=== PATIENT | female | born 1955 | race Two or more races ===

== ENCOUNTER → 2020-08-23 09:37 | Outpatient (BNVA) | payer MEDICARE, MEDICAID, SELFPAY | PROVIDERS: PCP Internal Medicine; Visit Provider Internal Medicine Endocrinology, Diabetes & Metabolism | DX: Z13.89 Encounter for screening for other disorder (principal) | CPT/HCPCS: Q3014 ==

== ENCOUNTER → 2020-10-16 09:46 | Outpatient (BNVA) | payer MEDICARE, MEDICAID, SELFPAY | PROVIDERS: PCP Internal Medicine; Visit Provider Nurse Practitioner Gerontology | DX: E11.65 Type 2 diabetes mellitus with hyperglycemia (principal); E11.21 Type 2 diabetes mellitus with diabetic nephropathy; E11.42 Type 2 diabetes mellitus with diabetic polyneuropathy; E78.5 Hyperlipidemia, unspecified; I10 Essential (primary) hypertension; E66.9 Obesity, unspecified | CPT/HCPCS: 36415; 80053; 80061; 82043; 82607; 82947; 83036; 83721; 84439; 84443; 85027; 99212 ==

== ENCOUNTER 2020-10-16 10:49 | Outpatient (REF) | payer MEDICARE, MEDICAID, SELFPAY ==
[2020-10-16 13:56] LABS: Hematocrit 38.4 % (37-47); Hemoglobin 11.8 g/dl (12.0-16.0); Mean Corpuscular HGB Conc 30.7 g/dl (31.0-35.0); Mean Corpuscular Hemoglobin 24.9 pg (27.0-33.0); Mean Platelet Volume 12.9 fL (9.4-12.3); Platelet Count 167 X10*3/uL (160-400); Red Blood Count 4.74 X10*6/uL (4.20-5.50); Red Cell Distribution Width 13.2 % (11.0-16.0); White Blood Count 5.6 X10*3/uL (4.8-10.8)
[2020-10-16 14:02] LABS: Estimated Average Glucose 237 mg/dL; Hemoglobin A1c % 9.9 %
[2020-10-16 14:37] LABS: Alanine Aminotransferase 14 U/L (0-31); Albumin Level 4.6 g/dL (3.5-5.0); Alkaline Phosphatase 78 U/L (39-117); Anion Gap 19 (12-20); Aspartate Amino Transferase 15 U/L (5-31); Bilirubin Total 0.2 mg/dL (0.0-1.0); Blood Urea Nitrogen 22 mg/dL (9-16); Calcium 9.9 mg/dL (8.4-10.2); Carbon Dioxide 21 mmol/L (22-29); Chloride 109 mmol/L (96-108); Cholesterol 198 mg/dL; Creatinine Urine 64.65 mg/dL; Estimated Glomerular Filt Rate > 60; Glucose Fasting 132 mg/dL (60-99); HDL Cholesterol 43 mg/dL; LDL Cholesterol Calculated 125 mg/dl; Microalbum/Creatinine Ratio Ur 114.4 ug/mg cr; Potassium 4.8 mmol/L (3.3-5.1); Sodium 144 mmol/L (135-145); Total Protein 8.2 g/dL (6.5-8.0); Triglycerides 153 mg/dL
[2020-10-16 14:44] LABS: Free T4 (Free Thyroxine) 1.07 ng/dL (0.71-1.85); Thyroid Stimulating Hormone 0.38 uIU/mL (0.32-4.0)
[2020-10-16 14:46] LABS: Vitamin B12 620 pg/mL (200-900)
[2020-10-17 07:11] LABS: LDL Cholesterol Direct 117 mg/dL (<100)
== END 2020-10-16 10:50 | disposition home or self-care (01) ==
LOC: HO.10HDL 10:49
PROVIDERS: Visit Provider Internal Medicine Endocrinology, Diabetes & Metabolism
DX: Z13.89 Encounter for screening for other disorder (principal)
CPT/HCPCS: 36415; 80053; 80061; 82043; 82607; 83036; 83721; 84439; 84443; 85027

== ENCOUNTER → 2020-10-31 12:55 | Outpatient (BNVA) | payer MEDICARE, MEDICAID, SELFPAY | PROVIDERS: PCP Internal Medicine; Visit Provider Internal Medicine Endocrinology, Diabetes & Metabolism | DX: E11.65 Type 2 diabetes mellitus with hyperglycemia (principal); E11.21 Type 2 diabetes mellitus with diabetic nephropathy; E11.42 Type 2 diabetes mellitus with diabetic polyneuropathy; I10 Essential (primary) hypertension; E78.5 Hyperlipidemia, unspecified; E55.9 Vitamin D deficiency, unspecified; E66.9 Obesity, unspecified | CPT/HCPCS: 82947; 99212 ==

== ENCOUNTER 2021-07-31 17:48 | Inpatient (IN) | payer MEDICARE, MEDICAID, SELFPAY ==
--- NOTE | ~2021-07-31 | US_ITS ---
EXAMINATION: US VENOUS ULTRASOUND WITH DOPPLER LOWER EXTREMITY, BILATERAL CLINICAL INFORMATION: Pain and leg swelling left greater than right lower extremity. COMPARISON: None TECHNIQUE: Ultrasound of the deep veins is performed from the hip to the calf with compression sonography and color and pulse Doppler assessment. Spectral analysis with color-flow imaging is performed. FINDINGS: RIGHT: There is normal venous compression and respiratory variation and augmented flow. The visualized common femoral vein, superficial femoral vein, profunda femoral vein, popliteal vein, and the trifurcation region shows no evidence of deep venous thrombosis. There is no significant popliteal fossa cyst. No popliteal artery aneurysm. LEFT: There is normal venous compression and respiratory variation and augmented flow. The visualized common femoral vein, superficial femoral vein, profunda femoral vein, popliteal vein, and the trifurcation region shows no evidence of deep venous thrombosis. There is no significant popliteal fossa cyst. The artery aneurysm. Somewhat limited evaluation of the left calf related to wound. No abscess is seen in the region of the wound. US/US venous duplex LE BI IMPRESSION: No acute DVT demonstrated in the bilateral lower extremities.
[2021-07-31 19:59] VITALS: BP 152/78; PULSE 98; RESP 16; TEMP 36.7; O2SAT 99; BMI 28.1
[2021-07-31 22:54] LABS: Basophils Percent Auto 0.5 % (0-2); Eosinophils Absolute Auto 0.2 X10*3/uL (0.0-0.4); Eosinophils Percent Auto 2.5 % (0-4); Hematocrit 39.8 % (37.0-47.0); Hemoglobin 12.6 g/dl (12.0-16.0); Imm Gran Abs Auto 0.02 X10*3/uL (0.00-0.03); Imm Gran Pct Auto 0.3 % (0.0-0.4); Lymphocytes Absolute Auto 1.3 X10*3/uL (1.2-4.9); Lymphocytes Percent Auto 20.1 % (20-40); MANUAL DIFF FLAG NO; Mean Corpuscular HGB Conc 31.7 g/dl (31.0-35.0); Mean Corpuscular Hemoglobin 26.1 pg (27.0-33.0); Mean Corpuscular Volume 82.6 fL (80.0-98.0); Mean Platelet Volume 11.5 fL (9.4-12.3); Monocytes Absolute Auto 0.4 X10*3/uL (0.1-1.2); Monocytes Percent Auto 5.4 % (2-11); Neutrophils Absolute Auto 4.6 x10*3/uL (2.0-8.3); Neutrophils Percent Auto 71.2 % (45-73); Platelet Count 153 X10*3/uL (160-400); Red Blood Count 4.82 X10*6/uL (4.20-5.50); Red Cell Distribution Width 13.3 % (11.0-16.0); White Blood Count 6.5 X10*3/uL (4.8-10.8)
[2021-07-31 23:06] LABS: Lactic Acid 1.5 mmol/L (0.5-2.0)
[2021-07-31 23:07] LABS: Anion Gap 10 (12-20); Blood Urea Nitrogen 15 mg/dL (9-16); C Reactive Protein 1.19 mg/dL (< or = 0.50); Calcium 10.4 mg/dL (8.4-10.2); Carbon Dioxide 29 mmol/L (22-29); Chloride 107 mmol/L (96-108); Creatinine Clr Calc Pharmacy 58.1; Estimated Glomerular Filt Rate > 60; Glucose Random 184 mg/dL (60-115); Potassium 4.4 mmol/L (3.3-5.1); Sodium 142 mmol/L (135-145)
[2021-07-31 23:33] LABS: Delay - Hematology DELAY
[2021-08-01] VITALS (7 sets, daily range): BP systolic 107–155; BP diastolic 57–80; PULSE 90–102; RESP 14–18; TEMP 36.1–37; O2SAT 97–100
[2021-08-01 00:07] LABS: Erythrocyte Sedimentation Rate 30 MM/HR (0-20)
--- NOTE | 2021-08-01 02:56 | ED_ITS ---
HPI - Wound/Laceration General Chief Complaint: Wound/Laceration Stated Complaint: foot pain Time Seen by Provider: 07/31/21 21:51 Source: patient, family (Daughter) and fish checker Mode of arrival: ambulatory Limitations: no limitations History of Present Illness HPI narrative: 66-year-old female history of diabetes diagnosed recently at [facility] with left leg cellulitis patient was prescribed Keflex, and despite antibiotic the daughter noticed that the redness is spreading. No fever, no chills. Related Data Home Medications Medication Instructions Recorded Confirmed amlodipine 5 mg tablet 5 mg PO DAILY tab 08/23/20 03/12/21 mirtazapine 45 mg tablet 45 mg PO BEDTIME tab 08/23/20 03/12/21 Previous Rx's Medication Instructions Recorded dicyclomine 20 mg tablet 20 mg PO QID #120 cap 11/14/20 blood sugar diagnostic (FreeStyle #100 ea 11/15/20 Lite Strips) 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 meter (FreeStyle #1 ea 11/15/20 Lite Meter) lancets 28 gauge (FreeStyle #100 ea 11/15/20 Lancets) wheelchair #1 ea 11/15/20 omeprazole 20 mg capsule,delayed 20 mg PO BID #180 cap 01/08/21 release naproxen 500 mg tablet 500 mg PO Q12H PRN 90 Days #180 tab 06/11/21 atorvastatin 80 mg tablet 80 mg PO BEDTIME 90 Days #90 tab 06/26/21 cholecalciferol (vitamin D3) 50 50 mcg PO DAILY 90 Days #90 cap 07/16/21 mcg (2,000 unit) capsule dulaglutide 1.5 mg/0.5 mL 1.5 mg (0.5 mL) SUBCUT QWEEK 30 07/16/21 subcutaneous pen injector Days #2 ml (Trulicity) empagliflozin 25 mg tablet 25 mg PO QAM 90 Days #90 tab 07/16/21 (Jardiance) lisinopril 40 mg tablet 40 mg PO DAILY 90 Days #90 tab 07/16/21 omega 8-uoh-kpu-fish oil 1,000 mg 1 cap PO BID 30 Days #60 cap 07/16/21 (120 mg-180 mg) capsule (Fish Oil) Allergies Allergy/AdvReac Type Severity Reaction Status Date / Time metformin Allergy Intermediate Intolerance, Verified 03/12/21 12:57 chest pain, high BP, diarrhea pantoprazole Allergy Intermediate rash Verified 03/12/21 12:57 pork derived (porcine) Allergy Intermediate SEVERE N/V Verified 03/12/21 12:57 [PORK DERIVED (PORCINE)] ABD PAIN quetiapine Allergy Intermediate chest pain Verified 03/12/21 12:57 milk Allergy Intermediate gas/stomach Uncoded 03/12/21 12:57 pain orange juice Allergy Intermediate gerd Uncoded 03/12/21 12:57 pork and shellfish Allergy Intermediate rash Uncoded 03/12/21 12:57 SEAFOOD Allergy Intermediate RASH, ITCHY Uncoded 03/12/21 12:57 Tilapia Allergy Intermediate diarrhea Uncoded 03/12/21 12:57 tuna Allergy Intermediate itchiness Uncoded 03/12/21 12:57 Review of Systems Review of Systems: All other systems are reviewed and are negative Constitutional: Reports as per HPI and Reports no additional constitutional complaints Eyes: Reports as per HPI and Reports no additional eye complaints Reports system reviewed and no additional complaints, except as documented Cardiovascular: Reports as per HPI and Reports no additional cardiovascular complaints Respiratory: Reports as per HPI and Reports no additional respiratory complaints Gastrointestinal: Reports as per HPI and Reports no additional gastrointestinal complaints Genitourinary: Reports no additional female genitourinary complaints Musculoskeletal: Reports no additional musculoskeletal complaints Skin/Breast: Reports system reviewed and no additional complaints, except as docu Psychiatric: Reports no additional psychiatric complaints Endocrine: Reports no additional endocrine complaints Hematologic/Lymphatic: Reports no additional hematologic/lymphatic complaints Allergic/Immunologic: Reports no additional allergic/immunologic complaints Reports system reviewed and no additional complaints, except as documented and Reports Abnormal speech present [facility] Past Medical History Medical History Dementia Diabetes type 2, uncontrolled Diabetic nephropathy associated with type 2 diabetes mellitus Diabetic polyneuropathy associated with type 2 diabetes mellitus Dyslipidemia GERD (gastroesophageal reflux disease) Hypertension Obesity (BMI 30-39.9) Retinitis pigmentosa of both eyes Vitamin D deficiency Surgical History Hx of cholecystectomy Hx of hernia repair Hx of tubal ligation Family History Family History Father No problems noted. Mother Heart disease HTN (hypertension) Sister Pre-diabetes Brother Leukemia Son In good health Daughter In good health Daughter In good health Social History Social History Household Members: Family Housing: Apartment Alcohol intake: never Patient Tobacco Use Status: Never used Tobacco e-Cigarette/Vaping Use: Never Used Second Hand Smoke Exposure: No Use of substances other than those prescribed or required for medical reasons: No Advance Directives: No Advance Directives Information Provided: No service: No Current occupational status: disabled Physical Exam Vital Signs: Vital Signs: Last Vital Signs Temp 97.9 F 08/01/21 02:27 Pulse 96 08/01/21 02:27 Resp 16 08/01/21 02:27 BP 155/75 H 08/01/21 02:27 Pulse Ox 100 08/01/21 02:27 BMI result Body Mass Index 28.1 Vital signs have been reviewed as appeared to be correct. Blood pressure normal. Heart rate normal. Respiration rate normal. Temperature normal. Oxygen saturation normal. Appearance: Alert. Oriented X3. No acute distress. Head: Normal external exam. Normocephalic. Atraumatic. No Gutiérrez signs noted. No raccoon eyes noted Eyes: PERRLA. EOMI. Conjunctiva and sclera normal. Eyelids normal. ENT: TM's Normal. Pharynx normal. Uvula midline. Moist mucous membranes. No trismus noted. No drooling noted. No muffled voice noted. Neck: Normal inspection. Neck supple. FROM. No adenopathy. Thyroid Normal. No meningeal signs. No neck mass noted. CVS: Normal heart rate and rhythm. Heart sound normal. No murmurs noted. Pulses normal throughout. Respiratory: No respiratory distress. Painless inspiration. Breath sounds normal. No wheezes/rales/rhonchi noted. Chest nontender. No accessory muscle usage noted or decreased air movement noted. Abdomen: Soft and nontender. Bowel sounds normal in all 4 quadrants. No distention noted. No organomegaly noted. No visible injury noted. Back: No CVA tenderness. Full range of motion noted. Skin: Skin warm and dry. Normal skin color. Normal skin turgor. No rashes/lesions/lacerations noted. Extremities: Left leg exam: 5 x 3 cm area of redness, hotness, tenderness, no fluctuation, no discharge. Neuro: Oriented X 3. Cranial nerve exam: II-XII are grossly intact No motor deficit. No sensory deficit. Reflexes normal. Course Course Course Narrative: Assessment and plan. Left leg cellulitis not responding to p.o. oral antibiotic, will start the patient on IV Zosyn/vancomycin patient did not meet criteria for SIRS. MDM - Wound/Laceration Lab Data Attestation: I reviewed the patient's lab results. Result diagrams: 07/31/21 22:44 07/31/21 22:44 Labs: Lab Results 07/31/21 07/31/21 07/31/21 Range/Units 22:44 22:44 22:44 WBC 6.5 (4.8-10.8) X10*3/uL RBC 4.82 (4.20-5.50) X10*6/uL Hgb 12.6 (12.0-16.0) g/dl Hct 39.8 (37.0-47.0) % MCV 82.6 (80.0-98.0) fL MCH 26.1 L (27.0-33.0) pg MCHC 31.7 (31.0-35.0) g/dl RDW 13.3 (11.0-16.0) % Plt Count 153 L (160-400) X10*3/uL MPV 11.5 (9.4-12.3) fL Immature Gran % (Auto) 0.3 (0.0-0.4) % Neut % (Auto) 71.2 (45-73) % Lymph % (Auto) 20.1 (20-40) % Cross % (Auto) 5.4 (2-11) % Eos % (Auto) 2.5 (0-4) % Baso % (Auto) 0.5 (0-2) % Lymph # (Auto) 1.3 (1.2-4.9) X10*3/uL Cross # (Auto) 0.4 (0.1-1.2) X10*3/uL Eos # (Auto) 0.2 (0.0-0.4) X10*3/uL Baso # (Auto) 0.0 (0.0-0.2) X10*3/uL Abs Immat Gran (auto) 0.02 (0.00-0.03) X10*3/uL Absolute Neuts (auto) 4.6 (2.0-8.3) x10*3/uL Absolute Nucleated RBC 0.000 (0.0-0.012) X10*3/uL Nucleated RBC % (auto) 0.0 (0.0-0.2) /100WBC ESR 30 H (0-20) MM/HR Hematology Spec Commnt Sodium 142 (135-145) mmol/L Potassium 4.4 (3.3-5.1) mmol/L Chloride 107 (96-108) mmol/L Carbon Dioxide 29 (22-29) mmol/L Anion Gap 10 L (12-20) BUN 15 (9-16) mg/dL Creatinine 0.86 (0.5-1.4) mg/dL Estim Creat Clear Calc 58.1 Estimated GFR > 60 Random Glucose 184 H (60-115) mg/dL Lactic Acid (0.5-2.0) mmol/L Calcium 10.4 H (8.4-10.2) mg/dL C-Reactive Protein 1.19 H (< or = 0.50) mg/dL 07/31/21 07/31/21 Range/Units 22:44 23:33 WBC (4.8-10.8) X10*3/uL RBC (4.20-5.50) X10*6/uL Hgb (12.0-16.0) g/dl Hct (37.0-47.0) % MCV (80.0-98.0) fL MCH (27.0-33.0) pg MCHC (31.0-35.0) g/dl RDW (11.0-16.0) % Plt Count (160-400) X10*3/uL MPV (9.4-12.3) fL Immature Gran % (Auto) (0.0-0.4) % Neut % (Auto) (45-73) % Lymph % (Auto) (20-40) % Cross % (Auto) (2-11) % Eos % (Auto) (0-4) % Baso % (Auto) (0-2) % Lymph # (Auto) (1.2-4.9) X10*3/uL Cross # (Auto) (0.1-1.2) X10*3/uL Eos # (Auto) (0.0-0.4) X10*3/uL Baso # (Auto) (0.0-0.2) X10*3/uL Abs Immat Gran (auto) (0.00-0.03) X10*3/uL Absolute Neuts (auto) (2.0-8.3) x10*3/uL Absolute Nucleated RBC (0.0-0.012) X10*3/uL Nucleated RBC % (auto) (0.0-0.2) /100WBC ESR (0-20) MM/HR Hematology Spec Commnt DELAY Sodium (135-145) mmol/L Potassium (3.3-5.1) mmol/L Chloride (96-108) mmol/L Carbon Dioxide (22-29) mmol/L Anion Gap (12-20) BUN (9-16) mg/dL Creatinine (0.5-1.4) mg/dL Estim Creat Clear Calc Estimated GFR Random Glucose (60-115) mg/dL Lactic Acid 1.5 (0.5-2.0) mmol/L Calcium (8.4-10.2) mg/dL C-Reactive Protein (< or = 0.50) mg/dL Discharge Plan Discharge Clinical Impression: Cellulitis of left leg Patient Disposition: Admitted As Inpatient Prescriptions: No Action dicyclomine 20 mg tablet 20 mg PO QID Qty: 120 RF: 6 (DME) FreeStyle Lite Strips Strip See Rx Instructions .MEDSUPPLY Qty: 100 RF: 6 (DME) lancets [FreeStyle Lancets] 28 gauge misc See Rx Instructions .MEDSUPPLY Qty: 100 RF: 7 (DME) 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 meter [FreeStyle Lite Meter] Kit See Rx Instructions miscellaneous .MEDSUPPLY Qty: 1 RF: 0 omeprazole 20 mg capsule,delayed release(DR/EC) 20 mg PO BID Qty: 180 RF: 3 naproxen 500 mg tablet 500 mg PO Q12H PRN (Reason: pain) 90 Days Qty: 180 RF: 1 atorvastatin 80 mg tablet 80 mg PO BEDTIME 90 Days Qty: 90 RF: 1 Jardiance 25 mg tablet 25 mg PO QAM 90 Days Qty: 90 RF: 1 Trulicity 1.5 mg/0.5 mL pen injector 1.5 mg subcut QWEEK 30 Days Qty: 2 RF: 4 omega 4-kfu-vih-fish oil [Fish Oil] 1,000 mg (120 mg-180 mg) capsule 1 cap PO BID 30 Days Qty: 60 RF: 4 cholecalciferol (vitamin D3) 50 mcg (2,000 unit) capsule 50 mcg PO DAILY 90 Days Qty: 90 RF: 0 lisinopril 40 mg tablet 40 mg PO DAILY 90 Days Qty: 90 RF: 1 (DME) wheelchair See Rx Instructions .Route .MEDSUPPLY Qty: 1 RF: 0 mirtazapine 45 mg tablet 45 mg PO BEDTIME RF: 0 amlodipine 5 mg tablet 5 mg PO DAILY RF: 0
[2021-08-01] MEDS: Piperacillin Sodium/Tazobactam 3.375 GM in 0.9 % Sodium Chloride 50 ML IV ×3 (03:20→15:28)
[2021-08-01 03:32] LABS: COVID-19 Test Negative (Negative); IDNOW Serial# 9DD0AD1C
--- NOTE | 2021-08-01 03:40 | PM.IMHP ---
History of Present Illness Date of Service: 08/01/21 Chief Complaint: cellulitis 66-year-old female with a past medical history of hypertension, hyperlipidemia, diabetes, diabetic nephropathy, diabetic polyneuropathy, GERD, rhinitis pigment is of both eyes, vitamin-D deficiency, obesity; presented to the hospital with a chief complaint of left leg pain. Patient reported that she has been having left leg pain and swelling for about a week to 10 days; has [facility] at [facility] 07[facility]2021 and noted to have left leg localized cellulitis; given cephalexin and sent home to follow-up with the PCP. Patient reports that she has been taking her antibiotics; but continued to have pain and swelling; hence decided to come to the ER for further evaluation. Denies any ulcers or discharge. Denies any chest pain palpitations lightheadedness or dizziness. Denies any falls or trauma. Denies any GI symptoms. Review of all other systems is negative except mentioned above ER course: Per ER team patient noted to have left leg cellulitis; given IV vancomycin and Zosyn. Admitted to the hospital for further management. [facility] Medical History Dementia Diabetes type 2, uncontrolled Diabetic nephropathy associated with type 2 diabetes mellitus Diabetic polyneuropathy associated with type 2 diabetes mellitus Dyslipidemia GERD (gastroesophageal reflux disease) Hypertension Obesity (BMI 30-39.9) Retinitis pigmentosa of both eyes Vitamin D deficiency Family History Father No problems noted. Mother Heart disease HTN (hypertension) Sister Pre-diabetes Brother Leukemia Son In good health Daughter In good health Daughter In good health Pertinent family history: as above Surgical History Hx of cholecystectomy Hx of hernia repair Hx of tubal ligation Social History Household Members: Family Housing: Apartment Alcohol intake: never Patient Tobacco Use Status: Never used Tobacco e-Cigarette/Vaping Use: Never Used Second Hand Smoke Exposure: No Use of substances other than those prescribed or required for medical reasons: No Advance Directives: No Advance Directives Information Provided: No service: No Current occupational status: disabled Meds Allergies Allergy/AdvReac Type Severity Reaction Status Date / Time metformin Allergy Intermediate Intolerance, Verified 03/12/21 12:57 chest pain, high BP, diarrhea pantoprazole Allergy Intermediate rash Verified 03/12/21 12:57 pork derived (porcine) Allergy Intermediate SEVERE N/V Verified 03/12/21 12:57 [PORK DERIVED (PORCINE)] ABD PAIN quetiapine Allergy Intermediate chest pain Verified 03/12/21 12:57 milk Allergy Intermediate gas/stomach Uncoded 03/12/21 12:57 pain orange juice Allergy Intermediate gerd Uncoded 03/12/21 12:57 pork and shellfish Allergy Intermediate rash Uncoded 03/12/21 12:57 SEAFOOD Allergy Intermediate RASH, ITCHY Uncoded 03/12/21 12:57 Tilapia Allergy Intermediate diarrhea Uncoded 03/12/21 12:57 tuna Allergy Intermediate itchiness Uncoded 03/12/21 12:57 Active Medications: Current Medications Dextrose (Dextrose 50 % 25 Gm/50 Ml Vial) 25 gm IVPUSH Q15M PRN; Protocol PRN Reason: per Hypoglycemia Standing Ord. Glucose (Glucose Gel 15 Gm Gel..Gram.) 15 gm PO Q15M PRN; Protocol PRN Reason: per Hypoglycemia Standing Ord. Vancomycin HCl 1,500 mg/ (Sodium Chloride) 500 mls @ 333.333 mls/hr IV ONCE ONE Stop: 08/01/21 05:29 Vancomycin HCl 1,000 mg/ (Sodium Chloride) 270 mls @ 270 mls/hr IV Q12H EMMANUEL Piperacillin Sod/Tazobactam (Sod 3.375 gm/ Sodium Chloride) 50 mls @ 100 mls/hr IV Q6H EMMANUEL Insulin Glargine (Insulin Glargine,Hum.Rec.Anlog 100 Unit/Ml 10 Ml Vial) 10 unit SUBCUT BEDTIME EMMANUEL Insulin Human Lispro (Insulin Lispro 100 Unit/Ml 3 Ml Vial) 0 unit SUBCUT QIDACHS EMMANUEL; Protocol Pharmacy Consult (Consult Rx Vancomycin Dosing) 1 each MISCELLANE DAILY PRN PRN Reason: Consult order Pharmacy Consult (Consult Rx Vancomycin Dosing) 1 each MISCELLANE DAILY PRN PRN Reason: Consult order Home Medications Medication Instructions Recorded Confirmed Last Taken Type amlodipine 5 mg tablet 5 mg PO DAILY tab 08/23/20 03/12/21 Unknown History mirtazapine 45 mg tablet 45 mg PO BEDTIME tab 08/23/20 03/12/21 Unknown History Physical Exam Vital Signs and Narrative: Vital Signs: Last Vital Signs Temp 97.9 F 08/01/21 02:27 Pulse 96 08/01/21 02:27 Resp 16 08/01/21 02:27 BP 155/75 H 08/01/21 02:27 Pulse Ox 100 08/01/21 02:27 BMI result Body Mass Index 28.1 Gen: Appears be in no acute distress HEENT: NCAT, Moist mucosa. Pulmonary: Vesicular breath sounds, fair air entry CVS: Normal S1-S2 Abdomen: BS+, Soft, Nontender Extremities: Warm well perfused Neuro: Alert and awake. Results Labs CBC and Chem 7: 07/31/21 22:44 07/31/21 22:44 Labs: Laboratory Results - last 24 hr 07/31/21 07/31/21 07/31/21 22:44 22:44 22:44 MCV 82.6 MCH 26.1 L MCHC 31.7 RDW 13.3 Plt Count 153 L MPV 11.5 Immature Gran % (Auto) 0.3 Neut % (Auto) 71.2 Lymph % (Auto) 20.1 [place] % (Auto) 5.4 Eos % (Auto) 2.5 Baso % (Auto) 0.5 Lymph # (Auto) 1.3 [place] # (Auto) 0.4 Eos # (Auto) 0.2 Baso # (Auto) 0.0 Abs Immat Gran (auto) 0.02 Absolute Neuts (auto) 4.6 Absolute Nucleated RBC 0.000 Nucleated RBC % (auto) 0.0 ESR 30 H Hematology Spec Commnt Anion Gap 10 L Estim Creat Clear Calc 58.1 Estimated GFR > 60 Random Glucose 184 H Lactic Acid Calcium 10.4 H C-Reactive Protein 1.19 H COVID-19 (SABAS) COVID-19 Clin Com 07/31/21 07/31/21 08/01/21 22:44 23:33 03:12 MCV MCH MCHC RDW Plt Count MPV Immature Gran % (Auto) Neut % (Auto) Lymph % (Auto) [place] % (Auto) Eos % (Auto) Baso % (Auto) Lymph # (Auto) [place] # (Auto) Eos # (Auto) Baso # (Auto) Abs Immat Gran (auto) Absolute Neuts (auto) Absolute Nucleated RBC Nucleated RBC % (auto) ESR Hematology Spec Commnt DELAY Anion Gap Estim Creat Clear Calc Estimated GFR Random Glucose Lactic Acid 1.5 1.0 Calcium C-Reactive Protein COVID-19 (SABAS) COVID-19 Clin Com 08/01/21 03:12 MCV MCH MCHC RDW Plt Count MPV Immature Gran % (Auto) Neut % (Auto) Lymph % (Auto) [place] % (Auto) Eos % (Auto) Baso % (Auto) Lymph # (Auto) [place] # (Auto) Eos # (Auto) Baso # (Auto) Abs Immat Gran (auto) Absolute Neuts (auto) Absolute Nucleated RBC Nucleated RBC % (auto) ESR Hematology Spec Commnt Anion Gap Estim Creat Clear Calc Estimated GFR Random Glucose Lactic Acid Calcium C-Reactive Protein COVID-19 (SABAS) Negative COVID-19 Clin Com See Note Assessment and Plan (1) Cellulitis of left leg: Status: Acute (2) Diabetic polyneuropathy associated with type 2 diabetes mellitus: Status: Acute (3) Hypertension: Qualifiers: Hypertension type: essential hypertension Qualified Code(s): I10 - Essential (primary) hypertension Status: Acute (4) Dyslipidemia: Status: Acute 66-year-old female with a past medical history of hypertension, hyperlipidemia, diabetes, diabetic nephropathy, diabetic polyneuropathy, GERD, rhinitis pigment is of both eyes, vitamin-D deficiency, obesity; presented to the hospital with a chief complaint of left leg pain. Noted to have left leg cellulitis. Failed outpatient antibiotics. Admitted for further management. Left leg cellulitis: Continue broad-spectrum antibiotics IV vancomycin and Zosyn. Id consult. Will obtain venous duplex and nonvascular ultrasound to rule out abscess. Diabetes: Will give the patient on Lantus 10 units and insulin sliding scale. Monitor fingerstick glucose and adjust as needed. History of hypertension / hyperlipidemia: Continue home medications. DVT prophylaxis: Subcu heparin Code status: Full code Quality Stroke Does the patient have a stroke diagnosis?: No VTE Prior VTE?: No VTE Risk Level:: Medical - low VTE Device Contraindication: Treatment Not Indicated VTE Drug Contraindication: N/A - Med Ordered
[2021-08-01] MEDS: vancomycin HCL 1,500 MG in 0.9 % Sodium Chloride 500 ML 333.33 MG IV (04:20)
[2021-08-01 07:18] LABS: MANUAL DIFF FLAG NO
[2021-08-01 07:27] LABS: Basophils Percent Auto 0.2 % (0-2); Eosinophils Absolute Auto 0.1 X10*3/uL (0.0-0.4); Hemoglobin 10.7 g/dl (12.0-16.0); Imm Gran Abs Auto 0.02 X10*3/uL (0.00-0.03); Imm Gran Pct Auto 0.3 % (0.0-0.4); Lymphocytes Absolute Auto 1.4 X10*3/uL (1.2-4.9); Lymphocytes Percent Auto 23.7 % (20-40); Mean Corpuscular HGB Conc 30.6 g/dl (31.0-35.0); Mean Corpuscular Hemoglobin 24.9 pg (27.0-33.0); Mean Corpuscular Volume 81.6 fL (80.0-98.0); Mean Platelet Volume 12.3 fL (9.4-12.3); Monocytes Absolute Auto 0.5 X10*3/uL (0.1-1.2); Neutrophils Absolute Auto 3.9 x10*3/uL (2.0-8.3); Neutrophils Percent Auto 65.8 % (45-73); Platelet Count 142 X10*3/uL (160-400); Red Blood Count 4.29 X10*6/uL (4.20-5.50); Red Cell Distribution Width 13.3 % (11.0-16.0); White Blood Count 5.9 X10*3/uL (4.8-10.8)
[2021-08-01 07:38] LABS: Anion Gap 10 (12-20); Blood Urea Nitrogen 16 mg/dL (9-16); Calcium 9.7 mg/dL (8.4-10.2); Carbon Dioxide 28 mmol/L (22-29); Chloride 110 mmol/L (96-108); Creatinine Clr Calc Pharmacy 58.1; Estimated Glomerular Filt Rate > 60; Glucose Random 154 mg/dL (60-115); Potassium 4.5 mmol/L (3.3-5.1); Sodium 143 mmol/L (135-145)
[2021-08-01 07:43] LABS: Glucose, Whole Blood 125 mg/dL (60-115)
[2021-08-01] MEDS: Omeprazole 20 MG CAPSULE.DR PO ×2 (08:02→21:06)
[2021-08-01] MEDS: Heparin Sodium,Porcine 5,000 UNIT/ML VIAL 5000 UNIT SUBCUT ×3 (08:02→21:07)
[2021-08-01] MEDS: Cholecalciferol (Vitamin D3) 25 MCG TABLET 50 MCG PO (08:02)
[2021-08-01] MEDS: amLODIPine Besylate 5 MG TABLET PO (08:02)
[2021-08-01] MEDS: lisinopriL 40 MG TABLET PO (08:02)
[2021-08-01] MEDS: 0.9 % Sodium Chloride Flush 3 ML SYRINGE IVFLUSH ×4 (08:03→16:35)
--- NOTE | 2021-08-01 10:49 | PHA.MEDREC ---
Pharmacy Consult ? Medication Reconciliation Pharmacy has completed the medication reconciliation. Spoke with patient daughter with [facility]. Patient no longer taking dicyclomine. Adriana Elliott, PharmD
--- NOTE | 2021-08-01 10:51 | PC.NURSE ---
us completed this am. pt has iv abx infusing at this time. family remains at bedside d/t pt disability. aware of plan of care and denied having any questions. pharmacy at bedside earlier with axle bearing polisher.
--- NOTE | 2021-08-01 11:37 | PHA.PROG ---
Admission Date/Time: August 01, 2021 05:44 Indication: Cellulitis Weight in k.853 kg Adjusted body weight in K kg [place] body weight in K.1 Obesity Dosing Indication % IBW: 139 % Serum Creatinine - Last 168 Hours 07/31/21 08/01/21 22:44 06:54 Creatinine 0.86 0.86 Estimated CrCl and GFR - Last 168 Hours 07/31/21 08/01/21 22:44 06:54 Estim Creat Clear Calc 58.1 58.1 Estimated GFR > 60 > 60 Vancomycin Loading Dose: 1500 mg Current Vancomycin Dosing Regimen: 750 mg Q12H Date and Time for next Vancomycin Level to be drawn: 08/02 @ 1400 Pharmacist Comments on Vancomycin Plan: Loading dose given 08/01 @ 0420. Maintenance dose vancomycin 750 mg Q12H to be started 08/01 @ 1600. Expected AUC of 501 with a trough of 16.6. Pharmacy to monitor renal function daily. Adriana Elliott PharmD Vancomycin dosing will take advantage of [employer] as a clinical decision support tool that uses Bayesian modeling to calculate individual patient's pharmacokinetic parameters and forecast the patient's drug concentration time course with the target goal AUC 24 range of 400 - 600 mg/L/hr.
--- NOTE | 2021-08-01 11:52 | MHC.CM.PN ---
CM CALLED PTS DAUGHTERROSHNI [phone]. ROSHNI INDICATED SHE WOULD NEED AN DIVER ASSISTANT CM CALLED BACK WITH THE ASSISTANCE OF [employer] #[id number]. ROSHNI DID NOT ANSWER. CM WILL ATTEMPT TO MAKE CONTACT WITH PTS DAUGHTER AT A LATER TIME PER EMR, PT LIVES WITH HER DAUGHTER PTS PCP IS BENNY ARANA PT DOES NOT HAVE A HCP ON FILE IT IS UNKNOWN IF PT HAS [employer] SERVICES IN THE HOME OR IF DAUGHTER IS [employer] IMM TO BE MAILED TO PTS/SUPA HOME CURRENT DC PLAN IS HOME WITH NO NEW SERVICES
--- NOTE | 2021-08-01 12:13 | PC.NURSE ---
patient awake/alert, helper at bedside due to patient being blind. pt c/o 03/06 abebe pain only when palpated, area red/hot to touch, iv antibiotics infused per order, will continue to monitor.
[2021-08-01 14:07] LABS: Glucose, Whole Blood 134 mg/dL (60-115)
--- NOTE | 2021-08-01 15:29 | PC.NURSE ---
patient sleeping, woke to verbal stimulus, pt medicated per order, will continue to monitor.
--- NOTE | 2021-08-01 16:31 | PM.EVENT ---
Event Note Date of Service: 08/01/21 Event Note: Chart reviewed/patient examined. Exam unchanged from admission. Agree with antibiotics as ordered. Titrate insulin as indicated. Await ID input
[2021-08-01 16:33] LABS: Glucose, Whole Blood 123 mg/dL (60-115)
[2021-08-01] MEDS: vancomycin HCL 750 MG in 0.9 % Sodium Chloride 250 ML 265 MG IV (16:34)
--- NOTE | 2021-08-01 17:08 | W.PM.IDCN ---
History of Present Illness Data of Consult Service Date: 08/01/21 Requesting physician: Titus Bryan Primary Care Provider: Anabela Thompson MD [facility] Reason for consult: left leg cellulitis She presents to hospital with discomfort left leg and spreading erythema She fell and had pain since three day ago. She was seen at [facility] and prescribed Keflex and are of redness has spread. [facility] Past Medical History Medical History Dementia Diabetes type 2, uncontrolled Diabetic nephropathy associated with type 2 diabetes mellitus Diabetic polyneuropathy associated with type 2 diabetes mellitus Dyslipidemia GERD (gastroesophageal reflux disease) Hypertension Obesity (BMI 30-39.9) Retinitis pigmentosa of both eyes Vitamin D deficiency Family History Family History Father No problems noted. Mother Heart disease HTN (hypertension) Sister Pre-diabetes Brother Leukemia Son In good health Daughter In good health Daughter In good health Family history: reviewed and not pertinent Surgical History Surgical History Hx of cholecystectomy Hx of hernia repair Hx of tubal ligation Social History Social History Household Members: Family Housing: Apartment Alcohol intake: never Patient Tobacco Use Status: Never used Tobacco e-Cigarette/Vaping Use: Never Used Second Hand Smoke Exposure: No service: No Current occupational status: disabled Meds Allergies Allergy/AdvReac Type Severity Reaction Status Date / Time metformin Allergy Intermediate Intolerance, Verified 08/09/21 14:10 chest pain, high BP, diarrhea pantoprazole Allergy Intermediate rash Verified 08/09/21 14:10 pork derived (porcine) Allergy Intermediate SEVERE N/V Verified 08/09/21 14:10 [PORK DERIVED (PORCINE)] ABD PAIN quetiapine Allergy Intermediate chest pain Verified 08/09/21 14:10 milk Allergy Intermediate gas/stomach Uncoded 08/09/21 14:10 pain orange juice Allergy Intermediate gerd Uncoded 08/09/21 14:10 pork and shellfish Allergy Intermediate rash Uncoded 08/09/21 14:10 SEAFOOD Allergy Intermediate RASH, ITCHY Uncoded 08/09/21 14:10 Tilapia Allergy Intermediate diarrhea Uncoded 08/09/21 14:10 tuna Allergy Intermediate itchiness Uncoded 08/09/21 14:10 Active Medications: Current Medications Acetaminophen (Acetaminophen 325 Mg Tablet) 650 mg PO Q6H PRN PRN Reason: Pain, Mild (Pain Scale 1-3) Amlodipine Besylate (Amlodipine Besylate 5 Mg Tablet) 5 mg PO DAILY COUNTS INCLUDE 234 BEDS AT THE [facility]; Protocol Last Admin: 08/01/21 08:02 Dose: 5 mg Documented by: Atorvastatin Calcium (Atorvastatin Calcium 80 Mg Tablet) 80 mg PO BEDTIME EMMANUEL Dextrose (Dextrose 50 % 25 Gm/50 Ml Vial) 25 gm IVPUSH Q15M PRN; Protocol PRN Reason: per Hypoglycemia Standing Ord. Glucose (Glucose Gel 15 Gm Gel..Gram.) 15 gm PO Q15M PRN; Protocol PRN Reason: per Hypoglycemia Standing Ord. Heparin Sodium (Porcine) (Heparin Sodium,Porcine 5,000 Unit/Ml Vial) 5,000 unit SUBCUT Q8H COUNTS INCLUDE 234 BEDS AT THE [facility] Last Admin: 08/01/21 15:27 Dose: 5,000 unit Documented by: Piperacillin Sod/Tazobactam (Sod 3.375 gm/ Sodium Chloride) 50 mls @ 100 mls/hr IV Q6H COUNTS INCLUDE 234 BEDS AT THE [facility] Last Infusion: 08/01/21 15:58 Dose: Infused Documented by: Vancomycin HCl 750 mg/ Sodium (Chloride) 265 mls @ 265 mls/hr IV Q12H COUNTS INCLUDE 234 BEDS AT THE [facility] Last Admin: 08/01/21 16:34 Dose: 265 mls/hr Documented by: Insulin Glargine (Insulin Glargine,Hum.Rec.Anlog 100 Unit/Ml 10 Ml Vial) 10 unit SUBCUT BEDTIME COUNTS INCLUDE 234 BEDS AT THE [facility] Insulin Human Lispro (Insulin Lispro 100 Unit/Ml 3 Ml Vial) 0 - 10 unit SUBCUT QIDACHS COUNTS INCLUDE 234 BEDS AT THE [facility]; Protocol Last Admin: 08/01/21 16:40 Dose: Not Given Documented by: Lisinopril (Lisinopril 40 Mg Tablet) 40 mg PO DAILY COUNTS INCLUDE 234 BEDS AT THE [facility]; Protocol Last Admin: 08/01/21 08:02 Dose: 40 mg Documented by: Melatonin (Melatonin 3 Mg Tablet) 6 mg PO BEDTIME PRN PRN Reason: Insomnia Omeprazole (Omeprazole 20 Mg Capsule.) 20 mg PO BID COUNTS INCLUDE 234 BEDS AT THE [facility] Last Admin: 08/01/21 08:02 Dose: 20 mg Documented by: Pharmacy Consult (Consult Rx Vancomycin Dosing) 1 each MISCELLANE DAILY PRN PRN Reason: Consult order Pharmacy Consult (Consult Rx Vancomycin Dosing) 1 each MISCELLANE DAILY PRN PRN Reason: Consult order Senna (Sennosides 8.6 Mg Tablet) 17.2 mg PO BEDTIME PRN PRN Reason: Constipation Sodium Chloride (0.9 % Sodium Chloride Flush 3 Ml Syringe) 3 ml IVFLUSH [facility] Last Admin: 08/01/21 16:34 Dose: 3 ml Documented by: Sodium Chloride (0.9 % Sodium Chloride Flush 3 Ml Syringe) 3 ml IVFLUSH [facility] Last Admin: 08/01/21 16:35 Dose: 3 ml Documented by: Vitamin D (Cholecalciferol (Vitamin D3) 25 Mcg Tablet) 50 mcg PO DAILY COUNTS INCLUDE 234 BEDS AT THE [facility] Last Admin: 08/01/21 08:02 Dose: 50 mcg Documented by: Home Medications Medication Instructions Recorded Confirmed Last Taken Type amlodipine 5 mg tablet 5 mg PO DAILY tab 08/23/20 08/09/21 Unknown History cholecalciferol (vitamin D3) 50 1 cap PO DAILY 08/01/21 08/09/21 Unknown History mcg (2,000 unit) capsule lisinopril 40 mg tablet 1 tab PO DAILY 08/01/21 08/09/21 Unknown History mirtazapine 45 mg tablet 1 tab PO BEDTIME 08/01/21 08/09/21 Unknown History naproxen 500 mg tablet 1 tab PO Q12H PRN 08/01/21 08/09/21 Unknown History omega-3 fatty acids-fish oil 300 1 cap PO BID 08/01/21 08/09/21 Unknown History mg-1,000 mg capsule omeprazole 20 mg capsule,delayed 1 cap PO BID 08/01/21 08/09/21 Unknown History release Physical Exam Vital Signs: Vital Signs: Last Vital Signs Temp 97.7 F 08/01/21 11:42 Pulse 96 08/01/21 11:42 Resp 16 08/01/21 11:42 BP 127/80 08/01/21 11:42 Pulse Ox 100 08/01/21 11:42 BMI result Body Mass Index 28.1 Const: General: cooperative HENMT: Head: Yes normal to inspection Resp: Effort & Inspection: normal respiratory effort Cardio: Rate: regular rate Rhythm: regular rhythm GI: Palpation (GI): Soft to palpation and nontender Extrem: Other: reddened left leg midthigh at site of bruise Results Labs CBC & Chem 7: 08/03/21 05:36 08/03/21 05:36 Labs: Short CBC 07/31/21 08/01/21 Range/Units 22:44 06:54 WBC 6.5 5.9 (4.8-10.8) X10*3/uL Hgb 12.6 10.7 L (12.0-16.0) g/dl Hct 39.8 35.0 L (37.0-47.0) % Plt Count 153 L 142 L (160-400) X10*3/uL BMP 07/31/21 08/01/21 22:44 06:54 Sodium 142 143 Potassium 4.4 4.5 Chloride 107 110 H Carbon Dioxide 29 28 BUN 15 16 Creatinine 0.86 0.86 Calcium 10.4 H 9.7 D Assessment and Plan (1) Cellulitis of left leg: Status: Acute Local cellulitis,staph or strep possible MRSA since no response to Keflex She has not responded to Keflex well Plan Would continue Vancomycin Stop Zosyn Probably discharge on po Doxycycline for 10 days
[2021-08-01 18:35] LABS: Glucose, Whole Blood 107 mg/dL (60-115)
--- NOTE | 2021-08-01 18:44 | PC.NURSE ---
patient ambulated with assist to bathroom, dinner tray was set up for her and patient was able to eat independently. she had no c/o pain or discomfort. will continue to monitor.
[2021-08-01 20:53] LABS: Glucose, Whole Blood 135 mg/dL (60-115)
--- NOTE | 2021-08-01 21:00 | PC.NURSE ---
patient has not been eating well today, her sliding scale insulin has been held due to protocol, notified Dr. Tovar about pts evening blood sugar, lantus is being held as well.
[2021-08-01] MEDS: Atorvastatin Calcium 80 MG TABLET PO (21:06)
--- NOTE | 2021-08-01 21:52 | PC.NURSE ---
contacts if needed Grandson who speaks tajik- camille- [phone] and pts daughter who is new zealander speaking yahaira- [phone]. daughter requested that if staff is not new zealander speaking and needing to call to have us call the grandson who will let her know.
--- NOTE | 2021-08-01 21:55 | PC.NURSE ---
patient a&o, ambulated with assist to bathroom, pt had soft/brown bm, pt picked at her dinner, she was medicated per order, vss, call wilson within reach, will continue to [facility].
[2021-08-02] MEDS: 0.9 % Sodium Chloride Flush 3 ML SYRINGE IVFLUSH ×7 (01:37→23:29)
[2021-08-02 06:11] VITALS: BP 140/82; PULSE 93; RESP 20; TEMP 35.7; O2SAT 100
[2021-08-02] MEDS: vancomycin HCL 750 MG in 0.9 % Sodium Chloride 250 ML 265 MG IV ×2 (06:14→15:13)
[2021-08-02] MEDS: Heparin Sodium,Porcine 5,000 UNIT/ML VIAL 5000 UNIT SUBCUT ×3 (06:15→22:10)
[2021-08-02 07:26] LABS: MANUAL DIFF FLAG NO
[2021-08-02 07:34] LABS: Basophils Percent Auto 0.2 % (0-2); Eosinophils Absolute Auto 0.1 X10*3/uL (0.0-0.4); Eosinophils Percent Auto 2.7 % (0-4); Hematocrit 31.6 % (37.0-47.0); Imm Gran Abs Auto 0.01 X10*3/uL (0.00-0.03); Imm Gran Pct Auto 0.2 % (0.0-0.4); Lymphocytes Absolute Auto 1.7 X10*3/uL (1.2-4.9); Lymphocytes Percent Auto 32.7 % (20-40); Mean Corpuscular HGB Conc 31.6 g/dl (31.0-35.0); Mean Corpuscular Hemoglobin 25.4 pg (27.0-33.0); Mean Corpuscular Volume 80.2 fL (80.0-98.0); Mean Platelet Volume 11.5 fL (9.4-12.3); Monocytes Absolute Auto 0.4 X10*3/uL (0.1-1.2); Monocytes Percent Auto 8.6 % (2-11); Neutrophils Absolute Auto 2.8 x10*3/uL (2.0-8.3); Neutrophils Percent Auto 55.6 % (45-73); Platelet Count 126 X10*3/uL (160-400); Red Blood Count 3.94 X10*6/uL (4.20-5.50); Red Cell Distribution Width 13.2 % (11.0-16.0); White Blood Count 5.1 X10*3/uL (4.8-10.8)
[2021-08-02 07:42] LABS: Glucose, Whole Blood 81 mg/dL (60-115)
[2021-08-02 07:55] LABS: Alanine Aminotransferase 16 U/L (0-31); Albumin Level 3.7 g/dL (3.5-5.0); Alkaline Phosphatase 72 U/L (39-117); Anion Gap 9 (12-20); Aspartate Amino Transferase 13 U/L (5-31); Bilirubin Total 0.4 mg/dL (0.0-1.0); Blood Urea Nitrogen 15 mg/dL (9-16); Calcium 9.4 mg/dL (8.4-10.2); Carbon Dioxide 28 mmol/L (22-29); Chloride 109 mmol/L (96-108); Creatinine Clr Calc Pharmacy 63.2; Estimated Glomerular Filt Rate > 60; Glucose Fasting 96 mg/dL (60-99); Potassium 3.8 mmol/L (3.3-5.1); Sodium 142 mmol/L (135-145); Total Protein 6.5 g/dL (6.5-8.0)
--- NOTE | 2021-08-02 08:04 | P.CDIC_ITS ---
CDI Concurrent Query Documentation Clarification: PHYSICIAN'S DOCUMENTATION REQUEST Date of Query: 08/02/21 0805 Patient Name: Annette Campa Admit Date: 08/01/21 Dear Doctor, A review of the medical record indicates additional documentation may be needed. Please review below and update the documentation accordingly. Risk Factors/Clinical Indicators/Treatments left leg red, hot, tender failed outpatient oral antibiotic treatment Per H&P: Cellulitis left leg PMH: Diabetes Mellitus Please clarify the relationship between these conditions: * Yes, Cellulitis left leg is related to / associated with / due to Diabetes Mellitus * No, Cellulitis left leg is not related to / associated with / due to Diabetes Mellitus * Unable to determine Use of terms such as suspected, likely, concern for, or probable (associated with a specific diagnosis that is being evaluated, monitored, or treated as if it exists) are acceptable and can be coded in the inpatient setting, when documented at the time of discharge. Thank you, Melody Weiss RN Extension: [phone] Please use your independent medical judgment in providing your response. THIS QUERY IS PART OF THE PERMANENT MEDICAL RECORD Provider Response: Other Other Diagnosis: Unable to determine if cellulitis related to diabetes; cellulitis is worsened in the backdrop of diabetes
[2021-08-02] MEDS: amLODIPine Besylate 5 MG TABLET PO (10:13)
[2021-08-02] MEDS: lisinopriL 40 MG TABLET PO (10:13)
[2021-08-02] MEDS: Omeprazole 20 MG CAPSULE.DR PO ×2 (10:13→22:11)
[2021-08-02] MEDS: Cholecalciferol (Vitamin D3) 25 MCG TABLET 50 MCG PO (10:13)
[2021-08-02 10:18] VITALS: BP 109/61; PULSE 96; RESP 16; O2SAT 98
[2021-08-02 13:53] LABS: Glucose, Whole Blood 95 mg/dL (60-115)
[2021-08-02 15:00] VITALS: BP 143/62; PULSE 100; RESP 16; TEMP 36.2; O2SAT 97
--- NOTE | 2021-08-02 15:22 | P.PNIM_ITS ---
Subjective Subjective Date of Service: 08/02/21 Interval History: All information via cell tower climber; states leg feels better today no other acute issues Review of Systems Denies chest pain Denies shortness Physical Exam Vital Signs: Vital Signs: Last Vital Signs Temp 97.2 F 08/02/21 15:00 Pulse 100 08/02/21 15:00 Resp 16 08/02/21 15:00 BP 143/62 H 08/02/21 15:00 Pulse Ox 97 08/02/21 15:00 BMI result Body Mass Index 28.1 Const: Other: No acute distress General: cooperative HENMT: Head: Yes normal to inspection Resp: Other: Clear to auscultation bilaterally no rales rhonchi wheezes Effort & Inspection: normal respiratory effort Cardio: Other: No S4; positive S1-S2; no S3 murmurs or gallops Rate: regular rate Rhythm: regular rhythm GI: Palpation (GI): Soft to palpation and nontender Skin: Other: Mild erythema medial aspect tibial ridge left lower extremity improved since yesterday Extrem: Other: reddened left leg midthigh at site of bruise Objective Data Active Medications Acetaminophen (Acetaminophen 325 Mg Tablet) 650 mg PO Q6H PRN PRN Reason: Pain, Mild (Pain Scale 1-3) Amlodipine Besylate (Amlodipine Besylate 5 Mg Tablet) 5 mg PO DAILY [facility]; Protocol Last Admin: 08/02/21 10:13 Dose: 5 mg Documented by: JEZ Atorvastatin Calcium (Atorvastatin Calcium 80 Mg Tablet) 80 mg PO BEDTIME [facility] Last Admin: 08/01/21 21:06 Dose: 80 mg Documented by: ANGIE Dextrose (Dextrose 50 % 25 Gm/50 Ml Vial) 25 gm IVPUSH Q15M PRN; Protocol PRN Reason: per Hypoglycemia Standing Ord. Glucose (Glucose Gel 15 Gm Gel..Gram.) 15 gm PO Q15M PRN; Protocol PRN Reason: per Hypoglycemia Standing Ord. Heparin Sodium (Porcine) (Heparin Sodium,Porcine 5,000 Unit/Ml Vial) 5,000 unit SUBCUT Q8H [facility] Last Admin: 08/02/21 15:13 Dose: 5,000 unit Documented by: JEZ Vancomycin HCl 750 mg/ Sodium (Chloride) 265 mls @ 265 mls/hr IV Q12H [facility] Last Admin: 08/02/21 15:13 Dose: 265 mls/hr Documented by: JEZ Insulin Glargine (Insulin Glargine,Hum.Rec.Anlog 100 Unit/Ml 10 Ml Vial) 10 unit SUBCUT BEDTIME [facility] Last Admin: 08/01/21 21:00 Dose: Not Given Documented by: ANGIE Non-Admin Reason: Physician Approved Insulin Human Lispro (Insulin Lispro 100 Unit/Ml 3 Ml Vial) 0 - 10 unit SUBCUT QIDACHS [facility]; Protocol Last Admin: 08/02/21 14:00 Dose: Not Given Documented by: JEZ Non-Admin Reason: No Insulin Coverage Lisinopril (Lisinopril 40 Mg Tablet) 40 mg PO DAILY [facility]; Protocol Last Admin: 08/02/21 10:13 Dose: 40 mg Documented by: JEZ Melatonin (Melatonin 3 Mg Tablet) 6 mg PO BEDTIME PRN PRN Reason: Insomnia Omeprazole (Omeprazole 20 Mg Capsule.Dr) 20 mg PO BID [facility] Last Admin: 08/02/21 10:13 Dose: 20 mg Documented by: JEZ Pharmacy Consult (Consult Rx Vancomycin Dosing) 1 each MISCELLANE DAILY PRN PRN Reason: Consult order Pharmacy Consult (Consult Rx Vancomycin Dosing) 1 each MISCELLANE DAILY PRN PRN Reason: Consult order Senna (Sennosides 8.6 Mg Tablet) 17.2 mg PO BEDTIME PRN PRN Reason: Constipation Sodium Chloride (0.9 % Sodium Chloride Flush 3 Ml Syringe) [facility] Last Admin: 08/02/21 15:19 Dose: 3 ml Documented by: JEZ Sodium Chloride (0.9 % Sodium Chloride Flush 3 Ml Syringe) 3 ml IVFLUSH [facility] Last Admin: 08/02/21 15:19 Dose: 3 ml Documented by: JEZ Vitamin D (Cholecalciferol (Vitamin D3) 25 Mcg Tablet) 50 mcg PO DAILY [facility] Last Admin: 08/02/21 10:13 Dose: 50 mcg Documented by: JEZ Labs CBC & Chem 7: 08/02/21 07:12 08/02/21 07:12 Labs: Laboratory Results - last 24 hr 08/01/21 08/01/21 08/01/21 16:30 18:29 20:44 MCV MCH MCHC RDW Plt Count MPV Immature Gran % (Auto) Neut % (Auto) Lymph % (Auto) [place] % (Auto) Eos % (Auto) Baso % (Auto) Lymph # (Auto) [place] # (Auto) Eos # (Auto) Baso # (Auto) Abs Immat Gran (auto) Absolute Neuts (auto) Absolute Nucleated RBC Nucleated RBC % (auto) Anion Gap Estim Creat Clear Calc Estimated GFR POC Glucose 123 H 107 135 H Fasting Glucose Calcium Total Bilirubin AST ALT Alkaline Phosphatase Total Protein Albumin 08/02/21 08/02/21 08/02/21 07:12 07:12 07:23 MCV 80.2 MCH 25.4 L MCHC 31.6 RDW 13.2 Plt Count 126 L MPV 11.5 Immature Gran % (Auto) 0.2 Neut % (Auto) 55.6 Lymph % (Auto) 32.7 [place] % (Auto) 8.6 Eos % (Auto) 2.7 Baso % (Auto) 0.2 Lymph # (Auto) 1.7 [place] # (Auto) 0.4 Eos # (Auto) 0.1 Baso # (Auto) 0.0 Abs Immat Gran (auto) 0.01 Absolute Neuts (auto) 2.8 Absolute Nucleated RBC 0.000 Nucleated RBC % (auto) 0.0 Anion Gap 9 L Estim Creat Clear Calc 63.2 Estimated GFR > 60 POC Glucose 81 Fasting Glucose 96 Calcium 9.4 Total Bilirubin 0.4 AST 13 ALT 16 Alkaline Phosphatase 72 Total Protein 6.5 D Albumin 3.7 08/02/21 13:48 MCV MCH MCHC RDW Plt Count MPV Immature Gran % (Auto) Neut % (Auto) Lymph % (Auto) [place] % (Auto) Eos % (Auto) Baso % (Auto) Lymph # (Auto) [place] # (Auto) Eos # (Auto) Baso # (Auto) Abs Immat Gran (auto) Absolute Neuts (auto) Absolute Nucleated RBC Nucleated RBC % (auto) Anion Gap Estim Creat Clear Calc Estimated GFR POC Glucose 95 Fasting Glucose Calcium Total Bilirubin AST ALT Alkaline Phosphatase Total Protein Albumin Microbiology Microbiology Results: Microbiology 08/01/21 03:12 Blood Culture - Preliminary Blood - Venous No growth after 24 hours. 08/01/21 03:12 Blood Culture - Preliminary Blood - Venous No growth after 24 hours. 07/31/21 22:44 Blood Culture - Preliminary Blood - Venous No growth after 24 hours. 07/31/21 22:44 Blood Culture - Preliminary Blood - Venous No growth after 24 hours. Assessment and Plan (1) Cellulitis of left leg: Status: Acute (2) Diabetes type 2, uncontrolled: Status: Acute Assessment and Plan: 66-year-old female with a past medical history of hypertension, hyperlipidemia, diabetes, diabetic nephropathy, diabetic polyneuropathy, GERD, rhinitis pigment is of both eyes, vitamin-D deficiency, obesity; presented to the hospital with a chief complaint of left leg pain. Noted to have left leg cellulitis. Failed outpatient antibiotics. Admitted for further management. 1.Left leg cellulitis: As per ID, continue vancomycin; discharged on 10 days of oral doxycycline 2.DMII: Continue with outpatient therapies and adjust as indicated History of hypertension / hyperlipidemia: Continue home medications. DVT prophylaxis: Subcu heparin Code status: Full code Quality Stroke Does the patient have a stroke diagnosis?: No VTE Prior VTE?: No VTE Risk Level:: Medical - low VTE Device Contraindication: Treatment Not Indicated VTE Drug Contraindication: N/A - Med Ordered
[2021-08-02 15:24] LABS: Vancomycin Trough 15.6 mcg/mL (10.0-20.0)
--- NOTE | 2021-08-02 16:28 | HE.PHANOTE ---
VANCOMYCIN DOSING BASED ON TROUGH TODAY OF 15.6 DOSE IS STAYING AT [id number]. NEXT TROUGH ON 08/04 @ 0300
[2021-08-02 17:59] LABS: Glucose, Whole Blood 122 mg/dL (60-115)
[2021-08-02 21:16] LABS: Glucose, Whole Blood 118 mg/dL (60-115)
[2021-08-02 21:21] VITALS: BP 146/79; PULSE 98; RESP 18; TEMP 36.4; O2SAT 99
[2021-08-02] MEDS: Melatonin 3 MG TABLET 6 MG PO (22:09)
[2021-08-02] MEDS: Atorvastatin Calcium 80 MG TABLET PO (22:09)
[2021-08-03 01:05] VITALS: BP 138/74; PULSE 92; RESP 18; TEMP 36.2; O2SAT 97
[2021-08-03] MEDS: vancomycin HCL 750 MG in 0.9 % Sodium Chloride 250 ML 265 MG IV (04:00)
[2021-08-03 06:10] LABS: MANUAL DIFF FLAG NO
--- NOTE | 2021-08-03 06:10 | PC.NURSE ---
[id number] shift; patient alert and oriented, Hungarian speaking. Patient offered no complaints overnight, no complaints of pain or discomfort, vss. Patient ambulated to bathroom multiple times with assistance/guidance, steady gait. Left lower leg has scabbed areas, slightly reddened, warm to touch. Administered antibiotic per emar.
[2021-08-03 06:21] LABS: Basophils Percent Auto 0.4 % (0-2); Eosinophils Absolute Auto 0.1 X10*3/uL (0.0-0.4); Eosinophils Percent Auto 2.4 % (0-4); Hematocrit 33.7 % (37.0-47.0); Hemoglobin 10.6 g/dl (12.0-16.0); Imm Gran Abs Auto 0.01 X10*3/uL (0.00-0.03); Imm Gran Pct Auto 0.2 % (0.0-0.4); Lymphocytes Absolute Auto 1.2 X10*3/uL (1.2-4.9); Lymphocytes Percent Auto 25.3 % (20-40); Mean Corpuscular HGB Conc 31.5 g/dl (31.0-35.0); Mean Corpuscular Hemoglobin 25.5 pg (27.0-33.0); Mean Platelet Volume 11.9 fL (9.4-12.3); Monocytes Absolute Auto 0.4 X10*3/uL (0.1-1.2); Monocytes Percent Auto 8.6 % (2-11); Neutrophils Absolute Auto 3.1 x10*3/uL (2.0-8.3); Neutrophils Percent Auto 63.1 % (45-73); Platelet Count 141 X10*3/uL (160-400); Red Blood Count 4.16 X10*6/uL (4.20-5.50); Red Cell Distribution Width 12.9 % (11.0-16.0); White Blood Count 4.9 X10*3/uL (4.8-10.8)
[2021-08-03 06:40] LABS: Alanine Aminotransferase 15 U/L (0-31); Albumin Level 3.9 g/dL (3.5-5.0); Alkaline Phosphatase 75 U/L (39-117); Anion Gap 12 (12-20); Aspartate Amino Transferase 14 U/L (5-31); Bilirubin Total 0.3 mg/dL (0.0-1.0); Blood Urea Nitrogen 11 mg/dL (9-16); Calcium 9.6 mg/dL (8.4-10.2); Carbon Dioxide 26 mmol/L (22-29); Chloride 108 mmol/L (96-108); Creatinine Clr Calc Pharmacy 69.4; Estimated Glomerular Filt Rate > 60; Glucose Fasting 112 mg/dL (60-99); Potassium 3.9 mmol/L (3.3-5.1); Sodium 142 mmol/L (135-145)
[2021-08-03] MEDS: Cholecalciferol (Vitamin D3) 25 MCG TABLET 50 MCG PO (08:16)
[2021-08-03 08:17] LABS: Glucose, Whole Blood 130 mg/dL (60-115)
[2021-08-03] MEDS: 0.9 % Sodium Chloride Flush 3 ML SYRINGE IVFLUSH (08:17)
[2021-08-03] MEDS: amLODIPine Besylate 5 MG TABLET PO (08:17)
[2021-08-03] MEDS: Heparin Sodium,Porcine 5,000 UNIT/ML VIAL 5000 UNIT SUBCUT (08:17)
[2021-08-03] MEDS: lisinopriL 40 MG TABLET PO (08:17)
[2021-08-03] MEDS: Omeprazole 20 MG CAPSULE.DR PO (08:17)
[2021-08-03 08:20] VITALS: BP 143/73; PULSE 102; RESP 16; O2SAT 99
--- NOTE | 2021-08-03 08:23 | PC.NURSE ---
Pt A&Ox3, no complaints of pain at this time. Assisted to theBR. INterpertor Josephine used to discuss POC, questionable DC for today. LCA, VS as charted, POC 130, breakfast provided. Will continue to monitor.
--- NOTE | 2021-08-03 10:19 | PC.NURSE ---
Pt OOB to BR with stand by assistance. present, plan for DC. Awaiting further orders. Will continue to monitor.
--- NOTE | 2021-08-03 12:51 | MHC.CM.PN ---
Received notification that patient will be discharged home without services today. Anticipate patient's family will transport her home. Continue to monitor for d/c needs.
--- NOTE | 2021-08-03 12:52 | PM.DS ---
DS: Providers Provider Date of Service: 08/03/21 Date of admission: 08/01/21 05:44 Date of discharge: 08/03/21 Primary care physician: Anabela Thompson MD Consults: 08/01/21 03:35 Consult to Infectious Diseases Routine Consulting Provider: Theresa Garcia Reason for consultation: cellulitis DS: Diagnosis Discharge Diagnosis (1) Cellulitis of left leg: Status: Acute (2) Diabetes type 2, uncontrolled: Status: Acute DS: Summary Hospital Course Hospital Course: 66-year-old female past medical history significant for hypertension hyperlipidemia diabetes GERD and blindness presents with a chief complaint of left lower leg pain. She reported there leg has been painful and swollen for about 10 days. Seen at [facility] and noted tab localized cellulitis was given cephalexin and sent home to follow-up. Patient continued to take cephalexin as ordered; leg continued to worsen. She was admitted for failed outpatient therapy. She was admitted to the hospital given IV vancomycin/Zosyn. Ultrasound of the left lower extremity failed to demonstrated DVT. She was seen in consultation by Infectious Disease who recommended stopping the Zosyn and complaining 24 hours more of vancomycin with discharge home on doxycycline. This a.m. she is markedly improved and will be discharged home on course oral doxycycline Time Spent with Patient Time attestation: Total time spent providing and/or coordinating discharge services: Discharge coordination time: Greater than 30 minutes Quality: Stroke Does the patient have a stroke diagnosis?: No Physical Exam Vital Signs: Vital Signs: Last Vital Signs Temp 97.2 F 08/03/21 01:05 Pulse 102 H 08/03/21 08:20 Resp 16 08/03/21 08:20 BP 143/73 H 08/03/21 08:20 Pulse Ox 99 08/03/21 08:20 BMI result Body Mass Index 28.1 Const: Other: No acute distress Resp: Other: Clear to auscultation bilaterally no rales rhonchi wheezes Cardio: Other: No S4; positive S1-S2; no S3 murmurs or gallops Skin: Other: Mild erythema medial aspect tibial ridge left lower extremity improved since yesterday Extrem: Other: Markedly improved erythema left abebe DS: Data Data Completed and Pending Labs on day of discharge: Laboratory Results - last 24 hr 08/02/21 08/02/21 08/02/21 13:48 14:36 17:52 WBC RBC Hgb Hct MCV MCH MCHC RDW Plt Count MPV Immature Gran % (Auto) Neut % (Auto) Lymph % (Auto) [place] % (Auto) Eos % (Auto) Baso % (Auto) Lymph # (Auto) [place] # (Auto) Eos # (Auto) Baso # (Auto) Abs Immat Gran (auto) Absolute Neuts (auto) Absolute Nucleated RBC Nucleated RBC % (auto) Sodium Potassium Chloride Carbon Dioxide Anion Gap BUN Creatinine Estim Creat Clear Calc Estimated GFR POC Glucose 95 122 H Fasting Glucose Calcium Total Bilirubin AST ALT Alkaline Phosphatase Total Protein Albumin Vancomycin Trough 15.6 08/02/21 08/03/21 08/03/21 21:00 05:36 05:36 WBC 4.9 RBC 4.16 L Hgb 10.6 L Hct 33.7 L MCV 81.0 MCH 25.5 L MCHC 31.5 RDW 12.9 Plt Count 141 L MPV 11.9 Immature Gran % (Auto) 0.2 Neut % (Auto) 63.1 Lymph % (Auto) 25.3 [place] % (Auto) 8.6 Eos % (Auto) 2.4 Baso % (Auto) 0.4 Lymph # (Auto) 1.2 [place] # (Auto) 0.4 Eos # (Auto) 0.1 Baso # (Auto) 0.0 Abs Immat Gran (auto) 0.01 Absolute Neuts (auto) 3.1 Absolute Nucleated RBC 0.000 Nucleated RBC % (auto) 0.0 Sodium 142 Potassium 3.9 Chloride 108 Carbon Dioxide 26 Anion Gap 12 BUN 11 Creatinine 0.72 Estim Creat Clear Calc 69.4 Estimated GFR > 60 POC Glucose 118 H Fasting Glucose 112 H Calcium 9.6 Total Bilirubin 0.3 AST 14 ALT 15 Alkaline Phosphatase 75 Total Protein 7.0 Albumin 3.9 Vancomycin Trough 08/03/21 08:11 WBC RBC Hgb Hct MCV MCH MCHC RDW Plt Count MPV Immature Gran % (Auto) Neut % (Auto) Lymph % (Auto) [place] % (Auto) Eos % (Auto) Baso % (Auto) Lymph # (Auto) [place] # (Auto) Eos # (Auto) Baso # (Auto) Abs Immat Gran (auto) Absolute Neuts (auto) Absolute Nucleated RBC Nucleated RBC % (auto) Sodium Potassium Chloride Carbon Dioxide Anion Gap BUN Creatinine Estim Creat Clear Calc Estimated GFR POC Glucose 130 H Fasting Glucose Calcium Total Bilirubin AST ALT Alkaline Phosphatase Total Protein Albumin Vancomycin Trough Preliminary micro results at discharge 08/01/21 03:12 Blood Culture - Preliminary Blood - Venous No growth after 48 hours. 08/01/21 03:12 Blood Culture - Preliminary Blood - Venous No growth after 48 hours. 07/31/21 22:44 Blood Culture - Preliminary Blood - Venous No growth after 48 hours. 07/31/21 22:44 Blood Culture - Preliminary Blood - Venous No growth after 48 hours. Discharge Plan Discharge Patient Disposition: Home, Self-Care Discharge Diagnosis: Lower extremity cellulitis Referrals: Anabela Jin MD [Primary Care Provider] - 1 Week Discharge Medications: New doxycycline hyclate 100 mg capsule 100 mg PO BID Qty: 20 RF: 0 Continued (DME) FreeStyle Lite Strips Strip See Rx Instructions .MEDSUPPLY Qty: 100 RF: 6 (DME) lancets [FreeStyle Lancets] 28 gauge misc See Rx Instructions .MEDSUPPLY Qty: 100 RF: 7 (DME) 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 meter [FreeStyle Lite Meter] Kit See Rx Instructions miscellaneous .MEDSUPPLY Qty: 1 RF: 0 atorvastatin 80 mg tablet 80 mg PO BEDTIME 90 Days Qty: 90 RF: 1 omeprazole 20 mg capsule,delayed release(DR/EC) 1 cap PO BID RF: 0 lisinopril 40 mg tablet 1 tab PO DAILY RF: 0 naproxen 500 mg tablet 1 tab PO Q12H PRN (Reason: pain) RF: 0 omega-3 fatty acids-fish oil 300-1,000 mg capsule 1 cap PO BID RF: 0 cholecalciferol (vitamin D3) 50 mcg (2,000 unit) capsule 1 cap PO DAILY RF: 0 Jardiance 25 mg tablet 1 tab PO QAM RF: 0 Trulicity 1.5 mg/0.5 mL pen injector 1.5 mg subcut MO RF: 0 mirtazapine 45 mg tablet 1 tab PO BEDTIME RF: 0 (DME) wheelchair See Rx Instructions .Route .MEDSUPPLY Qty: 1 RF: 0 amlodipine 5 mg tablet 5 mg PO DAILY RF: 0 Discontinued cephalexin 500 mg capsule 1 cap PO QID RF: 0 Discharge Orders: Discharge Order (Routine); Ordered 08/03/21 Ordered By: Titus Bryan Diet: advance to usual diet Activity on Discharge: As tolerated Stand Alone Forms: Patient Portal Discharge page Care Plan Goals: Complete course of doxycycline as ordered. Follow-up with your PCP Health Concerns: Keep wound covered when out of home Plan of Treatment: Follow-up with PCP in 2 weeks Assessment: As above
[2021-08-03 18:16] LABS: Glucose, Whole Blood 121 mg/dL (60-115)
== END 2021-08-03 13:06 | disposition home or self-care (01) | DRG 603 ==
LOC: HO.ED 08-01 03:01 → HO.EDOVER 08-01 06:24
PROVIDERS: Physician Assistant; Admitting Provider Hospitalist; Emergency Provider Emergency Medicine; PCP Internal Medicine; Visit Provider Hospitalist
DX: L03.116 Cellulitis of left lower limb (principal); F03.90 Unspecified dementia, unspecified severity, without behavioral disturbance, psychotic disturbance, mood disturbance, and anxiety; E66.9 Obesity, unspecified; Z68.28 Body mass index [BMI] 28.0-28.9, adult; E11.42 Type 2 diabetes mellitus with diabetic polyneuropathy; E78.5 Hyperlipidemia, unspecified; K21.9 Gastro-esophageal reflux disease without esophagitis; Z20.822 Contact with and (suspected) exposure to COVID-19; Z79.1 Long term (current) use of non-steroidal anti-inflammatories (NSAID); Z79.899 Other long term (current) drug therapy
CPT/HCPCS: 36415; 76882; 80048; 80053; 80202; 82947; 83605; 85025; 85652; 86140; 87040; 87635; 93970; 99285; J2543; J3370

== ENCOUNTER 2021-10-30 09:55 | Outpatient (REF) | payer MEDICARE, MEDICAID, SELFPAY ==
[2021-10-30 12:38] LABS: Alanine Aminotransferase 11 U/L (0-31); Albumin Level 4.5 g/dL (3.5-5.0); Alkaline Phosphatase 73 U/L (39-117); Anion Gap 12 (12-20); Aspartate Amino Transferase 12 U/L (5-31); Bilirubin Total 0.4 mg/dL (0.0-1.0); Blood Urea Nitrogen 15 mg/dL (9-16); Calcium 10.3 mg/dL (8.4-10.2); Carbon Dioxide 27 mmol/L (22-29); Chloride 106 mmol/L (96-108); Cholesterol 295 mg/dL; Estimated Glomerular Filt Rate > 60; Glucose Fasting 113 mg/dL (60-99); HDL Cholesterol 37 mg/dL; Potassium 4.4 mmol/L (3.3-5.1); Sodium 141 mmol/L (135-145); Total Protein 8.1 g/dL (6.5-8.0); Triglycerides 534 mg/dL
[2021-10-30 12:46] LABS: Vitamin D 25-OH Total 48.2 ng/mL (>30)
[2021-10-30 16:31] LABS: Creatinine Urine 135.52 mg/dL
[2021-11-01 02:01] LABS: LDL Cholesterol Direct 117 mg/dL (<100)
== END 2021-10-30 09:56 | disposition home or self-care (01) ==
LOC: HO.LAB 09:55
PROVIDERS: PCP Internal Medicine; Visit Provider Nurse Practitioner Gerontology
DX: E11.21 Type 2 diabetes mellitus with diabetic nephropathy (principal); E11.42 Type 2 diabetes mellitus with diabetic polyneuropathy; I10 Essential (primary) hypertension; E78.5 Hyperlipidemia, unspecified; E55.9 Vitamin D deficiency, unspecified; E66.9 Obesity, unspecified
CPT/HCPCS: 36415; 80053; 80061; 82043; 82306; 82947; 83036; 83721; 99212

== ENCOUNTER 2021-11-12 10:15 | Emergency (ER) | payer MEDICARE, MEDICAID, SELFPAY ==
[2021-11-12 11:23] VITALS: BP 132/79; PULSE 105; RESP 16; TEMP 36.6; O2SAT 98; BMI 29.5
--- NOTE | 2021-11-12 12:09 | ED_ITS ---
HPI - Allergic Reaction General Chief complaint: Allergic Reaction Stated complaint: Swollen lips/diabetic Time Seen by Provider: 11/12/21 11:53 Source: patient and family (Daughter at bedside) Mode of arrival: ambulatory Limitations: language barrier (Latvian-speaking) History of Present Illness HPI narrative: 66-year-old female with a past medical history of dementia, diabetes type 2, diabetic neuropathy, diabetic polyneuropathy, dyslipidemia, GERD, hypertension, obesity, retinitis pigmentosa of of both eyes and vitamin-D deficiency presenting to the ED with complaints of lower lip swelling for the past 3 days. She reports that she has been on lisinopril for years. She denies any other new substances. She reports that she last took her lisinopril yesterday morning. She denies any trouble swallowing or breathing, chest pain or shortness of breath, dyspnea on exertion, orthopnea, palpitations, nausea/vomiting, drooling, change in voice, abdominal pain or any other symptoms complaints or concerns at this time. MD complaint: allergic reaction and facial swelling (Lower lip) Onset (ago): day(s) (3) Exposure: medication (Possibly to lisinopril) Symptoms: lip swelling Severity: moderate Treatment prior to arrival: none Previous Allergic Reaction History: none Related Data Home Medications Medication Instructions Recorded Confirmed amlodipine 5 mg tablet 5 mg PO DAILY tab 08/23/20 11/01/21 lisinopril 40 mg tablet 1 tab PO DAILY 08/01/21 11/01/21 mirtazapine 45 mg tablet 1 tab PO BEDTIME 08/01/21 11/01/21 naproxen 500 mg tablet 1 tab PO Q12H PRN 08/01/21 11/01/21 Previous Rx's Medication Instructions Recorded blood sugar diagnostic (FreeStyle #100 ea 11/15/20 Lite Strips) 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 meter (FreeStyle #1 ea 11/15/20 Lite Meter) lancets 28 gauge (FreeStyle #100 ea 11/15/20 Lancets) wheelchair #1 ea 11/15/20 atorvastatin 80 mg tablet 80 mg PO BEDTIME 90 Days #90 tab 06/26/21 dulaglutide 1.5 mg/0.5 mL 1.5 mg (0.5 mL) SUBCUT QWEEK #2 ml 08/08/21 subcutaneous pen injector ([facility]) adhesive tape (Band-Aid Paper Tape) #1 ea 08/09/21 gauze bandage 4 X 4 (Band-Aid #1200 ea 08/09/21 Gauze Pads) empagliflozin 25 mg tablet 25 mg PO QAM #90 tab 09/30/21 (Jardiance) omega-3 fatty acids-fish oil 300 1 cap PO BID #60 cap 09/30/21 mg-1,000 mg capsule omeprazole 20 mg capsule,delayed 20 mg PO BID 90 Days #180 cap 10/17/21 release cholecalciferol (vitamin D3) 25 25 mcg PO DAILY #90 cap 10/30/21 mcg (1,000 unit) capsule Allergies Allergy/AdvReac Type Severity Reaction Status Date / Time metformin Allergy Intermediate Intolerance, Verified 11/01/21 11:15 chest pain, high BP, diarrhea pantoprazole Allergy Intermediate rash Verified 11/01/21 11:15 pork derived (porcine) Allergy Intermediate SEVERE N/V Verified 11/01/21 11:15 [PORK DERIVED (PORCINE)] ABD PAIN quetiapine Allergy Intermediate chest pain Verified 11/01/21 11:15 milk Allergy Intermediate gas/stomach Uncoded 10/30/21 10:46 pain orange juice Allergy Intermediate gerd Uncoded 10/30/21 10:46 pork and shellfish Allergy Intermediate rash Uncoded 10/30/21 10:46 SEAFOOD Allergy Intermediate RASH, ITCHY Uncoded 10/30/21 10:46 [place]ia Allergy Intermediate diarrhea Uncoded 10/30/21 10:46 tuna Allergy Intermediate itchiness Uncoded 10/30/21 10:46 Review of Systems Review of Systems: Constitutional : No Weight loss, No Fever, No Chills, No Night Sweats, No Fatigue, No Malaise ENT/Mouth : + lower lip swelling, No Hearing loss, No Ear Pain, No Nasal Congestion, No Sinus Pain, No Hoarseness, No sore throat, No Rhinorrhea, No Swallowing Difficulty Eyes: No Eye Pain, No Swelling, No Redness, No Foreign Body, No Discharge, No Vision Changes Cardiovascular : No Chest Pain, No SOB, No Dyspnea on Exertion, No Orthopnea, No Edema, No Palpitations Respiratory : No Cough, No Sputum, No Wheezing, No Smoke Exposure, No Dyspnea Gastrointestinal : No Nausea, No Vomiting, No Diarrhea, No Constipation, No abdominal Pain, No Hematochezia, No Melena Genitourinary : no irregular bleeding, No Dysuria, No Urinary Frequency, No Hem aturia, No Urinary Incontinence, No Urgency, No Flank Pain, No Urinary Flow Changes, No Hesitancy Musculoskeletal : No joint pain, No Myalgias, No Joint Swelling Skin : No Skin Lesions, No rash Neuro : No Weakness, No Numbness, No Paresthesias, No Loss of Consciousness, No Dizziness, No Headache Psych : No Anxiety/Panic, No Depression, No SI/HI/AH/VH, No Social Issues, Heme/Lymph: No Bruising, No Bleeding,No Lymphadenopathy Endocrine : No Polyuria, No Polydipsia, No Temperature Intolerance Yes all other systems are reviewed and are negative [facility] Past Medical History Attestation statement: The following information was validated with the patient. Medical History Dementia Diabetes type 2, uncontrolled Diabetic nephropathy associated with type 2 diabetes mellitus Diabetic polyneuropathy associated with type 2 diabetes mellitus Dyslipidemia GERD (gastroesophageal reflux disease) Hypertension Obesity (BMI 30-39.9) Retinitis pigmentosa of both eyes Vitamin D deficiency Surgical History Hx of cholecystectomy Hx of hernia repair Hx of tubal ligation Family History Family History Father No problems noted. Mother Heart disease HTN (hypertension) Sister Pre-diabetes Brother Leukemia Son In good health Daughter In good health Daughter In good health Social History Social History Household Members: Family Housing: Apartment Alcohol intake: never Patient Tobacco Use Status: Never used Tobacco e-Cigarette/Vaping Use: Never Used Second Hand Smoke Exposure: No Advance Directives: No Advance Directives Information Provided: No service: No Current occupational status: disabled Physical Exam ED Vital Signs: Vital Signs - 24 hr 11/12/21 11:23 11/12/21 13:43 Temperature 97.8 F Pulse Rate 105 H 94 Respiratory Rate 16 18 Blood Pressure 132/79 130/76 Pulse Oximetry 98 95 BMI result Body Mass Index 29.5 vital signs have been reviewed as normal and appeared to be correct. Blood pressure normal. Heart rate 105. Respiration rate normal. Temperature normal. Oxygen saturation normal. Appearance: Alert. Oriented X3. No acute distress. Head: Normal external exam. Normocephalic. Atraumatic. Eyes: PERRLA. EOMI. Conjunctiva and sclera normal. Eyelids normal. ENT: Patient with angioedema/swelling to lower lip. No swelling or angioedema noted to upper lip per anywhere else on the face. The oropharynx is within normal limits in uvula is midline not deviated. There is no tonsillar swelling or erythema or exudate noted. Moist mucous membranes. No lesions/ulcerations or masses noted on the tongue. Normal voice. No trismus noted. No drooling noted. No muffled voice noted. Neck: Normal inspection. Neck supple. FROM. No adenopathy. Thyroid Normal.No meningeal signs. No neck mass noted. No signs of trauma noted. CVS: Normal heart rate and rhythm. Heart sound normal. Pulses normal throughout. No murmurs/rales/gallops. Respiratory: No respiratory distress. Painless inspiration. Breath sounds normal. No wheezes/rales/rhonchi noted. Chest nontender. No accessory muscle usage noted or decreased air movement noted. Abdomen: Soft and nontender. Bowel sounds normal in all 4 quadrants. No distention noted. No organomegaly noted. No visible injury noted. Back: No CVA tenderness. Full range of motion noted. Nontender. No signs of trauma. Patient neuro intact bilaterally and distally on all 4 extremities. Patient's reflexes intact bilaterally and distally on all 4 extremities. No rashes/lesion/induration/fluctuance or signs of infection noted. Skin: Skin warm and dry. Normal skin color. Normal skin turgor. No rashes/lesions/lacerations noted. Extremities: Extremities exhibit normal range of motion and nontender. Neuro: Oriented X 3. No motor deficit. No sensory deficit. Reflexes normal. Normal steady gait. No focal neuro deficits noted. CN's II-XII intact bilaterally? Vascular: + radial pulses/+ 2 distal pedal pulses/+2 dorsalis pedis b/l. Normal cap refill. No cyanosis noted to upper extremity nails and lower extremity toes nails. Course Course Course Narrative: 12:15pm - IMP/Plan: Allergic rxn with angioedema to lower lip. Not sepsis/ infectious etiology. Patient well appearing in no acute distress, breathing easily without throat symptoms. Speaking full sentences, and handling secretions without difficulty. There is no obvious threat to airway. Lungs are CTA in all fried. Patient does have angioedema to lower lip otherwise no other signs of angioedema. No signs of stridor, airway compromise, anaphylaxis or anaphylactic shock. Not c/w SSSS/ TEN/ Eryth multiforme/ Rueda Johnsons. Given HPI and PE - Will provide 125 mg of IV Solu-Medrol, 50 mg of IV Benadryl and 20 mg of IV Pepcid with a L of IV fluids watch and observe. If patient continues to be symptom free with instructions to stop taking her lisinopril and follow-up with her PCP for new blood pressure prescription and to return if any new or worsening symptoms. Patient and daughter at bedside understand agree this plan. MDM - Allergic Reaction Medical Records Attestation: I reviewed the patient's medical records. Critical Care Time Critical Care Time Critical Care Time: Yes Total Critical Care Time: 60 Attestation: I personally attest to this time spent taking care of the patient Discharge Plan Discharge Clinical Impression: Allergic reaction caused by a drug, Angioedema of lips Patient Disposition: Home, Self-Care Instructions: Angioedema (ED), Allergy Testing (ED) Additional Instructions: Please no longer take the lisinopril you should contact your doctor tomorrow morning for new blood pressure medication. Por favor, ya no tome el lisinopril que debe ponerse en contacto con denson m?dico ma?rubén por la ma?rubén para un nuevo medicamento para la presi?n arterial. Prescriptions: No Action (DME) FreeStyle Lite Strips Strip See Rx Instructions .MEDSUPPLY Qty: 100 6RF Rx Instructions: 3 times a day (DME) lancets [FreeStyle Lancets] 28 gauge misc See Rx Instructions .MEDSUPPLY Qty: 100 7RF Rx Instructions: 3 times a day (DME) 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 meter [FreeStyle Lite Meter] Kit See Rx Instructions miscellaneous .MEDSUPPLY Qty: 1 0RF Rx Instructions: 3 times a day atorvastatin 80 mg tablet 80 mg PO BEDTIME 90 Days Qty: 90 1RF Trulicity 1.5 mg/0.5 mL pen injector 1.5 mg subcut QWEEK Qty: 2 6RF omega-3 fatty acids-fish oil 300-1,000 mg capsule 1 cap PO BID Qty: 60 7RF Jardiance 25 mg tablet 25 mg PO QAM Qty: 90 2RF omeprazole 20 mg capsule,delayed release(DR/EC) 20 mg PO BID 90 Days Qty: 180 1RF cholecalciferol (vitamin D3) 25 mcg (1,000 unit) capsule 25 mcg PO DAILY Qty: 90 3RF lisinopril 40 mg tablet 1 tab PO DAILY 0RF naproxen 500 mg tablet 1 tab PO Q12H PRN (Reason: pain) 0RF mirtazapine 45 mg tablet 1 tab PO BEDTIME 0RF (DME) wheelchair See Rx Instructions .Route .MEDSUPPLY Qty: 1 0RF Rx Instructions: As directed (DME) gauze bandage [Band-Aid Gauze Pads] 4 X 4 bandage See Rx Instructions .Route Qty: 1200 0RF Rx Instructions: As directed (DME) adhesive tape [Band-Aid Paper Tape] 1 X 10 -yard tape See Rx Instructions .Route Qty: 1 0RF Rx Instructions: As directed amlodipine 5 mg tablet 5 mg PO DAILY 0RF Referrals: Lalo Amado MD [Primary Care Provider] - Print Language: Latvian
[2021-11-12] MEDS: 0.9 % Sodium Chloride 1,000 ML 999 ML IVCONT (12:34)
[2021-11-12] MEDS: methylPREDNISolone Sod Succ 125 MG/2 ML VIAL IVPUSH (12:43)
[2021-11-12] MEDS: diphenhydrAMINE HCL 50 MG/ML VIAL IVPUSH (12:44)
[2021-11-12] MEDS: Famotidine/PF 20 MG/2 ML VIAL IVPUSH (12:44)
[2021-11-12 13:43] VITALS: BP 130/76; PULSE 94; RESP 18; O2SAT 95
== END 2021-11-12 15:24 | disposition home or self-care (01) ==
PROVIDERS: Emergency Provider Emergency Medicine; PCP Student in an Organized Health Care Education/Training Program
DX: T78.49XA Other allergy, initial encounter (principal); L50.0 Allergic urticaria; K13.0 Diseases of lips; E11.9 Type 2 diabetes mellitus without complications; R22.9 Localized swelling, mass and lump, unspecified; T46.4X5A Adverse effect of angiotensin-converting-enzyme inhibitors, initial encounter; Y92.9 Unspecified place or not applicable; Z79.899 Other long term (current) drug therapy; X58.XXXA Exposure to other specified factors, initial encounter
CPT/HCPCS: 96361; 96374; 96375; 99284; 99291; J1200; J2930

== ENCOUNTER 2021-12-07 12:57 | Outpatient (REF) | payer MEDICARE, MEDICAID, SELFPAY ==
--- NOTE | ~2021-12-07 | MM_ITS ---
EXAMINATION: MM SCREENING DIGITAL BREAST TOMOSYNTHESIS, BILATERAL CLINICAL INFORMATION: Screening. Asymptomatic. The lifetime risk of breast cancer based on the Tyrer-Cuzick Model is 4%. COMPARISON: Mammography: 06/05/2019, 11/21/2017, 11/07/2016 TECHNIQUE: Digital breast tomosynthesis is performed in both the craniocaudal and mediolateral oblique views along with computer-aided detection (CAD). Synthesized 2D images are generated from the tomosynthesis. Additional bilateral CC views are provided. FINDINGS: There are scattered areas of fibroglandular density (ACR BI-RADS breast composition Category b). There are no significant masses, abnormal calcifications, or other abnormalities. Probable intramammary node mid 3:00 left breast similar to prior studies. The axilla and skin contours are unremarkable. MM/MM tomosynthesis screening BI IMPRESSION: No mammographic evidence of malignancy. ASSESSMENT: BI-RADS 2: Benign RECOMMENDATION: Routine annual mammography screening. This patient's information was entered into a reminder system with a target due date for their next mammogram.
== END 2021-12-07 12:58 | disposition home or self-care (01) ==
LOC: HO.MAMMO 12:57
PROVIDERS: PCP Internal Medicine; Visit Provider Internal Medicine
DX: Z12.31 Encounter for screening mammogram for malignant neoplasm of breast (principal)
CPT/HCPCS: 77063; 77067

== ENCOUNTER 2022-03-25 11:30 | Outpatient (REF) | payer MEDICARE, MEDICAID, SELFPAY ==
[2022-03-25 11:48] LABS: MANUAL DIFF FLAG NO
[2022-03-25 12:16] LABS: Basophils Percent Auto 0.4 % (0-2); Eosinophils Absolute Auto 0.1 X10*3/uL (0.0-0.4); Eosinophils Percent Auto 2.8 % (0-4); Hematocrit 38.9 % (37.0-47.0); Hemoglobin 12.1 g/dl (12.0-16.0); Imm Gran Abs Auto 0.01 X10*3/uL (0.00-0.03); Imm Gran Pct Auto 0.2 % (0.0-0.4); Lymphocytes Absolute Auto 1.1 X10*3/uL (1.2-4.9); Lymphocytes Percent Auto 22.2 % (20-40); Mean Corpuscular HGB Conc 31.1 g/dl (31.0-35.0); Mean Corpuscular Hemoglobin 24.9 pg (27.0-33.0); Mean Platelet Volume 12.5 fL (9.4-12.3); Monocytes Absolute Auto 0.3 X10*3/uL (0.1-1.2); Monocytes Percent Auto 6.8 % (2-11); Neutrophils Absolute Auto 3.4 x10*3/uL (2.0-8.3); Neutrophils Percent Auto 67.6 % (45-73); Platelet Count 164 X10*3/uL (160-400); Red Blood Count 4.86 X10*6/uL (4.20-5.50)
[2022-03-25 12:41] LABS: Creatinine Urine 83.65 mg/dL; Microalbum/Creatinine Ratio Ur 115.9 ug/mg cr
[2022-03-25 12:44] LABS: Alanine Aminotransferase 12 U/L (0-31); Albumin Level 4.5 g/dL (3.5-5.0); Alkaline Phosphatase 87 U/L (39-117); Anion Gap 17 (12-20); Aspartate Amino Transferase 13 U/L (5-31); Bilirubin Total 0.5 mg/dL (0.0-1.0); Blood Urea Nitrogen 19 mg/dL (9-16); Calcium 9.9 mg/dL (8.4-10.2); Carbon Dioxide 26 mmol/L (22-29); Chloride 106 mmol/L (96-108); Cholesterol 187 mg/dL; Estimated Glomerular Filt Rate > 60; Glucose Fasting 111 mg/dL (60-99); HDL Cholesterol 48 mg/dL; Iron 45 mcg/dL (30-160); LDL Cholesterol Calculated 110 mg/dl; Percent Iron Saturation 13 % (15-50); Potassium 4.5 mmol/L (3.3-5.1); Sodium 144 mmol/L (135-145); Total Iron Binding Capacity 345 mcg/dL (228-428); Total Protein 8.1 g/dL (6.5-8.0); Triglycerides 149 mg/dL; Unsaturated Iron Binding 300 ug/dL
[2022-03-25 13:08] LABS: Vitamin D 25-OH Total 53.2 ng/mL (>30)
[2022-03-25 13:20] LABS: Folate 16.5 ng/mL (> or = 4.0); Vitamin B12 364 pg/mL (200-900)
== END 2022-03-25 11:31 | disposition home or self-care (01) ==
LOC: HO.LAB 11:30
PROVIDERS: PCP Internal Medicine; Visit Provider Internal Medicine
DX: E11.9 Type 2 diabetes mellitus without complications (principal); E55.9 Vitamin D deficiency, unspecified; E78.5 Hyperlipidemia, unspecified; D64.9 Anemia, unspecified
CPT/HCPCS: 36415; 80053; 80061; 82043; 82306; 82607; 82746; 83540; 85025

== ENCOUNTER 2022-08-05 07:51 | Outpatient (REF) | payer MEDICARE, MEDICAID, SELFPAY ==
--- NOTE | ~2022-08-05 | XR_ITS ---
EXAMINATION: XR SHOULDER, LEFT CLINICAL INFORMATION: Pain COMPARISON: None TECHNIQUE: AP external rotation, Grashey, scapular Y, and axillary views of the left shoulder. FINDINGS: There is mild reduction of left AC and glenohumeral joint space without any visible acute fracture, dislocation or subluxation. The soft tissues are normal. XR/XR shoulder LT min 2V IMPRESSION: Mild degenerative changes left A.C. joint and glenohumeral joint. No acute fracture or dislocation seen.
[2022-08-05 09:08] LABS: Alanine Aminotransferase 18 U/L (0-31); Albumin Level 4.5 g/dL (3.5-5.0); Alkaline Phosphatase 88 U/L (39-117); Anion Gap 13 (12-20); Aspartate Amino Transferase 14 U/L (5-31); Bilirubin Total 0.3 mg/dL (0.0-1.0); Blood Urea Nitrogen 19 mg/dL (9-16); Calcium 10.2 mg/dL (8.4-10.2); Carbon Dioxide 27 mmol/L (22-29); Chloride 108 mmol/L (96-108); Cholesterol 171 mg/dL; Estimated Glomerular Filt Rate > 60; Glucose Fasting 126 mg/dL (60-99); HDL Cholesterol 48 mg/dL; LDL Cholesterol Calculated 84 mg/dl; Potassium 4.3 mmol/L (3.3-5.1); Sodium 144 mmol/L (135-145); Total Protein 7.8 g/dL (6.5-8.0); Triglycerides 195 mg/dL
[2022-08-05 09:12] LABS: Vitamin D 25-OH Total 43.8 ng/mL (>30)
[2022-08-05 09:47] LABS: Creatinine Urine 95.07 mg/dL; Microalbum/Creatinine Ratio Ur 73.6 ug/mg cr
== END 2022-08-05 07:52 | disposition home or self-care (01) ==
LOC: HO.LAB 07:51
PROVIDERS: Visit Provider Internal Medicine
DX: M25.512 Pain in left shoulder (principal); E11.9 Type 2 diabetes mellitus without complications; E55.9 Vitamin D deficiency, unspecified; E78.5 Hyperlipidemia, unspecified
CPT/HCPCS: 36415; 73030; 80053; 80061; 82043; 82306

== ENCOUNTER 2022-09-12 19:31 | Emergency (ER) | payer MEDICARE, MEDICAID, SELFPAY ==
[2022-09-12 20:04] VITALS: BP 162/88; PULSE 93; RESP 18; TEMP 36.3; O2SAT 98; BMI 28.1
--- NOTE | 2022-09-12 20:06 | ED.SKABFB ---
HPI - Skin/Abscess/Foreign Bdy General Chief complaint: General Medical <ANTONIO Michel - Last Filed: 09/12/22 20:08> Stated complaint: back pain, diabetic <ANTONIO Michel - Last Filed: 09/12/22 20:08> Time Seen by Provider: 09/12/22 22:14 <ANTONIO Michel - Last Filed: 09/12/22 20:08> Source: patient and family <Tejas Ba MD - Last Filed: 09/13/22 00:57> Mode of arrival: ambulatory <Tejas Ba MD - Last Filed: 09/13/22 00:57> Limitations: no limitations <Tejas Ba MD - Last Filed: 09/13/22 00:57> History of Present Illness HPI narrative: Patient diabetic at small abscess on the back for last 2 weeks, was given doxycycline on 09/04 comes here for his swelling is there and small amount of drainage with pain <Tejas Ba MD - Last Filed: 09/13/22 00:57> Related Data Home medications: Home Medications Medication Instructions Recorded Confirmed mirtazapine 45 mg tablet 1 tab PO BEDTIME 08/01/21 09/04/22 Previous Rx's Medication Instructions Recorded 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 meter (ZanderStyle #1 11/15/20 Lite Meter kit) lancets 28 gauge (FreeStyle #100 ea 11/15/20 Lancets) wheelchair #1 ea 11/15/20 adhesive tape 1 X 10 yard #1 ea 08/09/21 (Band-Aid Paper Tape) gauze bandage 4 X 4 (Band-Aid #1,200 ea 08/09/21 Gauze Pads) diphenhydramine HCl 25 mg tablet 50 mg PO TID PRN allergic reaction 11/12/21 (Benadryl Allergy) #14 tabs dulaglutide 1.5 mg/0.5 mL 1.5 mg (0.5 mL) subcut QWEEK #2 mL 05/20/22 subcutaneous pen injector ([facility]) dicyclomine 20 mg tablet 20 mg PO QID 30 days #120 tabs 06/07/22 naproxen 500 mg tablet 500 mg PO Q12H PRN for pain 90 06/07/22 days #180 tabs blood sugar diagnostic (FreeStyle #100 ea 07/12/22 Lite Strips) cholecalciferol (vitamin D3) 25 25 mcg PO DAILY #90 caps 07/13/22 mcg (1,000 unit) capsule omeprazole 40 mg capsule,delayed 40 mg PO DAILY 90 days #90 caps 07/31/22 release personal wipes #50 ea 07/31/22 simethicone 180 mg capsule (Gas 180 mg PO BID PRN abdominal 07/31/22 Relief (simethicone)) distention 90 days #180 caps ezetimibe 10 mg tablet 10 mg PO DAILY 90 days #90 tabs 08/06/22 amlodipine 10 mg tablet 10 mg PO DAILY 90 days #90 tabs 09/02/22 atorvastatin 80 mg tablet 80 mg PO BEDTIME 90 days #90 tabs 09/02/22 doxycycline hyclate 100 mg capsule 100 mg PO BID 7 days #14 caps 09/04/22 empagliflozin 25 mg tablet 25 mg PO QAM #90 tabs 09/09/22 (Jardiance) omega-3 fatty acids-fish oil 300 1 cap PO BID #60 caps 09/09/22 mg-1,000 mg capsule adult diapers briefs #240 ea 09/12/22 cephalexin 500 mg capsule 500 mg PO QID 10 days #40 caps 09/12/22 doxycycline hyclate 100 mg tablet 100 mg PO BID #20 tabs 09/12/22 underpads 30 X 36 (Certainty #48 ea 09/12/22 Underpads) <ANTONIO Michel - Last Filed: 09/12/22 20:08> Allergies/Adverse reactions: Allergies Allergy/AdvReac Type Severity Reaction Status Date / Time metformin Allergy Intermediate Intolerance, Verified 09/12/22 20:04 chest pain, high BP, diarrhea pantoprazole Allergy Intermediate rash Verified 09/12/22 20:04 quetiapine Allergy Intermediate chest pain Verified 09/12/22 20:04 orange juice Allergy Intermediate gerd Uncoded 09/04/22 10:11 <ANTONIO Michel - Last Filed: 09/12/22 20:08> Review of Systems Review of Systems: Yes all other systems are reviewed and are negative <Tejas Ba MD - Last Filed: 09/13/22 00:57> [facility] Past Medical History Medical History: Medical History Dementia Diabetes type 2, uncontrolled Diabetic nephropathy associated with type 2 diabetes mellitus Diabetic polyneuropathy associated with type 2 diabetes mellitus Dyslipidemia GERD (gastroesophageal reflux disease) Hypertension Obesity (BMI 30-39.9) Retinitis pigmentosa of both eyes Vitamin D deficiency <ANTONIO Michel - Last Filed: 09/12/22 20:08> Surgical History: Surgical History Hx of cholecystectomy Hx of hernia repair Hx of tubal ligation <ANTONIO Michel - Last Filed: 09/12/22 20:08> Family History Family History: Family History Father No problems noted. Mother Heart disease HTN (hypertension) Sister Pre-diabetes Brother Leukemia Son In good health Daughter In good health Daughter In good health <ANTONIO Michel - Last Filed: 09/12/22 20:08> Social History Social History: Social History Household Members: Family Housing: Apartment Alcohol intake: never Patient Tobacco Use Status: Never used Tobacco e-Cigarette/Vaping Use: Never Used Second Hand Smoke Exposure: No Advance Directives: No Advance Directives Information Provided: No service: No Current occupational status: disabled Cognitive needs: No Hearing needs: No Vision needs: No <ANTONIO Michel - Last Filed: 09/12/22 20:08> Physical Exam Vital Signs: Vital Signs: Last Vital Signs Temp 97.4 F 09/12/22 20:04 Pulse 93 09/12/22 20:04 Resp 18 09/12/22 20:04 BP 162/88 H 09/12/22 20:04 Pulse Ox 98 09/12/22 20:04 O2 Del Method 09/12/22 20:04 BMI result Body Mass Index 28.1 <ANTONIO Michel - Last Filed: 09/12/22 20:08> Vital Signs: Last Vital Signs Temp 97.4 F 09/12/22 20:04 Pulse 93 09/12/22 20:04 Resp 18 09/12/22 20:04 BP 162/88 H 09/12/22 20:04 Pulse Ox 98 09/12/22 20:04 O2 Del Method 09/12/22 20:04 BMI result Body Mass Index 28.1 <Tejas Ba MD - Last Filed: 09/13/22 00:57> Appearance: Alert. Oriented X3. No acute distress. Eyes: Legally blind ENT: Pharynx normal. Oral Mucosa moist Neck: Normal inspection. Neck supple. CVS: Normal heart rate and rhythm. Pulses normal. Respiratory: No respiratory distress. Equal air entry bilateral, Abdomen: Soft and nontender. Bowel sounds are present, Skin: Skin warm and dry. Normal skin color. Normal skin turgor. Small abscess with induration lower back on right side Extremities: No lower extremity edema. No calf tenderness Neuro: Oriented X 3. <Tejas Ba MD - Last Filed: 09/13/22 00:57> Back/Spine/Pelvis: Back/spine/pelvis image: 1. Small indurated chronic looking abscess with slight discharge and tenderness <ANTONIO Michel - Last Filed: 09/12/22 20:08> Back/spine/pelvis image: 1. Small indurated chronic looking abscess with slight discharge and tenderness <Tejas Ba MD - Last Filed: 09/13/22 00:57> Course Course Course Narrative: RME- 20:07 67yoF who was recently diagnosed with an abscess to her back who is [place]ian-speaking presenting with family member at bedside with complaints of worsening pain to the abscess. She reports that she was seen at [facility] approximately 1-2 weeks ago and started on antibiotics although family members unsure what antibiotics although she is taking as prescribed. She reports at nighttime she is having worsening pain when she is laying down. She denies any fevers, history of MRSA or any other symptoms complaints or concerns at this time. On exam she does have some induration and tenderness palpation no purulent discharge is noted. Patient will be sent to [facility] [place] for further evaluation treatment. <ANTONIO Michel - Last Filed: 09/12/22 20:08> Medications Administered Discontinued Medications Generic Name Dose Route Start Last Admin Trade Name Freq PRN Reason Stop Dose Admin Cephalexin HCl 500 mg 09/12/22 22:38 09/12/22 22:48 Cephalexin 500 Mg Capsule PO 09/12/22 22:39 500 mg ONCE ONE Administration Doxycycline Monohydrate 100 mg 09/12/22 22:38 09/12/22 22:48 Doxycycline Monohydrate 100 Mg Capsule PO 09/12/22 22:39 100 mg ONCE ONE Administration Lidocaine HCl 5 ml 09/12/22 22:34 09/12/22 22:48 Lidocaine Hcl 1 % Mpf 5 Ml Vial INFILTRATI 09/12/22 22:35 5 ml ONCE ONE Administration <ANTONIO Michel - Last Filed: 09/12/22 20:08> Medications Administered Discontinued Medications Generic Name Dose Route Start Last Admin Trade Name Freq PRN Reason Stop Dose Admin Cephalexin HCl 500 mg 09/12/22 22:38 09/12/22 22:48 Cephalexin 500 Mg Capsule PO 09/12/22 22:39 500 mg ONCE ONE Administration Doxycycline Monohydrate 100 mg 09/12/22 22:38 09/12/22 22:48 Doxycycline Monohydrate 100 Mg Capsule PO 09/12/22 22:39 100 mg ONCE ONE Administration Lidocaine HCl 5 ml 09/12/22 22:34 09/12/22 22:48 Lidocaine Hcl 1 % Mpf 5 Ml Vial INFILTRATI 09/12/22 22:35 5 ml ONCE ONE Administration <Tejas Ba MD - Last Filed: 09/13/22 00:57> Medical Decision Making Medical Decision Making MDM Narrative: Patient with chronic abscess in the back within duration I&D was tried without any pus discharge discharge patient home on Keflex and doxycycline as patient is diabetic. <Tejas Ba MD - Last Filed: 09/13/22 00:57> Procedures Abscess I/D Site: back (Lower back) <Tejas Ba MD - Last Filed: 09/13/22 00:57> Side (if applicable): right <Tejas Ba MD - Last Filed: 09/13/22 00:57> Local Anesthetic: lidocaine 1% <Tejas Ba MD - Last Filed: 09/13/22 00:57> Amount of anesthesia used (mL): 4 <Tejas Ba MD - Last Filed: 09/13/22 00:57> Technique: incised with blade <Tejas Ba MD - Last Filed: 09/13/22 00:57> Sent for culture/gram staining?: No <Tejas Ba MD - Last Filed: 09/13/22 00:57> Irrigation: No <Tejas Ba MD - Last Filed: 09/13/22 00:57> Packing used?: none <Tejas Ba MD - Last Filed: 09/13/22 00:57> Discharge Plan Discharge Clinical Impression: Abscess of back <ANTONIO Michel - Last Filed: 09/12/22 20:08> Patient Disposition: Home, Self-Care <ANTONIO Michel - Last Filed: 09/12/22 20:08> Instructions: Abscess Incision and Drainage (DC) <ANTONIO Michel - Last Filed: 09/12/22 20:08> Additional Instructions: Local care as advised Take antibiotic as prescribed Follow with PCP as needed Atenci?n local seg?n lo recomendado [place] el antibi?[place] seg?n lo prescrito Siga con PCP seg?n sea necesario <ANTONIO Michel - Last Filed: 09/12/22 20:08> Prescriptions: New cephalexin 500 mg capsule 500 mg PO QID 10 Days Qty: 40 0RF doxycycline hyclate 100 mg tablet 100 mg PO BID Qty: 20 0RF No Action (DME) lancets [FreeStyle Lancets] 28 gauge misc See Rx Instructions .MEDSUPPLY Qty: 100 7RF Rx Instructions: 3 times a day (DME) 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 meter [FreeStyle Lite Meter] Kit See Rx Instructions miscellaneous .MEDSUPPLY Qty: 1 0RF Rx Instructions: 3 times a day Trulicity 1.5 mg/0.5 mL pen injector 1.5 mg subcut QWEEK Qty: 2 2RF naproxen 500 mg tablet 500 mg PO Q12H PRN (Reason: for pain) 90 Days Qty: 180 1RF dicyclomine 20 mg tablet 20 mg PO QID 30 Days Qty: 120 2RF (DME) FreeStyle Lite Strips Strip See Rx Instructions .MEDSUPPLY Qty: 100 11RF Rx Instructions: 3 times a day cholecalciferol (vitamin D3) 25 mcg (1,000 unit) capsule 25 mcg PO DAILY Qty: 90 0RF ezetimibe 10 mg tablet 10 mg PO DAILY 90 Days Qty: 90 1RF atorvastatin 80 mg tablet 80 mg PO BEDTIME 90 Days Qty: 90 0RF amlodipine 10 mg tablet 10 mg PO DAILY 90 Days Qty: 90 0RF Jardiance 25 mg tablet 25 mg PO QAM Qty: 90 0RF omega-3 fatty acids-fish oil 300-1,000 mg capsule 1 cap PO BID Qty: 60 2RF (DME) underpads [Certainty Underpads] 30 X 36 pad See Rx Instructions .Route Qty: 48 6RF Rx Instructions: As directed (DME) adult diapers briefs large See Rx Instructions .Route .MEDSUPPLY Qty: 240 6RF Rx Instructions: As directed mirtazapine 45 mg tablet 1 tab PO BEDTIME diphenhydramine HCl [Benadryl Allergy] 25 mg tablet 50 mg PO TID PRN (Reason: allergic reaction) Qty: 14 0RF (DME) wheelchair See Rx Instructions .Route .MEDSUPPLY Qty: 1 0RF Rx Instructions: As directed simethicone [Gas Relief (simethicone)] 180 mg capsule 180 mg PO BID PRN (Reason: abdominal distention) 90 Days Qty: 180 1RF omeprazole 40 mg capsule,delayed release(DR/EC) 40 mg PO DAILY 90 Days Qty: 90 0RF (DME) personal wipes See Rx Instructions .Route .MEDSUPPLY Qty: 50 6RF Rx Instructions: As directed (DME) gauze bandage [Band-Aid Gauze Pads] 4 X 4 bandage See Rx Instructions .Route Qty: 1200 0RF Rx Instructions: As directed (DME) adhesive tape [Band-Aid Paper Tape] 1 X 10 -yard tape See Rx Instructions .Route Qty: 1 0RF Rx Instructions: As directed doxycycline hyclate 100 mg capsule 100 mg PO BID 7 Days Qty: 14 0RF <ANTONIO Michel - Last Filed: 09/12/22 20:08> Interventions: ED Discharge Assessment Last Done: 09/12/22 23:07 <ANTONIO Michel - Last Filed: 09/12/22 20:08> Discharge Date/Time: 09/12/22 23:08 <ANTONIO Michel - Last Filed: 09/12/22 20:08> Print Language: Zambian <ANTONIO Michel - Last Filed: 09/12/22 20:08>
[2022-09-12] MEDS: Doxycycline Monohydrate 100 MG CAPSULE PO (22:48)
[2022-09-12] MEDS: Lidocaine HCl 1 % MPF 5 ML VIAL INFILTRATI (22:48)
[2022-09-12] MEDS: cephALEXin 500 MG CAPSULE PO (22:48)
== END 2022-09-12 23:08 | disposition home or self-care (01) ==
PROVIDERS: Emergency Provider Internal Medicine; PCP Internal Medicine
DX: L02.212 Cutaneous abscess of back [any part, except buttock and flank] (principal); M54.50 Low back pain, unspecified; Z79.899 Other long term (current) drug therapy
CPT/HCPCS: 10060; 99282; 99284

== ENCOUNTER 2022-12-07 06:46 | Emergency (ER) | payer MEDICARE, MEDICAID, SELFPAY ==
--- NOTE | ~2022-12-07 | XR_ITS ---
EXAMINATION: XR SHOULDER, LEFT X-RAY LEFT WRIST CLINICAL INFORMATION: Shoulder pain. Wrist swelling and pain. COMPARISON: None available. TECHNIQUE: Shoulder 3 views. Wrist 4 views. FINDINGS: Left shoulder: There is apparent depression and dysmorphic appearance of the medial aspect of the humeral head/neck, seen on the frontal projection. This may be related to rotated positioning of the humerus, versus sequela of impaction injury/fracture. Degenerative appearing cysts in the greater tuberosity. Normal glenohumeral articulation.. Mild acromioclavicular arthritis. There is a round 8 mm density projected overlying the superior humeral head, only seen on one view, could reflect overlapping densities versus a loose body.. No acute findings in the visualized left lung. Left wrist: 6 mm ossification adjacent to the distal radial tuberosity, suggestive of sequela of trauma, of indeterminate age, suspected to be chronic. Mild radiocarpal arthritis. Lucencies in the scaphoid and lunate, appearing degenerative. Small curvilinear density proximal to the lunotriquetral joint. Osteopenia. No acute fracture or dislocation is otherwise seen.. Vascular calcification. XR/XR shoulder LT min 2V IMPRESSION: Left shoulder: 1. Osseous findings at the medial aspect of the humeral head/neck, could be related to positioning/technique versus sequela of impaction fracture. Findings appear new as compared to the prior radiograph. Clinically correlate. Additional radiographs of further evaluation as clinically warranted. 2. 8 mm density projected over the superior shoulder, could be related to overlapping densities. Left wrist: 1. 6 mm ossification adjacent the radial styloid process, has a chronic appearance, could be related to prior trauma. Clinically correlate. 2. No acute fracture or dislocation is otherwise seen. 3. Small nonspecific calcification proximal to the lunotriquetral joint.
--- NOTE | ~2022-12-07 | XR_ITS ---
EXAMINATION: XR SHOULDER, LEFT X-RAY LEFT WRIST CLINICAL INFORMATION: Shoulder pain. Wrist swelling and pain. COMPARISON: None available. TECHNIQUE: Shoulder 3 views. Wrist 4 views. FINDINGS: Left shoulder: There is apparent depression and dysmorphic appearance of the medial aspect of the humeral head/neck, seen on the frontal projection. This may be related to rotated positioning of the humerus, versus sequela of impaction injury/fracture. Degenerative appearing cysts in the greater tuberosity. Normal glenohumeral articulation.. Mild acromioclavicular arthritis. There is a round 8 mm density projected overlying the superior humeral head, only seen on one view, could reflect overlapping densities versus a loose body.. No acute findings in the visualized left lung. Left wrist: 6 mm ossification adjacent to the distal radial tuberosity, suggestive of sequela of trauma, of indeterminate age, suspected to be chronic. Mild radiocarpal arthritis. Lucencies in the scaphoid and lunate, appearing degenerative. Small curvilinear density proximal to the lunotriquetral joint. Osteopenia. No acute fracture or dislocation is otherwise seen.. Vascular calcification. XR/XR hand wrist LT IMPRESSION: Left shoulder: 1. Osseous findings at the medial aspect of the humeral head/neck, could be related to positioning/technique versus sequela of impaction fracture. Findings appear new as compared to the prior radiograph. Clinically correlate. Additional radiographs of further evaluation as clinically warranted. 2. 8 mm density projected over the superior shoulder, could be related to overlapping densities. Left wrist: 1. 6 mm ossification adjacent the radial styloid process, has a chronic appearance, could be related to prior trauma. Clinically correlate. 2. No acute fracture or dislocation is otherwise seen. 3. Small nonspecific calcification proximal to the lunotriquetral joint.
[2022-12-07 07:07] VITALS: BP 130/76; PULSE 105; RESP 18; TEMP 36.6; O2SAT 98; BMI 28.4
--- NOTE | 2022-12-07 07:47 | ED.EXTPRO ---
HPI - Extremity Problem General Chief complaint: Extremity Problem Stated complaint: l arm pain no inj Time Seen by Provider: 12/07/22 07:26 Source: patient, family and RN notes reviewed Mode of arrival: ambulatory Limitations: no limitations History of Present Illness HPI Narrative: This is a 63-dkuy-nlb-Georgian-speaking female, with a past medical history of hypertension, hyperlipidemia, diabetes, diabetic nephropathy, diabetic polyneuropathy, GERD, and rhinitis pigment is of both eyes, who presented to the emergency department, accompanied by her granddaughter, with complaints of left shoulder and left wrist swelling and pain x 1 week. Patient denies any recent trauma, injury, falls or heavy lifting. No chest pain, palpitations, she denies any fevers, chills, diffuse joint pain, hx of similar symptoms in the past. Denies taking any medications to treat her current symptoms. Denies any other complaints or concerns at this time. MD Complaint: extremity pain and extremity swelling Onset (ago): week(s) Pain Consistency: constant Location: left and upper extremity Quality: aching Radiation: none Relieving factors: rest Exacerbating factors: range of motion and palpation Associated symptoms: denies other symptoms Related Data Home Medications Medication Instructions Recorded Confirmed mirtazapine 45 mg tablet 1 tab PO BEDTIME 08/01/21 09/04/22 Previous Rx's Medication Instructions Recorded 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 meter (FreeStyle #1 ea 11/15/20 Lite Meter kit) lancets 28 gauge (FreeStyle #100 ea 11/15/20 Lancets) wheelchair #1 ea 11/15/20 adhesive tape 1 X 10 yard #1 ea 08/09/21 (Band-Aid Paper Tape) gauze bandage 4 X 4 (Band-Aid #1,200 ea 08/09/21 Gauze Pads) diphenhydramine HCl 25 mg tablet 50 mg PO TID PRN allergic reaction 11/12/21 (Benadryl Allergy) #14 tabs naproxen 500 mg tablet 500 mg PO Q12H PRN for pain 90 06/07/22 days #180 tabs blood sugar diagnostic (FreeStyle #100 ea 07/12/22 Lite Strips) simethicone 180 mg capsule (Gas 180 mg PO BID PRN abdominal 07/31/22 Relief (simethicone)) distention 90 days #180 caps ezetimibe 10 mg tablet 10 mg PO DAILY 90 days #90 tabs 08/06/22 doxycycline hyclate 100 mg capsule 100 mg PO BID 7 days #14 caps 09/04/22 empagliflozin 25 mg tablet 25 mg PO QAM #90 tabs 09/09/22 (Jardiance) omega-3 fatty acids-fish oil 300 1 cap PO BID #60 caps 09/09/22 mg-1,000 mg capsule adult diapers briefs #240 ea 09/12/22 cephalexin 500 mg capsule 500 mg PO QID 10 days #40 caps 09/12/22 doxycycline hyclate 100 mg tablet 100 mg PO BID #20 tabs 09/12/22 underpads 30 X 36 (Certainty #48 ea 09/12/22 Underpads) dulaglutide 1.5 mg/0.5 mL 1.5 mg (0.5 mL) subcut QWEEK #2 mL 09/26/22 subcutaneous pen injector (Trulicity) personal wipes #200 ea 10/25/22 amlodipine 10 mg tablet 10 mg PO DAILY 90 days #90 tabs 12/02/22 atorvastatin 80 mg tablet 80 mg PO BEDTIME 90 days #90 tabs 12/02/22 cholecalciferol (vitamin D3) 25 25 mcg PO DAILY #90 caps 12/02/22 mcg (1,000 unit) capsule omeprazole 40 mg capsule,delayed 40 mg PO DAILY 90 days #90 caps 12/02/22 release acetaminophen 325 mg tablet 325 mg PO QID PRN pain #45 tabs 12/07/22 (Tylenol) dicyclomine 20 mg tablet 20 mg PO QID 30 days #120 tabs 12/07/22 doxycycline hyclate 100 mg capsule 100 mg PO BID #14 caps 12/07/22 Allergies Allergy/AdvReac Type Severity Reaction Status Date / Time metformin Allergy Intermediate Intolerance, Verified 12/07/22 07:10 chest pain, high BP, diarrhea pantoprazole Allergy Intermediate rash Verified 12/07/22 07:10 quetiapine Allergy Intermediate chest pain Verified 12/07/22 07:10 orange juice Allergy Intermediate gerd Uncoded 09/04/22 10:11 Review of Systems Review of Systems: Constitutional: No Weight loss, No Fever, No Chills, No Night Sweats, No Fatigue, No Malaise ENT/Mouth: No Hearing loss, No Ear Pain, No Nasal Congestion, No Sinus Pain, No Hoarseness, No sore throat, No Rhinorrhea, No Swallowing Difficulty Eyes: No Eye Pain, No Swelling, No Redness, No Foreign Body, No Discharge, No Vision Changes Cardiovascular: No Chest Pain, No SOB, No Dyspnea on Exertion, No Orthopnea, No Edema, No Palpitations Respiratory: No Cough, No Sputum, No Wheezing, No Smoke Exposure, No Dyspnea Gastrointestinal: No Nausea, No Vomiting, No Diarrhea, No Constipation, No Abdominal pain, No Hematochezia, No Melena Genitourinary: No irregular bleeding, No Dysuria, No Urinary Frequency, No Hematuria, No Urinary Incontinence/retention, No Urgency, No Flank Pain, No Urinary Flow Changes, No Hesitancy Musculoskeletal: +wrist pain, +shoulder pain,No joint pain, No Myalgias, No Joint Swelling Skin: No Skin Lesions, No rash Neuro: No Weakness, No Numbness, No Paresthesias, No Loss of Consciousness, No Dizziness, No Headache Psych: No Anxiety/Panic, No Depression, No SI/HI/AH/VH, No Social Issues, Heme/Lymph: No Bruising, No Bleeding,No Lymphadenopathy Endocrine: No Polyuria, No Polydipsia, No Temperature Intolerance Yes all other systems are reviewed and are negative Constitutional: Constitutional: Reports as per [facility] Past Medical History Medical History Dementia Diabetes type 2, uncontrolled Diabetic nephropathy associated with type 2 diabetes mellitus Diabetic polyneuropathy associated with type 2 diabetes mellitus Dyslipidemia GERD (gastroesophageal reflux disease) Hypertension Obesity (BMI 30-39.9) Retinitis pigmentosa of both eyes Vitamin D deficiency Surgical History Hx of cholecystectomy Hx of hernia repair Hx of tubal ligation Family History Family History Father No problems noted. Mother Heart disease HTN (hypertension) Sister Pre-diabetes Brother Leukemia Son In good health Daughter In good health Daughter In good health Social History Social History Household Members: Family Housing: Apartment Alcohol intake: never Patient Tobacco Use Status: Never used Tobacco Smoked in Last 30 Days: No e-Cigarette/Vaping Use: Never Used Second Hand Smoke Exposure: No Use of substances other than those prescribed or required for medical reasons: No Advance Directives: Yes Advance Directives Information Provided: No Advance Directives on File: No service: No Current occupational status: disabled Cognitive needs: No Hearing needs: No Vision needs: No Physical Exam Vital Signs: Vital Signs: Last Vital Signs Temp 98 F 12/07/22 07:07 Pulse 105 H 12/07/22 07:07 Resp 18 12/07/22 07:07 BP 130/76 12/07/22 07:07 Pulse Ox 98 12/07/22 07:07 O2 Del Method Room Air 12/07/22 07:07 BMI result Body Mass Index 28.4 Const: General: cooperative, comfortable and no acute distress Orientation/consciousness: patient oriented x3 Limitations: no limitations HEENT: Head: Yes normal to inspection, Yes normocephalic and Yes atraumatic Ears: hearing grossly normal bilaterally General nose exam: Normal external nose present Face and sinus: Yes normal facial exam Mouth: Normal oral and palatal mucosa present, oropharynx normal and moist mucous membranes Throat: Yes posterior oropharynx normal Eyes: General: appearance normal, both eyes and all related structures Eyelids: Yes eyelids normal Conjunctivae: conjunctivae normal Sclerae: sclerae normal Pupils: Equal, round and reactive pupils present EOM: EOMs intact bilaterally Neck: Neck: Yes normal visual inspection, Yes full ROM and Yes no lymphadenopathy Lymphatic: no lymphadenopathy noted Chest: Chest palpation & inspection: normal inspection of the chest Resp: Effort & Inspection: normal respiratory effort and able to speak in complete sentences Auscultation: clear to auscultation bilaterally, no crackles, no rales, no rhonchi and no wheezes Cardio: Rate: regular rate Rhythm: regular rhythm Heart sounds: S1 normal heart sound present and S2 normal heart sound present GI: Inspection: Yes normal to inspection Skin: General skin exam: no rashes or lesions noted Trauma: no lacerations or abrasions Wounds: no wounds Neuro: General: patient oriented x3 and moves all extremities Cranial nerves: Yes Equal, round and reactive pupils present Extrem: Other: Left wrist with moderate edema noted to the dorsal aspect with tenderness to palpation. Limited passive flexion, extension, ulnar and radial deviation secondary to pain. No erythema, increased warmth noted. Radial pulses 2+. Left shoulder with TTP throughout entire joint, able to flex at the shoulder to about 90 degrees without pain. Pain with abduction at about 30 degrees. Left trapezius with TTP and palpable spasm. General: Yes normal to inspection Right upper extremity: normal to inspection Left upper extremity: normal to inspection Right lower extremity: normal to inspection Left lower extremity: normal to inspection Course Reevaluation(s) Reevaluation #1: Patient remains stable, Patient is afebrile, vital signs within normal limits, No leukocytosis, H&H around baseline. Left shoulder x-ray Technique versus sequela of impaction fracture. I compard this to x-rays performed in July 2022 and findings today seem to be new. Left wrist x-ray shows 6 mm ossification adjacent the radial styloid process, has a chronic appearance, could be related to prior trauma.?Area of erythema outlined with skin marker. ESR 23, CRP 4.49. Discussed findings with patient and granddaughter at bedside. I will start antibiotics to cover for early underlying infection, and will give orthopedic follow up for further management of symptoms. Blood cultures order, lactic 0.7. Pt understands and agrees with plan. Time: 10:27 Medications Administered Discontinued Medications Generic Name Dose Route Start Last Admin Trade Name Freq PRN Reason Stop Dose Admin Acetaminophen 975 mg 12/07/22 07:40 12/07/22 08:14 Acetaminophen 325 Mg Tablet PO 12/07/22 07:41 975 mg ONCE ONE Administration Medical Decision Making Medical Decision Making [facility] Narrative: 67 y/o F, hx of hypertension, hyperlipidemia, diabetes, diabetic nephropathy, diabetic polyneuropathy, GERD, rhinitis pigment is of both eyes, presenting to the emergency department for evaluation of left shoulder and left wrist pain x 1 week. No recent trauma or injury. No chest pain, SOB, palpitations. On examination, pt has TTP over the dorsal aspect of the left wrist with edema, faint erythema noted to the radial aspect of the right dorsal wrist. Limited ROM secondary to pain and swelling. Plan: Labs, Xray left shoulder and left wrist. Differential Diagnosis Differential Diagnoses: The differential diagnosis associated with the presentation includes Left wrist sprain, strain, fracture, arthritis, gout, septic joint - unlikely Lab Data [facility] Lab Attestation statement: I reviewed the patient's lab results. 12/07/22 08:24 12/07/22 08:24 Labs: Lab Results 12/07/22 12/07/22 12/07/22 Range/Units 08:24 08:24 08:24 WBC 7.0 (4.8-10.8) X10*3/uL RBC 4.80 (4.20-5.50) X10*6/uL Hgb 11.5 L (12.0-16.0) g/dl Hct 36.7 L (37.0-47.0) % MCV 76.5 L (80.0-98.0) fL MCH 24.0 L (27.0-33.0) pg MCHC 31.3 (31.0-35.0) g/dl RDW 13.9 (11.0-16.0) % Plt Count 115 L D (160-400) X10*3/uL MPV 11.4 (9.4-12.3) fL Immature Gran % (Auto) 0.1 (0.0-0.4) % Neut % (Auto) 70.7 (45-73) % Lymph % (Auto) 17.8 L (20-40) % Yancey % (Auto) 9.4 (2-11) % Eos % (Auto) 1.7 (0-4) % Baso % (Auto) 0.3 (0-2) % Lymph # (Auto) 1.3 (1.2-4.9) X10*3/uL Yancey # (Auto) 0.7 (0.1-1.2) X10*3/uL Eos # (Auto) 0.1 (0.0-0.4) X10*3/uL Baso # (Auto) 0.0 (0.0-0.2) X10*3/uL Abs Immat Gran (auto) 0.01 (0.00-0.03) X10*3/uL Absolute Neuts (auto) 5.0 (2.0-8.3) x10*3/uL Absolute Nucleated RBC 0.000 (0.0-0.012) X10*3/uL Nucleated RBC % (auto) 0.0 (0.0-0.2) /100WBC ESR 23 H (0-20) MM/HR Sodium 142 (135-145) mmol/L Potassium 3.9 (3.3-5.1) mmol/L Chloride 110 H (96-108) mmol/L Carbon Dioxide 23 (22-29) mmol/L Anion Gap 13 (12-20) BUN 18 H (9-16) mg/dL Creatinine 0.87 (0.5-1.4) mg/dL Estim Creat Clear Calc 52.4 Estimated GFR > 60 Random Glucose 143 H (60-115) mg/dL Lactic Acid (0.5-2.0) mmol/L Uric Acid (2.4-5.7) mg/dL Calcium 9.5 D (8.4-10.2) mg/dL Magnesium 2.1 (1.6-2.6) mg/dL Total Bilirubin 0.6 (0.0-1.0) mg/dL Direct Bilirubin 0.1 (0.0-0.5) mg/dL AST 12 (5-31) U/L ALT 16 (0-31) U/L Alkaline Phosphatase 88 (39-117) U/L C-Reactive Protein 4.49 H (< or = 0.50) mg/dL Total Protein 7.1 (6.5-8.0) g/dL Albumin 4.0 (3.5-5.0) g/dL Lipase 106 H (8-78) U/L 12/07/22 12/07/22 Range/Units 08:24 10:04 WBC (4.8-10.8) X10*3/uL RBC (4.20-5.50) X10*6/uL Hgb (12.0-16.0) g/dl Hct (37.0-47.0) % MCV (80.0-98.0) fL MCH (27.0-33.0) pg MCHC (31.0-35.0) g/dl RDW (11.0-16.0) % Plt Count (160-400) X10*3/uL MPV (9.4-12.3) fL Immature Gran % (Auto) (0.0-0.4) % Neut % (Auto) (45-73) % Lymph % (Auto) (20-40) % Yancey % (Auto) (2-11) % Eos % (Auto) (0-4) % Baso % (Auto) (0-2) % Lymph # (Auto) (1.2-4.9) X10*3/uL Yancey # (Auto) (0.1-1.2) X10*3/uL Eos # (Auto) (0.0-0.4) X10*3/uL Baso # (Auto) (0.0-0.2) X10*3/uL Abs Immat Gran (auto) (0.00-0.03) X10*3/uL Absolute Neuts (auto) (2.0-8.3) x10*3/uL Absolute Nucleated RBC (0.0-0.012) X10*3/uL Nucleated RBC % (auto) (0.0-0.2) /100WBC ESR (0-20) MM/HR Sodium (135-145) mmol/L Potassium (3.3-5.1) mmol/L Chloride (96-108) mmol/L Carbon Dioxide (22-29) mmol/L Anion Gap (12-20) BUN (9-16) mg/dL Creatinine (0.5-1.4) mg/dL Estim Creat Clear Calc Estimated GFR Random Glucose (60-115) mg/dL Lactic Acid 0.7 (0.5-2.0) mmol/L Uric Acid 3.8 (2.4-5.7) mg/dL Calcium (8.4-10.2) mg/dL Magnesium (1.6-2.6) mg/dL Total Bilirubin (0.0-1.0) mg/dL Direct Bilirubin (0.0-0.5) mg/dL AST (5-31) U/L ALT (0-31) U/L Alkaline Phosphatase (39-117) U/L C-Reactive Protein (< or = 0.50) mg/dL Total Protein (6.5-8.0) g/dL Albumin (3.5-5.0) g/dL Lipase (8-78) U/L Radiology Impression Discussion of test interpretation with radiology: I have reviewed the radiologist's reading. External Record Review External record reviewed: Inpatient record, Office record, Outpatient record, Prior outpatient labs, Prior outpatient radiology, Primary care record and Outside ED record Discharge Plan Discharge Clinical Impression: Pain in left wrist, Left shoulder pain Patient Disposition: Home, Self-Care Instructions: Arthralgia (ED), Shoulder Pain (ED) Additional Instructions: Your wrist x-rays show some chronic injuries. Your x-ray of your left shoulder reveals a possible fracture, however it is unclear. Please follow up with [facility] for further management of your symptoms. Take prescribed antibiotic as directed. Complete the full course. Ensure that the redness and swelling does not extend past the blue marker outlined region. If this happens, please return. Wear shoulder sling throughout the day, but please take your arm out of sling and perform gentle stretching for several hours per day to avoid frozen shoulder as this will cause more problems. Take tylenol as needed for pain relief. If any new or worsening symptoms occur, please return for re-evaluation. Las radiograf?as de denson mu?eca muestran algunas lesiones cr?nicas. Denson radiograf?a de denson hombro suze revela ashvin posible fractura, sin embargo, no est? raul. Bina un seguimiento con [facility] para un mayor control de angelica s?ntomas. [place] el antibi?kayleen recetado seg?n las indicaciones. Completa el curso completo. Aseg?rese de que el enrojecimiento y la hinchaz?n no se extiendan m?s all? de la joelle?n delineada con marcador denis. Si esto sucede, por favor regrese. Use un cabestrillo para el hombro tiffanie todo el d?a, drew saque el brazo del cabestrillo y realice estiramientos suaves tiffanie varias horas al d?a para evitar el hombro congelado , ya que esto causar? m?s problemas. [place] Tylenol seg?n sea necesario para aliviar el dolor. Si se presentan s?ntomas nuevos o que empeoran, regrese para ashvin reevaluaci?n. Prescriptions: New doxycycline hyclate 100 mg capsule 100 mg PO BID Qty: 14 0RF acetaminophen [Tylenol] 325 mg tablet 325 mg PO QID PRN (Reason: pain) Qty: 45 0RF No Action (DME) lancets [FreeStyle Lancets] 28 gauge misc See Rx Instructions .MEDSUPPLY Qty: 100 7RF Rx Instructions: 3 times a day (DME) 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 meter [FreeStyle Lite Meter] Kit See Rx Instructions miscellaneous .MEDSUPPLY Qty: 1 0RF Rx Instructions: 3 times a day naproxen 500 mg tablet 500 mg PO Q12H PRN (Reason: for pain) 90 Days Qty: 180 1RF (DME) FreeStyle Lite Strips Strip See Rx Instructions .MEDSUPPLY Qty: 100 11RF Rx Instructions: 3 times a day ezetimibe 10 mg tablet 10 mg PO DAILY 90 Days Qty: 90 1RF Jardiance 25 mg tablet 25 mg PO QAM Qty: 90 0RF omega-3 fatty acids-fish oil 300-1,000 mg capsule 1 cap PO BID Qty: 60 2RF (DME) underpads [Certainty Underpads] 30 X 36 pad See Rx Instructions .Route Qty: 48 6RF Rx Instructions: As directed (DME) adult diapers briefs large See Rx Instructions .Route .MEDSUPPLY Qty: 240 6RF Rx Instructions: As directed Trulicity 1.5 mg/0.5 mL pen injector 1.5 mg subcut QWEEK Qty: 2 2RF (DME) personal wipes See Rx Instructions .Route .MEDSUPPLY Qty: 200 6RF Rx Instructions: As directed amlodipine 10 mg tablet 10 mg PO DAILY 90 Days Qty: 90 0RF atorvastatin 80 mg tablet 80 mg PO BEDTIME 90 Days Qty: 90 0RF omeprazole 40 mg capsule,delayed release(DR/EC) 40 mg PO DAILY 90 Days Qty: 90 0RF cholecalciferol (vitamin D3) 25 mcg (1,000 unit) capsule 25 mcg PO DAILY Qty: 90 0RF dicyclomine 20 mg tablet 20 mg PO QID 30 Days Qty: 120 2RF mirtazapine 45 mg tablet 1 tab PO BEDTIME diphenhydramine HCl [Benadryl Allergy] 25 mg tablet 50 mg PO TID PRN (Reason: allergic reaction) Qty: 14 0RF cephalexin 500 mg capsule 500 mg PO QID 10 Days Qty: 40 0RF doxycycline hyclate 100 mg tablet 100 mg PO BID Qty: 20 0RF (DME) wheelchair See Rx Instructions .Route .MEDSUPPLY Qty: 1 0RF Rx Instructions: As directed simethicone [Gas Relief (simethicone)] 180 mg capsule 180 mg PO BID PRN (Reason: abdominal distention) 90 Days Qty: 180 1RF (DME) gauze bandage [Band-Aid Gauze Pads] 4 X 4 bandage See Rx Instructions .Route Qty: 1200 0RF Rx Instructions: As directed (DME) adhesive tape [Band-Aid Paper Tape] 1 X 10 -yard tape See Rx Instructions .Route Qty: 1 0RF Rx Instructions: As directed doxycycline hyclate 100 mg capsule 100 mg PO BID 7 Days Qty: 14 0RF Referrals: [facility] [Provider Group] Print Language: Georgian
[2022-12-07] MEDS: Acetaminophen 325 MG TABLET 975 MG PO (08:14)
--- NOTE | 2022-12-07 08:19 | PC.NURSE ---
pt a&o x4. calm, cooperative. currently resting quietly on bed with granddaughter at bedside. 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 pt is also chilean speaking but daughter interprets at bedside. Mario Alberto currently drawing labs. medicated per mar. rr even/unlabored. wctm
[2022-12-07 08:29] LABS: MANUAL DIFF FLAG NO
[2022-12-07 08:33] LABS: Basophils Percent Auto 0.3 % (0-2); Eosinophils Absolute Auto 0.1 X10*3/uL (0.0-0.4); Eosinophils Percent Auto 1.7 % (0-4); Hematocrit 36.7 % (37.0-47.0); Hemoglobin 11.5 g/dl (12.0-16.0); Imm Gran Abs Auto 0.01 X10*3/uL (0.00-0.03); Imm Gran Pct Auto 0.1 % (0.0-0.4); Lymphocytes Absolute Auto 1.3 X10*3/uL (1.2-4.9); Lymphocytes Percent Auto 17.8 % (20-40); Mean Corpuscular HGB Conc 31.3 g/dl (31.0-35.0); Mean Corpuscular Volume 76.5 fL (80.0-98.0); Mean Platelet Volume 11.4 fL (9.4-12.3); Monocytes Absolute Auto 0.7 X10*3/uL (0.1-1.2); Monocytes Percent Auto 9.4 % (2-11); Neutrophils Percent Auto 70.7 % (45-73); Platelet Count 115 X10*3/uL (160-400); Red Cell Distribution Width 13.9 % (11.0-16.0)
[2022-12-07 08:49] LABS: Uric Acid 3.8 mg/dL (2.4-5.7)
[2022-12-07 08:50] LABS: Alanine Aminotransferase 16 U/L (0-31); Alkaline Phosphatase 88 U/L (39-117); Anion Gap 13 (12-20); Aspartate Amino Transferase 12 U/L (5-31); Bilirubin Direct 0.1 mg/dL (0.0-0.5); Bilirubin Total 0.6 mg/dL (0.0-1.0); Blood Urea Nitrogen 18 mg/dL (9-16); C Reactive Protein 4.49 mg/dL (< or = 0.50); Calcium 9.5 mg/dL (8.4-10.2); Carbon Dioxide 23 mmol/L (22-29); Chloride 110 mmol/L (96-108); Creatinine Clr Calc Pharmacy 52.4; Estimated Glomerular Filt Rate > 60; Glucose Random 143 mg/dL (60-115); Lipase 106 U/L (8-78); Magnesium 2.1 mg/dL (1.6-2.6); Potassium 3.9 mmol/L (3.3-5.1); Sodium 142 mmol/L (135-145); Total Protein 7.1 g/dL (6.5-8.0)
[2022-12-07 09:22] LABS: Erythrocyte Sedimentation Rate 23 MM/HR (0-20)
[2022-12-07 10:19] LABS: Lactic Acid 0.7 mmol/L (0.5-2.0)
== END 2022-12-07 11:13 | disposition home or self-care (01) ==
PROVIDERS: Physician Assistant Medical; Emergency Provider Emergency Medicine; PCP Internal Medicine
DX: M25.512 Pain in left shoulder (principal); M25.532 Pain in left wrist; E11.9 Type 2 diabetes mellitus without complications; I10 Essential (primary) hypertension; E78.5 Hyperlipidemia, unspecified; Z79.02 Long term (current) use of antithrombotics/antiplatelets; Z79.85 Long-term (current) use of injectable non-insulin antidiabetic drugs; Z79.899 Other long term (current) drug therapy
CPT/HCPCS: 36415; 73030; 73110; 73130; 80048; 80076; 83605; 83690; 83735; 84550; 85025; 85652; 86140; 87040; 99283; 99284

== ENCOUNTER 2022-12-09 10:10 | Outpatient (REF) | payer MEDICARE, MEDICAID, SELFPAY ==
--- NOTE | ~2022-12-09 | MM_ITS ---
EXAMINATION: MM SCREENING DIGITAL BREAST TOMOSYNTHESIS, BILATERAL CLINICAL INFORMATION: Screening. Asymptomatic. The lifetime risk of breast cancer based on the Tyrer-Cuzick Model is 4%. COMPARISON: Mammography: 12/07/2021, 06/05/2019, 11/21/2017, 11/07/2016 TECHNIQUE: Digital breast tomosynthesis is performed in both the craniocaudal and mediolateral oblique views along with computer-aided detection (CAD). Synthesized 2D images are generated from the tomosynthesis. FINDINGS: There are scattered areas of fibroglandular density (ACR BI-RADS breast composition Category b). Breast tissue composition borders on predominantly fatty. There are no significant masses, abnormal calcifications, or other abnormalities. Background stromal and fibroglandular densities are normal. The axilla and skin contours are unremarkable. Incidental small low left axillary tail node is similar to prior studies. MM/MM tomosynthesis screening BI IMPRESSION: No mammographic evidence of malignancy. ASSESSMENT: BI-RADS 2: Benign RECOMMENDATION: Routine annual mammography screening. This patient's information was entered into a reminder system with a target due date for their next mammogram.
== END 2022-12-09 10:11 | disposition home or self-care (01) ==
LOC: HO.MAMMO 10:10
PROVIDERS: PCP Internal Medicine; Visit Provider Internal Medicine
DX: Z12.31 Encounter for screening mammogram for malignant neoplasm of breast (principal)
CPT/HCPCS: 77063; 77067

== ENCOUNTER 2023-01-17 07:53 | Outpatient (REF) | payer MEDICARE, MEDICAID, SELFPAY | END 2023-01-17 07:54 | disposition home or self-care (01) | LOC: HO.HOSX 07:53 | PROVIDERS: Visit Provider Physician Assistant | DX: M19.032 Primary osteoarthritis, left wrist (principal) | CPT/HCPCS: 73110; 99202 ==

== ENCOUNTER 2023-04-02 10:41 | Outpatient (REF) | payer MEDICARE, MEDICAID, SELFPAY ==
[2023-04-02 11:15] LABS: MANUAL DIFF FLAG NO
[2023-04-02 11:58] LABS: Basophils Percent Auto 0.6 % (0-2); Eosinophils Absolute Auto 0.1 X10*3/uL (0.0-0.4); Hematocrit 38.9 % (37.0-47.0); Hemoglobin 11.9 g/dl (12.0-16.0); Imm Gran Abs Auto 0.02 X10*3/uL (0.00-0.03); Imm Gran Pct Auto 0.4 % (0.0-0.4); Lymphocytes Absolute Auto 1.2 X10*3/uL (1.2-4.9); Lymphocytes Percent Auto 22.6 % (20-40); Mean Corpuscular HGB Conc 30.6 g/dl (31.0-35.0); Mean Corpuscular Hemoglobin 24.3 pg (27.0-33.0); Mean Corpuscular Volume 79.6 fL (80.0-98.0); Mean Platelet Volume 12.6 fL (9.4-12.3); Monocytes Absolute Auto 0.4 X10*3/uL (0.1-1.2); Monocytes Percent Auto 6.7 % (2-11); Neutrophils Absolute Auto 3.7 x10*3/uL (2.0-8.3); Neutrophils Percent Auto 67.7 % (45-73); Platelet Count 147 X10*3/uL (160-400); Red Blood Count 4.89 X10*6/uL (4.20-5.50); Red Cell Distribution Width 14.4 % (11.0-16.0); White Blood Count 5.4 X10*3/uL (4.8-10.8)
[2023-04-02 12:53] LABS: Alanine Aminotransferase 18 U/L (0-31); Albumin Level 4.5 g/dL (3.5-5.0); Alkaline Phosphatase 73 U/L (39-117); Anion Gap 14 (12-20); Aspartate Amino Transferase 15 U/L (5-31); Bilirubin Total 0.3 mg/dL (0.0-1.0); Blood Urea Nitrogen 18 mg/dL (9-16); Calcium 10.1 mg/dL (8.4-10.2); Carbon Dioxide 26 mmol/L (22-29); Chloride 107 mmol/L (96-108); Cholesterol 174 mg/dL (<200); Estimated Glomerular Filt Rate > 60; Glucose Fasting 138 mg/dL (60-99); HDL Cholesterol 45 mg/dL (>40); Iron 38 mcg/dL (30-160); LDL Cholesterol Calculated 89 mg/dL (<100); Percent Iron Saturation 14 % (15-50); Sodium 143 mmol/L (135-145); Total Iron Binding Capacity 275 mcg/dL (228-428); Total Protein 8.1 g/dL (6.5-8.0); Triglycerides 204 mg/dL (<150); Unsaturated Iron Binding 237 ug/dL
[2023-04-02 13:08] LABS: Vitamin D 25-OH Total 40.1 ng/mL (>30)
[2023-04-02 13:24] LABS: Folate 16.1 ng/mL (> or = 4.0); Vitamin B12 509 pg/mL (200-900)
[2023-04-02 14:11] LABS: Creatinine Urine 99.96 mg/dL
== END 2023-04-02 10:42 | disposition home or self-care (01) ==
LOC: HO.LAB 10:41
PROVIDERS: PCP Internal Medicine; Visit Provider Internal Medicine
DX: E55.9 Vitamin D deficiency, unspecified (principal); E78.5 Hyperlipidemia, unspecified; D64.9 Anemia, unspecified; E11.9 Type 2 diabetes mellitus without complications; E53.8 Deficiency of other specified B group vitamins
CPT/HCPCS: 36415; 80053; 80061; 82043; 82306; 82570; 82607; 82746; 83540; 85025

== ENCOUNTER 2023-04-23 11:33 | Outpatient (AMB) | payer MEDICARE, MEDICAID, SELFPAY ==
--- NOTE | 2023-04-23 11:39 | A.OFFVIS_ITS ---
Intake Vital Signs 3 04/23/23 11:41 Height 5 ft Weight 146 lb 13.246 oz BMI 28.7 BP 136/75 Blood Pressure Location Rt brachial Position Sitting Pulse 87 Intake Visit Reasons: Epigastric pain Intake Note: Patient presents to in office visit today as a new patient for epigastric pain. Patient presents with her daughter. CC: Patient with c/o epigastric pain, acid reflux, heartburn, belching, constipation, occasional chocking with solid foods, and nausea. Last colonoscopy and EGD about 5 years ago per senia. Counter Dish Carrier Required: Yes Accompanied by: Daughter Allergies metformin Allergy (Intermediate, Verified 04/23/23 11:46) Intolerance, chest pain, high BP, diarrhea pantoprazole Allergy (Intermediate, Verified 04/23/23 11:46) rash quetiapine Allergy (Intermediate, Verified 04/23/23 11:46) chest pain orange juice Allergy (Intermediate, Uncoded 01/17/23 10:39) gerd HPI Epigastric pain 2 HPI0 Details 68-year-old female here for initial eval uation of epigastric pain. She is referred by Anabela Jin of [facility] [place]. PMX Hypertension High cholesterol Diabetes Obesity Dementia Diabetic polyneuropathy Diabetic nephropathy Urinary incontinence History of left leg cellulitis * SURGICAL HISTORY Cholecystectomy Tubal ligation Hernia repair * ALLERGIES Metformin Pantoprazole Seroquel [place] juice * [place] LABS: Laboratory Tests 12/07/22 12/07/22 12/11/22 08:24 08:24 11:24 WBC Hgb Hct MCV MCH Plt Count Estimated GFR Hgb A1c (Clinic) 8.0 H Total Bilirubin Direct Bilirubin 0.1 AST ALT Alkaline Phosphata se C-Reactive Protein 4.49 H Lipase 106 H 04/02/23 04/02/23 04/02/23 11:09 11:09 11:09 WBC 5.4 Hgb 11.9 L Hct 38.9 MCV 79.6 L MCH 24.3 L Plt Count 147 L D Estimated GFR > 60 Hgb A1c (Clinic) Total Bilirubin 0.3 Direct Bilirubin AST 15 ALT 18 Alkaline Phosphata se 73 C-Reactive Protein Lipase 2015 EGD [place] EGD: Videoendoscope was introduced without difficulty. It was navigated into the posterior pharynx and into the esophagus. Esophageal mucosa was normal down to the GE junction. On entering the stomach, there was bile present. The area was flushed and suctioned. There was generalized erythema of the body and antrum. Duodenal bulb had 3 separate areas of polypoid tissue with telangiectatic rims. It was difficult to ascertain whether this was Sharmila gland hyperplasia atypical or perhaps upper GI adenomatous polyps. Due to the hyperemia, no biopsies of those. The duodenum itself appeared endoscopically normal. Random gastric biopsies were obtained. ? General Impression: Superficial gastritis, duodenal polyps (of questionable significance). ? Colonoscopy: Digital rectal exam revealed poor sphincter tone. The videocolonoscope was introduced without difficulty. It was navigated into the rectosigmoid and sigmoid. Prep was excellent. The scope was slowly advanced through the sigmoid, descending, transverse, and ascending colon. With extrinsic abdominal pressure, we were able to facilitate entering the cecal cap. The appendiceal orifice was seen. Ileocecal valve was seen. The scope was slowly withdrawn. Prep was excellent. Good mucosal detail was seen. At approximately 14 cm, there was a somewhat flattened raised mucosal region that looked more like a flat polyp area. This was removed excisionally. There was mild oozing from the site. Resolution clip was applied. Anorectal verge was clear. ? General Impression: Colonic polyp. ? PLAN: Current recommendations for repeat asymptomatic screening in this patient will vary on her clinical condition as time goes on. However, if the polyp is a tubular adenoma, I would consider repeat in 5 years. Hyperplastic tissue, the patient would be suggested for 10 years. A. GASTRIC, RAND OM, BIOPSIES: 0 0 FRAGMENTS OF ANTRA L AND FUNDIC-TYPE GASTRIC MUCOSA WIT H MILD CHRONIC GAS TRITIS. THE HELICOBACTER P YLORI IMMUNOHISTOC HEMICAL STAIN IS N EGATIVE. 0 B. COLON, AT 14 C M., BIOPSIES: 0 FRAGMENTS OF HYPER PLASTIC POLYP WITH UNDERLYING AMYLOI D. 0 0 SPECIAL STAINS: 0 0 CONGO RED STAIN: POSITIVE. 0 ELASTIN STAIN: NEGATIVE. 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 They tell me that she is burping all of the time, having a lot of acid reflex and indigestion. She is also on Trulicity which causes all of these sx as adverse effects. I explain that this class of medication causes a slowdown of gastric emptying and this is the cause of gastric fermentation and burping. She is on omeprazole 40mg qd which is not helping, and also she is a CKD patient. ALSO she has diarrhea post prandially and while this is most likely r/t post melany syndrome the o2o can cause this as a side effect. She is currently using bentyl for this, but she is taking pills like candy. I want to stop omeprazole since it is not working and she is a renal patient and it can cause diarrhea as a side effect. Were going to get her on Dexilant that is metabolized through the liver. 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 Will start with twice a day dosing and see how she tolerates it. It looks like her primary care tried to prescribe Carafate but were uncertain whether she ever received this and or whether she tolerated it. We will re-evaluate this going forward. She denies any nausea vomiting or weight loss. She does have pain in the general midline gastric area. Significant cardiac murmur noted on exam that family was not aware of and she is complaining of fatiguing with even mild exertion. She has been having swelling in her feet that is new as well. ROV 3 weeks. [facility] Medical History (Updated 04/23/23 @ 13:50 by ISABEL Hernandez) Dementia Retinitis pigmentosa of both eyes GERD (gastroesophageal reflux disease) Obesity (BMI 30-39.9) Vitamin D deficiency Dyslipidemia Hypertension Diabetic polyneuropathy associated with type 2 diabetes mellitus Diabetic nephropathy associated with type 2 diabetes mellitus Diabetes type 2, uncontrolled Surgical History (Updated 04/23/23 @ 11:52 by ZULEMA Wade) History of esophagogastroduodenoscopy (EGD) H/O colonoscopy Hx of cholecystectomy Hx of tubal ligation Hx of hernia repair Family History Father No problems noted. Mother Heart disease HTN (hypertension) Sister Pre-diabetes Brother Leukemia Son In good health Daughter In good health Daughter In good health Social History Household Members: Family Housing: Apartment Alcohol intake: never Patient Tobacco Use Status: Never used Tobacco e-Cigarette/Vaping Use: Never Used Second Hand Smoke Exposure: No service: No Current occupational status: disabled Cognitive needs: No Hearing needs: No Vision needs: No Review of Systems Const Reports fatigue, Denies fever(s), Reports lethargy, Denies night sweats, Denies poor appetite and Denies weight loss Eyes Reports loss of vision ENT Reports Normal hearing present, Denies dental pain, Denies dysphagia, Denies hearing loss, Denies mouth pain, Denies odynophagia, Denies throat swelling, Denies tongue swelling and Reports other (Dentition adequate) Card Reports leg edema and Reports dyspnea on exertion Resp Reports dyspnea on exertion GI Denies abdominal pain, Denies melena, Denies bloating, Denies hematochezia, Denies constipation, Denies GI cramping, Denies dysphagia, Denies excessive flatus, Denies early satiety, Reports dyspepsia, Reports heartburn, Reports diarrhea, Denies nausea, Denies odynophagia, Denies vomiting and Denies hematemesis Skin/Breast Denies pruritus, Denies lesions, Denies rash and Denies jaundice Neuro Reports Normal hearing present, Denies Abnormal speech present, Reports loss of vision and Reports memory loss Psych Reports memory loss Endo Reports fatigue Aller/Immun Denies throat swelling and Denies tongue swelling Physical Exam Vital Signs: Last Vital Signs Pulse 87 04/23/23 11:41 BP 136/75 04/23/23 11:41 BMI result Body Mass Index 28.7 Const General: cooperative, no acute distress, well developed and well groomed Nutritional Appearance: average body habitus and well nourished Orientation/consciousness: oriented to person, oriented to place and oriented to time Limitations: language barrier, physical limitations (Blind) and other limitations (Dementia) HEENT Head: Yes normocephalic and Yes atraumatic Eyes General: appearance normal, both eyes and all related structures Pupils: Equal, round and reactive pupils present Neck Neck: Yes normal visual inspection and Yes no lymphadenopathy Thyroid: Thyroid normal Resp Effort & Inspection: normal respiratory effort and able to speak in complete sentences Auscultation: clear to auscultation bilaterally Cardio Rate: regular rate Rhythm: regular rhythm Heart sounds: Murmur heart sound present systolic (. Mitral/pulmonic with radiation to the axilla and allay click) Peripheral pulses: radial pulses present and posterior tibial pulses present GI Inspection: No distended, No Abdominal panniculus present and Yes obesity Palpation (GI): Soft to palpation, nontender, no guarding, not rigid and No hepatosplenomegaly present Percussion: Yes normal to percussion Auscultation: normal bowel sounds Rectal Exam - Female: deferred Abdomen image: 2 1. Area of infected excoriation Skin General skin exam: no rashes or lesions noted, turgor normal, skin not dry, no jaundice, No spider nevi and no striae Rashes: no rashes Nails: normal Neuro General: oriented to person, oriented to place and oriented to time Cranial nerves: Yes Equal, round and reactive pupils present and Yes Normal hearing present Speech: No Abnormal speech present Extrem General: Yes normal to inspection, No clubbing, No cyanosis and No edema Psych Appearance: grossly normal and well kempt Mental Status: other Speech and movement: Mute speech present Affect: normal affect Attitude: cooperative Thought process: Other thought process findings present Thought content: other Insight: Poor insight present (Psych) Judgement: Poor judgement present (Psych) Assessment & Plan Assessment & Plan (1) Post-cholecystectomy syndrome: Code(s): K91.5 - Postcholecystectomy syndrome Plan: [place] #Josephine Live She is here with her daughter who is the primary community assistant as 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 They tell me that she is burping all of the time, having a lot of acid reflex and indigestion. She is also on Trulicity which causes all of these sx as adverse effects. I explain that this class of medication causes a slowdown of gastric emptying and this is the cause of gastric fermentation and burping. She is on omeprazole 40mg qd which is not helping, and also she is a CKD patient. ALSO she has diarrhea post prandially and while this is most likely r/t post melany syndrome the o2o can cause this as a side effect. She is currently using bentyl for this, but she is taking pills like candy. I want to stop omeprazole since it is not working and she is a renal patient and it can cause diarrhea as a side effect. Were going to get her on Dexilant that is metabolized through the liver. 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 Will start with twice a day dosing and see how she tolerates it. It looks like her primary care tried to prescribe Carafate but were uncertain whether she ever received this and or whether she tolerated it. We will re-evaluate this going forward. She denies any nausea vomiting or weight loss. She does have pain in the general midline gastric area. Significant cardiac murmur noted on exam that family was not aware of and she is complaining of fatiguing with even mild exertion. She has been having swelling in her feet that is new as well. ROV 3 weeks. (2) Lower extremity edema: Code(s): R60.0 - Localized edema (3) Fatigue: Code(s): R53.83 - Other fatigue (4) Mitral murmur: Code(s): I34.0 - Nonrheumatic mitral (valve) insufficiency Orders: Referrals 2 Cardiology Referral I34.0 - Nonrheumatic mitral (valve) insufficiency, R53.83 - Other fatigue, R60.0 - Localized edema Medications: New 2 dexlansoprazole (Dexilant) 60 mg PO DAILY 30 days 30 caps 0RF cholestyramine-aspartame 4 gram (Cholestyramine Light) administer w/meal; avoid other meds within 1hr before or 4-6hr after dose 4 grams PO BID 239.4 grams 6RF K91.5 - Postcholecystectomy syndrome Discontinued 2 sucralfate (Carafate) Discontinued Reason: Doctor's Order 1 g PO BID 30 days 60 tabs 0RF omeprazole Discontinued Reason: Doctor's Order 40 mg PO DAILY 90 days 90 caps 0RF Coding Level of Care Code New Pt Level 3 (75769) Diagnoses Post-cholecystectomy syndrome K91.5 Lower extremity edema R60.0 Fatigue R53.83 Mitral murmur I34.0
[2023-04-23 11:41] VITALS: BP 136/75; PULSE 87; BMI 28.7
== END 2023-04-23 13:01 | disposition home or self-care (01) ==
PROVIDERS: PCP Internal Medicine; Visit Provider Nurse Practitioner
DX: K91.5 Postcholecystectomy syndrome (principal); R60.0 Localized edema; R53.83 Other fatigue; I34.0 Nonrheumatic mitral (valve) insufficiency
CPT/HCPCS: 99203; 99213

== ENCOUNTER → 2023-04-23 11:33 | Outpatient (BNVA) | payer MEDICARE, MEDICAID, SELFPAY | PROVIDERS: PCP Internal Medicine; Visit Provider Nurse Practitioner ==

== ENCOUNTER 2023-05-14 14:09 | Outpatient (AMB) | payer MEDICARE, MEDICAID, SELFPAY ==
--- NOTE | 2023-05-14 14:19 | MHC.OFFVIS ---
Intake Vital Signs 05/14/23 14:22 Height 5 ft Weight 149 lb 14.629 oz BMI 29.3 BP 130/70 Blood Pressure Location Rt brachial Position Sitting Pulse 97 Intake Visit Reasons: 3 week follow up Intake Note: Patient presents to in office visit today in follow up of constipation. CC: Patient reports she continues feeling nausea, epigastric pain, belching, and constipation. Denies any new GI symptoms. Obstetric Assistant Required: Yes Obstetric Assistant Name: daughter in law Accompanied by: Daughter Allergies metformin Allergy (Intermediate, Verified 04/23/23 11:46) Intolerance, chest pain, high BP, diarrhea pantoprazole Allergy (Intermediate, Verified 04/23/23 11:46) rash quetiapine Allergy (Intermediate, Verified 04/23/23 11:46) chest pain orange juice Allergy (Intermediate, Uncoded 01/17/23 10:39) gerd HPI 3 week follow up HPI Details Assessment & Plan (1) Post-cholecystectomy syndrome: Code(s): K91.5 - Postcholecystectomy syndrome Plan: Bulgarian #Josephine Palomo She is here with her daughter who is the primary power plant supervisor as 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 They tell me that she is burping all of the time, having a lot of acid reflex and indigestion. She is also on Trulicity which causes all of these sx as adverse effects. I explain that this class of medication causes a slowdown of gastric emptying and this is the cause of gastric fermentation and burping. She is on omeprazole 40mg qd which is not helping, and also she is a CKD patient. ALSO she has diarrhea post prandially and while this is most likely r/t post melany syndrome the o2o can cause this as a side effect. She is currently using bentyl for this, but she is taking pills like candy. I want to stop omeprazole since it is not working and she is a renal patient and it can cause diarrhea as a side effect. Were going to get her on Dexilant that is metabolized through the liver. 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 Will start with twice a day dosing and see how she tolerates it. It looks like her primary care tried to prescribe Carafate but were uncertain whether she ever received this and or whether she tolerated it. We will re-evaluate this going forward. She denies any nausea vomiting or weight loss. She does have pain in the general midline gastric area. Significant cardiac murmur noted on exam that family was not aware of and she is complaining of fatiguing with even mild exertion. She has been having swelling in her feet that is new as well. ROV 3 weeks. (2) Lower extremity edema: Code(s): R60.0 - Localized edema (3) Fatigue: Code(s): R53.83 - Other fatigue (4) Mitral murmur: Code(s): I34.0 - Nonrheumatic mitral (valve) insufficiency Orders: Referrals Cardiology Referra l I34.0 - Nonrheumat ic mitral (valve) insufficiency, R53 .83 - Other fatigu e, R60.0 - Localiz ed edema Medications: New dexlansoprazole (D exilant) 60 mg PO DAILY 30 days 30 caps 0RF cholestyramine-asp artame 4 gram (Cho lestyramine Light) administer w/m eal; avoid other m eds within 1hr bef ore or 4-6hr after dose 4 grams PO BID 23 9.4 grams 6RF K91.5 - Postcholec ystectomy syndrome Discontinued sucralfate (Carafa te) Discontinue d Reason: Doctor' s Order 1 g PO BID 30 day s 60 tabs 0RF omeprazole Disc ontinued Reason: Doctor's Order 40 mg PO DAILY 90 days 90 caps 0RF CORRESPONDENCE On 05/07/23 @ 08:58 Chana Lang Wrote To Chana Lang (2) Okay, let us just switch her to the Carafate suspension. Please advise her that it is very important that she take this at noon so that it is not in her stomach at the same time as her other chronic medications. This is because it will block absorption of her other medications if taken at other times of the day. I want her to take 20 mL once a day and will see how that goes from there. On 05/06/23 @ 11:50 Nannette Mgcill Wrote To Chana Lang I spoke w/ daughter as she was inquiring about use of Cholestyramine powder and clarification on the instructions and she states that the flavor of the powder is orange and her mother is allergic to orange. I called pharmacy and they state they would have to look up if theres different flavors and call me back. patients daughter states f/u scheduled within the next few weeks is to evaluate how medication is working but mother has not begun to take the medication yet. please advise multiple TODAY'S VISIT Sinhala #dtr-in -law translates per pt request. And her dtr is here as her primary power plant supervisor. She says she received the Dexilant and she could not take the cholestyramine r/t an orange allergy. So I had sent carafate liquid but she just started it 3 days ago and so far no improvement in post prandial diarrhea or GERD. SO, we will continues carafate (although she does not like the way it tastes!) at same dose and add loperamide 2mg bid holding only for CIC. ROV 2 weeks. . Ask them about a cardiology referral at the next visit. [facility] Medical History Dementia Retinitis pigmentosa of both eyes GERD (gastroesophageal reflux disease) Obesity (BMI 30-39.9) Vitamin D deficiency Dyslipidemia Hypertension Diabetic polyneuropathy associated with type 2 diabetes mellitus Diabetic nephropathy associated with type 2 diabetes mellitus Diabetes type 2, uncontrolled Surgical History History of esophagogastroduodenoscopy (EGD) H/O colonoscopy Hx of cholecystectomy Hx of tubal ligation Hx of hernia repair Family History Father No problems noted. Mother Heart disease HTN (hypertension) Sister Pre-diabetes Brother Leukemia Son In good health Daughter In good health Daughter In good health Social History Household Members: Family Housing: Apartment Alcohol intake: never Patient Tobacco Use Status: Never used Tobacco e-Cigarette/Vaping Use: Never Used Second Hand Smoke Exposure: No service: No Current occupational status: disabled Cognitive needs: No Hearing needs: No Vision needs: No Review of Systems Const Reports fatigue, Denies fever(s), Denies night sweats, Denies poor appetite and Denies weight loss ENT Reports Normal hearing present, Denies dental pain, Denies dysphagia, Denies hearing loss, Denies mouth pain, Denies odynophagia, Denies throat swelling, Denies tongue swelling and Reports other (Dentition adequate) Card Reports leg edema and Reports dyspnea on exertion Resp Reports dyspnea on exertion GI Denies abdominal pain, Denies melena, Denies bloating, Denies hematochezia, Denies constipation, Denies GI cramping, Denies dysphagia, Denies excessive flatus, Denies early satiety, Reports dyspepsia, Reports heartburn, Reports diarrhea, Denies nausea, Denies odynophagia, Denies vomiting and Denies hematemesis Skin/Breast Denies pruritus, Denies lesions, Denies rash and Denies jaundice Neuro Reports Normal hearing present and Reports memory loss Psych Reports memory loss Endo Reports fatigue Aller/Immun Denies throat swelling and Denies tongue swelling Physical Exam Vital Signs: Last Vital Signs Pulse 97 05/14/23 14:22 BP 130/70 05/14/23 14:22 BMI result Body Mass Index 29.3 Const General: cooperative, no acute distress, well developed and well groomed Nutritional Appearance: well nourished and overweight Orientation/consciousness: oriented to person Limitations: language barrier and other limitations (Memory) HEENT Head: Yes normocephalic and Yes atraumatic Eyes General: appearance normal, both eyes and all related structures Pupils: Equal, round and reactive pupils present Neck Neck: Yes normal visual inspection and Yes no lymphadenopathy Thyroid: Thyroid normal Resp Effort & Inspection: normal respiratory effort and able to speak in complete sentences Auscultation: clear to auscultation bilaterally Cardio Rate: regular rate Rhythm: regular rhythm Heart sounds: Murmur heart sound present (Mitral/pulmonic murmur with radiation to the axilla) Peripheral pulses: radial pulses present and posterior tibial pulses present GI Inspection: No distended, No Abdominal panniculus present and Yes obesity Palpation (GI): Soft to palpation, nontender, no guarding, not rigid and No hepatosplenomegaly present Percussion: Yes normal to percussion Auscultation: normal bowel sounds Rectal Exam - Female: deferred Skin General skin exam: no rashes or lesions noted, turgor normal, skin not dry, no jaundice, No spider nevi and no striae Rashes: no rashes Nails: normal Neuro General: oriented to person Cranial nerves: Yes Equal, round and reactive pupils present and Yes Normal hearing present Gait exam (Neuro): Shuffling gait present Extrem General: Yes normal to inspection, No clubbing, No cyanosis and No edema Psych Appearance: grossly normal and well kempt Mental Status: other Speech and movement: Mute speech present Affect: Indifferent affect present Attitude: Other attitude/behavior findings present (Psych) Thought process: Other thought process findings present Thought content: other Insight: Poor insight present (Psych) Judgement: Poor judgement present (Psych) Assessment & Plan Assessment & Plan (1) Post-cholecystectomy syndrome: Code(s): K91.5 - Postcholecystectomy syndrome Plan: Sinhala #dtr-in -law translates per pt request. And her dtr is here as her primary power plant supervisor. She says she received the Dexilant and she could not take the cholestyramine r/t an orange allergy. So I had sent carafate liquid but she just started it 3 days ago and so far no improvement in post prandial diarrhea or GERD. SO, we will continues carafate (although she does not like the way it tastes!) at same dose and add loperamide 2mg bid holding only for CIC. (They tell me that she is burping all of the time, having a lot of acid reflex and indigestion. She is also on Trulicity which causes all of these sx as adverse effects. I explain that this class of medication causes a slowdown of gastric emptying and this is the cause of gastric fermentation and burping. ) ROV 2 weeks. . Ask them about a cardiology referral at the next visit. (2) GERD (gastroesophageal reflux disease): Code(s): K21.9 - Gastro-esophageal reflux disease without esophagitis Qualifiers: Esophagitis presence: esophagitis presence not specified Qualified Code(s): K21.9 - Gastro-esophageal reflux disease without esophagitis (3) Dementia: Code(s): F03.90 - Unspecified dementia, unspecified severity, without behavioral disturbance, psychotic disturbance, mood disturbance, and anxiety Qualifiers: Alzheimer's disease onset: early-onset Dementia behavioral disturbance: without behavioral disturbance Dementia type: Alzheimer's Qualified Code(s): G30.0 - Alzheimer's disease with early onset; F02.80 - Dementia in other diseases classified elsewhere without behavioral disturbance Medications: New loperamide (Imodium A-D) 2 mg PO BID 60 caps 6RF loose stool F03.90 - Unspecified dementia, unspecified severity, without behavioral disturbance, psychotic disturbance, mood disturbance, and anxiety, K21.9 - Gastro-esophageal reflux disease without esophagitis, K91.5 - Postcholecystectomy syndrome Refilled dicyclomine 20 mg PO QID 30 days 120 tabs 2RF Coding Level of Care Code Est Pt Level 3 (90622) Diagnoses Post-cholecystectomy syndrome K91.5 Gastroesophageal reflux disease, unspecified whether esophagitis present K21.9 Esophagitis presence: esophagitis presence not specified Early onset Alzheimer's dementia without behavioral disturbance G30.0; F02.80 Alzheimer's disease onset: early-onset Dementia behavioral disturbance: without behavioral disturbance Dementia type: Alzheimer's
[2023-05-14 14:22] VITALS: BP 130/70; PULSE 97; BMI 29.3
== END 2023-05-14 15:06 | disposition home or self-care (01) ==
PROVIDERS: PCP Internal Medicine; Visit Provider Nurse Practitioner
DX: K91.5 Postcholecystectomy syndrome (principal); K21.9 Gastro-esophageal reflux disease without esophagitis; G30.0 Alzheimer's disease with early onset; F02.80 Dementia in other diseases classified elsewhere, unspecified severity, without behavioral disturbance, psychotic disturbance, mood disturbance, and anxiety
CPT/HCPCS: 99213

== ENCOUNTER → 2023-05-14 14:09 | Outpatient (BNVA) | payer MEDICARE, MEDICAID, SELFPAY | PROVIDERS: PCP Internal Medicine; Visit Provider Nurse Practitioner | DX: K91.5 Postcholecystectomy syndrome (principal); K21.9 Gastro-esophageal reflux disease without esophagitis; G30.0 Alzheimer's disease with early onset; F02.80 Dementia in other diseases classified elsewhere, unspecified severity, without behavioral disturbance, psychotic disturbance, mood disturbance, and anxiety | CPT/HCPCS: 99212 ==

== ENCOUNTER 2023-05-28 13:14 | Outpatient (AMB) | payer MEDICARE, MEDICAID, SELFPAY ==
--- NOTE | 2023-05-28 13:21 | A.OFFVIS_ITS ---
Intake Vital Signs 05/28/23 13:22 Height 5 ft Weight 149 lb 14.629 oz BMI 29.3 BP 141/72 H Blood Pressure Location Rt brachial Position Sitting Pulse 96 Intake Visit Reasons: 2 week follow up Intake Note: Patient presents to in office visit today in follow up of constipation. CC: Patient c/o abdominal pain after eating, and occasional constipation. Denies other GI symptoms. Cemetery Warden Required: Yes Cemetery Warden Name: daughter in law Accompanied by: Daughter Allergies metformin Allergy (Intermediate, Verified 06/09/23 12:47) Intolerance, chest pain, high BP, diarrhea pantoprazole Allergy (Intermediate, Verified 06/09/23 12:47) rash quetiapine Allergy (Intermediate, Verified 06/09/23 12:47) chest pain orange juice Allergy (Intermediate, Uncoded 06/04/23 10:28) gerd HPI 2 week follow up HPI Details Assessment & Plan (1) Post-cholecystectomy syndrome: Code(s): K91.5 - Postcholecystectomy syndrome Plan: Mongolian #dtr-in -law translates per pt request. And her dtr is here as her primary solutions architect consultant. She says she received the Dexilant and she could not take the cholestyramine r/t an orange allergy. So I had sent carafate liquid but she just started it 3 days ago and so far no improvement in post prandial diarrhea or GERD. SO, we will continues carafate (although she does not like the way it tastes!) at same dose and add loperamide 2mg bid holding only for CIC. (They tell me that she is burping all of the time, having a lot of acid reflex and indigestion. She is also on Trulicity which causes all of these sx as adverse effects. I explain that this class of medication causes a slowdown of gastric emptying and this is the cause of gastric fermentation and burping. ) ROV 2 weeks. . Ask them about a cardiology referral at the next visit. (2) GERD (gastroesophageal reflux diseas e): Code(s): K21.9 - Gastro-esophageal reflux disease without esophagitis Qualifiers: Esophagitis presence: esophagitis presence not specified Qualified Code(s): K21.9 - Gastro-esophageal reflux disease without esophagitis (3) Dementia: Code(s): F03.90 - Unspecified dementia, unspecified severity, without behavioral disturbance, psychotic disturbance, mood disturbance, and anxiety Qualifiers: Alzheimer's disease onset: early-onset Dementia behavioral disturbance: without behavioral disturbance Dementia type: Alzheimer's Qualified Code(s): G30.0 - Alzheimer's disease with early onset; F02.80 - Dementia in other diseases classified elsewhere without behavioral disturbance Medications: New loperamide (Imodiu m A-D) 2 mg PO BID 60 ca ps 6RF loose stool F03.90 - Unspecifi ed dementia, unspe cified severity, w ithout behavioral disturbance, psych otic disturbance, mood disturbance, and anxiety, K21.9 - Gastro-esophage al reflux disease without esophagiti s, K91.5 - Postcho lecystectomy syndr ome Refilled dicyclomine 20 mg PO QID 30 d ays 120 tabs 2RF CORRESPONDENCE On 05/07/23 @ 08:58 Chana Lang Wrote To Chana Lang (2) Okay, let us just switch her to the Carafate suspension. Please advise her that it is very important that she take this at noon so that it is not in her stomach at the same time as her other chronic medications. This is because it will block absorption of her other medications if taken at other times of the day. I want her to take 20 mL once a day and will see how that goes from there. On 05/06/23 @ 11:50 Nannette Mcgill Wrote To Chana Lang I spoke w/ daughter as she was inquiring about use of Cholestyramine powder and clarification on the instructions and she states that the flavor of the powder is orange and her mother is allergic to orange. I called pharmacy and they state they would have to look up if theres different flavors and call me back. juan luis ents daughter states f/u scheduled within the next few weeks is to evaluate how medication is working but mother has not begun to take the medication yet. please advise multiple TODAY'S VISIT Mongolian # dtr in law translates per pt request. She has 2 female family members with her today and they are supportive. She says that she no diarrhea, but she has a stomach ache from the pills. It seems she has not been moving her bowels now, so we will completely stop the carafate (in fact all the cic meds) until she has a BM then restart them at 1 lo perimide twice a day and the bentyl only. Patient is happy because she did not like taking the Carafate liquid because of taste. ROV 2 weeks. PFS Medical History Dementia Retinitis pigmentosa of both eyes GERD (gastroesophageal reflux disease) Obesity (BMI 30-39.9) Vitamin D deficiency Dyslipidemia Hypertension Diabetic polyneuropathy associated with type 2 diabetes mellitus Diabetic nephropathy associated with type 2 diabetes mellitus Diabetes type 2, uncontrolled Surgical History History of esophagogastroduodenoscopy (EGD) H/O colonoscopy Hx of cholecystectomy Hx of tubal ligation Hx of hernia repair Family History Father No problems noted. Mother Heart disease HTN (hypertension) Sister Pre-diabetes Brother Leukemia Son In good health Daughter In good health Daughter In good health Social History Household Members: Family Housing: Apartment Alcohol intake: never Patient Tobacco Use Status: Never used Tobacco e-Cigarette/Vaping Use: Never Used Second Hand Smoke Exposure: No service: No Current occupational status: disabled Cognitive needs: No Hearing needs: No Vision needs: No Review of Systems Const Denies fatigue, Denies fever(s), Denies night sweats, Denies poor appetite and Denies weight loss ENT Reports Normal hearing present, Denies dental pain, Denies dysphagia, Denies hearing loss, Denies mouth pain, Denies odynophagia, Denies throat swelling, Denies tongue swelling and Reports other (Dentition adequate) Card Reports no additional complaints Resp Reports no additional complaints GI Denies abdominal pain, Denies melena, Denies bloating, Denies hematochezia, Denies constipation, Denies GI cramping, Denies dysphagia, Denies excessive flatus, Denies early satiety, Denies heartburn, Reports diarrhea, Denies nausea, Denies odynophagia, Denies vomiting and Denies hematemesis Skin/Breast Denies pruritus, Denies lesions, Denies rash and Denies jaundice Neuro Reports Normal hearing present, Denies Abnormal speech present and Reports memory loss Psych Reports memory loss Endo Denies fatigue Aller/Immun Denies throat swelling and Denies tongue swelling Physical Exam Vital Signs: Last Vital Signs Pulse 96 05/28/23 13:22 BP 141/72 H 05/28/23 13:22 BMI result Body Mass Index 29.3 Const General: cooperative, no acute distress, well developed and well groomed Nutritional Appearance: well nourished and overweight Orientation/consciousness: oriented to person, oriented to place and oriented to time Limitations: language barrier and other limitations (Memory) HEENT Head: Yes normocephalic and Yes atraumatic Eyes General: appearance normal, both eyes and all related structures Pupils: Equal, round and reactive pupils present Neck Neck: Yes normal visual inspection and Yes no lymphadenopathy Thyroid: Thyroid normal Resp Effort & Inspection: normal respiratory effort and able to speak in complete sentences Auscultation: clear to auscultation bilaterally Cardio Rate: regular rate Rhythm: regular rhythm Heart sounds: Normal, physiologic split S2 sound present Peripheral pulses: radial pulses present and posterior tibial pulses present GI Inspection: No distended, No Abdominal panniculus present and Yes obesity Palpation (GI): Soft to palpation, nontender, no guarding, not rigid and No hepatosplenomegaly present Percussion: Yes normal to percussion Auscultation: normal bowel sounds Rectal Exam - Female: deferred Skin General skin exam: no rashes or lesions noted, turgor normal, skin not dry, no jaundice, No spider nevi and no striae Rashes: no rashes Nails: normal Neuro General: oriented to person, oriented to place and oriented to time Cranial nerves: Yes Equal, round and reactive pupils present and Yes Normal hearing present Speech: No Abnormal speech present Extrem General: Yes normal to inspection, No clubbing, No cyanosis and No edema Psych Appearance: grossly normal and well kempt Mental Status: mental status grossly normal Speech and movement: Normal speech and movement present Affect: normal affect Attitude: cooperative Thought process: Normal thought process present and not confabulating Thought content: Normal thought content present Insight: Limited insight present (Psych) Judgement: Limited judgement present (Psych) Assessment & Plan Assessment & Plan (1) Post-cholecystectomy syndrome: Code(s): K91.5 - Postcholecystectomy syndrome (2) Dementia: Code(s): F03.90 - Unspecified dementia, unspecified severity, without behavioral disturbance, psychotic disturbance, mood disturbance, and anxiety Qualifiers: Alzheimer's disease onset: early-onset Dementia behavioral disturbance: without behavioral disturbance Dementia type: Alzheimer's Qualified Code(s): G30.0 - Alzheimer's disease with early onset; F02.80 - Dementia in other diseases classified elsewhere without behavioral disturbance (3) GERD (gastroesophageal reflux disease): Code(s): K21.9 - Gastro-esophageal reflux disease without esophagitis Qualifiers: Esophagitis presence: esophagitis presence not specified Qualified Code(s): K21.9 - Gastro-esophageal reflux disease without esophagitis Plan Mongolian # dtr in law translates per pt request. She has 2 female family members with her today and they are supportive. She says that she no diarrhea, but she has a stomach ache from the pills. It seems she has not been moving her bowels now, so we will completely stop the carafate (in fact all the cic meds) until she has a BM then restart them at 1 loperimide twice a day and the bentyl only. Patient is happy because she did not like taking the Carafate liquid because of taste. ROV 2 weeks. Patient Instructions: Si no treviño defecado, suspenda todos los medicamentos para el estre?imiento, loperimida, carafato y diciclomina hasta que defeque. Luego reiniciar s?lo la loperimida 1 tableta dos veces al d?a y la diciclomina. ?NO USE EL CARAFATE, DETENGA ESTO TOTALMENTE! Quiero verte en 2 semanas para adam c?mo funciona esto. Coding Level of Care Code Est Pt Level 3 (02070) Diagnoses Post-cholecystectomy syndrome K91.5 Early onset Alzheimer's dementia without behavioral disturbance G30.0; F02.80 Alzheimer's disease onset: early-onset Dementia behavioral disturbance: without behavioral disturbance Dementia type: Alzheimer's Gastroesophageal reflux disease, unspecified whether esophagitis present K21.9 Esophagitis presence: esophagitis presence not specified
[2023-05-28 13:22] VITALS: BP 141/72; PULSE 96; BMI 29.3
== END 2023-05-28 13:53 | disposition home or self-care (01) ==
PROVIDERS: PCP Internal Medicine; Visit Provider Nurse Practitioner
DX: K91.5 Postcholecystectomy syndrome (principal); G30.0 Alzheimer's disease with early onset; F02.80 Dementia in other diseases classified elsewhere, unspecified severity, without behavioral disturbance, psychotic disturbance, mood disturbance, and anxiety; K21.9 Gastro-esophageal reflux disease without esophagitis
CPT/HCPCS: 99213

== ENCOUNTER → 2023-05-28 13:14 | Outpatient (BNVA) | payer MEDICARE, MEDICAID, SELFPAY | PROVIDERS: PCP Internal Medicine; Visit Provider Nurse Practitioner | DX: K91.5 Postcholecystectomy syndrome (principal); K21.9 Gastro-esophageal reflux disease without esophagitis; G30.0 Alzheimer's disease with early onset; F02.80 Dementia in other diseases classified elsewhere, unspecified severity, without behavioral disturbance, psychotic disturbance, mood disturbance, and anxiety | CPT/HCPCS: 99212 ==

== ENCOUNTER 2023-06-04 09:25 | Outpatient (AMB) | payer MEDICARE, MEDICAID, SELFPAY ==
[2023-06-04 10:26] VITALS: BP 110/70; PULSE 93; TEMP 36.7; O2SAT 98; BMI 29.3
--- NOTE | 2023-06-04 10:26 | MHC.OFFWIV ---
Intake Vital Signs 06/04/23 10:26 Height 5 ft Weight 150 lb BMI 29.3 BP 110/70 Blood Pressure Location Rt brachial Position Sitting Pulse 93 Pulse Source Pulse Oximeter Temp 98.0 F Temp Source Oral Pulse Oximetry (%) 98 Oxygen Delivery Method Room Air Intake Visit Reasons: EP, Blister on right great toe Intake Note: Pt is here today c/o Rt grt toe ?blister in between toes Patient Tobacco Use Status: Never used Tobacco Allergies metformin Allergy (Intermediate, Verified 06/04/23 11:01) Intolerance, chest pain, high BP, diarrhea pantoprazole Allergy (Intermediate, Verified 06/04/23 11:01) rash quetiapine Allergy (Intermediate, Verified 06/04/23 11:01) chest pain orange juice Allergy (Intermediate, Uncoded 06/04/23 10:28) gerd Medication List - Last Reconciled 06/04/23 by Zuleyka Cramer, HOME DAY CARE PROVIDER- acetaminophen (Tylenol) 325 mg PO QID PRN adhesive tape (Band-Aid Paper Tape) As directed amlodipine 10 mg PO DAILY 90 days atorvastatin 80 mg PO BEDTIME 90 days blood sugar diagnostic (FreeStyle Lite Strips) 3 times a day 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 meter (FreeStyle Lite Meter kit) 3 times a day cholecalciferol (vitamin D3) 25 mcg PO DAILY dexlansoprazole 60 mg PO DAILY dicyclomine 20 mg PO QID 30 days dulaglutide (Trulicity) 3 mg (0.5 mL) subcut QWEEK 90 days empagliflozin (Jardiance) 25 mg PO QAM ezetimibe 10 mg PO DAILY 90 days gauze bandage (Band-Aid Gauze Pads) As directed glipizide ER 10 mg PO DAILY 90 days lancets (FreeStyle Lancets) 3 times a day loperamide (Imodium A-D) 2 mg PO BID omega-3 fatty acids-fish oil 300-1,000 mg 1 cap PO BID [personal wipes As directed] simethicone (Gas Relief (simethicone)) 180 mg PO BID PRN 90 days tramadol 50 mg PO BID PRN 14 days [wheelchair As directed] HPI HPI Comments History of Present Illness Details here today with daughter complaints of painful skin tear to right foot. Skin tear is located in between the right great toe and 2nd toe. Has been treating at home with triple antibiotic ointment. The patient does have diabetes the daughter is concerned. She denies fever or chills. She is also complaining of feeling like there is something in her left ear assoc with decreased hearing; started over a week ago. [facility] Medical History Dementia Retinitis pigmentosa of both eyes GERD (gastroesophageal reflux disease) Obesity (BMI 30-39.9) Vitamin D deficiency Dyslipidemia Hypertension Diabetic polyneuropathy associated with type 2 diabetes mellitus Diabetic nephropathy associated with type 2 diabetes mellitus Diabetes type 2, uncontrolled Surgical History History of esophagogastroduodenoscopy (EGD) H/O colonoscopy Hx of cholecystectomy Hx of tubal ligation Hx of hernia repair Family History Father No problems noted. Mother Heart disease HTN (hypertension) Sister Pre-diabetes Brother Leukemia Son In good health Daughter In good health Daughter In good health Social History Household Members: Family Housing: Apartment Alcohol intake: never Patient Tobacco Use Status: Never used Tobacco e-Cigarette/Vaping Use: Never Used Second Hand Smoke Exposure: No service: No Current occupational status: disabled Cognitive needs: No Hearing needs: No Vision needs: No Review of Systems Const All systems reviewed & are unremarkable except as noted in HPI and below Physical Exam Vital Signs: Last Vital Signs Temp 98.0 F 06/04/23 10:26 Pulse 93 06/04/23 10:26 BP 110/70 06/04/23 10:26 Pulse Ox 98 06/04/23 10:26 Oxygen Delivery Method Room Air 06/04/23 10:26 BMI result Body Mass Index 29.3 Const Other: awake alert accompanied by dtrANILA used to help w language barrier L EAC + dry cerumen impaction. R EAC clear, TM intact WNL Fissure of skin in between great and second toe on Right side, skin moist, yellow, no drainage or erythema. + pain when skin is . Assessment & Plan Assessment & Plan (1) Fissure in skin of foot: Comment: This area was cleansed today with saline. Xeroform gauze applied followed by a nonadherent dressing. She was advised to perform this daily until the area is healed. I have prescribed antibiotics to cover for infection given history of diabetes. Educated to return to clinic if she develops fever chills or worsening the skin. Code(s): R23.4 - Changes in skin texture (2) Impacted cerumen of left ear: Comment: USE DEBROX PRESCRIBED, RTC MON OR TUE FOR EAR LAVAGE. Code(s): H61.22 - Impacted cerumen, left ear Medications: New carbamide peroxide 6.5% (Debrox) 5 drps otic (ears) Q12H 4 days 15 mL 0RF BILAT EARS cephalexin 500 mg PO Q12H 7 days 14 caps 0RF Coding Level of Care Code Est Pt Level 4 (03325) Diagnoses Fissure in skin of foot R23.4 Impacted cerumen of left ear H61.22
== END 2023-06-04 11:10 | disposition home or self-care (01) ==
PROVIDERS: PCP Internal Medicine; Visit Provider Nurse Practitioner Family
DX: R23.4 Changes in skin texture (principal); H61.22 Impacted cerumen, left ear
CPT/HCPCS: 99214

== ENCOUNTER 2023-06-09 09:58 | Outpatient (AMB) | payer MEDICARE, MEDICAID, SELFPAY ==
--- NOTE | 2023-06-09 12:46 | AM.OFFWIN_ITS ---
Intake Vital Signs 06/09/23 12:47 Height 5 ft Weight 150 lb BMI 29.3 BP 112/70 Blood Pressure Location Rt brachial Position Sitting Pulse 93 Pulse Source Pulse Oximeter Temp 97.8 F Temp Source Temporal Artery Scan Pulse Oximetry (%) 97 Oxygen Delivery Method Room Air Intake Visit Reasons: EP Wax removal Intake Note: pt is here for c/o wax in ears Patient Tobacco Use Status: Never used Tobacco Public Information Coordinator Required: Yes Public Information Coordinator Language: Kiswahili Allergies metformin Allergy (Intermediate, Verified 06/09/23 12:47) Intolerance, chest pain, high BP, diarrhea pantoprazole Allergy (Intermediate, Verified 06/09/23 12:47) rash quetiapine Allergy (Intermediate, Verified 06/09/23 12:47) chest pain orange juice Allergy (Intermediate, Uncoded 06/04/23 10:28) gerd Do you need a note to return to daycare/school/sports/work: Yes HPI EP Wax removal HPI Details 68-year-old female presents to the [facility] for a sick visit. Patient is unable to hear from the left ear. The left ear feels blocked. [facility] Medical History Dementia Retinitis pigmentosa of both eyes GERD (gastroesophageal reflux disease) Obesity (BMI 30-39.9) Vitamin D deficiency Dyslipidemia Hypertension Diabetic polyneuropathy associated with type 2 diabetes mellitus Diabetic nephropathy associated with type 2 diabetes mellitus Diabetes type 2, uncontrolled Surgical History History of esophagogastroduodenoscopy (EGD) H/O colonoscopy Hx of cholecystectomy Hx of tubal ligation Hx of hernia repair Family History Father No problems noted. Mother Heart disease HTN (hypertension) Sister Pre-diabetes Brother Leukemia Son In good health Daughter In good health Daughter In good health Social History Household Members: Family Housing: Apartment Alcohol intake: never Patient Tobacco Use Status: Never used Tobacco e-Cigarette/Vaping Use: Never Used Second Hand Smoke Exposure: No service: No Current occupational status: disabled Cognitive needs: No Hearing needs: No Vision needs: No Physical Exam Vital Signs: Last Vital Signs Temp 97.8 F 06/09/23 12:47 Pulse 93 06/09/23 12:47 BP 112/70 06/09/23 12:47 Pulse Ox 97 06/09/23 12:47 Oxygen Delivery Method Room Air 06/09/23 12:47 BMI result Body Mass Index 29.3 HEENT Other: Left ear: Wax present. Office Procedures Cerumen Removal From which ear canal was the cerumen removed: left Removal: irrigation and cerumen loop/spoon Notes: no complications [id number] Wax Removal by Spoon/Curette Assessment & Plan Assessment & Plan (1) Impacted cerumen of left ear: Comment: USE DEBROX PRESCRIBED, RTC MON OR TUE FOR EAR LAVAGE. Code(s): H61.22 - Impacted cerumen, left ear Plan: Wax removed. Orders: Orders AMB Cerumen Removal Today H61.22 - Impacted cerumen, left ear Coding Level of Care Code Est Pt Level 3 (87927) Diagnoses Impacted cerumen of left ear H61.22 CPT Codes Office Procedure - CPT: 51015-Glr Wax Removal by Spoon/Curette ([id number])
[2023-06-09 12:47] VITALS: BP 112/70; PULSE 93; TEMP 36.6; O2SAT 97; BMI 29.3
== END 2023-06-09 13:06 | disposition home or self-care (01) ==
PROVIDERS: PCP Internal Medicine; Visit Provider Internal Medicine
DX: H61.22 Impacted cerumen, left ear (principal)
CPT/HCPCS: 69210; 99213

== ENCOUNTER 2024-01-23 11:29 | Outpatient (AMB) | payer MEDICARE, MEDICAID, SELFPAY ==
--- NOTE | 2024-01-23 11:34 | A.OFFVIS_ITS ---
Vital Signs 01/23/24 12:04 Height 5 ft Weight 141 lb 15.643 oz BMI 27.7 BP 126/78 Blood Pressure Location Rt brachial Position Sitting Pulse 94 Pulse Source Pulse Oximeter Pulse Oximetry (%) 98 Oxygen Delivery Method Room Air Intake Visit Reasons: Follow up pt requested appt Intake Note: Annette presents in office today for a requested FUV. CC; Pt reports that she has been developing worsening sx since her last visit. Pt has not been able to take the liquid medication as she has been vomiting the medication back up. Pt reports she is still experiencing frequent diarrhea and bloating as well as B/L UQ pain. Pt states their pain is about 8/10. Treatment Coordinator Required: Yes Treatment Coordinator Services: Treatment Coordinator Offered & Declined Accompanied by: Family/Other Allergies lisinopril Allergy (Severe, Verified 02/20/24 09:58) Swelling metformin Allergy (Intermediate, Verified 02/20/24 09:58) Intolerance, chest pain, high BP, diarrhea pantoprazole Allergy (Intermediate, Verified 02/20/24 09:58) rash quetiapine Allergy (Intermediate, Verified 02/20/24 09:58) chest pain orange juice Allergy (Intermediate, Uncoded 02/04/24 10:34) gerd HPI HPI Follow up pt requested appt : Details: Assessment & Plan (1) Post-cholecystectomy syndrome: Code(s): K91.5 - Postcholecystectomy syndrome (2) Dementia: Code(s): F03.90 - Unspecified dementia, unspecified severity, without behavioral disturbance, psychotic disturbance, mood disturbance, and anxiety Qualifiers: Alzheimer's disease onset: early-onset Dementia behavioral disturbance: without behavioral disturbance Dementia type: Alzheimer's Qualified Code(s): G30.0 - Alzheimer's disease with early onset; F02.80 - Dementia in other diseases classified elsewhere without behavioral disturbance (3) GERD (gastroesophageal reflux disease): Code(s): K21.9 - Gastro-esophageal reflux disease without esophagitis Qualifiers: Esophagitis presence: esophagitis presence not specified Qualified Code(s): K21.9 - Gastro-esophageal reflux disease without esophagitis Plan Albanian # dtr in law translates per pt request. She has 2 female family members with her today and they are supportive. She says that she no diarrhea, but she has a stomach ache from the pills. It seems she has not been moving her bowels now, so we will completely stop the carafate (in fact all the cic meds) until she has a BM then restart them at 1 loperimide twice a day and the bentyl only. Patient is happy because she did not like taking the Carafate liquid because of taste. ROV 2 weeks. Patient Instructions: Si no treviño defecado, suspenda todos los medicamentos para el estre?imiento, loperimida, carafato y diciclomina hasta que defeque. Luego reiniciar s?lo la loperimida 1 tableta dos veces al d?a y la diciclomina. ?NO USE EL CARAFATE, DETENGA ESTO TOTALMENTE! Quiero verte en 2 semanas para adam c?mo funciona esto. CORRESPONDENCE On 01/21/24 @ 09:17 Mirian Forman Wrote To Lang,October Patient's daughter called because she was supposed to follow up in 2 weeks, but not sure what happened with f/u appt. PT is not feeling well. Added for this Monday 01/22. TODAY'S VISIT The patient has been lost follow-up since 05/2023. SHE WAS LAST ON DEXILANT, DICYCLOMINE, and simethicone. We had stopped the carafate to help with the pill burden and r/t CIC. She started feeling poorly in October of 2023 with increased belching, stomach ache, nausea and severe CIC moving her bowels only about once q 3 weeks. She had this problem in the past, and since then she also started Ozempic which could handily explain all of her worsening sx. The only other new medicine is asa 81mg. ROV 3 weeks. [facility] Medical History Shortness of breath Chest pain Fissure in skin of foot Impacted cerumen of left ear Dyspepsia Cyst of skin Left shoulder pain Diabetes mellitus Hospital discharge follow-up Medicare annual wellness visit, subsequent Cellulitis of left leg Dementia Retinitis pigmentosa of both eyes GERD (gastroesophageal reflux disease) Obesity (BMI 30-39.9) Vitamin D deficiency Dyslipidemia Hypertension Diabetic polyneuropathy associated with type 2 diabetes mellitus Diabetic nephropathy associated with type 2 diabetes mellitus Diabetes type 2, uncontrolled Surgical History History of esophagogastroduodenoscopy (EGD) H/O colonoscopy Hx of cholecystectomy Hx of tubal ligation Hx of hernia repair Family History Father No problems noted. Mother Heart disease HTN (hypertension) Sister Pre-diabetes Brother Leukemia Son In good health Daughter In good health Daughter In good health Social History Household Members: Family Housing: Apartment Alcohol intake: never Patient Tobacco Use Status: Never used Tobacco e-Cigarette/Vaping Use: Never Used Second Hand Smoke Exposure: No service: No Current occupational status: disabled Cognitive needs: No Hearing needs: No Vision needs: No Review of Systems Const Denies fatigue, Denies fever(s), Denies night sweats, Denies poor appetite and Denies weight loss ENT Reports Normal hearing present, Denies dental pain, Denies dysphagia, Denies hearing loss, Denies mouth pain, Denies odynophagia, Denies throat swelling, Denies tongue swelling and Reports other (Dentition adequate) Card Reports leg edema Resp Reports no additional complaints GI Details: Denies abdominal pain, Denies melena, Reports bloating, Denies hematochezia, Denies constipation, Reports GI cramping, Denies dysphagia, Denies excessive flatus, Denies early satiety, Reports heartburn, Denies diarrhea, Reports nausea, Denies odynophagia, Reports vomiting and Denies hematemesis Skin/Breast Denies pruritus, Denies lesions, Denies rash and Denies jaundice Neuro Reports Normal hearing present and Denies Abnormal speech present Endo Denies fatigue Aller/Immun Denies throat swelling and Denies tongue swelling Physical Exam Vital Signs: Last Vital Signs Pulse 94 01/23/24 12:04 BP 126/78 01/23/24 12:04 Pulse Ox 98 01/23/24 12:04 Oxygen Delivery Method Room Air 01/23/24 12:04 BMI result Body Mass Index 27.7 Const General: cooperative, no acute distress, well developed and well groomed Nutritional Appearance: average body habitus and well nourished Orientation/consciousness: oriented to person, oriented to place and oriented to time Limitations: language barrier HEENT Head: Yes normocephalic and Yes atraumatic Eyes General: appearance normal, both eyes and all related structures Pupils: Equal, round and reactive pupils present Neck Neck: Yes normal visual inspection and Yes no lymphadenopathy Thyroid: Thyroid normal Resp Effort & Inspection: normal respiratory effort and able to speak in complete sentences Auscultation: clear to auscultation bilaterally Cardio Rate: regular rate Rhythm: regular rhythm Heart sounds: Normal, physiologic split S2 sound present Peripheral pulses: radial pulses present and posterior tibial pulses present GI Inspection: No distended and No Abdominal panniculus present Palpation (GI): Soft to palpation, nontender, no guarding, not rigid and No hepatosplenomegaly present Percussion: Yes normal to percussion Auscultation: normal bowel sounds Rectal Exam - Female: deferred Skin General skin exam: no rashes or lesions noted, turgor normal, skin not dry, no jaundice, No spider nevi and no striae Rashes: no rashes Nails: normal Neuro General: oriented to person, oriented to place and oriented to time Cranial nerves: Yes Equal, round and reactive pupils present and Yes Normal hearing present Speech: No Abnormal speech present Extrem General: Yes normal to inspection, No clubbing, No cyanosis and No edema Psych Appearance: grossly normal and well kempt Mental Status: mental status grossly normal Speech and movement: Normal speech and movement present Affect: normal affect Attitude: cooperative Thought process: Normal thought process present and not confabulating Thought content: Normal thought content present Insight: Limited insight present (Psych) Judgement: Limited judgement present (Psych) Assessment & Plan Assessment & Plan (1) GERD (gastroesophageal reflux disease): Code(s): K21.9 - Gastro-esophageal reflux disease without esophagitis Category: Medical Qualifiers: Esophagitis presence: esophagitis presence not specified Qualified Code(s): K21.9 - Gastro-esophageal reflux disease without esophagitis (2) Dementia: Code(s): F03.90 - Unspecified dementia, unspecified severity, without behavioral disturbance, psychotic disturbance, mood disturbance, and anxiety Category: Medical Qualifiers: Alzheimer's disease onset: early-onset Dementia behavioral disturbance: without behavioral disturbance Dementia type: Alzheimer's Qualified Code(s): G30.0 - Alzheimer's disease with early onset; F02.80 - Dementia in other diseas es classified elsewhere without behavioral disturbance (3) Nausea and vomiting: Code(s): R11.2 - Nausea with vomiting, unspecified Category: Medical (4) Chronic idiopathic constipation: Code(s): K59.04 - Chronic idiopathic constipation Category: Medical (5) Lower extremity edema: Code(s): R60.0 - Localized edema Category: Medical (6) Fatigue: Code(s): R53.83 - Other fatigue Category: Medical (7) Mitral murmur: Code(s): I34.0 - Nonrheumatic mitral (valve) insufficiency Category: Medical Plan The patient has been lost follow-up since 05/2023. SHE WAS LAST ON DEXILANT, DICYCLOMINE, and simethicone. We had stopped the carafate to help with the pill burden and r/t CIC. She started feeling poorly in October of 2023 with increased belching, stomach ache, nausea and severe CIC moving her bowels only about once q 3 weeks. She had this problem in the past, and since then she also started Ozempic which could h andily explain all of her worsening sx. The only other new medicine is asa 81mg. ROV 3 weeks. Orders: Referrals Cardiology Referral R60.0 - Localized edema, R53.83 - Other fatigue, I34.0 - Nonrheumatic mitral (valve) insufficiency Medications: New metoclopramide HCl (Reglan) 5 mg PO QIDACHS 120 tabs 6RF R11.2 - Nausea with vomiting, unspecified, K59.04 - Chronic idiopathic constipation Refilled simethicone (Gas Relief (simethicone)) 180 mg PO BID PRN 180 caps 1RF abdominal distention 90 days On Hold dexlansoprazole Hold Comment: Doctor's Order 60 mg PO DAILY 30 caps 2RF dicyclomine Hold Comment: Doctor's Order 20 mg PO QID 30 days 120 tabs 2RF dexlansoprazole Hold Comment: Doctor's Order 60 mg PO DAILY 30 caps 6RF dicyclomine Hold Comment: Doctor's Order 20 mg PO QID 30 days 120 tabs 6RF Coding Level of Care Code Est Pt Level 3 (34716) Diagnoses Gastroesophageal reflux disease, unspecified whether esophagitis present K21.9 Esophagitis presence: esophagitis presence not specified Early onset Alzheimer's dementia without behavioral disturbance G30.0; F02.80 Alzheimer's disease onset: early-onset Dementia behavioral disturbance: without behavioral disturbance Dementia type: Alzheimer's Nausea and vomiting R11.2 Chronic idiopathic constipation K59.04 Lower extremity edema R60.0 Fatigue R53.83 Mitral murmur I34.0
[2024-01-23 12:04] VITALS: BP 126/78; PULSE 94; O2SAT 98; BMI 27.7
== END 2024-01-23 12:30 | disposition home or self-care (01) ==
PROVIDERS: PCP Internal Medicine; Visit Provider Nurse Practitioner
DX: K21.9 Gastro-esophageal reflux disease without esophagitis (principal); G30.0 Alzheimer's disease with early onset; F02.80 Dementia in other diseases classified elsewhere, unspecified severity, without behavioral disturbance, psychotic disturbance, mood disturbance, and anxiety; R11.2 Nausea with vomiting, unspecified; K59.04 Chronic idiopathic constipation; R60.0 Localized edema; R53.83 Other fatigue; I34.0 Nonrheumatic mitral (valve) insufficiency
CPT/HCPCS: 99213

== ENCOUNTER → 2024-01-23 11:29 | Outpatient (BNVA) | payer MEDICARE, MEDICAID, SELFPAY | PROVIDERS: PCP Internal Medicine; Visit Provider Nurse Practitioner | DX: K21.9 Gastro-esophageal reflux disease without esophagitis (principal); K59.04 Chronic idiopathic constipation; R11.2 Nausea with vomiting, unspecified; R60.0 Localized edema; R53.83 Other fatigue; I34.0 Nonrheumatic mitral (valve) insufficiency; G30.0 Alzheimer's disease with early onset; F02.80 Dementia in other diseases classified elsewhere, unspecified severity, without behavioral disturbance, psychotic disturbance, mood disturbance, and anxiety | CPT/HCPCS: 99212 ==

== ENCOUNTER 2024-01-28 14:15 | Outpatient (AMB) | payer MEDICARE, MEDICAID, SELFPAY ==
[2024-01-28 14:38] VITALS: BP 124/70; PULSE 105
--- NOTE | 2024-01-28 14:38 | A.OFFVIS_ITS ---
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 Pt c/o CP and SOB Reserve Operator Required: No Reserve Operator Services: Reserve Operator Present Reserve Operator Name: Dionicio/Occitan Plant Biology Professor: Plant Biology Professor Present Accompanied by: Daughter Allergies lisinopril Allergy (Severe, Verified 01/23/24 12:02) Swelling metformin Allergy (Intermediate, Verified 01/23/24 12:00) Intolerance, chest pain, high BP, diarrhea pantoprazole Allergy (Intermediate, Verified 01/23/24 12:00) rash quetiapine Allergy (Intermediate, Verified 01/23/24 12:00) chest pain orange juice Allergy (Intermediate, Uncoded 06/04/23 10:28) gerd Medication List - Last Reconciled 01/28/24 by Juliana Sadler NP acetaminophen (Tylenol) 325 mg PO QID PRN adhesive tape (Band-Aid Paper Tape) As directed amlodipine 5 mg PO DAILY aspirin (Adult Low Dose Aspirin) 81 mg PO DAILY atorvastatin 40 mg PO DAILY blood sugar diagnostic (FreeStyle Lite Strips) 3 times a day 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 meter (FreeStyle Lite Meter kit) 3 times a day chlorthalidone 25 mg PO DAILY cholecalciferol (vitamin D3) 25 mcg PO DAILY dexlansoprazole 60 mg PO DAILY dicyclomine 20 mg PO QID 30 days dulaglutide (Trulicity) 0.5 mg subcut QWEEK empagliflozin (Jardiance) 25 mg PO QAM ezetimibe 10 mg PO DAILY 90 days gauze bandage (Band-Aid Gauze Pads) As directed glipizide ER 10 mg PO DAILY 90 days lancets (FreeStyle Lancets) 3 times a day loperamide (Imodium A-D) 2 mg PO BID metoclopramide HCl (Reglan) 5 mg PO QIDACHS omega-3 fatty acids-fish oil 300-1,000 mg 1 cap PO BID [personal wipes As directed] simethicone (Gas Relief (simethicone)) 180 mg PO BID PRN 90 days tramadol 50 mg PO BID PRN 30 days [wheelchair As directed] HPI Comments Details: 68-year-old female presents today for a new patient visit. She reports she has been having chest pain on exertion, swelling in her ankles, and fatigue. She has a history of dementia, anemia, diabetes, hypertension, dyslipdidemia. She is accompanied by her daughter and her granddaughter who are interpreting - form signed. She is sedentary and reports her blood sugars are still high but improving. [facility] Medical History (Updated 01/28/24 @ 15:15 by Juliana Sadler NP) Shortness of breath Chest pain Fissure in skin of foot Impacted cerumen of left ear Dyspepsia Cyst of skin Left shoulder pain Diabetes mellitus Hospital discharge follow-up Medicare annual wellness visit, subsequent Cellulitis of left leg Dementia Retinitis pigmentosa of both eyes GERD (gastroesophageal reflux disease) Obesity (BMI 30-39.9) Vitamin D deficiency Dyslipidemia Hypertension Diabetic polyneuropathy associated with type 2 diabetes mellitus Diabetic nephropathy associated with type 2 diabetes mellitus Diabetes type 2, uncontrolled Surgical History History of esophagogastroduodenoscopy (EGD) H/O colonoscopy Hx of cholecystectomy Hx of tubal ligation Hx of hernia repair Family History Father No problems noted. Mother Heart disease HTN (hypertension) Sister Pre-diabetes Brother Leukemia Son In good health Daughter In good health Daughter In good health Social History Household Members: Family Housing: Apartment Alcohol intake: never Patient Tobacco Use Status: Never used Tobacco e-Cigarette/Vaping Use: Never Used Second Hand Smoke Exposure: No service: No Current occupational status: disabled Cognitive needs: No Hearing needs: No Vision needs: No Review of Systems Const Denies chills, Denies daytime sleepiness, Denies fatigue, Denies fever(s), Denies lethargy, Denies snoring, Denies stops breathing during sleep, Denies weight gain, Denies weight loss and Denies other Eyes Denies loss of vision ENT Reports hearing loss Card Reports chest pain, Denies irregular heart rhythm, Denies claudication, Denies leg edema, Denies lightheadedness, Denies palpitations, Denies dyspnea, Reports dyspnea on exertion, Denies orthopnea and Reports other Resp Denies cough, Denies excessive phlegm production, Denies dyspnea, Reports dyspnea on exertion and Denies snoring GI Denies abdominal pain, Denies hematochezia, Denies change in bowel habits, Denies nausea and Denies vomiting Denies dysuria Musc Denies arthralgias, Denies muscle weakness and Denies numbness Skin/Breast Reports as per HPI, Denies nail changes and Denies rash Neuro Reports confusion, Denies loss of vision, Denies memory loss and Denies numbness Psych Reports anxiety, Reports confusion, Denies depression and Denies memory loss Endo Denies fatigue and Denies palpitations Eric/Lymph Denies easy bruising Physical Exam Vital Signs: Last Vital Signs Pulse 105 H 01/28/24 14:38 BP 124/70 01/28/24 14:38 Const General: confusion Orientation/consciousness: confusion HEENT Head: Yes normal to inspection Eyes General: appearance normal, both eyes and all related structures Neck Neck: Yes normal visual inspection Chest Chest palpation & inspection: normal inspection of the chest Resp Effort & Inspection: normal respiratory effort Auscultation: clear to auscultation bilaterally Cardio Jugular venous distension: no JVD Palpation: normal PMI Rate: regular rate Rhythm: regular rhythm Heart sounds: S1 normal heart sound present, S2 normal heart sound present, no click, no gallops, Murmur heart sound present systolic and no rubs GI Inspection: Yes normal to inspection Palpation (GI): Soft to palpation Skin General skin exam: no rashes or lesions noted Neuro General: confusion Extrem General: Yes normal to inspection Psych Appearance: grossly normal Office Procedures EKG Details: EKG today. Sinus Tachycardia. Nonspecific T wave abnormality. Rate 107 bpm. QRS 70 ms. QTc 451 ms. [id number], Complete Assessment & Plan Assessment & Plan (1) Chest pain: Code(s): R07.9 - Chest pain, unspecified Category: Medical (2) Hypertension: Code(s): I10 - Essential (primary) hypertension Category: Medical Qualifiers: Hypertension type: essential hypertension Qualified Code(s): I10 - Essential (primary) hypertension (3) Diabetes type 2, uncontrolled: Code(s): E11.65 - Type 2 diabetes mellitus with hyperglycemia Category: Medical Qualifiers: Glycemic state: with hyperglycemia Qualified Code(s): E11.65 - Type 2 diabetes mellitus with hyperglycemia Plan Multiple risk factors for CAD; hypertension, hyperlipidemia, obesity, and diabetes. Will obtain lexiscan stress test to assess for ischemia Patient is not claustiphobic. Echocardiogram to assess for structure. Tight blood glucose control discussed. Blood pressure within limits today. Orders: Orders CA lexiscan stress w yosef 01/28/24 R06.02 - Shortness of breath, R07.9 - Chest pain, unspecified CA echo transthoracic complete 01/28/24 R06.02 - Shortness of breath, R07.9 - Chest pain, unspecified NM cardiolite stress test 01/28/24 R06.02 - Shortness of breath, R07.9 - Chest pain, unspecified Coding Level of Care Code New Pt Level 4 (87274) Diagnoses Chest pain R07.9 Essential hypertension I10 Hypertension type: essential hypertension Uncontrolled type 2 diabetes mellitus with hyperglycemia E11.65 Glycemic state: with hyperglycemia CPT Codes EKG - CPT: 24154-[id number], Complete ([id number])
== END 2024-01-28 15:29 | disposition home or self-care (01) ==
PROVIDERS: PCP Internal Medicine; Visit Provider Nurse Practitioner
DX: R07.9 Chest pain, unspecified (principal); I10 Essential (primary) hypertension; E11.65 Type 2 diabetes mellitus with hyperglycemia
CPT/HCPCS: 93010; 99214

== ENCOUNTER → 2024-01-28 14:15 | Outpatient (BNVA) | payer MEDICARE, MEDICAID, SELFPAY | PROVIDERS: PCP Internal Medicine; Visit Provider Nurse Practitioner | DX: I10 Essential (primary) hypertension (principal); E11.65 Type 2 diabetes mellitus with hyperglycemia; R07.9 Chest pain, unspecified; R06.02 Shortness of breath | CPT/HCPCS: 93005; 99212 ==

== ENCOUNTER 2024-02-03 10:47 | Outpatient (REF) | payer MEDICARE, SELFPAY | END 2024-02-03 10:48 | disposition home or self-care (01) | LOC: HO.MAMMO 10:47 | PROVIDERS: PCP Internal Medicine; Visit Provider Internal Medicine | DX: Z12.31 Encounter for screening mammogram for malignant neoplasm of breast (principal) | CPT/HCPCS: 77063; 77067 ==

== ENCOUNTER → 2024-02-03 11:45 | Outpatient (BNV) | payer MEDICARE, SELFPAY | PROVIDERS: PCP Internal Medicine; Visit Provider Radiology Diagnostic Radiology | DX: Z12.31 Encounter for screening mammogram for malignant neoplasm of breast (principal) | CPT/HCPCS: 77063; 77067 ==

== ENCOUNTER 2024-02-04 09:56 | Outpatient (AMB) | payer MEDICARE, MEDICAID, SELFPAY ==
--- NOTE | 2024-02-04 10:17 | A.OFFPC_ITS ---
Vital Signs 02/04/24 10:18 Height 5 ft Weight 141 lb 6 oz BMI 27.6 BP 128/80 Blood Pressure Location Lt brachial Position Sitting Pulse 94 Pulse Source Pulse Oximeter Pulse Oximetry (%) 99 Oxygen Delivery Method Room Air Intake Visit Reasons: DM Follow up Electro Mechanical Technician Required: No Accompanied by: Daughter Allergies lisinopril Allergy (Severe, Verified 02/04/24 10:34) Swelling metformin Allergy (Intermediate, Verified 02/04/24 10:34) Intolerance, chest pain, high BP, diarrhea pantoprazole Allergy (Intermediate, Verified 02/04/24 10:34) rash quetiapine Allergy (Intermediate, Verified 02/04/24 10:34) chest pain orange juice Allergy (Intermediate, Uncoded 02/04/24 10:34) gerd Medication List - Last Reconciled 02/04/24 by Anabela Thompson MD acetaminophen (Tylenol) 325 mg PO QID PRN adhesive tape (Band-Aid Paper Tape) As directed amlodipine 5 mg PO DAILY aspirin (Adult Low Dose Aspirin) 81 mg PO DAILY atorvastatin 40 mg PO DAILY blood sugar diagnostic (FreeStyle Lite Strips) 3 times a day 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 meter (FreeStyle Lite Meter kit) 3 times a day chlorthalidone 25 mg PO DAILY cholecalciferol (vitamin D3) 25 mcg PO DAILY dexlansoprazole 60 mg PO DAILY dicyclomine 20 mg PO QID 30 days dulaglutide (Trulicity) 0.5 mg subcut QWEEK empagliflozin (Jardiance) 25 mg PO QAM ezetimibe 10 mg PO DAILY 90 days gauze bandage (Band-Aid Gauze Pads) As directed glipizide ER 10 mg PO DAILY 90 days lancets (FreeStyle Lancets) 3 times a day loperamide (Imodium A-D) 2 mg PO BID metoclopramide HCl (Reglan) 5 mg PO QIDACHS omega-3 fatty acids-fish oil 300-1,000 mg 1 cap PO BID [personal wipes As directed] simethicone (Gas Relief (simethicone)) 180 mg PO BID PRN 90 days tramadol 50 mg PO BID PRN 30 days [wheelchair As directed] Tobacco use date assessed: 02/04/24 Fall risk assessment: 1 Fall in past year (1 month ago) Last assessed Fall Risk: 02/04/24 Dental Screening Dental Screen Date: 02/04/24 Did you have a dental visit in the last 12 months?: No Did you have a dental problem in the last 6 months where you did not have access to dental care?: No Was dental information given to patient?: No (no teeth) HPI HPI Comments History of Present Illness Details This is a 68-year-old female with diabetes mellitus type 2, hypertension and dementia that comes today accompanied by computer meteorologist which is her daughter complaining of lumbar pain that does not radiate to the limbs and started few weeks ago. No fever, bowel or bladder incontinence. She also has vaginal pain and went to ER in [place] few weeks ago and told her that she has a vaginal cyst. She does complain about vaginal tenderness in the outside right side. Will be referred to OBGYN. She also has abdominal bloating and an epigastric mass palpable that is tender. A1c is elevated and I will start her on insulin. I will also increase Trulicity. Blood pressure stable. Dementia with no significant change. Few weeks ago was cleaning her ear with a cotton and a piece of cotton is still stuck in the left ear and is not able to be fl [facility]. Will be referred to ENT. [facility] Medical History (Updated 02/04/24 @ 11:49 by Anabela Thompson MD) Shortness of breath Chest pain Fissure in skin of foot Impacted cerumen of left ear Dyspepsia Cyst of skin Left shoulder pain Diabetes mellitus Hospital discharge follow-up Medicare annual wellness visit, subsequent Cellulitis of left leg Dementia Retinitis pigmentosa of both eyes GERD (gastroesophageal reflux disease) Obesity (BMI 30-39.9) Vitamin D deficiency Dyslipidemia Hypertension Diabetic polyneuropathy associated with type 2 diabetes mellitus Diabetic nephropathy associated with type 2 diabetes mellitus Diabetes type 2, uncontrolled Surgical History History of esophagogastroduodenoscopy (EGD) H/O colonoscopy Hx of cholecystectomy Hx of tubal ligation Hx of hernia repair Family History Father No problems noted. Mother Heart disease HTN (hypertension) Sister Pre-diabetes Brother Leukemia Son In good health Daughter In good health Daughter In good health Social History Household Members: Family Housing: Apartment Alcohol intake: never Patient Tobacco Use Status: Never used Tobacco e-Cigarette/Vaping Use: Never Used Second Hand Smoke Exposure: No service: No Current occupational status: disabled Cognitive needs: No Hearing needs: No Vision needs: No Questionnaire PHQ-9 Over the last 2 weeks, how often have you been bothered by any of the following problems? 1. Little interest or pleasure in doing things: not at all 2. Feeling down, depressed, or hopeless: not at all 3. Trouble falling or staying asleep, or sleeping too much: not at all 4. Feeling tired or having little energy: not at all 5. Poor appetite or overeating: not at all 6. Feeling bad about yourself - or that you are a failure or have let yourself or your family down: not at all 7. Trouble concentrating on things, such as reading the newspaper or watching television: not at all 8. Moving or speaking so slowly that other people could have noticed. Or the opposite - being so fidgety or restless that you have been moving around a lot more than usual: not at all 9. Thoughts that you would be better off or of hurting yourself in some way: not at all Total score: 0 Depression Screening Interpretation: Negative Depression Screening Done: Yes 91747 - PHQ-9 Billing: Yes Source: Developed by Drs. Jean Francis, Prisca Drew, Eliseo Suarez and colleagues, with an educational logan from [place]. Thrive Questionnaire Date Thrive assessed: 02/04/24 I am a: Patient What is your living situation today?: I have a steady place to live Within the past 12 months, did the food you bought not last and you didn't have the money to get more?: Never true Within the past 12 months, did you worry whether your food would run out before you got money to buy more?: Never true Do you have trouble paying for medicines?: No Do you have trouble getting transportation to medical appointments?: No Do you have trouble paying your heating and electricity bill?: No Do you have trouble taking care of your child, family member or friend?: No Do you have trouble with day-to-day activities such as bathing, preparing meals, shopping, managing finances, etc.?: No Are you currently unemployed and looking for a job?: No Are you interested in more education?: No Please select the resources that you would like help with: None Currently or been in a relationship where the following occur: No concerns reported THRIVE Score: 0 AUDIT C Alcohol Use Questionnaire (AUDIT-C) 1. How often do you have a drink containing alcohol?: Never 3. How often do you have six or more drinks on one occasion?: Never Total Score: 0 KALIE-7 AMB Questionnaire KALIE-7 Date KALIE - 7 assessed: 02/04/24 Feeling nervous, anxious, or on edge: 0 = Not at all Not being able to stop or control worryin = Not at all Worrying too much about different things: 0 = Not at all Trouble relaxin = Not at all Being so restless that it is hard to sit still: 0 = Not at all Becoming easily annoyed or irritable: 0 = Not at all Feeling afraid as if something awful might happen: 0 = Not at all Total KALIE-7 score (0-4 normal; 5-9 mild; 10-14 moderate; 15-21 severe): 0 Source: Developed by Drs. Jean Francis, Prisca Drew, Eliseo Suarez and colleagues, with an educational logan from [place]. KALIE-7 Assessment Billing KALIE-7 Assessment Tool: KALIE-7 Assessment 54686 Review of Systems Const All systems reviewed & are unremarkable except as noted in HPI and below Card Denies chest pain at rest, Denies chest pain with activity, Denies edema, Denies irregular heart rhythm, Denies claudication, Denies dyspnea, Denies dyspnea on exertion, Denies orthopnea, Denies paroxysmal nocturnal dyspnea and Denies slow heart rate Resp Denies cough, Denies dyspnea and Denies dyspnea on exertion GI Reports abdominal pain and Reports bloating Denies urinary incontinence, Denies urinary hesitancy and Denies urinary urgency Musc Reports back pain, Denies atrophy, Denies deformity and Denies limited range of motion Physical exam (Primary Care) Vital Signs: Last Vital Signs Pulse 94 02/04/24 10:18 BP 128/80 02/04/24 10:18 Pulse Ox 99 02/04/24 10:18 Oxygen Delivery Method Room Air 02/04/24 10:18 BMI result Body Mass Index 27.6 BMI Assessment/Plan discussion: High BMI High, discussed plan: lifestyle, weight reduction, dietary and physical activity Tobacco/Smoking Status: Tobacco use Status Tobacco use date assessed 02/04/24 02/04/24 10:24 Patient Tobacco Use Status Never used Tobacco 02/04/24 10:24 e-Cigarette/Vaping Use Never Used 02/04/24 10:24 PHQ-9: PHQ-9 Score PHQ-9: Total score 0 02/04/24 10:38 Depression Screening Interpretation: Negative Thrive Assessment: Date of Thrive Assessment Date Thrive assessed 02/04/24 02/04/24 10:24 Currently or been in a relationship where the following occur: No concerns reported HENMT Ears: hearing grossly normal bilaterally and other (small piece of cotton in left ear) Eyes Other: bilateral blindness Resp Effort & Inspection: normal respiratory effort Auscultation: clear to auscultation bilaterally Cardio Jugular venous distension: no JVD Rate: regular rate Rhythm: regular rhythm Heart sounds: S1 normal heart sound present and S2 normal heart sound present Bruits: Abdominal aortic bruit present GI Inspection: Yes distended Palpation (GI): Abdominal aortic bruit present, Tenderness to palpation present (GI) in the epigastrum and Palpable mass present epigastric firm Auscultation: normal bowel sounds External Female Exam: externally tender Back/Spine/Pelvis Thoracic/Lumbar Spine: lumbar spinal tenderness Extrem General: Yes full ROM Results AMB Hemoglobin A1c AMB Hemoglobin A1c 10.8 % Last Edit by ZULEMA Harris on 02/04/24 10:39 Results Reviewed Results Reviewed: Laboratory Last Values Hgb A1c (Clinic) 10.8 % (4.0-6.0) H 02/04/24 10:38 Assessment and Plan Assessment & Plan (1) Lumbar pain: Code(s): M54.50 - Low back pain, unspecified Plan: X-ray ordered. (2) Dementia: Code(s): F03.90 - Unspecified dementia, unspecified severity, without behavioral disturbance, psychotic disturbance, mood disturbance, and anxiety Qualifiers: Dementia type: Alzheimer's Alzheimer's disease onset: early-onset Dementia behavioral disturbance: without behavioral disturbance Qualified Code(s): G30.0 - Alzheimer's disease with early onset; F02.80 - Dementia in other diseases classified elsewhere without behavioral disturbance Plan: Continue family support. (3) Diabetes type 2, uncontrolled: Code(s): E11.65 - Type 2 diabetes mellitus with hyperglycemia Qualifiers: Glycemic state: with hyperglycemia Qualified Code(s): E11.65 - Type 2 diabetes mellitus with hyperglycemia Plan: Continue Jardiance and glipizide. Increase Trulicity. Start Lantus. A1c goal is equal or less than 7%. (4) Hypertension: Code(s): I10 - Essential (primary) hypertension Qualifiers: Hypertension type: essential hypertension Qualified Code(s): I10 - Essential (primary) hypertension Plan: Continue amlodipine. Blood pressure goal is equal or less than 130/80. (5) Foreign body in left ear: Code(s): T16.2XXA - Foreign body in left ear, initial encounter Qualifiers: Encounter type: initial encounter Qualified Code(s): T16.2XXA - Foreign body in left ear, initial encounter Plan: Referred to ENT. (6) Vaginal pain: Code(s): R10.2 - Pelvic and perineal pain Plan: Referred to OBGYN. (7) Abdominal pain: Code(s): R10.9 - Unspecified abdominal pain Qualifiers: Abdominal location: epigastric Qualified Code(s): R10.13 - Epigastric pain Plan: Ultrasound ordered. Orders: Orders XR lumbar spine 2-3V Today M54.50 - Low back pain, unspecified Lipid Panel Today E78.5 - Hyperlipidemia, unspecified Complete Blood Count Auto Diff Today D64.9 - Anemia, unspecified IRON PROFILE Today D64.9 - Anemia, unspecified Microalbumin, Random (w Creat) Today E11.9 - Type 2 diabetes mellitus without complications US abdomen complete Today R10.9 - Unspecified abdominal pain US pelvic and transvaginal Today R10.2 - Pelvic and perineal pain AMB Hemoglobin A1c Today E11.21 - Type 2 diabetes mellitus with diabetic nephropathy Vitamin D 25-OH Total Today E55.9 - Vitamin D deficiency, unspecified Vitamin B12 and Folate Today E53.8 - Deficiency of other specified B group vitamins Comprehensive [place]. Panel Fast Today E11.65 - Type 2 diabetes mellitus with hyperglycemia XR chest 2V Today R22.2 - Localized swelling, mass and lump, trunk Referrals Ear/Nose/Throat Referral T16.2XXA - Foreign body in left ear, initial encounter [facility] OFFBEARER Referral R10.2 - Pelvic and perineal pain Medications: New insulin glargine (Lantus Solostar U-100 Insulin) 10 units (0.1 mL) subcut QPM 9 mL 1RF 90 days E11.65 - Type 2 diabetes mellitus with hyperglycemia pen needle, diabetic (Comfort EZ Pen Swink) Use 1 pen needle once a day 100 ea 3RF E11.65 - Type 2 diabetes mellitus with hyperglycemia dulaglutide (Trulicity) 1.5 mg (0.5 mL) subcut QWEEK 6.5 mL 1RF 90 days E11.65 - Type 2 diabetes mellitus with hyperglycemia Coding Level of Care Code Est Pt Level 4 (35447) Complex EM visit Add On G2211 Diagnoses Lumbar pain M54.50 Early onset Alzheimer's dementia without behavioral disturbance G30.0; F02.80 Dementia type: Alzheimer's Alzheimer's disease onset: early-onset Dementia behavioral disturbance: without behavioral disturbance Uncontrolled type 2 diabetes mellitus with hyperglycemia E11.65 Glycemic state: with hyperglycemia Essential hypertension I10 Hypertension type: essential hypertension Foreign body of left ear, initial encounter T16.2XXA Encounter type: initial encounter Vaginal pain R10.2 Epigastric pain R10.13 Abdominal location: epigastric Additional Codes KALIE-7 Assessment Billing - KALIE-7 Assessment Tool: KALIE-7 Assessment [id number] ([id number]) Time Spent (min) 25
[2024-02-04 10:18] VITALS: BP 128/80; PULSE 94; O2SAT 99; BMI 27.6
== END 2024-02-04 10:49 | disposition home or self-care (01) ==
PROVIDERS: PCP Internal Medicine; Visit Provider Internal Medicine
DX: E11.21 Type 2 diabetes mellitus with diabetic nephropathy (principal); E11.65 Type 2 diabetes mellitus with hyperglycemia; G30.0 Alzheimer's disease with early onset; M54.50 Low back pain, unspecified; I10 Essential (primary) hypertension; T16.2XXA Foreign body in left ear, initial encounter; R10.2 Pelvic and perineal pain; R10.13 Epigastric pain
CPT/HCPCS: 83036; 99214; G2211

== ENCOUNTER 2024-02-04 10:56 | Outpatient (REF) | payer MEDICARE, SELFPAY ==
--- NOTE | ~2024-02-04 | XR_ITS ---
EXAMINATION: XR LUMBOSACRAL SPINE CLINICAL INFORMATION: Reason for Exam M54.50 - Low back pain, unspecified COMPARISON: Lumbar spine radiographs 10/13/2017 TECHNIQUE: 3 views of the lumbar spine FINDINGS: 5 nonrib-bearing lumbar-type vertebral bodies. Vertebral body heights are maintained. Grade 1 anterolisthesis of L5 on S1, new from prior. Multilevel degenerative disc disease worse at L5-S1 where there is moderate loss of disc space height and facet arthropathy which is progressed from remote priors. Atherosclerosis of the abdominal aorta. Right upper quadrant cholecystectomy clips. A 4.6 cm popcorn like calcification in the left hemipelvis which demonstrates increasing calcification with respect to remote priors which may reflect a calcifying myoma which could be confirmed with pelvic ultrasound. XR/XR lumbar spine 2-3V IMPRESSION: 1. Grade 1 anterolisthesis of L5 on S1, new from prior. 2. Multilevel degenerative disc disease worse at L5-S1 where there is moderate loss of disc space height and facet arthropathy which is progressed from remote priors. 3. A 4.6 cm popcorn like calcification in the left hemipelvis which demonstrates increasing calcification with respect to remote priors which may reflect a calcifying myoma which could be confirmed with pelvic ultrasound.
--- NOTE | ~2024-02-04 | XR_ITS ---
EXAMINATION: XR CHEST CLINICAL INFORMATION: Reason for Exam R22.2 - Localized swelling, mass and lump, trunk COMPARISON: Chest radiograph 08/27/2017 TECHNIQUE: 2 views of the chest FINDINGS: Lines and tubes: Right upper quadrant cholecystectomy clips. Clear lungs. No pleural effusion. No pneumothorax. Unchanged cardiomediastinal silhouette. XR/XR chest 2V IMPRESSION: * Clear lungs.
[2024-02-04 11:15] LABS: MANUAL DIFF FLAG NO
[2024-02-04 11:29] LABS: Basophils Percent Auto 0.3 % (0-2); Eosinophils Absolute Auto 0.1 X10*3/uL (0.0-0.4); Eosinophils Percent Auto 1.5 % (0-4); Hematocrit 38.1 % (37.0-47.0); Hemoglobin 11.9 g/dl (12.0-16.0); Imm Gran Abs Auto 0.02 X10*3/uL (0.00-0.03); Imm Gran Pct Auto 0.3 % (0.0-0.4); Lymphocytes Absolute Auto 1.2 X10*3/uL (1.2-4.9); Lymphocytes Percent Auto 20.3 % (20-40); Mean Corpuscular HGB Conc 31.2 g/dl (31.0-35.0); Mean Corpuscular Hemoglobin 24.5 pg (27.0-33.0); Mean Corpuscular Volume 78.4 fL (80.0-98.0); Mean Platelet Volume 10.8 fL (9.4-12.3); Monocytes Absolute Auto 0.3 X10*3/uL (0.1-1.2); Monocytes Percent Auto 5.3 % (2-11); Neutrophils Absolute Auto 4.3 x10*3/uL (2.0-8.3); Neutrophils Percent Auto 72.3 % (45-73); Platelet Count 172 X10*3/uL (160-400); Red Blood Count 4.86 X10*6/uL (4.20-5.50)
[2024-02-04 12:16] LABS: Creatinine Urine 67.79 mg/dL; Microalbum/Creatinine Ratio Ur 190.2 ug/mg cr (<30)
[2024-02-04 12:30] LABS: Alanine Aminotransferase 15 U/L (0-31); Albumin Level 4.4 g/dL (3.5-5.0); Alkaline Phosphatase 68 U/L (39-117); Anion Gap 13 (12-20); Aspartate Amino Transferase 14 U/L (5-31); Bilirubin Total 0.5 mg/dL (0.0-1.0); Blood Urea Nitrogen 19 mg/dL (9-16); Calcium 10.2 mg/dL (8.4-10.2); Carbon Dioxide 26 mmol/L (22-29); Chloride 108 mmol/L (96-108); Cholesterol 159 mg/dL (<200); Estimated Glomerular Filt Rate > 60; Glucose Fasting 148 mg/dL (60-99); HDL Cholesterol 37 mg/dL (>40); Iron 55 mcg/dL (30-160); LDL Cholesterol Calculated 88 mg/dL (<100); Percent Iron Saturation 23 % (15-50); Sodium 143 mmol/L (135-145); Total Iron Binding Capacity 241 mcg/dL (228-428); Total Protein 8.1 g/dL (6.5-8.0); Triglycerides 170 mg/dL (<150); Unsaturated Iron Binding 186 ug/dL
[2024-02-04 12:39] LABS: Vitamin D 25-OH Total 46.3 ng/mL (>30)
[2024-02-04 12:52] LABS: Folate 13.6 ng/mL (> or = 4.0); Vitamin B12 675 pg/mL (200-900)
== END 2024-02-04 10:57 | disposition home or self-care (01) ==
LOC: HO.XRAY 10:56
PROVIDERS: PCP Internal Medicine; Visit Provider Internal Medicine
DX: R22.2 Localized swelling, mass and lump, trunk (principal); E78.5 Hyperlipidemia, unspecified; E11.9 Type 2 diabetes mellitus without complications; E53.8 Deficiency of other specified B group vitamins; D64.9 Anemia, unspecified; E55.9 Vitamin D deficiency, unspecified; E11.65 Type 2 diabetes mellitus with hyperglycemia; M54.50 Low back pain, unspecified
CPT/HCPCS: 36415; 71046; 72100; 80053; 80061; 82043; 82306; 82570; 82607; 82746; 83540; 85025

== ENCOUNTER 2024-02-13 10:48 | Outpatient (REF) | payer MEDICARE, MEDICAID, SELFPAY ==
--- NOTE | ~2024-02-13 | XR_ITS ---
EXAMINATION: XR ABDOMEN WITH DECUBITUS VIEWS CLINICAL INDICATION: Epigastric pain COMPARISON: CT abdomen and pelvis 08/23/2017 TECHNIQUE: KUB FINDINGS: Bowel gas pattern is nonspecific with scattered stool. Lower anterior abdominal wall mesh is present. There is a calcified density in the left pelvis uterine fibroid. The uterus is deviated to the left on the CT. Under greatest view there is no free air or free fluid seen. The gallbladder has been surgically removed. There is mild spondylosis at the L3-4 disc level. XR/XR abdomen w decubitus IMPRESSION: Guided stool without obstruction. Stable uterine calcified fibroid. Preliminary results were performed by Dr. Ghasasn Heck on 02/13/2024 at 1:19 PM. Electronically signed by: Patrick Phan MD 04/11/2024 05:55 PM EDT
== END 2024-02-13 10:49 | disposition home or self-care (01) ==
LOC: HO.XRAY 10:48
PROVIDERS: PCP Internal Medicine; Visit Provider Nurse Practitioner
DX: R10.13 Epigastric pain (principal); K21.9 Gastro-esophageal reflux disease without esophagitis; G30.0 Alzheimer's disease with early onset; F02.80 Dementia in other diseases classified elsewhere, unspecified severity, without behavioral disturbance, psychotic disturbance, mood disturbance, and anxiety; R11.2 Nausea with vomiting, unspecified; K59.04 Chronic idiopathic constipation; R60.0 Localized edema; R53.83 Other fatigue; I34.0 Nonrheumatic mitral (valve) insufficiency
CPT/HCPCS: 74021; 99212

== ENCOUNTER 2024-02-13 10:48 | Outpatient (AMB) | payer MEDICARE, MEDICAID, SELFPAY ==
--- NOTE | 2024-02-13 10:52 | A.OFFVIS_ITS ---
Vital Signs 02/13/24 10:59 Height 5 ft Weight 138 lb 14.259 oz BMI 27.1 BP 128/71 Blood Pressure Location Lt brachial Position Sitting Pulse 102 H Intake Visit Reasons: 3 week follow up Intake Note: Annette in office today in follow up of abdominal pain. CC: Patient c/o abdominal pain, a lot of gas, constipation, and nausea. 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 We had stopped the carafate to help with the pill burden and r/t CIC. She started feeling poorly in October of 2023 with increased belching, stomach ache, nausea and severe CIC moving her bowels only about once q 3 weeks. She had this problem in the past, and since then she also started Ozempic which could handily explain all of her worsening sx. The only other new medicine is asa 81mg. ROV 3 weeks. Assessment & Plan (1) GERD (gastroesophageal reflux disease): Code(s): K21.9 - Gastro-esophageal reflux disease without esophagitis Category: Medical Qualifiers: Esophagitis presence: esophagitis presence not specified Qualified Code(s): K21.9 - Gastro-esophageal reflux disease without esophagitis (2) Dementia: Code(s): F03.90 - Unspecified dementia, unspecified severity, without behavioral disturbance, psychotic disturbance, mood disturbance, and anxiety Category: Medical Qualifiers: Dementia type: Alzheimer's Alzheimer's disease onset: early-onset Dementia behavioral disturbance: without behavioral disturbance Qualified Code(s): G30.0 - Alzheimer's disease with early onset; F02.80 - Dementia in other diseases classified elsewhere without behavioral disturbance (3) Nausea and vomiting: Code(s): R11.2 - Nausea with vomiting, unspecified Category: Medical (4) Chronic idiopathic constipation: Code(s): K59.04 - Chronic idiopathic constipation Category: Medical (5) Lower extremity edema: Code(s): R60.0 - Localized edema Category: Medical (6) Fatigue: Code(s): R53.83 - Other fatigue Category: Medical (7) Mitral murmur: Code(s): I34.0 - Nonrheumatic mitral (valve) insufficiency Category: Medical Orders: Referrals Cardiology Referral I34.0 - Nonrheumatic mitral (valve) insufficiency, R53.83 - Other fatigue, R60.0 - Localized edema Medications: New metoclopramide HCl (Reglan) 5 mg PO QIDACHS 120 tabs 6RF K59.04 - Chronic idiopathic constipation, R11.2 - Nausea with vomiting, unspecified Refilled simethicone (Gas Relief (simethicone)) 180 mg PO BID 90 days PRN 180 caps 1RF abdominal distention On Hold dexlansoprazole Hold Comment: Doctor's Order 60 mg PO DAILY 30 caps 2RF dicyclomine Hold Comment: Doctor's Order 20 mg PO QID 30 days 120 tabs 2RF CORRESPONDENCE On 01/21/24 @ 09:17 Mirian Forman Wrote To Patient's daughter called because she was supposed to follow up in 2 weeks, but not sure what happened with f/u appt. PT is not feeling well. Added for this Monday 01/22. Laboratory Tests 02/04/24 02/04/24 10:38 11:14 WBC 6.0 Plt Count 172 Hgb A1c (Clinic) 10.8 H Total Bilirubin 0.5 AST 14 ALT 15 Alkaline Phosphatase 68 TODAY'S VISIT Estonian # dtr translates per pt request She is accompanied by her dtr and granddtr who are supportive. She still has epigastric pain and severe belching with N/V. She has not passed any stool despite stopping the bentyl and imodium. Will get abd XR to eval stool panel stat and rx senna. Reglan at 5mg qid not helping but no a/e. Will increase to 10mg qidachs. She saw her PCP who ordered some labs and US of abd. She has an appt to see cardiology for her murmur next week as well. ROV next week. [facility] Medical History Shortness of breath Chest pain Fissure in skin of foot Impacted cerumen of left ear Dyspepsia Cyst of skin Left shoulder pain Diabetes mellitus Hospital discharge follow-up Medicare annual wellness visit, subsequent Cellulitis of left leg Dementia Retinitis pigmentosa of both eyes GERD (gastroesophageal reflux disease) Obesity (BMI 30-39.9) Vitamin D deficiency Dyslipidemia Hypertension Diabetic polyneuropathy associated with type 2 diabetes mellitus Diabetic nephropathy associated with type 2 diabetes mellitus Diabetes type 2, uncontrolled Surgical History History of esophagogastroduodenoscopy (EGD) H/O colonoscopy Hx of cholecystectomy Hx of tubal ligation Hx of hernia repair Family History Father No problems noted. Mother Heart disease HTN (hypertension) Sister Pre-diabetes Brother Leukemia Son In good health Daughter In good health Daughter In good health Social History Household Members: Family Housing: Apartment Alcohol intake: never Patient Tobacco Use Status: Never used Tobacco e-Cigarette/Vaping Use: Never Used Second Hand Smoke Exposure: No service: No Current occupational status: disabled Cognitive needs: No Hearing needs: No Vision needs: No Review of Systems Const Denies fatigue, Denies fever(s), Denies night sweats, Reports poor appetite and Denies weight loss ENT Reports Normal hearing present, Denies dental pain, Denies dysphagia, Denies hearing loss, Denies mouth pain, Denies odynophagia, Denies throat swelling, Denies tongue swelling and Reports other (Dentition adequate) Card Reports no additional complaints Resp Reports no additional complaints GI Details: Reports abdominal pain, Denies melena, Denies bloating, Denies hematochezia, Reports constipation, Denies GI cramping, Denies dysphagia, Denies excessive flatus, Denies early satiety, Reports heartburn, Denies diarrhea, Reports nausea, Denies odynophagia, Denies vomiting and Denies hematemesis Skin/Breast Denies pruritus, Denies lesions, Denies rash and Denies jaundice Neuro Reports Normal hearing present and Denies Abnormal speech present Endo Denies fatigue Aller/Immun Denies throat swelling and Denies tongue swelling Physical Exam Vital Signs: Last Vital Signs Pulse 102 H 02/13/24 10:59 BP 128/71 02/13/24 10:59 BMI result Body Mass Index 27.1 Const General: cooperative, no acute distress, well developed and well groomed Nutritional Appearance: average body habitus and well nourished Orientation/consciousness: oriented to person, oriented to place and oriented to time Limitations: No language barrier HEENT Head: Yes normocephalic and Yes atraumatic Eyes General: appearance normal, both eyes and all related structures Pupils: Equal, round and reactive pupils present Neck Neck: Yes normal visual inspection and Yes no lymphadenopathy Thyroid: Thyroid normal Resp Effort & Inspection: normal respiratory effort and able to speak in complete sentences Auscultation: clear to auscultation bilaterally Cardio Rate: regular rate Rhythm: regular rhythm Heart sounds: Normal, physiologic split S2 sound present Peripheral pulses: radial pulses present and posterior tibial pulses present GI Inspection: Yes distended and No Abdominal panniculus present Palpation (GI): Soft to palpation, Tenderness to palpation present (GI) in the epigastrum, no guarding, not rigid and No hepatosplenomegaly present Percussion: Yes normal to percussion Auscultation: normal bowel sounds Rectal Exam - Female: deferred Skin General skin exam: no rashes or lesions noted, turgor normal, skin not dry, no jaundice, No spider nevi and no striae Rashes: no rashes Nails: normal Neuro General: oriented to person, oriented to place and oriented to time Cranial nerves: Yes Equal, round and reactive pupils present and Yes Normal hearing present Speech: No Abnormal speech present Extrem General: Yes normal to inspection, No clubbing, No cyanosis and No edema Psych Appearance: grossly normal and well kempt Mental Status: mental status grossly normal Speech and movement: Normal speech and movement present Affect: normal affect Attitude: cooperative Thought process: Normal thought process present and not confabulating Thought content: Normal thought content present Insight: Limited insight present (Psych) Judgement: Limited judgement present (Psych) Assessment & Plan Assessment & Plan (1) Abdominal pain: Code(s): R10.9 - Unspecified abdominal pain Category: Medical Qualifiers: Abdominal location: epigastric Qualified Code(s): R10.13 - Epigastric pain (2) Chronic idiopathic constipation: Code(s): K59.04 - Chronic idiopathic constipation Category: Medical (3) Nausea and vomiting: Code(s): R11.2 - Nausea with vomiting, unspecified Category: Medical (4) Post-cholecystectomy syndrome: Code(s): K91.5 - Postcholecystectomy syndrome Category: Medical (5) Mitral murmur: Code(s): I34.0 - Nonrheumatic mitral (valve) insufficiency Category: Medical (6) GERD (gastroesophageal reflux disease): Code(s): K21.9 - Gastro-esophageal reflux disease without esophagitis Category: Medical Qualifiers: Esophagitis presence: esophagitis presence not specified Qualified Code(s): K21.9 - Gastro-esophageal reflux disease without esophagitis Plan Estonian # granddtr translates per pt request She is accompanied by her dtr and granddtr who are supportive. She still has epigastric pain and severe belching with N/V. She has not passed any stool despite stopping the bentyl and imodium. Will get abd XR to eval stool panel stat and rx senna. Reglan at 5mg qid not helping but no a/e. Will increase to 10mg qidachs. She saw her PCP who ordered some labs and US of abd. She has an appt to see cardiology for her murmur next week as well. ROV next week. Orders: Orders XR abdomen w decubitus 02/13/24 ISABEL Hernandez R10.13 - Epigastric pain Medications: New metoclopramide HCl (Reglan) 10 mg PO QIDACHS 120 tabs 3RF ISABEL Hernandez R11.2 - Nausea with vomiting, unspecified sennosides (Senna Laxative) 8.6 mg PO BEDTIME 60 tabs 6RF ISABEL Hernandez R10.13 - Epigastric pain Refilled dexlansoprazole 60 mg PO DAILY 30 caps 6RF Chana Lang, ANP-C Resumed dexlansoprazole 60 mg PO DAILY 30 caps 2RF October, ANP-C dicyclomine 20 mg PO QID 30 days 120 tabs 2RF Anabela Thompson MD dexlansoprazole 60 mg PO DAILY 30 caps 6RF October, ANP-C dicyclomine 20 mg PO QID 30 days 120 tabs 6RF October, ANP-C Coding Level of Care Code Est Pt Level 3 (34377) Diagnoses Epigastric pain R10.13 Abdominal location: epigastric Chronic idiopathic constipation K59.04 Nausea and vomiting R11.2 Post-cholecystectomy syndrome K91.5 Mitral murmur I34.0 Gastroesophageal reflux disease, unspecified whether esophagitis present K21.9 Esophagitis presence: esophagitis presence not specified
[2024-02-13 10:59] VITALS: BP 128/71; PULSE 102; BMI 27.1
== END 2024-02-13 11:34 | disposition home or self-care (01) ==
PROVIDERS: PCP Internal Medicine; Visit Provider Nurse Practitioner
DX: R10.13 Epigastric pain (principal); K59.04 Chronic idiopathic constipation; R11.2 Nausea with vomiting, unspecified; K91.5 Postcholecystectomy syndrome; I34.0 Nonrheumatic mitral (valve) insufficiency; K21.9 Gastro-esophageal reflux disease without esophagitis
CPT/HCPCS: 99213

== ENCOUNTER 2024-02-17 09:16 | Outpatient (REF) | payer MEDICARE, MEDICAID, SELFPAY ==
--- NOTE | ~2024-02-17 | US_ITS ---
EXAMINATION: US ABDOMEN COMPLETE CLINICAL INFORMATION: Unspecified abdominal pain. COMPARISON: X-ray abdomen 02/13/2024 and 01/26/2016. CT abdomen and pelvis 08/23/2017. TECHNIQUE: Real-time imaging of the abdominal viscera. FINDINGS: PANCREAS: Normal. ABDOMINAL AORTA: The proximal, mid, and distal segments are normal in caliber. INFERIOR VENA CAVA: Visualized portions are normal. LIVER: The liver is normal in size. The liver contour is normal. Parenchymal echogenicity is heterogeneous but not increased. No focal hepatic lesion. There is no intrahepatic biliary duct dilatation seen. GALLBLADDER: Surgically absent. COMMON BILE DUCT: Normal in caliber measuring 0.9 cm in diameter. RIGHT KIDNEY: Multiple benign Bosniak class I renal cysts are noted, the largest measuring 2.0 cm which require no additional imaging or follow-up. No solid renal masses are seen. No hydronephrosis or renal calculi. The kidney measures 10.5 cm in maximum dimension. LEFT KIDNEY: A benign 0.7 cm lower pole Bosniak class I renal cyst is noted which requires no additional imaging or follow up. No solid renal masses are seen. No hydronephrosis or renal calculi. The kidney measures 9.2 cm in maximum dimension. SPLEEN: Normal. The spleen measures 10.1 cm in maximum dimension. FREE FLUID: None. US/US abdomen complete IMPRESSION: A cause for the patient's abdominal pain has not been found.
--- NOTE | ~2024-02-17 | US_ITS ---
EXAMINATION: US PELVIS CLINICAL INFORMATION: Pelvic and perineal pain. COMPARISON: CT abdomen and pelvis 08/23/2017. TECHNIQUE: Ultrasound of the pelvis is performed using both transabdominal and transvaginal transducers along with Doppler. Transvaginal imaging is performed due to inadequate visualization transabdominally. FINDINGS: Uterus: The uterus is anteverted and measures 7.4 x 6.8 x 6.5 cm. Previously seen submucosal fibroid with multiple calcifications present on the 08/03/2017 CT scan is not appreciated on this exam. The double wall endometrial thickness is 5 mm. Of note, there is an echogenic polypoid mass present in the endometrial cavity measuring 1.0 x 1.4 x 0.8 cm. Adnexa: Neither ovary was seen. No free fluid present. US/US pelvic and transvaginal IMPRESSION: 1.4 cm polypoid mass in the endometrial cavity. Further evaluation with hysteroscopy or hysterosonography is recommended.
== END 2024-02-17 09:17 | disposition home or self-care (01) ==
LOC: HO.US 09:16
PROVIDERS: PCP Internal Medicine; Visit Provider Internal Medicine
DX: R10.9 Unspecified abdominal pain (principal); R10.2 Pelvic and perineal pain
CPT/HCPCS: 76700; 76830; 76856

== ENCOUNTER 2024-02-19 13:39 | Outpatient (AMB) | payer MEDICARE, SELFPAY ==
[2024-02-19 13:41] VITALS: BP 112/76; PULSE 100; O2SAT 97; BMI 26.8
--- NOTE | 2024-02-19 13:41 | HO.NEPHOV ---
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 Assistant Required: Yes Retail Store Assistant Name: Iveth [id number] Accompanied by: Daughter Allergies lisinopril Allergy (Severe, Verified 02/19/24 13:43) Swelling metformin Allergy (Intermediate, Verified 02/19/24 13:43) Intolerance, chest pain, high BP, diarrhea pantoprazole Allergy (Intermediate, Verified 02/19/24 13:43) rash quetiapine Allergy (Intermediate, Verified 02/19/24 13:43) chest pain orange juice Allergy (Intermediate, Uncoded 02/04/24 10:34) gerd Medication List - Last Reconciled 02/19/24 by German Vásquez MD acetaminophen (Tylenol) 325 mg PO QID PRN adhesive tape (Band-Aid Paper Tape) As directed amlodipine 10 mg PO DAILY aspirin (Adult Low Dose Aspirin) 81 mg PO DAILY atorvastatin 40 mg PO DAILY blood sugar diagnostic (FreeStyle Lite Strips) 3 times a day 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 meter (FreeStyle Lite Meter kit) 3 times a day chlorthalidone 25 mg PO DAILY cholecalciferol (vitamin D3) 25 mcg PO DAILY dexlansoprazole 60 mg PO DAILY dicyclomine 20 mg PO QID 30 days dulaglutide (Trulicity) 1.5 mg (0.5 mL) subcut QWEEK 90 days empagliflozin (Jardiance) 25 mg PO QAM ezetimibe 10 mg PO DAILY 90 days gauze bandage (Band-Aid Gauze Pads) As directed glipizide ER 10 mg PO DAILY 90 days insulin glargine (Lantus Solostar U-100 Insulin) 10 units (0.1 mL) subcut QPM 90 days lancets (FreeStyle Lancets) 3 times a day loperamide (Imodium A-D) 2 mg PO BID metoclopramide HCl (Reglan) 10 mg PO QIDACHS metoclopramide HCl (Reglan) 5 mg PO QIDACHS omega-3 fatty acids-fish oil 300-1,000 mg 1 cap PO BID pen needle, diabetic (Comfort EZ Pen [place]) Use 1 pen needle once a day [personal wipes As directed] sennosides (Senna Laxative) 8.6 mg PO BEDTIME simethicone (Gas Relief (simethicone)) 180 mg PO BID PRN 90 days tramadol 50 mg PO BID PRN 30 days [wheelchair As directed] HPI Comments Details: 68-year-old man with a history of longstanding diabetes mellitus. She has been referred for evaluation of microalbuminuria. Blind. History of diabetic polyneuropathy She was on lisinopril and developed swelling of the lips. She has no longer on DEBBY inhibitor due to angioedema. She was accompanied by her daughter. She has retinitis pigmentosa and is legally [facility] Medical History Shortness of breath Chest pain Fissure in skin of foot Impacted cerumen of left ear Dyspepsia Cyst of skin Left shoulder pain Diabetes mellitus Hospital discharge follow-up Medicare annual wellness visit, subsequent Cellulitis of left leg Dementia Retinitis pigmentosa of both eyes GERD (gastroesophageal reflux disease) Obesity (BMI 30-39.9) Vitamin D deficiency Dyslipidemia Hypertension Diabetic polyneuropathy associated with type 2 diabetes mellitus Diabetic nephropathy associated with type 2 diabetes mellitus Diabetes type 2, uncontrolled Surgical History History of esophagogastroduodenoscopy (EGD) H/O colonoscopy Hx of cholecystectomy Hx of tubal ligation Hx of hernia repair Family History Father No problems noted. Mother Heart disease HTN (hypertension) Sister Pre-diabetes Brother Leukemia Son In good health Daughter In good health Daughter In good health Social History Household Members: Family Housing: Apartment Alcohol intake: never Patient Tobacco Use Status: Never used Tobacco e-Cigarette/Vaping Use: Never Used Second Hand Smoke Exposure: No service: No Current occupational status: disabled Cognitive needs: No Hearing needs: No Vision needs: No Review of Systems Const Denies fever(s) and Denies weight loss Card Denies chest pain Resp Denies cough and Denies hemoptysis GI Denies abdominal pain, Denies diarrhea and Denies nausea Musc Denies back pain Neuro Denies focal weakness Physical Exam Vital Signs: Last Vital Signs Pulse 100 02/19/24 13:41 BP 112/76 02/19/24 13:41 Pulse Ox 97 02/19/24 13:41 Oxygen Delivery Method Room Air 02/19/24 13:41 BMI result Body Mass Index 26.8 Results Reviewed Nephrology Results: Hgb 11.9 g/dl (12.0-16.0) L 02/04/24 WBC 6.0 X10*3/uL (4.8-10.8) 02/04/24 Plt Count 172 X10*3/uL (160-400) 02/04/24 Sodium 143 mmol/L (135-145) 02/04/24 Potassium 4.0 mmol/L (3.3-5.1) 02/04/24 Chloride 108 mmol/L (96-108) 02/04/24 Carbon Dioxide 26 mmol/L (22-29) 02/04/24 BUN 19 mg/dL (9-16) H 02/04/24 Creatinine 0.89 mg/dL (0.5-1.4) 02/04/24 Calcium 10.2 mg/dL (8.4-10.2) 02/04/24 Urine Creatinine 67.79 mg/dL 02/04/24 Assessment & Plan Assessment & Plan (1) Microalbuminuria: Code(s): R80.9 - Proteinuria, unspecified Category: Medical (2) Diabetic nephropathy associated with type 2 diabetes mellitus: Code(s): E11.21 - Type 2 diabetes mellitus with diabetic nephropathy Category: Medical (3) Hypertension: Code(s): I10 - Essential (primary) hypertension Category: Medical Qualifiers: Hypertension type: essential hypertension Qualified Code(s): I10 - Essential (primary) hypertension Plan 68-year-old woman with a history of microalbuminuria most likely due to underlying diabetic kidney disease. Nondiabetic causes seem less likely at this point. Overall blood pressure is well controlled. Goal is to maintain blood pressure less than 130/80. Maintain hemoglobin A1c less than 7%. She we will benefit from DEBBY inhibition. However she has a history of angioedema with DEBBY inhibitors therefore I would avoid using DEBBY inhibitors or ARBs. We can certainly try using spironolactone or Tekturna for what it is worth. She will benefit from SGLT2 inhibitors and we will continue with Jardiance. Shall follow along with you. Thank you Orders: Orders Protein Electrophoresis, Serum Today R80.9 - Proteinuria, unspecified Total Protein Urine Random 3 Months R80.9 - Proteinuria, unspecified UA and rflx microscopic 3 Months R80.9 - Proteinuria, unspecified Creatinine Urine 3 Months R80.9 - Proteinuria, unspecified Coding Level of Care Code New Pt Level 4 (85542) Diagnoses Microalbuminuria R80.9 Diabetic nephropathy associated with type 2 diabetes mellitus E11.21 Essential hypertension I10 Hypertension type: essential hypertension
== END 2024-02-19 14:15 | disposition home or self-care (01) ==
PROVIDERS: PCP Internal Medicine; Referring Provider Internal Medicine; Visit Provider Internal Medicine Hypertension Specialist
DX: R80.9 Proteinuria, unspecified (principal); E11.21 Type 2 diabetes mellitus with diabetic nephropathy; I10 Essential (primary) hypertension
CPT/HCPCS: 99204

== ENCOUNTER → 2024-02-19 13:39 | Outpatient (BNVA) | payer MEDICARE, SELFPAY | PROVIDERS: PCP Internal Medicine; Referring Provider Internal Medicine; Visit Provider Internal Medicine Hypertension Specialist | DX: R80.9 Proteinuria, unspecified (principal); E11.65 Type 2 diabetes mellitus with hyperglycemia; E11.42 Type 2 diabetes mellitus with diabetic polyneuropathy; E11.21 Type 2 diabetes mellitus with diabetic nephropathy | CPT/HCPCS: 99202 ==

== ENCOUNTER 2024-02-20 09:39 | Outpatient (AMB) | payer MEDICARE, MEDICAID, SELFPAY ==
--- NOTE | 2024-02-20 09:45 | A.OFFVIS_ITS ---
Vital Signs 02/20/24 09:54 Height 5 ft Weight 135 lb 5.821 oz BMI 26.4 BP 133/75 Blood Pressure Location Lt brachial Position Sitting Pulse 99 Intake Visit Reasons: 1 week follow up Intake Note: Patient in office today in follow up Xray. CC: Patient reports that she continues having a lot of gas and loose stools. Per patient's daughter the patient is not feeling to well today because her mother yesterday. Newspaper Columnist Required: Yes Accompanied by: Daughter Allergies lisinopril Allergy (Severe, Verified 03/23/24 13:00) Swelling metformin Allergy (Intermediate, Verified 03/23/24 13:00) Intolerance, chest pain, high BP, diarrhea pantoprazole Allergy (Intermediate, Verified 03/23/24 13:00) rash quetiapine Allergy (Intermediate, Verified 03/23/24 13:00) chest pain orange juice Allergy (Intermediate, Uncoded 03/23/24 13:00) gerd HPI HPI 1 week follow up: Details: Assessment & Plan (1) Post-cholecystectomy syndrome: Code(s): K91.5 - Postcholecystectomy syndrome (2) Dementia: Code(s): F03.90 - Unspecified dementia, unspecified severity, without behavioral disturbance, psychotic disturbance, mood disturbance, and anxiety Qualifiers: Alzheimer's disease onset: early-onset Dementia behavioral disturbance: without behavioral disturbance Dementia type: Alzheimer's Qualified Code(s): G30.0 - Alzheimer's disease with early onset; F02.80 - Dementia in other diseases classified elsewhere without behavioral disturbance (3) GERD (gastroesophageal reflux disease): Code(s): K21.9 - Gastro-esophageal reflux disease without esophagitis Qualifiers: Esophagitis presence: esophagitis presence not specified Qualified Code(s): K21.9 - Gastro-esophageal reflux disease without esophagitis Plan [place]ian # dtr in law translates per pt request. She has 2 female family members with her today and they are supportive. She says that she no diarrhea, but she has a stomach ache from the pills. It seems she has not been moving her bowels now, so we will completely stop the carafate (in fact all the cic meds) until she has a BM then restart them at 1 loperimide twice a day and the bentyl only. Patient is happy because she did not like taking the Carafate liquid because of taste. ROV 2 weeks. Patient Instructions: Si no chisholm defecado, suspenda todos los medicamentos para el estre?imiento, loperimida, carafato y diciclomina hasta que defeque. Luego reiniciar s?lo la loperimida 1 tableta dos veces al d?a y la diciclomina. ?NO USE EL CARAFATE, DETENGA ESTO TOTALMENTE! Quiero verte en 2 semanas para adam c?mo funciona esto. TODAY'S VISIT Andreia Culver Her mother in [place] so the pt has been upset and this is effecting her stomach. For now, she is continuing on imodium, bentyl, reglan 10mg, and Dexilant. For now, we will watch and wait as she has multiple active issues effecting her stooling and stomach. She is reporting daily CHISHOLM and is emptying bottles of tylenol in a week. We discuss the toxicity of tylenol at high doses as the patient is not very good at knowing/remembering how much she takes. ROV 6 mos. She has multiple outstanding radiology tests not yet read [facility] Medical History (Updated 03/24/24 @ 14:40 by Juliana Sadler NP) Aortic stenosis Uncontrolled type 2 diabetes mellitus with hyperglycemia, with long-term current use of insulin Shortness of breath Chest pain Fissure in skin of foot Impacted cerumen of left ear Dyspepsia Cyst of skin Left shoulder pain Diabetes mellitus Hospital discharge follow-up Medicare annual wellness visit, subsequent Cellulitis of left leg Dementia Retinitis pigmentosa of both eyes GERD (gastroesophageal reflux disease) Obesity (BMI 30-39.9) Vitamin D deficiency Dyslipidemia Hypertension Diabetic polyneuropathy associated with type 2 diabetes mellitus Diabetic nephropathy associated with type 2 diabetes mellitus Diabetes type 2, uncontrolled Surgical History History of esophagogastroduodenoscopy (EGD) H/O colonoscopy Hx of cholecystectomy Hx of tubal ligation Hx of hernia repair Family History Father No problems noted. Mother Heart disease HTN (hypertension) Sister Pre-diabetes Brother Leukemia Son In good health Daughter In good health Daughter In good health Social History Household Members: Family Housing: Apartment Alcohol intake: never Patient Tobacco Use Status: Never used Tobacco e-Cigarette/Vaping Use: Never Used Second Hand Smoke Exposure: No service: No Current occupational status: disabled Cognitive needs: No Hearing needs: No Vision needs: No Review of Systems Const Denies fatigue, Denies fever(s), Reports headache(s), Denies night sweats, Denies poor appetite and Denies weight loss ENT Reports Normal hearing present, Denies dental pain, Denies dysphagia, Reports headache(s), Denies hearing loss, Denies mouth pain, Denies odynophagia, Denies throat swelling, Denies tongue swelling and Reports other (Dentition adequate) Card Reports no additional complaints Resp Reports no additional complaints GI Details: Denies abdominal pain, Denies melena, Denies bloating, Denies hematochezia, Reports constipation, Denies GI cramping, Denies dysphagia, Denies excessive flatus, Reports early satiety, Reports heartburn, Denies diarrhea, Reports nausea, Denies odynophagia, Denies vomiting and Denies hematemesis Skin/Breast Denies pruritus, Denies lesions, Denies rash and Denies jaundice Neuro Reports Normal hearing present, Denies Abnormal speech present and Reports headache(s) Endo Denies fatigue Aller/Immun Denies throat swelling and Denies tongue swelling Physical Exam Vital Signs: Last Vital Signs Pulse 99 02/20/24 09:54 BP 133/75 02/20/24 09:54 BMI result Body Mass Index 26.4 Const General: cooperative, no acute distress, well developed and well groomed Nutritional Appearance: average body habitus and well nourished Orientation/consciousness: oriented to person, oriented to place and oriented to time Limitations: language barrier HEENT Head: Yes normocephalic and Yes atraumatic Eyes General: appearance normal, both eyes and all related structures Pupils: Equal, round and reactive pupils present Neck Neck: Yes normal visual inspection and Yes no lymphadenopathy Thyroid: Thyroid normal Resp Effort & Inspection: normal respiratory effort and able to speak in complete sentences Auscultation: clear to auscultation bilaterally Cardio Rate: regular rate Rhythm: regular rhythm Heart sounds: Normal, physiologic split S2 sound present Peripheral pulses: radial pulses present and posterior tibial pulses present GI Inspection: No distended and No Abdominal panniculus present Palpation (GI): Soft to palpation, nontender, no guarding, not rigid and No hepatosplenomegaly present Percussion: Yes normal to percussion Auscultation: normal bowel sounds Rectal Exam - Female: deferred Skin General skin exam: no rashes or lesions noted, turgor normal, skin not dry, no jaundice, No spider nevi and no striae Rashes: no rashes Nails: normal Neuro General: oriented to person, oriented to place and oriented to time Cranial nerves: Yes Equal, round and reactive pupils present and Yes Normal hearing present Speech: No Abnormal speech present Extrem General: Yes normal to inspection, No clubbing, No cyanosis and No edema Psych Appearance: grossly normal and well kempt Mental Status: mental status grossly normal Speech and movement: Normal speech and movement present Affect: normal affect Attitude: cooperative Thought process: Normal thought process present and not confabulating Thought content: Normal thought content present Insight: Limited insight present (Psych) Judgement: Limited judgement present (Psych) Assessment & Plan Assessment & Plan (1) Chronic idiopathic constipation: Code(s): K59.04 - Chronic idiopathic constipation Category: Medical (2) Post-cholecystectomy syndrome: Code(s): K91.5 - Postcholecystectomy syndrome Category: Medical (3) GERD (gastroesophageal reflux disease): Code(s): K21.9 - Gastro-esophageal reflux disease without esophagitis Category: Medical Qualifiers: Esophagitis presence: esophagitis presence not specified Qualified Code(s): K21.9 - Gastro-esophageal reflux disease without esophagitis Plan [facility] Her mother in [place] so the pt has been upset and this is effecting her stomach. For now, she is continuing on imodium, bentyl, reglan 10mg, and Dexilant. For now, we will watch and wait as she has multiple active issues effecting her stooling and stomach. She is reporting daily CHISHOLM and is emptying bottles of tylenol in a week. We discuss the toxicity of tylenol at high doses as the patient is not very good at knowing/remembering how much she takes. JOSV 6 mos. She has multiple outstanding radiology tests not yet read Medications: Changed From metoclopramide HCl 10 mg PO QIDACHS 120 tabs 3RF R11.2 - Nausea with vomiting, unspecified To metoclopramide HCl (Reglan) dispense 10mg dose not 5mg 10 mg PO QIDACHS 120 tabs 6RF R11.2 - Nausea with vomiting, unspecified ISABEL Hernandez Refilled dicyclomine 20 mg PO QID 120 tabs 6RF 30 days October ISABEL Lang Resumed dicyclomine 20 mg PO QID 30 days 120 tabs 2RF Anabela Thompson MD loperamide (Imodium A-D) 2 mg PO BID 60 caps 6RF loose stool October WILIAN Lang F03.90 - Unspecified dementia, unspecified severity, without behavioral disturbance, psychotic disturbance, mood disturbance, and anxiety, K21.9 - Gastro-esophageal reflux disease without esophagitis, K91.5 - Postcholecystectomy syndrome dicyclomine 20 mg PO QID 120 tabs 6RF 30 days October ISABEL Lang Coding Level of Care Code Est Pt Level 3 (28892) Diagnoses Chronic idiopathic constipation K59.04 Post-cholecystectomy syndrome K91.5 Gastroesophageal reflux disease, unspecified whether esophagitis present K21.9 Esophagitis presence: esophagitis presence not specified
[2024-02-20 09:54] VITALS: BP 133/75; PULSE 99; BMI 26.4
== END 2024-02-20 10:28 | disposition home or self-care (01) ==
PROVIDERS: PCP Internal Medicine; Visit Provider Nurse Practitioner
DX: K59.04 Chronic idiopathic constipation (principal); K91.5 Postcholecystectomy syndrome; K21.9 Gastro-esophageal reflux disease without esophagitis
CPT/HCPCS: 99213

== ENCOUNTER → 2024-02-20 09:39 | Outpatient (BNVA) | payer MEDICARE, MEDICAID, SELFPAY | PROVIDERS: PCP Internal Medicine; Visit Provider Nurse Practitioner | DX: K91.5 Postcholecystectomy syndrome (principal); K21.9 Gastro-esophageal reflux disease without esophagitis; K59.04 Chronic idiopathic constipation; R19.7 Diarrhea, unspecified; G30.0 Alzheimer's disease with early onset; F02.80 Dementia in other diseases classified elsewhere, unspecified severity, without behavioral disturbance, psychotic disturbance, mood disturbance, and anxiety; R11.2 Nausea with vomiting, unspecified | CPT/HCPCS: 99212 ==

== ENCOUNTER → 2024-03-11 07:39 | Outpatient (REF) | payer MEDICARE, MEDICAID, SELFPAY ==
--- NOTE | ~2024-03-11 | NM_ITS ---
Myocardial perfusion study Indication: Chest pain to evaluate for myocardial ischemia Technique: The patient was brought in for a Lexiscan perfusion study on 03/11/2024. Patient performed low-level exercise and was injected 0.4 mg of Lexiscan intravenously. Within a minute of injection, 25 mCi of sestamibi was given intravenously. Images were obtained using the SPECT gamma camera interlaced with the gating device. Images were obtained in supine position. Resting perfusion study was performed on 03/15/2024. Patient was administered 25 mCi of sestamibi intravenously at rest. Images were then obtained in supine position. Images obtained with and without CT attenuation. Total DLP 138 mGy-cm. Images were processed with the software and compared side to side in short axis, horizontal long axis and vertical long axis views. Findings: The stress perfusion study showed both attenuated as well as non attenuated corrected images show normal uptake of radiotracer in all segments of LV myocardium. The gated study shows normal LV systolic function with visually estimated LVEF of greater than 60%. LV cavity is normal in size. The gated study shows normal systolic wall thickening and contraction of segments. Resting study shows attenuated corrected show normal uptake of tracer in all segments of LV myocardium. Gating at rest reveals normal systolic wall motion with ejection fraction at 57%. The findings are consistent with normal myocardial perfusion. NM/NM cardiolite stress test Impression: 1. Myocardial perfusion imaging study shows normal myocardial perfusion 2. Gated LVEF is 57% 3. Transient ischemic dilatation not present EKG is nondiagnostic for ischemia
--- NOTE | 2024-03-11 07:51 | CA_ITS ---
Transthoracic Echocardiogram Patient (Last, First, Middle): Annette Mills, Gender: Female Date of : 1955 Age: 68 Procedure Date: 03/11/2024 Procedure Type: Transthoracic Echocardiogram Location: OP Height: 162.56 cm Weight: 63.96 kg BSA: 1.69 m2 Heart Rate: bpm BP: 140 / 80 mmHg Dance Professor: TO Referring MD: Juliana Sadler ENVIRONMENTAL HEALTH SPECIALIST Symptoms: R07.9 - Chest pain, unspecified Study Quality: Adequate w contrast ECG Rhythm: Sinus Conclusions: - The left ventricular systolic function is normal. The visually estimated ejection fraction is between 65-70%. - There is moderate to severe aortic valve stenosis. Findings Procedure Information Contrast agent, definity, is being given per protocol without apparent complications. Left Ventricle Normal left ventricular cavity size. There is mildly increased left ventricular wall thickness. The left ventricular systolic function is normal. The visually estimated ejection fraction is between 65-70%. There is no evidence of regional wall motion abnormalities. Diastolic function is normal for age. Right Ventricle Normal right ventricular cavity size. There is low normal right ventricular systolic function. Atria Both atria are normal in size. Aortic Valve There is moderate calcification of the aortic valve. There is moderate to severe aortic valve stenosis. The peak aortic velocity is 3.31 m/s with a calculated peak gradient of 44 mmHg. The mean gradient is 26 mmHg. The aortic valve area is 0.78 cm2. There is no aortic valve regurgitation. Dimensionless index 0.28. Stroke volume index 31ml/m2. Mitral Valve There is mild anterior mitral leaflet thickening. There is no mitral valve regurgitation. There is no mitral valve stenosis. Pulmonic Valve The pulmonic valve is likely normal. Tricuspid Valve There is trace tricuspid valve regurgitation. Tricuspid regurgitation envelope is inadequate for calculation of right ventricular systolic pressure. Great Vessels The asc aorta is normal in size. Venous The inferior vena cava is normal in size and collapses greater than 50% with inspiration. Pericardium/Pleural There is no evidence of pericardial effusion. Prior Study Comparison Changes noted compared to prior study dated: 03/30/2016. Aortic stenosis present. Measurements 2D Linear Measurements IVSd: 1.26 0.6-0.9/0.6-1.0 cm LVIDd: 3.73 3.9-5.3/4.2-5.9 cm LVIDd Index: 2.21 2.4-3.2/2.2-3.1 cm/m2 LVIDs: 2.34 2.0-3.6 cm LVPWd: 1.05 0.7-1.1 cm LA Diam: 2.40 2.7-3.8/3.0-4.0 cm LAIDs Index: 1.42 1.5-2.3 cm/m2 LV Mass: 175.19 67-162/88-224 g LV Mass Index: 103.66 43-95/49-115 g/m2 LVOT Diam: 2.00 3.0+(-)1.3 cm 2D Systolic Function EF 4C: 58.90 >55% Mitral Valve MV Pk E: 0.72 MV PK A: 0.84 MV Decel Time: 193.00 E/A: 0.90 E'Lateral: 8.81 E'Medial: 4.90 E/E' Med: 14.80 E/E' Lat: 8.20 PHT: 57.00 MVA PHT: 3.86 Decel Hudspeth: 3.74 Aortic Valve AoV Pk Emery: 3.31 AoV Mn Emery: 2.44 AoV VTI: 0.68 AoV Pk Grad: 44.00 Aov Mn Grad: 26.00 HAILY Cont.VTI: 0.78 LVOT LVOT Pk Emery: 0.93 LVOT Mn Emery: 0.60 LVOT VTI: 0.17 LVOT Pk Grad: 3.00 LVOT Mn Grad: 2.00 LVOT Diam: 2.00 LVOT Area: 3.14 Diastolic Function MV Pk E: 0.72 MV Pk A: 0.84 E/A: 0.90 E'Medial: 4.90 E/E' Med: 14.80 E' Laterial: 8.81 E/E' Lat: 8.20 Right Ventricle TAPSE (mm): 16.10 TVS' Emery: 9.36 Tricuspid Valve RA Press: 3.00 Great Vessels Aorta Sinus of Valsalva: 3.01 2.0-3.5 cm Ao Asc: 3.50 2.1-3.4 cm Updated in Other Vendor System with Status of Final Monty Perez MD electronically signed on 03/13/2024 1:16:22 PM with status of Final
--- NOTE | 2024-03-11 07:51 | CA_ITS ---
Acquisition Time: 2024-03-11 09:26:38 Total Exercise Time: 00:02:00 Test Indications: chest pain,shortness of breath Medications: Protocol: LEXISCAN Max HR: 123 BPM 81% of Pred: 151 BPM Max BP: 130/068 mmHG Max Work Load: 1.0 METS Pharmacological stress test with Lexiscan injection while sitting and kicking, without anginal symptoms, with isolated PVCs, with normotensive response to exercise, with nondiagnoisitic EKGs. Aminophylline 75mg IVP given to reverse Lexiscan. Nuclear images pending. Test reviewed with Dr. Perez. Referred By: Juliana Sadler Overread By: Juliana Sadler
== END ==
LOC: HO.CARD 07:39
PROVIDERS: PCP Internal Medicine; Visit Provider Nurse Practitioner
DX: R07.9 Chest pain, unspecified (principal); R06.02 Shortness of breath
CPT/HCPCS: 78452; 93017; 93306; A9500; J0280; J2785; Q9957

== ENCOUNTER → 2024-03-11 07:51 | Outpatient (BNV) | payer MEDICARE, MEDICAID, SELFPAY | PROVIDERS: PCP Internal Medicine; Visit Provider Nurse Practitioner | DX: I35.0 Nonrheumatic aortic (valve) stenosis (principal); I35.8 Other nonrheumatic aortic valve disorders | CPT/HCPCS: 78452; 93016; 93018; 93320; 93350; 93352 ==

== ENCOUNTER 2024-03-23 12:49 | Outpatient (AMB) | payer MEDICARE, MEDICAID, SELFPAY ==
--- NOTE | 2024-03-23 12:55 | A.OFFVIS_ITS ---
Vital Signs 03/23/24 12:59 Height 5 ft Weight 139 lb 5.314 oz BMI 27.2 BP 130/70 Blood Pressure Location Rt brachial Position Sitting Pulse 94 Pulse Source Pulse Oximeter Intake Visit Reasons: DM/CONFIRMED Intake Note: Patient presents today to re-establish treatment for Type 2 Diabetes Mellitus: Last Diabetic eye exam was on: Legally Blind Last Podiatry exam was on: Does not see a Lab Support Service Tech Most recent HbA1c: 10.8%, 02/04/2024 Random Glucose- 151 mg/dL, Today Fish Housekeeper Required: Yes Fish Housekeeper Language: Flight Paramedic Services: Fish Housekeeper Present Fish Housekeeper Name: Michelle [id number] Information Interpreted: non-clinical & clinical Accompanied by: Daughter Allergies lisinopril Allergy (Severe, Verified 03/23/24 13:00) Swelling metformin Allergy (Intermediate, Verified 03/23/24 13:00) Intolerance, chest pain, high BP, diarrhea pantoprazole Allergy (Intermediate, Verified 03/23/24 13:00) rash quetiapine Allergy (Intermediate, Verified 03/23/24 13:00) chest pain orange juice Allergy (Intermediate, Uncoded 03/23/24 13:00) gerd HPI Comments Details: This is a 68-year-old female with a past medical history of dementia, uncontrolled type 2 diabetes, dyslipidemia, hypertension, obesity, GERD and chronic constipation presenting for diabetic management. She is with her daughter, Nicolette. Bahamian video conference interpreter used. She was last seen in the endocrinology department on 10/30/2021. The patient's hemoglobin A1c was checked in January, and it was 10.8%. Her PCP and increased Trulicity and started Lantus. Current medication regimen: Lantus 10 units nightly, glipizide ER 10 mg daily, Jardiance 25 mg, Trulicity 1.5 mg weekly. Intolerant to metformin which caused diarrhea, chest pain and elevated blood pressure. Her daughter tells me the medication changes are helping to lower her blood sugars. She did not have her Trulicity for about two months around which may account for some of the hyperglycemia. She forgot her glucometer today. AM readings per [id number]. No higher than this. Lowest 120 in the last two weeks. Compliance issues: She is legally blind, and she can't check her own CG with the glucometer. Diet: Breakfast-bread with butter and ham, water, chanell juice sometimes diet Lunch-depends on her appetite, small meal of salad Dinner-small amount of rice, beef, corn, beets Snacks/desserts: plums, melons, grapes Hypoglycemia symptoms: none Hyperglycemia symptoms: prior to med changes polyuria/polydipsia and dizzy Eye exam: legally blind, requests referral to eye doctor in [place] Microvascular complications: neuropathy, nephropathy (microalbumin) Macrovascular complications: none Hypertension: treated with amlodipine 10 mg, chlorthalidone 25 mg. Intolerant to DEBBY inhibitor which caused swelling. Hyperlipidemia: treated with atorvastatin 40 mg and Zetia 10 mg daily. LDL at goal <100. ROS: Constitutional: No unexplained weight loss, fever, chills, fatigue or night sweats. Respiratory: No shortness of breath, cough or sputum production. Cardiovascular: No chest pain, chest pressure or chest discomfort. No palpitations or pedal edema. Neurologic: No headache, dizziness, syncope, unilateral weakness Skin: No open wounds. Endocrine: No cold or heat intolerance. No polyuria or polydipsia. Physical exam: Constitutional: Alert, in no distress. Neck: Supple, Full range of motion. No lymphadenopathy. No palpable thyroid masses or thyromegaly. Respiratory: Clear to auscultation. Cardiovascular: S1 S2 regular. III/ systolic murmur. Neurologic: No focal neurological deficits. Extremities: Warm and well perfused. No clubbing, cyanosis or edema. Right foot: Warm and well perfused. No clubbing, cyanosis or edema. DP pulse 2+. Decreased vibratory sensation. Decreased sensation to monofilament. No open wounds. Left foot: Warm and well perfused. No clubbing, cyanosis or edema. DP pulse 2+. Decreased vibratory sensation. Decreased sensation to monofilament. No open wounds. [facility] Medical History (Updated 03/23/24 @ 13:04 by ANTONIO Beatty) Uncontrolled type 2 diabetes mellitus with hyperglycemia, with long-term current use of insulin Shortness of breath Chest pain Fissure in skin of foot Impacted cerumen of left ear Dyspepsia Cyst of skin Left shoulder pain Diabetes mellitus Hospital discharge follow-up Medicare annual wellness visit, subsequent Cellulitis of left leg Dementia Retinitis pigmentosa of both eyes GERD (gastroesophageal reflux disease) Obesity (BMI 30-39.9) Vitamin D deficiency Dyslipidemia Hypertension Diabetic polyneuropathy associated with type 2 diabetes mellitus Diabetic nephropathy associated with type 2 diabetes mellitus Diabetes type 2, uncontrolled Surgical History History of esophagogastroduodenoscopy (EGD) H/O colonoscopy Hx of cholecystectomy Hx of tubal ligation Hx of hernia repair Family History Father No problems noted. Mother Heart disease HTN (hypertension) Sister Pre-diabetes Brother Leukemia Son In good health Daughter In good health Daughter In good health Social History Household Members: Family Housing: Apartment Alcohol intake: never Patient Tobacco Use Status: Never used Tobacco e-Cigarette/Vaping Use: Never Used Second Hand Smoke Exposure: No service: No Current occupational status: disabled Cognitive needs: No Hearing needs: No Vision needs: No Physical Exam Vital Signs: BMI result Body Mass Index 27.2 Results Reviewed Results Reviewed: Laboratory Tests 02/04/24 02/04/24 02/04/24 10:38 11:10 11:14 Creatinine 0.89 Estimated GFR > 60 Hgb A1c (Clinic) 10.8 H Triglycerides 170 H Cholesterol 159 LDL Cholesterol, Calc 88 HDL Cholesterol 37 L Urine Creatinine 67.79 Urine Microalbumin 129.0 Microalb/Creat Ratio 190.2 H Assessment & Plan Assessment & Plan (1) Uncontrolled type 2 diabetes mellitus with hyperglycemia, with long-term current use of insulin: Code(s): E11.65 - Type 2 diabetes mellitus with hyperglycemia; Z79.4 - half-way (current) use of insulin Category: Medical (2) Diabetic nephropathy associated with type 2 diabetes mellitus: Code(s): E11.21 - Type 2 diabetes mellitus with diabetic nephropathy Category: Medical Plan In summary this is a 68-year-old female with type 2 diabetes now on basal bolus insulin in addition to Trulicity, Jardiance and glipizide. They report fasting glucose readings in the target range now. No hypoglycemia reported. If she develops hypoglycemia reviewed how to treat this and to contact the office. I would decrease or eliminate glipizide if she experiences hypoglycemia. Continue current medications. We will get her on freestyle Stephon 3 which is medically necessary to monitor for hypo and hyperglycemia on multiple antidiabetic agents including insulin. Patient is referred to the laser beam color scanner operator and dietitian. Refer to Ophthalmology. Will schedule short-term follow-up in 6 weeks to review CGM data. We reviewed diabetic diet. 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 Diabetes Education Referral E11.65 - Type 2 diabetes mellitus with hyperglycemia, Z79.4 - half-way (current) use of insulin Medications: New glucose (Dex4 Glucose) until symptoms of low blood sugar are controlled 16 grams (4 x 4 gram) PO Q15M PRN 60 tabs 1RF hypoglycemia 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 sensor (FreeStyle Stephon 3 Sensor device) apply new sensor every 14 days as directed 2 ea 11RF 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 meter,continuous (FreeStyle Stephon 3 Williamson) as directed 1 ea 0RF Coding Level of Care Code Est Pt Level 5 (37924) Diagnoses Uncontrolled type 2 diabetes mellitus with hyperglycemia, with long-term current use of insulin E11.65; Z79.4 Diabetic nephropathy associated with type 2 diabetes mellitus E11.21 Time Spent (min) 61 Comment Reviewing chart/labs, direct patient care, completing documentation
[2024-03-23 12:59] VITALS: BP 130/70; PULSE 94; BMI 27.2
[2024-03-23 13:15] LABS: Glucose, Whole Blood 151 mg/dL (60-115)
== END 2024-03-23 13:54 | disposition home or self-care (01) ==
PROVIDERS: PCP Internal Medicine; Visit Provider Physician Assistant Medical
DX: E11.65 Type 2 diabetes mellitus with hyperglycemia (principal); Z79.4 Long term (current) use of insulin; E11.21 Type 2 diabetes mellitus with diabetic nephropathy
CPT/HCPCS: 99215

== ENCOUNTER → 2024-03-23 12:49 | Outpatient (BNVA) | payer MEDICARE, MEDICAID, SELFPAY | PROVIDERS: PCP Internal Medicine; Visit Provider Physician Assistant Medical | DX: E11.65 Type 2 diabetes mellitus with hyperglycemia (principal); E11.21 Type 2 diabetes mellitus with diabetic nephropathy; Z79.4 Long term (current) use of insulin | CPT/HCPCS: 82947; 99212 ==

== ENCOUNTER 2024-03-24 12:34 | Outpatient (AMB) | payer MEDICARE, MEDICAID, SELFPAY ==
--- NOTE | 2024-03-24 12:48 | MHC.OFFVIS ---
Vital Signs 03/24/24 12:50 03/24/24 13:09 Height 5 ft Weight 136 lb 10.986 oz BMI 26.7 BP 122/60 Blood Pressure Location Lt brachial Position Sitting Pulse 106 H 88 Pulse Source Pulse Oximeter Auscultation Intake Visit Reasons: 2 mth f/up echo/ bessy Restaurant Area Manager Required: Yes Restaurant Area Manager Name: ERICKA Santillan562 Allergies lisinopril Allergy (Severe, Verified 03/23/24 13:00) Swelling metformin Allergy (Intermediate, Verified 03/23/24 13:00) Intolerance, chest pain, high BP, diarrhea pantoprazole Allergy (Intermediate, Verified 03/23/24 13:00) rash quetiapine Allergy (Intermediate, Verified 03/23/24 13:00) chest pain orange juice Allergy (Intermediate, Uncoded 03/23/24 13:00) gerd Medication List - Last Reconciled 04/05/24 by Juliana Sadler NP acetaminophen (Tylenol) 325 mg PO QID PRN adhesive tape (Band-Aid Paper Tape) As directed amlodipine 10 mg PO DAILY aspirin (Adult Low Dose Aspirin) 81 mg PO DAILY atorvastatin 40 mg PO DAILY blood sugar diagnostic (FreeStyle Lite Strips) 3 times a day 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 meter (FreeStyle Lite Meter kit) 3 times a day 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 meter,continuous (FreeStyle Stephon 3 [employer]) as directed 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 sensor (FreeStyle Stephon 3 Sensor device) apply new sensor every 14 days as directed chlorthalidone 25 mg PO DAILY cholecalciferol (vitamin D3) 25 mcg PO DAILY commode As directed dexlansoprazole 60 mg PO DAILY dicyclomine 20 mg PO QID 30 days dulaglutide (Trulicity) 1.5 mg (0.5 mL) subcut QWEEK 90 days empagliflozin (Jardiance) 25 mg PO QAM ezetimibe 10 mg PO DAILY 90 days gauze bandage (Band-Aid Gauze Pads) As directed glipizide ER 10 mg PO DAILY 90 days glucose (Dex4 Glucose) 16 grams (4 x 4 gram) PO Q15M PRN insulin glargine (Lantus Solostar U-100 Insulin) 10 units (0.1 mL) subcut QPM 90 days lancets (FreeStyle Lancets) 3 times a day loperamide (Imodium A-D) 2 mg PO BID metoclopramide HCl (Reglan) 10 mg PO QIDACHS omega-3 fatty acids-fish oil 300-1,000 mg 1 cap PO BID pen needle, diabetic (Comfort EZ Pen Mckee) Use 1 pen needle once a day [personal wipes As directed] sennosides (Senna Laxative) 8.6 mg PO BEDTIME simethicone (Gas Relief (simethicone)) 180 mg PO BID PRN 90 days tramadol 50 mg PO BID PRN 30 days [wheelchair As directed] HPI Comments Details: 68-year-old female presents today for a follow-up after testing. Last visit she reported she has been having chest pain on exertion, swelling in her ankles, and fatigue. She has a history of dementia, anemia, diabetes, hypertension, dyslipdidemia. She is accompanied by her daughter. She is sedentary and reports her blood sugars are still high but improving. She reports no longer having chest. [facility] Medical History (Updated 03/24/24 @ 14:40 by Juliana Sadler NP) Aortic stenosis Uncontrolled type 2 diabetes mellitus with hyperglycemia, with long-term current use of insulin Shortness of breath Chest pain Fissure in skin of foot Impacted cerumen of left ear Dyspepsia Cyst of skin Left shoulder pain Diabetes mellitus Hospital discharge follow-up Medicare annual wellness visit, subsequent Cellulitis of left leg Dementia Retinitis pigmentosa of both eyes GERD (gastroesophageal reflux disease) Obesity (BMI 30-39.9) Vitamin D deficiency Dyslipidemia Hypertension Diabetic polyneuropathy associated with type 2 diabetes mellitus Diabetic nephropathy associated with type 2 diabetes mellitus Diabetes type 2, uncontrolled Surgical History History of esophagogastroduodenoscopy (EGD) H/O colonoscopy Hx of cholecystectomy Hx of tubal ligation Hx of hernia repair Family History Father No problems noted. Mother Heart disease HTN (hypertension) Sister Pre-diabetes Brother Leukemia Son In good health Daughter In good health Daughter In good health Social History Household Members: Family Housing: Apartment Alcohol intake: never Patient Tobacco Use Status: Never used Tobacco e-Cigarette/Vaping Use: Never Used Second Hand Smoke Exposure: No service: No Current occupational status: disabled Cognitive needs: No Hearing needs: No Vision needs: No Review of Systems Const Denies weakness ENT Denies dizziness Card Denies chest pain, Denies chest pain with activity, Denies syncope, Denies rapid heart rate, Denies pedal edema, Denies edema, Denies leg edema, Denies lightheadedness, Denies palpitations, Denies dyspnea, Denies dyspnea on exertion and Denies orthopnea Resp Denies cough, Denies dyspnea and Denies dyspnea on exertion GI Denies hematochezia and Denies change in stool character Musc Denies abnormal gait, Denies muscle cramps, Denies muscle weakness, Denies numbness, Denies radiating pain into limb and Denies tingling Neuro Denies abnormal gait, Denies dizziness, Denies syncope, Denies numbness, Denies tingling and Denies weakness Endo Denies palpitations Physical Exam Vital Signs: Last Vital Signs Pulse 88 03/24/24 13:09 BP 122/60 03/24/24 12:50 BMI result Body Mass Index 26.7 Const General: healthy appearing and no acute distress Orientation/consciousness: patient oriented x3 HEENT Head: Yes normal to inspection Eyes General: appearance normal, both eyes and all related structures Neck Neck: Yes normal visual inspection Chest Chest palpation & inspection: normal inspection of the chest Resp Effort & Inspection: normal respiratory effort Auscultation: clear to auscultation bilaterally Cardio Jugular venous distension: no JVD Palpation: normal PMI Rate: regular rate Rhythm: regular rhythm Heart sounds: S1 normal heart sound present, S2 normal heart sound present, no click, no gallops, no murmurs and no rubs GI Inspection: Yes normal to inspection Palpation (GI): Soft to palpation Skin General skin exam: no rashes or lesions noted Neuro General: patient oriented x3 Extrem General: Yes normal to inspection Psych Appearance: grossly normal Results Reviewed Results Reviewed: Echo Conclusions: - The left ventricular systolic function is normal. The visually estimated ejection fraction is between 65-70%. - There is moderate to severe aortic valve stenosis. NM/NM cardiolite stress test Impression: 1. Myocardial perfusion imaging study shows normal myocardial perfusion 2. Gated LVEF is 57% 3. Transient ischemic dilatation not present Assessment & Plan Assessment & Plan (1) Chest pain: Code(s): R07.9 - Chest pain, unspecified Category: Medical (2) Aortic stenosis: Code(s): I35.0 - Nonrheumatic aortic (valve) stenosis Category: Medical Plan Chest pain resolved. Reviewed signs and symptoms of angina. Echocardiogram did show ejection fraction between 65-70%. There is moderate to severe aortic valve stenosis. Reviewed signs and symptoms/ cardinal signs of aortic stenosis. Patient denies any currently. Patient and daughter understand to report any symptoms of aortic stenosis. We will repeat echocardiogram before next visit. Orders: Orders CA echo transthoracic complete 10 Months I35.0 - Nonrheumatic aortic (valve) stenosis Coding Level of Care Code Est Pt Level 3 (46094) Diagnoses Chest pain R07.9 Aortic stenosis I35.0
[2024-03-24 12:50] VITALS: BP 122/60; PULSE 106; BMI 26.7
[2024-03-24 13:09] VITALS: PULSE 88
== END 2024-03-24 13:26 | disposition home or self-care (01) ==
PROVIDERS: PCP Internal Medicine; Visit Provider Nurse Practitioner
DX: R07.9 Chest pain, unspecified (principal); I35.0 Nonrheumatic aortic (valve) stenosis
CPT/HCPCS: 99213

== ENCOUNTER → 2024-03-24 12:34 | Outpatient (BNVA) | payer MEDICARE, MEDICAID, SELFPAY | PROVIDERS: PCP Internal Medicine; Visit Provider Nurse Practitioner | DX: R07.9 Chest pain, unspecified (principal); I35.0 Nonrheumatic aortic (valve) stenosis; I10 Essential (primary) hypertension; E78.5 Hyperlipidemia, unspecified | CPT/HCPCS: 99212 ==

== ENCOUNTER 2024-04-19 12:06 | Outpatient (AMB) | payer MEDICARE, MEDICAID, SELFPAY ==
--- NOTE | 2024-04-19 12:34 | A.OFFVIS_ITS ---
VS Expanded 04/19/24 12:35 Height 5 ft Weight 134 lb 4.184 oz BMI 26.2 Intake Visit Reasons: Type 2 diabetes mellitus with hyperglycemia/CONF Allergies lisinopril Allergy (Severe, Verified 03/23/24 13:00) Swelling metformin Allergy (Intermediate, Verified 03/23/24 13:00) Intolerance, chest pain, high BP, diarrhea pantoprazole Allergy (Intermediate, Verified 03/23/24 13:00) rash quetiapine Allergy (Intermediate, Verified 03/23/24 13:00) chest pain orange juice Allergy (Intermediate, Uncoded 03/23/24 13:00) gerd Nutrition Presentation Details: Pt presents for MNT for T2DM. Pt presents with daughter, who is the main care provider. Pt patient is legally blind Pt has 3 meals/day B: hot cereal with water , coffee with diet sugar L: sandwich with ham and chanell juice dinner: rice/chicken, beets, water or diet cranberry juice snacks: crackers, ham, pastries physical activity: sedentary etoh/smoking: denies BS Monitoring Most Recent Diabetes Results: No Data to Display WJZ-Rmfalqu-Of.Jeor Equation Height: 5 ft Weight: 134 lb Resting Metabolic Rate: 1054.31 Calculated Activity Level: Mild Activity Calories Needed to Maintain Weight: 1449.68 Diagnosis Nutrition problem #1: food nutri know defi As related to (etiology) #1: diagnosis As evidenced by (sign/symptom) #1: knowledge deficit of diet [facility] Medical History (Updated 03/24/24 @ 14:40 by Juliana Sadler NP) Aortic stenosis Uncontrolled type 2 diabetes mellitus with hyperglycemia, with long-term current use of insulin Shortness of breath Chest pain Fissure in skin of foot Impacted cerumen of left ear Dyspepsia Cyst of skin Left shoulder pain Diabetes mellitus Hospital discharge follow-up Medicare annual wellness visit, subsequent Cellulitis of left leg Dementia Retinitis pigmentosa of both eyes GERD (gastroesophageal reflux disease) Obesity (BMI 30-39.9) Vitamin D deficiency Dyslipidemia Hypertension Diabetic polyneuropathy associated with type 2 diabetes mellitus Diabetic nephropathy associated with type 2 diabetes mellitus Diabetes type 2, uncontrolled Surgical History History of esophagogastroduodenoscopy (EGD) H/O colonoscopy Hx of cholecystectomy Hx of tubal ligation Hx of hernia repair Family History Father No problems noted. Mother Heart disease HTN (hypertension) Sister Pre-diabetes Brother Leukemia Son In good health Daughter In good health Daughter In good health Social History Household Members: Family Housing: Apartment Alcohol intake: never Patient Tobacco Use Status: Never used Tobacco e-Cigarette/Vaping Use: Never Used Second Hand Smoke Exposure: No service: No Current occupational status: disabled Cognitive needs: No Hearing needs: No Vision needs: No Assessment & Plan Assessment & Plan (1) Diabetes type 2, uncontrolled: Code(s): E11.65 - Type 2 diabetes mellitus with hyperglycemia Category: Medical Qualifiers: Glycemic state: with hyperglycemia Qualified Code(s): E11.65 - Type 2 diabetes mellitus with hyperglycemia Plan: Wt: 61 Kg ( 04/20 ) Est kcal needs as per MSJ: 9197-8445 (40% carb, 30% protein/fat) Est fluid needs as per 25-30 ml/d: 1800 Est prot per day as per 1 g/kg bw: 61 Recommend fiber intake : 8-10 g per day and gradually increase to 25-28 g per day for women and 35-38 g for men or as tolerated Recommend sodium intake per day : less than 1500 mg less than 2000 mg Educated patient on: ( R = reviewed V = verbalizes understanding N/R = needs review N/A = not applicable * Food sources of carbohydrate, adequate serving sizes and its role in various health conditions: R * Differences between complex carbohydrates a simple carbohydrates, role of fiber in diet: R V N/R * Lean protein sources of foods: R * Differences between types of fats and role in diet (mono on saturated fat fatty acids, saturated fatty acids, trans fats): R V N/R * Food sources of sodium in salt and healthy modifications for heart health in kidney health: R V R/V * Vitamins and minerals: R V N/R * Healthy plate method concept: R * Physical activity: Benefits a precaution: R V N/R * Hypoglycemia protocol (rule of 15): R V N/R * Dietary prevention of Hyperglycemia: R Patient Instructions: follow healthy plate method choosing low fat protein source of foods list of meal ideas shared with daughter Coding Level of Care Code Nutr Indiv Intake (05365) Diagnoses Uncontrolled type 2 diabetes mellitus with hyperglycemia E11.65 Glycemic state: with hyperglycemia Time Spent (min) 39
[2024-04-19 12:35] VITALS: BMI 26.2
[2024-04-19 13:31] VITALS: BMI 26.2
== END 2024-04-19 13:25 | disposition home or self-care (01) ==
PROVIDERS: PCP Internal Medicine; Visit Provider Dietitian, Registered
DX: E11.65 Type 2 diabetes mellitus with hyperglycemia (principal)

== ENCOUNTER → 2024-04-19 12:06 | Outpatient (BNVA) | payer MEDICARE, MEDICAID, SELFPAY | PROVIDERS: PCP Internal Medicine; Visit Provider Dietitian, Registered | DX: E11.65 Type 2 diabetes mellitus with hyperglycemia (principal); Z79.4 Long term (current) use of insulin; Z71.3 Dietary counseling and surveillance | CPT/HCPCS: 97802 ==

== ENCOUNTER 2024-04-27 12:51 | Outpatient (AMB) | payer MEDICARE, MEDICAID, SELFPAY ==
--- NOTE | 2024-04-27 13:44 | A.OFFVIS_ITS ---
Intake Intake Visit Reasons: Type 2 diabetes mellitus with hyperglycemia Allergies lisinopril Allergy (Severe, Verified 03/23/24 13:00) Swelling metformin Allergy (Intermediate, Verified 03/23/24 13:00) Intolerance, chest pain, high BP, diarrhea pantoprazole Allergy (Intermediate, Verified 03/23/24 13:00) rash quetiapine Allergy (Intermediate, Verified 03/23/24 13:00) chest pain orange juice Allergy (Intermediate, Uncoded 03/23/24 13:00) gerd HPI Comprehensive Diabetes Asmnt Most Recent Diabetes Results: Microalb/Creat Ratio 190.2 ug/mg cr (<30) H 02/04/24 Cholesterol 159 mg/dL (<200) 02/04/24 HDL Cholesterol 37 mg/dL (>40) L 02/04/24 Triglycerides 170 mg/dL (<150) H 02/04/24 Creatinine 0.89 mg/dL (0.5-1.4) 02/04/24 Blood Urea Nitrogen 19 mg/dL (9-16) H 02/04/24 Sodium 143 mmol/L (135-145) 02/04/24 Potassium 4.0 mmol/L (3.3-5.1) 02/04/24 Chloride 108 mmol/L (96-108) 02/04/24 Carbon Dioxide 26 mmol/L (22-29) 02/04/24 Calcium 10.2 mg/dL (8.4-10.2) 02/04/24 AST 14 U/L (5-31) 02/04/24 ALT 15 U/L (0-31) 02/04/24 Total Protein 8.1 g/dL (6.5-8.0) H 02/04/24 Albumin 4.4 g/dL (3.5-5.0) 02/04/24 [facility] Medical History (Updated 03/24/24 @ 14:40 by Juliana Sadler NP) Aortic stenosis Uncontrolled type 2 diabetes mellitus with hyperglycemia, with long-term current use of insulin Shortness of breath Chest pain Fissure in skin of foot Impacted cerumen of left ear Dyspepsia Cyst of skin Left shoulder pain Diabetes mellitus Hospital discharge follow-up Medicare annual wellness visit, subsequent Cellulitis of left leg Dementia Retinitis pigmentosa of both eyes GERD (gastroesophageal reflux disease) Obesity (BMI 30-39.9) Vitamin D deficiency Dyslipidemia Hypertension Diabetic polyneuropathy associated with type 2 diabetes mellitus Diabetic nephropathy associated with type 2 diabetes mellitus Diabetes type 2, uncontrolled Surgical History History of esophagogastroduodenoscopy (EGD) H/O colonoscopy Hx of cholecystectomy Hx of tubal ligation Hx of hernia repair Family History Father No problems noted. Mother Heart disease HTN (hypertension) Sister Pre-diabetes Brother Leukemia Son In good health Daughter In good health Daughter In good health Social History Household Members: Family Housing: Apartment Alcohol intake: never Patient Tobacco Use Status: Never used Tobacco e-Cigarette/Vaping Use: Never Used Second Hand Smoke Exposure: No service: No Current occupational status: disabled Cognitive needs: No Hearing needs: No Vision needs: No Assessment & Plan Assessment & Plan (1) Uncontrolled type 2 diabetes mellitus with hyperglycemia, with long-term current use of insulin: Code(s): E11.65 - Type 2 diabetes mellitus with hyperglycemia; 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 The patient met all learning objectives and was able to verbalize understanding and provide teach back of education topics discussed . The patient was provided with the opportunity to ask questions and all questions were answered. Patient Assessment Assess patient education level/literacy/barriers, patient is legally blind. Patient's daughter reports preparing patient's meals Patient questions/concerns patient's last A1c in January 2024 10.8%. Patient brought freestyle Stephon 3 sensors to today's visit but did not receive freestyle Stephon 3 reader What is Diabetes? Pathophysiology How the body produces and uses insulin Identify type of DM Risk factors Signs of Diabetes Brief overview of Diabetes Management Monitoring blood sugar Following a meal plan Regular exercise Maintaining a healthy weight Taking medication as needed Members of the care team (PCP, RN, MA, RD, CDE, customer service agent) Blood glucose monitoring When/how often to test Target blood sugar ranges Patient did bring good blood glucose meter only 2 blood glucoses in the past 14 days Both readings within target Introduction to Nutrition Importance of healthy diet in managing DM Diet is personalized to individual preference Review patient?s regular diet/food preferences Who prepares meals/does food shopping/ Dining out?/ Barriers? How diet effects glucose Eating 3 balanced meals a day with small, healthy snacks between meals Review food groups Carbohydrates: What is a carbohydrate/Which food/food groups are considered carbohydrates Effect of carbohydrates on blood glucose Portion sizes Reading food labels Basic carb counting (if applicable per nursing assessment) Plate method Meal planning Recommendations: Follow plate method, consistent carbs and read nutritional labels. Smart Goal: Patient will identified foods that contain carbohydrates in current meal plan Educational Materials: The patient was provided with the following written educational materials: Planning Healthy Meals Handout Patient Response to instructions: Comprehension of Instructions: Fair Readiness to make changes: Contemplation How confident they feel about making changes: Positive Patient will contact clinic when she receives [employer] reader for CGM set up Portions of this note were created using voice recognition software, please excuse any words or phrases that may have been misinterpreted. Patient Instructions: Incluir actividad diaria regular. ADA recomienda 30 minutos de ejercicio 5 d?as a la semana. P?rdida de peso, hable con el PCP o el cardi?logo antes de comenzar un nuevo plan. Mida el nivel de az?car en la deb seg?n las indicaciones; Ayuno y comida m?s christine de 2hpp. Observe las tendencias en los resultados. Utilice los resultados y eval?e c?mo los alimentos, la actividad f?vonda y los medicamentos afectan los resultados de az?car en la deb. Lleve el gluc?metro o CGM a la pr?xima visita. Conocer los medicamentos para la diabetes, denson acci?n, los efectos secundarios, la eficacia, la toxicidad, la dosis prescrita, el momento y la frecuencia de administraci?n apropiados, el efecto de las dosis olvidadas y retrasadas y las instrucciones de almacenamiento, viaje y seguridad. T?cnicas de resoluci?n de problemas para el seguimiento de episodios de hipo/hiperglucemia y tratamientos. Reducir los comportamientos de reducci?n de riesgos, dejar de fumar, ex?menes regulares de ojos, pies y dentales. Coding Level of Care Code Tele New Pt Level 5 (65256) Diagnoses Uncontrolled type 2 diabetes mellitus with hyperglycemia, with long-term current use of insulin E11.65; Z79.4
== END 2024-04-27 13:45 | disposition home or self-care (01) ==
PROVIDERS: PCP Internal Medicine; Visit Provider Registered Nurse Diabetes Educator
DX: E11.65 Type 2 diabetes mellitus with hyperglycemia (principal); Z79.4 Long term (current) use of insulin
CPT/HCPCS: 99204

== ENCOUNTER → 2024-04-27 12:51 | Outpatient (BNVA) | payer MEDICARE, MEDICAID, SELFPAY | PROVIDERS: PCP Internal Medicine; Visit Provider Registered Nurse Diabetes Educator | DX: E11.65 Type 2 diabetes mellitus with hyperglycemia (principal); E11.42 Type 2 diabetes mellitus with diabetic polyneuropathy; E11.21 Type 2 diabetes mellitus with diabetic nephropathy; Z79.4 Long term (current) use of insulin | CPT/HCPCS: 99202 ==

== ENCOUNTER 2024-05-04 12:35 | Outpatient (AMB) | payer MEDICARE, MEDICAID, SELFPAY ==
--- NOTE | 2024-05-04 12:49 | A.OFFVIS_ITS ---
Vital Signs 05/04/24 12:53 Height 5 ft Weight 136 lb 10.986 oz BMI 26.7 BP 118/78 Blood Pressure Location Rt brachial Position Sitting Pulse 86 Pulse Source Pulse Oximeter Intake Visit Reasons: diabetes review CGM Intake Note: Patient presents today for a follow-up for Type 2 Diabetes Mellitus: Last Diabetic eye exam was on: Legally Blind Last Podiatry exam was on: Does not see a Manager Sterile Processing Most recent HbA1c: 7.4%, 05/04/2024 Random Glucose- 111 mg/dL, Today Zoo Keeper Required: Yes Zoo Keeper Language: Stock Sorter Services: Zoo Keeper Offered & Declined Information Interpreted: non-clinical & clinical Accompanied by: Daughter Allergies lisinopril Allergy (Severe, Verified 03/23/24 13:00) Swelling metformin Allergy (Intermediate, Verified 03/23/24 13:00) Intolerance, chest pain, high BP, diarrhea pantoprazole Allergy (Intermediate, Verified 03/23/24 13:00) rash quetiapine Allergy (Intermediate, Verified 03/23/24 13:00) chest pain orange juice Allergy (Intermediate, Uncoded 03/23/24 13:00) gerd HPI Comments Details: This is a 69-year-old female with a past medical history of dementia, uncontrolled type 2 diabetes, dyslipidemia, hypertension, obesity, GERD and chronic constipation presenting for diabetic management. She is with her daughter, Nicolette. Ukrainian phone site administrator used (video unavailable). She was last seen in the endocrinology department by me on 03/23/24. The patient's hemoglobin A1c was checked in January, and it was 10.8%. Her PCP and increased Trulicity and started Lantus. Home log reviewed for April 20 to May 04: There is paucity of data, but the recorded blood glucose readings are in target range. POC 111. Hemoglobin a1c today 7.4%. She got the libre3 sensors, but she did not get a reader. Current medication regimen: Lantus 10 units nightly, glipizide ER 10 mg daily, Jardiance 25 mg, Trulicity 1.5 mg weekly. Intolerant to metformin which caused diarrhea, chest pain and elevated blood pressure. Compliance issues: She is legally blind, and she can't check her own BG with the glucometer. She saw the business technology analyst and cw operator, and she has made changes to her diet. Hypoglycemia symptoms: none. Denies episodes. Hyperglycemia symptoms: none. Denies episodes. Eye exam: legally blind, referred to [facility] at her last visit. I gave her daughter the phone number to call today. Microvascular complications: neuropathy, nephropathy (microalbumin) Macrovascular complications: none Hypertension: treated with amlodipine 10 mg, chlorthalidone 25 mg. Intolerant to DEBBY inhibitor which caused swelling. Hyperlipidemia: treated with atorvastatin 40 mg and Zetia 10 mg daily. LDL at goal <100. ROS: Constitutional: No unexplained weight loss, fever, chills, fatigue or night sweats. Respiratory: No shortness of breath, cough or sputum production. Cardiovascular: No chest pain, chest pressure or chest discomfort. No palpitations or pedal edema. Neurologic: No headache, dizziness, syncope, unilateral weakness Skin: No open wounds. Endocrine: No cold or heat intolerance. No polyuria or polydipsia. Physical exam: Constitutional: Alert, in no distress. Neck: Supple, Full range of motion. No lymphadenopathy. No palpable thyroid masses or thyromegaly. Respiratory: Clear to auscultation. Cardiovascular: S1 S2 regular. III/ systolic murmur. Extremities: Warm and well perfused. No clubbing, cyanosis or edema. Right foot: Warm and well perfused. No clubbing, cyanosis or edema. DP pulse 2+. Decreased vibratory sensation. Decreased sensation to monofilament. No open wounds. Left foot: Warm and well perfused. No clubbing, cyanosis or edema. DP pulse 2+. Decreased vibratory sensation. Decreased sensation to monofilament. No open wounds. [facility] Medical History (Updated 03/24/24 @ 14:40 by Juliana Sadler NP) Aortic stenosis Uncontrolled type 2 diabetes mellitus with hyperglycemia, with long-term current use of insulin Shortness of breath Chest pain Fissure in skin of foot Impacted cerumen of left ear Dyspepsia Cyst of skin Left shoulder pain Diabetes mellitus Hospital discharge follow-up Medicare annual wellness visit, subsequent Cellulitis of left leg Dementia Retinitis pigmentosa of both eyes GERD (gastroesophageal reflux disease) Obesity (BMI 30-39.9) Vitamin D deficiency Dyslipidemia Hypertension Diabetic polyneuropathy associated with type 2 diabetes mellitus Diabetic nephropathy associated with type 2 diabetes mellitus Diabetes type 2, uncontrolled Surgical History History of esophagogastroduodenoscopy (EGD) H/O colonoscopy Hx of cholecystectomy Hx of tubal ligation Hx of hernia repair Family History Father No problems noted. Mother Heart disease HTN (hypertension) Sister Pre-diabetes Brother Leukemia Son In good health Daughter In good health Daughter In good health Social History Household Members: Family Housing: Apartment Alcohol intake: never Patient Tobacco Use Status: Never used Tobacco e-Cigarette/Vaping Use: Never Used Second Hand Smoke Exposure: No service: No Current occupational status: disabled Cognitive needs: No Hearing needs: No Vision needs: No Physical Exam Vital Signs: Last Vital Signs Pulse 86 05/04/24 12:53 BP 118/78 05/04/24 12:53 BMI result Body Mass Index 26.7 Results AMB Hemoglobin A1c AMB Hemoglobin A1c 7.4 % Last Edit by ALDO Alvarado on 05/04/24 13:27 Results Reviewed Results Reviewed: Laboratory Last Values Glucose (Clinic) 111 mg/dL (60-115) 05/04/24 12:58 Laboratory Tests 12/11/22 02/04/24 02/04/24 11:24 10:38 11:10 Creatinine Estimated GFR Hgb A1c (Clinic) 8.0 H 10.8 H Cholesterol LDL Cholesterol, Calc HDL Cholesterol Urine Creatinine 67.79 Urine Microalbumin 129.0 Microalb/Creat Ratio 190.2 H 02/04/24 11:14 Creatinine 0.89 Estimated GFR > 60 Hgb A1c (Clinic) Cholesterol 159 LDL Cholesterol, Calc 88 HDL Cholesterol 37 L Urine Creatinine Urine Microalbumin Microalb/Creat Ratio Assessment & Plan Assessment & Plan (1) Uncontrolled type 2 diabetes mellitus with hyperglycemia, with long-term current use of insulin: Code(s): E11.65 - Type 2 diabetes mellitus with hyperglycemia; Z79.4 - senior care (current) use of insulin Category: Medical (2) Diabetic nephropathy associated with type 2 diabetes mellitus: Code(s): E11.21 - Type 2 diabetes mellitus with diabetic nephropathy Category: Medical Plan In summary this is a 69-year-old female with type 2 diabetes with significantly improved glycemic control on her current regimen of Lantus, Trulicity, Jardiance and glipizide. A1C near goal, and I am not adjusting medications today because they don't have a reliable way to monitor for hypoglycemia yet. Freestyle libre3 was back ordered but should be available now. I sent this to [facility] and provided Nicolette with a printed prescription if she wants to try another pharmacy, but if she is not able to fill it in the next 1-2 weeks she was instructed to call the office. We will review CGM data at her next appointment and make adjustments to her regimen at that time if indicated. Congratulated on improvements in her diet. Discussed pathophysiology of Type II Diabetes Mellitus with the patient in detail.? I explained the halfway risks and complications associated with uncontrolled diabetes including nephropathy, neuropathy, peripheral vascular disease, retinopathy, increased risk of heart disease and stroke.? Follow up in 3 months for Type II DM. Orders: Orders AMB Hemoglobin A1c Today E11.65 - Type 2 diabetes mellitus with hyperglycemia, Z79.4 - senior care (current) use of insulin Medications: Refilled 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 sensor (FreeStyle Stephon 3 Sensor device) apply new sensor every 14 days as directed 2 ea 11RF 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 sensor (FreeStyle Stephon 3 Sensor device) apply new sensor every 14 days as directed 2 ea 11RF 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 meter,continuous (FreeStyle Stephon 3 Novelty) as directed 1 ea 0RF 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 meter,continuous (FreeStyle Stephon 3 Novelty) as directed 1 ea 0RF glucose (Dex4 Glucose) until symptoms of low blood sugar are controlled 16 grams (4 x 4 gram) PO Q15M PRN 60 tabs 1RF hypoglycemia Patient Instructions: [phone] [facility] Coding Level of Care Code Est Pt Level 5 (98730) Complex EM visit Add On G2211 Diagnoses Uncontrolled type 2 diabetes mellitus with hyperglycemia, with long-term current use of insulin E11.65; Z79.4 Diabetic nephropathy associated with type 2 diabetes mellitus E11.21 Time Spent (min) 55 Comment chart review, direct patient care, completing documentation
[2024-05-04 12:53] VITALS: BP 118/78; PULSE 86; BMI 26.7
[2024-05-04 13:03] LABS: Glucose, Whole Blood 111 mg/dL (60-115)
== END 2024-05-04 13:39 | disposition home or self-care (01) ==
PROVIDERS: PCP Internal Medicine; Visit Provider Physician Assistant Medical
DX: E11.65 Type 2 diabetes mellitus with hyperglycemia (principal); Z79.4 Long term (current) use of insulin; E11.21 Type 2 diabetes mellitus with diabetic nephropathy

== ENCOUNTER → 2024-05-04 12:35 | Outpatient (BNVA) | payer MEDICARE, MEDICAID, SELFPAY | PROVIDERS: PCP Internal Medicine; Visit Provider Physician Assistant Medical | DX: E11.65 Type 2 diabetes mellitus with hyperglycemia (principal); E11.21 Type 2 diabetes mellitus with diabetic nephropathy; Z79.4 Long term (current) use of insulin | CPT/HCPCS: 82947; 83036; 99212 ==

== ENCOUNTER 2024-05-05 09:48 | Outpatient (REF) | payer MEDICARE, SELFPAY ==
[2024-05-05 10:37] LABS: Appearance Urine Clear; Color Urine Yellow; Glucose Urine UA >=1000 mg/dL (Negative); Leukocyte Esterase Urine Trace (Negative); Nitrite Urine Negative (Negative); PH 5.5 (5.0-9.0); Specific Gravity - Urine >= 1.030 (1.005-1.025); UMIC TRIGGER UA YES; Urine Blood Trace (Negative); Urine Ketones Negative (Negative); Urine Protein Negative (Neg-Trace)
[2024-05-05 10:40] LABS: Bacteria Urine 1+ (None Seen); Hyaline Casts Urine 0-2 /LPF (0-2)
[2024-05-05 20:29] LABS: Creatinine Urine 114.69 mg/dL; Total Protein Urine Random 17 mg/dL (<12)
[2024-05-07 10:17] LABS: Prot Elec - Albumin 4.3 g/dL (3.8-4.8); Prot Elec - Alpha1 0.3 g/dL (0.2-0.3); Prot Elec - Alpha2 0.8 g/dL (0.5-0.9); Prot Elec - Beta 1 0.4 g/dL (0.4-0.6); Prot Elec - Beta 2 0.5 g/dL (0.2-0.5); Prot Elec - Gamma 1.1 g/dL (0.8-1.7); Prot Elec - Total Protein 7.3 g/dL (6.1-8.1)
== END 2024-05-05 09:49 | disposition home or self-care (01) ==
LOC: HO.LAB 09:48
PROVIDERS: PCP Internal Medicine; Visit Provider Internal Medicine Hypertension Specialist
DX: R80.9 Proteinuria, unspecified (principal)
CPT/HCPCS: 36415; 81001; 82570; 84156; 84165

== ENCOUNTER 2024-05-11 10:44 | Outpatient (REF) | payer MEDICARE, SELFPAY ==
[2024-05-13 14:23] LABS: HPV mRNA E6/E7 Not Detected (Not Detected)
== END 2024-05-11 10:45 | disposition home or self-care (01) ==
LOC: HO.LNP 10:44
PROVIDERS: PCP Internal Medicine; Visit Provider Obstetrics & Gynecology
DX: R93.5 Abnormal findings on diagnostic imaging of other abdominal regions, including retroperitoneum (principal); E11.65 Type 2 diabetes mellitus with hyperglycemia; E11.21 Type 2 diabetes mellitus with diabetic nephropathy; Z79.4 Long term (current) use of insulin
CPT/HCPCS: 82947; 87624; 88175; 99202; 99212

== ENCOUNTER 2024-05-11 10:44 | Outpatient (AMB) | payer MEDICARE, SELFPAY ==
--- NOTE | 2024-05-11 10:48 | A.OFFVIS_ITS ---
Vital Signs 05/11/24 10:50 Height 5 ft Weight 136 lb 10.986 oz BMI 26.7 BP 120/72 Intake Visit Reasons: pelvic pain/Referral/DO NOT RS Operating Table Assembler Required: Yes Operating Table Assembler Language: Emergency Room Physician Assistant Services: Operating Table Assembler Present (in person) Operating Table Assembler Name: Kori CARLSON Information Interpreted: non-clinical & clinical Hide Inspector: Hide Inspector Present (Kori CARLSON) Accompanied by: Daughter Allergies lisinopril Allergy (Severe, Verified 05/11/24 10:53) Swelling metformin Allergy (Intermediate, Verified 05/11/24 10:53) Intolerance, chest pain, high BP, diarrhea pantoprazole Allergy (Intermediate, Verified 05/11/24 10:53) rash quetiapine Allergy (Intermediate, Verified 05/11/24 10:53) chest pain orange juice Allergy (Intermediate, Uncoded 05/11/24 10:53) gerd Post menopausal: Yes HPI Comments Details: Presenting referred for her PCP regarding abnormal finding on pelvic ultrasound 02/17 pelvic ultrasound showed the following: Uterus: The uterus is anteverted and measures 7.4 x 6.8 x 6.5 cm. Previously seen submucosal fibroid with multiple calcifications present on the 08/03/2017 CT scan is not appreciated on this exam. The double wall endometrial thickness is 5 mm. Of note, there is an echogenic polypoid mass present in the endometrial cavity measuring 1.0 x 1.4 x 0.8 cm. Adnexa: Neither ovary was seen. No free fluid present. Last Pap smear in 12/13 was negative Last mammogram in 02/17 was BI-RADS 1 [facility] Medical History Aortic stenosis Uncontrolled type 2 diabetes mellitus with hyperglycemia, with long-term current use of insulin Shortness of breath Chest pain Fissure in skin of foot Impacted cerumen of left ear Dyspepsia Cyst of skin Left shoulder pain Diabetes mellitus Hospital discharge follow-up Medicare annual wellness visit, subsequent Cellulitis of left leg Dementia Retinitis pigmentosa of both eyes GERD (gastroesophageal reflux disease) Obesity (BMI 30-39.9) Vitamin D deficiency Dyslipidemia Hypertension Diabetic polyneuropathy associated with type 2 diabetes mellitus Diabetic nephropathy associated with type 2 diabetes mellitus Diabetes type 2, uncontrolled Surgical History History of esophagogastroduodenoscopy (EGD) H/O colonoscopy Hx of cholecystectomy Hx of tubal ligation Hx of hernia repair Family History Father No problems noted. Mother Heart disease HTN (hypertension) Sister Pre-diabetes Brother Leukemia Son In good health Daughter In good health Daughter In good health Social History Household Members: Family Housing: Apartment Alcohol intake: never Patient Tobacco Use Status: Never used Tobacco e-Cigarette/Vaping Use: Never Used Second Hand Smoke Exposure: No service: No Current occupational status: disabled Cognitive needs: No Hearing needs: No Vision needs: No Review of Systems Const All systems reviewed & are unremarkable except as noted in HPI and below Physical Exam Vital Signs: BMI result Body Mass Index 26.7 General: Yes no CVA tenderness External Female Exam: normal external appearance and normal appearance of the urethra Speculum Exam - Vagina: normal appearance of the vagina, normal palpation, no lesions and no masses Speculum Exam - Cervix: normal appearance of the cervix, normal palpation, no lesions, no masses and nontender Bimanual exam- vagina & uterus: normal bimanual exam, normal palpation, uterine size normal, normal palpation, uterine shape normal, No Cervical tenderness present and non-tender Bimanual Exam- Adnexa, other: normal adnexae Back/Spine/Pelvis Back: no CVA tenderness Assessment & Plan Assessment & Plan (1) Abnormal ultrasound of endometrium: Comment: Thickened endometrium 5 mm Polypoid 1.4 cm endometrial mass Code(s): R93.5 - Abnormal findings on diagnostic imaging of other abdominal regions, including retroperitoneum Category: Medical Plan: Since the patient does not have any record of any Pap smear except in 2019 within normal without HPV, co testing done Discussed with the patient the finding on ultrasound showing a thickened endometrium and polypoid 1.4 cm endometrial mass. Differential diagnosis discussed with the patient includes but not limited to endometrial pathology including endometrial hyperplasia or malignancy, endometrial polyps , submucosal myoma or others. Recommended hysteroscopy D&C possible polypectomy/myomectomy. Given the complex comorbid medical conditions including aortic stenosis , uncontrolled diabetes, and others, will refer to a tertiary care center for further management. All questions answered, the patient verbalized understanding Instructed the patient to call our office back in case a referral appointment is not scheduled, missed or canceled so that we will assist on rescheduling another appointment, the patient verbalized understanding agreed with the plan. Coding Level of Care Code New Pt Level 3 (85559) Diagnoses Abnormal ultrasound of endometrium R93.5
[2024-05-11 10:50] VITALS: BP 120/72; BMI 26.7
== END 2024-05-11 11:24 | disposition home or self-care (01) ==
LOC: HO.HWS 10:44
PROVIDERS: PCP Internal Medicine; Visit Provider Obstetrics & Gynecology
DX: R93.5 Abnormal findings on diagnostic imaging of other abdominal regions, including retroperitoneum (principal)
CPT/HCPCS: 99203

== ENCOUNTER 2024-05-11 11:33 | Outpatient (AMB) | payer MEDICARE, SELFPAY ==
[2024-05-11 11:34] VITALS: BP 122/68; PULSE 96; BMI 26.7
--- NOTE | 2024-05-11 11:34 | MHC.OFFVIS ---
Vital Signs 05/11/24 11:34 Height 5 ft Weight 136 lb 10.986 oz BMI 26.7 BP 122/68 Blood Pressure Location Rt brachial Position Sitting Pulse 96 Pulse Source Pulse Oximeter Intake Visit Reasons: DM/CGM Insert Intake Note: Patient presents today for a follow-up for Type 2 Diabetes Mellitus: Freestyle Stephon 3 Teaching/Insert. Last Diabetic eye exam was on: Legally Blind Last Podiatry exam was on: Does not see a Tray Line Worker Most recent HbA1c: 7.4%, 05/04/2024 Random Glucose- 105 mg/dL, Today Cuff Setter Overlock Required: Yes Cuff Setter Overlock Language: Manager Child Services: Cuff Setter Overlock Present Cuff Setter Overlock Name: Pam Colbert, ALDO/HUSSAIN Martinez Information Interpreted: non-clinical & clinical Accompanied by: Daughter Allergies lisinopril Allergy (Severe, Verified 05/11/24 10:53) Swelling metformin Allergy (Intermediate, Verified 05/11/24 10:53) Intolerance, chest pain, high BP, diarrhea pantoprazole Allergy (Intermediate, Verified 05/11/24 10:53) rash quetiapine Allergy (Intermediate, Verified 05/11/24 10:53) chest pain orange juice Allergy (Intermediate, Uncoded 05/11/24 10:53) gerd HPI Comments Details: This is a 69-year-old female with a past medical history of dementia, uncontrolled type 2 diabetes, dyslipidemia, hypertension, obesity, GERD and chronic constipation presenting for CGM training. She is with her daughter, Nicolette. She saw me for her diabetic follow up last week, and she is doing well. They have the Stephon 3 sensor and reader with them today. She was last seen in the endocrinology department by me on 03/23/24. The patient's hemoglobin A1c was checked in January, and it was 10.8%. Her PCP and increased Trulicity and started Lantus. Hemoglobin a1c 7.4%. Current medication regimen: Lantus 10 units nightly, glipizide ER 10 mg daily, Jardiance 25 mg, Trulicity 1.5 mg weekly. Intolerant to metformin which caused diarrhea, chest pain and elevated blood pressure. She saw the coordinator of library services and appraisal technician, and she has made changes to her diet. Hypoglycemia symptoms: none. Denies episodes. Hyperglycemia symptoms: none. Denies episodes. ROS: Endocrine: No cold or heat intolerance. No polyuria or polydipsia. Physical exam: Constitutional: Alert, in no distress. Respiratory: Clear to auscultation. Cardiovascular: S1 S2 regular. III/ systolic murmur. [facility] Medical History Aortic stenosis Uncontrolled type 2 diabetes mellitus with hyperglycemia, with long-term current use of insulin Shortness of breath Chest pain Fissure in skin of foot Impacted cerumen of left ear Dyspepsia Cyst of skin Left shoulder pain Diabetes mellitus Hospital discharge follow-up Medicare annual wellness visit, subsequent Cellulitis of left leg Dementia Retinitis pigmentosa of both eyes GERD (gastroesophageal reflux disease) Obesity (BMI 30-39.9) Vitamin D deficiency Dyslipidemia Hypertension Diabetic polyneuropathy associated with type 2 diabetes mellitus Diabetic nephropathy associated with type 2 diabetes mellitus Diabetes type 2, uncontrolled Surgical History History of esophagogastroduodenoscopy (EGD) H/O colonoscopy Hx of cholecystectomy Hx of tubal ligation Hx of hernia repair Family History Father No problems noted. Mother Heart disease HTN (hypertension) Sister Pre-diabetes Brother Leukemia Son In good health Daughter In good health Daughter In good health Social History Household Members: Family Housing: Apartment Alcohol intake: never Patient Tobacco Use Status: Never used Tobacco e-Cigarette/Vaping Use: Never Used Second Hand Smoke Exposure: No service: No Current occupational status: disabled Cognitive needs: No Hearing needs: No Vision needs: No Physical Exam Vital Signs: Last Vital Signs Pulse 96 05/11/24 11:34 BP 122/68 05/11/24 11:34 BMI result Body Mass Index 26.7 Assessment & Plan Assessment & Plan (1) Uncontrolled type 2 diabetes mellitus with hyperglycemia, with long-term current use of insulin: Code(s): E11.65 - Type 2 diabetes mellitus with hyperglycemia; Z79.4 - termite control service representative (current) use of insulin Category: Medical (2) Diabetic nephropathy associated with type 2 diabetes mellitus: Code(s): E11.21 - Type 2 diabetes mellitus with diabetic nephropathy Category: Medical Plan In summary this is a 69-year-old female with type 2 diabetes with significantly improved glycemic control on her current regimen of Lantus, Trulicity, Jardiance and glipizide. The patient and her daughter were educated on how to apply this sensor and use the reader. Sensor was applied to the patient today. They will contact the office if she has any questions. She will continue her current medications. Follow up in 3 months for Type II DM. Coding Level of Care Code Est Pt Level 3 (19983) Complex EM visit Add On G2211 Diagnoses Uncontrolled type 2 diabetes mellitus with hyperglycemia, with long-term current use of insulin E11.65; Z79.4 Diabetic nephropathy associated with type 2 diabetes mellitus E11.21
== END 2024-05-11 11:59 | disposition home or self-care (01) ==
PROVIDERS: PCP Internal Medicine; Visit Provider Physician Assistant Medical
DX: E11.65 Type 2 diabetes mellitus with hyperglycemia (principal); Z79.4 Long term (current) use of insulin; E11.21 Type 2 diabetes mellitus with diabetic nephropathy

== ENCOUNTER 2024-05-20 11:07 | Outpatient (AMB) | payer MEDICARE, SELFPAY ==
[2024-05-20 11:18] VITALS: BP 126/70; PULSE 90; O2SAT 97; BMI 26.6
--- NOTE | 2024-05-20 11:18 | HO.NEPHOV_ITS ---
Vital Signs 05/20/24 11:18 Height 5 ft Weight 136 lb BMI 26.6 BP 126/70 Blood Pressure Location Rt brachial Position Sitting Pulse 90 Pulse Source Pulse Oximeter Pulse Oximetry (%) 97 Oxygen Delivery Method Room Air Intake Visit Reasons: Proteinuria/ Conf Outside Event Sales Specialist Required: Yes Outside Event Sales Specialist Name: [id number] Accompanied by: Daughter Allergies lisinopril Allergy (Severe, Verified 05/20/24 11:21) Swelling metformin Allergy (Intermediate, Verified 05/20/24 11:21) Intolerance, chest pain, high BP, diarrhea pantoprazole Allergy (Intermediate, Verified 05/20/24 11:21) rash quetiapine Allergy (Intermediate, Verified 05/20/24 11:21) chest pain orange juice Allergy (Intermediate, Uncoded 05/11/24 10:53) gerd Medication List - Last Reconciled 05/20/24 by German Vásquez MD acetaminophen (Tylenol) 325 mg PO QID PRN adhesive tape (Band-Aid Paper Tape) As directed amlodipine 10 mg PO DAILY aspirin (Adult Low Dose Aspirin) 81 mg PO DAILY atorvastatin 40 mg PO DAILY blood sugar diagnostic (FreeStyle Lite Strips) 3 times a day 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 meter (FreeStyle Lite Meter kit) 3 times a day 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 meter,continuous (FreeStyle Stephon 3 [place]) as directed 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 sensor (FreeStyle Stephon 3 Sensor device) apply new sensor every 14 days as directed chlorthalidone 25 mg PO DAILY cholecalciferol (vitamin D3) 25 mcg PO DAILY commode As directed dexlansoprazole 60 mg PO DAILY dicyclomine 20 mg PO QID 30 days dulaglutide (Trulicity) 1.5 mg (0.5 mL) subcut QWEEK 90 days empagliflozin (Jardiance) 25 mg PO QAM ezetimibe 10 mg PO DAILY 90 days gauze bandage (Band-Aid Gauze Pads) As directed glipizide ER 10 mg PO DAILY 90 days glucose (Dex4 Glucose) 16 grams (4 x 4 gram) PO Q15M PRN insulin glargine (Lantus Solostar U-100 Insulin) 10 units (0.1 mL) subcut QPM 90 days lancets (FreeStyle Lancets) 3 times a day loperamide (Imodium A-D) 2 mg PO BID metoclopramide HCl (Reglan) 10 mg PO QIDACHS omega-3 fatty acids-fish oil 300-1,000 mg 1 cap PO BID pen needle, diabetic (Comfort EZ Pen [place]) Use 1 pen needle once a day [personal wipes As directed] sennosides (Senna Laxative) 8.6 mg PO BEDTIME Shower Chair As directed simethicone (Gas Relief (simethicone)) 180 mg PO BID PRN 90 days tramadol 50 mg PO BID PRN 30 days [walker with seat As directed] [wheelchair As directed] HPI Comments Details: 68-year-old man with a history of longstanding diabetes mellitus. She has been referred for evaluation of microalbuminuria. Blind. History of diabetic polyneuropathy She was on lisinopril and developed swelling of the lips. She has no longer on DEBBY inhibitor due to angioedema. She was accompanied by her daughter. She has retinitis pigmentosa and is legally 05/20/24 c/o burning urination [facility] Medical History Aortic stenosis Uncontrolled type 2 diabetes mellitus with hyperglycemia, with long-term current use of insulin Shortness of breath Chest pain Fissure in skin of foot Impacted cerumen of left ear Dyspepsia Cyst of skin Left shoulder pain Diabetes mellitus Hospital discharge follow-up Medicare annual wellness visit, subsequent Cellulitis of left leg Dementia Retinitis pigmentosa of both eyes GERD (gastroesophageal reflux disease) Obesity (BMI 30-39.9) Vitamin D deficiency Dyslipidemia Hypertension Diabetic polyneuropathy associated with type 2 diabetes mellitus Diabetic nephropathy associated with type 2 diabetes mellitus Diabetes type 2, uncontrolled Surgical History History of esophagogastroduodenoscopy (EGD) H/O colonoscopy Hx of cholecystectomy Hx of tubal ligation Hx of hernia repair Family History Father No problems noted. Mother Heart disease HTN (hypertension) Sister Pre-diabetes Brother Leukemia Son In good health Daughter In good health Daughter In good health Social History Household Members: Family Housing: Apartment Alcohol intake: never Patient Tobacco Use Status: Never used Tobacco e-Cigarette/Vaping Use: Never Used Second Hand Smoke Exposure: No service: No Current occupational status: disabled Cognitive needs: No Hearing needs: No Vision needs: No Physical Exam Vital Signs: Last Vital Signs Pulse 90 05/20/24 11:18 BP 126/70 05/20/24 11:18 Pulse Ox 97 05/20/24 11:18 Oxygen Delivery Method Room Air 05/20/24 11:18 BMI result Body Mass Index 26.6 Results Reviewed Nephrology Results: Urine Protein Negative mg/dL (Neg-Trace) 05/20/24 Urine Creatinine 114.69 mg/dL 05/05/24 Assessment & Plan Assessment & Plan (1) Microalbuminuria: Code(s): R80.9 - Proteinuria, unspecified Category: Medical (2) Diabetic nephropathy associated with type 2 diabetes mellitus: Code(s): E11.21 - Type 2 diabetes mellitus with diabetic nephropathy Category: Medical (3) Hypertension: Code(s): I10 - Essential (primary) hypertension Category: Medical Qualifiers: Hypertension type: essential hypertension Qualified Code(s): I10 - Essential (primary) hypertension Plan 68-year-old woman with a history of microalbuminuria most likely due to underlying diabetic kidney disease. Nondiabetic causes seem less likely at this point. Overall blood pressure is well controlled. Goal is to maintain blood pressure less than 130/80. Maintain hemoglobin A1c less than 7%. She we will benefit from DEBBY inhibition. However she has a history of angioedema with DEBBY inhibitors, therefore I would avoid using DEBBY inhibitors or ARBs. We can certainly try using spironolactone after lowering AMlodipine- based on BP She will benefit from SGLT2 inhibitors and we will continue with Jardiance. Will check urine culture today Shall follow along with you. Thank you Orders: Orders Urine Culture Today R30.0 - Dysuria Coding Level of Care Code Est Pt Level 4 (19592) Diagnoses Microalbuminuria R80.9 Diabetic nephropathy associated with type 2 diabetes mellitus E11.21 Essential hypertension I10 Hypertension type: essential hypertension
== END 2024-05-20 11:40 | disposition home or self-care (01) ==
PROVIDERS: PCP Internal Medicine; Visit Provider Internal Medicine Hypertension Specialist
DX: R80.9 Proteinuria, unspecified (principal); E11.21 Type 2 diabetes mellitus with diabetic nephropathy; I10 Essential (primary) hypertension
CPT/HCPCS: 99214

== ENCOUNTER 2024-05-20 11:07 | Outpatient (REF) | payer MEDICARE, SELFPAY ==
[2024-05-20 12:14] LABS: Appearance Urine Clear; Color Urine Yellow; Glucose Urine UA Negative (Negative); Leukocyte Esterase Urine Moderate (2+) (Negative); Nitrite Urine Negative (Negative); PH 5.5 (5.0-9.0); UMIC TRIGGER UA YES; Urine Blood Negative (Negative); Urine Ketones Negative (Negative); Urine Protein Negative (Neg-Trace)
[2024-05-20 12:18] LABS: Bacteria Urine 2+ (None Seen); Hyaline Casts Urine 0-2 /LPF (0-2); RBC Urine 0-2 /HPF (0-2)
== END 2024-05-20 11:08 | disposition home or self-care (01) ==
LOC: HO.LAB 11:07
PROVIDERS: PCP Internal Medicine; Visit Provider Internal Medicine Hypertension Specialist
DX: R30.0 Dysuria (principal); R80.9 Proteinuria, unspecified; I10 Essential (primary) hypertension; E11.21 Type 2 diabetes mellitus with diabetic nephropathy
CPT/HCPCS: 81001; 87086; 99212

== ENCOUNTER 2024-06-09 12:41 | Outpatient (AMB) | payer MEDICARE, SELFPAY ==
--- NOTE | 2024-06-09 13:44 | A.OFFVIS_ITS ---
Intake Intake Visit Reasons: Sensor-conf Rehab Liaison Required: Yes Rehab Liaison Language: Foxing Painter Name: Oneal [facility] [place] Accompanied by: Daughter Allergies lisinopril Allergy (Severe, Verified 05/20/24 11:21) Swelling metformin Allergy (Intermediate, Verified 05/20/24 11:21) Intolerance, chest pain, high BP, diarrhea pantoprazole Allergy (Intermediate, Verified 05/20/24 11:21) rash quetiapine Allergy (Intermediate, Verified 05/20/24 11:21) chest pain orange juice Allergy (Intermediate, Uncoded 05/11/24 10:53) gerd HPI Comprehensive Diabetes Asmnt Most Recent Diabetes Results: No Data to Display [facility] Medical History Aortic stenosis Uncontrolled type 2 diabetes mellitus with hyperglycemia, with long-term current use of insulin Shortness of breath Chest pain Fissure in skin of foot Impacted cerumen of left ear Dyspepsia Cyst of skin Left shoulder pain Diabetes mellitus Hospital discharge follow-up Medicare annual wellness visit, subsequent Cellulitis of left leg Dementia Retinitis pigmentosa of both eyes GERD (gastroesophageal reflux disease) Obesity (BMI 30-39.9) Vitamin D deficiency Dyslipidemia Hypertension Diabetic polyneuropathy associated with type 2 diabetes mellitus Diabetic nephropathy associated with type 2 diabetes mellitus Diabetes type 2, uncontrolled Surgical History History of esophagogastroduodenoscopy (EGD) H/O colonoscopy Hx of cholecystectomy Hx of tubal ligation Hx of hernia repair Family History Father No problems noted. Mother Heart disease HTN (hypertension) Sister Pre-diabetes Brother Leukemia Son In good health Daughter In good health Daughter In good health Social History Household Members: Family Housing: Apartment Alcohol intake: never Patient Tobacco Use Status: Never used Tobacco e-Cigarette/Vaping Use: Never Used Second Hand Smoke Exposure: No service: No Current occupational status: disabled Cognitive needs: No Hearing needs: No Vision needs: No Assessment & Plan Assessment & Plan (1) Diabetes type 2, uncontrolled: Code(s): E11.65 - Type 2 diabetes mellitus with hyperglycemia Qualifiers: Glycemic state: with hyperglycemia Qualified Code(s): E11.65 - Type 2 diabetes mellitus with hyperglycemia Plan: Learning objectives: The patient was provided with verbal and written education on the following topics as outlined below. The patient met all learning objectives and was able to verbalize understanding and provide teach back of education topics discussed . The patient was provided with the opportunity to ask questions and all questions were answered. Patient Assessment Assess patient education level/literacy/barriers, patient has visual impairment Patient questions/concerns patient at visit with her daughter Patient using freestyle Stephon 3 to test glucose Patient's average glucose for the past 14 days 123 mg/dL Patient above target 10% At target 90% Below target 0% Patient's last A1c 7.4% on 05/04/2024, down from 10.2 in 01/2024 Patient's daughter asked for assistance in assisting new Stephon 3 sensor Instructed patient sensors water proof you can shower, or swim do not submerge sensor in water for over 30 minutes Is sensor falls off cannot put back in you need to replace sensor, customer service number given to patient for sensor replacement Sensor placed on the back of right arm Patient left visit with sensor in warmup Medications (If applicable) * Name of medication * Dosing/administration instructions * Mechanism of action * Potential side effects * Potential adverse reaction and appropriate treatment * Review onset, peak, duration Assess for concerns re: insurance coverage, cost, barriers to compliance Insulin/Injectables (If applicable) * Storage/care of insulin * Injection sites * Site rotation * Onset, peak, duration * Drawing up insulin * Injecting insulin/other injectables * Sharps disposal Continuous blood glucose monitoring (if applicable) Hypoglycemia and Hyperglycemia * Signs and symptoms * Causes * Treatment * Preventing hypoglycemia * When to seek medical attention Medical alert bracelet Lifestyle * Work * Travel * Stress management * Problem solving Know your goals * A1C * Blood sugar targets * Blood pressure * Cholesterol/LDL Urine microalbumin Educational Materials: The patient was provided with the following written educational materials: ADCES 7 Healthy Behaviors Reducing Risks handout Patient Response to instructions: Comprehension of Instructions: Good Readiness to make changes: action How confident they feel about making changes: Positive Portions of this note were created using voice recognition software, please excuse any words or phrases that may have been misinterpreted. Patient Instructions: Incluir actividad diaria regular. ADA recomienda 30 minutos de ejercicio 5 d?as a la semana. P?rdida de peso, hable con el PCP o el cardi?logo antes de comenzar un nuevo plan. Mida el nivel de az?car en la deb seg?n las indicaciones; Ayuno y comida m?s christine de 2hpp. Observe las tendencias en los resultados. Utilice los resultados y eval?e c?mo los alimentos, la actividad f?vonda y los medicamentos afectan los resultados de az?car en la deb. Lleve el gluc?metro o CGM a la pr?xima visita. Conocer los medicamentos para la diabetes, denson acci?n, los efectos secundarios, la eficacia, la toxicidad, la dosis prescrita, el momento y la frecuencia de administraci?n apropiados, el efecto de las dosis olvidadas y retrasadas y las instrucciones de almacenamiento, viaje y seguridad. T?cnicas de resoluci?n de problemas para el seguimiento de episodios de hipo/hiperglucemia y tratamientos. Reducir los comportamientos de reducci?n de riesgos, dejar de fumar, ex?menes regulares de ojos, pies y dentales. Coding Level of Care Code Est Pt Level 1 (05117) Diagnoses Uncontrolled type 2 diabetes mellitus with hyperglycemia E11.65 Glycemic state: with hyperglycemia
== END 2024-06-09 13:46 | disposition home or self-care (01) ==
PROVIDERS: PCP Internal Medicine; Visit Provider Registered Nurse Diabetes Educator
DX: E11.65 Type 2 diabetes mellitus with hyperglycemia (principal)

== ENCOUNTER → 2024-06-09 12:41 | Outpatient (BNVA) | payer MEDICARE, SELFPAY | PROVIDERS: PCP Internal Medicine; Visit Provider Registered Nurse Diabetes Educator | DX: E11.65 Type 2 diabetes mellitus with hyperglycemia (principal); Z71.89 Other specified counseling | CPT/HCPCS: 99211 ==

== ENCOUNTER 2024-06-15 13:23 | Outpatient (AMB) | payer MEDICARE, MEDICAID, SELFPAY ==
[2024-06-15 13:31] VITALS: BP 118/72; BMI 26.8
--- NOTE | 2024-06-15 13:31 | A.OFFPC_ITS ---
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: No Accompanied by: Daughter Allergies lisinopril Allergy (Severe, Verified 06/15/24 13:42) Swelling metformin Allergy (Intermediate, Verified 06/15/24 13:42) Intolerance, chest pain, high BP, diarrhea pantoprazole Allergy (Intermediate, Verified 06/15/24 13:42) rash quetiapine Allergy (Intermediate, Verified 06/15/24 13:42) chest pain orange juice Allergy (Intermediate, Uncoded 06/15/24 13:42) gerd Medication List - Last Reconciled 06/15/24 by Anabela Thompson MD acetaminophen (Tylenol) 325 mg PO QID PRN adhesive tape (Band-Aid Paper Tape) As directed amlodipine 10 mg PO DAILY 90 days aspirin (Adult Low Dose Aspirin) 81 mg PO DAILY atorvastatin 40 mg PO DAILY 90 days blood sugar diagnostic (FreeStyle Lite Strips) 3 times a day 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 meter (FreeStyle Lite Meter kit) 3 times a day 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 meter,continuous (FreeStyle Stephon 3 [place]) as directed 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 sensor (FreeStyle Stephon 3 Sensor device) apply new sensor every 14 days as directed 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 sensor (FreeStyle Stephon 3 Plus Sensor device) Apply 1 new sensor every 14 days as directed to monitor blood glucose continuously. chlorthalidone 25 mg PO DAILY cholecalciferol (vitamin D3) 25 mcg PO DAILY commode As directed dexlansoprazole 60 mg PO DAILY dicyclomine 20 mg PO QID 30 days dulaglutide (Trulicity) 1.5 mg (0.5 mL) subcut QWEEK 90 days empagliflozin (Jardiance) 25 mg PO QAM ezetimibe 10 mg PO DAILY 90 days gauze bandage (Band-Aid Gauze Pads) As directed glipizide ER 10 mg PO DAILY 90 days glucose (Dex4 Glucose) 16 grams (4 x 4 gram) PO Q15M PRN insulin glargine (Lantus Solostar U-100 Insulin) 10 units (0.1 mL) subcut QPM 90 days lancets (FreeStyle Lancets) 3 times a day loperamide (Imodium A-D) 2 mg PO BID metoclopramide HCl (Reglan) 10 mg PO QIDACHS omega-3 fatty acids-fish oil 300-1,000 mg 1 cap PO BID pen needle, diabetic (Comfort EZ Pen [place]) Use 1 pen needle once a day [personal wipes As directed] sennosides (Senna Laxative) 8.6 mg PO BEDTIME Shower Chair As directed simethicone (Gas Relief (simethicone)) 180 mg PO BID PRN 90 days tramadol 50 mg PO BID PRN 30 days [walker with seat As directed] [wheelchair As directed] Tobacco use date assessed: 02/04/24 Fall risk assessment: No Falls in past year Last assessed Fall Risk: 06/15/24 Dental Screening Dental Screen Date: 02/04/24 HPI HPI Comments History of Present Illness Details The patient is a 69-year-old female presenting with gastrointestinal complaints, including chronic constipation and the need to assess the adequacy of her current management for diabetes and associated conditions. She has a history of Type 2 Diabetes Mellitus, which has led to the development of diabetic gastroparesis and diabetic retinopathy resulting in vision loss. Her last hemoglobin A1c level was 7.4%, measured last month. She experiences alex quent urination throughout the night, impacting her sleep quality. Patient has been prescribed Metformin, which reportedly induced diarrhea, and Pantoprazole, which caused a rash. She is currently on various medications: 81 mg Aspirin, 40 mg Atorvastatin, Vitamin D supplements, 60 mg Dexlansoprazole, Dicyclomine for stomach issues, 1.5 mg Trulicity weekly, 25 mg Jardiance, 10 mg Zetia for cholesterol, 10 mg Glipizide, 10 units of Lantus daily for diabetes, and Metoclopramide for diabetic gastroparesis. She has not found the current medication regime effective in managing her bowel movements, and laxatives have provided minimal relief. The patient expressed dissatisfaction with her current still operator gin and wishes to change providers. [facility] Medical History (Updated 06/15/24 @ 13:58 by Anabela Thompson MD) Aortic stenosis Uncontrolled type 2 diabetes mellitus with hyperglycemia, with long-term current use of insulin Shortness of breath Chest pain Fissure in skin of foot Impacted cerumen of left ear Dyspepsia Cyst of skin Left shoulder pain Diabetes mellitus Hospital discharge follow-up Medicare annual wellness visit, subsequent Cellulitis of left leg Dementia Retinitis pigmentosa of both eyes GERD (gastroesophageal reflux disease) Obesity (BMI 30-39.9) Vitamin D deficiency Dyslipidemia Hypertension Diabetic polyneuropathy associated with type 2 diabetes mellitus Diabetic nephropathy associated with type 2 diabetes mellitus Diabetes type 2, uncontrolled Surgical History History of esophagogastroduodenoscopy (EGD) H/O colonoscopy Hx of cholecystectomy Hx of tubal ligation Hx of hernia repair Family History Father No problems noted. Mother Heart disease HTN (hypertension) Sister Pre-diabetes Brother Leukemia Son In good health Daughter In good health Daughter In good health Social History Household Members: Family Housing: Apartment Alcohol intake: never Patient Tobacco Use Status: Never used Tobacco e-Cigarette/Vaping Use: Never Used Second Hand Smoke Exposure: No service: No Current occupational status: disabled Cognitive needs: No Hearing needs: No Vision needs: No Questionnaire Thrive Questionnaire Date Thrive assessed: 02/04/24 KALIE-7 AMB Questionnaire KALIE-7 Date KALIE - 7 assessed: 02/04/24 Source: Developed by Drs. Jean Francis, Prisca Drew, Eliseo Suarez and colleagues, with an educational logan from [employer]. Review of Systems Const All systems reviewed & are unremarkable except as noted in HPI and below Card Denies chest pain at rest, Denies chest pain with activity, Denies edema, Denies irregular heart rhythm, Denies claudication, Denies dyspnea, Denies dyspnea on exertion, Denies orthopnea, Denies paroxysmal nocturnal dyspnea and Denies slow heart rate Resp Denies cough, Denies dyspnea and Denies dyspnea on exertion GI Denies abdominal pain, Denies change in bowel habits, Denies excessive flatus, Denies nausea and Denies vomiting Neuro Denies behavioral changes and Denies lack of coordination Psych Denies behavioral changes Physical exam (Primary Care) Vital Signs: Last Vital Signs BP 118/72 06/15/24 13:31 BMI result Body Mass Index 26.8 Tobacco/Smoking Status: Tobacco use Status Tobacco use date assessed 02/04/24 06/15/24 13:39 Patient Tobacco Use Status Never used Tobacco 06/15/24 13:39 e-Cigarette/Vaping Use Never Used 06/15/24 13:39 Thrive Assessment: Date of Thrive Assessment Date Thrive assessed 02/04/24 06/15/24 13:39 Resp Effort & Inspection: normal respiratory effort Auscultation: clear to auscultation bilaterally Cardio Jugular venous distension: no JVD Rate: regular rate Rhythm: regular rhythm Heart sounds: S1 normal heart sound present and S2 normal heart sound present Extrem General: Yes full ROM Office Procedures Flu Questionnaire Does the patient have a severe egg allergy?: No Does the patient have severe life threatening allergies?: No Does the patient have a fever or illness today?: No Has the patient ever had Guillain-[place] Syndrome?: No Has the patient ever had any past reaction to a flu shot?: No Immunizations Fluarix Triv [id number] (PF) 45 mcg (15 mcg x 3)/0.5 mL IM syringe Performing Provider: Anabela Thompson MD [facility] [place] [facility] Administered by: ALDO Sharma on 06/15/24 14:00 Dose Route Admin Location Dispensed Lot Number Expiration Date [facility] Front Facer 0.5 mL IM Right Deltoid 0.5 mL [id number] 01/24/25 [id number] VODECLIC VIS Given Date VIS Provided VIS Publication Date 06/15/24 Single Vaccine 21 Eligibility Eligibility Date Funding Source Not [facility] Eligible 06/15/24 Private Coding Level of Care Code Est Pt Level 4 (06899) Complex EM visit Add On G2211 Diagnoses Chronic GERD K21.9 Uncontrolled type 2 diabetes mellitus with hyperglycemia E11.65 Glycemic state: with hyperglycemia Essential hypertension I10 Hypertension type: essential hypertension Dyslipidemia E78.5 Time Spent (min) 23 Assessment & Plan Assessment & Plan (1) Chronic GERD: Code(s): K21.9 - Gastro-esophageal reflux disease without esophagitis Category: Medical (2) Diabetes type 2, uncontrolled: Code(s): E11.65 - Type 2 diabetes mellitus with hyperglycemia Category: Medical Qualifiers: Glycemic state: with hyperglycemia Qualified Code(s): E11.65 - Type 2 diabetes mellitus with hyperglycemia (3) Hypertension: Code(s): I10 - Essential (primary) hypertension Category: Medical Qualifiers: Hypertension type: essential hypertension Qualified Code(s): I10 - Essential (primary) hypertension (4) Dyslipidemia: Code(s): E78.5 - Hyperlipidemia, unspecified Category: Medical Plan - Type 2 Diabetes Mellitus and Complications: Continue current management with endocrinological oversight. The patient is advised to undergo laboratory tests during fasting to monitor glucose levels and cholesterol. - Diabetic Retinopathy: Continued care with ophthalmology advised; no new interventions at this time. - Diabetic Gastroparesis: Consider adjusting Metoclopramide dosage or evaluate the need for alternative prokinetic agents. - Constipation: Recommend switching laxatives if current ones prove ineffective; consider lactulose as discussed. - GERD: Continue with current GERD management. Consider gastrological referral for further evaluation due to suboptimal response to current regimen. - Hyperlipidemia: Continue statin - Hypertension: Continue losartan. BP goal is equal or less than 130/80 Patient was informed and verbally consented to the use of an ambient scribe for clinic note documentation during this visit. During the visit, we discussed the management of the patient's Type 2 Diabetes Mellitus and its complications. I explained the importance of close monitoring of blood glucose levels and maintaining target levels to prevent further complications. We reviewed the current medication regimen and side effects experienced, noting the ineffectiveness of some treatments and the side effects of Metformin, Pantoprazole, and Xerocol. The need for further laboratory evaluation to monitor her condition was explained. Discussions with her still operator gin did not prove satisfactory, and a referral to a new provider is planned. The risks and benefits of lactulose for constipation were shared, and the need for continued monitoring of her condition was emphasized. Orders: Orders Influenza [id number] Immunization Today Z23 - Encounter for immunization Microalbumin, Random (w Creat) Today R80.9 - Proteinuria, unspecified Vitamin D 25-OH Total Today E55.9 - Vitamin D deficiency, unspecified Lipid Panel Today E78.5 - Hyperlipidemia, unspecified Complete Blood Count Auto Diff Today D64.9 - Anemia, unspecified IRON PROFILE Today D64.9 - Anemia, unspecified Vitamin B12 and Folate Today E53.8 - Deficiency of other specified B group vitamins Comprehensive [place]. Panel Fast Today E11.65 - Type 2 diabetes mellitus with hyperglycemia, Z79.4 - [facility] (current) use of insulin [place] upper GI series Today K21.9 - Gastro-esophageal reflux disease without esophagitis Referrals Gastroenterology Referral K21.9 - Gastro-esophageal reflux disease without esophagitis Medications: New lactulose 10 grams (15 mL) PO BEDTIME PRN 237 mL 1RF constipation 30 days Refilled ezetimibe 10 mg PO DAILY 90 tabs 1RF 90 days E78.5 - Hyperlipidemia, unspecified Patient Instructions: - Continue scheduled medications as previously prescribed. - Arrange for laboratory tests on an empty stomach for cholesterol and glucose monitoring. - Monitor and log blood glucose levels routinely. - Administer lactulose for constipation as necessary. - Maintain follow-up with product grader. - Consider a referral to a new still operator gin at [facility] as discussed.
== END 2024-06-15 13:56 | disposition home or self-care (01) ==
PROVIDERS: PCP Internal Medicine; Visit Provider Internal Medicine
DX: K21.9 Gastro-esophageal reflux disease without esophagitis (principal); E11.65 Type 2 diabetes mellitus with hyperglycemia; I10 Essential (primary) hypertension; E78.5 Hyperlipidemia, unspecified; Z23 Encounter for immunization

== ENCOUNTER → 2024-06-15 13:23 | Outpatient (BNVA) | payer MEDICARE, MEDICAID, SELFPAY | PROVIDERS: PCP Internal Medicine; Visit Provider Internal Medicine | DX: Z23 Encounter for immunization (principal); E11.65 Type 2 diabetes mellitus with hyperglycemia; K21.9 Gastro-esophageal reflux disease without esophagitis; I10 Essential (primary) hypertension; E78.5 Hyperlipidemia, unspecified | CPT/HCPCS: 90471; 90656; 99212 ==

== ENCOUNTER 2024-06-16 12:07 | Outpatient (AMB) | payer MEDICARE, MEDICAID, SELFPAY ==
[2024-06-16 12:38] VITALS: BMI 26.6
--- NOTE | 2024-06-16 12:38 | A.OFFVIS_ITS ---
VS Expanded 06/16/24 12:38 Height 5 ft Weight 136 lb 7.458 oz BMI 26.6 Intake Visit Reasons: T2DM w hyperglycemia Allergies lisinopril Allergy (Severe, Verified 06/15/24 13:42) Swelling metformin Allergy (Intermediate, Verified 06/15/24 13:42) Intolerance, chest pain, high BP, diarrhea pantoprazole Allergy (Intermediate, Verified 06/15/24 13:42) rash quetiapine Allergy (Intermediate, Verified 06/15/24 13:42) chest pain orange juice Allergy (Intermediate, Uncoded 06/15/24 13:42) gerd Nutrition Presentation Details: Pt presents for MNT for T2DM Pt presents with daughter. Pt is blind Daughter reports Pt keeps active as able and moves legs and arms with reminders while sitting Daughter reports Pt appears to have multiple bowel movement after meals, some diarrhea/some formed bowels. Pt reports sometimes having wilson aches after meals Today will review a trial of lactose free sources of foods B% within target,no hypoglycemia , 12% above 180 mg/dl BS Monitoring Most Recent Diabetes Results: No Data to Display [facility] Medical History Aortic stenosis Uncontrolled type 2 diabetes mellitus with hyperglycemia, with long-term current use of insulin Shortness of breath Chest pain Fissure in skin of foot Impacted cerumen of left ear Dyspepsia Cyst of skin Left shoulder pain Diabetes mellitus Hospital discharge follow-up Medicare annual wellness visit, subsequent Cellulitis of left leg Dementia Retinitis pigmentosa of both eyes GERD (gastroesophageal reflux disease) Obesity (BMI 30-39.9) Vitamin D deficiency Dyslipidemia Hypertension Diabetic polyneuropathy associated with type 2 diabetes mellitus Diabetic nephropathy associated with type 2 diabetes mellitus Diabetes type 2, uncontrolled Surgical History History of esophagogastroduodenoscopy (EGD) H/O colonoscopy Hx of cholecystectomy Hx of tubal ligation Hx of hernia repair Family History Father No problems noted. Mother Heart disease HTN (hypertension) Sister Pre-diabetes Brother Leukemia Son In good health Daughter In good health Daughter In good health Social History Household Members: Family Housing: Apartment Alcohol intake: never Patient Tobacco Use Status: Never used Tobacco e-Cigarette/Vaping Use: Never Used Second Hand Smoke Exposure: No service: No Current occupational status: disabled Cognitive needs: No Hearing needs: No Vision needs: No Assessment & Plan Assessment & Plan (1) Diabetes type 2, uncontrolled: Code(s): E11.65 - Type 2 diabetes mellitus with hyperglycemia Category: Medical Qualifiers: Glycemic state: with hyperglycemia Qualified Code(s): E11.65 - Type 2 d iabetes mellitus with hyperglycemia Plan: Wt: 61 Kg ( 04/20 ), 61.8 kg(06/20) Est kcal needs as per MSJ: 6441-1703 (40% carb, 30% protein/fat) Est fluid needs as per 25-30 ml/d: 1800 Est prot per day as per 1 g/kg bw: 61 Recommend fiber intake : 8-10 g per day and gradually increase to 25-28 g per day for women and 35-38 g for men or as tolerated Recommend sodium intake per day : less than 1500 mg less than 2000 mg Educated patient on: ( R = reviewed V = verbalizes understanding N/R = needs review N/A = not applicable * Food sources of carbohydrate, adequate serving sizes and its role in various health conditions: R * Differences between complex carbohydrates a simple carbohydrates, role of fiber in diet: R V N/R * Lean protein sources of foods: R * Differences between types of fats and role in diet (mono on saturated fat fatty acids, saturated fatty acids, trans fats): R V N/R * Food sources of sodium in salt and healthy modifications for heart health in kidney health: R V R/V * Vitamins and minerals: R V N/R * Healthy plate method concept: R * Physical activity: Benefits a precaution: R V N/R * Hypoglycemia protocol (rule of 15): R V N/R * Dietary prevention of Hyperglycemia: R Patient Instructions: Try lactose free source of foods (lactaid milk or milk alternatives) choose oil in place of butter read labels for milk content of foods (pastries/breads as example ) Coding Level of Care Code Nutr Indiv Subseq (97875) Diagnoses Uncontrolled type 2 diabetes mellitus with hyperglycemia E11.65 Glycemic state: with hyperglycemia Time Spent (min) 30
== END 2024-06-16 13:25 | disposition home or self-care (01) ==
PROVIDERS: PCP Internal Medicine; Visit Provider Dietitian, Registered
DX: E11.65 Type 2 diabetes mellitus with hyperglycemia (principal)

== ENCOUNTER → 2024-06-16 12:07 | Outpatient (BNVA) | payer MEDICARE, MEDICAID, SELFPAY | PROVIDERS: PCP Internal Medicine; Visit Provider Dietitian, Registered | DX: E11.65 Type 2 diabetes mellitus with hyperglycemia (principal); E11.42 Type 2 diabetes mellitus with diabetic polyneuropathy; E11.21 Type 2 diabetes mellitus with diabetic nephropathy; E66.9 Obesity, unspecified; Z68.26 Body mass index [BMI] 26.0-26.9, adult; Z71.3 Dietary counseling and surveillance; Z79.4 Long term (current) use of insulin | CPT/HCPCS: 97803 ==

== ENCOUNTER 2024-07-02 09:01 | Outpatient (REF) | payer MEDICARE, MEDICAID, SELFPAY ==
[2024-07-02 09:26] LABS: MANUAL DIFF FLAG NO
[2024-07-02 09:41] LABS: Basophils Percent Auto 0.3 % (0-2); Eosinophils Absolute Auto 0.1 X10*3/uL (0.0-0.4); Eosinophils Percent Auto 1.7 % (0-4); Hematocrit 35.7 % (37.0-47.0); Hemoglobin 11.5 g/dl (12.0-16.0); Imm Gran Abs Auto 0.02 X10*3/uL (0.00-0.03); Imm Gran Pct Auto 0.3 % (0.0-0.4); Lymphocytes Absolute Auto 1.2 X10*3/uL (1.2-4.9); Mean Corpuscular HGB Conc 32.2 g/dl (31.0-35.0); Mean Corpuscular Hemoglobin 25.7 pg (27.0-33.0); Mean Corpuscular Volume 79.7 fL (80.0-98.0); Mean Platelet Volume 11.6 fL (9.4-12.3); Monocytes Absolute Auto 0.4 X10*3/uL (0.1-1.2); Monocytes Percent Auto 6.2 % (2-11); Neutrophils Absolute Auto 4.1 x10*3/uL (2.0-8.3); Neutrophils Percent Auto 70.5 % (45-73); Platelet Count 140 X10*3/uL (160-400); Red Blood Count 4.48 X10*6/uL (4.20-5.50); Red Cell Distribution Width 13.5 % (11.0-16.0); White Blood Count 5.9 X10*3/uL (4.8-10.8)
[2024-07-02 10:16] LABS: Creatinine Urine 63.32 mg/dL; Microalbum/Creatinine Ratio Ur 91.5 ug/mg cr (<30)
[2024-07-02 10:19] LABS: Alanine Aminotransferase 22 U/L (0-31); Albumin Level 4.3 g/dL (3.5-5.0); Alkaline Phosphatase 47 U/L (39-117); Anion Gap 12 (12-20); Aspartate Amino Transferase 21 U/L (5-31); Bilirubin Total 0.3 mg/dL (0.0-1.0); Blood Urea Nitrogen 18 mg/dL (9-16); Calcium 10.2 mg/dL (8.4-10.2); Carbon Dioxide 28 mmol/L (22-29); Chloride 107 mmol/L (96-108); Cholesterol 149 mg/dL (<200); Estimated Glomerular Filt Rate > 60; Glucose Fasting 98 mg/dL (60-99); HDL Cholesterol 42 mg/dL (>40); Iron 37 mcg/dL (30-160); LDL Cholesterol Calculated 72 mg/dL (<100); Percent Iron Saturation 14 % (15-50); Sodium 143 mmol/L (135-145); Total Iron Binding Capacity 258 mcg/dL (228-428); Total Protein 7.7 g/dL (6.5-8.0); Triglycerides 177 mg/dL (<150); Unsaturated Iron Binding 221 ug/dL
[2024-07-02 10:34] LABS: Vitamin D 25-OH Total 39.1 ng/mL (>30)
[2024-07-02 10:49] LABS: Folate 15.3 ng/mL (> or = 4.0); Vitamin B12 391 pg/mL (200-900)
--- OUTSIDE RECORDS SUMMARY | 2024-07-07 06:01 | XMS_ITS ---
Author Name [facility] Organization Unknown Results Test Name/Text Value Interpretation Date Range Source BKR ESTIMATED AVERAGE GLUCOSE 355mg/dL Normal [id number] [facility] Hgb A1c MFr Bld 14% Above high normal [id number] 4 - 5.6 [facility] Calcium SerPl-mCnc 10.1mg/dL Normal [id number] 8.8 - 10 .2 [facility] Anion Gap3 SerPl-sCnc 10 Normal [id number] 7 - 1 7 [facility] BUN SerPl-mCnc 16mg/dL Normal [id number] 8 - 23 [facility] HCO3 SerPl-sCnc 29mmol/L Normal [id number] 20 - 30 [facility] Creat SerPl-mCnc 0.55mg/dL Normal [id number] 0.4 - 1.3 [facility] Chloride SerPl-sCnc 97mmol/L Below low normal [id number] 98 - 107 [facility] BUN/Creat SerPl 29.1 Above high normal [id number] 8 - 23 [facility] GFR/BSA.pred SerPlBld OUS-YRW-MbSQyo 60mL/min/1.73 m2 Normal [id number] - [facility] Potassium SerPl-sCnc 4.6mmol/L Normal [id number] 3.3 - 5.3 [facility] Sodium SerPl-sCnc 136mmol/L Normal [id number] 136 - 144 [facility] Glucose SerPl-mCnc 406mg/dL Critically high [id number] 70 - 100 [facility] AST/ALT SerPl-cRto 0.8 Normal [id number] - [facility] ALP SerPl-cCnc 96U/L Normal [id number] 9 - 122 [facility] Bilirub Direct SerPl-mCnc 0.2mg/dL Normal [id number] - [facility] AST SerPl w P-5'-P-cCnc 15U/L Normal 10 - 35 [facility] Albumin/Glob SerPl 1.2 Normal 1 - 2.2 [facility] Albumin SerPl BCG-mCnc 4.4g/dL Normal 3.6 - 5.1 [facility] ALT SerPl w/o P-5'-P-cCnc 19U/L Normal 10 - 35 [facility] Globulin Plas-mCnc 3.7g/dL Normal 2 - 3.9 [facility] Prot SerPl-mCnc 8.1g/dL Normal 5.9 - 8.3 [facility] Bilirub SerPl-mCnc 0.2mg/dL Normal - [facility] Monocytes # Bld Auto 0.03l0121/uL Normal 0 - 1 [facility] nRBC/100 WBC Bld Auto-Rto 0% Normal 0 - 1 [facility] Neutrophils # Bld Auto 3.55t7188/uL Normal 2 - 7.6 [facility] Eosinophil # Bld Auto 0.11r3228/uL Normal 0 - 1 [facility] nRBC # Bld Auto 1n6215/uL Normal [id number] 0 - 1 [facility] MCHC RBC Auto-mCnc 31g/dL Normal 31 - 36 [facility] Monocytes/leuk NFr Bld Auto 5.3% Normal 4 - 12 [facility] Basophils # Bld Auto 0.09f8647/uL Normal 0 - 1 [facility] WBC # Bld Auto 5.3r2207/uL Normal 4 - 11 [facility] Hct VFr Bld Auto 40.6% Normal 35 - 45 [facility] RDW RBC Auto-Rto 13.2% Normal 11 - 15 [facility] PMV Bld Auto 12.3fL Above high normal [id number] 8 - 12 [facility] Eosinophil/leuk NFr Bld Auto 1.7% Normal [id number] 0 - 5 [facility] MCH RBC Qn Auto 24.4pg Below low normal [id number] 27 - 33 [facility] Basophils/leuk NFr Bld Auto 0.4% Normal [id number] 0 - 1.4 [facility] Lymphocytes # Bld Auto 1.76u7874/uL Normal 0.6 - 3.7 [facility] RBC # Bld Auto 5.16M/uL Normal [id number] 4 - 6 [facility] Neutrophils/leuk NFr Bld Auto 71.9% Normal 39 - 72 [facility] Imm Granulocytes # Bld Auto 0.26j3622/uL Normal [id number] 0 - 0.3 [facility] Platelet # Bld Auto 629d4218/uL Below low normal [id number] 1 150 - 420 [facility] MCV RBC Auto 78.7fL Below low normal [id number] 80 - 10 0 [facility] Lymphocytes/leuk NFr Bld Auto 20.3% Normal 17 - 50 [facility] Imm Granulocytes/leuk NFr Bld Auto 0.4% Normal 0 - 1 [facility] Hgb Bld-mCnc 12.6g/dL Normal 11.7 - 15.5 [facility]
== END 2024-07-02 09:02 | disposition home or self-care (01) ==
LOC: HO.LAB 09:01
PROVIDERS: PCP Internal Medicine; Visit Provider Internal Medicine
DX: D64.9 Anemia, unspecified (principal); R80.9 Proteinuria, unspecified; E55.9 Vitamin D deficiency, unspecified; E78.5 Hyperlipidemia, unspecified; E11.65 Type 2 diabetes mellitus with hyperglycemia; Z79.4 Long term (current) use of insulin; E53.8 Deficiency of other specified B group vitamins
CPT/HCPCS: 36415; 80053; 80061; 82043; 82306; 82570; 82607; 82746; 83540; 85025

== ENCOUNTER 2024-09-08 07:59 | Outpatient (AMB) | payer MEDICARE, MEDICAID, SELFPAY ==
--- OUTSIDE RECORDS SUMMARY | 2024-09-08 08:02 | XMS_ITS | Clinical Summary ---
Author Organization [facility] Address [address] [place] [address], [place] [address] Care Team Providers Care Pi/Senior Research Associate Name Role Phone Anabela Jin MD Primary Care Provider [phone] Allergies Active Allergy Reactions Criticality Noted Date Comments Insulin Glargine Other (see comments) 1 Chest pain Metformin Other (see comments) 10/30/2020 Medications aspirin (ST JOSEMANUEL) 81 MG EC tablet Take 1 tablet by mouth 1 (one) time each day Active atorvastatin (LIPITOR) 40 MG tablet Take 1 tablet by mouth 1 (one) time each day Active Dulaglutide (Trulicity) 0.75 MG/0.5ML solution pen-injector Inject 1 pre-filled pen syringe under the skin Active glipiZIDE (GLUCOTROL XL) 5 MG 24 hr tablet Take 1 tablet by mouth 1 (one) time each day Active insulin glargine (Lantus) 100 UNIT/ML injection Inject 60 Units under the skin at bed time Active lisinopril (PRINIVIL,ZESTR IL) 40 MG tablet Take 1 tablet by mouth 1 (one) time each day Active omeprazole (PriLOSEC) [address] capsule Take 1 capsule by mouth 1 (one) time each day Active Jardiance 25 MG tablet TOME MARLENA TABLETA VIA ORAL CADA MANANA 1 Active naproxen (NAPROSYN) 500 MG tablet TOME MARLENA TABLETA VIA ORAL CADA 12 HORAS CASEY SEA NECESARIO PARA EL DOLOR 1 Active amLODIPine (NORVASC) 5 MG tabletIndicatio ns:Hypertension TAKE ONE TABLET BY MOUTH EVERY DAY 90 tablet 1 4 Active Active Problems Problem Noted Date Diagnosed Date Chronic kidney disease, stage 2 (mild) 02/07/202 2 Hypertensive renal disease 10/30/2020 Proteinuria 10/30/2020 Renal disorder due to type 2 diabetes mellitus 0 10/30/2020 Immunizations Name Administration Dates Next Due Pfizer SARS-COV-2 01/13/2021,12/23/2020 Family History Medical History Relation Comments Hypertension Child 1 daughter Diabetes Child 2 daughter Heart disease Mother Hypertension Mother Hypertension Sibling brother Relation Status Comments Child 1 Child 2 Father Mother Alive Sibling Social History Tobacco Use Types Packs/Day Years Used Date Smoking Tobacco: Never Alcohol Use Standard Drinks/Week Comments No 0 (1 standard drink = 0.6 oz pur e alcohol) Comments Unknown Sex and Gender Information Value Date Recorded Sex Assigned at Not on file Legal Sex Female 4:44 PM EST Gender Identity Not on file Sexual Orientation Not on file Last Filed Vital Signs Vital Sign Reading Time Taken Comments Blood Pressure 126/80 09/03/2021 1:57 PM EST Pulse 88 09/03/2021 1:57 PM EST Temperature - - Respiratory Rate - - Oxygen Saturation 99% 09/03/2021 1:57 PM EST Inhaled Oxygen Concentration - - Weight 66.3 kg (146 lb 3.2 oz) 09/03/2021 1:57 P M EST Height 152.4 cm (5') 05/03/2019 12:00 PM EDT Body Mass Index 28.55 05/03/2019 12:00 PM EDT Plan of Treatment Health Maintenance Due Date Last Done Comments Breast Cancer Screening 1954 Pneumococcal Vaccine: 65+ Ye ars (1 of 2 - PCV) 1960 Colorectal Cancer Screening: Annual FOBT 2003 Colorectal Cancer Screening: Colonoscopy 2003 Colorectal Cancer Screening: Sigmoidoscopy 2003 Diabetes: Hemoglobin A1C 08/27/2020 Diabetes: Ophthalmology Exam 08/27/2020 Diabetes: Pedal Pulse Checked 08/27/2020 Diabetes: Sensory Foot Exam 08/27/2020 Diabetes: Visual Foot Exam 08/27/2020 Influenza Vaccine (#1) 2024 Hepatitis B Vaccine Aged Out No longe r eligible based on patient's age to complete this topic Insurance [place] Care Teams Pi/Senior Research Associate Relationship Specialty Start Date End Date Anabela Jin MD [address] [place], [place] PCP - General Internal Medicine 09/03/21
--- OUTSIDE RECORDS SUMMARY | 2024-09-08 08:02 | XMS_ITS | Clinical Summary ---
Author Organization [employer] [facility] Address [address] [place] [address] Care Team Providers Care Animal Trapper Name Role Phone Unavailable Primary Care Provider Unavailabl e Allergies Active Allergy Reactions Criticality Noted Date Comments Insulin Glargine 02/17/2021 Other reaction(s): Other (see comments) Chest pain Chest pain Metformin Palpitations Medium 10/30/2020 Other reaction(s): Other (chest pain) Immunizations Name Administration Dates Next Due Influenza High-dose Quadriva lent Preservative Free 07/02/2022 Influenza injectable quadriv alent IIV4 with preservative 05/26/2018,06/05/2017 Influenza injectable quadriv alent preservative free 04/04/2023 Influenza, High Dose Seasona l, Preservative Free 06/10/2019 Influenza, IIV3, injectable 09/22/2015 Pfizer Covid-19 Vaccine 12+ 01/13/2021, Pfizer Covid-19 Vaccine 12+ Bivalent 07/02/2022 Pfizer Covid-19 Vaccine 12+ nino-sucrose (Maldonado Cap) 11/28/2021,01/13/2021,12/23/2020 Pneumococcal Conjugate PCV 20 12/07/2021 Pneumococcal Polysaccharide PPSV23 11/15/2020, Zoster, Recombinant 02/01/2022,11/28/2021 Social History Tobacco Use Types Packs/Day Years Used Date Smoking Tobacco: Never Assessed Comments Unknown Sex and Gender Information Value Date Recorded Sex Assigned at Female 05/27/2022 10:29 AM EDT Legal Sex Female 10:29 AM EDT Gender Identity Female 05/27/2022 10:29 AM EDT Sexual Orientation Straight 05/27/2022 10 :29 AM EDT Plan of Treatment Health Maintenance Due Date Last Done Comments CT Colonography 1954 Colonoscopy 1954 Colorectal Cancer Screening 1954 Depression Screening 1954 FIT DNA/Cologuard 1954 FIT 1954 FOBT 1954 Lipid Panel 1954 SDOH Screening 1954 Sigmoidoscopy 1954 Alcohol/Substance Use Screening 1966 Tobacco Screening 1966 Hepatitis C Screening 1972 DTaP/Tdap/Td Vaccines (1 - Tdap) 1973 Mammogram 1994 COVID-19 Vaccine (2023- season) 2024 07/02/2022, 11/28/2021, 01/13/2021, Additional history exists Influenza Vaccine (#1) 2024 , 07/02/2022, 06/10/2019, Additional history exists RSV Patients and Patients Aged 60 years or older (1 - 1-dose 75+ series) 2029 Pneumococcal Vaccine: 50+ Years Completed 12/07/2021, 11/15/2020, 11/23/2015 Zoster Vaccines Completed 02/01/2022, 11/28/2021 HIB Vaccines Aged Out No longer eligi ble based on patient's age to complete this topic HPV Vaccines Aged Out No longer eligi ble based on patient's age to complete this topic Hepatitis A Vaccines Aged Out No long er eligible based on patient's age to complete this topic Hepatitis B Vaccines Aged Out No long er eligible based on patient's age to complete this topic IPV Vaccines Aged Out No longer eligi ble based on patient's age to complete this topic Meningococcal Vaccine Aged Out No raj talha eligible based on patient's age to complete this topic RSV under 20 months Aged Out No longe r eligible based on patient's age to complete this topic Rotavirus Vaccines Aged Out No longer eligible based on patient's age to complete this topic Insurance [facility] STANDARD MEDICARE
--- OUTSIDE RECORDS SUMMARY | 2024-09-08 08:02 | XMS_ITS | Encounter Summary ---
Author Organization [facility] Address [address] [place] [address] Phone -[phone] Care Team Providers Care Clinical Provider Trainer Name Role Phone Anabela Jin MD Primary Care Provid er Reason for Visit * Reason Comments Medication Refill Encounter Details Date Type Department Care Team (Late st Contact Info) Description 02/25/2024 Refill [facility] [address], [place] [id number] Jewell Estrada APRN [address] [place] [address] Medication Refill Social History Tobacco Use Types Packs/Day Years Used Date Smoking Tobacco: Never Smokeless Tobacco: Never PHQ-2 Answer Date Recorded PHQ-2 Total Score 0 12/18/2023 Comments No Sex and Gender Information Value Date Recorded Sex Assigned at Not on file Legal Sex Female 10:15 AM EDT Gender Identity Not on file Sexual Orientation Not on file documented as of this encounter Plan of Treatment Not on file documented as of this encounter Visit Diagnoses Not on filedocumented in this encounter Additional Health Concerns Assessment Noted Time PHQ-9 Depression Total Score: 0 12/18/19 24 9:05 AM EDT documented as of this encounter Care Teams Clinical Provider Trainer Relationship Specialty Start Date End Date Anabela Jin MD [address] [place], [place] [phone] PCP - General Internal Medicine 11/24/23 documented as of this encounter
--- OUTSIDE RECORDS SUMMARY | 2024-09-08 08:02 | XMS_ITS | Encounter Summary ---
Author Organization [facility] Address [address] [place] [address] Phone -[phone] Care Team Providers Care Mortgage Advisor Name Role Phone Anabela Jin MD Primary Care Provid er Reason for Visit * Reason Onset Date Comments Medication Problem 12/29/2023 semaglutide ( OZEMPIC) 0.25 mg or 0.5 mg (2 mg/3 mL) pen injector Advice Only 12/29/2023 Encounter Details Date Type Department Care Team ([facility] st Contact Info) Description 12/29/2023 [place] [address] Anabela Jin MD [address] [place] [address] [place] [phone] Medication Problem (semaglutide (OZEMPIC) 0.25 mg or 0.5 mg (2 mg/3 mL) pen injector); Advice Only Social History Tobacco Use Types Packs/Day Years Used Date Smoking Tobacco: Never Smokeless Tobacco: Never PHQ-2 Answer Date Recorded PHQ-2 Total Score 0 12/18/2023 Comments Unknown Sex and Gender Information Value Date Recorded Sex Assigned at Not on file Legal Sex Female 10:15 AM EDT Gender Identity Not on file Sexual Orientation Not on file documented as of this encounter Miscellaneous Notes * Telephone Encounter - Josephine James RN - 12/29/2023 4:15 PM EDT #[id number] dutch interpretor Called back pt and relayed medication instructions on ozempic medication : semaglutide (OZEMPIC) 0.25 mg or 0.5 mg (2 mg/3 mL) pen injector 3 mL 0 12/25/2023 -- Sig - Route: Inject 0.5 mg under the skin every 7 days. - Subcutaneous Pt verbalized understanding. Advise if pt has any further questions to call back clinic * Telephone Encounter - Janina Sidhu - 12/29/2023 3:47 PM EDT Reason for call: Medication question Medication Issue/Schedule Appointment F/FU/Authorization Request: states she didn't understand the previous call with spanish interpreter states line was cutting out and requesting a callback to get clarification on Rx if pt has to take .25 or 0.5mg and for how long please callback to advise Specify Name of Medication: semaglutide (OZEMPIC) 0.25 mg or 0.5 mg (2 mg/3 mL) pen injector Refill status:0 Preferred Language:dutch Caller was aware message would be routed to PCP team for review and F/U. Caller made aware of form policy. Caller verbalized understating and had no further question at this time. * Telephone Encounter - Priscilla Wilson - 12/29/2023 9:14 AM EDT Reason for call:states she didn't understand the previous call with spanish interpreter states line was cutting out and requesting a callback to get clarification on Rx if pt has to take .25 and for how longplease callback to advise Medication Issue/Schedule Appointment F/FU/Authorization Request: Specify Name of Medication:semaglutide (OZEMPIC) 0.25 mg or 0.5 mg (2 mg/3 mL) pen injector Refill status:0 Preferred Language:dutch Caller was aware message would be routed to PCP team for review and F/U. Caller made aware of form policy. Caller verbalized understating and had no further question at this time. documented in this encounter Plan of Treatment Not on file documented as of this encounter Visit Diagnoses Not on filedocumented in this encounter Additional Health Concerns Assessment Noted Time PHQ-9 Depression Total Score: 0 12/18/19 9:05 AM EDT documented as of this encounter Care Teams Mortgage Advisor Relationship Specialty Start Date End Date Anabela Jin MD [address] [place] [address] [place] [phone] PCP - General Internal Medicine 11/24/23 documented as of this encounter
--- OUTSIDE RECORDS SUMMARY | 2024-09-08 08:02 | XMS_ITS | Clinical Summary ---
Author Organization [facility] Address [address] [place] [address] Phone Care Team Providers Care Tree Puller Name Role Phone Anabela Jin MD Primary Care Provid er Allergies No known active allergies Medications dexlansoprazole (DEXILANT) 60 mg capsule Take 1 capsule (60 mg total) by mouth daily. 4 Active dicyclomine (BENTYL) 20 mg tablet Take 1 tablet (20 mg total) by mouth every 6 (six) hours. Active JARDIANCE 25 mg tablet TOME MARLENA TABLETA VIA ORAL CADA MANANA 4 Active glipiZIDE XL (GLUCOTROL XL) 5 mg 24 hr tablet Take 1 tablet (5 mg total) by mouth daily. Active simethicone (GAS-X ULTRA-STRENGTH) 180 mg capsule TOME MARLENA CAPSULA VIA ORAL DOS VECES AL SAMAN CASEY SEA NECESARIO FOR ABDOMINAL DISTENSION. 4 Active chlorthalidone (HYGROTEN) 25 mg tabletIndications :Essential hypertension Take 1 tablet (25 mg total) by mouth daily. 30 tablet 11 4 Active atorvastatin (LIPITOR) 40 mg tabletIndications :Dyslipidemia associated with type 2 diabetes mellitus (HC Code) Take 1 tablet (40 mg total) by mouth daily. 90 tablet 1 4 Active insulin pen needle, 4 mm x 32 gaugeIndications: Type 2 diabetes mellitus with hyperglycemia, without long-term current use of insulin (HC Code) Use daily to administer Victoza 100 each 1 4 Active amLODIPine (NORVASC) 5 mg tablet Take 1 tablet (5 mg total) by mouth daily. 30 tablet 1 4 Active traMADoL (ULTRAM) 50 mg tabletIndications :pain Take 1 tablet (50 mg total) by mouth as needed for pain (Arm pain). Active naproxen (NAPROSYN) 500 mg tabletIndications :pain Take 1 tablet (500 mg total) by mouth as needed for pain (Muscle spasms). Active semaglutide (OZEMPIC) 1 mg/dose (4 mg/3 mL) pen injectorIndicatio ns:Type 2 diabetes mellitus with hyperglycemia, without long-term current use of insulin (HC Code) Inject 0.75 mLs (1 mg total) under the skin once a week. 3 mL 4 Active aspirin 81 mg EC delayed release tabletIndications :Type 2 diabetes mellitus with hyperglycemia, without long-term current use of insulin (HC Code) Take 1 tablet (81 mg total) by mouth daily. 90 tablet 3 4 Active Active Problems Problem Noted Date Diagnosed Date Dyslipidemia associated with type 2 diabetes yi litus 12/25/2023 Type 2 diabetes mellitus wit h hyperglycemia, without long-term current use of insulin 12/18/2023 Essential hypertension 12/18/2023 Irritable bowel syndrome, unspecified type 12/17 Social History Tobacco Use Types Packs/Day Years Used Date Smoking Tobacco: Never Smokeless Tobacco: Never Tobacco Cessation:Counseling Given: Not Answered PHQ-2 Answer Date Recorded PHQ-2 Total Score 0 12/18/2023 Comments No Sex and Gender Information Value Date Recorded Sex Assigned at Not on file Legal Sex Female 10:15 AM EDT Gender Identity Not on file Sexual Orientation Not on file Last Filed Vital Signs Vital Sign Reading Time Taken Comments Blood Pressure 151/84 01/15/2024 1:52 PM EDT Pulse 99 01/15/2024 1:52 PM EDT Temperature 36.9 ??C (98.4 ??F) 01/13/2024 3:38 PM ED T Respiratory Rate 16 01/13/2024 3:38 PM EDT Oxygen Saturation 95% 01/15/2024 1:52 PM EDT Inhaled Oxygen Concentration - - Weight 65.9 kg (145 lb 4.5 oz) 01/15/2024 1:52 P M EDT Height 149.5 cm (4' 10.86 ) 01/13/2024 3:38 PM E DT Body Mass Index 29.49 01/13/2024 3:38 PM EDT Plan of Treatment Health Maintenance Due Date Last Done Comments Diabetic eye exam 1964 Diabetic foot exam 1964 HIV screening 1967 Hepatitis C screening 1972 Tetanus adult (Td q 10,TDAP once) 1974 Breast cancer screening 1994 Colon cancer screening, Colonoscopy 1999 RSV Discussion (1 - Risk 60-74 years 1-dose series) 2014 Osteoporosis screening (bone density) 2019 Influenza vaccine 02/26/2024 04/04/2023, , 06/10/2019, Additional history exists Hemoglobin A1C 03/19/2024 12/18/2023, 11/24/2023 Covid-19 vaccine series ( season) 2024 07/02/2022, 11/28/2021, 01/13/2021, Additional history exists LDL monitoring 12/17/2024 12/18/2023 Urine Microalbumin 01/14/2025 01/15/2024, 12/18/2023 Pneumo Vaccine 65+ Completed 12/07/2021, 0 11/15/2020, 11/23/2015 Shingles vaccine (Shingrix) Completed 02/01/2022, 0 11/28/2021 Cervical cancer screening Discontinued Meningococcal Vaccine Aged Out No raj talha eligible based on patient's age to complete this topic Procedures Procedure Name Priority Date/Time Associated Diagnosis Comments ALBUMIN/CREATININE PANEL, URINE, RANDOM Routine 01/15/2024 9:09 AM EDT Type 2 diabetes mellitus with hyperglycemia, without long-term current use of insulin (HC Code) (HC CODE) (HC Code) LIPID PANEL WITH REFLEX TO DIRECT LDL (Q) Routine 12/18/2023 11:43 AM EDT Type 2 diabetes mellitus with hyperglycemia, without long-term current use of insulin (HC Code) (HC CODE) (HC Code) POCT GLYCOSYLATED HEMOGLOBIN (HGBA1C), TOTAL Routine 12/18/2023 9:13 AM EDT Hyperglycemia from Last 3 Months or Most Recently Relevant to Health Maintenance Results * (ABNORMAL) Albumin/creatinine panel, urine, random (01/15/2024 9:09 AM EDT) Pathologist [facility] [place] Creatinine, Random Urine 166 20 - 275 mg/dL [facility] Microalbumin, Urine 10.4 See Note: mg/dL [facility] Comment: Reference Range: Reference Range Not established Microalb Creat Ratio 63(H) <30 mg/g creat [facility] Comment: The ADA defines abnormalities in albumin excretion as follows: Albuminuria Category ?Result (mg/g creatinine) Normal to Mildly increased ?? <30 Moderately increased ? 30-299 Severely increased ? > OR = 300 The ADA recommends that at least two of three specimens collected within a 3-6 month period be abnormal before considering a patient to be within a diagnostic category. Urine 01/15/2024 9:09 AM EDT 01/15/2024 9:09 AM EDT Narrative [facility] - 01/16/2024 3:45 PM EDT FASTING:NO FASTING: NO Resulting Agency Comment Performing Lab: ?Site ID: [id number] ?Name: [employer] [facility] ?Address: [address] [place] [phone] ?Director: Robbin Monroy M.D. us Jewell Estrada APRN URINE ORDERABLES Final Result [facility] [address] * (ABNORMAL) Lipid panel with reflex to direct LDL (Q) (12/18/2023 11:43 AM EDT) [facility] Cholesterol, Total 284(H) <200 mg/dL [facility] HDL 50 > OR = 50 mg/dL [facility] Triglycerides 277(H) <150 mg/dL [facility] Comment: If a non-fasting specimen was collected, consider repeat triglyceride testing on a fasting specimen if clinically indicated. Zaria et al. J. of Clin. Lipidol. 2015;9:129-169. LDL Cholesterol 185(H) mg/dL (calc) [facility] Comment: Reference range: <100 Desirable range <100 mg/dL for primary prevention; ?? <70 mg/dL for patients with CHD or diabetic patients with > or = 2 CHD risk factors. LDL-C is now calculated using the Wade-Rad calculation, which is a validated novel method providing better accuracy than the Friedewald equation in the estimation of LDL-C. Wade VARGAS et al. MAXIMILIANO. 2013;310(19): 8108-4828 (http://education.[employer].Branders.com/faq/NYL275) Chol/HDL Ratio 5.7(H) <5.0 (calc) [facility] Non-HDL Cholesterol 234(H) <130 mg/dL (calc) [facility] Comment: Non-HDL level > or = 220 is very high and may indicate genetic familial hypercholesterolemia (FH). Clinical assessment and measurement of blood lipid levels should be considered for all first-degree relatives of patients with an FH diagnosis. For patients with diabetes plus 1 major ASCVD risk factor, treating to a non-HDL-C goal of <100 mg/dL (LDL-C of <70 mg/dL) is considered a therapeutic option. Blood 12/18/2023 11:4 3 AM EDT 12/18/2023 11:44 AM EDT Narrative [facility] - 12/21/2023 8:14 PM EDT FASTING:YES FASTING: YES Resulting Agency Comment Performing Lab: ?Site ID: [id number] ?Name: [employer] ?Address: [address] [place] [phone] ?Director: Robbin Monroy M.D. Jewell Estrada APRN LAB BLOOD ORDERABLES Final Re sult [facility] [address] [place] [address] * POCT glycosylated hemoglobin (HgbA1c), total (14632) (12/18/2023 9:13 AM EDT) Hemoglobin A1C, POC 11.3 4.0 - 6.0 % [facility] Test Lot Number [id number] [facility] Test Lot Exp Date 09/08/25 Date Format: MM/DD/YYYY [facility] 12/18/2023 9:13 AM EDT Jewell Estrada APRN POINT OF CARE TEST ORDERABLES Final Result Performing Organization Address [facility] Co de Phone Number [facility] from Last 3 Months or Most Recently Relevant to Health Maintenance Insurance MEDICARE [id number] MEDICAID MEDICARE [id number] MEDICAID MEDICAID [place] [employer] [facility] MEDICARE [id number] MEDICAID Care Teams Tree Puller Relationship Specialty Start Date End Date Anabela Jin MD [address] [place] [address] [place] [phone] PCP - General Internal Medicine 11/24/23
--- OUTSIDE RECORDS SUMMARY | 2024-09-08 08:02 | XMS_ITS | Clinical Summary ---
Author Organization [facility] Address [address] [place] [address] Care Team Providers Care Product Marketing Analyst Name Role Phone Anabela Jin MD Primary Care Provider [phone] Allergies Active Allergy Reactions Criticality Noted Date Comments Insulin Glargine Other (See Comments) Chest pain Metformin Unknown/Patient and Family Unable to Define Medium 10/30/2020 Medications Medication Sig Dispensed Refills Start Date End Date Status OMEprazole (PriLOSEC) 20 MG capsule Take 1 capsule by mouth. Active Jardiance 25 MG tablet 01/19/2021 Active lisinopril (PRINIVIL,ZeSTRIL) 40 MG tablet Take 1 tablet by mouth. Active amLODIPine (NORVASC) 5 MG tablet Comments: Filled Date: Aug 21 2020 1:23PM Patient Notes: TAKE 1 TABLET BY MOUTH ONCE A DAY Duration: 90 08/21/2020 Active mirtazapine (REMERON) 45 MG tablet 01/19/2021 Active naproxen (NAPROSYN) 500 MG tablet 01/22/2021 Active atorvastatin (LIPITOR) 80 MG tablet 12/15/2020 Active dicyclomine (BENTYL) 20 MG tablet Take 10 mg by mouth 4 (four) times a day. Active dulaglutide (TRULICITY) 0.75 MG/0.5ML subcutaneous injection Inject 0.75 mg under the skin once a week. Active cephalexin (KEFLEX) 500 MG capsule Take 1 capsule (500 mg total) by mouth 4 (four) times a day. Take as directed or until you run out 28 capsule 02/17/2021 Active neomycin-bacitracin -polymyxin B (NEOSPORIN) ointment Apply 1 application topically 2 (two) times a day. 15 g 02/17/2021 Active Immunizations Name Administration Dates Next Due Covid-19 MRNA Vaccine - Pfizer 12+ (Purple Cap) 01/13/2021,12/23/2020 Social History Tobacco Use Types Packs/Day Years Used Date Smoking Tobacco: Never Smokeless Tobacco: Never Alcohol Use Standard Drinks/Week Comments Never 0 (1 standard drink = 0.6 oz pur e alcohol) Sex and Gender Information Value Date Recorded Sex Assigned at Not on file Gender Identity Not on file Sexual Orientation Not on file Last Filed Vital Signs Vital Sign Reading Time Taken Comments Blood Pressure 136/74 02/17/2021 12:50 PM EDT Pulse 95 02/17/2021 1:15 PM EDT Temperature 36.7 ??C (98.1 ??F) 02/17/2021 12:50 PM E DT Respiratory Rate 16 02/17/2021 12:50 PM EDT Oxygen Saturation 99% 02/17/2021 12:50 PM EDT Inhaled Oxygen Concentration - - Weight 65.8 kg (145 lb) 02/17/2021 12:50 PM EDT Height 152.4 cm (5') 02/17/2021 12:50 PM EDT Body Mass Index 28.32 02/17/2021 12:50 PM EDT Plan of Treatment Health Maintenance Due Date Last Done Comments Hepatitis C Virus Screening 1954 DTaP/Tdap/Td Vaccines (1 - Tdap) 1973 Mammogram 1994 Colonoscopy 1999 Pneumococcal Vaccines 50+ (1 of 1 - PCV) 2004 Zoster (Shingles) Vaccine (1 of 2) 2004 RSV Vaccine 60 years and older and Patients (1 - Risk 60-74 years 1-dose series) 2014 DXA Bone Density (Females,Ages 65 and older) 2019 Influenza Vaccine 02/26/2024 COVID-19 Vaccine (3 - 2023-2 5 season) 2024 01/13/2021, 12/23/2020 Hepatitis B Vaccines Aged Out No long er eligible based on patient's age to complete this topic Care Teams Product Marketing Analyst Relationship Specialty Start Date End Date Anabela Jin MD [address] [place] [address] PCP - General Family Medicine 02/17/21
--- OUTSIDE RECORDS SUMMARY | 2024-09-08 08:02 | XMS_ITS | Encounter Summary ---
Author Organization [facility] Address [address] [place] [address] Phone -x2013 Care Team Providers Care Segmental Paving Supervisor Name Role Phone Anabela Jin MD Primary Care Provid er Reason for Visit * Reason Comments Med Change Request Encounter Details Date Type Department Care Team (Late st Contact Info) Description 01/27/2024 [facility] [address] [place], [place] [id number] Jewell Estrada APRN [address] [place] [address] Med Change Request Social History Tobacco Use Types Packs/Day Years [...] documented as of this encounter Care Teams Segmental Paving Supervisor Relationship Specialty Start Date End Date Anabela Jin MD [address] [place], [place] [phone] PCP - General Internal Medicine 11/24/23 documented as of this encounter
--- OUTSIDE RECORDS SUMMARY | 2024-09-08 08:02 | XMS_ITS | Encounter Summary ---
Author Organization [facility] Address [address] [place] [address] Phone -x2013 Care Team Providers Care Senior Care Assistant Name Role Phone Anabela Jin MD Primary Care Provid er Reason for Visit * Reason Comments Med Change Request Encounter Details Date Type Department Care Team (Late st Contact Info) Description 12/25/2023 [facility] [address] [place] [address] Jewell Estrada APRN [address] [place] [address] Med Change Request Social History [...] documented as of this encounter Visit Diagnoses Diagnosis Type 2 diabetes mellitus with hyperglycemia, without long-term current use of insulin (HC Code) documented in this encounter Additional Health Concerns Assessment Noted Time PHQ-9 Depression Total Score: 0 12/18/19 9:05 AM EDT documented as of this encounter Care Teams Senior Care Assistant Relationship Specialty Start Date End Date Anabela Jin MD [address] [place] [address] [place] [phone] PCP - General Internal Medicine 11/24/23 documented as of this encounter
--- OUTSIDE RECORDS SUMMARY | 2024-09-08 08:02 | XMS_ITS | Encounter Summary ---
Author Organization [facility] Address [address] [place] [address] Phone -x2013 Care Team Providers Care Quality Assurance Consultant Name Role Phone Anabela Jin MD Primary Care Provid er Reason for Visit * Reason Onset Date Comments Medication Problem 12/25/2023 dulaglutide 3 mg/0.5 mL PnIj Encounter Details Date Type Department Care Team (Late st Contact Info) Description 12/25/[address] [address] Anabela Jin MD [address] [place] [address] [place] [phone] Medication Problem (dulaglutide 3 mg/0.5 mL PnIj//) Social History Tobacco Use Types Packs/Day Years [...] encounter Miscellaneous Notes * Telephone Encounter - Era Bourgeois - 12/25/2023 11:13 AM EDT Images from the original note were not included. Reason for call: No inventory at pharmacy Medication Issue/Schedule Appointment F/FU/Authorization Request:Daughter called that pharmacy doesnot have medication in stock. Specify Name of Medication: dulaglutide 3 mg/0.5 mL PnIj Refill status: Preferred Language:Polish Caller was aware message would be routed [...] documented as of this encounter Care Teams Quality Assurance Consultant Relationship Specialty Start Date End Date Anabela Jin MD [address] [place] [address] [place] [phone] PCP - General Internal Medicine 11/24/23 documented as of this encounter
--- OUTSIDE RECORDS SUMMARY | 2024-09-08 08:02 | XMS_ITS | Encounter Summary ---
Author Organization [facility] Address [address] [place] [address] Phone -x2013 Care Team Providers Care Bed Manager Name Role Phone Anabela Jin MD Primary Care Provid er Reason for Visit * Reason Comments Med Change Request Encounter Details Date Type Department Care Team (Late st Contact Info) Description 02/05/[address] [address] Jewell Estrada APRN [address] [place] [address] Med Change Request Social History [...] Noted Time PHQ-9 Depression Total Score: 0 05/23/20 24 9:05 AM EDT documented as of this encounter Care Teams Bed Manager Relationship Specialty Start Date End Date Anabela Jin MD [address] [place] [address] [place] [phone] PCP - General Internal Medicine 11/24/23 documented as of this encounter
--- NOTE | 2024-09-08 08:14 | MHC.OFFWIV ---
Intake Vital Signs 09/08/24 08:15 Weight 146 lb 2 oz BP 120/72 Blood Pressure Location Rt brachial Position Sitting Pulse 81 Pulse Source Pulse Oximeter Temp 98.1 F Temp Source Oral Pulse Oximetry (%) 95 Oxygen Delivery Method Room Air Intake Visit Reasons: EP ? UTI Intake Note: Patient here for burning, lower back pain that has been present for about 3 weeks. Patient Tobacco Use Status: Never used Tobacco Allergies lisinopril Allergy (Severe, Verified 09/08/24 08:22) Swelling metformin Allergy (Intermediate, Verified 09/08/24 08:22) Intolerance, chest pain, high BP, diarrhea pantoprazole Allergy (Intermediate, Verified 09/08/24 08:22) rash quetiapine Allergy (Intermediate, Verified 09/08/24 08:22) chest pain orange juice Allergy (Intermediate, Uncoded 09/08/24 08:22) gerd Do you need a note to return to daycare/school/sports/work: No HPI HPI Comments History of Present Illness Details Daughter presents with pt and giving hx Patch Worker video used Daughter said + urine symptoms x 2 weeks Symptoms; + dysuria and back pain No frequency or incontinence No blood or discoloration No skin rashes or irritation to genital region Per daughter the replenishment specialist saw a mass on uterine and appointment with AUTOMOTIVE ALIGNMENT SPECIALIST is on the and she may need surgery No recent falls or injuries She complaints of discomfort all the time. Daughter said lately she is asking and pt said she is in pain No pain scalr given; can not count No fever, vomiting or diarrhea Normal appetite PFSH Medical History Aortic stenosis Uncontrolled type 2 diabetes mellitus with hyperglycemia, with long-term current use of insulin Shortness of breath Chest pain Fissure in skin of foot Impacted cerumen of left ear Dyspepsia Cyst of skin Left shoulder pain Diabetes mellitus Hospital discharge follow-up Medicare annual wellness visit, subsequent Cellulitis of left leg Dementia Retinitis pigmentosa of both eyes GERD (gastroesophageal reflux disease) Obesity (BMI 30-39.9) Vitamin D deficiency Dyslipidemia Hypertension Diabetic polyneuropathy associated with type 2 diabetes mellitus Diabetic nephropathy associated with type 2 diabetes mellitus Diabetes type 2, uncontrolled Surgical History History of esophagogastroduodenoscopy (EGD) H/O colonoscopy Hx of cholecystectomy Hx of tubal ligation Hx of hernia repair Family History Father No problems noted. Mother Heart disease HTN (hypertension) Sister Pre-diabetes Brother Leukemia Son In good health Daughter In good health Daughter In good health Social History Household Members: Family Housing: Apartment Alcohol intake: never Patient Tobacco Use Status: Never used Tobacco e-Cigarette/Vaping Use: Never Used Second Hand Smoke Exposure: No service: No Current occupational status: disabled Cognitive needs: No Hearing needs: No Vision needs: No Review of Systems Const Denies chills, Denies fever(s) and Denies frequent falls ENT Denies dizziness Card Denies chest pain Resp Denies cough GI Reports abdominal pain, Denies diarrhea, Denies nausea and Denies vomiting Denies hematuria, Denies difficulty voiding, Reports dysuria, Denies urinary incontinence, Denies urinary hesitancy and Denies urinary urgency Musc Reports back pain Skin/Breast Denies rash Neuro Denies dizziness and Denies frequent falls Physical Exam Vital Signs: Last Vital Signs Temp 98.1 F 09/08/24 08:15 Pulse 81 09/08/24 08:15 BP 120/72 09/08/24 08:15 Pulse Ox 95 09/08/24 08:15 Oxygen Delivery Method Room Air 09/08/24 08:15 General: Non-toxic, NAD. Daughter mostly speaking but pt answering questions in nepali with short phrases Skin: Warm dry throughout. No posterior back or anterior abdominal rashes, lesions, ecchymosis or vesicles. Respiratory: CTA bilaterally. No wheezes, rales or rhonchi Cardiac: RRR. No murmur Abdominal: BS present x 4. No abdominal pulsitle mass noted. Slight abdominal distension without rebound or guarding. + ttp pelvic region with deep palpation. No upper abdominal ttp. No CVAT MSK: + ttp diffuse lumbar region. Sit to stand without deficit. No specific ttp over vertebrae Neurology: Alert. No facial droop. Psych: Good mood and affect Results AMB Urinalysis, Automated UA Leukoctes 0 Shad/uL Last Edit by ZULEMA Villanueva on 09/08/24 08:36 UA Nitrite Negative Last Edit by Miguelito Neville [facility] on 09/08/24 08:36 UA Urobilinogen 0.2 mg/dL Last Edit by Miguelito Neville [facility] on 09/08/24 08:36 UA Protein 0 mg/dL Last Edit by Miguelito Neville [facility] on 09/08/24 08:36 UA pH 6.0 Last Edit by Miguelito Neville [facility] on 09/08/24 08:36 UA Blood 25 Ermias/uL Last Edit by Miguelito Neville [facility] on 09/08/24 08:36 UA Specific Coden 1.015 Last Edit by Miguelito Neville [facility] on 09/08/24 08:36 UA Ketone Negative Last Edit by Miguelito Neville [facility] on 09/08/24 08:36 UA Bilirubin 0 mg/dL Last Edit by Miguelito Neville [facility] on 09/08/24 08:36 UA Glucose 500 mg/dL Last Edit by Miguelito Neville [facility] on 09/08/24 08:36 Results Reviewed Results Reviewed: Laboratory Last Values Urine pH (Auto) 6.0 09/08/24 08:35 Specific Coden (Auto) 1.015 09/08/24 08:35 Urine Protein (Auto) 0 mg/dL 09/08/24 08:35 Glucose (UA)(Auto) 500 mg/dL 09/08/24 08:35 Urine Ketones (Auto) Negative 09/08/24 08:35 Urine Blood (Auto) 25 Ermias/uL 09/08/24 08:35 Urine Nitrite (Auto) Negative 09/08/24 08:35 Urine Bilirubin (Auto) 0 mg/dL 09/08/24 08:35 Urine Urobilinogen (Auto) 0.2 mg/dL 09/08/24 08:35 Leukocyte Esterase (Auto) 0 Shad/uL 09/08/24 08:35 Assessment & Plan Assessment & Plan (1) Pelvic pain: Code(s): R10.2 - Pelvic and perineal pain Plan: Patient seen and evaluated. No acute abdomen on examination Urine negative leuks and nitrates Culture will be sent to ensure Discussed tylenola nd heating pad Follow up with specialist ER s/s discussed with pt and daughter Whole visit using the Ambric video interpretter and patient and daughger gave verbal understanding and had no additional questions or concerns at time of discharge All questions answered Orders: Orders AMB Urinalysis Automated Today Z13.9 - Encounter for screening, unspecified Urine Culture Today R10.2 - Pelvic and perineal pain Medications: New acetaminophen 500 mg PO Q6H PRN 20 caps 0RF fever Coding Level of Care Code Est Pt Level 3 (01184) Diagnoses Pelvic pain R10.2
[2024-09-08 08:15] VITALS: BP 120/72; PULSE 81; TEMP 36.7; O2SAT 95
== END 2024-09-08 09:16 | disposition home or self-care (01) ==
PROVIDERS: PCP Internal Medicine; Visit Provider Physician Assistant
DX: R10.2 Pelvic and perineal pain (principal); Z13.9 Encounter for screening, unspecified

== ENCOUNTER 2024-09-08 07:59 | Outpatient (REF) | payer MEDICARE, MEDICAID, SELFPAY ==
--- OUTSIDE RECORDS SUMMARY | 2024-09-08 12:26 | XMS_ITS | Encounter Summary ---
Author Organization [facility] Address [address] [place] [address] Phone -x2013 Care Team Providers Care Technician'S Helper Name Role Phone Anabela Jin MD Primary Care Provid er Reason for Visit * Reason Comments Med Change Request Encounter Details Date Type Department Care Team (Late st Contact Info) Description 12/25/2023 [facility] [address] [place] [address] Jewell Estrada APRN [address] [place] [address] Med Change Request Social History [...] documented as of this encounter Care Teams Technician'S Helper Relationship Specialty Start Date End Date Anabela Jin MD [address] [place] [address] [place] [phone] PCP - General Internal Medicine 11/24/23 documented as of this encounter
--- OUTSIDE RECORDS SUMMARY | 2024-09-08 12:26 | XMS_ITS | Clinical Summary ---
Author Organization [facility] Address [address] [place] [address] Care Team Providers Care Wellness Manager Name Role Phone Anabela Jin MD Primary Care Provider [phone] Allergies Active Allergy Reactions Criticality Noted Date [...] age to complete this topic Care Teams Wellness Manager Relationship Specialty Start Date End Date Anabela Jin MD [address] [place] [address] PCP - General Family Medicine 02/17/21
--- OUTSIDE RECORDS SUMMARY | 2024-09-08 12:26 | XMS_ITS | Encounter Summary ---
Author Organization [facility] Address [address] [place] [address] Phone -x2013 Care Team Providers Care Invoice Control Clerk Name Role Phone Anabela Jin MD Primary Care Provid er Reason for Visit * Reason Onset Date Comments Medication Problem 12/29/2023 semaglutide ( OZEMPIC) 0.25 mg or 0.5 mg (2 mg/3 mL) pen injector Advice Only 12/29/2023 Encounter Details Date Type Department Care Team ([facility] st Contact Info) Description 12/29/2023 [place] [address] Anabela Jin MD [address] [place] [address] [place] [address] Medication Problem (semaglutide [...] James RN - 12/29/2023 4:15 PM EDT #[id number] wallisian interpretor Called back pt and relayed medication [...] she didn't understand the previous call with equipment operator/laborer states line was cutting out and requesting a callback to get clarification on Rx if pt has to take .25 or 0.5mg and for how long please callback to advise Specify Name of Medication: semaglutide (OZEMPIC) 0.25 mg or 0.5 mg (2 mg/3 mL) pen injector Refill status:0 Preferred Language:wallisian Caller was aware message would be routed to PCP team for review and F/U. Caller made aware of form policy. Caller verbalized understating and had no further question at this time. * Telephone Encounter - Priscilla Wilson - 12/29/2023 9:14 AM EDT Reason for call:states she didn't understand the previous call with equipment operator/laborer states line was cutting out and requesting a callback to get clarification on Rx if pt has to take .25 and for how longplease callback to advise Medication Issue/Schedule Appointment F/FU/Authorization Request: Specify Name of Medication:semaglutide (OZEMPIC) 0.25 mg or 0.5 mg (2 mg/3 mL) pen injector Refill status:0 Preferred Language:wallisian Caller was aware message would be routed [...] documented as of this encounter Care Teams Invoice Control Clerk Relationship Specialty Start Date End Date Anabela Jin MD [address] [place] [address] [place] [address] PCP - General Internal Medicine 11/24/23 documented as of this encounter
--- OUTSIDE RECORDS SUMMARY | 2024-09-08 12:26 | XMS_ITS | Clinical Summary ---
Author Organization [facility] Facility Address [address] [place] [address], [place] [address] Care Team Providers Care Senior Informatica Etl Developer Name Role Phone Anabela Jin MD Primary Care Provider [phone] Allergies Active Allergy Reactions Criticality Noted Date [...] [place]ID [place] Care Teams Senior Informatica Etl Developer Relationship Specialty Start Date End Date Anabela Jin MD [address] [place], [place] PCP - General Internal Medicine 09/03/21
--- OUTSIDE RECORDS SUMMARY | 2024-09-08 12:26 | XMS_ITS | Clinical Summary ---
Author Organization [facility] [address] [facility] Address [address] [place] [address] Phone Care Team Providers Care Appeals Coordinator Name Role Phone Anabela Jin MD Primary [...] urine, random (01/15/2024 9:09 AM EDT) Pathologist [facility] Creatinine, Random Urine 166 20 - 275 [...] Comment Performing Lab: ?Site ID: [id number] ?Name: [facility] ?Address: [address] [place] [phone] ?Director: Robbin Monroy M.D. us Jewell Estrada APRN URINE ORDERABLES Final Result [facility] [address] * (ABNORMAL) Lipid panel with reflex to direct LDL (Q) (12/18/2023 11:43 AM EDT) [facility] Cholesterol, Total 284(H) <200 mg/dL [facility] [...] LDL-C. Wade VARGAS et al. MAXIMILIANO. 2013;310(19): 0866-1601 ([email or web address]) Chol/HDL Ratio 5.7(H) <5.0 (calc) [facility] [...] Comment Performing Lab: ?Site ID: [id number] ?Name: [facility] ?Address: [address] [place] [phone] ?Director: Robbin Monroy M.D. Jewell Estrada APRN LAB BLOOD ORDERABLES Final Re sult [facility] [address] [place] [address] * POCT glycosylated hemoglobin (HgbA1c), total (60767) (12/18/2023 9:13 AM EDT) Hemoglobin A1C, POC 11.3 4.0 - 6.0 % [facility] Test Lot Number [id number] [facility] Test Lot Exp Date 09/08/25 Date Format: MM/DD/YYYY [facility] 12/18/2023 9:13 AM EDT Jewell Estrada APRN POINT OF CARE TEST ORDERABLES Final Result Performing Organization Address [facility] Co de Phone Number [facility] from Last 3 Months or Most Recently Relevant to Health Maintenance Insurance MEDICARE [id number] MEDICAID MEDICARE [id number] MEDICAID MEDICAID [place] [facility] MEDICARE [id number] MEDICAID Care Teams Appeals Coordinator Relationship Specialty Start Date End Date Anabela Jin MD [address] [place] [address] [place] [address] PCP - General Internal Medicine 11/24/23
--- OUTSIDE RECORDS SUMMARY | 2024-09-08 12:26 | XMS_ITS | Encounter Summary ---
Author Organization [facility] Address [address] [place] [address] Phone -x2013 Care Team Providers Care Community Service Patrol Officer Name Role Phone Anabela Jin MD Primary Care Provid er Reason for Visit * Reason Onset Date Comments Medication Problem 12/25/2023 dulaglutide 3 mg/0.5 mL PnIj Encounter Details Date Type Department Care Team (Late st Contact Info) Description 12/25/[address] [address] Anabela Jin MD [address] [place] [address] [place] [address] Medication Problem (dulaglutide [...] 3 mg/0.5 mL PnIj Refill status: Preferred Language:Amharic Caller was aware message would be routed [...] documented as of this encounter Care Teams Community Service Patrol Officer Relationship Specialty Start Date End Date Anabela Jin MD [address] [place] [address] [place] [address] PCP - General Internal Medicine 11/24/23 documented as of this encounter
--- OUTSIDE RECORDS SUMMARY | 2024-09-08 12:26 | XMS_ITS | Encounter Summary ---
Author Organization [facility] Address [address] [place] [address] Phone -x2013 Care Team Providers Care Sample Display Preparer Name Role Phone Anabela Jin MD Primary Care Provid er Reason for Visit * Reason Comments Med Change Request Encounter Details Date Type Department Care Team (Late st Contact Info) Description 02/05/[address] [address] Jewell Estrada APRN [address] [place] [address] Med Change Request Social History [...] documented as of this encounter Care Teams Sample Display Preparer Relationship Specialty Start Date End Date Anabela Jin MD [address] [place] [address] [place] [address] PCP - General Internal Medicine 11/24/23 documented as of this encounter
--- OUTSIDE RECORDS SUMMARY | 2024-09-08 12:26 | XMS_ITS | Encounter Summary ---
Author Organization [facility] Address [address] [place] [address] Phone -x2013 Care Team Providers Care Trash Collector Name Role Phone Anabela Jin MD Primary Care Provid er Reason for Visit * Reason Comments Med Change Request Encounter Details Date Type Department Care Team (Late st Contact Info) Description 01/27/2024 [facility] [address] [place], [place] [phone] Jewell Estrada APRN [address] [place] [address] Med Change Request Social History [...] documented as of this encounter Care Teams Trash Collector Relationship Specialty Start Date End Date Anabela Jin MD [address] [facility] [address] [place], [place] [address] PCP - General Internal Medicine 11/24/23 documented as of this encounter
--- OUTSIDE RECORDS SUMMARY | 2024-09-08 12:26 | XMS_ITS | Encounter Summary ---
Author Organization [facility] Address [address] [place] [address] Phone -x2013 Care Team Providers Care Exploitation Analyst Name Role Phone Anabela Jin MD Primary Care Provid er Reason for Visit * Reason Comments Medication Refill Encounter Details Date Type Department Care Team (Late st Contact Info) Description 02/25/2024 Refill [facility] [address] [place], [place] [phone] Jewell Estrada APRN [address] [place] [address] Medication Refill Social History Tobacco [...] documented as of this encounter Care Teams Exploitation Analyst Relationship Specialty Start Date End Date Anabela Jin MD [address] [facility] [address] [place], [place] [phone] PCP - General Internal Medicine 11/24/23 documented as of this encounter
--- OUTSIDE RECORDS SUMMARY | 2024-09-08 12:26 | XMS_ITS | Clinical Summary ---
Author Organization [facility] Address [address] [facility] 7[address] [place] [address] Care Team Providers Care Spinning Doffer Name Role Phone Unavailable Primary Care Provider [...] patient's age to complete this topic Insurance [facility] [address] STANDARD MEDICARE
== END 2024-09-08 08:00 | disposition home or self-care (01) ==
LOC: HO.LNP 07:59
PROVIDERS: Visit Provider Internal Medicine
DX: R10.2 Pelvic and perineal pain (principal)
CPT/HCPCS: 81003; 87086; 87088; 87186; 99212

== ENCOUNTER 2024-10-05 12:59 | Outpatient (AMB) | payer MEDICARE, MEDICAID, SELFPAY ==
--- NOTE | 2024-10-05 13:00 | MHC.OFFVIS ---
Vital Signs 10/05/24 13:04 Height 5 ft Weight 143 lb 8.335 oz BMI 28.0 BP 114/60 Blood Pressure Location Lt brachial Position Sitting Pulse 82 Pulse Source Pulse Oximeter Pulse Oximetry (%) 96 Oxygen Delivery Method Room Air Intake Visit Reasons: T2DM Intake Note: Patient present today to follow up on Type 2 Diabetes Mellitus. Last Diabetic Eye exam: Legally blind Last Podiatry Visit: Does not have a House Fellow Random Glucose: 125 mg/dl HgA1C: 7.0% 10/05/2024 Overhead Crane Inspector Required: Yes Overhead Crane Inspector Language: Tile Molder Services: Overhead Crane Inspector Present Overhead Crane Inspector Name: Jessica [id number] Information Interpreted: non-clinical & clinical Accompanied by: Daughter Allergies lisinopril Allergy (Severe, Verified 10/05/24 13:04) Swelling metformin Allergy (Intermediate, Verified 10/05/24 13:04) Intolerance, chest pain, high BP, diarrhea pantoprazole Allergy (Intermediate, Verified 10/05/24 13:04) rash quetiapine Allergy (Intermediate, Verified 10/05/24 13:04) chest pain orange juice Allergy (Intermediate, Uncoded 10/05/24 13:04) gerd HPI Comments Details: This is a 69-year-old female with a past medical history of dementia, legal blindness, type 2 diabetes, dyslipidemia, hypertension, obesity, GERD and chronic constipation presenting for diabetic management. She is with her daughter, Nicolette. Reviewed Stephon 3 download times 14 days CGM active 93% Average glucose 127 G KS 6.3% Glucose variability 28.4% Very high 0% High 11% Target range 88% Low 1% Very low 0% Hypoglycemia occurs overnight. Her daughter tells me that when they get an alert she checks a fingerstick glucose, and this is always normal. She has no symptoms of hypoglycemia when she gets these alerts. Hemoglobin a1c 7.0% today 10/05/2024. Microvascular complications: neuropathy, nephropathy (microalbumin) Macrovascular complications: none Hypertension: treated with amlodipine 10 mg, chlorthalidone 25 mg. Intolerant to DEBBY inhibitor which caused swelling. Hyperlipidemia: treated with atorvastatin 40 mg and Zetia 10 mg daily. LDL at goal <100. Current medication regimen: Lantus 10 units nightly, glipizide ER 10 mg daily, Jardiance 25 mg, Trulicity 1.5 mg weekly. Past medication: Intolerant to metformin which caused diarrhea, chest pain and elevated blood pressure. She saw the special education paraeducator and emulsion coater. Hypoglycemia symptoms: none. Denies episodes. Hyperglycemia symptoms: none. Denies episodes. Patient's daughter reports that she was seen at the walk-in in August for pelvic pain. She was diagnosed with a UTI and treated with ciprofloxacin. Following antibiotics it sounds like she went to the elastic attacher zigzag and was then diagnosed with a ?fungal infection? and she has medication for this that she is going to start. Currently feels well today without dysuria, urinary frequency, pelvic pain, vaginal bleeding or discharge. Daughter also says that they found a small endometrial polyp which is being monitored. ROS: Constitutional: No unexplained weight loss, fever, chills. Respiratory: No shortness of breath Cardiovascular: No chest pain Gastrointestinal: No nausea, vomiting or abdominal pain. Genitourinary: No dysuria, hematuria, urinary frequency. Neurologic: No headache, dizziness, syncope Skin: No rash or itching. Endocrine: No polyuria or polydipsia. Physical exam: Constitutional: Alert, in no distress. Respiratory: Clear to auscultation. Cardiovascular: S1 S2 regular. III/ systolic murmur. Right foot: Warm and well perfused. No clubbing, cyanosis or edema. Palpable DP pulse. Intact sensation to monofilament. No open wounds. Left foot: Warm and well perfused. No clubbing, cyanosis or edema. Palpable DP pulse. No open wounds. Mildly decreased sensation to monofilament. [facility] Medical History Aortic stenosis Uncontrolled type 2 diabetes mellitus with hyperglycemia, with long-term current use of insulin Shortness of breath Chest pain Fissure in skin of foot Impacted cerumen of left ear Dyspepsia Cyst of skin Left shoulder pain Diabetes mellitus Hospital discharge follow-up Medicare annual wellness visit, subsequent Cellulitis of left leg Dementia Retinitis pigmentosa of both eyes GERD (gastroesophageal reflux disease) Obesity (BMI 30-39.9) Vitamin D deficiency Dyslipidemia Hypertension Diabetic polyneuropathy associated with type 2 diabetes mellitus Diabetic nephropathy associated with type 2 diabetes mellitus Diabetes type 2, uncontrolled Surgical History History of esophagogastroduodenoscopy (EGD) H/O colonoscopy Hx of cholecystectomy Hx of tubal ligation Hx of hernia repair Family History Father No problems noted. Mother Heart disease HTN (hypertension) Sister Pre-diabetes Brother Leukemia Son In good health Daughter In good health Daughter In good health Social History Household Members: Family Housing: Apartment Alcohol intake: never Patient Tobacco Use Status: Never used Tobacco e-Cigarette/Vaping Use: Never Used Second Hand Smoke Exposure: No service: No Current occupational status: disabled Cognitive needs: No Hearing needs: No Vision needs: No Physical Exam Vital Signs: Last Vital Signs Pulse 82 10/05/24 13:04 BP 114/60 10/05/24 13:04 Pulse Ox 96 10/05/24 13:04 Oxygen Delivery Method Room Air 10/05/24 13:04 BMI result Body Mass Index 28.0 Office Procedures Glucose Monitoring Details Details: See HPI 10448 - Glucose monitoring, continuous-physician I&R Procedure code (CPT) selection complete Results AMB Hemoglobin A1c AMB Hemoglobin A1c 7.0 % Last Edit by ALDO Carlos on 10/05/24 13:20 Results Reviewed Results Reviewed: Laboratory Last Values Glucose (Clinic) 125 mg/dL (60-115) H 10/05/24 13:10 Hgb A1c (Clinic) 7.0 % (4.0-6.0) H 10/05/24 13:15 Laboratory Tests 07/02/24 07/02/24 09:24 09:25 Creatinine 0.81 Estimated GFR > 60 AST 21 ALT 22 Triglycerides 177 H Cholesterol 149 LDL Cholesterol, Calc 72 HDL Cholesterol 42 Urine Creatinine 63.32 Urine Microalbumin 58.0 Microalb/Creat Ratio 91.5 H Assessment & Plan Assessment & Plan (1) Uncontrolled type 2 diabetes mellitus with hyperglycemia, with long-term current use of insulin: Code(s): E11.65 - Type 2 diabetes mellitus with hyperglycemia; Z79.4 - tank terminal gauger (current) use of insulin Category: Medical (2) Diabetic nephropathy associated with type 2 diabetes mellitus: Code(s): E11.21 - Type 2 diabetes mellitus with diabetic nephropathy Category: Medical Plan In summary this is a 69-year-old female controlled type 2 diabetes on her current regimen of Lantus, Trulicity, Jardiance and glipizide. Reviewed diabetic diet. Reviewed comorbidities associated with type 2 diabetes. Bring glucometer to all appointments. Reviewed treatment of hypo and hyperglycemia. Patient had recent urinary tract infection treated with antibiotics. Monitor for recurrence. If she has recurrent UTIs or yeast infections we would consider discontinuing Jardiance and increasing dose of Trulicity. Follow up in 3 months for Type II DM. Orders: Orders AMB Hemoglobin A1c Today E11.65 - Type 2 diabetes mellitus with hyperglycemia, Z79.4 - intermediate (current) use of insulin AMB Glucose Monitoring Today E11.9 - Type 2 diabetes mellitus without complications Medications: Refilled dulaglutide (Trulicity) 1.5 mg (0.5 mL) subcut QWEEK 90 days 6 mL 3RF E11.65 - Type 2 diabetes mellitus with hyperglycemia Discontinued ciprofloxacin HCl Discontinued Reason: Duplicate 250 mg PO Q12H 6 tabs 0RF Coding Level of Care Code Est Pt Level 4 (17700) Diagnoses Uncontrolled type 2 diabetes mellitus with hyperglycemia, with long-term current use of insulin E11.65; Z79.4 Diabetic nephropathy associated with type 2 diabetes mellitus E11.21 CPT Codes Details - CPT: 87511 - Glucose monitoring, continuous-physician I&R ([id number])
[2024-10-05 13:04] VITALS: BP 114/60; PULSE 82; O2SAT 96; BMI 28.0
[2024-10-05 13:15] LABS: Glucose, Whole Blood 125 mg/dL (60-115)
--- OUTSIDE RECORDS SUMMARY | 2024-10-05 15:38 | XMS_ITS | Encounter Summary ---
Author Organization [facility] Address [address] [place] [address] Phone -x2013 Care Team Providers Care Claims Configuration Analyst Name Role Phone Anabela Jin MD Primary Care Provid er Reason for Visit * Reason Comments Medication Refill Encounter Details Date Type Department Care Team (Late st Contact Info) Description 02/25/2024 Refill [facility] [address] [place], [place] [phone] Jewell Estrada APRN [address] [place] [address] Medication Refill Social History Tobacco [...] documented as of this encounter Care Teams Claims Configuration Analyst Relationship Specialty Start Date End Date Anabela Jin MD [address] [facility] [address] [place], [place] [phone] PCP - General Internal Medicine 11/24/23 documented as of this encounter
--- OUTSIDE RECORDS SUMMARY | 2024-10-05 15:38 | XMS_ITS | Clinical Summary ---
Author Organization [facility] Address [address] [place] [address] Care Team Providers Care Dryerman/Woman Name Role Phone Anabela Jin MD Primary Care Provider [phone] Allergies Active Allergy Reactions Criticality Noted Date [...] age to complete this topic Care Teams Dryerman/Woman Relationship Specialty Start Date End Date Anabela Jin MD [address] [place] [address] PCP - General Family Medicine 02/17/21
--- OUTSIDE RECORDS SUMMARY | 2024-10-05 15:38 | XMS_ITS | Encounter Summary ---
Author Organization [facility] Address [address] [place] [address] Phone -x2013 Care Team Providers Care Mosaicist Name Role Phone Anabela Jin MD Primary Care Provid er Reason for Visit * Reason Comments Med Change Request Encounter Details Date Type Department Care Team (Late st Contact Info) Description 02/05/[address] [address] Jewell Estrada APRN [address] [place] [address] Med Change Request Social History [...] documented as of this encounter Care Teams Mosaicist Relationship Specialty Start Date End Date Anabela Jin MD [address] [place] [address] [place] [address] PCP - General Internal Medicine 11/24/23 documented as of this encounter
--- OUTSIDE RECORDS SUMMARY | 2024-10-05 15:38 | XMS_ITS | Encounter Summary ---
Author Organization [facility] Address [address] [place] [address] Phone -x2013 Care Team Providers Care Technology Methodology Consultant Name Role Phone Anabela Jin MD Primary Care Provid er Reason for Visit * Reason Onset Date Comments Medication Problem 12/29/2023 semaglutide ( OZEMPIC) 0.25 mg or 0.5 mg (2 mg/3 mL) pen injector Advice Only 12/29/2023 Encounter Details Date Type Department Care Team ([facility] st Contact Info) Description 12/29/2023 [place] [address] Anabela Jin MD [address] [place] [address] [place] [phone] Medication Problem (semaglutide [...] James RN - 12/29/2023 4:15 PM EDT #[id number] yemeni interpretor Called back pt and relayed medication [...] she didn't understand the previous call with billet bed operator states line was cutting out and requesting a callback to get clarification on Rx if pt has to take .25 or 0.5mg and for how long please callback to advise Specify Name of Medication: semaglutide (OZEMPIC) 0.25 mg or 0.5 mg (2 mg/3 mL) pen injector Refill status:0 Preferred Language:yemeni Caller was aware message would be routed to PCP team for review and F/U. Caller made aware of form policy. Caller verbalized understating and had no further question at this time. * Telephone Encounter - Priscilla Wilson - 12/29/2023 9:14 AM EDT Reason for call:states she didn't understand the previous call with billet bed operator states line was cutting out and requesting a callback to get clarification on Rx if pt has to take .25 and for how longplease callback to advise Medication Issue/Schedule Appointment F/FU/Authorization Request: Specify Name of Medication:semaglutide (OZEMPIC) 0.25 mg or 0.5 mg (2 mg/3 mL) pen injector Refill status:0 Preferred Language:yemeni Caller was aware message would be routed [...] documented as of this encounter Care Teams Technology Methodology Consultant Relationship Specialty Start Date End Date Anabela Jin MD [address] [place] [address] [place] [address] PCP - General Internal Medicine 11/24/23 documented as of this encounter
--- OUTSIDE RECORDS SUMMARY | 2024-10-05 15:38 | XMS_ITS | Encounter Summary ---
Author Organization [facility] Address [address] [place] [address] Phone -x2013 Care Team Providers Care Appliquer Zigzag Name Role Phone Anabela Jin MD Primary Care Provid er Reason for Visit * Reason Comments Med Change Request Encounter Details Date Type Department Care Team (Late st Contact Info) Description 01/27/2024 [facility] [address] [place], [place] [phone] Jewell Estrada APRN [address] [place] [address] Med Change Request Social History [...] documented as of this encounter Care Teams Appliquer Zigzag Relationship Specialty Start Date End Date Anabela Jin MD [address] [facility] [address] [place], [place] [phone] PCP - General Internal Medicine 11/24/23 documented as of this encounter
--- OUTSIDE RECORDS SUMMARY | 2024-10-05 15:38 | XMS_ITS | Encounter Summary ---
Author Organization [facility] Address [address] [place] [address] Phone -x2013 Care Team Providers Care Silk Spotter Name Role Phone Anabela Jin MD Primary Care Provid er Reason for Visit * Reason Onset Date Comments Medication Problem 12/25/2023 dulaglutide 3 mg/0.5 mL PnIj Encounter Details Date Type Department Care Team (Late st Contact Info) Description 12/25/[address] [address] Anabela Jin MD [address] [place] [address] [place] [address] Medication Problem (dulaglutide [...] 3 mg/0.5 mL PnIj Refill status: Preferred Language:Burmese Caller was aware message would be routed [...] documented as of this encounter Care Teams Silk Spotter Relationship Specialty Start Date End Date Anabela Jin MD [address] [place] [address] [place] [address] PCP - General Internal Medicine 11/24/23 documented as of this encounter
--- OUTSIDE RECORDS SUMMARY | 2024-10-05 15:38 | XMS_ITS | Clinical Summary ---
Author Organization [facility] Facility Address [address] [place] [address], [place] [address] Care Team Providers Care Knock Up Assembler Name Role Phone Anabela Jin MD Primary Care Provider Allergies Active Allergy Reactions Criticality Noted Date [...] [place]ID [place] Care Teams Knock Up Assembler Relationship Specialty Start Date End Date Anabela Jin MD [address] [place], [place] PCP - General Internal Medicine 09/03/21
--- OUTSIDE RECORDS SUMMARY | 2024-10-05 15:38 | XMS_ITS | Encounter Summary ---
Author Organization [facility] Address [address] [place] [address] Phone -x2013 Care Team Providers Care Practice Representative Name Role Phone Anabela Jin MD Primary Care Provid er Reason for Visit * Reason Comments Med Change Request Encounter Details Date Type Department Care Team (Late st Contact Info) Description 12/25/2023 [facility] [address] [place] [address] Jewell Estrada APRN [address] [place] [address] Med Change Request Social History [...] documented as of this encounter Care Teams Practice Representative Relationship Specialty Start Date End Date Anabela Jin MD [address] [place] [address] [place] [phone] PCP - General Internal Medicine 11/24/23 documented as of this encounter
--- OUTSIDE RECORDS SUMMARY | 2024-10-05 15:38 | XMS_ITS | Clinical Summary ---
Author Organization [facility] Address [address] [facility] 7[address] [place] [address] Care Team Providers Care Hygiene Teacher Name Role Phone Unavailable Primary Care Provider [...] this topic Meningococcal Vaccine Aged Out No arj talha eligible based on patient's age to complete this topic RSV under 20 months Aged Out No longe r eligible based on patient's age to complete this topic Rotavirus Vaccines Aged Out No longer eligible based on patient's age to complete this topic Insurance [facility] STANDARD MEDICARE
--- OUTSIDE RECORDS SUMMARY | 2024-10-05 15:38 | XMS_ITS | Clinical Summary ---
Author Organization [facility] Address [address] [place] [address] Phone Care Team Providers Care Miner Placer Name Role Phone Anabela Jin MD Primary [...] A1C 03/19/2024 12/18/2023, 11/24/2023 Covid-19 vaccine series (2023- season) 2024 07/02/2022, 11/28/2021, 01/13/2021, Additional history exists LDL monitoring 12/17/2024 12/18/2023 Urine Microalbumin 01/14/2025 01/15/2024, 12/18/2023 Pneumococcal Vaccine (50+ years) Completed 12/07/2021, 11/15/2020, 11/23/2015 Shingles vaccine (Shingrix) Completed 02/01/2022, [...] panel, urine, random (01/15/2024 9:09 AM EDT) Creatinine, Random Urine 166 20 - 275 [...] Comment Performing Lab: ?Site ID: [id number] ?Name: [facility] ?Address: [address] [place] [phone] ?Director: Robbin Monroy M.D. Jewell Estrada APRN URINE ORDERABLES Final Result [facility] [address] * (ABNORMAL) Lipid panel with reflex to direct LDL (Q) (12/18/2023 11:43 AM EDT) [facility] Cholesterol, Total 284(H) <200 mg/dL [facility] [...] LDL-C. Wade VARGAS et al. MAXIMILIANO. 2013;310(19): 8934-1305 (http://education.Reglare.iPerceptions/faq/UQH816) Chol/HDL Ratio 5.7(H) <5.0 (calc) [facility] [...] Comment Performing Lab: ?Site ID: [id number] ?Name: [facility] ?Address: [address] [place] [phone] ?Director: Robbin Monroy M.D. Jewell Estrada APRN LAB BLOOD ORDERABLES Final Re sult [facility] [address] [place] [address] * POCT glycosylated hemoglobin (HgbA1c), total (36295) (12/18/2023 9:13 AM EDT) Hemoglobin A1C, POC 11.3 4.0 - 6.0 % [facility] Test Lot Number [id number] [facility] Test Lot Exp Date 09/08/25 Date Format: MM/DD/YYYY [facility] 12/18/2023 9:13 AM EDT Jewell Estrada APRN POINT OF CARE TEST ORDERABLES Final Result Performing Organization Address [facility] Co de Phone Number [facility] from Last 3 Months or Most Recently Relevant to Health Maintenance Insurance MEDICARE [id number] MEDICAID MEDICARE [id number] MEDICAID MEDICAID [place] [employer] [facility] MEDICARE [id number] MEDICAID Care Teams Miner Placer Relationship Specialty Start Date End Date Anabela Jin MD [address] [place] [address] [place] [address] PCP - General Internal Medicine 11/24/23
== END 2024-10-05 13:49 | disposition home or self-care (01) ==
LOC: HO.ENCR 12:59
PROVIDERS: PCP Internal Medicine; Visit Provider Physician Assistant Medical
DX: E11.65 Type 2 diabetes mellitus with hyperglycemia (principal); Z79.4 Long term (current) use of insulin; E11.21 Type 2 diabetes mellitus with diabetic nephropathy

== ENCOUNTER → 2024-10-05 12:59 | Outpatient (BNVA) | payer MEDICARE, MEDICAID, SELFPAY | PROVIDERS: PCP Internal Medicine; Visit Provider Physician Assistant Medical | DX: E11.65 Type 2 diabetes mellitus with hyperglycemia (principal); E11.21 Type 2 diabetes mellitus with diabetic nephropathy; Z79.4 Long term (current) use of insulin; Z79.85 Long-term (current) use of injectable non-insulin antidiabetic drugs; Z79.84 Long term (current) use of oral hypoglycemic drugs | CPT/HCPCS: 82947; 83036; 99212 ==

== ENCOUNTER 2024-11-02 13:07 | Outpatient (REF) | payer MEDICARE, MEDICAID, SELFPAY ==
[2024-11-02 15:38] LABS: Appearance Urine Clear; Color Urine Yellow; Glucose Urine UA Negative (Negative); Leukocyte Esterase Urine Negative (Negative); Nitrite Urine Negative (Negative); PH 5.5 (5.0-9.0); UMIC TRIGGER UA YES; Urine Blood Trace (Negative); Urine Ketones Negative (Negative); Urine Protein Trace mg/dL (Neg-Trace)
[2024-11-02 15:40] LABS: Bacteria Urine None Seen (None Seen); Hyaline Casts Urine 0-2 /LPF (0-2); RBC Urine 0-2 /HPF (0-2); WBC Urine 0-5 /HPF (0-5)
--- OUTSIDE RECORDS SUMMARY | 2024-11-02 17:27 | XMS_ITS | Encounter Summary ---
Author Organization [facility] Address [address] [place] [address] Phone -x2013 Care Team Providers Care Air Battle Manager Name Role Phone Anabela Jin MD Primary Care Provid er Reason for Visit * Reason Comments Med Change Request Encounter Details Date Type Department Care Team (Late st Contact Info) Description 01/27/2024 [facility] [address] [place], [place] [id number] Jewell Estrada APRN [address] [place] [address] Med Change Request Social History [...] documented as of this encounter Care Teams Air Battle Manager Relationship Specialty Start Date End Date Anabela Jin MD [address] [place], [place] [phone] PCP - General Internal Medicine 11/24/23 documented as of this encounter
--- OUTSIDE RECORDS SUMMARY | 2024-11-02 17:27 | XMS_ITS | Encounter Summary ---
Author Organization [facility] Address [address] [place] [address] Phone -x2013 Care Team Providers Care Surveyor'S Assistant Name Role Phone Anabela Jin MD Primary Care Provid er Reason for Visit * Reason Onset Date Comments Medication Problem 12/29/2023 semaglutide ( OZEMPIC) 0.25 mg or 0.5 mg (2 mg/3 mL) pen injector Advice Only 12/29/2023 Encounter Details Date Type Department Care Team ([facility] st Contact Info) Description 12/29/[address] [address] Anabela Jin MD [address] [place] [address] [place] [phone] Medication Problem (semaglutide [...] James RN - 12/29/2023 4:15 PM EDT #[id number] venezuelan interpretor Called back pt and relayed medication [...] she didn't understand the previous call with plastics supervisor states line was cutting out and requesting a callback to get clarification on Rx if pt has to take .25 or 0.5mg and for how long please callback to advise Specify Name of Medication: semaglutide (OZEMPIC) 0.25 mg or 0.5 mg (2 mg/3 mL) pen injector Refill status:0 Preferred Language:venezuelan Caller was aware message would be routed to PCP team for review and F/U. Caller made aware of form policy. Caller verbalized understating and had no further question at this time. * Telephone Encounter - Priscilla Wilson - 12/29/2023 9:14 AM EDT Reason for call:states she didn't understand the previous call with plastics supervisor states line was cutting out and requesting a callback to get clarification on Rx if pt has to take .25 and for how longplease callback to advise Medication Issue/Schedule Appointment F/FU/Authorization Request: Specify Name of Medication:semaglutide (OZEMPIC) 0.25 mg or 0.5 mg (2 mg/3 mL) pen injector Refill status:0 Preferred Language:venezuelan Caller was aware message would be routed [...] documented as of this encounter Care Teams Surveyor'S Assistant Relationship Specialty Start Date End Date Anabela Jin MD [address] [place] [address] [place] [phone] PCP - General Internal Medicine 11/24/23 documented as of this encounter
--- OUTSIDE RECORDS SUMMARY | 2024-11-02 17:27 | XMS_ITS | Encounter Summary ---
Author Organization [facility] Address [address] [place] [address] Phone -x2013 Care Team Providers Care Manager Investment Name Role Phone Anabela Jin MD Primary Care Provid er Reason for Visit * Reason Comments Med Change Request Encounter Details Date Type Department Care Team (Late st Contact Info) Description 02/05/[address] [address] Jewell Estrada APRN [address] [place] [address] Med Change Request Social History [...] documented as of this encounter Care Teams Manager Investment Relationship Specialty Start Date End Date Anabela Jin MD [address] [place] [address] [place] [phone] PCP - General Internal Medicine 11/24/23 documented as of this encounter
--- OUTSIDE RECORDS SUMMARY | 2024-11-02 17:27 | XMS_ITS | Encounter Summary ---
Author Organization [facility] Address [address] [place] [address] Phone -x2013 Care Team Providers Care Sound Engineer Name Role Phone Anabela Jin MD Primary Care Provid er Reason for Visit * Reason Comments Med Change Request Encounter Details Date Type Department Care Team (Late st Contact Info) Description 12/25/2023 [facility] [address] [place] [address] Jewell Estrada APRN [address] [place] [address] Med Change Request Social History [...] documented as of this encounter Care Teams Sound Engineer Relationship Specialty Start Date End Date Anabela Jin MD [address] [place] [address] [place] [phone] PCP - General Internal Medicine 11/24/23 documented as of this encounter
--- OUTSIDE RECORDS SUMMARY | 2024-11-02 17:27 | XMS_ITS | Encounter Summary ---
Author Organization [facility] Address [address] [place] [address] Phone -x2013 Care Team Providers Care Bobcat Operator Name Role Phone Anabela Jin MD Primary Care Provid er Reason for Visit * Reason Onset Date Comments Medication Problem 12/25/2023 dulaglutide 3 mg/0.5 mL PnIj Encounter Details Date Type Department Care Team (Late st Contact Info) Description 12/25/[address] [address] Anabela Jin MD [address] [place] [address] [place] [phone] Medication Problem (dulaglutide [...] 3 mg/0.5 mL PnIj Refill status: Preferred Language:Costa Rican Caller was aware message would be routed [...] documented as of this encounter Care Teams Bobcat Operator Relationship Specialty Start Date End Date Anabela Jin MD [address] [place] [address] [place] [phone] PCP - General Internal Medicine 11/24/23 documented as of this encounter
--- OUTSIDE RECORDS SUMMARY | 2024-11-02 17:27 | XMS_ITS | Clinical Summary ---
Author Organization [facility] Address [address] [facility] 7t [place] [address] Care Team Providers Care Shear Operator Automatic Name Role Phone Unavailable Primary Care Provider [...] patient's age to complete this topic Insurance [facility] STANDARD MEDICARE
--- OUTSIDE RECORDS SUMMARY | 2024-11-02 17:27 | XMS_ITS | Encounter Summary ---
Author Organization [facility] Address [address] [place] [address] Phone -x2013 Care Team Providers Care Chief Risk Officer Name Role Phone Anabela Jin MD Primary Care Provid er Reason for Visit * Reason Comments Medication Refill Encounter Details Date Type Department Care Team (Late st Contact Info) Description 02/25/2024 Refill [facility] [address] [place], [place] [phone] Jewell Estrada APRN [address] [place] [address] Medication Refill Social History Tobacco [...] documented as of this encounter Care Teams Chief Risk Officer Relationship Specialty Start Date End Date Anabela Jin MD [address] [facility] [address] [place], [place] [phone] PCP - General Internal Medicine 11/24/23 documented as of this encounter
--- OUTSIDE RECORDS SUMMARY | 2024-11-02 17:27 | XMS_ITS | Clinical Summary ---
Author Organization [facility] [address] [facility] Address [address] [place] [address] Phone Care Team Providers Care Softball Winder Name Role Phone Anabela Jin MD Primary [...] 1994 Colon cancer screening, Colonoscopy 1999 RSV Immunization (1 - Risk 60-74 years 1-dose series) 2014 Osteoporosis screening (bone density) 2019 Hemoglobin A1C 03/19/2024 12/18/2023, 11/24/2023 Covid-19 vaccine series ( season) 2024 07/02/2022, 11/28/2021, 01/13/2021, Additional history exists LDL monitoring 12/17/2024 12/18/2023 Urine Microalbumin 01/14/2025 01/15/2024, 12/18/2023 Influenza vaccine 03/28/2025 04/04/2023, , 06/10/2019, Additional history exists Pneumococcal Vaccine (50+ years) Completed 12/07/2021, 11/15/2020, [...] Comment Performing Lab: ?Site ID: [id number] ?Name: [facility] ?Address: [address] [place] [phone] ?Director: Robbin Monroy M.D. Jewell Estrada APRN URINE ORDERABLES Final Result [facility] [address] * (ABNORMAL) Lipid panel with reflex to direct LDL (Q) (12/18/2023 11:43 AM EDT) [facility] Cholesterol, Total 284(H) <200 mg/dL [facility] [...] LDL-C. Wade VARGAS et al. MAXIMILIANO. 2013;310(19): 4232-0225 (http://education.As Seen on TV.ELENZA/faq/CXV941) Chol/HDL Ratio 5.7(H) <5.0 (calc) [facility] [...] Comment Performing Lab: ?Site ID: [id number] ?Name: [facility] ?Address: [address] [place] [phone] ?Director: Robbin Monroy M.D. Jewell Estrada APRN LAB BLOOD ORDERABLES Final Re sult [facility] [address] [place] [address] * POCT glycosylated hemoglobin (HgbA1c), total (46310) (12/18/2023 9:13 AM EDT) Hemoglobin A1C, POC 11.3 4.0 - 6.0 % [facility] Test Lot Number [id number] [facility] Test Lot Exp Date 09/08/25 Date Format: MM/DD/YYYY [facility] 12/18/2023 9:13 AM EDT Jewell Estrada APRN POINT OF CARE TEST ORDERABLES Final Result Performing Organization Address [facility] Co de Phone Number [facility] from Last 3 Months or Most Recently Relevant to Health Maintenance Insurance MEDICARE [id number] MEDICAID MEDICARE [id number] MEDICAID MEDICAID [place] AETNA [facility] MEDICARE [id number] MEDICAID Care Teams Softball Winder Relationship Specialty Start Date End Date Anabela Jin MD [address] [place] [address] [place] [phone] PCP - General Internal Medicine 11/24/23
--- OUTSIDE RECORDS SUMMARY | 2024-11-02 17:27 | XMS_ITS | Clinical Summary ---
Author Organization [facility] Address [address] [place] [address], [place] [address] Care Team Providers Care Senior Animator Name Role Phone Anabela Jin MD Primary Care Provider [phone] Allergies Active Allergy Reactions Criticality Noted Date [...] [place] Care Teams Senior Animator Relationship Specialty Start Date End Date Anabela Jin MD [address] [place], [place] PCP - General Internal Medicine 09/03/21
--- OUTSIDE RECORDS SUMMARY | 2024-11-02 17:27 | XMS_ITS | Clinical Summary ---
Author Organization [facility] Address [address] [place] [address] Care Team Providers Care Food And Beverage Outlets Manager Name Role Phone Anabela Jin MD Primary Care Provider [phone] Allergies Active Allergy Reactions Criticality Noted Date [...] age to complete this topic Care Teams Food And Beverage Outlets Manager Relationship Specialty Start Date End Date Anabela Jin MD [address] [place] [address] PCP - General Family Medicine 02/17/21
== END 2024-11-02 13:08 | disposition home or self-care (01) ==
LOC: HO.LAB 13:07
PROVIDERS: PCP Internal Medicine; Visit Provider Physician Assistant Medical
DX: R35.0 Frequency of micturition (principal); R39.9 Unspecified symptoms and signs involving the genitourinary system; E11.21 Type 2 diabetes mellitus with diabetic nephropathy; E11.65 Type 2 diabetes mellitus with hyperglycemia; Z79.4 Long term (current) use of insulin
CPT/HCPCS: 81001; 82947; 87086; 99212

== ENCOUNTER 2024-11-02 13:07 | Outpatient (AMB) | payer MEDICARE, MEDICAID, SELFPAY ==
[2024-11-02 13:20] VITALS: BP 118/70; PULSE 81; O2SAT 98; BMI 29.6
--- NOTE | 2024-11-02 13:20 | A.OFFVIS_ITS ---
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 Last Diabetic Eye exam: Legally Blind Last Podiatry Visit: Does not see a Hat Cleaner Random Glucose:99 mg/dl HgA1C: 7.0% 10/05/2024 Patient would like to talk about Jardiance today. Heavy Duty Truck Mechanic Required: Yes Heavy Duty Truck Mechanic Services: Heavy Duty Truck Mechanic Present Heavy Duty Truck Mechanic Name: [id number] Janie Allergies lisinopril Allergy (Severe, Verified 11/02/24 13:34) Swelling metformin Allergy (Intermediate, Verified 11/02/24 13:34) Intolerance, chest pain, high BP, diarrhea pantoprazole Allergy (Intermediate, Verified 11/02/24 13:34) rash quetiapine Allergy (Intermediate, Verified 11/02/24 13:34) chest pain orange juice Allergy (Intermediate, Uncoded 11/02/24 13:34) gerd HPI Comments Details: This is a 69-year-old female with a past medical history of dementia, legal blindness, type 2 diabetes, dyslipidemia, hypertension, obesity, GERD and chronic constipation presenting for diabetic management. She is with her daughter, Nicolette. Reviewed Stephon 3 data CGM active 87% Average glucose 142 mg/dL G NV 6.7% Glucose variability 33.3% Very high 2% High 19% Target range 77% Low 2% 0% very low Hypoglycemia overnight and mid morning. We reviewed this again today. Her daughter tells me that when they get an alert she checks a fingerstick glucose, and this is always normal. She has no symptoms of hypoglycemia when she gets these alerts. Hemoglobin a1c 7.0% 10/05/2024. Microvascular complications: neuropathy, nephropathy (microalbumin) Macrovascular complications: none Hypertension: treated with amlodipine 10 mg, chlorthalidone 25 mg. Intolerant to DEBBY inhibitor which caused swelling. Hyperlipidemia: treated with atorvastatin 40 mg and Zetia 10 mg daily. LDL at goal <100. Current medication regimen: Lantus 10 units nightly, glipizide ER 10 mg daily, Trulicity 3 mg weekly. Patient's daughter is unsure if she has been taking glipizide. The last prescription in her chart was from 2022. She is going to call back when she is home to review all of the patient's medications on the phone so we can update our EMR. Past medication: Intolerant to metformin which caused diarrhea, chest pain and elevated blood pressure. Jardiance discontinued due to vaginitis and UTI. She still has urinary frequency but no dysuria, hematuria, fevers, chills or flank pain. They report she is seeing a specialist who was also evaluating an endometrial polyp, and she had a CAT scan done a week or so ago, and they are waiting to hear about the results from [facility]. She saw the art educator and hotel casino floorperson. Hypoglycemia symptoms: none. Denies episodes. Hyperglycemia symptoms: none. Denies episodes. ROS: Constitutional: No unexplained weight loss, fever, chills. Respiratory: No shortness of breath Cardiovascular: No chest pain Gastrointestinal: No nausea, vomiting or abdominal pain. Genitourinary: No dysuria, hematuria, urinary frequency. Neurologic: No headache, dizziness, syncope Skin: No rash or itching. Endocrine: No polyuria or polydipsia. Physical exam: Constitutional: Alert, in no distress. Mouth: No erythema , swelling or lesions. Respiratory: Clear to auscultation. Cardiovascular: S1 S2 regular. III/ systolic murmur. Back: No CVA tenderness [facility] Medical History (Updated 11/02/24 @ 13:50 by ANTONIO Beatty) Urinary frequency Aortic stenosis Uncontrolled type 2 diabetes mellitus with hyperglycemia, with long-term current use of insulin Shortness of breath Chest pain Fissure in skin of foot Impacted cerumen of left ear Dyspepsia Cyst of skin Left shoulder pain Diabetes mellitus Hospital discharge follow-up Medicare annual wellness visit, subsequent Cellulitis of left leg Dementia Retinitis pigmentosa of both eyes GERD (gastroesophageal reflux disease) Obesity (BMI 30-39.9) Vitamin D deficiency Dyslipidemia Hypertension Diabetic polyneuropathy associated with type 2 diabetes mellitus Diabetic nephropathy associated with type 2 diabetes mellitus Diabetes type 2, uncontrolled Surgical History History of esophagogastroduodenoscopy (EGD) H/O colonoscopy Hx of cholecystectomy Hx of tubal ligation Hx of hernia repair Family History Father No problems noted. Mother Heart disease HTN (hypertension) Sister Pre-diabetes Brother Leukemia Son In good health Daughter In good health Daughter In good health Social History Household Members: Family Housing: Apartment Alcohol intake: never Patient Tobacco Use Status: Never used Tobacco e-Cigarette/Vaping Use: Never Used Second Hand Smoke Exposure: No service: No Current occupational status: disabled Cognitive needs: No Hearing needs: No Vision needs: No Physical Exam Vital Signs: Last Vital Signs Pulse 81 11/02/24 13:20 BP 118/70 11/02/24 13:20 Pulse Ox 98 11/02/24 13:20 Oxygen Delivery Method Room Air 11/02/24 13:20 BMI result Body Mass Index 29.6 Office Procedures Glucose Monitoring Details Details: See [facility] [address] - Glucose monitoring, continuous-physician I&R Procedure code (CPT) selection complete Results Reviewed Results Reviewed: Laboratory Last Values Glucose (Clinic) 99 mg/dL (60-115) 11/02/24 13:42 Laboratory Tests 07/02/24 07/02/24 09:24 09:25 Creatinine 0.81 Estimated GFR > 60 AST 21 ALT 22 Triglycerides 177 H Cholesterol 149 LDL Cholesterol, Calc 72 HDL Cholesterol 42 Urine Creatinine 63.32 Urine Microalbumin 58.0 Microalb/Creat Ratio 91.5 H Assessment & Plan Assessment & Plan (1) Uncontrolled type 2 diabetes mellitus with hyperglycemia, with long-term current use of insulin: Code(s): E11.65 - Type 2 diabetes mellitus with hyperglycemia; Z79.4 - termite treater helper (current) use of insulin Category: Medical (2) Diabetic nephropathy associated with type 2 diabetes mellitus: Code(s): E11.21 - Type 2 diabetes mellitus with diabetic nephropathy Category: Medical Plan In summary this is a 69-year-old female with controlled type 2 diabetes on her current regimen. Her daughter is unsure if she has been taking glipizide ER 10 mg daily. She will call back to review medications over the phone. Continue Trulicity 3 mg weekly. She has no side effects after taking the medication yesterday at this dosage for the 1st time. Continue Lantus 10 units daily. Reviewed diabetic diet. Reviewed comorbidities associated with type 2 diabetes. Bring glucometer to all appointments. Reviewed treatment of hypo and hyperg lycemia. CGM alerting to hypoglycemia, but fingerstick glucose readings have been normal. They will call if fingerstick glucose readings confirm hypoglycemic episodes to adjust medications. Check UA and culture today as she reports some urinary frequency and had a recent urinary infection. Follow up in 3 months for Type II DM. Orders: Orders UA w Microscopic Today R35.0 - Frequency of micturition, R39.9 - Unspecified symptoms and signs involving the genitourinary system AMB Glucose Monitoring Today E11.9 - Type 2 diabetes mellitus without complications Urine Culture Today R35.0 - Frequency of micturition, R39.9 - Unspecified symptoms and signs involving the genitourinary system Coding Level of Care Code Est Pt Level 4 (49471) Diagnoses Uncontrolled type 2 diabetes mellitus with hyperglycemia, with long-term current use of insulin E11.65; Z79.4 Diabetic nephropathy associated with type 2 diabetes mellitus E11.21 CPT Codes Details - CPT: 92920 - Glucose monitoring, continuous-physician I&R ([id number])
[2024-11-02 13:48] LABS: Glucose, Whole Blood 99 mg/dL (60-115)
--- OUTSIDE RECORDS SUMMARY | 2024-11-02 15:59 | XMS_ITS | Clinical Summary ---
Author Organization [facility] Address [address] [place] [address] Care Team Providers Care Cinder Pitman Name Role Phone Anabela Jin MD Primary Care Provider [phone] Allergies Active Allergy Reactions Criticality Noted Date [...] age to complete this topic Care Teams Cinder Pitman Relationship Specialty Start Date End Date Anabela Jin MD [address] [place] [address] PCP - General Family Medicine 02/17/21
--- OUTSIDE RECORDS SUMMARY | 2024-11-02 15:59 | XMS_ITS | Clinical Summary ---
Author Organization [facility] Address [address] [place] [address], [place] [address] Care Team Providers Care Pharmacy Innovation Assistant Name Role Phone Anabela Jin MD Primary Care Provider [phone] Allergies Active Allergy Reactions Criticality Noted Date [...] Diabetes: Visual Foot Exam 08/27/2020 Influenza Vaccine (Season Ended) 2025 Hepatitis B Vaccine Aged Out No longe r eligible based on patient's age to complete this topic Insurance [place] Care Teams Pharmacy Innovation Assistant Relationship Specialty Start Date End Date Anabela Jin MD [address] [place], [place] PCP - General Internal Medicine 09/03/21
--- OUTSIDE RECORDS SUMMARY | 2024-11-02 15:59 | XMS_ITS | Clinical Summary ---
Author Organization [employer] [facility] Address [address] [facility] [address] [facility] 7t [place] [address] Care Team Providers Care Police Officer Name Role Phone Unavailable Primary Care Provider [...] patient's age to complete this topic Insurance [facility] STANDARD MEDICARE
== END 2024-11-02 14:03 | disposition home or self-care (01) ==
LOC: HO.ENCR 13:08
PROVIDERS: PCP Internal Medicine; Visit Provider Physician Assistant Medical
DX: E11.65 Type 2 diabetes mellitus with hyperglycemia (principal); Z79.4 Long term (current) use of insulin; E11.21 Type 2 diabetes mellitus with diabetic nephropathy

== ENCOUNTER 2024-11-08 12:59 | Outpatient (AMB) | payer MEDICARE, MEDICAID, SELFPAY ==
--- NOTE | 2024-11-08 13:27 | A.OFFVIS_ITS ---
VS Expanded 11/08/24 13:28 Height 5 ft Weight 150 lb 5.684 oz BMI 29.4 Intake Visit Reasons: T2DM Allergies lisinopril Allergy (Severe, Verified 11/02/24 13:34) Swelling metformin Allergy (Intermediate, Verified 11/02/24 13:34) Intolerance, chest pain, high BP, diarrhea pantoprazole Allergy (Intermediate, Verified 11/02/24 13:34) rash quetiapine Allergy (Intermediate, Verified 11/02/24 13:34) chest pain orange juice Allergy (Intermediate, Uncoded 11/02/24 13:34) gerd Nutrition Presentation Details: Pt presents for MNT f/u for T2DM Pt is legally blind and presents with daughter who is main care information associate food frequency fruits: 0-1/d fish : 1/x oatmeal 2 x/ wk juices: diluting with water milk in cereal fried foods: 1 x/wk typical meal intake: B: oatmeal/2% milk L: bread w tuna and salad D: avocado with rice/chicken crackers /fruits physical activity : sedentary BS Monitoring Most Recent Diabetes Results: No Data to Display [facility] Medical History (Updated 11/02/24 @ 13:50 by ANTONIO Beatty) Urinary frequency Aortic stenosis Uncontrolled type 2 diabetes mellitus with hyperglycemia, with long-term current use of insulin Shortness of breath Chest pain Fissure in skin of foot Impacted cerumen of left ear Dyspepsia Cyst of skin Left shoulder pain Diabetes mellitus Hospital discharge follow-up Medicare annual wellness visit, subsequent Cellulitis of left leg Dementia Retinitis pigmentosa of both eyes GERD (gastroesophageal reflux disease) Obesity (BMI 30-39.9) Vitamin D deficiency Dyslipidemia Hypertension Diabetic polyneuropathy associated with type 2 diabetes mellitus Diabetic nephropathy associated with type 2 diabetes mellitus Diabetes type 2, uncontrolled Surgical History History of esophagogastroduodenoscopy (EGD) H/O colonoscopy Hx of cholecystectomy Hx of tubal ligation Hx of hernia repair Family History Father No problems noted. Mother Heart disease HTN (hypertension) Sister Pre-diabetes Brother Leukemia Son In good health Daughter In good health Daughter In good health Social History Household Members: Family Housing: Apartment Alcohol intake: never Patient Tobacco Use Status: Never used Tobacco e-Cigarette/Vaping Use: Never Used Second Hand Smoke Exposure: No service: No Current occupational status: disabled Cognitive needs: No Hearing needs: No Vision needs: No Assessment & Plan Assessment & Plan (1) Diabetes type 2, uncontrolled: Code(s): E11.65 - Type 2 diabetes mellitus with hyperglycemia Category: Medical Qualifiers: Glycemic state: with hyperglycemia Qualified Code(s): E11.65 - Type 2 diabetes mellitus with hyperglycemia Plan: Wt: 61 Kg ( 04/20 ), 61.8 kg(06/20), 68 kg (11/19) Est kcal needs as per MSJ: 0086-2814 (40% carb, 30% protein/fat) Est fluid needs as per 25-30 ml/d: 1800 Est prot per day as per 1 g/kg bw: 61 Recommend fiber intake : 8-10 g per day and gradually increase to 25-28 g per day for women and 35-38 g for men or as tolerated Recommend sodium intake per day : less than 1500 mg less than 2000 mg Educated patient on: ( R = reviewed V = verbalizes understanding N/R = needs review N/A = not applicable * Food sources of carbohydrate, adequate serving sizes and its role in various health conditions: R * Differences between complex carbohydrates a simple carbohydrates, role of fiber in diet: R V N/R * Lean protein sources of foods: R * Differences between types of fats and role in diet (mono on saturated fat fatty acids, saturated fatty acids, trans fats): R V N/R * Food sources of sodium in salt and healthy modifications for heart health in kidney health: R V R/V * Vitamins and minerals: R V N/R * Healthy plate method concept: R * Physical activity: Benefits a precaution: R * Hypoglycemia protocol (rule of 15): R V N/R * Dietary prevention of Hyperglycemia: R Patient Instructions: Choose unsaturated fats (olive oil, peanut butter , avocado as example Choose brown rice at dinner time, add spinach, choose fiber rich foods in evening meal Coding Level of Care Code Nutr Indiv Subseq ([id number]) Diagnoses Uncontrolled type 2 diabetes mellitus with hyperglycemia E11.65 Glycemic state: with hyperglycemia Time Spent (min) 30
[2024-11-08 13:28] VITALS: BMI 29.4
--- OUTSIDE RECORDS SUMMARY | 2024-11-08 15:07 | XMS_ITS | Clinical Summary ---
Author Organization [facility] Address [address] [place] [address] Phone Care Team Providers Care Stringer Up Soldering Machine Name Role Phone Anabela Jin MD Primary [...] Comment Performing Lab: ?Site ID: [id number] ?Name: [facility] ?Address: [address] [place] [phone] ?Director: Robbin Monroy M.D. Jewell Estrada APRN URINE ORDERABLES Final Result [facility] [address] * (ABNORMAL) Lipid panel with reflex to direct LDL (Q) (12/18/2023 11:43 AM EDT) [facility] Cholesterol, Total 284(H) <200 mg/dL [facility] [...] LDL-C. Wade VARGAS et al. MAXIMILIANO. 2013;310(19): 8918-1991 (http://[email or web address].Owtware/faq/UFC851) Chol/HDL Ratio 5.7(H) <5.0 (calc) [facility] [...] Comment Performing Lab: ?Site ID: [id number] ?Name: [facility] ?Address: [address] [place] [id number] ?Director: Robbin Monroy M.D. Jewell Estrada APRN LAB BLOOD ORDERABLES Final Re sult [facility] [address] [place] [address] * POCT glycosylated hemoglobin (HgbA1c), total (32507) (12/18/2023 9:13 AM EDT) Hemoglobin A1C, POC 11.3 4.0 - 6.0 % [facility] Test Lot Number [id number] [facility] Test Lot Exp Date 09/08/25 Date Format: MM/DD/YYYY [facility] 12/18/2023 9:13 AM EDT Jewell Estrada APRN POINT OF CARE TEST ORDERABLES Final Result Performing Organization Address [facility] Co de Phone Number [facility] from Last 3 Months or Most Recently Relevant to Health Maintenance Insurance MEDICARE [id number] MEDICAID MEDICARE [id number] MEDICAID MEDICAID [place] [facility] MEDICARE [id number] MEDICAID Care Teams Stringer Up Soldering Machine Relationship Specialty Start Date End Date Anabela Jin MD [address] [place] [address] [place] [address] PCP - General Internal Medicine 11/24/23
--- OUTSIDE RECORDS SUMMARY | 2024-11-08 15:07 | XMS_ITS | Encounter Summary ---
Author Organization [facility] Address [address] [place] [address] Phone -x2013 Care Team Providers Care Egg Tester Name Role Phone Anabela Jin MD Primary Care Provid er Reason for Visit * Reason Onset Date Comments Medication Problem 12/29/2023 semaglutide ( OZEMPIC) 0.25 mg or 0.5 mg (2 mg/3 mL) pen injector Advice Only 12/29/2023 Encounter Details Date Type Department Care Team ([facility] st Contact Info) Description 12/29/[address] [address] Anabela Jin MD [address] [place] [address] [place] [phone] Medication Problem (semaglutide [...] James RN - 12/29/2023 4:15 PM EDT #[id number] austrian interpretor Called back pt and relayed medication [...] she didn't understand the previous call with product development ecologist states line was cutting out and requesting a callback to get clarification on Rx if pt has to take .25 or 0.5mg and for how long please callback to advise Specify Name of Medication: semaglutide (OZEMPIC) 0.25 mg or 0.5 mg (2 mg/3 mL) pen injector Refill status:0 Preferred Language:austrian Caller was aware message would be routed to PCP team for review and F/U. Caller made aware of form policy. Caller verbalized understating and had no further question at this time. * Telephone Encounter - Priscilla Wilson - 12/29/2023 9:14 AM EDT Reason for call:states she didn't understand the previous call with product development ecologist states line was cutting out and requesting a callback to get clarification on Rx if pt has to take .25 and for how longplease callback to advise Medication Issue/Schedule Appointment F/FU/Authorization Request: Specify Name of Medication:semaglutide (OZEMPIC) 0.25 mg or 0.5 mg (2 mg/3 mL) pen injector Refill status:0 Preferred Language:austrian Caller was aware message would be routed [...] documented as of this encounter Care Teams Egg Tester Relationship Specialty Start Date End Date Anabela Jin MD [address] [place] [address] [place] [phone] PCP - General Internal Medicine 11/24/23 documented as of this encounter
--- OUTSIDE RECORDS SUMMARY | 2024-11-08 15:07 | XMS_ITS | Clinical Summary ---
Author Organization [employer] [facility] Address [address] [place] [address] Care Team Providers Care Web Press Operator Apprentice Name Role Phone Unavailable Primary Care Provider [...] patient's age to complete this topic Insurance [facility] STANDARD MEDICARE
--- OUTSIDE RECORDS SUMMARY | 2024-11-08 15:08 | XMS_ITS | Clinical Summary ---
Author Organization [facility] Address [address] [place] [address] Care Team Providers Care Audiology Assistant Name Role Phone Anabela Jin MD Primary Care Provider [phone] Allergies Active Allergy Reactions Criticality Noted Date [...] age to complete this topic Care Teams Audiology Assistant Relationship Specialty Start Date End Date Anabela Jin MD [address] [place] [address] PCP - General Family Medicine 02/17/21
--- OUTSIDE RECORDS SUMMARY | 2024-11-08 15:08 | XMS_ITS | Encounter Summary ---
Author Organization [facility] Address [address] [place] [address] Phone -x2013 Care Team Providers Care Veneer Layer Name Role Phone Anabela Jin MD Primary Care Provid er Reason for Visit * Reason Comments Med Change Request Encounter Details Date Type Department Care Team (Late st Contact Info) Description 12/25/2023 [facility] [address] [place] [address] Jewell Estrada APRN [address] [place] [address] Med Change Request Social History [...] documented as of this encounter Care Teams Veneer Layer Relationship Specialty Start Date End Date Anabela Jin MD [address] [place] [address] [place] [phone] PCP - General Internal Medicine 11/24/23 documented as of this encounter
--- OUTSIDE RECORDS SUMMARY | 2024-11-08 15:08 | XMS_ITS | Encounter Summary ---
Author Organization [facility] Address [address] [place] [address] Phone -x2013 Care Team Providers Care Sales Clerk Supervisor Name Role Phone Anabela Jin MD Primary Care Provid er Reason for Visit * Reason Comments Med Change Request Encounter Details Date Type Department Care Team (Late st Contact Info) Description 02/05/[address] [address] Jewell Estrada APRN [address] [place] [address] Med Change Request Social History [...] documented as of this encounter Care Teams Sales Clerk Supervisor Relationship Specialty Start Date End Date Anabela Jin MD [address] [place] [address] [place] [phone] PCP - General Internal Medicine 11/24/23 documented as of this encounter
--- OUTSIDE RECORDS SUMMARY | 2024-11-08 15:08 | XMS_ITS | Encounter Summary ---
Author Organization [facility] Address [address] [place] [address] Phone -x2013 Care Team Providers Care Deicer Inspector Pneumatic Name Role Phone Anabela Jin MD Primary Care Provid er Reason for Visit * Reason Comments Medication Refill Encounter Details Date Type Department Care Team (Late st Contact Info) Description 02/25/2024 Refill [facility] [address] [place], [place] [id number] Jewell Estrada APRN [address] [place] [address] Medication Refill Social History Tobacco [...] documented as of this encounter Care Teams Deicer Inspector Pneumatic Relationship Specialty Start Date End Date Anabela Jin MD [address] [facility] [address] [place], [place] [phone] PCP - General Internal Medicine 11/24/23 documented as of this encounter
--- OUTSIDE RECORDS SUMMARY | 2024-11-08 15:08 | XMS_ITS | Encounter Summary ---
Author Organization [facility] Address [address] [place] [address] Phone -x2013 Care Team Providers Care Cigarette Catcher Name Role Phone Anabela Jin MD Primary Care Provid er Reason for Visit * Reason Comments Med Change Request Encounter Details Date Type Department Care Team (Late st Contact Info) Description 01/27/2024 [facility] [address] [place], [place] [phone] Jewell Estrada APRN [address] [place] [address] Med Change Request Social History [...] documented as of this encounter Care Teams Cigarette Catcher Relationship Specialty Start Date End Date Anabela Jin MD [address] [place], [place] [phone] PCP - General Internal Medicine 11/24/23 documented as of this encounter
--- OUTSIDE RECORDS SUMMARY | 2024-11-08 15:08 | XMS_ITS | Clinical Summary ---
Author Organization [facility] Address [address] [place] [address], [place] [address] Care Team Providers Care Lead Machinist Name Role Phone Anabela Jin MD Primary [...] type 2 diabetes mellitus 0 10/30/2020 Immunizations Immunization Administration Dates Next Due Pfizer SARS-COV-2 01/13/2021,12/23/2020 [...] Comments Breast Cancer Screening 1955 Pneumococcal Vaccine: 50+ Ye ars (1 of 2 - PCV) 1973 Colorectal Cancer Screening: Annual FOBT 2003 Colorectal Cancer Screening: Colonoscopy 2003 Colorectal Cancer Screening: Sigmoidoscopy 2003 Diabetes: Hemoglobin A1C 08/27/2020 Diabetes: Ophthalmology Exam 08/27/2020 Diabetes: Pedal Pulse Checked 08/27/2020 Diabetes: Sensory Foot Exam 08/27/2020 Diabetes: Visual Foot Exam 08/27/2020 Influenza Vaccine (Season Ended) 2025 Hepatitis B Vaccine Aged Out No longe r eligible based on patient's age to complete this topic Insurance Medicare Medicaid [place] Medicare Medicaid [place] Care Teams Lead Machinist Relationship Specialty Start Date End Date Anabela Jin MD [address] [place], [place] PCP - General Internal Medicine 09/03/21
--- OUTSIDE RECORDS SUMMARY | 2024-11-08 15:08 | XMS_ITS | Encounter Summary ---
Author Organization [facility] Address [address] [place] [address] Phone -x2013 Care Team Providers Care Gig Tender Name Role Phone Anabela Jin MD Primary Care Provid er Reason for Visit * Reason Onset Date Comments Medication Problem 12/25/2023 dulaglutide 3 mg/0.5 mL PnIj Encounter Details Date Type Department Care Team (Late st Contact Info) Description 12/25/[address] [address] Anabela Jin MD [address] [place] [address] [place] [phone] Medication Problem (dulaglutide [...] 3 mg/0.5 mL PnIj Refill status: Preferred Language:Luxembourger Caller was aware message would be routed [...] documented as of this encounter Care Teams Gig Tender Relationship Specialty Start Date End Date Anabela Jin MD [address] [place] [address] [place] [phone] PCP - General Internal Medicine 11/24/23 documented as of this encounter
== END 2024-11-08 14:00 | disposition home or self-care (01) ==
LOC: HO.ENCR 13:11
PROVIDERS: PCP Internal Medicine; Visit Provider Dietitian, Registered
DX: E11.65 Type 2 diabetes mellitus with hyperglycemia (principal)

== ENCOUNTER → 2024-11-08 12:59 | Outpatient (BNVA) | payer MEDICARE, MEDICAID, SELFPAY | PROVIDERS: PCP Internal Medicine; Visit Provider Dietitian, Registered | DX: E11.65 Type 2 diabetes mellitus with hyperglycemia (principal); Z71.3 Dietary counseling and surveillance | CPT/HCPCS: 97803 ==

== ENCOUNTER 2024-11-16 09:19 | Outpatient (REF) | payer MEDICARE, MEDICAID, SELFPAY ==
--- NOTE | ~2024-11-16 | FL_ITS ---
EXAMINATION: UPPER GI SERIES WITH AIR CONTRAST. CLINICAL INFORMATION: Gastroesophageal reflux disease COMPARISON: None available. TECHNIQUE: Routine upper GI air contrast study was performed in upright and lying position. FINDINGS: Allowing oral administration of thick barium and effervescent granules there is normal propagation bolus from the oral cavity through the pharynx, esophagus into stomach without any evidence of obstruction, narrowing or stricture. There is no laryngeal penetration or aspiration. No retention of barium in the valleculae or piriform sinuses. On placing patient supine and prone lying the stomach is nondistended. The course and caliber of the stomach, duodenal bulb and this CT is normal. Mucosal pattern of the stomach, duodenal bulb and CT is normal. A very small sliding hiatal hernia with mild gastroesophageal reflux seen. Incidental finding of cholecystectomy. FLUOROSCOPY TIME: 2 minutes 23 seconds DOSE AREA PRODUCT: 1818 uGy-m2 (microgray-meter squared) FL/FL upper GI series IMPRESSION: Small sliding hiatal hernia with mild gastroesophageal reflux. Electronically signed by: Patrick Phan MD 11/16/2024 03:59 PM EDT
--- OUTSIDE RECORDS SUMMARY | 2024-11-16 10:04 | XMS_ITS | Encounter Summary ---
Author Organization [facility] Address [address] [place] [address] Phone -x2013 Care Team Providers Care Heavy Coil Winder Name Role Phone Anabela Jin MD Primary Care Provid er Reason for Visit * Reason Comments Med Change Request Encounter Details Date Type Department Care Team (Late st Contact Info) Description 12/25/2023 [facility] [address] [place] [address] Jewell Estrada APRN [address] [place] [address] Med Change Request Social History [...] documented as of this encounter Care Teams Heavy Coil Winder Relationship Specialty Start Date End Date Anabela Jin MD [address] [place] [address] [place] [phone] PCP - General Internal Medicine 11/24/23 documented as of this encounter
--- OUTSIDE RECORDS SUMMARY | 2024-11-16 10:04 | XMS_ITS | Encounter Summary ---
Author Organization [facility] Address [address] [place] [address] Phone -x2013 Care Team Providers Care Heeler Machine Name Role Phone Anabela Jin MD Primary Care Provid er Reason for Visit * Reason Onset Date Comments Medication Problem 12/29/2023 semaglutide ( OZEMPIC) 0.25 mg or 0.5 mg (2 mg/3 mL) pen injector Advice Only 12/29/2023 Encounter Details Date Type Department Care Team ([facility] st Contact Info) Description 12/29/[address] [address] Anabela Jin MD [address] [place] [address] [place] [phone] Medication Problem (semaglutide [...] James RN - 12/29/2023 4:15 PM EDT #[id number] namibian interpretor Called back pt and relayed medication [...] she didn't understand the previous call with corporate legal intern states line was cutting out and requesting a callback to get clarification on Rx if pt has to take .25 or 0.5mg and for how long please callback to advise Specify Name of Medication: semaglutide (OZEMPIC) 0.25 mg or 0.5 mg (2 mg/3 mL) pen injector Refill status:0 Preferred Language:namibian Caller was aware message would be routed to PCP team for review and F/U. Caller made aware of form policy. Caller verbalized understating and had no further question at this time. * Telephone Encounter - Priscilla Wilson - 12/29/2023 9:14 AM EDT Reason for call:states she didn't understand the previous call with corporate legal intern states line was cutting out and requesting a callback to get clarification on Rx if pt has to take .25 and for how longplease callback to advise Medication Issue/Schedule Appointment F/FU/Authorization Request: Specify Name of Medication:semaglutide (OZEMPIC) 0.25 mg or 0.5 mg (2 mg/3 mL) pen injector Refill status:0 Preferred Language:namibian Caller was aware message would be routed [...] documented as of this encounter Care Teams Heeler Machine Relationship Specialty Start Date End Date Anabela Jin MD [address] [place] [address] [place] [phone] PCP - General Internal Medicine 11/24/23 documented as of this encounter
--- OUTSIDE RECORDS SUMMARY | 2024-11-16 10:04 | XMS_ITS | Clinical Summary ---
Author Organization [facility] Address [address] [place] [address] Care Team Providers Care Computer Artist Name Role Phone Anabela Jin MD Primary Care Provider [phone] Allergies Active Allergy Reactions Criticality Noted Date Comments Insulin Glargine Other (See Comments) 1 Chest pain Metformin Unknown/Patient and Family Unable to Define Medium 10/30/2020 Medications OMEprazole (PriLOSEC) 20 MG capsule Take 1 capsule by mouth. Active Jardiance 25 MG tablet 1 Active lisinopril (PRINIVIL,ZeSTRI L) 40 MG tablet Take 1 tablet by mouth. Active amLODIPine (NORVASC) 5 MG tablet Comments: Filled Date: Aug 21 2020 1:23PM Patient Notes: TAKE 1 TABLET BY MOUTH ONCE A DAY Duration: 90 1 Active mirtazapine (REMERON) 45 MG tablet 1 Active naproxen (NAPROSYN) 500 MG tablet 1 Active atorvastatin (LIPITOR) 80 MG tablet 1 Active dicyclomine (BENTYL) 20 MG tablet Take 10 mg by mouth 4 (four) times a day. Active dulaglutide (TRULICITY) 0.75 MG/0.5ML subcutaneous injection Inject 0.75 mg under the skin once a week. Active cephalexin (KEFLEX) 500 MG capsule Take 1 capsule (500 mg total) by mouth 4 (four) times a day. Take as directed or until you run out 28 capsule 1 Active neomycin-bacitra mable-polymyxin B (NEOSPORIN) ointment Apply 1 application topically 2 (two) times a day. 15 g Active Immunizations Immunization Administration Dates Next Due Covid-19 MRNA Vaccine - Pfizer 12+ (Purple Cap) 01/13/2021,12/23/2020 Social History Tobacco Use Types Packs/Day Years Used Date Smoking Tobacco: Never Smokeless Tobacco: Never Alcohol Use Standard Drinks/Week Comments Never 0 (1 standard drink = 0.6 oz pur e alcohol) Comments No Sex and Gender Information Value Date Recorded Sex Assigned at Not on file Legal Sex Female 10:09 AM EDT Gender Identity Not on file [...] patient's age to complete this topic Insurance [facility] MEDICARE PART A & B Care Teams Computer Artist Relationship Specialty Start Date End Date Anabela Jin MD [address] [place] [address] PCP - General Family Medicine 02/17/21
--- OUTSIDE RECORDS SUMMARY | 2024-11-16 10:04 | XMS_ITS | Clinical Summary ---
Author Organization [facility] Address [address] [place] [address], [place] [address] Care Team Providers Care Electrical Assemblies Supervisor Name Role Phone Anabela Jin MD Primary Care Provider [phone] Allergies Active Allergy Reactions Criticality Noted Date [...] Medicaid [place] Care Teams Electrical Assemblies Supervisor Relationship Specialty Start Date End Date Anabela Jin MD [address] [place], [place] PCP - General Internal Medicine 09/03/21
--- OUTSIDE RECORDS SUMMARY | 2024-11-16 10:04 | XMS_ITS | Clinical Summary ---
Author Organization [employer] [facility] Address [address] [facility] [facility] 7[address] [place] [address] Care Team Providers Care Waste Reduction Coordinator Name Role Phone Unavailable Primary Care Provider [...] patient's age to complete this topic Insurance [facility] STANDARD MEDICARE
--- OUTSIDE RECORDS SUMMARY | 2024-11-16 10:04 | XMS_ITS | Encounter Summary ---
Author Organization [facility] Address [address] [place] [address] Phone -x2013 Care Team Providers Care Steamboat Pilot Name Role Phone Anabela Jin MD Primary Care Provid er Reason for Visit * Reason Comments Medication Refill Encounter Details Date Type Department Care Team (Late st Contact Info) Description 02/25/2024 Refill On [facility] [address] [place], [place] [phone] Jewell Estrada APRN [address] [place] [address] Medication Refill Social History Tobacco [...] documented as of this encounter Care Teams Steamboat Pilot Relationship Specialty Start Date End Date Anabela Jin MD [address] [place], [place] [phone] PCP - General Internal Medicine 11/24/23 documented as of this encounter
--- OUTSIDE RECORDS SUMMARY | 2024-11-16 10:04 | XMS_ITS | Encounter Summary ---
Author Organization [facility] Address [address] [place] [address] Phone -x2013 Care Team Providers Care Paper Deliverer Name Role Phone Anabela Jin MD Primary Care Provid er Reason for Visit * Reason Comments Med Change Request Encounter Details Date Type Department Care Team (Late st Contact Info) Description 01/27/2024 [facility] [address] [place], [place] [phone] Jewell Estrada APRN [address] [place] [address] Med Change Request Social History [...] documented as of this encounter Care Teams Paper Deliverer Relationship Specialty Start Date End Date Anabela Jin MD [address] [place], [place] [phone] PCP - General Internal Medicine 11/24/23 documented as of this encounter
--- OUTSIDE RECORDS SUMMARY | 2024-11-16 10:04 | XMS_ITS | Encounter Summary ---
Author Organization [facility] Address [address] [place] [address] Phone -[phone] Care Team Providers Care Weigher Operator Name Role Phone Anabela Jin MD Primary Care Provid er Reason for Visit * Reason Comments Med Change Request Encounter Details Date Type Department Care Team (Late st Contact Info) Description 02/05/[address] [address] Jewell Estrada APRN [address] [place] [address] Med Change Request Social History [...] documented as of this encounter Care Teams Weigher Operator Relationship Specialty Start Date End Date Anabela Jin MD [address] [place] [address] [place] [phone] PCP - General Internal Medicine 11/24/23 documented as of this encounter
--- OUTSIDE RECORDS SUMMARY | 2024-11-16 10:04 | XMS_ITS | Clinical Summary ---
Author Organization [facility] Address [address] [place] [address] Phone Care Team Providers Care Credit Reference Clerk Name Role Phone Anabela Jin MD [...] Comment Performing Lab: ?Site ID: [id number] ?Name: Motorpaneer-Motorpaneer ?Address: [address] [place] [phone] ?Director: Robbin Monroy M.D. Jewell Estrada APRN URINE ORDERABLES Final Result [facility] [address] * (ABNORMAL) Lipid panel with reflex [...] LDL-C. Wade VARGAS et al. MAXIMILIANO. 2013;310(19): 5118-7878 (http://education.[email or web address]/faq/[email or web address]) Chol/HDL Ratio 5.7(H) <5.0 (calc) [facility] [...] Comment Performing Lab: ?Site ID: [id number] ?Name: Motorpaneer-Motorpaneer ?Address: [address] [place] [phone] ?Director: Robbin Monroy M.D. Jewell Estrada APRN LAB BLOOD ORDERABLES Final Re sult [facility] [address] [place] [address] * POCT glycosylated hemoglobin (HgbA1c), total (64892) (12/18/2023 9:13 AM EDT) Hemoglobin A1C, POC 11.3 4.0 - 6.0 % [facility] Test Lot Number [id number] [facility] Test Lot Exp Date 09/08/25 Date Format: MM/DD/YYYY [facility] 12/18/2023 9:13 AM EDT Jewell Estrada APRN POINT OF CARE TEST ORDERABLES Final Result Performing Organization Address [facility] Co de Phone Number [facility] from Last 3 Months or Most Recently Relevant to Health Maintenance Insurance MEDICARE [id number] MEDICAID MEDICARE [id number] MEDICAID MEDICAID [place] [employer] [facility] MEDICARE [id number] MEDICAID Care Teams Credit Reference Clerk Relationship Specialty Start Date End Date Anabela Jin MD [address] [place] [address] [place] [phone] PCP - General Internal Medicine 11/24/23
--- OUTSIDE RECORDS SUMMARY | 2024-11-16 10:05 | XMS_ITS | Encounter Summary ---
Author Organization [facility] Address [address] [place] [address] Phone -x2013 Care Team Providers Care Capsule Filler Name Role Phone Anabela Jin MD Primary Care Provid er Reason for Visit * Reason Onset Date Comments Medication Problem 12/25/2023 dulaglutide 3 mg/0.5 mL PnIj Encounter Details Date Type Department Care Team (Late st Contact Info) Description 12/25/[address] [address] Anabela Jin MD [address] [place] [address] [place] [phone] Medication Problem (dulaglutide [...] 3 mg/0.5 mL PnIj Refill status: Preferred Language:Djiboutian Caller was aware message would be routed [...] documented as of this encounter Care Teams Capsule Filler Relationship Specialty Start Date End Date Anabela Jin MD [address] [place] [address] [place] [phone] PCP - General Internal Medicine 11/24/23 documented as of this encounter
== END 2024-11-16 09:20 | disposition home or self-care (01) ==
LOC: HO.XRAY 09:19
PROVIDERS: PCP Internal Medicine; Visit Provider Internal Medicine
DX: K21.9 Gastro-esophageal reflux disease without esophagitis (principal); R80.9 Proteinuria, unspecified; E11.21 Type 2 diabetes mellitus with diabetic nephropathy; I10 Essential (primary) hypertension
CPT/HCPCS: 74240; 99212

== ENCOUNTER → 2024-11-16 09:21 | Outpatient (BNV) | payer MEDICARE, MEDICAID, SELFPAY | PROVIDERS: PCP Internal Medicine; Visit Provider Radiology Diagnostic Radiology | DX: K21.9 Gastro-esophageal reflux disease without esophagitis (principal) | CPT/HCPCS: 74246 ==

== ENCOUNTER 2024-11-16 10:42 | Outpatient (AMB) | payer MEDICARE, MEDICAID, SELFPAY ==
[2024-11-16 10:43] VITALS: BP 130/62; PULSE 84; O2SAT 96; BMI 29.7
--- NOTE | 2024-11-16 10:43 | HO.NEPHOV_ITS ---
Vital Signs 11/16/24 10:43 Height 5 ft Weight 152 lb BMI 29.7 BP 130/62 Blood Pressure Location Rt brachial Position Sitting Pulse 84 Pulse Source Pulse Oximeter Pulse Oximetry (%) 96 Oxygen Delivery Method Room Air Intake Visit Reasons: Proteinuria/ Conf Real Estate Utilization Officer Required: Yes Real Estate Utilization Officer Language: Finance Broker Services: Real Estate Utilization Officer Present Real Estate Utilization Officer Name: Torey([id number]) Accompanied by: Daughter Allergies lisinopril Allergy (Severe, Verified 11/16/24 10:45) Swelling metformin Allergy (Intermediate, Verified 11/16/24 10:45) Intolerance, chest pain, high BP, diarrhea pantoprazole Allergy (Intermediate, Verified 11/16/24 10:45) rash quetiapine Allergy (Intermediate, Verified 11/16/24 10:45) chest pain orange juice Allergy (Intermediate, Uncoded 11/16/24 10:45) gerd Medication List - Last Reconciled 11/16/24 by German Vásquez MD acetaminophen (Tylenol) 325 mg PO QID PRN acetaminophen 500 mg PO Q6H PRN adhesive tape (Band-Aid Paper Tape) As directed amlodipine 10 mg PO DAILY 90 days aspirin (Adult Low Dose Aspirin) 81 mg PO DAILY atorvastatin 40 mg PO DAILY 90 days blood sugar diagnostic (FreeStyle Lite Strips) 3 times a day 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 meter (FreeStyle Lite Meter kit) 3 times a day 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 sensor (FreeStyle Stephon 3 Sensor device) apply new sensor every 14 days as directed 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 sensor (FreeStyle Stephon 3 Plus Sensor device) Apply 1 new sensor every 14 days as directed to monitor blood glucose continuously. 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,aluminum boat inspector,cont (FreeStyle Stephon 3 [place]) as directed chlorthalidone 25 mg PO DAILY cholecalciferol (vitamin D3) 25 mcg PO DAILY commode As directed Dexilant (dexlansoprazole) 60 mg PO DAILY NS dicyclomine 20 mg PO QID 30 days dulaglutide (Trulicity) 3 mg (0.5 mL) subcut QWEEK ezetimibe 10 mg PO DAILY 90 days ferrous sulfate 325 mg PO DAILY 90 days gauze bandage (Band-Aid Gauze Pads) As directed glipizide ER 10 mg PO DAILY 90 days glucose (Dex4 Glucose) 16 grams (4 x 4 gram) PO Q15M PRN insulin glargine (Lantus Solostar U-100 Insulin) 10 units (0.1 mL) subcut QPM 90 days lactulose 10 grams (15 mL) PO BEDTIME PRN 30 days lancets (FreeStyle Lancets) 3 times a day loperamide (Imodium A-D) 2 mg PO BID metoclopramide HCl (Reglan) 10 mg PO QIDACHS omega-3 fatty acids-fish oil 300-1,000 mg 1 cap PO BID pen needle, diabetic (Comfort EZ Pen [place]) Use 1 pen needle once a day [personal wipes As directed] sennosides (Senna Laxative) 8.6 mg PO BEDTIME Shower Chair As directed simethicone (Gas Relief (simethicone)) 180 mg PO BID PRN 90 days tramadol 50 mg PO BID PRN 30 days [walker with seat As directed] [wheelchair As directed] HPI Comments Details: 69-year-old woman with a history of longstanding diabetes mellitus. She has been referred for evaluation of microalbuminuria. Blind. History of diabetic polyneuropathy She was on lisinopril and developed swelling of the lips. She has no longer on DEBBY inhibitor due to angioedema. She was accompanied by her daughter. She has retinitis pigmentosa and is legally 05/20/24;c/o burning urination 11/16/24 Here for semiannual follow up Accompanied by daughter Interpretor service was used. Recently treated for vaginal infection [facility] Medical History Urinary frequency Aortic stenosis Uncontrolled type 2 diabetes mellitus with hyperglycemia, with long-term current use of insulin Shortness of breath Chest pain Fissure in skin of foot Impacted cerumen of left ear Dyspepsia Cyst of skin Left shoulder pain Diabetes mellitus Hospital discharge follow-up Medicare annual wellness visit, subsequent Cellulitis of left leg Dementia Retinitis pigmentosa of both eyes GERD (gastroesophageal reflux disease) Obesity (BMI 30-39.9) Vitamin D deficiency Dyslipidemia Hypertension Diabetic polyneuropathy associated with type 2 diabetes mellitus Diabetic nephropathy associated with type 2 diabetes mellitus Diabetes type 2, uncontrolled Surgical History History of esophagogastroduodenoscopy (EGD) H/O colonoscopy Hx of cholecystectomy Hx of tubal ligation Hx of hernia repair Family History Father No problems noted. Mother Heart disease HTN (hypertension) Sister Pre-diabetes Brother Leukemia Son In good health Daughter In good health Daughter In good health Social History Household Members: Family Housing: Apartment Alcohol intake: never Patient Tobacco Use Status: Never used Tobacco e-Cigarette/Vaping Use: Never Used Second Hand Smoke Exposure: No service: No Current occupational status: disabled Cognitive needs: No Hearing needs: No Vision needs: No Physical Exam Vital Signs: Last Vital Signs Pulse 84 11/16/24 10:43 BP 130/62 11/16/24 10:43 Pulse Ox 96 11/16/24 10:43 Oxygen Delivery Method Room Air 11/16/24 10:43 BMI result Body Mass Index 29.7 Comfortable Neck supple no JVD. Lungs entry equal no rales. Heart S1-S2 heard no gallop or rub. Abdomen soft nontender. Neuro alert awake oriented. No asterixis. Extremities no edema. Results Reviewed Results Reviewed: Cr stable Nephrology Results: Urine Protein Trace mg/dL (Neg-Trace) 11/02/24 Assessment & Plan Assessment & Plan (1) Microalbuminuria: Code(s): R80.9 - Proteinuria, unspecified Category: Medical (2) Diabetic nephropathy associated with type 2 diabetes mellitus: Code(s): E11.21 - Type 2 diabetes mellitus with diabetic nephropathy Category: Medical (3) Hypertension: Code(s): I10 - Essential (primary) hypertension Category: Medical Qualifiers: Hypertension type: essential hypertension Qualified Code(s): I10 - Essential (primary) hypertension Plan 69-year-old woman with a history of microalbuminuria most likely due to underlying diabetic kidney disease. Nondiabetic causes seem less likely at this point. Overall blood pressure is well controlled. Goal is to maintain blood pressure less than 130/80. Maintain hemoglobin A1c less than 7%. She we will benefit from DEBBY inhibition. However she has a history of angioedema with DEBBY inhibitors, therefore I would avoid using DEBBY inhibitors or ARBs. We can certainly try using spironolactone - based on BP Will recheck urine protein and decide She will benefit from SGLT2 inhibitors However with recurrent genital infection, Jardiance has been appropriately discontinued. Orders: Orders Basic Metabolic Panel 6 Months R80.9 - Proteinuria, unspecified UA and rflx microscopic 6 Months R80.9 - Proteinuria, unspecified Creatinine Urine 6 Months R80.9 - Proteinuria, unspecified Total Protein Urine Random 6 Months R80.9 - Proteinuria, unspecified Coding Level of Care Code Est Pt Level 4 (99331) Diagnoses Microalbuminuria R80.9 Diabetic nephropathy associated with type 2 diabetes mellitus E11.21 Essential hypertension I10 Hypertension type: essential hypertension
--- OUTSIDE RECORDS SUMMARY | 2024-11-16 12:45 | XMS_ITS | Clinical Summary ---
Author Organization [facility] Facility Address [address] [place] [address], [place] [address] Care Team Providers Care Jewelry Sales Name Role Phone Anabela Jin MD Primary Care Provider [phone] Allergies Active Allergy Reactions Criticality Noted Date [...] Medicaid [place] Care Teams Jewelry Sales Relationship Specialty Start Date End Date Anabela Jin MD [address] [place], [place] PCP - General Internal Medicine 09/03/21
--- OUTSIDE RECORDS SUMMARY | 2024-11-16 12:45 | XMS_ITS | Clinical Summary ---
Author Organization [facility] Address [address] [facility] [address] [place] [address] Care Team Providers Care Stunner And Shackler Name Role Phone Unavailable Primary Care Provider [...] complete this topic Insurance [facility] STANDARD MEDICARE
--- OUTSIDE RECORDS SUMMARY | 2024-11-16 12:45 | XMS_ITS | Clinical Summary ---
Author Organization [facility] Address [address] [place] [address] Care Team Providers Care Outboard Motor Mechanic Name Role Phone Anabela Jin MD Primary Care Provider [phone] Allergies Active Allergy Reactions Criticality Noted Date [...] patient's age to complete this topic Insurance [facility] MEDICARE PART A & B Care Teams Outboard Motor Mechanic Relationship Specialty Start Date End Date Anabela Jin MD [address] [place] [id number] PCP - General Family Medicine 02/17/21
== END 2024-11-16 10:55 | disposition home or self-care (01) ==
LOC: HO.HKA 10:43
PROVIDERS: PCP Internal Medicine; Visit Provider Internal Medicine Hypertension Specialist
DX: R80.9 Proteinuria, unspecified (principal); E11.21 Type 2 diabetes mellitus with diabetic nephropathy; I10 Essential (primary) hypertension
CPT/HCPCS: 99214

== ENCOUNTER 2024-11-30 08:56 | Outpatient (REF) | payer MEDICARE, MEDICAID, SELFPAY ==
[2024-11-30 14:00] LABS: Appearance Urine Clear; Color Urine Yellow; Glucose Urine UA Negative (Negative); Leukocyte Esterase Urine Small (1+) (Negative); Nitrite Urine Negative (Negative); PH 5.5 (5.0-9.0); Specific Gravity - Urine 1.015 (1.005-1.025); UMIC TRIGGER UA YES; Urine Blood Trace (Negative); Urine Ketones Negative (Negative); Urine Protein Trace mg/dL (Neg-Trace)
[2024-11-30 14:21] LABS: Bacteria Urine None Seen (None Seen); Hyaline Casts Urine 0-2 /LPF (0-2); RBC Urine 0-2 /HPF (0-2); WBC Urine 0-5 /HPF (0-5)
--- OUTSIDE RECORDS SUMMARY | 2024-11-30 15:12 | XMS_ITS | Encounter Summary ---
Author Organization [facility] Address [address] [place] [address] Phone -x2013 Care Team Providers Care General Lithographic Worker Name Role Phone Anabela Jin MD Primary Care Provid er Reason for Visit * Reason Comments Medication Refill Encounter Details Date Type Department Care Team (Late st Contact Info) Description 02/25/2024 Refill [facility] [address] [place], [place] [id number] Jewell Estrada APRN [address] [place] [address] Medication Refill Social History Tobacco [...] documented as of this encounter Care Teams General Lithographic Worker Relationship Specialty Start Date End Date Anabela Jin MD [address] [facility] [address] [place], [place] [phone] PCP - General Internal Medicine 11/24/23 documented as of this encounter
--- OUTSIDE RECORDS SUMMARY | 2024-11-30 15:12 | XMS_ITS | Encounter Summary ---
Author Organization [facility] Address [address] [place] [address] Phone -x2013 Care Team Providers Care Meatcutter Name Role Phone Anabela Jin MD Primary Care Provid er Reason for Visit * Reason Comments Med Change Request Encounter Details Date Type Department Care Team (Late st Contact Info) Description 02/05/[address] [address] Jewell Estrada APRN [address] [place] [address] Med Change Request Social History [...] documented as of this encounter Care Teams Meatcutter Relationship Specialty Start Date End Date Anabela Jin MD [address] [place] [address] [place] [phone] PCP - General Internal Medicine 11/24/23 documented as of this encounter
--- OUTSIDE RECORDS SUMMARY | 2024-11-30 15:12 | XMS_ITS | Clinical Summary ---
Author Organization [facility] Address [address] [place] [address] Care Team Providers Care Ekg Monitor Tech Name Role Phone Anabela Jin MD Primary Care Provider [phone] Allergies Active Allergy Reactions Criticality Noted Date [...] Bone Density (Females,Ages 65 and older) 2019 COVID-19 Vaccine (3 - 2023-2 5 season) 2024 01/13/2021, 12/23/2020 Influenza Vaccine 02/25/2025 Hepatitis B Vaccines Aged Out No long er eligible based on patient's age to complete this topic Insurance [facility] MEDICARE PART A & B Care Teams Ekg Monitor Tech Relationship Specialty Start Date End Date Anabela Jin MD [address] [place] [address] PCP - General Family Medicine 02/17/21
--- OUTSIDE RECORDS SUMMARY | 2024-11-30 15:12 | XMS_ITS | Encounter Summary ---
Author Organization [facility] Address [address] [place] [address] Phone -x2013 Care Team Providers Care Clay Dry Press Operator Name Role Phone Anabela Jin MD Primary Care Provid er Reason for Visit * Reason Onset Date Comments Medication Problem 12/25/2023 dulaglutide 3 mg/0.5 mL PnIj Encounter Details Date Type Department Care Team (Late st Contact Info) Description 12/25/[address] [address] Anabela Jin MD [address] [place] [address] [place] [phone] Medication Problem (dulaglutide [...] 3 mg/0.5 mL PnIj Refill status: Preferred Language:Portuguese Caller was aware message would be routed [...] documented as of this encounter Care Teams Clay Dry Press Operator Relationship Specialty Start Date End Date Anabela Jin MD [address] [place] [address] [place] [phone] PCP - General Internal Medicine 11/24/23 documented as of this encounter
--- OUTSIDE RECORDS SUMMARY | 2024-11-30 15:12 | XMS_ITS | Encounter Summary ---
Author Organization [facility] Address [address] [place] [address] Phone -x2013 Care Team Providers Care Doorperson Name Role Phone Anabela Jin MD Primary Care Provid er Reason for Visit * Reason Onset Date Comments Medication Problem 12/29/2023 semaglutide ( OZEMPIC) 0.25 mg or 0.5 mg (2 mg/3 mL) pen injector Advice Only 12/29/2023 Encounter Details Date Type Department Care Team ([facility] st Contact Info) Description 12/29/2023 [place] [address] Anabela Jin MD [address] [place] [address] [place] [phone] Medication Problem (semaglutide [...] James RN - 12/29/2023 4:15 PM EDT #[id number] filipino interpretor Called back pt and relayed medication [...] she didn't understand the previous call with incendiary powder mixer states line was cutting out and requesting a callback to get clarification on Rx if pt has to take .25 or 0.5mg and for how long please callback to advise Specify Name of Medication: semaglutide (OZEMPIC) 0.25 mg or 0.5 mg (2 mg/3 mL) pen injector Refill status:0 Preferred Language:filipino Caller was aware message would be routed to PCP team for review and F/U. Caller made aware of form policy. Caller verbalized understating and had no further question at this time. * Telephone Encounter - Priscilla Wilson - 12/29/2023 9:14 AM EDT Reason for call:states she didn't understand the previous call with incendiary powder mixer states line was cutting out and requesting a callback to get clarification on Rx if pt has to take .25 and for how longplease callback to advise Medication Issue/Schedule Appointment F/FU/Authorization Request: Specify Name of Medication:semaglutide (OZEMPIC) 0.25 mg or 0.5 mg (2 mg/3 mL) pen injector Refill status:0 Preferred Language:filipino Caller was aware message would be routed [...] documented as of this encounter Care Teams Doorperson Relationship Specialty Start Date End Date Anabela Jin MD [address] [place] [address] [place] [phone] PCP - General Internal Medicine 11/24/23 documented as of this encounter
--- OUTSIDE RECORDS SUMMARY | 2024-11-30 15:12 | XMS_ITS | Clinical Summary ---
Author Organization [facility] Address [address] [place] [address] Phone Care Team Providers Care Materials Management Supervisor Name Role Phone Anabela Jin MD [...] Comment Performing Lab: ?Site ID: [id number] ?Name: [facility] ?Address: [address] [place] [id number] ?Director: Robbin Monroy M.D. Jewell Estrada APRN URINE ORDERABLES Final Result [facility] [address] * (ABNORMAL) Lipid panel with reflex to direct LDL (Q) (12/18/2023 11:43 AM EDT) [facility] Cholesterol, Total 284(H) <200 mg/dL [facility] [...] LDL-C. Wade VARGAS et al. MAXIMILIANO. 2013;310(19): 8582-3175 (http://education.[employer]/faq/XQM656) Chol/HDL Ratio 5.7(H) <5.0 (calc) [facility] [...] Comment Performing Lab: ?Site ID: [id number] ?Name: [facility] ?Address: [address] [place] [id number] ?Director: Robbin Monroy M.D. Jewell Estrada APRN LAB BLOOD ORDERABLES Final Re sult [facility] [address] [place] [address] * POCT glycosylated hemoglobin (HgbA1c), total (62475) (12/18/2023 9:13 AM EDT) Hemoglobin A1C, POC 11.3 4.0 - 6.0 % [facility] Test Lot Number [id number] [facility] Test Lot Exp Date 09/08/25 Date Format: MM/DD/YYYY [facility] 12/18/2023 9:13 AM EDT Jewell Estrada APRN POINT OF CARE TEST ORDERABLES Final Result Performing Organization Address [facility] Co de Phone Number [facility] from Last 3 Months or Most Recently Relevant to Health Maintenance Insurance MEDICARE [id number] MEDICAID MEDICARE [id number] MEDICAID MEDICAID [place] [facility] [facility] MEDICARE [id number] MEDICAID Care Teams Materials Management Supervisor Relationship Specialty Start Date End Date Anabela Jin MD [address] [place] [address] [place] [phone] PCP - General Internal Medicine 11/24/23
--- OUTSIDE RECORDS SUMMARY | 2024-11-30 15:12 | XMS_ITS | Clinical Summary ---
Author Organization [facility] Address [address] [place] [address], [place] [address] Care Team Providers Care Domestic Travel Consultant Name Role Phone Anabela Jin MD Primary Care Provider [phone] Allergies Active Allergy Reactions Criticality Noted Date [...] Last Done Comments Breast Cancer Screening 1954 Colorectal Cancer Screening: Annual FOBT 2003 Colorectal Cancer Screening: Colonoscopy 2003 Colorectal Cancer Screening: Sigmoidoscopy 2003 Diabetes: Ophthalmology Exam 08/27/2020 Diabetes: Pedal Pulse Checked 08/27/2020 Diabetes: Sensory Foot Exam 08/27/2020 Diabetes: Visual Foot Exam 08/27/2020 Diabetes: Hemoglobin A1C 03/19/2024 12/18/2023 Influenza Vaccine (Season Ended) 2025 04/04/2023, 06/10/2019, 05/26/2018, Additional history exists Pneumococcal Vaccine: 50+ Years Completed 12/07/2021, 11/15/2020, 11/23/2015 Pneumococcal Vaccine: Peds (0 to 5 Years) and At-Risk Patients (6 to 49 Years) Discontinued 12/07/2021, 11/15/2020, 11/23/2015 Hepatitis B Vaccine Aged Out No longe r eligible based on patient's age to complete this topic Insurance Medicare Medicaid [place] Medicare Medicaid [place] Care Teams Domestic Travel Consultant Relationship Specialty Start Date End Date Anabela Jin MD [address] [facility] [address] [place] [address] PCP - General Internal Medicine 09/03/21
--- OUTSIDE RECORDS SUMMARY | 2024-11-30 15:12 | XMS_ITS | Encounter Summary ---
Author Organization [facility] Address [address] [place] [id number] Phone -x2013 Care Team Providers Care Animal Nutrition Teacher Name Role Phone Anabela Jin MD Primary Care Provid er Reason for Visit * Reason Comments Med Change Request Encounter Details Date Type Department Care Team (Late st Contact Info) Description 12/25/2023 [facility] [address] [place], [place] [id number] Jewell Estrada APRN [address] [place] [address] Med Change Request Social History [...] documented as of this encounter Care Teams Animal Nutrition Teacher Relationship Specialty Start Date End Date Anabela Jin MD [address] [place] [address] [place] [phone] PCP - General Internal Medicine 11/24/23 documented as of this encounter
--- OUTSIDE RECORDS SUMMARY | 2024-11-30 15:12 | XMS_ITS | Encounter Summary ---
Author Organization [facility] Address [address] [place] [address] Phone -x2013 Care Team Providers Care Automatic Lathe Setter Name Role Phone Anabela Jin MD Primary Care Provid er Reason for Visit * Reason Comments Med Change Request Encounter Details Date Type Department Care Team (Late st Contact Info) Description 01/27/2024 [facility] [address] [place], [place] [id number] Jewell Estrada APRN [address] [place] [address] Med Change Request Social History [...] documented as of this encounter Care Teams Automatic Lathe Setter Relationship Specialty Start Date End Date Anabela Jin MD [address] [place], [place] [phone] PCP - General Internal Medicine 11/24/23 documented as of this encounter
== END 2024-11-30 08:57 | disposition home or self-care (01) ==
LOC: HO.LNP 08:56
PROVIDERS: PCP Internal Medicine; Visit Provider Physician Assistant
DX: R30.0 Dysuria (principal); K21.9 Gastro-esophageal reflux disease without esophagitis; E11.9 Type 2 diabetes mellitus without complications
CPT/HCPCS: 81001; 81003; 82948; 87086; 87147; 99212

== ENCOUNTER 2024-11-30 08:56 | Outpatient (AMB) | payer MEDICARE, MEDICAID, SELFPAY ==
--- NOTE | 2024-11-30 09:13 | MHC.OFFWIV ---
Intake Vital Signs 11/30/24 09:14 Weight 153 lb BP 120/76 Blood Pressure Location Rt brachial Position Sitting Pulse 68 Pulse Source Pulse Oximeter Pulse Oximetry (%) 98 Oxygen Delivery Method Room Air Intake Visit Reasons: EP severe abdominal pain Intake Note: Patient here for severe abdominal pain that has been present for over 1yr. Patient Tobacco Use Status: Never used Tobacco Allergies lisinopril Allergy (Severe, Verified 11/30/24 09:15) Swelling metformin Allergy (Intermediate, Verified 11/30/24 09:15) Intolerance, chest pain, high BP, diarrhea pantoprazole Allergy (Intermediate, Verified 11/30/24 09:15) rash quetiapine Allergy (Intermediate, Verified 11/30/24 09:15) chest pain orange juice Allergy (Intermediate, Uncoded 11/30/24 09:15) gerd Do you need a note to return to daycare/school/sports/work: No HPI HPI Comments History of Present Illness Details This is a 69-year-old Thai-speaking female with a past medical history of insulin-dependent diabetes, aortic stenosis, hypertension, cholecystectomy and hyperlipidemia presenting with her daughter for evaluation of abdominal pain that she has had for the past 1 year and dysuria that she has had for the past 2 weeks. The patient's daughter states that she does not check the patient's blood glucose daily though she is insulin-dependent. Patient has been burping with increased frequency accompanied with nausea. The patient's daughter denies any history of fevers, chills, chest pain, cough, shortness of breath, nausea, vomiting and is unaware of hematuria, urinary frequency or vaginal discharge. Patient has not taken any medication other than her previously prescribed medications. [facility] Medical History (Updated 11/30/24 @ 10:05 by Jana Rjoas PA-C) Dysuria Urinary frequency Aortic stenosis Uncontrolled type 2 diabetes mellitus with hyperglycemia, with long-term current use of insulin Shortness of breath Chest pain Fissure in skin of foot Impacted cerumen of left ear Dyspepsia Cyst of skin Left shoulder pain Diabetes mellitus Hospital discharge follow-up Medicare annual wellness visit, subsequent Cellulitis of left leg Dementia Retinitis pigmentosa of both eyes GERD (gastroesophageal reflux disease) Obesity (BMI 30-39.9) Vitamin D deficiency Dyslipidemia Hypertension Diabetic polyneuropathy associated with type 2 diabetes mellitus Diabetic nephropathy associated with type 2 diabetes mellitus Diabetes type 2, uncontrolled Surgical History History of esophagogastroduodenoscopy (EGD) H/O colonoscopy Hx of cholecystectomy Hx of tubal ligation Hx of hernia repair Family History Father No problems noted. Mother Heart disease HTN (hypertension) Sister Pre-diabetes Brother Leukemia Son In good health Daughter In good health Daughter In good health Social History Household Members: Family Housing: Apartment Alcohol intake: never Patient Tobacco Use Status: Never used Tobacco e-Cigarette/Vaping Use: Never Used Second Hand Smoke Exposure: No service: No Current occupational status: disabled Cognitive needs: No Hearing needs: No Vision needs: No Review of Systems Const Unobtainable due to mental status Physical Exam Vital Signs: Last Vital Signs Pulse 68 11/30/24 09:14 BP 120/76 11/30/24 09:14 Pulse Ox 98 11/30/24 09:14 Oxygen Delivery Method Room Air 11/30/24 09:14 Const General: cooperative, healthy appearing, comfortable, no acute distress, well developed, alert, awake and Physically active Nutritional Appearance: average body habitus Orientation/consciousness: patient oriented x3 Limitations: other limitations (patient non.verbal during interview with cellophane tester present) Resp Effort & Inspection: normal respiratory effort, no audible wheezes, no cough, no nasal flaring and not tachypneic Auscultation: clear to auscultation bilaterally Cardio Rate: regular rate Rhythm: regular rhythm Heart sounds: Murmur heart sound present GI Palpation (GI): Soft to palpation and Tenderness to palpation present (GI) suprapubicly and other (no flank tenderness bilaterally); with no rebound tenderness Auscultation: normal bowel sounds General: Yes Bimanual renal exam normal bilaterally and No bladder normal to palpation (suprapubic tenderness) Bimanual exam- vagina & uterus: No bladder normal to palpation (suprapubic tenderness) Skin General skin exam: no rashes or lesions noted Neuro General: patient oriented x3 Psych Appearance: grossly normal Mental Status: mental status grossly normal Insight: Good insight present (Psych) Judgement: Good judgement present (Psych) Results AMB Random Glucose (hemocue) AMB Random Glucose (hemocue) 104 mg/dL Last Edit by ZULEMA Villanueva on 11/30/24 09:59 AMB Urinalysis, Automated UA Leukoctes 0 Shad/uL Last Edit by ZULEMA Villanueva on 11/30/24 10:00 UA Nitrite Negative Last Edit by Miguelito Neville [facility] on 11/30/24 10:00 UA Urobilinogen 0.2 mg/dL Last Edit by Miguelito Neville [facility] on 11/30/24 10:00 UA Protein 0 mg/dL Last Edit by Miguelito Neville [facility] on 11/30/24 10:00 UA pH 6.0 Last Edit by Miguelito Neville [facility] on 11/30/24 10:00 UA Blood 10 Ermias/uL Last Edit by Miguelito Neville [facility] on 11/30/24 10:00 UA Specific [place] 1.015 Last Edit by Miguelito Neville [facility] on 11/30/24 10:00 UA Ketone Negative Last Edit by Miguelito Neville [facility] on 11/30/24 10:00 UA Bilirubin 0 mg/dL Last Edit by Miguelito Neville [facility] on 11/30/24 10:00 UA Glucose 0 mg/dL Last Edit by Miguelito Neville [facility] on 11/30/24 10:00 Results Reviewed Results Reviewed: Blood glucose 140mg/dL, urinalysis not indicative of acute UTI. Assessment & Plan Assessment & Plan (1) Dysuria: Comment: no evidence of acute UTI on urinalysis; urine culture pending. Code(s): R30.0 - Dysuria Plan: Increase clear fluids daily, control blood glucose with diet and insulin; check BG three times daily with meals. (2) GERD (gastroesophageal reflux disease): Comment: Patient is prescribed pantoprazole daily; will add carafate to be used daily prior to meals. Daughter is unaware of an active Dexilant prescription. Code(s): K21.9 - Gastro-esophageal reflux disease without esophagitis Qualifiers: Esophagitis presence: esophagitis presence not specified Qualified Code(s): K21.9 - Gastro-esophageal reflux disease without esophagitis Plan: Carafate four times daily with meals in addition to previously prescribed pantoprazole. Orders: Orders Urine Culture Today R30.0 - Dysuria AMB Urinalysis Automated Today Z13.9 - Encounter for screening, unspecified UA w Microscopic Today R30.0 - Dysuria AMB Random Glucose (hemocue) Today Z13.9 - Encounter for screening, unspecified Medications: New sucralfate (Carafate) 10 mL PO QIDACHS 1,000 mL 0RF Coding Level of Care Code Est Pt Level 4 (48514) Diagnoses Dysuria R30.0 Gastroesophageal reflux disease, unspecified whether esophagitis present K21.9 Esophagitis presence: esophagitis presence not specified Time Spent (min) 30
[2024-11-30 09:14] VITALS: BP 120/76; PULSE 68; O2SAT 98
== END 2024-11-30 10:45 | disposition home or self-care (01) ==
PROVIDERS: PCP Internal Medicine; Visit Provider Physician Assistant
DX: R30.0 Dysuria (principal); K21.9 Gastro-esophageal reflux disease without esophagitis; Z13.9 Encounter for screening, unspecified

== ENCOUNTER 2024-12-12 19:42 | Emergency (ER) | payer MEDICARE, MEDICAID, SELFPAY ==
--- NOTE | ~2024-12-12 | XR_ITS ---
CLINICAL HISTORY: cough, fever chest pain 2 view chest x-ray Comparison: DX/SR - XR CHEST 2V - 02/04/24 11:37 EDT Findings: Small bilateral pleural effusions. Small patchy opacities at both medial lung bases. Heart size at the upper limits. No acute fracture. IMPRESSION: Small bibasilar opacities and small effusions are noted. Infectious etiology possible, especially given the history of fever and cough. Recommend follow-up to clearing. This document has been electronically signed by: Bernie Goldsmith MD on 12/12/2024 21:19:01
[2024-12-12 19:56] VITALS: BP 107/68; PULSE 119; RESP 16; TEMP 37.3; O2SAT 96; BMI 27.7
--- NOTE | 2024-12-12 19:56 | ED_ITS ---
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 Per the patient's daughter, the patient has had increasing leg swelling for about 1 week. Increased leg swelling for the last 3 or 4 days and fever starting today as high as 100.3. The patient does have a low sodium diet and reportedly has not been increased salt or fluid intake. The sit in a dependent position for a day. She is able to ambulate but reports his shortness of breath with exertion over the last few days. Denies any sick contacts. She reports her cough is productive of yellow sputum No other complaints or concerns at this time Related Data Home Medications ?Medication ?Instructions ?Recorded ?Confirmed chlorthalidone 25 mg tablet 25 mg PO DAILY 01/23/24 11/16/24 aspirin 81 mg tablet,delayed 81 mg PO DAILY 01/28/24 11/16/24 release (Adult Low Dose Aspirin) Previous Rx's ?Medication ?Instructions ?Recorded 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 meter (FreeStyle #1 ea 11/15/20 Lite Meter kit) lancets 28 gauge (FreeStyle #100 ea 11/15/20 Lancets) wheelchair #1 ea 11/15/20 adhesive tape 1 X 10 yard #1 ea 08/09/21 (Band-Aid Paper Tape) gauze bandage 4 X 4 (Band-Aid #1,200 ea 08/09/21 Gauze Pads) blood sugar diagnostic (FreeStyle #100 ea 07/12/22 Lite Strips) personal wipes #200 ea 10/25/22 cholecalciferol (vitamin D3) 25 25 mcg PO DAILY #90 caps 03/04/23 mcg (1,000 unit) capsule acetaminophen 325 mg tablet 325 mg PO QID PRN pain #45 tabs 03/16/23 (Tylenol) glipizide 10 mg tablet, extended 10 mg PO DAILY 90 days #90 tabs 03/17/23 release 24 hr loperamide 2 mg capsule (Imodium 2 mg PO BID loose stool #60 caps 05/14/23 A-D) tramadol 50 mg tablet 50 mg PO BID PRN pain 30 days #60 06/17/23 tabs pen needle, diabetic 31 gauge x #100 ea 02/04/24/ (Comfort EZ Pen [place]) sennosides 8.6 mg tablet (Senna 8.6 mg PO BEDTIME #60 tabs 02/13/24 Laxative) dicyclomine 20 mg tablet 20 mg PO QID 30 days #120 tabs 02/20/24 metoclopramide HCl 10 mg tablet 10 mg PO QIDACHS #120 tabs 02/20/24 (Reglan) commode #1 ea 03/15/24 Shower Chair #1 ea 04/28/24 walker with seat #1 ea 04/28/24 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,sample builder,cont #1 ea 05/04/24 (FreeStyle Stephon 3 Landing) glucose 4 gram chewable tablet 16 g (4 x 4 gram) PO Q15M PRN 05/04/24 (Dex4 Glucose) hypoglycemia #60 tabs amlodipine 10 mg tablet 10 mg PO DAILY 90 days #90 tabs 05/26/24 simethicone 180 mg capsule (Gas 180 mg PO BID PRN abdominal 05/26/24 Relief (simethicone)) distention 90 days #180 caps 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 sensor (FreeStyle #2 ea 05/27/24 Stephon 3 Sensor device) 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 sensor (FreeStyle #2 ea 06/10/24 Stephon 3 Plus Sensor device) ezetimibe 10 mg tablet 10 mg PO DAILY 90 days #90 tabs 06/15/24 ferrous sulfate 325 mg (65 mg 325 mg PO DAILY 90 days #90 tabs 07/04/24 iron) tablet lactulose 10 gram/15 mL oral 10 g (15 mL) PO BEDTIME PRN 07/19/24 solution constipation 30 days #237 mL atorvastatin 40 mg tablet 40 mg PO DAILY 90 days #90 tabs 08/16/24 acetaminophen 500 mg capsule 500 mg PO Q6H PRN fever #20 caps 09/08/24 insulin glargine 100 unit/mL (3 10 unit (0.1 mL) subcut QPM 90 10/10/24 mL) subcutaneous pen (Lantus days #9 mL Solostar U-100 Insulin) dulaglutide 3 mg/0.5 mL 3 mg (0.5 mL) subcut QWEEK #2 mL 10/25/24 subcutaneous pen injector (Trulicity) Dexilant 60 mg capsule, delayed 60 mg PO DAILY #30 caps 11/03/24 release (dexlansoprazole) omega-3 fatty acids-fish oil 300 1 cap PO BID #60 caps 11/24/24 mg-1,000 mg capsule sucralfate 100 mg/mL oral 10 ml PO QIDACHS #1,000 mL 11/30/24 suspension (Carafate) cephalexin 500 mg capsule 500 mg PO BID #10 caps 12/01/24 azithromycin 250 mg tablet See Rx Instructions PO .COMPLEX #6 12/13/24 tabs cefuroxime axetil 500 mg tablet 500 mg PO Q12H #14 tabs 12/13/24 furosemide 20 mg tablet (Lasix) 20 mg PO DAILY #5 tabs 12/13/24 Allergies Allergy/AdvReac Type Severity Reaction Status Date / Time lisinopril Allergy Severe Swelling Verified 12/12/24 20:02 metformin Allergy Intermediate Intolerance, Verified 12/12/24 20:02 chest pain, high BP, diarrhea pantoprazole Allergy Intermediate rash Verified 12/12/24 20:02 quetiapine Allergy Intermediate chest pain Verified 12/12/24 20:02 orange juice Allergy Intermediate gerd Uncoded 12/12/24 20:02 Review of Systems 2 Constitutional: Constitutional: Reports body ache(s), Reports chills, Reports fever(s) and Denies headache(s) Eyes: Eyes: Denies blurry vision ENT: Denies vertigo, Denies dizziness and Denies headache(s) Cardiovascular: Cardiovascular: Denies chest pain, Reports leg edema and Reports dyspnea Respiratory: Respiratory: Reports change in phlegm color, Reports chest congestion, Reports cough and Reports dyspnea Gastrointestinal: Gastrointestinal: Denies abdominal pain, Denies nausea and Denies vomiting Musculoskeletal: Musculoskeletal: Denies back pain Integumentary/Breasts: Skin/Breast: Denies rash Neurologic: Denies vertigo, Denies dizziness and Denies headache(s) Psychiatric: Psychiatric: Denies anxiety PMFSH Past Medical History Medical History (Updated 12/13/24 @ 02:01 by Andreas Marx) Dysuria Urinary frequency Aortic stenosis Uncontrolled type 2 diabetes mellitus with hyperglycemia, with long-term current use of insulin Shortness of breath Chest pain Fissure in skin of foot Impacted cerumen of left ear Dyspepsia Cyst of skin Left shoulder pain Diabetes mellitus Hospital discharge follow-up Medicare annual wellness visit, subsequent Cellulitis of left leg Dementia Retinitis pigmentosa of both eyes GERD (gastroesophageal reflux disease) Obesity (BMI 30-39.9) Vitamin D deficiency Dyslipidemia Hypertension Diabetic polyneuropathy associated with type 2 diabetes mellitus Diabetic nephropathy associated with type 2 diabetes mellitus Diabetes type 2, uncontrolled Surgical History History of esophagogastroduodenoscopy (EGD) H/O colonoscopy Hx of cholecystectomy Hx of tubal ligation Hx of hernia repair Family History Family History Father No problems noted. Mother Heart disease HTN (hypertension) Sister Pre-diabetes Brother Leukemia Son In good health Daughter In good health Daughter In good health Social History Social History Household Members: Family Housing: Apartment Alcohol intake: never Patient Tobacco Use Status: Never used Tobacco e-Cigarette/Vaping Use: Never Used Second Hand Smoke Exposure: No Advance Directives: No Advance Directives Information Provided: Yes Do you have a plan to hurt others: No Plan service: No Current occupational status: disabled Cognitive needs: No Hearing needs: No Vision needs: No Physical Exam ED Vital Signs: Vital Signs - 24 hr 12/12/24 19:56 12/12/24 22:40 12/13/24 00:33 Temperature 99.2 F Pulse Rate 119 H 100 102 H Respiratory Rate 16 16 18 Blood Pressure 107/68 136/74 137/80 Pulse Oximetry 96 93 93 Oxygen Delivery Method Room Air Room Air 12/13/24 02:37 Temperature 98.6 F Pulse Rate 102 H Respiratory Rate 18 Blood Pressure 137/80 Pulse Oximetry 93 Oxygen Delivery Method Room Air BMI result Body Mass Index 27.7 Const General: healthy appearing, comfortable, no acute distress, alert and awake Nutritional Appearance: well nourished Orientation/consciousness: patient oriented x3 HENMT Head: Yes normocephalic and Yes atraumatic Eyes Eyelids: Yes eyelids normal Conjunctivae: conjunctivae normal Sclerae: sclerae normal Corneas: corneas normal Pupils: Equal, round and reactive pupils present EOM: EOMs intact bilaterally Neck Neck: Yes full ROM Resp Effort & Inspection: normal respiratory effort, able to speak in complete sentences, no audible wheezes and not labored Auscultation: rhonchi Cardio Other: Extremities bilaterally. No erythema, no calf tenderness Rate: regular rate Rhythm: regular rhythm GI Inspection: No distended Palpation (GI): Soft to palpation, not firm, nontender, no guarding and not rigid Skin General skin exam: elasticity normal Neuro General: patient oriented x3 Cranial nerves: Yes Equal, round and reactive pupils present and Yes Bilaterally intact EOM present Cognition (Neuro): normal cognition Extrem Other: Moving all extremities well without any obvious deformities Course Course Course Narrative: This is a Rapid Medical Examination (RME) performed by Otf Carballo PA-C in triage. Full HPI, ROS, assessment and treatment plan per primary provider in the Main ED. Hx: 69 yo F hx DM, HTN, HLD, GERD, anemia, dementia here w/ chest pain, productive cough, fever (TMAX 100.F), and LE swelling x3 days, worsening last night. PE/vitals: nonpitting edema to b/l LEs. Plan: labs, cxr, ekg Medical Decision Making Medical Decision Making [facility] Narrative: 69-year-old female past medical history as above presents for evaluation of respiratory symptoms including cough, shortness of breath, fever as well as leg swelling. She appears to have mild congestive heart failure as well as x-ray findings consistent with early pneumonia. Her oxygen saturation is 95% on room air. One hundred two, she is afebrile, she is not tachypneic she is normotensive. She has no significant leukocytosis, she is not admitted to viral swabs are negative. She has a very slightly elevated BNP 224 with a negative troponin she is a known diabetic with a random glucose of 226 0 otherwise unremarkable. We will treat her dyspnea as community-acquired pneumonia and also her leg swelling with Lasix. Differential Diagnosis Differential Diagnoses: The differential diagnosis associated with the presentation includes Community-acquired pneumonia Dependent edema Viral syndrome Colitis CHF PE less likely Admission/Observation Consideration of admission/observation: Escalation of care including admission/observation considered Lab Data [facility] Lab Attestation statement: I reviewed the patient's lab results. As above 12/12/24 20:21 12/12/24 20:21 Labs: Lab Results 12/12/24 12/12/24 Range/Units 20:21 23:05 WBC 7.9 (4.8-10.8) X10*3/uL RBC 4.15 L (4.20-5.50) X10*6/uL Hgb 10.5 L (12.0-16.0) g/dl Hct 32.4 L (37.0-47.0) % MCV 78.1 L (80.0-98.0) fL MCH 25.3 L (27.0-33.0) pg MCHC 32.4 (31.0-35.0) g/dl RDW 14.3 (11.0-16.0) % Plt Count 139 L (160-400) X10*3/uL MPV 10.9 (9.4-12.3) fL Immature Gran % (Auto) 0.3 (0.0-0.4) % Neut % (Auto) 75.0 H (45-73) % Lymph % (Auto) 13.6 L (20-40) % [place] % (Auto) 8.3 (2-11) % Eos % (Auto) 2.5 (0-4) % Baso % (Auto) 0.3 (0-2) % Lymph # (Auto) 1.1 L (1.2-4.9) X10*3/uL [place] # (Auto) 0.7 (0.1-1.2) X10*3/uL Eos # (Auto) 0.2 (0.0-0.4) X10*3/uL Baso # (Auto) 0.0 (0.0-0.2) X10*3/uL Abs Immat Gran (auto) 0.02 (0.00-0.03) X10*3/uL Absolute Neuts (auto) 5.9 (2.0-8.3) x10*3/uL Absolute Nucleated RBC 0.000 (0.0-0.012) X10*3/uL Nucleated RBC % (auto) 0.0 (0.0-0.2) /100WBC Sodium 138 (135-145) mmol/L Potassium 3.8 (3.3-5.1) mmol/L Chloride 107 (96-108) mmol/L Carbon Dioxide 23 (22-29) mmol/L Anion Gap 12 (12-20) BUN 13 (9-16) mg/dL Creatinine 0.71 (0.5-1.4) mg/dL Estim Creat Clear Calc 72.3 Estimated GFR > 60 Random Glucose 226 H (60-115) mg/dL Calcium 9.0 D (8.4-10.2) mg/dL Magnesium 1.9 (1.6-2.6) mg/dL Total Bilirubin 0.4 (0.0-1.0) mg/dL AST 17 (5-31) U/L ALT 14 (0-31) U/L Alkaline Phosphatase 57 (39-117) U/L Troponin I High Sens 9.7 (<3.5-17.0) ng/L B-Natriuretic Peptide 124 H (<100) pg/mL Total Protein 7.1 (6.5-8.0) g/dL Albumin 3.9 (3.5-5.0) g/dL Urine Color Yellow Urine Appearance Clear Urine pH 6.5 (5.0-9.0) Ur Specific [place] <= 1.005 (1.005-1.025) Urine Protein Negative (Neg-Trace) mg/dL Urine Glucose (UA) Negative (Negative) mg/dL Urine Ketones Negative (Negative) mg/dL Urine Blood Trace H (Negative) Urine Nitrite Negative (Negative) Ur Leukocyte Esterase Negative (Negative) Urine RBC 0-2 (0-2) /HPF Urine WBC 0-5 (0-5) /HPF Ur Squamous Epith Cells 0-2 (0-2) /HPF Urine Bacteria None Seen (None Seen) Hyaline Casts 0-2 (0-2) /LPF Influenza Type A (PCR) NEGATIVE (Negative) Influenza Type B (PCR) NEGATIVE (Negative) RSV RNA Qual (PCR) NEGATIVE (Negative) SARS-CoV-2 RNA (RT-PCR) NEGATIVE (Negative) Independent Interpretation I performed an independent interpretation of an: EKG (Sinus tachycardia rate of [address] segment elevation [place]. Nondiagnostic EKG) and Plain X- Ray Interpretation: Agree with Radiology interpretation Radiology Impression Discussion of test interpretation with radiology: I have reviewed the radiologist's reading. Radiologist Impression: Findings: Small bilateral pleural effusions. Small patchy opacities at both medial lung bases. Heart size at the upper limits. No acute fracture. IMPRESSION: Small bibasilar opacities and small effusions are noted. Infectious etiology possible, especially given the history of fever and cough. Recommend follow-up to clearing. This document has been electronically signed by: Bernie Goldsmith MD on 12/12/2024 21:19:01 Discharge Plan Discharge Clinical Impression: Community acquired pneumonia, Leg edema Patient Disposition: Home, Self-Care Instructions: Community Acquired Pneumonia (ED), Community Acquired Pneumonia (DC), Leg Edema (ED) Additional Instructions: Chest x-ray showed possibly mild pneumonia and some fluid retention Your blood work today was reassuring Take the antibiotics As prescribed. Take Lasix 20 mg daily for the next 5 days to help with leg swelling I recommend decreasing salt and fluid intake. Elevate your legs above your heart while resting You may benefit from compression stockings as well Prescriptions: New azithromycin 250 mg tablet See Rx Instructions .ROUTE .COMPLEX Qty: 6 0RF Rx Instructions: For 250 mg dose pack: take 500 mg today (day 1), then 250 mg for 4 days (days 2-5) furosemide [Lasix] 20 mg tablet 20 mg PO DAILY Qty: 5 0RF cefuroxime axetil 500 mg tablet 500 mg PO Q12H Qty: 14 0RF No Action (DME) lancets [FreeStyle Lancets] 28 gauge misc See Rx Instructions .MEDSUPPLY Qty: 100 7RF Rx Instructions: 3 times a day (DME) 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 meter [FreeStyle Lite Meter] Kit See Rx Instructions miscellaneous .MEDSUPPLY Qty: 1 0RF Rx Instructions: 3 times a day (DME) FreeStyle Lite Strips Strip See Rx Instructions .MEDSUPPLY Qty: 100 11RF Rx Instructions: 3 times a day (DME) personal wipes See Rx Instructions .Route .MEDSUPPLY Qty: 200 6RF Rx Instructions: As directed cholecalciferol (vitamin D3) 25 mcg (1,000 unit) capsule 25 mcg PO DAILY Qty: 90 0RF acetaminophen [Tylenol] 325 mg tablet 325 mg PO QID PRN (Reason: pain) Qty: 45 0RF glipizide 10 mg tablet extended release 24hr 10 mg PO DAILY 90 Days Qty: 90 1RF tramadol 50 mg tablet 50 mg PO BID PRN (Reason: pain) 30 Days Qty: 60 0RF (DME) commode Kit See Rx Instructions .Route Qty: 1 0RF Rx Instructions: As directed (DME) walker with seat See Rx Instructions .Route .MEDSUPPLY Qty: 1 0RF Rx Instructions: As directed (DME) Shower Chair Misc See Rx Instructions .Route Qty: 1 0RF Rx Instructions: As directed simethicone [Gas Relief (simethicone)] 180 mg capsule 180 mg PO BID PRN (Reason: abdominal distention) 90 Days Qty: 180 1RF amlodipine 10 mg tablet 10 mg PO DAILY 90 Days Qty: 90 1RF (DME) FreeStyle Stephon 3 Sensor Device See Rx Instructions .ROUTE .MEDSUPPLY Qty: 2 11RF Rx Instructions: apply new sensor every 14 days as directed (DME) FreeStyle Stephon 3 Plus Sensor Device See Rx Instructions .ROUTE .MEDSUPPLY Qty: 2 11RF Rx Instructions: Apply 1 new sensor every 14 days as directed to monitor blood glucose continuously. ferrous sulfate 325 mg (65 mg iron) tablet 325 mg PO DAILY 90 Days Qty: 90 1RF lactulose 10 gram/15 mL solution 10 g PO BEDTIME PRN (Reason: constipation) 30 Days Qty: 237 1RF atorvastatin 40 mg tablet 40 mg PO DAILY 90 Days Qty: 90 1RF insulin glargine [Lantus Solostar U-100 Insulin] 100 unit/mL (3 mL) insulin pen 10 unit subcut QPM 90 Days Qty: 9 1RF Trulicity 3 mg/0.5 mL pen injector 3 mg subcut QWEEK Qty: 2 3RF dexlansoprazole [Dexilant] 60 mg capsule,biphase delayed releas 60 mg PO DAILY Qty: 30 6RF omega-3 fatty acids-fish oil 300-1,000 mg capsule 1 cap PO BID Qty: 60 2RF cephalexin 500 mg capsule 500 mg PO BID Qty: 10 0RF (DME) wheelchair See Rx Instructions .Route .MEDSUPPLY Qty: 1 0RF Rx Instructions: As directed (DME) gauze bandage [Band-Aid Gauze Pads] 4 X 4 bandage See Rx Instructions .Route Qty: 1200 0RF Rx Instructions: As directed (DME) adhesive tape [Band-Aid Paper Tape] 1 X 10 -yard tape See Rx Instructions .Route Qty: 1 0RF Rx Instructions: As directed (DME) pen needle, diabetic [Comfort EZ Pen [place]] 31 gauge x 5/16 needle See Rx Instructions .Route Qty: 100 3RF Rx Instructions: Use 1 pen needle once a day sennosides [Senna Laxative] 8.6 mg tablet 8.6 mg PO BEDTIME Qty: 60 6RF (DME) FreeStyle Stephon 3 Landing Misc See Rx Instructions .ROUTE .MEDSUPPLY Qty: 1 0RF Rx Instructions: as directed glucose [Dex4 Glucose] 4 gram tablet,chewable 16 g PO Q15M PRN (Reason: hypoglycemia) Qty: 60 1RF Rx Instructions: until symptoms of low blood sugar are controlled ezetimibe 10 mg tablet 10 mg PO DAILY 90 Days Qty: 90 1RF sucralfate [Carafate] 100 mg/mL suspension 10 ml PO QIDACHS Qty: 1000 0RF loperamide [Imodium A-D] 2 mg capsule 2 mg PO BID Qty: 60 6RF chlorthalidone 25 mg tablet 25 mg PO DAILY aspirin [Adult Low Dose Aspirin] 81 mg tablet,delayed release (DR/EC) 81 mg PO DAILY metoclopramide HCl [Reglan] 10 mg tablet 10 mg PO QIDACHS Qty: 120 6RF Rx Instructions: dispense 10mg dose not 5mg dicyclomine 20 mg tablet 20 mg PO QID 30 Days Qty: 120 6RF acetaminophen 500 mg capsule 500 mg PO Q6H PRN (Reason: fever) Qty: 20 0RF Interventions: ED Discharge Assessment Last Done: 12/13/24 02:37 Discharge Date/Time: 12/13/24 02:41 Print Language: Wolof
--- NOTE | 2024-12-12 19:59 | ECG_ITS ---
Test Reason : CP Blood Pressure : */* mmHG Vent. Rate : 115 BPM Atrial Rate : 115 BPM P-R Int : 156 ms QRS Dur : 66 ms QT Int : 316 ms P-R-T Axes : 31 18 14 degrees QTcB Int : 437 ms Sinus tachycardia Nonspecific T wave abnormality Abnormal ECG When compared with ECG of 28-Aug-2017 07:13, Borderline criteria for Inferior infarct are no longer Present ST no longer elevated in Lateral leads Referred By: La Nena Carballo Electronically Signed By: Isauro Toure
[2024-12-12 20:28] LABS: MANUAL DIFF FLAG NO
[2024-12-12 20:31] LABS: Basophils Percent Auto 0.3 % (0-2); Eosinophils Absolute Auto 0.2 X10*3/uL (0.0-0.4); Eosinophils Percent Auto 2.5 % (0-4); Hematocrit 32.4 % (37.0-47.0); Hemoglobin 10.5 g/dl (12.0-16.0); Imm Gran Abs Auto 0.02 X10*3/uL (0.00-0.03); Imm Gran Pct Auto 0.3 % (0.0-0.4); Lymphocytes Absolute Auto 1.1 X10*3/uL (1.2-4.9); Lymphocytes Percent Auto 13.6 % (20-40); Mean Corpuscular HGB Conc 32.4 g/dl (31.0-35.0); Mean Corpuscular Hemoglobin 25.3 pg (27.0-33.0); Mean Corpuscular Volume 78.1 fL (80.0-98.0); Mean Platelet Volume 10.9 fL (9.4-12.3); Monocytes Absolute Auto 0.7 X10*3/uL (0.1-1.2); Monocytes Percent Auto 8.3 % (2-11); Neutrophils Absolute Auto 5.9 x10*3/uL (2.0-8.3); Platelet Count 139 X10*3/uL (160-400); Red Blood Count 4.15 X10*6/uL (4.20-5.50); Red Cell Distribution Width 14.3 % (11.0-16.0); White Blood Count 7.9 X10*3/uL (4.8-10.8)
[2024-12-12 20:46] LABS: Alanine Aminotransferase 14 U/L (0-31); Albumin Level 3.9 g/dL (3.5-5.0); Alkaline Phosphatase 57 U/L (39-117); Anion Gap 12 (12-20); Aspartate Amino Transferase 17 U/L (5-31); Bilirubin Total 0.4 mg/dL (0.0-1.0); Blood Urea Nitrogen 13 mg/dL (9-16); Carbon Dioxide 23 mmol/L (22-29); Chloride 107 mmol/L (96-108); Creatinine Clr Calc Pharmacy 72.3; Estimated Glomerular Filt Rate > 60; Glucose Random 226 mg/dL (60-115); Magnesium 1.9 mg/dL (1.6-2.6); Potassium 3.8 mmol/L (3.3-5.1); Sodium 138 mmol/L (135-145); Total Protein 7.1 g/dL (6.5-8.0)
[2024-12-12 20:52] LABS: B Type Natriuretic Peptide 124 pg/mL (<100)
[2024-12-12 20:53] LABS: Troponin-I High Sensitivity 9.7 ng/L (<3.5-17.0)
[2024-12-12 21:07] LABS: Influenza A PCR NEGATIVE (Negative); Influenza B PCR NEGATIVE (Negative); Resp Syncy Virus RNA Qual PCR NEGATIVE (Negative); SARS COV2 PCR INHOUSE NEGATIVE (Negative)
--- OUTSIDE RECORDS SUMMARY | 2024-12-12 22:32 | XMS_ITS | Clinical Summary ---
Author Organization [employer] Address [address] [facility] [address] [place] [address] Care Team Providers Care Cylinder Press Feeder Name Role Phone Unavailable Primary Care Provider Unavailabl e Allergies Active Allergy Reactions Criticality Noted Date Comments Insulin Glargine 02/17/2021 Other reaction(s): Other (see comments) Chest pain Chest pain Metformin Palpitations Medium 10/30/2020 Other reaction(s): Other (chest pain) Immunizations Immunization Administration Dates Next Due Influenza High-dose Quadriva [...] patient's age to complete this topic Meningococcal B Vaccine Aged Out No l onger eligible based on patient's age to complete this topic Meningococcal Vaccine Aged Out No raj talha eligible based on patient's age to complete this topic RSV under 20 months Aged Out No longe r eligible based on patient's age to complete this topic Rotavirus Vaccines Aged Out No longer eligible based on patient's age to complete this topic Insurance [facility] STANDARD [place] [phone]
--- OUTSIDE RECORDS SUMMARY | 2024-12-12 22:32 | XMS_ITS | Encounter Summary ---
Author Organization [facility] Address [address] [place] [id number] Phone -[phone] Care Team Providers Care Taper Printed Circuit Layout Name Role Phone Anabela Jin MD Primary Care Provid er Reason for Visit * Reason Comments Med Change Request Encounter Details Date Type Department Care Team (Late st Contact Info) Description 12/25/2023 [facility] [address] [place], [place] [id number] Jewell Estrada APRN [address] [place] [address] Med Change Request Social History [...] documented as of this encounter Care Teams Taper Printed Circuit Layout Relationship Specialty Start Date End Date Anabela Jin MD [address] [place] [address] [place] [phone] PCP - General Internal Medicine 11/24/23 documented as of this encounter
--- OUTSIDE RECORDS SUMMARY | 2024-12-12 22:32 | XMS_ITS | Encounter Summary ---
Author Organization [facility] Address [address] [place] [address] Phone -x2013 Care Team Providers Care Knitting Machine Fixer Head Name Role Phone Anabela Jin MD Primary Care Provid er Reason for Visit * Reason Onset Date Comments Medication Problem 12/29/2023 semaglutide ( OZEMPIC) 0.25 mg or 0.5 mg (2 mg/3 mL) pen injector Advice Only 12/29/2023 Encounter Details Date Type Department Care Team ([facility] st Contact Info) Description 12/29/[address] [phone] Anabela Jin MD [address] [place] [address] [place] [phone] Medication Problem (semaglutide [...] James RN - 12/29/2023 4:15 PM EDT #[id number] bulgarian interpretor Called back pt and relayed medication [...] she didn't understand the previous call with farm rancher states line was cutting out and requesting a callback to get clarification on Rx if pt has to take .25 or 0.5mg and for how long please callback to advise Specify Name of Medication: semaglutide (OZEMPIC) 0.25 mg or 0.5 mg (2 mg/3 mL) pen injector Refill status:0 Preferred Language:bulgarian Caller was aware message would be routed to PCP team for review and F/U. Caller made aware of form policy. Caller verbalized understating and had no further question at this time. * Telephone Encounter - Priscilla Wilson - 12/29/2023 9:14 AM EDT Reason for call:states she didn't understand the previous call with farm rancher states line was cutting out and requesting a callback to get clarification on Rx if pt has to take .25 and for how longplease callback to advise Medication Issue/Schedule Appointment F/FU/Authorization Request: Specify Name of Medication:semaglutide (OZEMPIC) 0.25 mg or 0.5 mg (2 mg/3 mL) pen injector Refill status:0 Preferred Language:bulgarian Caller was aware message would be routed [...] documented as of this encounter Care Teams Knitting Machine Fixer Head Relationship Specialty Start Date End Date Anabela Jin MD [address] [place] [address] [place] [phone] PCP - General Internal Medicine 11/24/23 documented as of this encounter
--- OUTSIDE RECORDS SUMMARY | 2024-12-12 22:33 | XMS_ITS | Encounter Summary ---
Author Organization [facility] Address [address] [place] [id number] Phone -[phone] Care Team Providers Care Financial Services Manager Name Role Phone Anabela Jin MD Primary Care Provid er Reason for Visit * Reason Comments Med Change Request Encounter Details Date Type Department Care Team (Late st Contact Info) Description 01/27/2024 [facility] [address] [place], [place] [phone] Jewell Estrada APRN [address] [place] [address] Med Change Request Social History [...] documented as of this encounter Care Teams Financial Services Manager Relationship Specialty Start Date End Date Anabela Jin MD [address] [facility] [address] [place], [place] [phone] PCP - General Internal Medicine 11/24/23 documented as of this encounter
--- OUTSIDE RECORDS SUMMARY | 2024-12-12 22:33 | XMS_ITS | Clinical Summary ---
Author Organization [facility] Address [address] [place] [address] Care Team Providers Care Electronic Scale Tester Name Role Phone Anabela Jin MD Primary Care Provider [phone] Allergies Active Allergy Reactions Criticality Noted Date [...] patient's age to complete this topic Insurance [facility] MEDICARE PART A & B Care Teams Electronic Scale Tester Relationship Specialty Start Date End Date Anabela Jin MD [address] [place] [id number] PCP - General Family Medicine 02/17/21
--- OUTSIDE RECORDS SUMMARY | 2024-12-12 22:33 | XMS_ITS | Encounter Summary ---
Author Organization [facility] Address [address] [place] [address] Phone -x2013 Care Team Providers Care Elementary [employer] Counselor Name Role Phone Anabela Jin MD Primary Care Provid er Reason for Visit * Reason Comments Medication Refill Encounter Details Date Type Department Care Team (Late st Contact Info) Description 02/25/2024 Refill [facility] [address] [place], [place] [phone] Jewell Estrada APRN [address] [place] [address] Medication Refill Social History Tobacco [...] documented as of this encounter Care Teams Elementary [employer] Counselor Relationship Specialty Start Date End Date Anabela Jin MD [address] [place], [place] [phone] PCP - General Internal Medicine 11/24/23 documented as of this encounter
--- OUTSIDE RECORDS SUMMARY | 2024-12-12 22:33 | XMS_ITS | Clinical Summary ---
Author Organization [facility] Facility Address [address] [place] [address], [place] [address] Care Team Providers Care Parts Finisher Name Role Phone Anabela Jni MD Primary Care Provider [phone] Allergies Active Allergy Reactions Criticality Noted Date [...] [place] Care Teams Parts Finisher Relationship Specialty Start Date End Date Anabela Jin MD 2 [facility] [address] [place] [address] PCP - General Internal Medicine 09/03/21
--- OUTSIDE RECORDS SUMMARY | 2024-12-12 22:33 | XMS_ITS | Encounter Summary ---
Author Organization [facility] Address [address] [place] [address] Phone -x2013 Care Team Providers Care Bench Assembler Battery Name Role Phone Anabela Jin MD Primary Care Provid er Reason for Visit * Reason Onset Date Comments Medication Problem 12/25/2023 dulaglutide 3 mg/0.5 mL PnIj Encounter Details Date Type Department Care Team (Late st Contact Info) Description 12/25/[address] [address] Anabela Jin MD [address] [place] [address] [place] [phone] Medication Problem (dulaglutide [...] 3 mg/0.5 mL PnIj Refill status: Preferred Language:Romanian Caller was aware message would be routed [...] documented as of this encounter Care Teams Bench Assembler Battery Relationship Specialty Start Date End Date Anabela Jin MD [address] [place] [address] [place] [phone] PCP - General Internal Medicine 11/24/23 documented as of this encounter
--- OUTSIDE RECORDS SUMMARY | 2024-12-12 22:33 | XMS_ITS | Encounter Summary ---
Author Organization [facility] Address [address] [place] [address] Phone -x2013 Care Team Providers Care Syruper Name Role Phone Anabela Jin MD Primary Care Provid er Reason for Visit * Reason Comments Med Change Request Encounter Details Date Type Department Care Team (Late st Contact Info) Description 02/05/[address] [address] Jewell Estrada APRN [address] [place] [address] Med Change Request Social History [...] documented as of this encounter Care Teams Syruper Relationship Specialty Start Date End Date Anabela Jin MD [address] [place] [address] [place] [phone] PCP - General Internal Medicine 11/24/23 documented as of this encounter
[2024-12-12 22:40] VITALS: BP 136/74; PULSE 100; RESP 16; O2SAT 93
[2024-12-12 23:15] LABS: Appearance Urine Clear; Color Urine Yellow; Glucose Urine UA Negative (Negative); Leukocyte Esterase Urine Negative (Negative); Nitrite Urine Negative (Negative); PH 6.5 (5.0-9.0); Specific Gravity - Urine <= 1.005 (1.005-1.025); UMIC TRIGGER UACC YES; Urine Blood Trace (Negative); Urine Ketones Negative (Negative); Urine Protein Negative (Neg-Trace)
[2024-12-12 23:20] LABS: Bacteria Urine None Seen (None Seen); Hyaline Casts Urine 0-2 /LPF (0-2); RBC Urine 0-2 /HPF (0-2); Squamous Epithelial Cell Urine 0-2 /HPF (0-2); WBC Urine 0-5 /HPF (0-5)
[2024-12-13 00:33] VITALS: BP 137/80; PULSE 102; RESP 18; O2SAT 93
[2024-12-13 02:37] VITALS: BP 137/80; PULSE 102; RESP 18; TEMP 37; O2SAT 93
== END 2024-12-13 02:41 | disposition home or self-care (01) ==
PROVIDERS: Physician Assistant Medical; Emergency Provider Emergency Medicine; PCP Internal Medicine
DX: J18.8 Other pneumonia, unspecified organism (principal); R60.0 Localized edema; R05.9 Cough, unspecified; R06.02 Shortness of breath; R50.9 Fever, unspecified; Z03.818 Encounter for observation for suspected exposure to other biological agents ruled out; E11.9 Type 2 diabetes mellitus without complications; I11.0 Hypertensive heart disease with heart failure; I50.9 Heart failure, unspecified; E78.5 Hyperlipidemia, unspecified; Z79.02 Long term (current) use of antithrombotics/antiplatelets; Z79.4 Long term (current) use of insulin; Z79.85 Long-term (current) use of injectable non-insulin antidiabetic drugs; Z79.82 Long term (current) use of aspirin
CPT/HCPCS: 0241U; 36415; 71046; 80053; 81001; 83735; 83880; 84484; 85025; 93005; 99283; 99284

== ENCOUNTER → 2024-12-12 19:58 | Outpatient (BNV) | payer MEDICARE, MEDICAID, SELFPAY | PROVIDERS: PCP Internal Medicine; Visit Provider Radiology Diagnostic Radiology | DX: J90 Pleural effusion, not elsewhere classified (principal); R91.8 Other nonspecific abnormal finding of lung field | CPT/HCPCS: 71046 ==

== ENCOUNTER → 2024-12-12 19:59 | Outpatient (BNV) | payer MEDICARE, MEDICAID, SELFPAY | PROVIDERS: Emergency Provider Emergency Medicine; PCP Internal Medicine; Visit Provider Internal Medicine Cardiovascular Disease | DX: R00.0 Tachycardia, unspecified (principal) | CPT/HCPCS: 93010 ==

== ENCOUNTER 2024-12-17 07:06 | Emergency (ER) | payer MEDICARE, MEDICAID, SELFPAY ==
--- NOTE | ~2024-12-17 | XR_ITS ---
EXAMINATION: XR CHEST 2 VIEWS HISTORY: cough COMPARISON: Comparison is made with the prior examination dated 12/12/2024. FINDINGS: PA and lateral views of the chest are submitted. The examination is limited by difficulty in patient positioning. There is diffuse haziness of the left hemithorax which may represent a layering pleural effusion. No definite focal airspace opacity is seen. There is no pleural effusion, pneumothorax, or pulmonary vascular congestion. The heart is normal in size given technique. There is calcification of the aorta. There is degenerative disc disease of the spine. XR/XR chest 2V IMPRESSION: Limited examination as described. Possible layering left pleural effusion. Electronically signed by: Jean Galan MD 12/17/2024 09:40 AM EDT
[2024-12-17 07:11] VITALS: BP 156/72; PULSE 105; RESP 20; TEMP 36.2; O2SAT 96; BMI 26.9
--- OUTSIDE RECORDS SUMMARY | 2024-12-17 07:24 | XMS_ITS | Clinical Summary ---
Author Organization [facility] [address] [facility] Address [address] [place] [address] Phone Care Team Providers Care Professor Of Biostatistics Name Role Phone Anabela Jin MD Primary [...] Date Dyslipidemia associated with type 2 diabetes mellitus (HC Code) 12/25/2023 Type 2 diabetes mellitus wit h hyperglycemia, without long-term current use of insulin (HC Code) 12/18/2023 Essential hypertension 12/18/2023 Irritable bowel syndrome, [...] Comment Performing Lab: ?Site ID: [id number] ?Name: [email or web address] ?Address: [address] [place] [phone] ?Director: Robbin Monroy M.D. Jewell Estrada APRN URINE ORDERABLES Final Result [facility] [address] [place] [address] * (ABNORMAL) Lipid panel with reflex to direct LDL (Q) (12/18/2023 11:43 AM EDT) [facility] Cholesterol, Total 284(H) <200 mg/dL [facility] [...] LDL-C. Wade VARGAS et al. MAXIMILIANO. 2013;310(19): 6747-8434 (http://education.bead Button/faq/ZWN208) Chol/HDL Ratio 5.7(H) <5.0 (calc) [facility] [...] Comment Performing Lab: ?Site ID: [id number] ?Name: [email or web address] ?Address: [address] [place] [phone] ?Director: Robbin Monroy M.D. Jewell Estrada APRN LAB BLOOD ORDERABLES Final Re sult [facility] [address] [place] [address] * POCT glycosylated hemoglobin (HgbA1c), total (29885) (12/18/2023 9:13 AM EDT) Hemoglobin A1C, POC 11.3 4.0 - 6.0 % [facility] Test Lot Number [id number] [facility] Test Lot Exp Date 09/08/25 Date Format: MM/DD/YYYY [facility] 12/18/2023 9:13 AM EDT Jewell Estrada APRN POINT OF CARE TEST ORDERABLES Final Result Performing Organization Address [facility] Co de Phone Number [facility] from Last 3 Months or Most Recently Relevant to Health Maintenance Insurance MEDICARE [id number] MEDICAID MEDICARE [id number] MEDICAID MEDICAID [place] [facility] MEDICARE [id number] MEDICAID Care Teams Professor Of Biostatistics Relationship Specialty Start Date End Date Anabela Jin MD [address] [place] [address] [place] [phone] PCP - General Internal Medicine 11/24/23
[2024-12-17 07:56] VITALS: BP 132/70; PULSE 94; RESP 16; O2SAT 96
--- NOTE | 2024-12-17 08:08 | ED.GENADULT ---
HPI - General Adult General Chief complaint: General Medical Stated complaint: Asthma Diff Breathing Time Seen by Provider: 12/17/24 08:07 Source: patient, family and billing assistant Mode of arrival: ambulatory Limitations: language barrier History of Present Illness ED Provider: HPI narrative: 69-year-old female brought in by her daughter, patient was seen here on 12/12 and discharged home with consideration for mild CHF, and community-acquired pneumonia, daughter states that she continues to cough was worse in the evening, has not been able to see her PCP when she called they were told to come back to the emergency department. She also stated that patient has been having expiratory wheezing. Patient is an otherwise limited historian, she has a vague historian but did point to his chest stating that her heart hurts as I was asking her questions. Related Data Home Medications ?Medication ?Instructions ?Recorded ?Confirmed chlorthalidone 25 mg tablet 25 mg PO DAILY 01/23/24 11/16/24 aspirin 81 mg tablet,delayed 81 mg PO DAILY 01/28/24 11/16/24 release (Adult Low Dose Aspirin) Previous Rx's ?Medication ?Instructions ?Recorded 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 meter (FreeStyle #1 ea 11/15/20 Lite Meter kit) lancets 28 gauge (FreeStyle #100 ea 11/15/20 Lancets) wheelchair #1 ea 11/15/20 adhesive tape 1 X 10 yard #1 ea 08/09/21 (Band-Aid Paper Tape) gauze bandage 4 X 4 (Band-Aid #1,200 ea 08/09/21 Gauze Pads) blood sugar diagnostic (FreeStyle #100 ea 07/12/22 Lite Strips) personal wipes #200 ea 10/25/22 cholecalciferol (vitamin D3) 25 25 mcg PO DAILY #90 caps 03/04/23 mcg (1,000 unit) capsule acetaminophen 325 mg tablet 325 mg PO QID PRN pain #45 tabs 03/16/23 (Tylenol) glipizide 10 mg tablet, extended 10 mg PO DAILY 90 days #90 tabs 03/17/23 release 24 hr loperamide 2 mg capsule (Imodium 2 mg PO BID loose stool #60 caps 05/14/23 A-D) tramadol 50 mg tablet 50 mg PO BID PRN pain 30 days #60 06/17/23 tabs pen needle, diabetic 31 gauge x #100 ea 02/04/24/16 (Comfort EZ Pen Blanchard) sennosides 8.6 mg tablet (Senna 8.6 mg PO BEDTIME #60 tabs 02/13/24 Laxative) dicyclomine 20 mg tablet 20 mg PO QID 30 days #120 tabs 02/20/24 metoclopramide HCl 10 mg tablet 10 mg PO QIDACHS #120 tabs 02/20/24 (Reglan) commode #1 ea 03/15/24 Shower Chair #1 ea 04/28/24 walker with seat #1 ea 04/28/24 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,pyrometer operator,cont #1 ea 05/04/24 (FreeStyle Stephon 3 Hurley) glucose 4 gram chewable tablet 16 g (4 x 4 gram) PO Q15M PRN 05/04/24 (Dex4 Glucose) hypoglycemia #60 tabs amlodipine 10 mg tablet 10 mg PO DAILY 90 days #90 tabs 05/26/24 simethicone 180 mg capsule (Gas 180 mg PO BID PRN abdominal 05/26/24 Relief (simethicone)) distention 90 days #180 caps 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 sensor (FreeStyle #2 ea 05/27/24 Stephon 3 Sensor device) 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 sensor (FreeStyle #2 ea 06/10/24 Stephon 3 Plus Sensor device) ezetimibe 10 mg tablet 10 mg PO DAILY 90 days #90 tabs 06/15/24 ferrous sulfate 325 mg (65 mg 325 mg PO DAILY 90 days #90 tabs 07/04/24 iron) tablet lactulose 10 gram/15 mL oral 10 g (15 mL) PO BEDTIME PRN 07/19/24 solution constipation 30 days #237 mL atorvastatin 40 mg tablet 40 mg PO DAILY 90 days #90 tabs 08/16/24 acetaminophen 500 mg capsule 500 mg PO Q6H PRN fever #20 caps 09/08/24 insulin glargine 100 unit/mL (3 10 unit (0.1 mL) subcut QPM 90 10/10/24 mL) subcutaneous pen (Lantus days #9 mL Solostar U-100 Insulin) dulaglutide 3 mg/0.5 mL 3 mg (0.5 mL) subcut QWEEK #2 mL 03/31/25 subcutaneous pen injector (Trulicity) Dexilant 60 mg capsule, delayed 60 mg PO DAILY #30 caps 11/03/24 release (dexlansoprazole) omega-3 fatty acids-fish oil 300 1 cap PO BID #60 caps 11/24/24 mg-1,000 mg capsule sucralfate 100 mg/mL oral 10 ml PO QIDACHS #1,000 mL 11/30/24 suspension (Carafate) cephalexin 500 mg capsule 500 mg PO BID #10 caps 12/01/24 azithromycin 250 mg tablet See Rx Instructions PO .COMPLEX #6 12/13/24 tabs cefuroxime axetil 500 mg tablet 500 mg PO Q12H #14 tabs 12/13/24 furosemide 20 mg tablet (Lasix) 20 mg PO DAILY #5 tabs 12/13/24 miscellaneous medical supply #3 ea 12/15/24 benzonatate 200 mg capsule 200 mg PO TID PRN cough #14 caps 12/17/24 prednisone 10 mg tablet 10 mg PO BID 4 days #8 tabs 12/17/24 Allergies Allergy/AdvReac Type Severity Reaction Status Date / Time lisinopril Allergy Severe Swelling Verified 12/17/24 07:17 metformin Allergy Intermediate Intolerance, Verified 12/17/24 07:17 chest pain, high BP, diarrhea pantoprazole Allergy Intermediate rash Verified 12/17/24 07:17 quetiapine Allergy Intermediate chest pain Verified 12/17/24 07:17 empagliflozin Allergy Unknown Verified 12/17/24 07:17 [From Jardiance] orange juice Allergy Intermediate gerd Uncoded 12/17/24 07:17 Review of Systems Constitutional: Constitutional: Reports as per [facility] Past Medical History Medical History (Updated 12/17/24 @ 09:50 by Aryan Santiago DO) Dysuria Urinary frequency Aortic stenosis Uncontrolled type 2 diabetes mellitus with hyperglycemia, with long-term current use of insulin Shortness of breath Chest pain Fissure in skin of foot Impacted cerumen of left ear Dyspepsia Cyst of skin Left shoulder pain Diabetes mellitus Hospital discharge follow-up Medicare annual wellness visit, subsequent Cellulitis of left leg Dementia Retinitis pigmentosa of both eyes GERD (gastroesophageal reflux disease) Obesity (BMI 30-39.9) Vitamin D deficiency Dyslipidemia Hypertension Diabetic polyneuropathy associated with type 2 diabetes mellitus Diabetic nephropathy associated with type 2 diabetes mellitus Diabetes type 2, uncontrolled Surgical History History of esophagogastroduodenoscopy (EGD) H/O colonoscopy Hx of cholecystectomy Hx of tubal ligation Hx of hernia repair Family History Family History Father No problems noted. Mother Heart disease HTN (hypertension) Sister Pre-diabetes Brother Leukemia Son In good health Daughter In good health Daughter In good health Social History Social History Household Members: Family Housing: Apartment Alcohol intake: never Patient Tobacco Use Status: Never used Tobacco Smoked in Last 30 Days: No e-Cigarette/Vaping Use: Never Used Second Hand Smoke Exposure: No Use of substances other than those prescribed or required for medical reasons: No Advance Directives: No Advance Directives Information Provided: Yes service: No Current occupational status: disabled Cognitive needs: No Hearing needs: No Vision needs: No Physical Exam ED Vital Signs: Vital Signs - 24 hr 12/17/24 07:11 12/17/24 07:56 Temperature 97.2 F Pulse Rate 105 H 94 Respiratory Rate 20 16 Blood Pressure 156/72 H 132/70 Pulse Oximetry 96 96 Oxygen Delivery Method Room Air Room Air BMI result Body Mass Index 26.9 Const Other: Gen: ?Elderly woman appears slightly older than stated age HEENT: Edentulous, uvula is midline, no tonsillar exudates, legally blind Neck: Supple, no LAD CV: RRR, Resp: ?No wheezing rales rhonchi no stridor moving air well Abd: ?Bowel sounds are present, no tenderness no rebound no rigidity MSK: FROM, strength 5/5 all extremities, no lower extremity edema Skin: Warm, dry, intact, Neuro: ?Alert and oriented x3, moving upper and lower extremities symmetrically, no obvious facial asymmetry noted Medications Administered Discontinued Medications Generic Name Dose Route Start Last Admin Trade Name Freq PRN Reason Stop Dose Admin Benzonatate 200 mg 12/17/24 08:11 12/17/24 08:31 Benzonatate 100 Mg Capsule PO 12/17/24 08:12 200 mg ONCE ONE Administration Dexamethasone 10 mg 12/17/24 08:11 12/17/24 08:30 Dexamethasone 2 Mg Tablet PO 12/17/24 08:12 10 mg ONCE ONE Administration Medical Decision Making Medical Decision Making [facility] Narrative: 08:18 considerations for workup as below overall patient is nonfebrile, vital signs are stable, not tachycardic not hypoxic, daughter reported that she is wheezing she has not been wheezy on my physical examination did not feel she requires further nebulizer treatments, prior chest x-ray reviewed revealed small pleural effusions and possibly early onset infectious etiology so she is discharged on appropriate antibiotics and furosemide on December 12. We will make sure she is not having worsening radiologic course for pneumonia or CHF on chest x-ray or has pneumothorax, she complain of chest pain we will evaluate for cardiac issues, otherwise may treat for her symptoms and disposition to be determined. 09:49 re-evaluated continues to do well, workup discussed with daughter we will be discharging Differential Diagnosis Differential Diagnoses: The differential diagnosis associated with the presentation includes CHF, pneumonia, PE, asthma, COPD, dehydration, ACS Admission/Observation Consideration of admission/observation: Escalation of care including admission/observation considered Lab Data [facility] Lab Attestation statement: I reviewed the patient's lab results. 12/17/24 08:27 12/17/24 08:27 Labs: Lab Results 12/17/24 Range/Units 08:27 WBC 5.1 (4.8-10.8) X10*3/uL RBC 4.41 (4.20-5.50) X10*6/uL Hgb 11.0 L (12.0-16.0) g/dl Hct 34.8 L (37.0-47.0) % MCV 78.9 L (80.0-98.0) fL MCH 24.9 L (27.0-33.0) pg MCHC 31.6 (31.0-35.0) g/dl RDW 13.9 (11.0-16.0) % Plt Count 170 (160-400) X10*3/uL MPV 10.1 (9.4-12.3) fL Immature Gran % (Auto) 0.8 H (0.0-0.4) % Neut % (Auto) 63.0 (45-73) % Lymph % (Auto) 22.7 (20-40) % Amelia % (Auto) 8.4 (2-11) % Eos % (Auto) 4.7 H (0-4) % Baso % (Auto) 0.4 (0-2) % Lymph # (Auto) 1.2 (1.2-4.9) X10*3/uL Amelia # (Auto) 0.4 (0.1-1.2) X10*3/uL Eos # (Auto) 0.2 (0.0-0.4) X10*3/uL Baso # (Auto) 0.0 (0.0-0.2) X10*3/uL Abs Immat Gran (auto) 0.04 H (0.00-0.03) X10*3/uL Absolute Neuts (auto) 3.2 (2.0-8.3) x10*3/uL Absolute Nucleated RBC 0.000 (0.0-0.012) X10*3/uL Nucleated RBC % (auto) 0.0 (0.0-0.2) /100WBC Sodium 144 (135-145) mmol/L Potassium 4.0 (3.3-5.1) mmol/L Chloride 112 H (96-108) mmol/L Carbon Dioxide 25 (22-29) mmol/L Anion Gap 11 L (12-20) BUN 15 (9-16) mg/dL Creatinine 0.66 (0.5-1.4) mg/dL Estim Creat Clear Calc 76.6 Estimated GFR > 60 Random Glucose 112 (60-115) mg/dL Calcium 9.5 (8.4-10.2) mg/dL Total Bilirubin 0.2 (0.0-1.0) mg/dL AST 25 (5-31) U/L ALT 16 (0-31) U/L Alkaline Phosphatase 55 (39-117) U/L Troponin I High Sens 6.0 (<3.5-17.0) ng/L B-Natriuretic Peptide 76 (<100) pg/mL Total Protein 7.8 (6.5-8.0) g/dL Albumin 4.1 (3.5-5.0) g/dL Lipase 43 (8-78) U/L Independent Interpretation I performed an independent interpretation of an: EKG (93 otherwise normal ECG without dysrhythmia, AV morena blocks or ST-T changes to suspect underlying ACS, my independent interpretation) and Plain X-Ray (I do not appreciate acute findings compared to prior x-rays, no consolidations no pulmonary edema, I did not appreciate pleural effusions) Radiology Impression Discussion of test interpretation with radiology: I have reviewed the radiologist's reading. Chronic Conditions Patient?s care impacted by: Diabetes Discharge Plan Discharge Clinical Impression: Cough, persistent, Dyspnea Patient Disposition: Home, Self-Care Additional Instructions: Chest x-ray without worsening pneumonia, blood work reassuring, EKG reassuring, no fevers no abnormal vital signs and emergency department, use Tessalon Perles for cough, and steroids starting tomorrow, she is diabetic and may raise her sugars but hoping he is going to improve the cough in the next few days, please recall her PCP make sure she is re-evaluated in their office any other issues concerns come back to the ED. Prescriptions: New benzonatate 200 mg capsule 200 mg PO TID PRN (Reason: cough) Qty: 14 0RF prednisone 10 mg tablet 10 mg PO BID 4 Days Qty: 8 0RF No Action (DME) lancets [FreeStyle Lancets] 28 gauge misc See Rx Instructions .MEDSUPPLY Qty: 100 7RF Rx Instructions: 3 times a day (DME) 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 meter [FreeStyle Lite Meter] Kit See Rx Instructions miscellaneous .MEDSUPPLY Qty: 1 0RF Rx Instructions: 3 times a day (DME) FreeStyle Lite Strips Strip See Rx Instructions .MEDSUPPLY Qty: 100 11RF Rx Instructions: 3 times a day (DME) personal wipes See Rx Instructions .Route .MEDSUPPLY Qty: 200 6RF Rx Instructions: As directed cholecalciferol (vitamin D3) 25 mcg (1,000 unit) capsule 25 mcg PO DAILY Qty: 90 0RF acetaminophen [Tylenol] 325 mg tablet 325 mg PO QID PRN (Reason: pain) Qty: 45 0RF glipizide 10 mg tablet extended release 24hr 10 mg PO DAILY 90 Days Qty: 90 1RF tramadol 50 mg tablet 50 mg PO BID PRN (Reason: pain) 30 Days Qty: 60 0RF (DME) commode Kit See Rx Instructions .Route Qty: 1 0RF Rx Instructions: As directed (DME) walker with seat See Rx Instructions .Route .MEDSUPPLY Qty: 1 0RF Rx Instructions: As directed (DME) Shower Chair [facility] See Rx Instructions .Route Qty: 1 0RF Rx Instructions: As directed simethicone [Gas Relief (simethicone)] 180 mg capsule 180 mg PO BID PRN (Reason: abdominal distention) 90 Days Qty: 180 1RF amlodipine 10 mg tablet 10 mg PO DAILY 90 Days Qty: 90 1RF (DME) FreeStyle Stephon 3 Sensor Device See Rx Instructions .ROUTE .MEDSUPPLY Qty: 2 11RF Rx Instructions: apply new sensor every 14 days as directed (DME) FreeStyle Stephon 3 Plus Sensor Device See Rx Instructions .ROUTE .MEDSUPPLY Qty: 2 11RF Rx Instructions: Apply 1 new sensor every 14 days as directed to monitor blood glucose continuously. ferrous sulfate 325 mg (65 mg iron) tablet 325 mg PO DAILY 90 Days Qty: 90 1RF lactulose 10 gram/15 mL solution 10 g PO BEDTIME PRN (Reason: constipation) 30 Days Qty: 237 1RF atorvastatin 40 mg tablet 40 mg PO DAILY 90 Days Qty: 90 1RF insulin glargine [Lantus Solostar U-100 Insulin] 100 unit/mL (3 mL) insulin pen 10 unit subcut QPM 90 Days Qty: 9 1RF Trulicity 3 mg/0.5 mL pen injector 3 mg subcut QWEEK Qty: 2 3RF dexlansoprazole [Dexilant] 60 mg capsule,biphase delayed releas 60 mg PO DAILY Qty: 30 6RF omega-3 fatty acids-fish oil 300-1,000 mg capsule 1 cap PO BID Qty: 60 2RF cephalexin 500 mg capsule 500 mg PO BID Qty: 10 0RF (DME) miscellaneous medical supply [facility] See Rx Instructions .Route Qty: 3 0RF Rx Instructions: As directed azithromycin 250 mg tablet See Rx Instructions .ROUTE .COMPLEX Qty: 6 0RF Rx Instructions: For 250 mg dose pack: take 500 mg today (day 1), then 250 mg for 4 days (days 2-5) furosemide [Lasix] 20 mg tablet 20 mg PO DAILY Qty: 5 0RF cefuroxime axetil 500 mg tablet 500 mg PO Q12H Qty: 14 0RF (DME) wheelchair See Rx Instructions .Route .MEDSUPPLY Qty: 1 0RF Rx Instructions: As directed (DME) gauze bandage [Band-Aid Gauze Pads] 4 X 4 bandage See Rx Instructions .Route Qty: 1200 0RF Rx Instructions: As directed (DME) adhesive tape [Band-Aid Paper Tape] 1 X 10 -yard tape See Rx Instructions .Route Qty: 1 0RF Rx Instructions: As directed (DME) pen needle, diabetic [Comfort EZ Pen Blanchard] 31 gauge x 5/16 needle See Rx Instructions .Route Qty: 100 3RF Rx Instructions: Use 1 pen needle once a day sennosides [Senna Laxative] 8.6 mg tablet 8.6 mg PO BEDTIME Qty: 60 6RF (DME) FreeStyle Stpehon 3 Hurley Misc See Rx Instructions .ROUTE .MEDSUPPLY Qty: 1 0RF Rx Instructions: as directed glucose [Dex4 Glucose] 4 gram tablet,chewable 16 g PO Q15M PRN (Reason: hypoglycemia) Qty: 60 1RF Rx Instructions: until symptoms of low blood sugar are controlled ezetimibe 10 mg tablet 10 mg PO DAILY 90 Days Qty: 90 1RF sucralfate [Carafate] 100 mg/mL suspension 10 ml PO QIDACHS Qty: 1000 0RF loperamide [Imodium A-D] 2 mg capsule 2 mg PO BID Qty: 60 6RF chlorthalidone 25 mg tablet 25 mg PO DAILY aspirin [Adult Low Dose Aspirin] 81 mg tablet,delayed release (DR/EC) 81 mg PO DAILY metoclopramide HCl [Reglan] 10 mg tablet 10 mg PO QIDACHS Qty: 120 6RF Rx Instructions: dispense 10mg dose not 5mg dicyclomine 20 mg tablet 20 mg PO QID 30 Days Qty: 120 6RF acetaminophen 500 mg capsule 500 mg PO Q6H PRN (Reason: fever) Qty: 20 0RF Print Language: Kinyarwanda
--- NOTE | 2024-12-17 08:12 | ECG_ITS ---
Test Reason : sob Blood Pressure : */* mmHG Vent. Rate : 93 BPM Atrial Rate : 93 BPM P-R Int : 144 ms QRS Dur : 68 ms QT Int : 356 ms P-R-T Axes : 82 13 21 degrees QTcB Int : 442 ms Normal sinus rhythm Nonspecific T wave abnormality Abnormal ECG When compared with ECG of 12-Dec-2024 20:03, No significant change was found Referred By: Aryan Santiago Electronically Signed By: Isauro Toure
[2024-12-17] MEDS: dexAMETHasone 2 MG TABLET 10 MG PO (08:30)
[2024-12-17] MEDS: Benzonatate 100 MG CAPSULE 200 MG PO (08:31)
[2024-12-17 08:34] LABS: MANUAL DIFF FLAG NO
[2024-12-17 08:36] LABS: Basophils Percent Auto 0.4 % (0-2); Eosinophils Absolute Auto 0.2 X10*3/uL (0.0-0.4); Eosinophils Percent Auto 4.7 % (0-4); Hematocrit 34.8 % (37.0-47.0); Imm Gran Abs Auto 0.04 X10*3/uL (0.00-0.03); Imm Gran Pct Auto 0.8 % (0.0-0.4); Lymphocytes Absolute Auto 1.2 X10*3/uL (1.2-4.9); Lymphocytes Percent Auto 22.7 % (20-40); Mean Corpuscular HGB Conc 31.6 g/dl (31.0-35.0); Mean Corpuscular Hemoglobin 24.9 pg (27.0-33.0); Mean Corpuscular Volume 78.9 fL (80.0-98.0); Mean Platelet Volume 10.1 fL (9.4-12.3); Monocytes Absolute Auto 0.4 X10*3/uL (0.1-1.2); Monocytes Percent Auto 8.4 % (2-11); Neutrophils Absolute Auto 3.2 x10*3/uL (2.0-8.3); Platelet Count 170 X10*3/uL (160-400); Red Blood Count 4.41 X10*6/uL (4.20-5.50); Red Cell Distribution Width 13.9 % (11.0-16.0); White Blood Count 5.1 X10*3/uL (4.8-10.8)
[2024-12-17 08:51] LABS: Alanine Aminotransferase 16 U/L (0-31); Albumin Level 4.1 g/dL (3.5-5.0); Alkaline Phosphatase 55 U/L (39-117); Anion Gap 11 (12-20); Aspartate Amino Transferase 25 U/L (5-31); Bilirubin Total 0.2 mg/dL (0.0-1.0); Blood Urea Nitrogen 15 mg/dL (9-16); Calcium 9.5 mg/dL (8.4-10.2); Carbon Dioxide 25 mmol/L (22-29); Chloride 112 mmol/L (96-108); Creatinine Clr Calc Pharmacy 76.6; Estimated Glomerular Filt Rate > 60; Glucose Random 112 mg/dL (60-115); Lipase 43 U/L (8-78); Sodium 144 mmol/L (135-145); Total Protein 7.8 g/dL (6.5-8.0)
[2024-12-17 08:56] LABS: B Type Natriuretic Peptide 76 pg/mL (<100)
[2024-12-17 10:11] VITALS: BP 145/78; PULSE 97; RESP 20; TEMP 36.9; O2SAT 97
== END 2024-12-17 10:12 | disposition home or self-care (01) ==
PROVIDERS: Emergency Provider Emergency Medicine; PCP Internal Medicine
DX: R06.02 Shortness of breath (principal); R05.9 Cough, unspecified; R94.31 Abnormal electrocardiogram [ECG] [EKG]; E11.9 Type 2 diabetes mellitus without complications; Z79.4 Long term (current) use of insulin; Z79.899 Other long term (current) drug therapy
CPT/HCPCS: 36415; 71046; 80053; 83690; 83880; 84484; 85025; 93005; 99283; 99284; J8540

== ENCOUNTER → 2024-12-17 08:12 | Outpatient (BNV) | payer MEDICARE, MEDICAID, SELFPAY | PROVIDERS: Emergency Provider Emergency Medicine; PCP Internal Medicine; Visit Provider Radiology Diagnostic Radiology | DX: R05.9 Cough, unspecified (principal) | CPT/HCPCS: 71046 ==

== ENCOUNTER → 2024-12-17 08:12 | Outpatient (BNV) | payer MEDICARE, MEDICAID, SELFPAY | PROVIDERS: Emergency Provider Emergency Medicine; PCP Internal Medicine; Visit Provider Internal Medicine Cardiovascular Disease | DX: R94.31 Abnormal electrocardiogram [ECG] [EKG] (principal); R06.02 Shortness of breath | CPT/HCPCS: 93010 ==

== ENCOUNTER 2024-12-23 13:23 | Outpatient (REF) | payer MEDICARE, MEDICAID, SELFPAY ==
--- NOTE | ~2024-12-23 | XR_ITS ---
CLINICAL HISTORY: J90 - Pleural effusion, not elsewhere classified 2 view chest x-ray Comparison: 12/17/2024 Findings: No consolidation or effusion. Normal size heart. No acute fracture. IMPRESSION: 1. No acute findings. This document has been electronically signed by: Perry Mckinney MD on 12/24/2024 09:35:59
== END 2024-12-23 13:24 | disposition home or self-care (01) ==
LOC: HO.XRAY 13:23
PROVIDERS: PCP Internal Medicine; Visit Provider Internal Medicine
DX: J90 Pleural effusion, not elsewhere classified (principal); N39.41 Urge incontinence; K21.9 Gastro-esophageal reflux disease without esophagitis; G30.0 Alzheimer's disease with early onset; F02.80 Dementia in other diseases classified elsewhere, unspecified severity, without behavioral disturbance, psychotic disturbance, mood disturbance, and anxiety; I10 Essential (primary) hypertension; E78.5 Hyperlipidemia, unspecified; E11.9 Type 2 diabetes mellitus without complications
CPT/HCPCS: 71046; 96127; 99212

== ENCOUNTER 2024-12-23 13:23 | Outpatient (AMB) | payer MEDICARE, MEDICAID, SELFPAY ==
--- OUTSIDE RECORDS SUMMARY | 2024-12-23 13:31 | XMS_ITS | Clinical Summary ---
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 Jewell Estrada APRN URINE ORDERABLES Final Result [facility] [address] [place] [address] * (ABNORMAL) Lipid panel with reflex to direct LDL (Q) (12/18/2023 11:43 AM EDT) [facility] Cholesterol, Total 284(H) <200 mg/dL [facility] [...] LDL-C. Wade VARGAS et al. MAXIMILIANO. 2013;310(19): 2063-1457 ([email or web address]://[email or web address]/[email or web address]) Chol/HDL Ratio 5.7(H) <5.0 (calc) [facility] [...] Comment Performing Lab: ?Site ID: [id number] ?Name: [facility] ?Address: [address] [place] [phone] ?Director: Robbin Monroy M.D. Jewell Estrada APRN LAB BLOOD ORDERABLES Final Re sult [facility] [address] [place] [address] * POCT glycosylated hemoglobin (HgbA1c), total (99328) (12/18/2023 9:13 AM EDT) Hemoglobin A1C, POC 11.3 4.0 - 6.0 % [facility] Test Lot Number [id number] [facility] Test Lot Exp Date 09/08/25 Date Format: MM/DD/YYYY [facility] 12/18/2023 9:13 AM EDT Jewell Estrada APRN POINT OF CARE TEST ORDERABLES Final Result Performing Organization Address [facility] Co de Phone Number [facility] from Last 3 Months or Most Recently Relevant to Health Maintenance Insurance MEDICARE [id number] MEDICAID MEDICARE [id number] MEDICAID MEDICAID [place] [employer] MEDICARE [id number] MEDICAID Care Teams Dry Wall Plasterer Relationship Specialty Start Date End Date Anabela Jin MD [address] [place] [address] [place] [phone] PCP - General Internal Medicine 11/24/23
--- NOTE | 2024-12-23 13:50 | A.OFFPC_ITS ---
Vital Signs 12/23/24 13:52 Height 5 ft 4 in Weight 152 lb BMI 26.1 BP 126/70 Blood Pressure Location Lt brachial Position Sitting Intake Visit Reasons: DM Intake Note: Patient here for a follow up DM Director Of Student Aid Required: No Accompanied by: Daughter Allergies lisinopril Allergy (Severe, Verified 12/23/24 14:03) Swelling metformin Allergy (Intermediate, Verified 12/23/24 14:03) Intolerance, chest pain, high BP, diarrhea pantoprazole Allergy (Intermediate, Verified 12/23/24 14:03) rash quetiapine Allergy (Intermediate, Verified 12/23/24 14:03) chest pain empagliflozin [From Jardiance] Adverse Reaction (Intermediate, Verified 12/23/24 14:12) uti orange juice Allergy (Intermediate, Uncoded 12/23/24 14:03) gerd Medication List - Last Reconciled 12/23/24 by Anabela [place] MD acetaminophen (Tylenol) 325 mg PO QID PRN acetaminophen 500 mg PO Q6H PRN adhesive tape (Band-Aid Paper Tape) As directed amlodipine 10 mg PO DAILY 90 days aspirin (Adult Low Dose Aspirin) 81 mg PO DAILY atorvastatin 40 mg PO DAILY 90 days azithromycin For 250 mg dose pack: take 500 mg today (day 1), then 250 mg for 4 days (days 2-5) blood sugar diagnostic (FreeStyle Lite Strips) 3 times a day 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 meter (FreeStyle Lite Meter kit) 3 times a day 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 sensor (FreeStyle Stephon 3 Sensor device) apply new sensor every 14 days as directed 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 sensor (FreeStyle Stephon 3 Plus Sensor device) Apply 1 new sensor every 14 days as directed to monitor blood glucose continuously. 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,cont (FreeStyle Stephon 3 Gaines) as directed chlorthalidone 25 mg PO DAILY cholecalciferol (vitamin D3) 25 mcg PO DAILY commode As directed Dexilant (dexlansoprazole) 60 mg PO DAILY NS dicyclomine 20 mg PO QID 30 days dulaglutide (Trulicity) 3 mg (0.5 mL) subcut QWEEK ezetimibe 10 mg PO DAILY 90 days ferrous sulfate 325 mg PO DAILY 90 days furosemide (Lasix) 20 mg PO DAILY gauze bandage (Band-Aid Gauze Pads) As directed glipizide ER 10 mg PO DAILY 90 days glucose (Dex4 Glucose) 16 grams (4 x 4 gram) PO Q15M PRN insulin glargine (Lantus Solostar U-100 Insulin) 10 units (0.1 mL) subcut QPM 90 days lactulose 10 grams (15 mL) PO BEDTIME PRN 30 days lancets (FreeStyle Lancets) 3 times a day loperamide (Imodium A-D) 2 mg PO BID metoclopramide HCl (Reglan) 10 mg PO QIDACHS miscellaneous medical supply As directed omega-3 fatty acids-fish oil 300-1,000 mg 1 cap PO BID pen needle, diabetic (Comfort EZ Pen [place]) Use 1 pen needle once a day [personal wipes As directed] sennosides (Senna Laxative) 8.6 mg PO BEDTIME Shower Chair As directed simethicone (Gas Relief (simethicone)) 180 mg PO BID PRN 90 days sucralfate (Carafate) 10 mL PO QIDACHS tramadol 50 mg PO BID PRN 30 days [walker with seat As directed] [wheelchair As directed] Tobacco use date assessed: 12/23/24 Fall risk assessment: No Falls in past year Last assessed Fall Risk: 12/23/24 Dental Screening Dental Screen Date: 12/23/24 Did you have a dental visit in the last 12 months?: No Did you have a dental problem in the last 6 months where you did not have access to dental care?: No Was dental information given to patient?: Patient declined HPI HPI Comments History of Present Illness Details The patient is a 69-year-old female presenting with concerns related to her chronic medical conditions and a recent upper respiratory infection. She is treated for Type 2 Diabetes Mellitus, hypertension, and hyperlipidemia, with her medication regimen including Trulicity, atorvastatin, and various antihypertensives. The patient also has a history of aortic valve stenosis, with a recent echocardiogram pending to reassess her condition. A1c of 7% in September and diabetes mellitus is follow by Endocrinology. She reports intermittent swelling in her legs, which has been previously managed with Lasix. Her history of upper respiratory infection was marked by a fever and was treated with antibiotics and prednisone, with subsequent improvement in her respiratory symptoms. Past episodes of UTIs were linked to Jardiance, which has been discontinued. Chronic constipation is managed with lactulose, and there is a noted cognitive decline due to dementia. [facility] Medical History (Updated 12/23/24 @ 14:53 by Anabela [place] MD) Diabetes mellitus Dysuria Urinary frequency Aortic stenosis Uncontrolled type 2 diabetes mellitus with hyperglycemia, with long-term current use of insulin Shortness of breath Chest pain Fissure in skin of foot Impacted cerumen of left ear Dyspepsia Cyst of skin Left shoulder pain Hospital discharge follow-up Medicare annual wellness visit, subsequent Cellulitis of left leg Dementia Retinitis pigmentosa of both eyes GERD (gastroesophageal reflux disease) Obesity (BMI 30-39.9) Vitamin D deficiency Dyslipidemia Hypertension Diabetic polyneuropathy associated with type 2 diabetes mellitus Diabetic nephropathy associated with type 2 diabetes mellitus Diabetes type 2, uncontrolled Surgical History History of esophagogastroduodenoscopy (EGD) H/O colonoscopy Hx of cholecystectomy Hx of tubal ligation Hx of hernia repair Family History Father No problems noted. Mother Heart disease HTN (hypertension) Sister Pre-diabetes Brother Leukemia Son In good health Daughter In good health Daughter In good health Social History Household Members: Family Housing: Apartment Alcohol intake: never Patient Tobacco Use Status: Never used Tobacco e-Cigarette/Vaping Use: Never Used Second Hand Smoke Exposure: No service: No Current occupational status: disabled Cognitive needs: No Hearing needs: No Vision needs: No Questionnaire PHQ-9 Over the last 2 weeks, how often have you been bothered by any of the following problems? 1. Little interest or pleasure in doing things: not at all 2. Feeling down, depressed, or hopeless: not at all 3. Trouble falling or staying asleep, or sleeping too much: not at all 4. Feeling tired or having little energy: several days 5. Poor appetite or overeating: not at all 6. Feeling bad about yourself - or that you are a failure or have let yourself or your family down: not at all 7. Trouble concentrating on things, such as reading the newspaper or watching television: nearly every day 8. Moving or speaking so slowly that other people could have noticed. Or the opposite - being so fidgety or restless that you have been moving around a lot more than usual: not at all 9. Thoughts that you would be better off or of hurting yourself in some way: not at all Total score: 4 Depression Screening Interpretation: Positive Depression Screening Follow-up: Existing condition and Follow-up Visit Requested Depression Screening Done: Yes 99247 - PHQ-9 Billing: Yes Source: Developed by Drs. Jean Francis, Prisca Drew, Eliseo Suarez and colleagues, with an educational logan from [employer]. Thrive Questionnaire Date Thrive assessed: 12/23/24 I am a: Patient What is your living situation today?: I have a steady place to live Within the past 12 months, did the food you bought not last and you didn't have the money to get more?: Sometimes True Within the past 12 months, did you worry whether your food would run out before you got money to buy more?: Sometimes True Do you have trouble paying for medicines?: No Do you have trouble getting transportation to medical appointments?: No Do you have trouble paying your heating and electricity bill?: No Do you have trouble taking care of your child, family member or friend?: No Do you have trouble with day-to-day activities such as bathing, preparing meals, shopping, managing finances, etc.?: Yes Are you currently unemployed and looking for a job?: No Are you interested in more education?: I choose not to answer this question Please select the resources that you would like help with: None Currently or been in a relationship where the following occur: No concerns reported THRIVE Score: 2 AUDIT C Alcohol Use Questionnaire (AUDIT-C) 1. How often do you have a drink containing alcohol?: Never Total Score: 0 Score Reviewed/Action Taken: No KALIE-7 AMB Questionnaire KALIE-7 Date KALIE - 7 assessed: 12/23/24 Feeling nervous, anxious, or on edge: 0 = Not at all Not being able to stop or control worryin = Not at all Worrying too much about different things: 0 = Not at all Trouble relaxin = Not at all Being so restless that it is hard to sit still: 0 = Not at all Becoming easily annoyed or irritable: 0 = Not at all Feeling afraid as if something awful might happen: 0 = Not at all Total KALIE-7 score (0-4 normal; 5-9 mild; 10-14 moderate; 15-21 severe): 0 Source: Developed by Drs. Jean Francis, Prisca Drew, Eliseo Suarez and colleagues, with an educational logan from [employer]. KALIE-7 Assessment Billing KALIE-7 Assessment Tool: KALIE-7 Assessment 58917 Review of Systems Const All systems reviewed & are unremarkable except as noted in HPI and below Card Denies chest pain at rest, Denies chest pain with activity, Denies edema, Denies irregular heart rhythm, Denies claudication, Denies dyspnea, Denies dyspnea on exertion, Denies orthopnea, Denies paroxysmal nocturnal dyspnea and Denies slow heart rate Resp Denies cough, Denies dyspnea and Denies dyspnea on exertion GI Denies abdominal pain, Denies change in bowel habits, Denies excessive flatus, Denies nausea and Denies vomiting Neuro Denies lack of coordination Physical exam (Primary Care) Vital Signs: Last Vital Signs BP 126/70 12/23/24 13:52 BMI result Body Mass Index 26.1 Tobacco/Smoking Status: Tobacco use Status Tobacco use date assessed 12/23/24 12/23/24 13:59 Patient Tobacco Use Status Never used Tobacco 12/23/24 13:54 e-Cigarette/Vaping Use Never Used 12/23/24 13:54 PHQ-9: PHQ-9 Score PHQ-9: Total score 4 12/23/24 14:05 Depression Screening Interpretation: Positive Depression Screening Follow-up: Ex isting condition and Follow-up Visit Requested Thrive Assessment: Date of Thrive Assessment Date Thrive assessed 12/23/24 12/23/24 13:54 Currently or been in a relationship where the following occur: No concerns reported Resp Effort & Inspection: normal respiratory effort Auscultation: clear to auscultation bilaterally Cardio Jugular venous distension: no JVD Rate: regular rate Rhythm: regular rhythm Heart sounds: S1 normal heart sound present and S2 normal heart sound present Extrem General: Yes full ROM Coding Level of Care Code Est Pt Level 4 (91534) Complex EM visit Add On G2211 Diagnoses Pleural effusion, left J90 Urge urinary incontinence N39.41 Chronic GERD K21.9 Early onset Alzheimer's dementia without behavioral disturbance G30.0; F02.80 Dementia type: Alzheimer's Alzheimer's disease onset: early-onset Dementia behavioral disturbance: without behavioral disturbance Essential hypertension I10 Hypertension type: essential hypertension Dyslipidemia E78.5 Diabetes mellitus E11.9 Additional Codes KALIE-7 Assessment Billing - KALIE-7 Assessment Tool: KALIE-7 Assessment 11486 ([id number]) PHQ-9 - 36464 - PHQ-9 Billing: Yes ([id number]) Time Spent (min) 24 Assessment & Plan Assessment & Plan (1) Pleural effusion, left: Code(s): J90 - Pleural effusion, not elsewhere classified Category: Medical (2) Urge urinary incontinence: Code(s): N39.41 - Urge incontinence Category: Medical (3) Chronic GERD: Code(s): K21.9 - Gastro-esophageal reflux disease without esophagitis Category: Medical (4) Dementia: Code(s): F03.90 - Unspecified dementia, unspecified severity, without behavioral disturbance, psychotic disturbance, mood disturbance, and anxiety Category: Medical Qualifiers: Dementia type: Alzheimer's Alzheimer's disease onset: early-onset Dementia behavioral disturbance: without behavioral disturbance Qualified Code(s): G30.0 - Alzheimer's disease with early onset; F02.80 - Dementia in other diseases classified elsewhere without behavioral disturbance (5) Hypertension: Code(s): I10 - Essential (primary) hypertension Category: Medical Qualifiers: Hypertension type: essential hypertension Qualified Code(s): I10 - Essential (primary) hypertension (6) Dyslipidemia: Code(s): E78.5 - Hyperlipidemia, unspecified Category: Medical (7) Diabetes mellitus: Code(s): E11.9 - Type 2 diabetes mellitus without complications Category: Medical Plan The patient's management of Type 2 Diabetes Mellitus, hypertension, and hyperlipidemia will continue with her current medications, with glucose levels monitored regularly. An upcoming echocardiogram will assess her aortic valve stenosis and ejection fraction. Lasix may be utilized for leg swelling. Her recent respiratory infection has been treated effectively. Jardiance has been discontinued to prevent further UTIs, and alternative diabetes management strategies are under review. Lactulose will continue for constipation. Monitoring of her cognitive status is ongoing due to dementia. Regular follow-up with cardiology is planned. Patient was informed and verbally consented to the use of an ambient scribe for clinic note documentation during this visit. During the visit, we discussed the patient's multiple chronic conditions and ongoing management strategies. The benefits and risks of her current medication regimen for diabetes, hypertension, and hyperlipidemia were reviewed. We addre ssed her heart failure and aortic valve stenosis, with a follow-up echocardiogram scheduled. The management of leg swelling with diuretics was considered. We discussed her recent upper respiratory infection treatment and the discontinuation of Jardiance due to UTIs. The patient's cognitive decline was acknowledged, and ongoing monitoring was advised. We agreed on the necessity for regular follow-up appointments to manage her complex medical needs effectively. Orders: Orders XR chest 2V Today J90 - Pleural effusion, not elsewhere classified Complete Blood Count Auto Diff 4 Months D64.9 - Anemia, unspecified Lipid Panel 4 Months E78.5 - Hyperlipidemia, unspecified IRON PROFILE 4 Months D64.9 - Anemia, unspecified Microalbumin, Random (w Creat) 4 Months R80.9 - Proteinuria, unspecified Vitamin D 25-OH Total 4 Months E55.9 - Vitamin D deficiency, unspecified Comprehensive [place]. Panel Fast 4 Months K21.9 - Gastro-esophageal reflux disease without esophagitis Medications: New [adult diapers pull-ups] Use 1 diaper 6 times a day 120 ea 11RF N39.41 - Urge incontinence Changed From furosemide (Lasix) 20 mg PO DAILY 5 tabs 0RF To furosemide (Lasix) 20 mg PO DAILY PRN 20 tabs 2RF edema 30 days Refilled Dexilant (dexlansoprazole) 60 mg PO DAILY 30 caps 6RF NS Patient Instructions: - Continue taking your prescribed medications as directed. - Monitor your blood glucose levels regularly and report any significant changes. - Attend your scheduled echocardiogram appointment. - Notify us if you experience increased leg swelling or other concerning symptoms. - Follow any additional instructions provided by your pit tanner. - Continue with lactulose as needed for constipation. - Report any signs of urinary tract infections immediately. - Attend all follow-up appointments as scheduled.
[2024-12-23 13:52] VITALS: BP 126/70; BMI 26.1
== END 2024-12-23 14:17 | disposition home or self-care (01) ==
LOC: HO.HMCH 13:24
PROVIDERS: PCP Internal Medicine; Visit Provider Internal Medicine
DX: G30.0 Alzheimer's disease with early onset (principal); F02.80 Dementia in other diseases classified elsewhere, unspecified severity, without behavioral disturbance, psychotic disturbance, mood disturbance, and anxiety; E11.69 Type 2 diabetes mellitus with other specified complication; J90 Pleural effusion, not elsewhere classified; N39.41 Urge incontinence; K21.9 Gastro-esophageal reflux disease without esophagitis; I10 Essential (primary) hypertension; E78.5 Hyperlipidemia, unspecified

== ENCOUNTER → 2024-12-23 14:36 | Outpatient (BNV) | payer MEDICARE, MEDICAID, SELFPAY | PROVIDERS: PCP Internal Medicine; Visit Provider Specialist | DX: J90 Pleural effusion, not elsewhere classified (principal) | CPT/HCPCS: 71046 ==

== ENCOUNTER 2025-01-04 09:53 | Outpatient (AMB) | payer MEDICARE, MEDICAID, SELFPAY ==
--- NOTE | 2025-01-04 10:05 | MHC.OFFVIS ---
Vital Signs 01/04/25 10:11 Height 5 ft 4 in Weight 156 lb 15.506 oz BMI 26.9 BP 126/58 L Blood Pressure Location Lt brachial Position Sitting Pulse 87 Pulse Source Pulse Oximeter Pulse Oximetry (%) 98 Oxygen Delivery Method Room Air Intake Visit Reasons: T2DM Intake Note: Patient present today to follow up on Type 2 Diabetes Mellitus. Last Diabetic Eye exam: Legally Blind Last Podiatry Visit: Does not see a Recycling Operator Random Glucose: 119 mg/dl HgA1C: 8.1% 01/04/2025 Threshing Department Supervisor Required: Yes Threshing Department Supervisor Language: Medical Library Assistant Services: Threshing Department Supervisor Present Threshing Department Supervisor Name: Kimi [id number] Information Interpreted: non-clinical & clinical Accompanied by: Daughter Allergies lisinopril Allergy (Severe, Verified 01/04/25 10:11) Swelling metformin Allergy (Intermediate, Verified 01/04/25 10:11) Intolerance, chest pain, high BP, diarrhea pantoprazole Allergy (Intermediate, Verified 01/04/25 10:11) rash quetiapine Allergy (Intermediate, Verified 01/04/25 10:11) chest pain empagliflozin [From Jardiance] Adverse Reaction (Intermediate, Verified 01/04/25 10:11) uti orange juice Allergy (Intermediate, Uncoded 01/04/25 10:11) gerd Medication List - Last Reconciled 01/04/25 by ANTONIO Beatty acetaminophen (Tylenol) 325 mg PO QID PRN acetaminophen 500 mg PO Q6H PRN adhesive tape (Band-Aid Paper Tape) As directed [adult diapers pull-ups Use 1 diaper 6 times a day] amlodipine 10 mg PO DAILY 90 days aspirin (Adult Low Dose Aspirin) 81 mg PO DAILY atorvastatin 40 mg PO DAILY 90 days azithromycin For 250 mg dose pack: take 500 mg today (day 1), then 250 mg for 4 days (days 2-5) blood sugar diagnostic (FreeStyle Lite Strips) 3 times a day 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 meter (FreeStyle Lite Meter kit) 3 times a day 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 sensor (FreeStyle Stephon 3 Sensor device) apply new sensor every 14 days as directed 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 sensor (FreeStyle Stephon 3 Plus Sensor device) Apply 1 new sensor every 14 days as directed to monitor blood glucose continuously. 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,clerical grader,cont (FreeStyle Stephon 3 [place]) as directed chlorthalidone 25 mg PO DAILY cholecalciferol (vitamin D3) 25 mcg PO DAILY commode As directed Dexilant (dexlansoprazole) 60 mg PO DAILY NS dicyclomine 20 mg PO QID 30 days dulaglutide (Trulicity) 3 mg (0.5 mL) subcut QWEEK ezetimibe 10 mg PO DAILY 90 days ferrous sulfate 325 mg PO DAILY 90 days furosemide (Lasix) 20 mg PO DAILY PRN 30 days gauze bandage (Band-Aid Gauze Pads) As directed glipizide ER 10 mg PO DAILY 90 days glucose (Dex4 Glucose) 16 grams (4 x 4 gram) PO Q15M PRN insulin glargine (Lantus Solostar U-100 Insulin) 10 units (0.1 mL) subcut QPM 90 days lactulose 10 grams (15 mL) PO BEDTIME PRN 30 days lancets (FreeStyle Lancets) 3 times a day loperamide (Imodium A-D) 2 mg PO BID metoclopramide HCl (Reglan) 10 mg PO QIDACHS miscellaneous medical supply As directed omega-3 fatty acids-fish oil 300-1,000 mg 1 cap PO BID pen needle, diabetic (Comfort EZ Pen [place]) Use 1 pen needle once a day [personal wipes As directed] sennosides (Senna Laxative) 8.6 mg PO BEDTIME Shower Chair As directed simethicone (Gas Relief (simethicone)) 180 mg PO BID PRN 90 days sucralfate (Carafate) 10 mL PO QIDACHS tramadol 50 mg PO BID PRN 30 days [walker with seat As directed] [wheelchair As directed] HPI Comments Details: This is a 69-year-old female with a past medical history of dementia, legal blindness, type 2 diabetes, dyslipidemia, hypertension, obesity, GERD and chronic constipation presenting for diabetic management. She is with her daughter, Nicolette. 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 Stephon 3 data December 22 to January 04 CGM active 89% Average glucose 213 Glucose management indicator 8.4% Glucose variability 34.9%. Very high 29% High 30% Target range 41% 0% hypoglycemia Pattern of hyperglycemia fairly consistent during the day with some hyperglycemia overnight. Hemoglobin a1c 8.1% up from 7.0% 10/05/2024. She had pneumonia and november in was on prednisone for 4 or 5 days. She completed this. She feels well. Microvascular complications: neuropathy, nephropathy (microalbumin) Macrovascular complications: none Hypertension: treated with amlodipine 10 mg, chlorthalidone 25 mg. Intolerant to DEBBY inhibitor which caused swelling. Hyperlipidemia: treated with atorvastatin 40 mg and Zetia 10 mg daily. She is also on furosemide. Current medication regimen in EMR: Lantus 10 units nightly, glipizide ER 10 mg daily, Trulicity 3 mg weekly. Confirmed with pharmacy Glipizide was last dispensed 2 years ago. Daughter states she has not been taking it. Past medication: Intolerant to metformin which caused diarrhea, chest pain and elevated blood pressure. Jardiance discontinued due to vaginitis and UTI. She saw the ring barker operator and anesthesiologist and critical care. Hypoglycemia symptoms: none. Denies episodes. Hyperglycemia symptoms: none. Denies episodes. ROS: Constitutional: No unexplained weight loss, fever, chills. Respiratory: No shortness of breath, cough, wheezing, sputum production or hemoptysis Cardiovascular: No chest pain Gastrointestinal: No nausea, vomiting or abdominal pain. Genitourinary: No dysuria, hematuria, urinary frequency. Neurologic: No headache, dizziness, syncope Skin: No rash or itching. Endocrine: No polyuria or polydipsia. Physical exam: Constitutional: Alert, in no distress. Mouth: No erythema, swelling or lesions. Respiratory: Clear to auscultation. Cardiovascular: S1 S2 regular. Systolic murmur. Lower extremities: Warm and well perfused, 1+ pedal edema bilaterally. [facility] Medical History (Updated 12/23/24 @ 14:53 by Anabela Thompson MD) Diabetes mellitus Dysuria Urinary frequency Aortic stenosis Uncontrolled type 2 diabetes mellitus with hyperglycemia, with long-term current use of insulin Shortness of breath Chest pain Fissure in skin of foot Impacted cerumen of left ear Dyspepsia Cyst of skin Left shoulder pain Hospital discharge follow-up Medicare annual wellness visit, subsequent Cellulitis of left leg Dementia Retinitis pigmentosa of both eyes GERD (gastroesophageal reflux disease) Obesity (BMI 30-39.9) Vitamin D deficiency Dyslipidemia Hypertension Diabetic polyneuropathy associated with type 2 diabetes mellitus Diabetic nephropathy associated with type 2 diabetes mellitus Diabetes type 2, uncontrolled Surgical History History of esophagogastroduodenoscopy (EGD) H/O colonoscopy Hx of cholecystectomy Hx of tubal ligation Hx of hernia repair Family History Father No problems noted. Mother Heart disease HTN (hypertension) Sister Pre-diabetes Brother Leukemia Son In good health Daughter In good health Daughter In good health Social History Household Members: Family Housing: Apartment Alcohol intake: never Patient Tobacco Use Status: Never used Tobacco e-Cigarette/Vaping Use: Never Used Second Hand Smoke Exposure: No service: No Current occupational status: disabled Cognitive needs: No Hearing needs: No Vision needs: No Physical Exam Vital Signs: Last Vital Signs Pulse 87 01/04/25 10:11 BP 126/58 L 01/04/25 10:11 Pulse Ox 98 01/04/25 10:11 Oxygen Delivery Method Room Air 01/04/25 10:11 BMI result Body Mass Index 26.9 Office Procedures Glucose Monitoring Details Details: see [facility] [id number] - Glucose monitoring, continuous-physician I&R Procedure code (CPT) selection complete Results AMB Hemoglobin A1c AMB Hemoglobin A1c 8.1 % Last Edit by ALDO Carlos on 01/04/25 10:27 Results Reviewed Results Reviewed: Laboratory Last Values Glucose (Clinic) 119 mg/dL (60-115) H 01/04/25 10:18 Hgb A1c (Clinic) 8.1 % (4.0-6.0) H 01/04/25 10:20 Laboratory Tests 04/26/19 07/02/24 12/17/24 10:36 09:24 08:27 Plt Count 170 Creatinine 0.66 Estimated GFR > 60 Hgb A1c (Clinic) AST 25 ALT 16 B-Natriuretic Peptide 76 Protein/Creatinin Ratio 0.28 H Urine Microalbumin 58.0 Microalb/Creat Ratio 91.5 H 01/04/25 10:20 Plt Count Creatinine Estimated GFR Hgb A1c (Clinic) 8.1 H AST ALT B-Natriuretic Peptide Protein/Creatinin Ratio Urine Microalbumin Microalb/Creat Ratio Assessment & Plan Assessment & Plan (1) Uncontrolled type 2 diabetes mellitus with hyperglycemia, with long-term current use of insulin: Code(s): E11.65 - Type 2 diabetes mellitus with hyperglycemia; Z79.4 - terminal gauger (current) use of insulin Category: Medical (2) Diabetic nephropathy associated with type 2 diabetes mellitus: Code(s): E11.21 - Type 2 diabetes mellitus with diabetic nephropathy Category: Medical Plan In summary this is a 69-year-old female with Type II DM with microvascular complications. Continue Trulicity 3 mg weekly. She has no side effects after taking the medication yesterday at this dosage for the 1st time. Continue Lantus 10 units daily. Start glipizide 2.5 mg daily. Reviewed diabetic diet. Reviewed comorbidities associated with type 2 diabetes. Bring glucometer to all appointments. Reviewed treatment of hypo and hyperglycemia. Patient traveling through February to [place]. Follow up in 3 months for Type II DM. Orders: Orders AMB Hemoglobin A1c Today E11.9 - Type 2 diabetes mellitus without complications AMB Glucose Monitoring Today E11.9 - Type 2 diabetes mellitus without complications Medications: New glipizide ER 2.5 mg PO DAILY 90 tabs 0RF Refilled insulin glargine (Lantus Solostar U-100 Insulin) 10 units (0.1 mL) subcut QPM 90 days 9 mL 1RF E11.65 - Type 2 diabetes mellitus with hyperglycemia dulaglutide (Trulicity) 3 mg (0.5 mL) subcut QWEEK 4 mL 0RF Discontinued glipizide ER Discontinued Reason: Doctor's Order 10 mg PO DAILY 90 days 90 tabs 1RF Patient Instructions: Continue Lantus 10 units daily. Continue Trulicity 3 mg once weekly. Start Glipizide 2.5 mg 1 tablet every morning with food. If you experience low blood sugar, treat this by eating a chewable fruit candy like skittles or jelly beans (about 8 pieces), 4 ounces (1/2 cup) of fruit juice (not diet), 1 tablespoon of honey or 4 glucose tablets. If your blood sugar is under 55, take double the amount of one of the above. Recheck your blood sugar in 15 minutes. Contin?e con Lantus 10 unidades diarias. Contin?e con Trulicity 3 mg ashvin vez a la semana. Comience con Glipizida 2.5 mg, 1 tableta cada ma?anabela con las comidas. Si experimenta niveles bajos de az?car en la deb, tr?telo con un caramelo masticable de fruta rosenda Skittles o Jelly Beans (aproximadamente 8 piezas), 113 ml (1/2 taza) de jugo de fruta (no diet?kayleen), 1 cucharada de miel o 4 tabletas de glucosa. Si denson nivel de az?car en la deb es inferior a 55, tome el doble de la dosis de adrian de los medicamentos mencionados. Vuelva a medir denson nivel de az?car en la deb en 15 minutos. Coding Level of Care Code Est Pt Level 4 (19637) Diagnoses Uncontrolled type 2 diabetes mellitus with hyperglycemia, with long-term current use of insulin E11.65; Z79.4 Diabetic nephropathy associated with type 2 diabetes mellitus E11.21 CPT Codes Details - CPT: 86826 - Glucose monitoring, continuous-physician I&R ([id number])
[2025-01-04 10:11] VITALS: BP 126/58; PULSE 87; O2SAT 98; BMI 26.9
[2025-01-04 10:22] LABS: Glucose, Whole Blood 119 mg/dL (60-115)
--- OUTSIDE RECORDS SUMMARY | 2025-01-04 11:12 | XMS_ITS | Clinical Summary ---
Author Organization [facility] [address] [facility] Address [address] [place] [address] Phone Care Team Providers Care Environmental Services Associate Name Role Phone Anabela Jin MD [...] urine, random (01/15/2024 9:09 AM EDT) Pathologist [facility] Creatinine, Random Urine 166 20 - 275 [...] Comment Performing Lab: ?Site ID: [id number] ?Name: [facility] ?Address: [address] [place] [id number] ?Director: Robbin Monroy M.D. Jewell Estrada APRN URINE ORDERABLES Final Result [facility] [address] [place] [address] * (ABNORMAL) Lipid panel with reflex to direct LDL (Q) (12/18/2023 11:43 AM EDT) [facility] Cholesterol, Total 284(H) <200 mg/dL [facility] [...] LDL-C. Wade VARGAS et al. MAXIMILIANO. 2013;310(19): 0322-8157 (http://education.[email or web address]/YVX772) Chol/HDL Ratio 5.7(H) <5.0 (calc) [facility] [...] Comment Performing Lab: ?Site ID: [id number] ?Name: [facility] ?Address: [address] [place] [id number] ?Director: Robbin Mornoy M.D. Jewell Estrada APRN LAB BLOOD ORDERABLES Final Re sult [facility] [address] [place] [address] * POCT glycosylated hemoglobin (HgbA1c), total (25739) (12/18/2023 9:13 AM EDT) Hemoglobin A1C, POC 11.3 4.0 - 6.0 % [facility] Test Lot Number [id number] [facility] Test Lot Exp Date 09/08/25 Date Format: MM/DD/YYYY [facility] 12/18/2023 9:13 AM EDT Jewell Estrada APRN POINT OF CARE TEST ORDERABLES Final Result Performing Organization Address [facility] Co de Phone Number [facility] from Last 3 Months or Most Recently Relevant to Health Maintenance Insurance MEDICARE [id number] MEDICAID MEDICARE [id number] MEDICAID [place] [facility] [facility] MEDICARE [id number] MEDICAID Care Teams Environmental Services Associate Relationship Specialty Start Date End Date Anabela Jin MD [address] [place] [address] [place] [phone] PCP - General Internal Medicine 11/24/23
== END 2025-01-04 11:04 | disposition home or self-care (01) ==
LOC: HO.ENCR 09:54
PROVIDERS: PCP Internal Medicine; Visit Provider Physician Assistant Medical
DX: E11.65 Type 2 diabetes mellitus with hyperglycemia (principal); Z79.4 Long term (current) use of insulin; E11.21 Type 2 diabetes mellitus with diabetic nephropathy

== ENCOUNTER → 2025-01-04 09:53 | Outpatient (BNVA) | payer MEDICARE, MEDICAID, SELFPAY | PROVIDERS: PCP Internal Medicine; Visit Provider Physician Assistant Medical | DX: E11.65 Type 2 diabetes mellitus with hyperglycemia (principal); E11.21 Type 2 diabetes mellitus with diabetic nephropathy; Z79.4 Long term (current) use of insulin | CPT/HCPCS: 82947; 83036; 99212 ==

== ENCOUNTER → 2025-01-07 07:04 | Outpatient (BNV) | payer MEDICARE, MEDICAID, SELFPAY | PROVIDERS: Emergency Provider Emergency Medicine; PCP Internal Medicine; Visit Provider Radiology Diagnostic Radiology | DX: R06.00 Dyspnea, unspecified (principal) | CPT/HCPCS: 71045; 71275 ==

== ENCOUNTER 2025-01-07 07:05 | Emergency (ER) | payer MEDICARE, MEDICAID, SELFPAY ==
--- NOTE | 2025-01-07 | ECG_ITS ---
Test Reason : CHEST PAIN Blood Pressure : */* mmHG Vent. Rate : 103 BPM Atrial Rate : 103 BPM P-R Int : 170 ms QRS Dur : 66 ms QT Int : 336 ms P-R-T Axes : 89 11 31 degrees QTcB Int : 440 ms Sinus tachycardia Nonspecific T wave abnormality Abnormal ECG When compared with ECG of 17-Dec-2024 08:16, No significant change was found Referred By: Generic ED Physician Electronically Signed By: MALISSA BLANCO MD
--- NOTE | ~2025-01-07 | XR_ITS ---
EXAMINATION: XR CHEST CLINICAL INFORMATION: dyspnea COMPARISON: 12/23/2024, 12/17/2024. TECHNIQUE: Frontal view of the chest was obtained. FINDINGS: Borderline cardiac enlargement. Mediastinal hilar contours appear normal. Aortic mural calcifications. The lungs appear clear bilaterally. No pneumothorax or effusion. No focal osseous or soft tissue abnormality. Suspect there is mild calcific tendinopathy of both rotator cuffs. There are cholecystectomy clips. XR/XR chest 1V IMPRESSION: No active pulmonary disease. Electronically signed by: Robbi Sadler MD 01/07/2025 08:18 AM EDT
--- NOTE | ~2025-01-07 | CT_ITS ---
EXAMINATION: CT ANGIOGRAM CHEST CLINICAL INFORMATION: Dyspnea, rule out PE. COMPARISON: No prior chest CT. TECHNIQUE: Multiple axial images were obtained through the chest after the administration of 50 mL of Omnipaque 350 intravenous contrast. Extensive vascular post-processing including two-dimensional and three-dimensional reformatted images were created and reviewed on an independent workstation. This CT examination was performed using dose optimization techniques as appropriate, variously including the following: *Automated exposure control *Adjustment of mA and/or kV according to patient size (this includes techniques or standardized protocols for targeted exams where dose is matched to indication/reason for exam; i.e. extremities or head) *Use of iterative reconstruction technique FINDINGS: VASCULAR: Bolus opacification of the main pulmonary arteries is adequate. There is mild respiratory motion limitation in the more peripheral pulmonary arteries. There is no definite pulmonary embolus identified. The main pulmonary artery is normal in size. The aorta is mildly calcified, but normal in contour and caliber. There is calcification of the aortic annulus and aortic valve. There is mild cardiac enlargement. There is no pericardial effusion. There is no right heart strain identified. There is no reflux of contrast into the IVC. The great vessels are patent. There is a mild stenosis of the left subclavian artery at the origin due to calcified plaque. LUNGS: There is mild interstitial pulmonary edema with small layering effusion present. There is smooth interlobular septal thickening with lower lobe predominance. There is no pneumonic consolidation, or abnormal groundglass opacity. There are small layering right greater than left neural effusions. There is no gross pulmonary nodule allowing for respiratory motion artifact. There is no evidence of interstitial lung disease. There is no pneumothorax. MEDIASTINUM: There is no adenopathy or mass. Thyroid demonstrates a 6 mm calcification in the left lobe. Thyroid otherwise normal. Mildly patulous esophagus noted, nonspecific. CHEST WALL: No masses or abnormal lymph nodes. IMAGED UPPER ABDOMINAL CONTENTS: There is mild hepatomegaly. There is diffuse fatty infiltration of the liver. There is no suspicious liver lesion identified. There is a probable small hiatus hernia at the GE junction. OSSEOUS STRUCTURES: There are mild degenerative changes of the spine. There is no suspicious lytic or blastic bone lesion. CT/CT angio chest PE protocol IMPRESSION: 1. There is no evidence of pulmonary embolism and there is no evidence of acute aortic syndrome or aneurysm. 2. There is mild interstitial pulmonary edema with small layering pleural effusions. There is no pneumonia identified. 3. There is mild cardiac enlargement. There is calcification of the aortic annulus and aortic valve. This could indicate aortic stenosis. Electronically signed by: Robbi Sadler MD 01/07/2025 09:20 AM EDT
[2025-01-07 07:07] VITALS: BP 135/73; PULSE 107; RESP 18; TEMP 36.8; O2SAT 96; BMI 30.7
--- NOTE | 2025-01-07 07:26 | ED_ITS ---
HPI - SOB/Dyspnea General Chief Complaint: Dyspnea Stated Complaint: Asthma Time Seen by Provider: 01/07/25 07:22 Source: patient and site interpreter Mode of arrival: ambulatory Limitations: no limitations History of Present Illness ED Provider: HPI Narrative: 69-year-old female presenting with the daughter, with continued symptoms of cough and wheezing, there were evaluated by me few weeks ago with similar symptoms and stated that the medications as prescribed Tessalon Perles and steroids really helped but then when they ran out few days later the symptoms returned. No fevers or chills no hemoptysis, does have some lower extremity edema. No ongoing chest pain no exertional dyspnea his symptoms seem to be worse at night. MD elicited complaint: shortness of breath Related Data Home Medications ?Medication ?Instructions ?Recorded ?Confirmed chlorthalidone 25 mg tablet 25 mg PO DAILY 01/23/24 01/04/25 aspirin 81 mg tablet,delayed 81 mg PO DAILY 01/28/24 01/04/25 release (Adult Low Dose Aspirin) Previous Rx's ?Medication ?Instructions ?Recorded 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 meter (FreeStyle #1 ea 11/15/20 Lite Meter kit) lancets 28 gauge (FreeStyle #100 ea 11/15/20 Lancets) wheelchair #1 ea 11/15/20 adhesive tape 1 X 10 yard #1 ea 08/09/21 (Band-Aid Paper Tape) gauze bandage 4 X 4 (Band-Aid #1,200 ea 08/09/21 Gauze Pads) blood sugar diagnostic (FreeStyle #100 ea 07/12/22 Lite Strips) personal wipes #200 ea 10/25/22 cholecalciferol (vitamin D3) 25 25 mcg PO DAILY #90 caps 03/04/23 mcg (1,000 unit) capsule acetaminophen 325 mg tablet 325 mg PO QID PRN pain #45 tabs 03/16/23 (Tylenol) loperamide 2 mg capsule (Imodium 2 mg PO BID loose stool #60 caps 05/14/23 A-D) tramadol 50 mg tablet 50 mg PO BID PRN pain 30 days #60 06/17/23 tabs pen needle, diabetic 31 gauge x #100 ea 02/04/2412/10 (Comfort EZ Pen [place]) sennosides 8.6 mg tablet (Senna 8.6 mg PO BEDTIME #60 tabs 02/13/24 Laxative) dicyclomine 20 mg tablet 20 mg PO QID 30 days #120 tabs 02/20/24 metoclopramide HCl 10 mg tablet 10 mg PO QIDACHS #120 tabs 02/20/24 (Reglan) commode #1 ea 03/15/24 Shower Chair #1 ea 04/28/24 walker with seat #1 ea 04/28/24 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,rehab therapist,cont #1 ea 05/04/24 (FreeStyle Stephon 3 [place]) glucose 4 gram chewable tablet 16 g (4 x 4 gram) PO Q15M PRN 05/04/24 (Dex4 Glucose) hypoglycemia #60 tabs amlodipine 10 mg tablet 10 mg PO DAILY 90 days #90 tabs 05/26/24 simethicone 180 mg capsule (Gas 180 mg PO BID PRN abdominal 05/26/24 Relief (simethicone)) distention 90 days #180 caps 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 sensor (FreeStyle #2 ea 05/27/24 Stephon 3 Sensor device) 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 sensor (FreeStyle #2 ea 06/10/24 Stephon 3 Plus Sensor device) ezetimibe 10 mg tablet 10 mg PO DAILY 90 days #90 tabs 06/15/24 ferrous sulfate 325 mg (65 mg 325 mg PO DAILY 90 days #90 tabs 07/04/24 iron) tablet lactulose 10 gram/15 mL oral 10 g (15 mL) PO BEDTIME PRN 07/19/24 solution constipation 30 days #237 mL atorvastatin 40 mg tablet 40 mg PO DAILY 90 days #90 tabs 08/16/24 acetaminophen 500 mg capsule 500 mg PO Q6H PRN fever #20 caps 09/08/24 omega-3 fatty acids-fish oil 300 1 cap PO BID #60 caps 11/24/24 mg-1,000 mg capsule sucralfate 100 mg/mL oral 10 ml PO QIDACHS #1,000 mL 11/30/24 suspension (Carafate) azithromycin 250 mg tablet See Rx Instructions PO .COMPLEX #6 12/13/24 tabs miscellaneous medical supply #3 ea 12/15/24 Dexilant 60 mg capsule, delayed 60 mg PO DAILY #30 caps 12/23/24 release (dexlansoprazole) adult diapers pull-ups #120 ea 12/23/24 furosemide 20 mg tablet (Lasix) 20 mg PO DAILY PRN edema 30 days 12/23/24 #20 tabs glipizide 2.5 mg tablet, extended 2.5 mg PO DAILY #90 tabs 01/04/25 release 24 hr insulin glargine 100 unit/mL (3 10 unit (0.1 mL) subcut QPM #15 mL 01/04/25 mL) subcutaneous pen (Lantus Solostar U-100 Insulin) dulaglutide 3 mg/0.5 mL 3 mg (0.5 mL) subcut QWEEK #4 mL 01/05/25 subcutaneous pen injector (Trulicity) fluticasone propionate 50 1 spray intranasal DAILY #16 grams 01/07/25 mcg/actuation nasal spray,suspension (Flonase Allergy Relief) furosemide 40 mg tablet 40 mg PO DAILY #7 tabs 01/07/25 Allergies Allergy/AdvReac Type Severity Reaction Status Date / Time lisinopril Allergy Severe Swelling Verified 01/07/25 07:17 metformin Allergy Intermediate Intolerance, Verified 01/07/25 07:17 chest pain, high BP, diarrhea pantoprazole Allergy Intermediate rash Verified 01/07/25 07:17 quetiapine Allergy Intermediate chest pain Verified 01/07/25 07:17 empagliflozin AdvReac Intermediate uti Verified 01/07/25 07:17 [From Jardiance] orange juice Allergy Intermediate gerd Uncoded 01/07/25 07:17 Review of Systems 2 Constitutional: Constitutional: Reports as per [facility] Past Medical History Medical History (Updated 01/07/25 @ 09:33 by Aryan Santiago DO) Diabetes mellitus Dysuria Urinary frequency Aortic stenosis Uncontrolled type 2 diabetes mellitus with hyperglycemia, with long-term current use of insulin Shortness of breath Chest pain Fissure in skin of foot Impacted cerumen of left ear Dyspepsia Cyst of skin Left shoulder pain Hospital discharge follow-up Medicare annual wellness visit, subsequent Cellulitis of left leg Dementia Retinitis pigmentosa of both eyes GERD (gastroesophageal reflux disease) Obesity (BMI 30-39.9) Vitamin D deficiency Dyslipidemia Hypertension Diabetic polyneuropathy associated with type 2 diabetes mellitus Diabetic nephropathy associated with type 2 diabetes mellitus Diabetes type 2, uncontrolled Surgical History History of esophagogastroduodenoscopy (EGD) H/O colonoscopy Hx of cholecystectomy Hx of tubal ligation Hx of hernia repair Family History Family History Father No problems noted. Mother Heart disease HTN (hypertension) Sister Pre-diabetes Brother Leukemia Son In good health Daughter In good health Daughter In good health Social History Social History Household Members: Family Housing: Apartment Alcohol intake: never Patient Tobacco Use Status: Never used Tobacco Smoked in Last 30 Days: No e-Cigarette/Vaping Use: Never Used Second Hand Smoke Exposure: No Use of substances other than those prescribed or required for medical reasons: No Advance Directives: No Advance Directives Information Provided: Yes service: No Current occupational status: disabled Cognitive needs: No Hearing needs: No Vision needs: No Physical Exam 2 Vital Signs: Vital Signs: Last Vital Signs Temp 98.4 F 01/07/25 08:00 Pulse 98 01/07/25 08:00 Resp 20 01/07/25 08:00 BP 141/85 H 01/07/25 08:00 Pulse Ox 100 01/07/25 08:00 O2 Del Method Room Air 01/07/25 08:00 BMI result Body Mass Index 30.7 Const: Other: * Gen: ?Overall well-appearing patient * HEENT: Uvula midline, no exudates * Neck: Supple, no LAD * CV: RRR, no obvious murmurs appreciated * Resp: ?No wheezing rales rhonchi no stridor moving air well * Abd: ?Bowel sounds are present, no tenderness no rebound no rigidity * MSK: FROM, strength 5/5 all extremities * Skin: Warm, dry, intact, 2+ pitting edema bilateral lower extremities * Neuro: ?Alert and oriented x3, moving upper and lower extremities symmetrically, no obvious facial asymmetry noted Medications Administered Discontinued Medications Generic Name Dose Route Start Last Admin Trade Name Freq PRN Reason Stop Dose Admin Iohexol 100 ml 01/07/25 08:59 01/07/25 09:00 Iohexol 350 Mg/Ml 100 Ml Infus..Btl IV 01/07/25 09:00 65 ml ONCE ONE Administration Medical Decision Making Medical Decision Making MDM Narrative: Re presenting with cough and wheezing I suspect this may be post nasal drip however at this point we will obtain CT shows slightly tachycardic, she did have small pleural effusion but no evidence for CHF either on exam during my last evaluation or today's evaluation, not wheezing at this time, but postnasal drip and CHF as well as asthma all cause wheezing, there is some lower extremity edema that may be dependent leg edema we will expand workup to include for CHF and PE with a CTA and underlying infectious etiology not picked up on chest x- rays, less likely pneumothorax this is a longstanding issue, or un- resolving pneumonia. Differential Diagnosis Differential Diagnoses: The differential diagnosis associated with the presentation includes CHF, COPD exacerbation, pneumonia, pneumothorax, ACS, PE, Admission/Observation Consideration of admission/observation: Escalation of care including admission/observation considered Lab Data [facility] Lab Attestation statement: I reviewed the patient's lab results. 01/07/25 07:24 01/07/25 07:24 Labs: Lab Results 01/07/25 Range/Units 07:24 WBC 5.7 (4.8-10.8) X10*3/uL RBC 4.44 (4.20-5.50) X10*6/uL Hgb 11.3 L (12.0-16.0) g/dl Hct 34.7 L (37.0-47.0) % MCV 78.2 L (80.0-98.0) fL MCH 25.5 L (27.0-33.0) pg MCHC 32.6 (31.0-35.0) g/dl RDW 14.2 (11.0-16.0) % Plt Count 127 L D (160-400) X10*3/uL MPV 11.1 (9.4-12.3) fL Immature Gran % (Auto) 0.4 (0.0-0.4) % Neut % (Auto) 71.5 (45-73) % Lymph % (Auto) 17.2 L (20-40) % [place] % (Auto) 6.7 (2-11) % Eos % (Auto) 4.0 (0-4) % Baso % (Auto) 0.2 (0-2) % Lymph # (Auto) 1.0 L (1.2-4.9) X10*3/uL [place] # (Auto) 0.4 (0.1-1.2) X10*3/uL Eos # (Auto) 0.2 (0.0-0.4) X10*3/uL Baso # (Auto) 0.0 (0.0-0.2) X10*3/uL Abs Immat Gran (auto) 0.02 (0.00-0.03) X10*3/uL Absolute Neuts (auto) 4.1 (2.0-8.3) x10*3/uL Absolute Nucleated RBC 0.000 (0.0-0.012) X10*3/uL Nucleated RBC % (auto) 0.0 (0.0-0.2) /100WBC Sodium 143 (135-145) mmol/L Potassium 3.8 (3.3-5.1) mmol/L Chloride 110 H (96-108) mmol/L Carbon Dioxide 24 (22-29) mmol/L Anion Gap 13 (12-20) BUN 15 (9-16) mg/dL Creatinine 0.69 (0.5-1.4) mg/dL Estim Creat Clear Calc 66.9 Estimated GFR > 60 Random Glucose 153 H (60-115) mg/dL Calcium 9.6 (8.4-10.2) mg/dL Total Bilirubin 0.3 (0.0-1.0) mg/dL AST 17 (5-31) U/L ALT 22 (0-31) U/L Alkaline Phosphatase 62 (39-117) U/L B-Natriuretic Peptide 118 H (<100) pg/mL Total Protein 7.3 (6.5-8.0) g/dL Albumin 4.4 (3.5-5.0) g/dL Influenza Type A (PCR) NEGATIVE (Negative) Influenza Type B (PCR) NEGATIVE (Negative) RSV RNA Qual (PCR) NEGATIVE (Negative) SARS-CoV-2 RNA (RT-PCR) NEGATIVE (Negative) Independent Interpretation I performed an independent interpretation of an: EKG (103 sinus tachycardic, no QTC prolongation no changes suspect underlying ACS) Radiology Impression Discussion of test interpretation with radiology: I have reviewed the radiologist's reading. Radiologist Impression: CT/CT angio chest PE protocol IMPRESSION: 1. There is no evidence of pulmonary embolism and there is no evidence of acute aortic syndrome or aneurysm. 2. There is mild interstitial pulmonary edema with small layering pleural effusions. There is no pneumonia identified. 3. There is mild cardiac enlargement. There is calcification of the aortic annulus and aortic valve. This could indicate aortic stenosis Discharge Plan Discharge Clinical Impression: Cough, persistent, Mild congestive heart failure Patient Disposition: Home, Self-Care Additional Instructions: CAT scan of the chest did not reveal any blood clots or infection, there maybe very mild heart failure I am starting on furosemide 40 mg daily for the next 1 week, also Flonase as I discussed with you I believe it may also be related to postnasal drip the symptoms she is having, she needs to follow up with the primary care physician. Please make sure to call and make an appointment today. The rest of the blood work vital signs viral swab EKG has been reassuring. Prescriptions: New furosemide 40 mg tablet 40 mg PO DAILY Qty: 7 0RF fluticasone propionate [Flonase Allergy Relief] 50 mcg/actuation spray,suspension 1 spray intranasal DAILY Qty: 16 0RF Rx Instructions: administer into each nostril No Action (DME) lancets [FreeStyle Lancets] 28 gauge misc See Rx Instructions .MEDSUPPLY Qty: 100 7RF Rx Instructions: 3 times a day (DME) 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 meter [FreeStyle Lite Meter] Kit See Rx Instructions miscellaneous .MEDSUPPLY Qty: 1 0RF Rx Instructions: 3 times a day (DME) FreeStyle Lite Strips Strip See Rx Instructions .MEDSUPPLY Qty: 100 11RF Rx Instructions: 3 times a day (DME) personal wipes See Rx Instructions .Route .MEDSUPPLY Qty: 200 6RF Rx Instructions: As directed cholecalciferol (vitamin D3) 25 mcg (1,000 unit) capsule 25 mcg PO DAILY Qty: 90 0RF acetaminophen [Tylenol] 325 mg tablet 325 mg PO QID PRN (Reason: pain) Qty: 45 0RF tramadol 50 mg tablet 50 mg PO BID PRN (Reason: pain) 30 Days Qty: 60 0RF (DME) commode Kit See Rx Instructions .Route Qty: 1 0RF Rx Instructions: As directed (DME) walker with seat See Rx Instructions .Route .MEDSUPPLY Qty: 1 0RF Rx Instructions: As directed (DME) Shower Chair Misc See Rx Instructions .Route Qty: 1 0RF Rx Instructions: As directed simethicone [Gas Relief (simethicone)] 180 mg capsule 180 mg PO BID PRN (Reason: abdominal distention) 90 Days Qty: 180 1RF amlodipine 10 mg tablet 10 mg PO DAILY 90 Days Qty: 90 1RF (DME) FreeStyle Stephon 3 Sensor Device See Rx Instructions .ROUTE .MEDSUPPLY Qty: 2 11RF Rx Instructions: apply new sensor every 14 days as directed (DME) FreeStyle Stephon 3 Plus Sensor Device See Rx Instructions .ROUTE .MEDSUPPLY Qty: 2 11RF Rx Instructions: Apply 1 new sensor every 14 days as directed to monitor blood glucose continuously. ferrous sulfate 325 mg (65 mg iron) tablet 325 mg PO DAILY 90 Days Qty: 90 1RF lactulose 10 gram/15 mL solution 10 g PO BEDTIME PRN (Reason: constipation) 30 Days Qty: 237 1RF atorvastatin 40 mg tablet 40 mg PO DAILY 90 Days Qty: 90 1RF omega-3 fatty acids-fish oil 300-1,000 mg capsule 1 cap PO BID Qty: 60 2RF (DME) miscellaneous medical supply [facility] See Rx Instructions .Route Qty: 3 0RF Rx Instructions: As directed insulin glargine [Lantus Solostar U-100 Insulin] 100 unit/mL (3 mL) insulin pen 10 unit subcut QPM Qty: 15 0RF Trulicity 3 mg/0.5 mL pen injector 3 mg subcut QWEEK Qty: 4 0RF azithromycin 250 mg tablet See Rx Instructions .ROUTE .COMPLEX Qty: 6 0RF Rx Instructions: For 250 mg dose pack: take 500 mg today (day 1), then 250 mg for 4 days (days 2-5) (DME) wheelchair See Rx Instructions .Route .MEDSUPPLY Qty: 1 0RF Rx Instructions: As directed (DME) gauze bandage [Band-Aid Gauze Pads] 4 X 4 bandage See Rx Instructions .Route Qty: 1200 0RF Rx Instructions: As directed (DME) adhesive tape [Band-Aid Paper Tape] 1 X 10 -yard tape See Rx Instructions .Route Qty: 1 0RF Rx Instructions: As directed (DME) pen needle, diabetic [Comfort EZ Pen [place]] 31 gauge x 5/16 needle See Rx Instructions .Route Qty: 100 3RF Rx Instructions: Use 1 pen needle once a day sennosides [Senna Laxative] 8.6 mg tablet 8.6 mg PO BEDTIME Qty: 60 6RF (DME) FreeStyle Stephon 3 [place] Misc See Rx Instructions .ROUTE .MEDSUPPLY Qty: 1 0RF Rx Instructions: as directed glucose [Dex4 Glucose] 4 gram tablet,chewable 16 g PO Q15M PRN (Reason: hypoglycemia) Qty: 60 1RF Rx Instructions: until symptoms of low blood sugar are controlled ezetimibe 10 mg tablet 10 mg PO DAILY 90 Days Qty: 90 1RF glipizide 2.5 mg tablet extended release 24hr 2.5 mg PO DAILY Qty: 90 0RF sucralfate [Carafate] 100 mg/mL suspension 10 ml PO QIDACHS Qty: 1000 0RF loperamide [Imodium A-D] 2 mg capsule 2 mg PO BID Qty: 60 6RF chlorthalidone 25 mg tablet 25 mg PO DAILY aspirin [Adult Low Dose Aspirin] 81 mg tablet,delayed release (DR/EC) 81 mg PO DAILY metoclopramide HCl [Reglan] 10 mg tablet 10 mg PO QIDACHS Qty: 120 6RF Rx Instructions: dispense 10mg dose not 5mg dicyclomine 20 mg tablet 20 mg PO QID 30 Days Qty: 120 6RF acetaminophen 500 mg capsule 500 mg PO Q6H PRN (Reason: fever) Qty: 20 0RF dexlansoprazole [Dexilant] 60 mg capsule,biphase delayed releas 60 mg PO DAILY Qty: 30 6RF furosemide [Lasix] 20 mg tablet 20 mg PO DAILY PRN (Reason: edema) 30 Days Qty: 20 2RF (DME) adult diapers pull-ups large See Rx Instructions .Route .MEDSUPPLY Qty: 120 11RF Rx Instructions: Use 1 diaper 6 times a day Referrals: Anabela Jin MD [Primary Care Provider] - Print Language: Turkish
[2025-01-07 07:27] LABS: MANUAL DIFF FLAG NO
[2025-01-07 07:33] LABS: Basophils Percent Auto 0.2 % (0-2); Eosinophils Absolute Auto 0.2 X10*3/uL (0.0-0.4); Hematocrit 34.7 % (37.0-47.0); Hemoglobin 11.3 g/dl (12.0-16.0); Imm Gran Abs Auto 0.02 X10*3/uL (0.00-0.03); Imm Gran Pct Auto 0.4 % (0.0-0.4); Lymphocytes Percent Auto 17.2 % (20-40); Mean Corpuscular HGB Conc 32.6 g/dl (31.0-35.0); Mean Corpuscular Hemoglobin 25.5 pg (27.0-33.0); Mean Corpuscular Volume 78.2 fL (80.0-98.0); Mean Platelet Volume 11.1 fL (9.4-12.3); Monocytes Absolute Auto 0.4 X10*3/uL (0.1-1.2); Monocytes Percent Auto 6.7 % (2-11); Neutrophils Absolute Auto 4.1 x10*3/uL (2.0-8.3); Neutrophils Percent Auto 71.5 % (45-73); Platelet Count 127 X10*3/uL (160-400); Red Blood Count 4.44 X10*6/uL (4.20-5.50); Red Cell Distribution Width 14.2 % (11.0-16.0); White Blood Count 5.7 X10*3/uL (4.8-10.8)
[2025-01-07 07:44] LABS: Alanine Aminotransferase 22 U/L (0-31); Albumin Level 4.4 g/dL (3.5-5.0); Alkaline Phosphatase 62 U/L (39-117); Anion Gap 13 (12-20); Aspartate Amino Transferase 17 U/L (5-31); Bilirubin Total 0.3 mg/dL (0.0-1.0); Blood Urea Nitrogen 15 mg/dL (9-16); Calcium 9.6 mg/dL (8.4-10.2); Carbon Dioxide 24 mmol/L (22-29); Chloride 110 mmol/L (96-108); Creatinine Clr Calc Pharmacy 66.9; Estimated Glomerular Filt Rate > 60; Glucose Random 153 mg/dL (60-115); Potassium 3.8 mmol/L (3.3-5.1); Sodium 143 mmol/L (135-145); Total Protein 7.3 g/dL (6.5-8.0)
[2025-01-07 07:50] LABS: B Type Natriuretic Peptide 118 pg/mL (<100)
--- OUTSIDE RECORDS SUMMARY | 2025-01-07 07:56 | XMS_ITS | Clinical Summary ---
Author Organization [facility] [address] [facility] Address [address] [place] [address] Phone Care Team Providers Care Investigator Internal Revenue Name Role Phone Anabela Jin MD Primary [...] screening 1994 Colon cancer screening, Colonoscopy 1999 Osteoporosis screening (bone density) 2019 Hemoglobin A1C 03/19/2024 12/18/2023, 11/24/2023 Covid-19 vaccine series (2023- season) 2024 07/02/2022, 11/28/2021, 01/13/2021, Additional history exists LDL monitoring 12/17/2024 12/18/2023 Urine Microalbumin 01/14/2025 01/15/2024, 12/18/2023 Influenza vaccine 03/28/2025 04/04/2023, , 06/10/2019, Additional history exists RSV Immunization (1 - 1-dose 75+ series) 2029 Pneumococcal Vaccine (50+ years) Completed 12/07/2021, 11/15/2020, [...] urine, random (01/15/2024 9:09 AM EDT) Pathologist [facility] Creatinine, Random Urine 166 20 - 275 [...] Comment Performing Lab: ?Site ID: [id number] ?Name: [facility] ?Address: [address] [place] [id number] ?Director: Robbin Monroy M.D. Jewell Estrada APRN URINE ORDERABLES Final Result [facility] [address] * (ABNORMAL) Lipid panel with reflex to direct LDL (Q) (12/18/2023 11:43 AM EDT) [facility] Cholesterol, Total 284(H) <200 mg/dL [facility] [...] LDL-C. Wade VARGAS et al. MAXIMILIANO. 2013;310(19): 1751-4084 (http://education.[email or web address]/faq/ZAB395) Chol/HDL Ratio 5.7(H) <5.0 (calc) [facility] [...] Comment Performing Lab: ?Site ID: [id number] ?Name: [facility] ?Address: [address] [place] [id number] ?Director: Robbin Monroy M.D. Jewell Estrada APRN LAB BLOOD ORDERABLES Final Re sult [facility] [address] * POCT glycosylated hemoglobin (HgbA1c), total (39229) (12/18/2023 9:13 AM EDT) Hemoglobin A1C, POC 11.3 4.0 - 6.0 % [facility] Test Lot Number [id number] [facility] Test Lot Exp Date 09/08/25 Date Format: MM/DD/YYYY [facility] 12/18/2023 9:13 AM EDT Jewell Estrada APRN POINT OF CARE TEST ORDERABLES Final Result Performing Organization Address [facility] Co de Phone Number [facility] from Last 3 Months or Most Recently Relevant to Health Maintenance Insurance MEDICARE [id number] MEDICAID MEDICARE [id number] [facility]ICA[place] [facility] [place] [id number] MEDICAID [place] [facility] MEDICARE [id number] MEDICAID Care Teams Investigator Internal Revenue Relationship Specialty Start Date End Date Anabela Jin MD [address] [place] [address] [place] [id number] PCP - General Internal Medicine 11/24/23
[2025-01-07 08:00] VITALS: BP 141/85; PULSE 98; RESP 20; TEMP 36.9; O2SAT 100
[2025-01-07 08:21] LABS: Influenza A PCR NEGATIVE (Negative); Influenza B PCR NEGATIVE (Negative); Resp Syncy Virus RNA Qual PCR NEGATIVE (Negative); SARS COV2 PCR INHOUSE NEGATIVE (Negative)
[2025-01-07] MEDS: iohexoL 350 MG/ML 100 ML INFUS..BTL IV (09:00)
[2025-01-07 09:50] VITALS: BP 143/83; PULSE 100; RESP 21; TEMP 36.9; O2SAT 99
[2025-01-07 10:00] VITALS: BP 143/83; PULSE 100; RESP 21; TEMP 36.9; O2SAT 99
== END 2025-01-07 10:23 | disposition home or self-care (01) ==
PROVIDERS: Emergency Provider Emergency Medicine; PCP Internal Medicine
DX: I11.0 Hypertensive heart disease with heart failure (principal); I50.9 Heart failure, unspecified; R05.9 Cough, unspecified; R07.9 Chest pain, unspecified; R06.00 Dyspnea, unspecified; R06.2 Wheezing; R00.0 Tachycardia, unspecified; Z79.899 Other long term (current) drug therapy
CPT/HCPCS: 0241U; 36415; 71045; 71275; 80053; 83880; 85025; 93005; 99284; Q9967

== ENCOUNTER → 2025-01-07 07:36 | Outpatient (BNV) | payer MEDICARE, MEDICAID, SELFPAY | PROVIDERS: Emergency Provider Emergency Medicine; PCP Internal Medicine; Visit Provider Internal Medicine Cardiovascular Disease | DX: R00.0 Tachycardia, unspecified (principal) | CPT/HCPCS: 93010 ==

== ENCOUNTER → 2025-03-10 10:52 | Outpatient (REF) | payer MEDICARE, MEDICAID, SELFPAY ==
--- NOTE | 2025-03-10 10:56 | CA_ITS ---
Transthoracic Echocardiogram Patient (Last, First, Middle): Annette Mills, Gender: Female Date of : 1955 Age: 69 Procedure Date: 03/10/2025 Procedure Type: Transthoracic Echocardiogram Location: OP Height: 157. cm Weight: 69.85 kg BSA: 1.71 m2 Heart Rate: 93 bpm BP: 128 / 70 mmHg Mechanical Service Technician: ELIZABETH Berry MD: [facility] ATTENDANT-C Chief Nuclear Medicine Technologist: Lacho Hart MD Symptoms: I35.0 - Nonrheumatic aortic (valve) stenosis Study Quality: Fair ECG Rhythm: Tachycardia Conclusions: - 1. Progressive calcific aortic stenosis with early severe aortic stenosis 2. Low normal LV ejection fraction 50-55% with impaired relaxation filling pattern 3. Normal RV systolic pressure with mildly elevated right atrial pressures 4. Upper limits of normal ascending aortic size 5. No pericardial effusion Findings Left Ventricle Normal left ventricular cavity size. There is normal left ventricular wall thickness. The left ventricular systolic function is low normal. The visually estimated ejection fraction is between 50-55%. Spectral Doppler is indicative of an impaired relaxation filling pattern. E/E prime ratio is between 8 and 15 consistent with indeterminate filling pressures. Right Ventricle Normal right ventricular cavity size and systolic function. Atria The left atrium is likely dilated. Interatrial shunt cannot be excluded. The right atrium is normal in size. Aortic Valve There is moderate calcification of the aortic valve. There is moderate thickening of the aortic valve. There is severe aortic valve stenosis. There is no aortic valve regurgitation. Mitral Valve There is mild anterior and posterior mitral leaflet thickening. There is trace mitral valve regurgitation. There is no mitral valve stenosis. Pulmonic Valve The pulmonic valve was not well visualized. Tricuspid Valve Normal tricuspid valve structure. The right ventricular systolic pressure is normal. The right ventricular systolic pressure is 29 mmHg. Mildly elevated right atrial pressure. There is no evidence of pulmonary hypertension. Great Vessels There is no dilatation of the ascending aorta measuring 3.60 cm. Venous The inferior vena cava is normal in size and collapses less than 50% with inspiration. Pericardium/Pleural There is no evidence of pericardial effusion. Prior Study Comparison Changes noted compared to prior study dated: 03/11/2024. progressive aortic stenosis with increase in mean gradient as well as decreasing dimensionless index suggestive of early severe aortic stenosis. Clinical correlation suggested and may repeat echo in 6 months Measurements 2D Linear Measurements IVSd: 1.15 0.6-0.9/0.6-1.0 cm LVIDd: 3.28 3.9-5.3/4.2-5.9 cm LVIDd Index: 1.92 2.4-3.2/2.2-3.1 cm/m2 LVIDs: 2.46 2.0-3.6 cm LVPWd: 1.02 0.7-1.1 cm LA Diam: 3.20 2.7-3.8/3.0-4.0 cm LAIDs Index: 1.87 1.5-2.3 cm/m2 LV Mass: 131.65 67-162/88-224 g LV Mass Index: 76.99 43-95/49-115 g/m2 LVOT Diam: 1.90 3.0+(-)1.3 cm 2D Systolic Function EF 4C: 52.30 >55% EF 2C: 59.80 >55% EF BiP: 54.20 >55% Mitral Valve MV Pk E: 0.94 MV PK A: 0.93 MV Decel Time: 255.00 E/A: 1.00 E'Lateral: 8.05 E'Medial: 5.55 E/E' Med: 16.90 E/E' Lat: 11.70 PHT: 75.00 MVA PHT: 2.93 Decel [place]: 3.68 Aortic Valve AoV Pk Emery: 3.58 AoV Mn Emery: 2.77 AoV VTI: 0.79 AoV Pk Grad: 51.00 Aov Mn Grad: 34.00 HAILY Cont.VTI: 0.71 LVOT LVOT Pk Emery: 0.93 LVOT Mn Emery: 0.71 LVOT VTI: 0.20 LVOT Pk Grad: 3.00 LVOT Mn Grad: 2.00 LVOT Diam: 1.90 LVOT Area: 2.84 Diastolic Function MV Pk E: 0.94 MV Pk A: 0.93 E/A: 1.00 E'Medial: 5.55 E/E' Med: 16.90 E' Laterial: 8.05 E/E' Lat: 11.70 Right Ventricle TAPSE (mm): 19.10 TVS' Emery: 11.30 Tricuspid Valve TR Pk Emery: 2.31 TR Pk Grad: 21.00 RA Press: 8.00 RVSP: 29.00 Great Vessels Aorta Sinus of Valsalva: 2.80 2.0-3.5 cm Ao Asc: 3.60 2.1-3.4 cm Ao Arch: 3.30 Pulmonary Valve PV Pk Emery: 1.41 Peak PV Grad: 8.00 Updated in Other Vendor System with Status of Final Lacho Hart MD electronically signed on 03/10/2025 4:54:46 PM with status of Final
--- OUTSIDE RECORDS SUMMARY | 2025-03-10 12:06 | XMS_ITS | Clinical Summary ---
Author Organization [employer] Address [address] [facility] 7t [place] [address] Care Team Providers Care Staff Cytotechnologist Name Role Phone Unavailable Primary Care Provider [...] 01/13/2021, Additional history exists Influenza Vaccine (#1) 2025 , 07/02/2022, 06/10/2019, Additional history exists RSV [...] patient's age to complete this topic Insurance [facility] STANDARD MEDICARE Member Subscriber Plan / Payer ([facility] 07/15/2022-Present) Name:Annette Mills Member ID:[id number] Relation to Subscriber:Self Name:Annette Mills Subscriber ID:[id number] Payer ID:STATE Group ID:Not on file Type:Medicare Address: [facility] [place] [phone]
--- OUTSIDE RECORDS SUMMARY | 2025-03-10 12:06 | XMS_ITS | Clinical Summary ---
Author Organization [facility] Address [address] [place] [address] Care Team Providers Care Fastener Technologist Name Role Phone Anabela Jin MD Primary Care Provider [phone] Allergies Active Allergy Reactions Criticality Noted Date [...] 95 02/17/2021 1:15 PM EDT Temperature 36.7 C (98.1 F) 02/17/2021 12:50 PM EDT Respiratory Rate 16 02/17/2021 12:50 PM EDT [...] (Females,Ages 65 and older) 2019 COVID-19 Vaccine ( - 2023-2 5 season) 2024 01/13/2021, 12/23/2020 Influenza Vaccine 02/25/2025 Hepatitis B Vaccines Aged Out No long er eligible based on patient's age to complete this topic Insurance [facility] [address] MEDICARE PART A & B Care Teams Fastener Technologist Relationship Specialty Start Date End Date Anabela Jin MD [address] [place] [address] PCP - General Family Medicine 02/17/21
--- OUTSIDE RECORDS SUMMARY | 2025-03-10 12:06 | XMS_ITS ---
Author Name [facility] Organization Unknown Results Test Name/Text Value Interpretation Date Range Source Hgb A1c MFr Bld 14.0 % Above high normal 11/25/2023 4 - 5 .6 [facility] BKR ESTIMATED AVERAGE GLUCOSE 355.0 mg/dL Normal 11/25/2023 [facility] BUN/Creat SerPl 29.1 Above high normal 11/24/2023 8 - 2 3 [facility] GFR/BSA.pred SerPlBld SAL-BWF-EzARdh >60.0 mL/min/1.73m2 Normal 11/24/2023 - [facility] Sodium SerPl-sCnc 136.0 mmol/L Normal 11/24/2023 136 - 14 4 [facility] Calcium SerPl-mCnc 10.1 mg/dL Normal 11/24/2023 8.8 - 10. 2 [facility] Anion Gap3 SerPl-sCnc 10.0 Normal 11/24/2023 7 - 17 [facility] Glucose SerPl-mCnc 406.0 mg/dL Critically high 11/24/2023 70 - 100 [facility] BUN SerPl-mCnc 16.0 mg/dL Normal 11/24/2023 8 - 23 [facility] HCO3 SerPl-sCnc 29.0 mmol/L Normal 11/24/2023 20 - 30 [facility] Potassium SerPl-sCnc 4.6 mmol/L Normal 11/24/2023 3.3 - 5 .3 [facility] Creat SerPl-mCnc 0.55 mg/dL Normal 11/24/2023 0.4 - 1.3 [facility] Chloride SerPl-sCnc 97.0 mmol/L Below low normal 11/24/2023 98 - 107 [facility] AST SerPl w P-5'-P-cCnc 15.0 U/L Normal 11/24/2023 10 - 35 [facility] Albumin SerPl BCG-mCnc 4.4 g/dL Normal 11/24/2023 3.6 - 5.1 [facility] ALP SerPl-cCnc 96.0 U/L Normal 11/24/2023 9 - 122 [facility] Globulin Plas-mCnc 3.7 g/dL Normal 11/24/2023 2 - 3.9 [facility] Bilirub Direct SerPl-mCnc <0.2 mg/dL Normal 11/24/2023 - [facility] Bilirub SerPl-mCnc 0.2 mg/dL Normal 11/24/2023 - [facility] ALT SerPl w/o P-5'-P-cCnc 19.0 U/L Normal 11/24/2023 10 - 35 [facility] AST/ALT SerPl-cRto 0.8 Normal 11/24/2023 - [facility] Prot SerPl-mCnc 8.1 g/dL Normal 11/24/2023 5.9 - 8.3 [facility] Albumin/Glob SerPl 1.2 Normal 11/24/2023 1 - 2.2 [facility] MCHC RBC Auto-mCnc 31.0 g/dL Normal 11/24/2023 31 - 36 [facility] MCH RBC Qn Auto 24.4 pg Below low normal 11/24/2023 27 - 3 3 [facility] Neutrophils/leuk NFr Bld Auto 71.9 % Normal 11/24/2023 39 - 72 [facility] nRBC # Bld Auto 0.0 x 1000/uL Normal 11/24/2023 0 - 1 [facility] RDW RBC Auto-Rto 13.2 % Normal 11/24/2023 11 - 15 [facility] Lymphocytes/leuk NFr Bld Auto 20.3 % Normal 11/24/2023 17 - 50 [facility] Eosinophil/leuk NFr Bld Auto 1.7 % Normal 11/24/2023 0 - 5 [facility] Monocytes/leuk NFr Bld Auto 5.3 % Normal 11/24/2023 4 - 12 [facility] MCV RBC Auto 78.7 fL Below low normal 11/24/2023 80 - 100 [facility] Basophils # Bld Auto 0.02 x 1000/uL Normal 11/24/2023 0 - 1 [facility] Hgb Bld-mCnc 12.6 g/dL Normal 11/24/2023 11.7 - 15.5 [facility] Basophils/leuk NFr Bld Auto 0.4 % Normal 11/24/2023 0 - 1.4 [facility] Eosinophil # Bld Auto 0.09 x 1000/uL Normal 11/24/2023 0 - 1 [facility] Imm Granulocytes/leuk NFr Bld Auto 0.4 % Normal 11/24/2023 0 - 1 [facility] Monocytes # Bld Auto 0.28 x 1000/uL Normal 11/24/2023 0 - 1 [facility] PMV Bld Auto 12.3 fL Above high normal 11/24/2023 8 - 12 [facility] Neutrophils # Bld Auto 3.82 x 1000/uL Normal 11/24/2023 2 - 7.6 [facility] WBC # Bld Auto 5.3 x1000/uL Normal 11/24/2023 4 - 11 [facility] nRBC/100 WBC Bld Auto-Rto 0.0 % Normal 11/24/2023 0 - 1 [facility] Imm Granulocytes # Bld Auto 0.02 x 1000/uL Normal 11/24/2023 0 - 0.3 [facility] Platelet # Bld Auto 149.0 x1000/uL Below low normal 11/24/19 24 150 - 420 [facility] RBC # Bld Auto 5.16 M/uL Normal 11/24/2023 4 - 6 [facility] Hct VFr Bld Auto 40.6 % Normal 11/24/2023 35 - 45 [facility] Lymphocytes # Bld Auto 1.08 x 1000/uL Normal 11/24/2023 0 .6 - 3.7 [facility] Encounters Encounter Type Encounter Reason Primary Diagnosis Location Date Emergency Other specified noninflammatory disorder of vulva and perineum Other specified noninflammatory disorder of vulva and perineum [facility] 11/24/2023 Care Team Organization Name Specialty Phone Email [facility]/26/[facility]23 08/03/2024 [facility] 12/20/2023 [facility] Benny Lombardi Primary Care 11/24/2023 [facility] 11/24/2023 [facility] BNENY WHITMORE Primary Care 02/17/2021 021 [facility] BENNY NORRIS Primary Care 02/17/2021 021
--- OUTSIDE RECORDS SUMMARY | 2025-03-10 12:06 | XMS_ITS | Clinical Summary ---
Author Organization [facility] [address] [facility] Address [address] [place] [address] Phone Care Team Providers Care Soccer Player Name Role Phone Anabela Jin MD Primary [...] 99 01/15/2024 1:52 PM EDT Temperature 36.9 C (98.4 F) 01/13/2024 3:38 PM EDT Respiratory Rate 16 01/13/2024 3:38 PM EDT [...] in albumin excretion as follows: Albuminuria Category Result (mg/g creatinine) Normal to Mildly increased <30 Moderately increased 30-299 Severely increased > OR = 300 The ADA recommends that at least two of three specimens collected within a 3-6 month period be abnormal before considering a patient to be within a diagnostic category. Urine 01/15/2024 9:09 AM EDT 01/15/2024 9:09 AM EDT Narrative [facility] - 01/16/2024 3:45 PM EDT FASTING:NO FASTING: NO Resulting Agency Comment Performing Lab: Site ID: [id number] Name: [facility] Address: [address] [place] [phone] Director: Robbin Monroy M.D. Jewell Estrada APRN URINE ORDERABLES Final Result [facility] [address] [place] [address] * (ABNORMAL) Lipid panel with reflex to direct LDL (Q) (12/18/2023 11:43 AM EDT) Cholesterol, Total 284(H) <200 mg/dL [facility] [...] Desirable range <100 mg/dL for primary prevention; <70 mg/dL for patients with CHD or diabetic patients with > or = 2 CHD risk factors. LDL-C is now calculated using the Wade-Leroy calculation, which is a validated novel method providing better accuracy than the Friedewald equation in the estimation of LDL-C. Wade SS et al. MAXIMILIANO. 2013;310(19): 2949-6259 (http://education.Rezolve/faq/ODH708) Chol/HDL Ratio 5.7(H) <5.0 (calc) [facility] [...] FASTING: YES Resulting Agency Comment Performing Lab: Site ID: [id number] Name: [facility] Address: [address] [place] [phone] Director: Robbin Monroy M.D. us Jewell Estrada APRN LAB BLOOD ORDERABLES Final Re sult [facility] [address] * POCT glycosylated hemoglobin (HgbA1c), total (29986) (12/18/2023 9:13 AM EDT) Hemoglobin A1C, POC 11.3 4.0 - 6.0 % [facility] Test Lot Number [id number] [facility] Test Lot Exp Date 09/08/25 Date Format: MM/DD/YYYY [facility] 12/18/2023 9:13 AM EDT Jewell Estrada APRN POINT OF CARE TEST ORDERABLES Final Result [facility] [place], [place], [facility] from Last 3 Months or Most Recently Relevant to Health Maintenance Insurance MEDICARE [id number] MEDICAID MEDICARE [id number] MEDICAID MEDICAID [place] [facility]IC[facility] [id number] MEDICAID Care Teams Soccer Player Relationship Specialty Start Date End Date Anabela Jin MD [address] [place] [address] [place] [phone] PCP - General Internal Medicine 11/24/23
--- OUTSIDE RECORDS SUMMARY | 2025-03-10 12:06 | XMS_ITS | Clinical Summary ---
Author Organization [facility] Address [address] [place] [address], [place] [address] Care Team Providers Care Lamps Tester And Inspector Name Role Phone Anabela Jin MD Primary Care Provider [phone] Allergies Active Allergy Reactions Criticality Noted Date [...] Diabetes: Hemoglobin A1C 03/19/2024 12/18/2023 Influenza Vaccine (#1) 2025 , 06/10/2019, 05/26/2018, Additional history exists Pneumococcal Vaccine: 50+ Years Completed 12/07/2021, 11/15/2020, 11/23/2015 Pneumococcal Vaccine: Peds (0 to 5 Years) and At-Risk Patients (6 to 49 Years) Discontinued 12/07/2021, 11/15/2020, 11/23/2015 Hepatitis B Vaccine Aged Out No longe r eligible based on patient's age to complete this topic Insurance Medicare Medicaid [place] Medicare Medicaid [place] Care Teams Lamps Tester And Inspector Relationship Specialty Start Date End Date Anabela Jin MD 2 [facility] [address] [place] [address] PCP - General Internal Medicine 09/03/21
== END ==
LOC: HO.CARD 10:52
PROVIDERS: PCP Internal Medicine; Visit Provider Nurse Practitioner Family
DX: I35.0 Nonrheumatic aortic (valve) stenosis (principal)
CPT/HCPCS: 93306

== ENCOUNTER → 2025-03-10 10:56 | Outpatient (BNV) | payer MEDICARE, MEDICAID, SELFPAY | PROVIDERS: PCP Internal Medicine; Visit Provider Internal Medicine Cardiovascular Disease | DX: I35.0 Nonrheumatic aortic (valve) stenosis (principal); I35.8 Other nonrheumatic aortic valve disorders | CPT/HCPCS: 93306 ==

== ENCOUNTER 2025-03-22 14:02 | Outpatient (REF) | payer MEDICARE, MEDICAID, SELFPAY ==
--- OUTSIDE RECORDS SUMMARY | 2025-03-22 14:59 | XMS_ITS | Clinical Summary ---
Author Organization [facility] [address] [facility] Address [address] [place] [address] Phone Care Team Providers Care Touch Up Painter Hand Name Role Phone Anabela Jin MD Primary [...] 0 11/28/2021 Cervical cancer screening Discontinued Meningococcal B Vaccine Aged Out No l [...] Comment Performing Lab: Site ID: [id number] Name: [facility] Address: [address] [place] [phone] Director: Robbin Monroy M.D. Jewell Estrada APRN URINE ORDERABLES Final Result [facility] [address] [place] [address] * (ABNORMAL) Lipid panel with reflex to [...] LDL-C. Wade SS et al. MAXIMILIANO. 2013;310(19): 5297-3899 (http://education.MashON/faq/PPF109) Chol/HDL Ratio 5.7(H) <5.0 (calc) [facility] [...] Comment Performing Lab: Site ID: [id number] Name: [facility] Address: [address] [place] [phone] Director: Robbin Monroy M.D. us Jewell Estrada APRN LAB BLOOD ORDERABLES Final Re sult [facility] [address] * POCT glycosylated hemoglobin (HgbA1c), total (26455) (12/18/2023 9:13 AM EDT) Hemoglobin A1C, POC 11.3 4.0 - 6.0 % [facility] Test Lot Number [id number] [facility] Test Lot Exp Date 09/08/25 Date Format: MM/DD/YYYY [facility] 12/18/2023 9:13 AM EDT Jewell Estrada APRN POINT OF CARE TEST ORDERABLES Final Result [facility] [place], [place], [facility] from Last 3 Months or Most Recently Relevant to Health Maintenance Insurance MEDICARE [id number] MEDICAID MEDICARE [id number] MEDICAID MEDICAID [place] [facility] [id number] MEDICAID Care Teams Touch Up Painter Hand Relationship Specialty Start Date End Date Anabela Jin MD [address] [place] [address] [place] [phone] PCP - General Internal Medicine 11/24/23
--- OUTSIDE RECORDS SUMMARY | 2025-03-22 15:00 | XMS_ITS | Encounter Summary ---
Author Organization [facility] Address [address] [place] [address] Phone -x2013 Care Team Providers Care Machine Operator Packaging Name Role Phone Anabela Jin MD Primary Care Provid er Reason for Visit * Reason Comments Medication Refill Encounter Details Date Type Department Care Team (Late st Contact Info) Description 02/25/2024 Refill [facility] [address] [place], [place] [id number] Jewell Estrada APRN [address] [place] [address] Medication Refill Social History Tobacco [...] documented as of this encounter Care Teams Machine Operator Packaging Relationship Specialty Start Date End Date Anabela Jin MD [address] [facility] [address] [place], [place] [phone] PCP - General Internal Medicine 11/24/23 documented as of this encounter
--- OUTSIDE RECORDS SUMMARY | 2025-03-22 15:00 | XMS_ITS | Clinical Summary ---
Author Organization [facility] Address [address] [place] [address], [place] [address] Care Team Providers Care Immigration Officer Name Role Phone Anabela Jin MD Primary Care Provider [phone] Allergies Active Allergy Reactions Criticality Noted Date [...] Medicaid [place] Medicare Medicaid [place] Care Teams Immigration Officer Relationship Specialty Start Date End Date Anabela Jin MD 2 [facility] [address] [place] [address] PCP - General Internal Medicine 09/03/21
--- OUTSIDE RECORDS SUMMARY | 2025-03-22 15:00 | XMS_ITS | Encounter Summary ---
Author Organization [facility] Address [address] [place] [address] Phone -x2013 Care Team Providers Care Thermo Cementing Folder Operator Name Role Phone Anabela Jin MD Primary Care Provid er Reason for Visit * Reason Comments Med Change Request Encounter Details Date Type Department Care Team (Late st Contact Info) Description 12/25/2023 [facility] [address] [place] [address] Jewell Estrada APRN [address] [place] [address] Med Change Request Social History [...] documented as of this encounter Care Teams Thermo Cementing Folder Operator Relationship Specialty Start Date End Date Anabela Jin MD [address] [place] [address] [place] [phone] PCP - General Internal Medicine 11/24/23 documented as of this encounter
--- OUTSIDE RECORDS SUMMARY | 2025-03-22 15:00 | XMS_ITS | Encounter Summary ---
Author Organization [facility] Address [address] [place] [address] Phone -x2013 Care Team Providers Care Stop Attacher Name Role Phone Anabela Jin MD Primary Care Provid er Reason for Visit * Reason Onset Date Comments Medication Problem 12/25/2023 dulaglutide 3 mg/0.5 mL PnIj Encounter Details Date Type Department Care Team (Late st Contact Info) Description 12/25/[address] [address] Anabela Jin MD [address] [place] [address] [place] [phone] Medication Problem (dulaglutide [...] 3 mg/0.5 mL PnIj Refill status: Preferred Language:Swedish Caller was aware message would be routed [...] documented as of this encounter Care Teams Stop Attacher Relationship Specialty Start Date End Date Anabela Jin MD [address] [place] [address] [place] [phone] PCP - General Internal Medicine 11/24/23 documented as of this encounter
--- OUTSIDE RECORDS SUMMARY | 2025-03-22 15:00 | XMS_ITS | Encounter Summary ---
Author Organization [facility] Address [address] [place] [address] Phone -x2013 Care Team Providers Care Grades 9 Thru 12 Visiting Teacher Name Role Phone Anabela Jin MD Primary Care Provid er Reason for Visit * Reason Comments Med Change Request Encounter Details Date Type Department Care Team (Late st Contact Info) Description 02/05/[address] [address] Jewell Estrada APRN [address] [place] [address] Med Change Request Social History [...] documented as of this encounter Care Teams Grades 9 Thru 12 Visiting Teacher Relationship Specialty Start Date End Date Anabela Jin MD [address] [place] [address] [place] [phone] PCP - General Internal Medicine 11/24/23 documented as of this encounter
--- OUTSIDE RECORDS SUMMARY | 2025-03-22 15:00 | XMS_ITS | Encounter Summary ---
Author Organization [facility] Address [address] [place] [address] Phone -x2013 Care Team Providers Care Video Game Creator Name Role Phone Anabela Jin MD Primary Care Provid er Reason for Visit * Reason Onset Date Comments Medication Problem 12/29/2023 semaglutide ( OZEMPIC) 0.25 mg or 0.5 mg (2 mg/3 mL) pen injector Advice Only 12/29/2023 Encounter Details Date Type Department Care Team ([facility] st Contact Info) Description 12/29/2023 [place] [address] Anabela Jin MD [address] [place] [address] [place] [phone] Medication Problem (semaglutide [...] James RN - 12/29/2023 4:15 PM EDT #[id number] greek interpretor Called back pt and relayed medication [...] she didn't understand the previous call with conference interpreter states line was cutting out and requesting a callback to get clarification on Rx if pt has to take .25 or 0.5mg and for how long please callback to advise Specify Name of Medication: semaglutide (OZEMPIC) 0.25 mg or 0.5 mg (2 mg/3 mL) pen injector Refill status:0 Preferred Language:greek Caller was aware message would be routed to PCP team for review and F/U. Caller made aware of form policy. Caller verbalized understating and had no further question at this time. * Telephone Encounter - Priscilla Wilson - 12/29/2023 9:14 AM EDT Reason for call:states she didn't understand the previous call with conference interpreter states line was cutting out and requesting a callback to get clarification on Rx if pt has to take .25 and for how longplease callback to advise Medication Issue/Schedule Appointment F/FU/Authorization Request: Specify Name of Medication:semaglutide (OZEMPIC) 0.25 mg or 0.5 mg (2 mg/3 mL) pen injector Refill status:0 Preferred Language:greek Caller was aware message would be routed [...] documented as of this encounter Care Teams Video Game Creator Relationship Specialty Start Date End Date Anabela Jin MD [address] [place] [address] [place] [phone] PCP - General Internal Medicine 11/24/23 documented as of this encounter
--- OUTSIDE RECORDS SUMMARY | 2025-03-22 15:00 | XMS_ITS | Clinical Summary ---
Author Organization [facility] Address [address] [place] [address] Care Team Providers Care Coal Deliverer Name Role Phone Anabela Jin MD Primary Care Provider [phone] Allergies Active Allergy Reactions Criticality Noted Date [...] patient's age to complete this topic Insurance [facility] MEDICARE PART A & B Care Teams Coal Deliverer Relationship Specialty Start Date End Date Anabela Jin MD [address] [facility] [place] [address] PCP - General Family Medicine 02/17/21
--- OUTSIDE RECORDS SUMMARY | 2025-03-22 15:00 | XMS_ITS | Encounter Summary ---
Author Organization [facility] Address [address] [place] [address] Phone -x2013 Care Team Providers Care Dry Cleaning Checker Name Role Phone Anabela Jin MD Primary Care Provid er Reason for Visit * Reason Comments Med Change Request Encounter Details Date Type Department Care Team (Late st Contact Info) Description 01/27/2024 [facility] [address] [place], [place] [phone] Jewell Estrada APRN [address] [place] [address] Med Change Request Social History [...] documented as of this encounter Care Teams Dry Cleaning Checker Relationship Specialty Start Date End Date Anabela Jin MD [address] [facility] [address] [place], [place] [phone] PCP - General Internal Medicine 11/24/23 documented as of this encounter
--- OUTSIDE RECORDS SUMMARY | 2025-03-22 15:00 | XMS_ITS | Clinical Summary ---
Author Organization [employer] Address [address] [facility] 7t [place] [address] Care Team Providers Care Fire Prevention Officer Name Role Phone Unavailable Primary Care [...] complete this topic Insurance [facility] STANDARD MEDICARE [address] [place] [phone]
== END 2025-03-22 14:03 | disposition home or self-care (01) ==
LOC: HO.MAMMO 14:02
PROVIDERS: PCP Internal Medicine; Visit Provider Internal Medicine
DX: Z12.31 Encounter for screening mammogram for malignant neoplasm of breast (principal)
CPT/HCPCS: 77063; 77067

== ENCOUNTER → 2025-03-22 14:45 | Outpatient (BNV) | payer MEDICARE, MEDICAID, SELFPAY | PROVIDERS: PCP Internal Medicine; Visit Provider Radiology Body Imaging | DX: Z12.31 Encounter for screening mammogram for malignant neoplasm of breast (principal) | CPT/HCPCS: 77063; 77067 ==

== ENCOUNTER 2025-03-24 12:59 | Outpatient (AMB) | payer MEDICARE, MEDICAID, SELFPAY ==
[2025-03-24 13:22] VITALS: BP 142/70; PULSE 97
--- NOTE | 2025-03-24 13:22 | MHC.OFFVIS ---
Vital Signs 03/24/25 13:22 Height 5 ft Weight 153 lb 14.122 oz BMI 30.0 BP 142/70 H Blood Pressure Location Rt brachial Position Sitting Pulse 97 Pulse Source Monitor Intake Visit Reasons: 1 yr f/up Occupational Therapist Per Diem Required: Yes Occupational Therapist Per Diem Language: Title Search Manager Name: voice kerr [id number] Allergies lisinopril Allergy (Severe, Verified 03/24/25 13:26) Swelling metformin Allergy (Intermediate, Verified 03/24/25 13:26) Intolerance, chest pain, high BP, diarrhea pantoprazole Allergy (Intermediate, Verified 03/24/25 13:26) rash quetiapine Allergy (Intermediate, Verified 03/24/25 13:26) chest pain empagliflozin (From Jardiance) Adverse Reaction (Intermediate, Verified 03/24/25 13:26) uti orange juice Allergy (Intermediate, Uncoded 03/24/25 13:26) gerd Medication List - Last Reconciled 03/24/25 by ELVA CruzC acetaminophen (Tylenol) 325 mg PO QID PRN acetaminophen 500 mg PO Q6H PRN adhesive tape (Band-Aid Paper Tape) As directed [adult diapers pull-ups Use 1 diaper 6 times a day] amlodipine 10 mg PO DAILY 90 days atorvastatin 40 mg PO DAILY 90 days azithromycin For 250 mg dose pack: take 500 mg today (day 1), then 250 mg for 4 days (days 2-5) benzonatate 200 mg PO TID PRN blood sugar diagnostic (FreeStyle Lite Strips) 3 times a day 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 meter (FreeStyle Lite Meter kit) 3 times a day 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 sensor (FreeStyle Stephon 3 Sensor device) apply new sensor every 14 days as directed 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 sensor (FreeStyle Stephon 3 Plus Sensor device) Apply 1 new sensor every 14 days as directed to monitor blood glucose continuously. 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,behaviorist,cont (FreeStyle Stephon 3 [place]) as directed chlorthalidone 25 mg PO DAILY cholecalciferol (vitamin D3) 25 mcg PO DAILY commode As directed [compression stockings knee high As directed] Dexilant (dexlansoprazole) 60 mg PO DAILY NS dicyclomine 20 mg PO QID 30 days dulaglutide (Trulicity) 3 mg (0.5 mL) subcut QWEEK ezetimibe 10 mg PO DAILY 90 days ferrous sulfate 325 mg PO DAILY 90 days fluticasone propionate 50 mcg/actuation (Flonase Allergy Relief) 1 spray intranasal DAILY furosemide 40 mg PO DAILY gauze bandage (Band-Aid Gauze Pads) As directed glipizide ER 2.5 mg PO DAILY glucose (Dex4 Glucose) 16 grams (4 x 4 gram) PO Q15M PRN insulin glargine (Lantus Solostar U-100 Insulin) 10 units (0.1 mL) subcut QPM lactulose 10 grams (15 mL) PO BEDTIME PRN 30 days lancets (FreeStyle Lancets) 3 times a day loperamide (Imodium A-D) 2 mg PO BID metoclopramide HCl (Reglan) 10 mg PO QIDACHS miscellaneous medical supply As directed omega-3 fatty acids-fish oil 300-1,000 mg 1 cap PO BID pen needle, diabetic (Comfort EZ Pen [place]) Use 1 pen needle once a day [personal wipes As directed] Shower Chair As directed simethicone (Gas Relief (simethicone)) 180 mg PO BID PRN 90 days sucralfate (Carafate) 10 mL PO QIDACHS tramadol 50 mg PO BID PRN 30 days [walker with seat As directed] [wheelchair As directed] HPI HPI 1 yr f/up: Details: Annette is a 69-year-old female past medical history of hypertension, hyperlipidemia, diabetes, aortic stenosis who presents for follow-up after recent echocardiogram. Today she reports that she has been doing generally well since her last visit 03/24/2024. She has been experiencing some mild ankle edema. She is taking her Lasix daily. Daughter is present and does most of the talking. Patient not reporting any shortness of breath, palpitations, lightheadedness. Vague reports of discomfort does not sound related to activity. Does have general fatigue. Is mostly sedentary but does have to climb 34 stairs to get to her 3rd floor apartment. Takes all meds as directed. [facility] Medical History Diabetes mellitus Dysuria Urinary frequency Aortic stenosis Uncontrolled type 2 diabetes mellitus with hyperglycemia, with long-term current use of insulin Shortness of breath Chest pain Fissure in skin of foot Impacted cerumen of left ear Dyspepsia Cyst of skin Left shoulder pain Hospital discharge follow-up Medicare annual wellness visit, subsequent Cellulitis of left leg Dementia Retinitis pigmentosa of both eyes GERD (gastroesophageal reflux disease) Obesity (BMI 30-39.9) Vitamin D deficiency Dyslipidemia Hypertension Diabetic polyneuropathy associated with type 2 diabetes mellitus Diabetic nephropathy associated with type 2 diabetes mellitus Diabetes type 2, uncontrolled Surgical History History of esophagogastroduodenoscopy (EGD) H/O colonoscopy Hx of cholecystectomy Hx of tubal ligation Hx of hernia repair Family History Father No problems noted. Mother Heart disease HTN (hypertension) Sister Pre-diabetes Brother Leukemia Son In good health Daughter In good health Daughter In good health Social History Household Members: Family Housing: Apartment Alcohol intake: never Patient Tobacco Use Status: Never used Tobacco e-Cigarette/Vaping Use: Never Used Second Hand Smoke Exposure: No service: No Current occupational status: disabled Cognitive needs: No Hearing needs: No Vision needs: No Review of Systems Const All systems reviewed & are unremarkable except as noted in HPI and below ENT Denies dizziness Card Denies chest pain, Denies chest pain at rest, Denies chest pain with activity, Denies rapid heart rate, Denies pedal edema, Denies edema, Reports leg edema, Denies lightheadedness, Denies palpitations, Denies dyspnea, Denies dyspnea on exertion and Denies orthopnea Resp Denies cough, Denies dyspnea and Denies dyspnea on exertion GI Denies hematochezia and Denies change in stool character Musc Denies abnormal gait, Denies limited range of motion, Denies muscle cramps, Denies muscle weakness, Denies numbness, Denies radiating pain into limb, Denies stiffness and Denies tingling Neuro Denies abnormal gait, Denies dizziness, Denies numbness and Denies tingling Endo Denies palpitations Physical Exam Vital Signs: BMI result Body Mass Index 30.0 Const General: cooperative, healthy appearing, comfortable and no acute distress Neck Neck: Yes normal visual inspection and Yes no JVD Resp Effort & Inspection: normal respiratory effort Auscultation: clear to auscultation bilaterally, no crackles, no rales, no rhonchi and no wheezes Cardio Rate: regular rate Rhythm: regular rhythm Heart sounds: S2 normal heart sound present, Murmur heart sound present (3/6 systolic murmur. second heart sound present) and no rubs Extrem Other: trace ankle edema General: Yes normal to inspection and No no pedal edema Psych Appearance: grossly normal Mental Status: mental status grossly normal Speech and movement: Normal speech and movement present Office Procedures EKG Details: Today, read by me, sinus rhythm, cant exclude prior anterior infarct, rate 97, Qtc 419ms [id number], Complete Assessment & Plan Assessment & Plan (1) Aortic stenosis: Code(s): I35.0 - Nonrheumatic aortic (valve) stenosis Category: Medical Plan: Echocardiogram 03/10/2025 showing calcific aortic stenosis, early severe , EF 50-55%, fair quality. Echo 1 year ago showed EF 65-70%, moderate to severe . Drop in EF could be technical. Nuclear stress test 03/11/2024 showed normal myocardial perfusion imaging. She does not appear fluid overloaded. No clear anginal symptoms. EKG from today shows sinus rhythm with no ischemia, rate 97. Cardinal signs of severe reviewed with her. Signs and symptoms of angina discussed. Cardiology follow-up 6 months, sooner if needed. (2) Hypertension: Code(s): I10 - Essential (primary) hypertension Category: Medical Qualifiers: Hypertension type: essential hypertension Qualified Code(s): I10 - Essential (primary) hypertension Plan: Blood pressure goal less than 130/80. Near goal at present. No med changes made. (3) Dyslipidemia: Code(s): E78.5 - Hyperlipidemia, unspecified Category: Medical Plan: [place] LDL goal less than 70 in patient with diabetes. Labs 07/02/2024 showed LDL 72. Continue atorvastatin statin and Zetia. (4) Edema: Code(s): R60.9 - Edema, unspecified Category: Medical Plan: Reports of mild ankle edema. On exam it appears trace to me today. May be related to her amlodipine use and dietary salt intake. Reviewed low-salt diet, leg elevation. Gave her a pair of compression stockings from our office stock. Instructed to call if this symptom worsens. Plan I discussed with the patient the management of her aortic valve stenosis, including regular monitoring with echocardiograms and the possibility of valve replacement if the condition worsens. We also reviewed the management of her peripheral edema with furosemide, compression stockings, and dietary modifications to reduce salt intake. I advised her to monitor her symptoms and to contact us if there is any worsening, as this may necessitate earlier intervention. Orders: Orders CA echo transthoracic complete 09/05/25 I35.0 - Nonrheumatic aortic (valve) stenosis Patient Instructions: - Take furosemide daily as prescribed. - Use compression stockings as advised. - Elevate legs to reduce swelling. - Reduce salt intake in diet. - Monitor symptoms and report any worsening. Patient was informed and verbally consented to the use of an ambient scribe for clinic note documentation during this visit. Visit time spent on chart review, interview, assessment, orders, documentation. Coding Level of Care Code Est Pt Level 4 (41212) Complex EM visit Add On G2211 Diagnoses Aortic stenosis I35.0 Essential hypertension I10 Hypertension type: essential hypertension Dyslipidemia E78.5 Edema R60.9 CPT Codes EKG - CPT: 20818-[id number], Complete ([id number]) Time Spent (min) 28
--- OUTSIDE RECORDS SUMMARY | 2025-03-24 13:37 | XMS_ITS | Encounter Summary ---
Author Organization [facility] Address [address] [place] [address] Phone -x2013 Care Team Providers Care Sales Development Executive Name Role Phone Anabela Jin MD Primary Care Provid er Reason for Visit * Reason Comments Med Change Request Encounter Details Date Type Department Care Team (Late st Contact Info) Description 12/25/2023 [facility] [address] [place] [address] Jewell Estrada APRN [address] [place] [address] Med Change Request Social History [...] as of this encounter Care Teams Sales Development Executive Relationship Specialty Start Date End Date Anabela Jin MD [address] [place] [address] [place] [phone] PCP - General Internal Medicine 11/24/23 documented as of this encounter
--- OUTSIDE RECORDS SUMMARY | 2025-03-24 13:37 | XMS_ITS | Encounter Summary ---
Author Organization [facility] Address [address] [place] [address] Phone -x2013 Care Team Providers Care Hospital Coordinator Name Role Phone Anabela Jin MD Primary Care Provid er Reason for Visit * Reason Comments Med Change Request Encounter Details Date Type Department Care Team (Late st Contact Info) Description 01/27/2024 [facility] [address] [place], [place] [phone] Jewell Estrada APRN [address] [place] [address] Med Change Request Social History [...] documented as of this encounter Care Teams Hospital Coordinator Relationship Specialty Start Date End Date Anabela Jin MD [address] [facility] [address] [place], [place] [phone] PCP - General Internal Medicine 11/24/23 documented as of this encounter
--- OUTSIDE RECORDS SUMMARY | 2025-03-24 13:37 | XMS_ITS | Clinical Summary ---
Author Organization [employer] Address [address] [facility] [address] [place] [address] Care Team Providers Care Surface Lay Out Technician Name Role Phone Unavailable Primary Care Provider [...] patient's age to complete this topic Insurance [facility] STANDARD MEDICARE Member Subscriber Plan / Payer ([facility] 07/15/2022-Present) Name:Annette Mills Member ID:[id number] Relation to Subscriber:Self Name:Annette Mills Subscriber ID:[id number] Payer ID:STATE Group ID:Not on file Type:Medicare Address: [facility] [place] [phone]
--- OUTSIDE RECORDS SUMMARY | 2025-03-24 13:37 | XMS_ITS | Clinical Summary ---
Author Organization [facility] Address [address] [place] [address], [place] [address] Care Team Providers Care Phonograph Mechanic Name Role Phone Anabela Jin MD Primary Care Provider [phone] Allergies Active Allergy Reactions Criticality Noted Date [...] [place] Care Teams Phonograph Mechanic Relationship Specialty Start Date End Date Anabela Jin MD [address] [facility] [address] [place] [address] PCP - General Internal Medicine 09/03/21
--- OUTSIDE RECORDS SUMMARY | 2025-03-24 13:37 | XMS_ITS | Clinical Summary ---
Author Organization [facility] Address [address] [place] [address] Care Team Providers Care Parts Washer Name Role Phone Anabela Jin MD Primary Care Provider [phone] Allergies Active Allergy Reactions Criticality Noted Date [...] patient's age to complete this topic Insurance [facility] MEDICARE PART A & B Care Teams Parts Washer Relationship Specialty Start Date End Date Anabela Jin MD [address] [facility] [address] [place] [phone] PCP - General Family Medicine 02/17/21
--- OUTSIDE RECORDS SUMMARY | 2025-03-24 13:37 | XMS_ITS | Clinical Summary ---
Author Organization [facility] [address] [facility] Address [address] [place] [address] Phone Care Team Providers Care Burrer Operator Name Role Phone Anabela Jin MD [...] Comment Performing Lab: Site ID: [id number] Name: [facility] Address: [address] [place] [phone] Director: Robbin Monroy M.D. Jewell Estrada APRN URINE ORDERABLES Final Result [facility] [address] [place] [address] * (ABNORMAL) Lipid panel with reflex to [...] LDL-C. Wade SS et al. MAXIMILIANO. 2013;310(19): 9970-9768 (http://education.[employer]/faq/TEC959) Chol/HDL Ratio 5.7(H) <5.0 (calc) [facility] [...] Comment Performing Lab: Site ID: [id number] Name: [facility] Address: [address] [place] [phone] Director: Robbin Monroy M.D. us Jewell Estrada APRN LAB BLOOD ORDERABLES Final Re sult [facility] [address] * POCT glycosylated hemoglobin (HgbA1c), total (32592) (12/18/2023 9:13 AM EDT) Hemoglobin A1C, POC 11.3 4.0 - 6.0 % [facility] Test Lot Number [id number] [facility] Test Lot Exp Date 09/08/25 Date Format: MM/DD/YYYY [facility] 12/18/2023 9:13 AM EDT Jewell Estrada APRN POINT OF CARE TEST ORDERABLES Final Result [facility] [place], [place], [facility] from Last 3 Months or Most Recently Relevant to Health Maintenance Insurance MEDICARE [id number] MEDICAID MEDICARE [id number] MEDICAID MEDICAID [place] [facility] [id number] MEDICAID Care Teams Burrer Operator Relationship Specialty Start Date End Date Anabela Jin MD [address] [place] [address] [place] [phone] PCP - General Internal Medicine 11/24/23
--- OUTSIDE RECORDS SUMMARY | 2025-03-24 13:37 | XMS_ITS | Encounter Summary ---
Author Organization [facility] Address [address] [place] [address] Phone -x2013 Care Team Providers Care High School French Teacher Name Role Phone Anabela Jin MD Primary Care Provid er Reason for Visit * Reason Onset Date Comments Medication Problem 12/29/2023 semaglutide ( OZEMPIC) 0.25 mg or 0.5 mg (2 mg/3 mL) pen injector Advice Only 12/29/2023 Encounter Details Date Type Department Care Team ([facility] st Contact Info) Description 12/29/2023 [place] [address] Anabela Jin MD [address] [place] [address] [place] [phone] Medication Problem (semaglutide [...] James RN - 12/29/2023 4:15 PM EDT #[id number] turkish interpretor Called back pt and relayed medication [...] she didn't understand the previous call with residential collections states line was cutting out and requesting a callback to get clarification on Rx if pt has to take .25 or 0.5mg and for how long please callback to advise Specify Name of Medication: semaglutide (OZEMPIC) 0.25 mg or 0.5 mg (2 mg/3 mL) pen injector Refill status:0 Preferred Language:turkish Caller was aware message would be routed to PCP team for review and F/U. Caller made aware of form policy. Caller verbalized understating and had no further question at this time. * Telephone Encounter - Priscilla Wilson - 12/29/2023 9:14 AM EDT Reason for call:states she didn't understand the previous call with residential collections states line was cutting out and requesting a callback to get clarification on Rx if pt has to take .25 and for how longplease callback to advise Medication Issue/Schedule Appointment F/FU/Authorization Request: Specify Name of Medication:semaglutide (OZEMPIC) 0.25 mg or 0.5 mg (2 mg/3 mL) pen injector Refill status:0 Preferred Language:turkish Caller was aware message would be routed [...] documented as of this encounter Care Teams High School French Teacher Relationship Specialty Start Date End Date Anabela Jin MD [address] [place] [address] [place] [phone] PCP - General Internal Medicine 11/24/23 documented as of this encounter
--- OUTSIDE RECORDS SUMMARY | 2025-03-24 13:38 | XMS_ITS | Encounter Summary ---
Author Organization [facility] Address [address] [place] [address] Phone -x2013 Care Team Providers Care Contractor Broomcorn Threshing Name Role Phone Anabela Jin MD Primary Care Provid er Reason for Visit * Reason Onset Date Comments Medication Problem 12/25/2023 dulaglutide 3 mg/0.5 mL PnIj Encounter Details Date Type Department Care Team (Late st Contact Info) Description 12/25/[address] [address] Anabela Jin MD [address] [place] [address] [place] [phone] Medication Problem (dulaglutide [...] 3 mg/0.5 mL PnIj Refill status: Preferred Language:Citizen Of [place] Caller was aware message would be routed [...] documented as of this encounter Care Teams Contractor Broomcorn Threshing Relationship Specialty Start Date End Date Anabela Jin MD [address] [place] [address] [place] [phone] PCP - General Internal Medicine 11/24/23 documented as of this encounter
--- OUTSIDE RECORDS SUMMARY | 2025-03-24 13:38 | XMS_ITS | Encounter Summary ---
Author Organization [facility] Address [address] [place] [address] Phone -x2013 Care Team Providers Care Small Craft Operator Name Role Phone Anabela Jin MD Primary Care Provid er Reason for Visit * Reason Comments Med Change Request Encounter Details Date Type Department Care Team (Late st Contact Info) Description 02/05/[address] [address] Jewell Estrada APRN [address] [place] [address] Med Change Request Social History [...] documented as of this encounter Care Teams Small Craft Operator Relationship Specialty Start Date End Date Anabela Jin MD [address] [place] [address] [place] [phone] PCP - General Internal Medicine 11/24/23 documented as of this encounter
--- OUTSIDE RECORDS SUMMARY | 2025-03-24 13:38 | XMS_ITS | Encounter Summary ---
Author Organization [facility] Address [address] [place] [address] Phone -x2013 Care Team Providers Care Extras Casting Director Name Role Phone Anabela Jin MD Primary Care Provid er Reason for Visit * Reason Comments Medication Refill Encounter Details Date Type Department Care Team (Late st Contact Info) Description 02/25/2024 Refill [facility] [address] [place], [place] [phone] Jewell Estrada APRN [address] [place] [address] Medication Refill Social History Tobacco [...] documented as of this encounter Care Teams Extras Casting Director Relationship Specialty Start Date End Date Anabela Jin MD [address] [facility] [address] [place], [place] [phone] PCP - General Internal Medicine 11/24/23 documented as of this encounter
== END 2025-03-24 13:59 | disposition home or self-care (01) ==
LOC: HO.HCS 13:00
PROVIDERS: PCP Internal Medicine; Visit Provider Nurse Practitioner Family
DX: I35.0 Nonrheumatic aortic (valve) stenosis (principal); I10 Essential (primary) hypertension; E78.5 Hyperlipidemia, unspecified; R60.9 Edema, unspecified
CPT/HCPCS: 93010; 99214; G2211

== ENCOUNTER → 2025-03-24 12:59 | Outpatient (BNVA) | payer MEDICARE, MEDICAID, SELFPAY | PROVIDERS: PCP Internal Medicine; Visit Provider Nurse Practitioner Family | DX: I35.0 Nonrheumatic aortic (valve) stenosis (principal); I10 Essential (primary) hypertension; R60.9 Edema, unspecified; E78.5 Hyperlipidemia, unspecified; R94.31 Abnormal electrocardiogram [ECG] [EKG] | CPT/HCPCS: 93005; 99212 ==

== ENCOUNTER 2025-04-05 10:40 | Outpatient (AMB) | payer MEDICARE, MEDICAID, SELFPAY ==
--- NOTE | 2025-04-05 10:42 | A.OFFVIS_ITS ---
Vital Signs 04/05/25 10:43 Height 5 ft Weight 154 lb 5.177 oz BMI 30.1 BP 136/76 Blood Pressure Location Rt brachial Position Sitting Pulse Source Pulse Oximeter Pulse Oximetry (%) 96 Oxygen Delivery Method Room Air Intake Visit Reasons: Type II diabetes Intake Note: Patient present today to follow up on Type 2 Diabetes Mellitus. Last Diabetic Eye exam: Legally Blind Last Podiatry Visit: Does not see a Housekeeping Supervisor Hotel Random Glucose: 115 mg/dL HgA1C: 7.6%, 04/05/2025 Consumer Sales Representative Required: Yes Consumer Sales Representative Language: Carpenter Supervisor Services: Consumer Sales Representative Present Accompanied by: Daughter Allergies lisinopril Allergy (Severe, Verified 04/05/25 10:46) Swelling metformin Allergy (Intermediate, Verified 04/05/25 10:46) Intolerance, chest pain, high BP, diarrhea pantoprazole Allergy (Intermediate, Verified 04/05/25 10:46) rash quetiapine Allergy (Intermediate, Verified 04/05/25 10:46) chest pain empagliflozin (From Jardiance) Adverse Reaction (Intermediate, Verified 04/05/25 10:46) uti orange juice Allergy (Intermediate, Uncoded 04/05/25 10:46) gerd Medication List - Last Reconciled 04/05/25 by ANTONIO Beatty acetaminophen (Tylenol) 325 mg PO QID PRN acetaminophen 500 mg PO Q6H PRN adhesive tape (Band-Aid Paper Tape) As directed [adult diapers pull-ups Use 1 diaper 6 times a day] amlodipine 10 mg PO DAILY 90 days atorvastatin 40 mg PO DAILY 90 days benzonatate 200 mg PO TID PRN blood sugar diagnostic (FreeStyle Lite Strips) 3 times a day 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 meter (FreeStyle Lite Meter kit) 3 times a day 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 sensor (FreeStyle Stephon 3 Sensor device) apply new sensor every 14 days as directed 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 sensor (FreeStyle Stephon 3 Plus Sensor device) Apply 1 new sensor every 14 days as directed to monitor blood glucose continuously. 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,lead presser,cont (FreeStyle Stephon 3 [place]) as directed chlorthalidone 25 mg PO DAILY cholecalciferol (vitamin D3) 25 mcg PO DAILY commode As directed [compression stockings knee high As directed] Dexilant (dexlansoprazole) 60 mg PO DAILY NS dicyclomine 20 mg PO QID 30 days dulaglutide (Trulicity) 3 mg (0.5 mL) subcut QWEEK elastic bandage (Coban Self-Adherent Wrap) As directed ezetimibe 10 mg PO DAILY 90 days ferrous sulfate 325 mg PO DAILY 90 days fluticasone propionate 50 mcg/actuation (Flonase Allergy Relief) 1 spray intranasal DAILY furosemide 40 mg PO DAILY gauze bandage (Band-Aid Gauze Pads) As directed glipizide ER 2.5 mg PO DAILY glucose (Dex4 Glucose) 16 grams (4 x 4 gram) PO Q15M PRN insulin glargine (Lantus Solostar U-100 Insulin) 10 units (0.1 mL) subcut QPM lactulose 10 grams (15 mL) PO BEDTIME PRN 30 days lancets (FreeStyle Lancets) 3 times a day loperamide (Imodium A-D) 2 mg PO BID metoclopramide HCl (Reglan) 10 mg PO QIDACHS miscellaneous medical supply As directed omega-3 fatty acids-fish oil 300-1,000 mg 1 cap PO BID pen needle, diabetic (Comfort EZ Pen Lorraine) Use 1 pen needle once a day [personal wipes As directed] Shower Chair As directed simethicone (Gas Relief (simethicone)) 180 mg PO BID PRN 90 days sucralfate (Carafate) 10 mL PO QIDACHS tramadol 50 mg PO BID PRN 30 days [walker with seat As directed] [wheelchair As directed] HPI Comments Details: This is a 69-year-old female with a past medical history of dementia, legal blindness, type 2 diabetes, dyslipidemia, hypertension, obesity, GERD and chronic constipation presenting for diabetic management. She is with her daughter, Nicolette. [employer] DIRECT[employer] USED. Reviewed Stephon 3 data CGM active 86% Average glucose 153 GMI 7% Glucose variability 31.2% Very high 4% High 22% Target range 74% Hypoglycemia 0% The majority of her glucose readings are within target range with some hyperglycemia mid day and in the afternoon. Reports when CGM alerts to high sugar she is checking, and blood sugar is not always above 180. Hemoglobin A1c is 7.6% today. Microvascular complications: neuropathy, nephropathy (microalbumin) Macrovascular complications: none Hypertension: treated with amlodipine 10 mg, chlorthalidone 25 mg. Intolerant to DEBBY inhibitor which caused swelling. Hyperlipidemia: treated with atorvastatin 40 mg and Zetia 10 mg daily. She is a lso on furosemide. Current medication regimen in EMR: Lantus 10 units nightly, glipizide ER 2.5 mg daily, Trulicity 3 mg weekly. She endorses burning with urination for the past week. History of UTIs. Denies hemeturia, fevers, chills, nausea, vomiting. Daughter reports this is the 4th episode within the past year. There are positive urine cultures in the EMR. She would like a referral to Urology. Past medication: Intolerant to metformin which caused diarrhea, chest pain and elevated blood pressure. Jardiance discontinued due to vaginitis and UTI. She saw the tobacco educator and electrical high tension tester. Hypoglycemia symptoms: none. Denies episodes. Hyperglycemia symptoms: none. Denies episodes. ROS: Constitutional: No unexplained weight loss, fever, chills. Respiratory: No shortness of breath, cough, wheezing, sputum production or hemoptysis Cardiovascular: No chest pain Gastrointestinal: No nausea, vomiting or abdominal pain. Genitourinary: No hematuria, urinary frequency. Denies flank pain. Denies vaginal discharge or vaginal bleeding. Neurologic: No headache, dizziness, syncope Skin: No rash or itching. Endocrine: No polyuria or polydipsia. Physical exam: Constitutional: Alert, in no distress. Mouth: No erythema, swelling or lesions. Respiratory: Clear to auscultation. Cardiovascular: S1 S2 regular. Systolic murmur. Abdomen: Soft, nontender : No CVA tendernes Lower extremities: Warm and well perfused, 1+ pedal edema bilaterally. [facility] Medical History (Updated 04/05/25 @ 11:40 by ANTONIO Beatty) UTI symptoms Recurrent UTI (urinary tract infection) Diabetes mellitus Dysuria Urinary frequency Aortic stenosis Uncontrolled type 2 diabetes mellitus with hyperglycemia, with long-term current use of insulin Shortness of breath Chest pain Fissure in skin of foot Impacted cerumen of left ear Dyspepsia Cyst of skin Left shoulder pain Hospital discharge follow-up Medicare annual wellness visit, subsequent Cellulitis of left leg Dementia Retinitis pigmentosa of both eyes GERD (gastroesophageal reflux disease) Obesity (BMI 30-39.9) Vitamin D deficiency Dyslipidemia Hypertension Diabetic polyneuropathy associated with type 2 diabetes mellitus Diabetic nephropathy associated with type 2 diabetes mellitus Diabetes type 2, uncontrolled Surgical History History of esophagogastroduodenoscopy (EGD) H/O colonoscopy Hx of cholecystectomy Hx of tubal ligation Hx of hernia repair Family History Father No problems noted. Mother Heart disease HTN (hypertension) Sister Pre-diabetes Brother Leukemia Son In good health Daughter In good health Daughter In good health Social History Household Members: Family Housing: Apartment Alcohol intake: never Patient Tobacco Use Status: Never used Tobacco e-Cigarette/Vaping Use: Never Used Second Hand Smoke Exposure: No service: No Current occupational status: disabled Cognitive needs: No Hearing needs: No Vision needs: No Physical Exam Vital Signs: Last Vital Signs BP 136/76 04/05/25 10:43 Oxygen Delivery Method Room Air 04/05/25 10:43 BMI result Body Mass Index 30.1 Office Procedures Glucose Monitoring Details Details: See HPI 01610 - Glucose monitoring, continuous-physician I&R Procedure code (CPT) selection complete Results AMB Hemoglobin A1c AMB Hemoglobin A1c 7.6 % Last Edit by ALDO Alvarado on 04/05/25 11:04 Results Reviewed Results Reviewed: Laboratory Last Values Glucose (Clinic) 115 mg/dL (60-115) 04/05/25 10:52 Hgb A1c (Clinic) 7.6 % (4.0-6.0) H 04/05/25 11:03 Laboratory Tests 10/16/20 07/02/24 07/02/24 11:00 09:24 09:25 Creatinine Estimated GFR Hgb A1c (Clinic) AST ALT B-Natriuretic Peptide Triglycerides 177 H Cholesterol 149 LDL Cholesterol, Calc 72 HDL Cholesterol 42 TSH 0.38 Urine Creatinine 63.32 Urine Microalbumin 58.0 Microalb/Creat Ratio 91.5 H 01/04/25 01/07/25 04/05/25 10:20 07:24 11:03 Creatinine 0.69 Estimated GFR > 60 Hgb A1c (Clinic) 8.1 H 7.6 H AST 17 ALT 22 B-Natriuretic Peptide 118 H Triglycerides Cholesterol LDL Cholesterol, Calc HDL Cholesterol TSH Urine Creatinine Urine Microalbumin Microalb/Creat Ratio Assessment & Plan Assessment & Plan (1) Diabetic nephropathy associated with type 2 diabetes mellitus: Code(s): E11.21 - Type 2 diabetes mellitus with diabetic nephropathy Category: Medical (2) UTI symptoms: Code(s): R39.9 - Unspecified symptoms and signs involving the genitourinary system Category: Medical Plan In summary this is a 69-year-old female with Type II DM with microvascular complications. Target A1c less than 8% given age, dementia, fall risk due to comorbidities. Continue Trulicity 3 mg weekly. Continue Lantus 10 units daily. Continue glipizide 2.5 mg daily. Reviewed diabetic diet. Reviewed comorbidities associated with type 2 diabetes. Bring glucometer to all appointments. Reviewed treatment of hypo and hyperglycemia. She will go to the lab today for blood work and UA with culture. If this is positive she will be started on antibiotics. Referred to Urology. Warning signs warranting ER evaluation reviewed. Follow up in 3 months for Type II DM. Orders: Orders UA w Microscopic Today R39.9 - Unspecified symptoms and signs involving the genitourinary system Lipid Panel Today E78.5 - Hyperlipidemia, unspecified AMB Hemoglobin A1c Today E11.65 - Type 2 diabetes mellitus with hyperglycemia Urine Culture Today R39.9 - Unspecified symptoms and signs involving the genitourinary system Creatinine Today E11.9 - Type 2 diabetes mellitus without complications AMB Glucose Monitoring Today E11.9 - Type 2 diabetes mellitus without complications Referrals Urology Referral N39.0 - Urinary tract infection, site not specified, R32 - Unspecified urinary incontinence Medications: New elastic bandage (Coban Self-Adherent Wrap) As directed 1 ea 5RF Patient Instructions: Continue Glipizide 2.5 mg daily, Lantus 10 units daily, Trulicity 3 mg weekly You can use Coban wrap to help the sensor stay on the skin. If you experience low blood sugar, treat this by eating a chewable fruit candy like skittles or jelly beans (about 8 pieces), 4 ounces (1/2 cup) of fruit juice (not diet), 1 tablespoon of honey or 4 glucose tablets. If your blood sugar is under 50, take double the amount of one of the above. Recheck your blood sugar in 15 minutes. Contin?e con Glipizida 2.5 mg al d?a, Lantus 10 unidades al d?a, Trulicity 3 mg a la semana. Puede usar Coban wrap para que el sensor permanezca en la piel. Si experimenta niveles bajos de az?car en la deb, tr?telo comiendo un caramelo masticable de fruta rosenda Skittles o Jelly Beans (aproximadamente 8 piezas), 113 ml (1/2 taza) de jugo de fruta (no light), 1 cucharada de miel o 4 tabletas de glucosa. Si denson nivel de az?car en la deb es inferior a 50, tome el doble de la cantidad de adrian de los medicamentos mencionados. Vuelva a medir denson nivel de az?car en la deb en 15 minutos. Coding Level of Care Code Est Pt Level 4 (88839) Diagnoses Diabetic nephropathy associated with type 2 diabetes mellitus E11.21 UTI symptoms R39.9 CPT Codes Details - CPT: 62608 - Glucose monitoring, continuous-physician I&R ([id number])
[2025-04-05 10:43] VITALS: BP 136/76; O2SAT 96; BMI 30.1
[2025-04-05 10:58] LABS: Glucose, Whole Blood 115 mg/dL (60-115)
--- OUTSIDE RECORDS SUMMARY | 2025-04-05 12:39 | XMS_ITS | Encounter Summary ---
Author Organization [facility] Address [address] [place] [address] Phone -x2013 Care Team Providers Care Virtual Customer Assistant Name Role Phone Anabela Jin MD Primary Care Provid er Reason for Visit * Reason Onset Date Comments Medication Problem 12/25/2023 dulaglutide 3 mg/0.5 mL PnIj Encounter Details Date Type Department Care Team (Late st Contact Info) Description 12/25/[address] [address] Anabela Jin MD [address] [place] [address] [place] [phone] Medication Problem (dulaglutide [...] documented as of this encounter Care Teams Virtual Customer Assistant Relationship Specialty Start Date End Date Anabela Jin MD [address] [place] [address] [place] [phone] PCP - General Internal Medicine 11/24/23 documented as of this encounter
--- OUTSIDE RECORDS SUMMARY | 2025-04-05 12:39 | XMS_ITS | Clinical Summary ---
Author Organization [employer] Address [address] [facility] 7[address] [place] [address] Care Team Providers Care Varnish Maker Name Role Phone Unavailable Primary Care Provider [...] - Tdap) 1973 Mammogram 1994 COVID-19 Vaccine ( season) 2025 07/02/2022, 11/28/2021, 01/13/2021, Additional history exists Influenza [...] patient's age to complete this topic Insurance [facility] STANDARD [place] [phone]
--- OUTSIDE RECORDS SUMMARY | 2025-04-05 12:39 | XMS_ITS | Encounter Summary ---
Author Organization [facility] Address [address] [place] [address] Phone -x2013 Care Team Providers Care Dinkey Locomotive Operator Name Role Phone Anabela Jin MD Primary Care Provid er Reason for Visit * Reason Comments Med Change Request Encounter Details Date Type Department Care Team (Late st Contact Info) Description 12/25/2023 [facility] [address] [place], [place] [id number] Jewell Estrada APRN [address] [place] [address] Med Change Request Social History [...] documented as of this encounter Care Teams Dinkey Locomotive Operator Relationship Specialty Start Date End Date Anabela Jin MD [address] [place] [address] [place] [phone] PCP - General Internal Medicine 11/24/23 documented as of this encounter
--- OUTSIDE RECORDS SUMMARY | 2025-04-05 12:39 | XMS_ITS | Clinical Summary ---
Author Organization [facility] [address] [facility] Address [address] [place] [address] Phone Care Team Providers Care Rougher For Cement Name Role Phone Anabela Jin MD Primary [...] density) 2019 Hemoglobin A1C 03/19/2024 12/18/2023, 11/24/2023 LDL monitoring 12/17/2024 12/18/2023 Urine Microalbumin 01/14/2025 01/15/2024, 12/18/2023 Covid-19 vaccine series ( season) 2025 07/02/2022, 11/28/2021, 01/13/2021, Additional history exists Influenza vaccine 03/28/2025 04/04/2023, , 06/10/2019, Additional [...] Comment Performing Lab: Site ID: [id number] Name: [facility] Address: [address] [place] [phone] Director: Robbin Monroy M.D. Jewell Estrada APRN URINE ORDERABLES Final Result [facility] [address] [place] [address] * (ABNORMAL) Lipid panel with reflex to [...] LDL-C. Wade SS et al. MAXIMILIANO. 2013;310(19): 9729-0573 (http://education.Sayduck/faq/USY051) Chol/HDL Ratio 5.7(H) <5.0 (calc) [facility] [...] Comment Performing Lab: Site ID: [id number] Name: [facility] Address: [address] [place] [phone] Director: Robbin Monroy M.D. us Jewell Estrada APRN LAB BLOOD ORDERABLES Final Re sult [facility] [address] * POCT glycosylated hemoglobin (HgbA1c), total (26108) (12/18/2023 9:13 AM EDT) Hemoglobin A1C, POC 11.3 4.0 - 6.0 % [facility] Test Lot Number [id number] [facility] Test Lot Exp Date 09/08/25 Date Format: MM/DD/YYYY [facility] 12/18/2023 9:13 AM EDT Jewell Estrada APRN POINT OF CARE TEST ORDERABLES Final Result [facility] [place], [place], [facility] from Last 3 Months or Most Recently Relevant to Health Maintenance Insurance MEDICARE [id number] MEDICAID MEDICARE [id number] MEDICAID MEDICAID [place] [facility] [id number] MEDICAID Care Teams Rougher For Cement Relationship Specialty Start Date End Date Anabela Jin MD [address] [place] [address] [place] [phone] PCP - General Internal Medicine 11/24/23
--- OUTSIDE RECORDS SUMMARY | 2025-04-05 12:39 | XMS_ITS | Encounter Summary ---
Author Organization [facility] Address [address] [place] [address] Phone -x2013 Care Team Providers Care Wool Fleece Sorter Name Role Phone Anabela Jin MD Primary Care Provid er Reason for Visit * Reason Comments Medication Refill Encounter Details Date Type Department Care Team (Late st Contact Info) Description 02/25/2024 Refill [facility] [address] [place], [place] [phone] Jewell Estrada APRN [address] [place] [address] Medication Refill Social History Tobacco [...] documented as of this encounter Care Teams Wool Fleece Sorter Relationship Specialty Start Date End Date Anabela Jin MD [address] [facility] [address] [place], [place] [phone] PCP - General Internal Medicine 11/24/23 documented as of this encounter
--- OUTSIDE RECORDS SUMMARY | 2025-04-05 12:39 | XMS_ITS | Clinical Summary ---
Author Organization [facility] Address [address] [place] [address] Care Team Providers Care Field Sales Specialist Name Role Phone Anabela Jin MD Primary Care Provider [phone] Allergies Active Allergy Reactions Criticality Noted Date [...] Health Maintenance Due Date Last Done Comments Advance Care Planning 1955 Hepatitis C Virus Screening 1955 DTaP/Tdap/Td Vaccines [...] to complete this topic Insurance [facility] MEDICARE PART A & B Care Teams Field Sales Specialist Relationship Specialty Start Date End Date Anabela Jin MD [address] [place] [address] PCP - General Family Medicine 02/17/21
--- OUTSIDE RECORDS SUMMARY | 2025-04-05 12:39 | XMS_ITS | Encounter Summary ---
Author Organization [facility] Address [address] [place] [address] Phone -x2013 Care Team Providers Care Sales Consultant Insurance Name Role Phone Anabela Jin MD Primary Care Provid er Reason for Visit * Reason Comments Med Change Request Encounter Details Date Type Department Care Team (Late st Contact Info) Description 01/27/2024 [facility] [address] [place], [place] [phone] Jewell Estrada APRN [address] [place] [address] Med Change Request Social History [...] as of this encounter Care Teams Sales Consultant Insurance Relationship Specialty Start Date End Date Anabela Jin MD [address] [facility] [address] [place], [place] [phone] PCP - General Internal Medicine 11/24/23 documented as of this encounter
--- OUTSIDE RECORDS SUMMARY | 2025-04-05 12:39 | XMS_ITS | Clinical Summary ---
Author Organization [facility] Address [address] [place] [address], [place] [address] Care Team Providers Care Loading Unit Operator Powder Charging Name Role Phone Anabela Jin MD Primary Care Provider [phone] Allergies Active Allergy Reactions Criticality Noted Date [...] Medicaid [place] Care Teams Loading Unit Operator Powder Charging Relationship Specialty Start Date End Date Anabela Jin MD [address] [facility] [address] [place] [address] PCP - General Internal Medicine 09/03/21
--- OUTSIDE RECORDS SUMMARY | 2025-04-05 12:39 | XMS_ITS | Encounter Summary ---
Author Organization [facility] Address [address] [place] [address] Phone -x2013 Care Team Providers Care Salt Machine Operator Name Role Phone Anabela Jin MD Primary Care Provid er Reason for Visit * Reason Comments Med Change Request Encounter Details Date Type Department Care Team (Late st Contact Info) Description 02/05/[address] [address] Jewell Estrada APRN [address] [place] [address] Med Change Request Social History [...] documented as of this encounter Care Teams Salt Machine Operator Relationship Specialty Start Date End Date Anabela Jin MD [address] [place] [address] [place] [phone] PCP - General Internal Medicine 11/24/23 documented as of this encounter
--- OUTSIDE RECORDS SUMMARY | 2025-04-05 12:39 | XMS_ITS | Encounter Summary ---
Author Organization [facility] Address [address] [place] [address] Phone -x2013 Care Team Providers Care Malt Liquors Sales Representative Name Role Phone Anabela Jin MD Primary Care Provid er Reason for Visit * Reason Onset Date Comments Medication Problem 12/29/2023 semaglutide ( OZEMPIC) 0.25 mg or 0.5 mg (2 mg/3 mL) pen injector Advice Only 12/29/2023 Encounter Details Date Type Department Care Team ([facility] st Contact Info) Description 12/29/2023 [place] [address] Anabela Jin MD [address] [place] [address] [place] [phone] Medication Problem (semaglutide [...] James RN - 12/29/2023 4:15 PM EDT #[id number] kenyan interpretor Called back pt and relayed medication [...] she didn't understand the previous call with city treasurer states line was cutting out and requesting a callback to get clarification on Rx if pt has to take .25 or 0.5mg and for how long please callback to advise Specify Name of Medication: semaglutide (OZEMPIC) 0.25 mg or 0.5 mg (2 mg/3 mL) pen injector Refill status:0 Preferred Language:kenyan Caller was aware message would be routed to PCP team for review and F/U. Caller made aware of form policy. Caller verbalized understating and had no further question at this time. * Telephone Encounter - Priscilla Wilson - 12/29/2023 9:14 AM EDT Reason for call:states she didn't understand the previous call with city treasurer states line was cutting out and requesting a callback to get clarification on Rx if pt has to take .25 and for how longplease callback to advise Medication Issue/Schedule Appointment F/FU/Authorization Request: Specify Name of Medication:semaglutide (OZEMPIC) 0.25 mg or 0.5 mg (2 mg/3 mL) pen injector Refill status:0 Preferred Language:kenyan Caller was aware message would be routed [...] documented as of this encounter Care Teams Malt Liquors Sales Representative Relationship Specialty Start Date End Date Anabela Jin MD [address] [place] [address] [place] [phone] PCP - General Internal Medicine 11/24/23 documented as of this encounter
== END 2025-04-05 11:37 | disposition home or self-care (01) ==
LOC: HO.ENCR 10:41
PROVIDERS: PCP Internal Medicine; Visit Provider Physician Assistant Medical
DX: E11.21 Type 2 diabetes mellitus with diabetic nephropathy (principal); R39.9 Unspecified symptoms and signs involving the genitourinary system; E11.65 Type 2 diabetes mellitus with hyperglycemia

== ENCOUNTER → 2025-04-05 10:40 | Outpatient (BNVA) | payer MEDICARE, MEDICAID, SELFPAY | PROVIDERS: PCP Internal Medicine; Visit Provider Physician Assistant Medical | DX: E11.21 Type 2 diabetes mellitus with diabetic nephropathy (principal); R39.9 Unspecified symptoms and signs involving the genitourinary system; E11.65 Type 2 diabetes mellitus with hyperglycemia; Z79.4 Long term (current) use of insulin | CPT/HCPCS: 82947; 83036; 99212 ==

== ENCOUNTER 2025-04-05 11:41 | Outpatient (REF) | payer MEDICARE, MEDICAID, SELFPAY ==
[2025-04-05 13:47] LABS: Cholesterol 298 mg/dL (<200); Estimated Glomerular Filt Rate > 60; HDL Cholesterol 44 mg/dL (>40); Triglycerides 239 mg/dL (<150)
[2025-04-05 15:30] LABS: Appearance Urine Cloudy; Glucose Urine UA Negative (Negative); PH 5.5 (5.0-9.0); Specific Gravity - Urine 1.025 (1.005-1.025); UMIC TRIGGER UA YES
== END 2025-04-05 11:42 | disposition home or self-care (01) ==
LOC: HO.10HDL 11:41
PROVIDERS: Visit Provider Physician Assistant Medical
DX: E11.9 Type 2 diabetes mellitus without complications (principal); R39.9 Unspecified symptoms and signs involving the genitourinary system; E78.5 Hyperlipidemia, unspecified
CPT/HCPCS: 36415; 80061; 81001; 82565; 87086

== ENCOUNTER 2025-04-08 07:32 | Emergency (ER) | payer MEDICARE, MEDICAID, SELFPAY ==
--- NOTE | ~2025-04-08 | CT_ITS ---
EXAMINATION: CT CHEST WITHOUT IV CONTRAST INDICATION: ? pneumonia COMPARISON: Comparison is made with the prior examination dated 01/07/2025. TECHNIQUE: Helical CT scan of the chest was performed without intravenous contrast. Coronal and sagittal reformatted images were generated and reviewed. This CT exam was performed with one or more of the following dose reduction techniques: automated exposure control, adjustment of the mA and/or kV according to patient size, use of iterative reconstruction technique. DLP: 307 mGy-cm CHEST: THYROID: The thyroid is unremarkable. LUNGS: There is a tiny 2 mm nodule in the left upper lobe (series 5, image 44). The lungs are otherwise clear. There are no focal airspace opacities. MEDIASTINUM: There is no mediastinal lymphadenopathy. DEEP: Evaluation of the hilar regions is limited by lack of intravenous contrast material. CARDIOVASCULATURE: The heart is mildly enlarged. There is no pericardial effusion. The thoracic aorta is normal in caliber. DEGREE OF CORONARY CALCIFICATION: severe PLEURA: There is no pleural effusion. No pneumothorax. MAIN AIRWAYS: The mainstem bronchi and proximal branches are patent. AXILLA: There is no axillary lymphadenopathy. BONES AND SOFT TISSUES: Unremarkable UPPER ABDOMEN: The visualized portions of the liver, spleen, and adrenals have an unremarkable unenhanced appearance. CT/CT chest wo IV con IMPRESSION: Cardiomegaly and severe coronary arterial calcification. No airspace opacities are identified to suggest pneumonia. Electronically signed by: Jean Galan MD 04/08/2025 10:18 AM EDT
--- NOTE | ~2025-04-08 | XR_ITS ---
EXAMINATION: XR CHEST CLINICAL INFORMATION: fever cough ? pneumonia COMPARISON: January 07, 2025 TECHNIQUE: 2 views of the chest were obtained. FINDINGS: Pulmonary reticular pattern. No hyperinflation. No consolidation, or pneumothorax. Blunting of the posterior costophrenic angles, left greater than right. Cardiomediastinal silhouette size is mildly prominent. Calcified plaque aorta. Multilevel thoracolumbar spondylosis. Osteopenia versus osteoporosis. Vascular clips in the right upper quadrant abdomen likely prior cholecystectomy. Patient's large body habitus.. XR/XR chest 2V IMPRESSION: Bilateral small pleural effusions, right greater than the left side. Chronic interstitial lung disease with questionable mild interstitial lung edema. Electronically signed by: Delon Wright MD 04/08/2025 09:09 AM EDT
--- NOTE | 2025-04-08 07:34 | ECG_ITS ---
Test Reason : CP Blood Pressure : */* mmHG Vent. Rate : 111 BPM Atrial Rate : 111 BPM P-R Int : 162 ms QRS Dur : 66 ms QT Int : 316 ms P-R-T Axes : 38 6 26 degrees QTcB Int : 429 ms Sinus tachycardia Minimal voltage criteria for LVH, may be normal variant ( R in aVL ) Nonspecific T wave abnormality Abnormal ECG When compared with ECG of 07-Jan-2025 07:36, Non-specific change in ST segment in Lateral leads Referred By: Generic ED Physician Electronically Signed By: MALISSA BLANCO MD
[2025-04-08 07:50] VITALS: BP 156/82; PULSE 109; RESP 15; TEMP 37.7; O2SAT 99; BMI 27.9
--- NOTE | 2025-04-08 07:59 | ED_ITS ---
HPI - Chest Pain General Chief Complaint: Chest Pain Stated Complaint: CP, fever Time Seen by Provider: 04/08/25 07:44 Source: patient and family (daughter) History of Present Illness HPI narrative: Annette is 70 years old the patient came to the emergency department with a chief complaint of fever as high as 103.2, chest pain. She has a history of aortic stenosis borderline moderate to severe, she has a history of diabetes, she is blind. She lives with a daughter who is the front desk coordinator . She has difficult to describe the chest pain she feels like pressure. MD complaint: chest discomfort Pertinent past history: other (Aortic stenosis and moderate to severe) Onset (ago): day(s) (1) Prior episodes: No Onset: during rest Pain location: substernal Pain radiation: none Severity: mild Quality: heaviness Relieving factors: nothing Exacerbating factors: nothing Associated symptoms: other (Fever) Risk Factors Coronary artery disease risk factors: diabetes Related Data Home Medications ?Medication ?Instructions ?Recorded ?Confirmed chlorthalidone 25 mg tablet 25 mg PO DAILY 01/23/24 Previous Rx's ?Medication ?Instructions ?Recorded 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 meter (FreeStyle #1 ea 11/15/20 Lite Meter kit) lancets 28 gauge (FreeStyle #100 ea 11/15/20 Lancets) wheelchair #1 ea 11/15/20 adhesive tape 1 X 10 yard #1 ea 08/09/21 (Band-Aid Paper Tape) gauze bandage 4 X 4 (Band-Aid #1,200 ea 08/09/21 Gauze Pads) blood sugar diagnostic (FreeStyle #100 ea 07/12/22 Lite Strips) personal wipes #200 ea 10/25/22 cholecalciferol (vitamin D3) 25 25 mcg PO DAILY #90 ca ps 03/04/23 mcg (1,000 unit) capsule acetaminophen 325 mg tablet 325 mg PO QID PRN pain #45 tabs 03/16/23 (Tylenol) loperamide 2 mg capsule (Imodium 2 mg PO BID loose sto ol #60 caps 05/14/23 A-D) tramadol 50 mg tablet 50 mg PO BID PRN pain 30 day s #60 06/17/23 tabs pen needle, diabetic 31 gauge x #100 ea 02/04/2412/10 (Comfort EZ Pen Prague) dicyclomine 20 mg tablet 20 mg PO QID 30 days #120 ta bs 02/20/24 metoclopramide HCl 10 mg tablet 10 mg PO QIDACHS #120 tabs 02/20/24 (Reglan) commode #1 ea 03/15/24 Shower Chair #1 ea 04/28/24 walker with seat #1 ea 04/28/24 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,art objects salesperson,cont #1 ea 05/04/24 (FreeStyle Stephon 3 Cushing) glucose 4 gram chewable tablet 16 g (4 x 4 gram) PO Q1 5M PRN 05/04/24 (Dex4 Glucose) hypoglycemia #60 tabs amlodipine 10 mg tablet 10 mg PO DAILY 90 days #90 t abs 05/26/24 simethicone 180 mg capsule (Gas 180 mg PO BID PRN abdo celio 05/26/24 Relief (simethicone)) distention 90 days #180 caps 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 sensor (FreeStyle #2 ea 05/27/24 Stephon 3 Sensor device) 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 sensor (FreeStyle #2 ea 06/10/24 Stephon 3 Plus Sensor device) ezetimibe 10 mg tablet 10 mg PO DAILY 90 days #90 t abs 06/15/24 ferrous sulfate 325 mg (65 mg 325 mg PO DAILY 90 days #90 tabs 07/04/24 iron) tablet lactulose 10 gram/15 mL oral 10 g (15 mL) PO BEDTIME P RN 07/19/24 solution constipation 30 days #237 mL acetaminophen 500 mg capsule 500 mg PO Q6H PRN fever # 20 caps 09/08/24 omega-3 fatty acids-fish oil 300 1 cap PO BID #60 caps 11/24/24 mg-1,000 mg capsule sucralfate 100 mg/mL oral 10 ml PO QIDACHS #1,000 mL 0 11/30/24 suspension (Carafate) miscellaneous medical supply #3 ea 12/15/24 Dexilant 60 mg capsule, delayed 60 mg PO DAILY #30 cap s 12/23/24 release (dexlansoprazole) glipizide 2.5 mg tablet, extended 2.5 mg PO DAILY #90 tabs 01/04/25 release 24 hr insulin glargine 100 unit/mL (3 10 unit (0.1 mL) subcu t QPM #15 mL 01/04/25 mL) subcutaneous pen (Lantus Solostar U-100 Insulin) benzonatate 200 mg capsule 200 mg PO TID PRN cough #14 caps 01/07/25 fluticasone propionate 50 1 spray intranasal DAILY #16 grams 01/07/25 mcg/actuation nasal spray,suspension (Flonase Allergy Relief) compression stockings knee high #2 ea 01/10/25 dulaglutide 3 mg/0.5 mL 3 mg (0.5 mL) subcut QWEEK # 4 ea 01/24/25 subcutaneous pen injector (Trulicity) furosemide 40 mg tablet 40 mg PO DAILY #7 tabs 03/03 adult diapers pull-ups #120 ea 03/18/25 elastic bandage 3 X 5 yard (Coban #1 ea 04/05/25 Self-Adherent Wrap) nitrofurantoin 100 mg PO BID #14 caps 04/05 monohydrate/macrocrystals 100 mg capsule (Macrobid) rosuvastatin 10 mg tablet 10 mg PO BEDTIME #90 tabs doxycycline monohydrate 100 mg 100 mg PO BID 7 days #1 4 caps 04/08/25 capsule Allergies Allergy/AdvReac Type Severity Reaction Status Date / Time lisinopril Allergy Severe Swelling Verified 04/08/25 07:55 metformin Allergy Intermediate Intolerance, Verified 04/08/25 07:55 chest pain, high BP, diarrhea pantoprazole Allergy Intermediate rash Verified 04/08/25 07:55 quetiapine Allergy Intermediate chest pain Verified 04/08/25 07:55 empagliflozin (From AdvReac Intermediate uti Verified 04/08/25 07:55 Jardiance) atorvastatin AdvReac Mild Diarrhea Verified 04/08/25 07:55 orange juice Allergy Intermediate gerd Uncoded 04/08/25 07:55 Review of Systems 2 Constitutional: Constitutional: Reports fatigue and Reports fever(s) Cardiovascular: Cardiovascular: Reports chest pain Respiratory: Respiratory: Reports cough (dry) Endocrine: Endocrine: Reports fatigue [facility] Past Medical History [facility] Narrative: Aortic stenosis/diabetes/blindness Medical History UTI symptoms Recurrent UTI (urinary tract infection) Diabetes mellitus Dysuria Urinary frequency Aortic stenosis Uncontrolled type 2 diabetes mellitus with hyperglycemia, with long-term current use of insulin Shortness of breath Chest pain Fissure in skin of foot Impacted cerumen of left ear Dyspepsia Cyst of skin Left shoulder pain Hospital discharge follow-up Medicare annual wellness visit, subsequent Cellulitis of left leg Dementia Retinitis pigmentosa of both eyes GERD (gastroesophageal reflux disease) Obesity (BMI 30-39.9) Vitamin D deficiency Dyslipidemia Hypertension Diabetic polyneuropathy associated with type 2 diabetes mellitus Diabetic nephropathy associated with type 2 diabetes mellitus Diabetes type 2, uncontrolled Surgical History History of esophagogastroduodenoscopy (EGD) H/O colonoscopy Hx of cholecystectomy Hx of tubal ligation Hx of hernia repair Family History Family History Father No problems noted. Mother Heart disease HTN (hypertension) Sister Pre-diabetes Brother Leukemia Son In good health Daughter In good health Daughter In good health Social History Social History Household Members: Family Housing: Apartment Alcohol intake: never Patient Tobacco Use Status: Never used Tobacco e-Cigarette/Vaping Use: Never Used Second Hand Smoke Exposure: No service: No Current occupational status: disabled Cognitive needs: No Hearing needs: No Vision needs: No Physical Exam 2 Exam: Exam: No acute distress Vital Signs: Vital Signs: Last Vital Signs Temp 98.2 F 04/08/25 15:03 Pulse 92 04/08/25 15:03 Resp 18 04/08/25 15:03 BP 139/74 04/08/25 15:03 Pulse Ox 96 04/08/25 15:03 O2 Del Method Room Air 04/08/25 15:03 BMI result Body Mass Index 27.9 Low-grade temperature slightly tachycardic Const: General: cooperative and comfortable Orientation/consciousness: p atient oriented x3 HEENT: Head: Yes normal to inspection General nose exam: Normal external nose present Mouth: Normal oral and palatal mucosa present Neck: Neck: Yes normal visual inspection Chest: Chest palpation & inspection: normal inspection of the chest Resp: Effort & Inspection: normal respiratory effort Auscultation: rhonchi Cardio: Jugular venous distension: no JVD Rate: regular rate Rhythm: r egular rhythm GI: Inspection: Yes normal to inspection Palpation (GI): Soft to palpation : General: Yes no CVA tenderness Back/Spine/Pelvis: Back: no CVA tenderness Neuro: General: patient oriented x3 Cranial nerves: Yes CN's II-XII intact bilaterally Course Reevaluation(s) Reevaluation #1: On re-examination the patient is feeling much better he is completely asymptomatic delta trop is flat no fever here in the emergency department. I think she can be discharged home she is comfortable with the plan family also is comfortable with the plan. But because of the reported fever the cough and I will send her home on p.o. antibiotic for possible bronchitis. Time: 13:59 Medications Administered Discontinued Medications Generic Name Dose Route Start Last Admin Trade Name Freq PRN Reason Stop Dose Admin Sodium Chloride 1,000 mls @ 999 mls/hr 04/08/25 08:00 04/08/25 10:36 Ns IVCONT 04/08/25 09:00 Infused .Q1H1M EMMANUEL Infusion Medical Decision Making Medical Decision Making [facility] Narrative: Patient is here with fever chest pain cough we will obtain lab chest x-ray 14:00 the patient remained asymptomatic no chest pain no fever detected in the ED normal chest normal white count flat delta troponin. CT chest shows no pneumonia only cardiomegaly coronary calcification. Because of the reported fever cough we will send home with the patient antibiotic I also spoke with Cardiology Dr. Hart because the history of aortic stenosis he will follow-up closely in the office Differential Diagnosis Differential Diagnoses: The differential diagnosis associated with the presentation includes Pneumonia/acute coronary syndrome Admission/Observation Consideration of admission/observation: Escalation of care including admission/observation considered Consult Healthcare Provider Management of the patient was discussed with: Director Airport Operations Dr Hart Lab Data [facility] Lab Attestation statement: I reviewed the patient's lab results. 04/08/25 08:30 04/08/25 08:30 Labs: Lab Results 04/08/25 04/08/25 Range/Units 08:30 11:44 WBC 5.9 (4.8-10.8) X10*3/uL RBC 4.81 (4.20-5.50) X10*6/uL Hgb 12.0 (12.0-16.0) g/dl Hct 36.3 L (37.0-47.0) % MCV 75.5 L (80.0-98.0) fL MCH 24.9 L (27.0-33.0) pg MCHC 33.1 (31.0-35.0) g/dl RDW 14.0 (11.0-16.0) % Plt Count 140 L (160-400) X10*3/uL MPV 10.7 (9.4-12.3) fL Immature Gran % (Auto) 0.5 H (0.0-0.4) % Neut % (Auto) 81.0 H (45-73) % Lymph % (Auto) 6.7 L (20-40) % [place] % (Auto) 7.9 (2-11) % Eos % (Auto) 3.7 (0-4) % Baso % (Auto) 0.2 (0-2) % Lymph # (Auto) 0.4 L (1.2-4.9) X10*3/uL [place] # (Auto) 0.5 (0.1-1.2) X10*3/uL Eos # (Auto) 0.2 (0.0-0.4) X10*3/uL Baso # (Auto) 0.0 (0.0-0.2) X10*3/uL Abs Immat Gran (auto) 0.03 (0.00-0.03) X10*3/uL Absolute Neuts (auto) 4.8 (2.0-8.3) x10*3/uL Absolute Nucleated RBC 0.000 (0.0-0.012) X10*3/uL Nucleated RBC % (auto) 0.0 (0.0-0.2) /100WBC Sodium 141 (135-145) mmol/L Potassium 3.8 (3.3-5.1) mmol/L Chloride 107 (96-108) mmol/L Carbon Dioxide 25 (22-29) mmol/L Anion Gap 13 (12-20) BUN 16 (9-16) mg/dL Creatinine 0.85 (0.5-1.4) mg/dL Estim Creat Clear Calc 55.3 Estimated GFR > 60 Random Glucose 125 H (60-115) mg/dL Lactic Acid 1.0 (0.5-2.0) mmol/L Calcium 9.5 (8.4-10.2) mg/dL Total Bilirubin 0.6 (0.0-1.0) mg/dL AST 17 (5-31) U/L ALT 15 (0-31) U/L Alkaline Phosphatase 70 (39-117) U/L Troponin I High Sens 9.5 D 7.4 (<3.5-17.0) ng/L B-Natriuretic Peptide 139 H (<100) pg/mL Total Protein 7.7 (6.5-8.0) g/dL Albumin 4.4 (3.5-5.0) g/dL Influenza Type A (PCR) NEGATIVE (Negative) Influenza Type B (PCR) NEGATIVE (Negative) RSV RNA Qual (PCR) NEGATIVE (Negative) SARS-CoV-2 RNA (RT-PCR) NEGATIVE (Negative) Independent Interpretation I performed an independent interpretation of an: EKG Interpretation: Sinus tachycardia rate [address]-T changes no ischemia EKG was reviewed interpreted by me Radiology Impression Discussion of test interpretation with radiology: I have reviewed the radiologist's reading. Independent Historian Clinical information obtained from an independent historian. History obtained from or confirmed by: Other (daughter) External Record Review External record reviewed: Inpatient record and Office record Chronic Conditions Patient?s care impacted by: Other () Discharge Plan Discharge Clinical Impression: Bronchitis Fever Qualifiers: Fever type: unspecified Qualified Code(s): R50.9 - Fever, unspecified Patient Disposition: Home, Self-Care Instructions: Acute Bronchitis (ED) Additional Instructions: Follow-up with your primary care physician also follow-up with your steamfitter apprentice return to the emergency room if you worse Prescriptions: New doxycycline monohydrate 100 mg capsule 100 mg PO BID 7 Days Qty: 14 0RF No Action (DME) lancets [FreeStyle Lancets] 28 gauge misc See Rx Instructions .MEDSUPPLY Qty: 100 7RF Rx Instructions: 3 times a day (DME) 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 meter [FreeStyle Lite Meter] Kit See Rx Instructions miscellaneous .MEDSUPPLY Qty: 1 0RF Rx Instructions: 3 times a day (DME) FreeStyle Lite Strips Strip See Rx Instructions .MEDSUPPLY Qty: 100 11RF Rx Instructions: 3 times a day (DME) personal wipes See Rx Instructions .Route .MEDSUPPLY Qty: 200 6RF Rx Instructions: As directed cholecalciferol (vitamin D3) 25 mcg (1,000 unit) capsule 25 mcg PO DAILY Qty: 90 0RF acetaminophen [Tylenol] 325 mg tablet 325 mg PO QID PRN (Reason: pain) Qty: 45 0RF tramadol 50 mg tablet 50 mg PO BID PRN (Reason: pain) 30 Days Qty: 60 0RF (DME) commode Kit See Rx Instructions .Route Qty: 1 0RF Rx Instructions: As directed (DME) walker with seat See Rx Instructions .Route .MEDSUPPLY Qty: 1 0RF Rx Instructions: As directed (DME) Shower Chair Misc See Rx Instructions .Route Qty: 1 0RF Rx Instructions: As directed simethicone [Gas Relief (simethicone)] 180 mg capsule 180 mg PO BID PRN (Reason: abdominal distention) 90 Days Qty: 180 1RF amlodipine 10 mg tablet 10 mg PO DAILY 90 Days Qty: 90 1RF (DME) FreeStyle Stephon 3 Sensor Device See Rx Instructions .ROUTE .MEDSUPPLY Qty: 2 11RF Rx Instructions: apply new sensor every 14 days as directed (DME) FreeStyle Stephon 3 Plus Sensor Device See Rx Instructions .ROUTE .MEDSUPPLY Qty: 2 11RF Rx Instructions: Apply 1 new sensor every 14 days as directed to monitor blood glucose continuously. ferrous sulfate 325 mg (65 mg iron) tablet 325 mg PO DAILY 90 Days Qty: 90 1RF lactulose 10 gram/15 mL solution 10 g PO BEDTIME PRN (Reason: constipation) 30 Days Qty: 237 1RF omega-3 fatty acids-fish oil 300-1,000 mg capsule 1 cap PO BID Qty: 60 2RF (DME) [facility] See Rx Instructions .Route Qty: 3 0RF Rx Instructions: As directed insulin glargine [Lantus Solostar U-100 Insulin] 100 unit/mL (3 mL) insulin pen 10 unit subcut QPM Qty: 15 0RF (DME) compression stockings knee high 30 mmHg See Rx Instructions .Route .MEDSUPPLY Qty: 2 6RF Rx Instructions: As directed Trulicity 3 mg/0.5 mL pen injector 3 mg subcut QWEEK Qty: 4 3RF furosemide 40 mg tablet 40 mg PO DAILY Qty: 7 0RF (DME) adult diapers pull-ups large See Rx Instructions .Route .MEDSUPPLY Qty: 120 11RF Rx Instructions: Use 1 diaper 6 times a day rosuvastatin 10 mg tablet 10 mg PO BEDTIME Qty: 90 0RF Rx Instructions: Replace as atorvastatin nitrofurantoin monohyd/m-cryst [Macrobid] 100 mg capsule 100 mg PO BID Qty: 14 0RF Rx Instructions: must administer with a meal/food fluticasone propionate [Flonase Allergy Relief] 50 mcg/actuation spray,suspension 1 spray intranasal DAILY Qty: 16 0RF Rx Instructions: administer into each nostril benzonatate 200 mg capsule 200 mg PO TID PRN (Reason: cough) Qty: 14 0RF (DME) wheelchair See Rx Instructions .Route .MEDSUPPLY Qty: 1 0RF Rx Instructions: As directed (DME) gauze bandage [Band-Aid Gauze Pads] 4 X 4 bandage See Rx Instructions .Route Qty: 1200 0RF Rx Instructions: As directed (DME) adhesive tape [Band-Aid Paper Tape] 1 X 10 -yard tape See Rx Instructions .Route Qty: 1 0RF Rx Instructions: As directed (DME) pen needle, diabetic [Comfort EZ Pen Prague] 31 gauge x 5/16 needle See Rx Instructions .Route Qty: 100 3RF Rx Instructions: Use 1 pen needle once a day (DME) FreeStyle Stephon 3 [place]ushing Misc See Rx Instructions .ROUTE .MEDSUPPLY Qty: 1 0RF Rx Instructions: as directed glucose [Dex4 Glucose] 4 gram tablet,chewable 16 g PO Q15M PRN (Reason: hypoglycemia) Qty: 60 1RF Rx Instructions: until symptoms of low blood sugar are controlled ezetimibe 10 mg tablet 10 mg PO DAILY 90 Days Qty: 90 1RF glipizide 2.5 mg tablet extended release 24hr 2.5 mg PO DAILY Qty: 90 0RF sucralfate [Carafate] 100 mg/mL suspension 10 ml PO QIDACHS Qty: 1000 0RF (DME) elastic bandage [Coban Self-Adherent Wrap] 3 X 5 -yard bandage See Rx Instructions .Route Qty: 1 5RF Rx Instructions: As directed loperamide [Imodium A-D] 2 mg capsule 2 mg PO BID Qty: 60 6RF chlorthalidone 25 mg tablet 25 mg PO DAILY metoclopramide HCl [Reglan] 10 mg tablet 10 mg PO QIDACHS Qty: 120 6RF Rx Instructions: dispense 10mg dose not 5mg dicyclomine 20 mg tablet 20 mg PO QID 30 Days Qty: 120 6RF acetaminophen 500 mg capsule 500 mg PO Q6H PRN (Reason: fever) Qty: 20 0RF dexlansoprazole [Dexilant] 60 mg capsule,biphase delayed releas 60 mg PO DAILY Qty: 30 6RF Referrals: Anabela Jin MD [Primary Care Provider, Internal Medicine] - 04/11/25 Interventions: ED Discharge Assessment Last Done: 04/08/25 15:03 Discharge Date/Time: 04/08/25 15:03 Print Language: Malaysian
[2025-04-08 08:35] LABS: MANUAL DIFF FLAG NO
[2025-04-08 08:37] VITALS: BP 133/63; PULSE 98; RESP 24; O2SAT 99
[2025-04-08 08:37] LABS: Hematocrit 36.3 % (37.0-47.0); Hemoglobin 12.0 g/dl (12.0-16.0); Imm Gran Abs Auto 0.03 X10*3/uL (0.00-0.03); Imm Gran Pct Auto 0.5 % (0.0-0.4); Lymphocytes Absolute Auto 0.4 X10*3/uL (1.2-4.9); Mean Corpuscular HGB Conc 33.1 g/dl (31.0-35.0); Mean Corpuscular Hemoglobin 24.9 pg (27.0-33.0); Mean Corpuscular Volume 75.5 fL (80.0-98.0); NRBC Abs Auto 0.000 X10*3/uL (0.0-0.012); NRBC Pct Auto 0.0 /100WBC (0.0-0.2); Platelet Count 140 X10*3/uL (160-400); Red Blood Count 4.81 X10*6/uL (4.20-5.50); White Blood Count 5.9 X10*3/uL (4.8-10.8)
[2025-04-08 08:53] LABS: Alanine Aminotransferase 15 U/L (0-31); Albumin Level 4.4 g/dL (3.5-5.0); Alkaline Phosphatase 70 U/L (39-117); Anion Gap 13 (12-20); Aspartate Amino Transferase 17 U/L (5-31); Blood Urea Nitrogen 16 mg/dL (9-16); Calcium 9.5 mg/dL (8.4-10.2); Carbon Dioxide 25 mmol/L (22-29); Chloride 107 mmol/L (96-108); Creatinine Clr Calc Pharmacy 55.3; Estimated Glomerular Filt Rate > 60; Potassium 3.8 mmol/L (3.3-5.1); Sodium 141 mmol/L (135-145); Total Protein 7.7 g/dL (6.5-8.0)
[2025-04-08 09:00] LABS: Troponin-I High Sensitivity 9.5 ng/L (<3.5-17.0)
--- OUTSIDE RECORDS SUMMARY | 2025-04-08 09:16 | XMS_ITS | Encounter Summary ---
Author Organization [facility] Address [address] [place] [address] Phone -x2013 Care Team Providers Care Therapist Radiation Name Role Phone Anabela Jin MD Primary Care Provid er Reason for Visit * Reason Onset Date Comments Medication Problem 12/25/2023 dulaglutide 3 mg/0.5 mL PnIj Encounter Details Date Type Department Care Team (Late st Contact Info) Description 12/25/[address] [address] Anabela Jin MD [address] [place] [address] [place] [phone] Medication Problem (dulaglutide [...] 3 mg/0.5 mL PnIj Refill status: Preferred Language:Wolof Caller was aware message would be routed [...] documented as of this encounter Care Teams Therapist Radiation Relationship Specialty Start Date End Date Anabela Jin MD [address] [place] [address] [place] [phone] PCP - General Internal Medicine 11/24/23 documented as of this encounter
--- OUTSIDE RECORDS SUMMARY | 2025-04-08 09:16 | XMS_ITS | Encounter Summary ---
Author Organization [facility] Address [address] [place] [address] Phone -x2013 Care Team Providers Care Land Lease Information Clerk Name Role Phone Anabela Jin MD Primary Care Provid er Reason for Visit * Reason Comments Med Change Request Encounter Details Date Type Department Care Team (Late st Contact Info) Description 02/05/[address] [address] Jewell Estrada APRN [address] [place] [address] Med Change Request Social History [...] documented as of this encounter Care Teams Land Lease Information Clerk Relationship Specialty Start Date End Date Anabela Jin MD [address] [place] [address] [place] [phone] PCP - General Internal Medicine 11/24/23 documented as of this encounter
--- OUTSIDE RECORDS SUMMARY | 2025-04-08 09:16 | XMS_ITS | Clinical Summary ---
Author Organization [facility] Address [address] [place] [id number] Care Team Providers Care Working Second Hand Name Role Phone Anabela Jin MD Primary Care Provider [phone] Allergies Active Allergy Reactions Criticality Noted Date [...] (Females,Ages 65 and older) 2019 Influenza Vaccine 02/25/2025 COVID-19 Vaccine (3 - 2024-2 6 season) 2025 01/13/2021, 12/23/2020 Hepatitis B Vaccines Aged Out No long er eligible based on patient's age to complete this topic Insurance [facility] MEDICARE PART A & B Care Teams Working Second Hand Relationship Specialty Start Date End Date Anabela Jin MD [address] [place] [phone] PCP - General Family Medicine 02/17/21
--- OUTSIDE RECORDS SUMMARY | 2025-04-08 09:16 | XMS_ITS | Clinical Summary ---
Author Organization [facility] [address] [facility] Address [address] [place] [address] Phone Care Team Providers Care Behavior Clinician Name Role Phone Anabela Jin MD Primary [...] Comment Performing Lab: Site ID: [id number] Name: [facility] Address: [address] [place] [phone] Director: Robbin Monroy M.D. Jewell Estrada APRN URINE ORDERABLES Final Result [facility] [address] [place] [address] * (ABNORMAL) Lipid panel with reflex to [...] LDL-C. Wade SS et al. MAXIMILIANO. 2013;310(19): 6188-6917 (http://education.PRX/faq/GWK481) Chol/HDL Ratio 5.7(H) <5.0 (calc) [facility] [...] Comment Performing Lab: Site ID: [id number] Name: [facility] Address: [address] [place] [phone] Director: Robbin Monroy M.D. us Jewell Estrada APRN LAB BLOOD ORDERABLES Final Re sult [facility] [address] * POCT glycosylated hemoglobin (HgbA1c), total (31948) (12/18/2023 9:13 AM EDT) Hemoglobin A1C, POC 11.3 4.0 - 6.0 % [facility] Test Lot Number [id number] [facility] Test Lot Exp Date 09/08/25 Date Format: MM/DD/YYYY [facility] 12/18/2023 9:13 AM EDT Jewell Estrada APRN POINT OF CARE TEST ORDERABLES Final Result [facility] [place], [place], [facility] Last 3 Months or Most Recently Relevant to Health Maintenance Insurance MEDICARE [id number] MEDICAID MEDICARE [id number] MEDICAID MEDICAID [place] [facility] [id number] MEDICAID Care Teams Behavior Clinician Relationship Specialty Start Date End Date Anabela Jin MD [address] [place] [address] [place] [phone] PCP - General Internal Medicine 11/24/23
--- OUTSIDE RECORDS SUMMARY | 2025-04-08 09:16 | XMS_ITS | Encounter Summary ---
Author Organization [facility] Address [address] [place] [address] Phone -x2013 Care Team Providers Care Farm Crew Leader Name Role Phone Anabela Jin MD Primary Care Provid er Reason for Visit * Reason Onset Date Comments Medication Problem 12/29/2023 semaglutide ( OZEMPIC) 0.25 mg or 0.5 mg (2 mg/3 mL) pen injector Advice Only 12/29/2023 Encounter Details Date Type Department Care Team ([facility] st Contact Info) Description 12/29/2023 [place] [address] Anabela Jin MD [address] [place] [address] [place] [phone] Medication Problem (semaglutide [...] James RN - 12/29/2023 4:15 PM EDT #[id number] jordanian interpretor Called back pt and relayed medication [...] she didn't understand the previous call with coordinator of genetic services states line was cutting out and requesting a callback to get clarification on Rx if pt has to take .25 or 0.5mg and for how long please callback to advise Specify Name of Medication: semaglutide (OZEMPIC) 0.25 mg or 0.5 mg (2 mg/3 mL) pen injector Refill status:0 Preferred Language:jordanian Caller was aware message would be routed to PCP team for review and F/U. Caller made aware of form policy. Caller verbalized understating and had no further question at this time. * Telephone Encounter - Priscilla Wilson - 12/29/2023 9:14 AM EDT Reason for call:states she didn't understand the previous call with coordinator of genetic services states line was cutting out and requesting a callback to get clarification on Rx if pt has to take .25 and for how longplease callback to advise Medication Issue/Schedule Appointment F/FU/Authorization Request: Specify Name of Medication:semaglutide (OZEMPIC) 0.25 mg or 0.5 mg (2 mg/3 mL) pen injector Refill status:0 Preferred Language:jordanian Caller was aware message would be routed [...] documented as of this encounter Care Teams Farm Crew Leader Relationship Specialty Start Date End Date Anabela Jin MD [address] [place] [address] [place] [phone] PCP - General Internal Medicine 11/24/23 documented as of this encounter
--- OUTSIDE RECORDS SUMMARY | 2025-04-08 09:16 | XMS_ITS | Encounter Summary ---
Author Organization [facility] Address [address] [place] [address] Phone -x2013 Care Team Providers Care Boat Person Name Role Phone Anabela Jin MD Primary Care Provid er Reason for Visit * Reason Comments Med Change Request Encounter Details Date Type Department Care Team (Late st Contact Info) Description 01/27/2024 [facility] [address] [place], [place] [id number] Jewell Estrada APRN [address] [place] [address] Med Change Request Social History [...] documented as of this encounter Care Teams Boat Person Relationship Specialty Start Date End Date Anabela Jin MD [address] [facility] [address] [place], [place] [phone] PCP - General Internal Medicine 11/24/23 documented as of this encounter
--- OUTSIDE RECORDS SUMMARY | 2025-04-08 09:16 | XMS_ITS | Encounter Summary ---
Author Organization [facility] Address [address] [place] [address] Phone -x2013 Care Team Providers Care Brim Setter Name Role Phone Anabela Jin MD Primary Care Provid er Reason for Visit * Reason Comments Medication Refill Encounter Details Date Type Department Care Team (Late st Contact Info) Description 02/25/2024 Refill [facility] [address] [place], [place] [phone] Jewell Estrada APRN [address] [place] [address] Medication Refill Social History Tobacco [...] documented as of this encounter Care Teams Brim Setter Relationship Specialty Start Date End Date Anabela Jin MD [address] [facility] [address] [place], [place] [phone] PCP - General Internal Medicine 11/24/23 documented as of this encounter
--- OUTSIDE RECORDS SUMMARY | 2025-04-08 09:16 | XMS_ITS | Encounter Summary ---
Author Organization [facility] Address [address] [place] [address] Phone -x2013 Care Team Providers Care Marketing Professor Name Role Phone Anabela Jin MD Primary Care Provid er Reason for Visit * Reason Comments Med Change Request Encounter Details Date Type Department Care Team (Late st Contact Info) Description 12/25/2023 [facility] [address] [place] [address] Jewell Estrada APRN [address] [place] [address] Med Change Request Social History [...] documented as of this encounter Care Teams Marketing Professor Relationship Specialty Start Date End Date Anabela Jin MD [address] [place] [address] [place] [phone] PCP - General Internal Medicine 11/24/23 documented as of this encounter
--- OUTSIDE RECORDS SUMMARY | 2025-04-08 09:16 | XMS_ITS | Clinical Summary ---
Author Organization [facility] Address [address] [place] [address], [place] [address] Care Team Providers Care Quotation Checker Name Role Phone Anabela Jin MD Primary Care Provider [phone] Allergies Active Allergy Reactions Criticality Noted Date [...] Medicaid [place] Care Teams Quotation Checker Relationship Specialty Start Date End Date Anabela Jin MD 2 [facility] [address] [place] [address] PCP - General Internal Medicine 09/03/21
[2025-04-08 09:24] LABS: Resp Syncy Virus RNA Qual PCR NEGATIVE (Negative); SARS COV2 PCR INHOUSE NEGATIVE (Negative)
[2025-04-08 10:12] LABS: B Type Natriuretic Peptide 139 pg/mL (<100)
[2025-04-08 10:35] VITALS: BP 127/59; PULSE 97; RESP 18; TEMP 36.9; O2SAT 96
[2025-04-08 12:18] LABS: Troponin-I High Sensitivity 7.4 ng/L (<3.5-17.0)
[2025-04-08 13:14] VITALS: BP 140/77; PULSE 93; RESP 12; TEMP 36.9; O2SAT 97
[2025-04-08 14:10] VITALS: BP 139/74; PULSE 92; RESP 18; O2SAT 96
[2025-04-08 15:03] VITALS: BP 139/74; PULSE 92; RESP 18; TEMP 36.8; O2SAT 96
== END 2025-04-08 15:03 | disposition home or self-care (01) ==
PROVIDERS: Emergency Provider Emergency Medicine; PCP Internal Medicine
DX: J20.9 Acute bronchitis, unspecified (principal); I10 Essential (primary) hypertension; F03.90 Unspecified dementia, unspecified severity, without behavioral disturbance, psychotic disturbance, mood disturbance, and anxiety; E11.9 Type 2 diabetes mellitus without complications; Z86.79 Personal history of other diseases of the circulatory system; Z79.899 Other long term (current) drug therapy
CPT/HCPCS: 36415; 71046; 71250; 80053; 83605; 83880; 84484; 85025; 87040; 87637; 93005; 96360; 96361; 99284; 99285

== ENCOUNTER → 2025-04-08 07:34 | Outpatient (BNV) | payer MEDICARE, MEDICAID, SELFPAY | PROVIDERS: Emergency Provider Emergency Medicine; PCP Internal Medicine; Visit Provider Internal Medicine Cardiovascular Disease | DX: R00.0 Tachycardia, unspecified (principal) | CPT/HCPCS: 93010 ==

== ENCOUNTER → 2025-04-08 07:52 | Outpatient (BNV) | payer MEDICARE, MEDICAID, SELFPAY | PROVIDERS: Emergency Provider Emergency Medicine; PCP Internal Medicine; Visit Provider Radiology Diagnostic Radiology | DX: I51.7 Cardiomegaly (principal); I25.84 Coronary atherosclerosis due to calcified coronary lesion | CPT/HCPCS: 71046; 71250 ==

== ENCOUNTER 2025-04-19 09:38 | Outpatient (REF) | payer MEDICARE, MEDICAID, SELFPAY ==
--- OUTSIDE RECORDS SUMMARY | 2025-04-19 11:27 | XMS_ITS | Clinical Summary ---
Author Organization [facility] Address [address] [place] [address] Care Team Providers Care Solution Make Up Operator Name Role Phone Anabela Jin MD Primary Care Provider [phone] Allergies Active Allergy Reactions Criticality Noted Date [...] patient's age to complete this topic Insurance [facility] MEDICARE PART A & B Care Teams Solution Make Up Operator Relationship Specialty Start Date End Date Anabela Jin MD [address] [facility] [address] [place] [phone] PCP - General Family Medicine 02/17/21
--- OUTSIDE RECORDS SUMMARY | 2025-04-19 11:27 | XMS_ITS | Encounter Summary ---
Author Organization [facility] Address [address] [place] [address] Phone -x2013 Care Team Providers Care Doctor Of Medicine Name Role Phone Anabela Jin MD Primary Care Provid er Reason for Visit * Reason Onset Date Comments Medication Problem 12/29/2023 semaglutide ( OZEMPIC) 0.25 mg or 0.5 mg (2 mg/3 mL) pen injector Advice Only 12/29/2023 Encounter Details Date Type Department Care Team ([facility] st Contact Info) Description 12/29/2023 [place] [address] Anabela Jin MD [address] [place] [address] [place] [phone] Medication Problem (semaglutide [...] James RN - 12/29/2023 4:15 PM EDT #[id number] luxembourger interpretor Called back pt and relayed medication [...] she didn't understand the previous call with asl interpreter states line was cutting out and requesting a callback to get clarification on Rx if pt has to take .25 or 0.5mg and for how long please callback to advise Specify Name of Medication: semaglutide (OZEMPIC) 0.25 mg or 0.5 mg (2 mg/3 mL) pen injector Refill status:0 Preferred Language:luxembourger Caller was aware message would be routed to PCP team for review and F/U. Caller made aware of form policy. Caller verbalized understating and had no further question at this time. * Telephone Encounter - Priscilla Wilson - 12/29/2023 9:14 AM EDT Reason for call:states she didn't understand the previous call with asl interpreter states line was cutting out and requesting a callback to get clarification on Rx if pt has to take .25 and for how longplease callback to advise Medication Issue/Schedule Appointment F/FU/Authorization Request: Specify Name of Medication:semaglutide (OZEMPIC) 0.25 mg or 0.5 mg (2 mg/3 mL) pen injector Refill status:0 Preferred Language:luxembourger Caller was aware message would be routed [...] documented as of this encounter Care Teams Doctor Of Medicine Relationship Specialty Start Date End Date Anabela Jin MD [address] [place] [address] [place] [phone] PCP - General Internal Medicine 11/24/23 documented as of this encounter
--- OUTSIDE RECORDS SUMMARY | 2025-04-19 11:27 | XMS_ITS | Encounter Summary ---
Author Organization [facility] Address [address] [place] [address] Phone -x2013 Care Team Providers Care Public Relations Studies Director Name Role Phone Anabela Jin MD Primary Care Provid er Reason for Visit * Reason Comments Med Change Request Encounter Details Date Type Department Care Team (Late st Contact Info) Description 02/05/[address] [address] Jewell Estrada APRN [address] [place] [address] Med Change Request Social History [...] documented as of this encounter Care Teams Public Relations Studies Director Relationship Specialty Start Date End Date Anabela Jin MD [address] [place] [address] [place] [phone] PCP - General Internal Medicine 11/24/23 documented as of this encounter
--- OUTSIDE RECORDS SUMMARY | 2025-04-19 11:27 | XMS_ITS | Clinical Summary ---
Author Organization [facility] Address [address] [place] [address], [place] [address] Care Team Providers Care Sewing Machine Repairer Helper Name Role Phone Anabela Jin MD [...] Medicaid [place] Medicare [place] Care Teams Sewing Machine Repairer Helper Relationship Specialty Start Date End Date Anabela Jin MD 2 [facility] [address] [place] [address] PCP - General Internal Medicine 09/03/21
--- OUTSIDE RECORDS SUMMARY | 2025-04-19 11:27 | XMS_ITS | Encounter Summary ---
Author Organization [facility] Address [address] [place] [address] Phone -x2013 Care Team Providers Care Snout Puller Name Role Phone Anabela Jin MD Primary Care Provid er Reason for Visit * Reason Comments Med Change Request Encounter Details Date Type Department Care Team (Late st Contact Info) Description 12/25/2023 [facility] [address] [place] [address] Jewell Estrada APRN [address] [place] [address] Med Change Request Social History [...] documented as of this encounter Care Teams Snout Puller Relationship Specialty Start Date End Date Anabela Jin MD [address] [place] [address] [place] [phone] PCP - General Internal Medicine 11/24/23 documented as of this encounter
--- OUTSIDE RECORDS SUMMARY | 2025-04-19 11:27 | XMS_ITS | Encounter Summary ---
Author Organization [facility] Address [address] [place] [address] Phone -x2013 Care Team Providers Care Form Setter Steel Pan Forms Name Role Phone Anabela Jin MD Primary Care Provid er Reason for Visit * Reason Onset Date Comments Medication Problem 12/25/2023 dulaglutide 3 mg/0.5 mL PnIj Encounter Details Date Type Department Care Team (Late st Contact Info) Description 12/25/[address] [address] Anabela Jin MD [address] [place] [address] [place] [phone] Medication Problem (dulaglutide [...] 3 mg/0.5 mL PnIj Refill status: Preferred Language:Persian Caller was aware message would be routed [...] documented as of this encounter Care Teams Form Setter Steel Pan Forms Relationship Specialty Start Date End Date Anabela Jin MD [address] [place] [address] [place] [phone] PCP - General Internal Medicine 11/24/23 documented as of this encounter
--- OUTSIDE RECORDS SUMMARY | 2025-04-19 11:27 | XMS_ITS | Encounter Summary ---
Author Organization [facility] Address [address] [place] [address] Phone -x2013 Care Team Providers Care Sociology Adjunct Instructor Name Role Phone Anabela Jin MD Primary Care Provid er Reason for Visit * Reason Comments Med Change Request Encounter Details Date Type Department Care Team (Late st Contact Info) Description 01/27/[address] [facility] [address] [place], [place] [phone] Jewell Estrada APRN [address] [place] [address] Med Change Request Social History [...] documented as of this encounter Care Teams Sociology Adjunct Instructor Relationship Specialty Start Date End Date Anabela Jin MD [address] [facility] [address] [place], [place] [phone] PCP - General Internal Medicine 11/24/23 documented as of this encounter
--- OUTSIDE RECORDS SUMMARY | 2025-04-19 11:27 | XMS_ITS | Encounter Summary ---
Author Organization [facility] Address [address] [place] [address] Phone -x2013 Care Team Providers Care High School Assistant Football Coach Name Role Phone Anabela Jin MD Primary Care Provid er Reason for Visit * Reason Comments Medication Refill Encounter Details Date Type Department Care Team (Late st Contact Info) Description 02/25/2024 Refill [facility] [address] [place], [place] [phone] Jewell Estrada APRN [address] [place] [address] Medication Refill Social History Tobacco [...] of this encounter Care Teams High School Assistant Football Coach Relationship Specialty Start Date End Date Anabela Jin MD [address] [facility] [address] [place], [place] [phone] PCP - General Internal Medicine 11/24/23 documented as of this encounter
--- OUTSIDE RECORDS SUMMARY | 2025-04-19 11:27 | XMS_ITS | Clinical Summary ---
Author Organization [facility] Address [address] [place] [address] Phone Care Team Providers Care Photo Mask Pattern Generator Name Role Phone Anabela Jin MD Primary [...] Urine Microalbumin 01/14/2025 01/15/2024, 12/18/2023 Influenza vaccine 02/25/2025 04/04/2023, , 06/10/2019, Additional history exists Covid-19 vaccine series (2024- season) 2025 07/02/2022, 11/28/2021, 01/13/2021, Additional history exists RSV Immunization (1 - [...] Comment Performing Lab: Site ID: [id number] Name: [facility] Address: [address] [place] [id number] Director: Robbin Monroy M.D. Jewell Estrada APRN URINE ORDERABLES Final Result [facility] [address] [place] [address] * (ABNORMAL) Lipid panel with reflex to [...] LDL-C. Wade SS et al. MAXIMILIANO. 2013;310(19): 8286-7763 (http://education.olook/faq/BYC285) Chol/HDL Ratio 5.7(H) <5.0 (calc) [facility] [...] Comment Performing Lab: Site ID: [id number] Name: [facility] Address: [address] [place] [id number] Director: Robbin Monroy M.D. us Jewell Estrada APRN LAB BLOOD ORDERABLES Final Re sult [facility] [address] * POCT glycosylated hemoglobin (HgbA1c), total (08663) (12/18/2023 9:13 AM EDT) Hemoglobin A1C, POC 11.3 4.0 - 6.0 % [facility] Test Lot Number [id number] [facility] Test Lot Exp Date 09/08/25 Date Format: MM/DD/YYYY [facility] 12/18/2023 9:13 AM EDT Jewell Estrada APRN POINT OF CARE TEST ORDERABLES Final Result [facility] [place], [place], [facility] from Last 3 Months or Most Recently Relevant to Health Maintenance Insurance MEDICARE [id number] MEDICAID MEDICARE [id number] MEDICAID MEDICAID [facility] [id number] MEDICAID Care Teams Photo Mask Pattern Generator Relationship Specialty Start Date End Date Anabela Jin MD [address] [place] [address] [place] [phone] PCP - General Internal Medicine 11/24/23
[2025-04-19 12:54] LABS: Anion Gap 13 (12-20)
[2025-04-19 12:59] LABS: Alanine Aminotransferase 13 U/L (0-31); Albumin Level 4.4 g/dL (3.5-5.0); Alkaline Phosphatase 65 U/L (39-117); Aspartate Amino Transferase 19 U/L (5-31); Blood Urea Nitrogen 15 mg/dL (9-16); Calcium 9.5 mg/dL (8.4-10.2); Carbon Dioxide 26 mmol/L (22-29); Chloride 109 mmol/L (96-108); Cholesterol 250 mg/dL (<200); Estimated Glomerular Filt Rate > 60; HDL Cholesterol 41 mg/dL (>40); Iron 44 mcg/dL (30-160); Percent Iron Saturation 19 % (15-50); Potassium 3.7 mmol/L (3.3-5.1); Sodium 144 mmol/L (135-145); Total Iron Binding Capacity 232 mcg/dL (228-428); Total Protein 7.7 g/dL (6.5-8.0); Triglycerides 219 mg/dL (<150); Unsaturated Iron Binding 188 ug/dL
== END 2025-04-19 09:39 | disposition home or self-care (01) ==
LOC: HO.LAB 09:38
PROVIDERS: PCP Internal Medicine; Visit Provider Internal Medicine
DX: K21.9 Gastro-esophageal reflux disease without esophagitis (principal); D64.9 Anemia, unspecified; E55.9 Vitamin D deficiency, unspecified; E78.5 Hyperlipidemia, unspecified
CPT/HCPCS: 36415; 80053; 80061; 82306; 83540; 85025

== ENCOUNTER 2025-04-26 13:45 | Outpatient (REF) | payer MEDICARE, MEDICAID, SELFPAY ==
[2025-04-26 19:00] LABS: Microalbum/Creatinine Ratio Ur 272.5 ug/mg cr (<30)
== END 2025-04-26 13:46 | disposition home or self-care (01) ==
LOC: HO.LNP 13:45
PROVIDERS: PCP Internal Medicine; Visit Provider Internal Medicine
DX: E11.9 Type 2 diabetes mellitus without complications (principal); I10 Essential (primary) hypertension; K21.9 Gastro-esophageal reflux disease without esophagitis; R80.9 Proteinuria, unspecified; E78.5 Hyperlipidemia, unspecified; D64.9 Anemia, unspecified; Z79.4 Long term (current) use of insulin; Z79.84 Long term (current) use of oral hypoglycemic drugs; Z79.899 Other long term (current) drug therapy
CPT/HCPCS: 82043; 82570; 99212

== ENCOUNTER 2025-04-26 13:45 | Outpatient (AMB) | payer MEDICARE, MEDICAID, SELFPAY ==
--- NOTE | 2025-04-26 13:53 | A.OFFPC_ITS ---
Vital Signs 04/26/25 13:55 Height 5 ft 2 in Weight 149 lb BMI 27.2 BP 120/70 Blood Pressure Location Lt brachial Position Sitting Pulse 84 Pulse Source Pulse Oximeter Temp 97.1 F Temp Source Temporal Artery Scan Pulse Oximetry (%) 96 Oxygen Delivery Method Room Air Intake Visit Reasons: dm Intake Note: Patient is here to follow up on DM. Automotive Parts Clerk Required: No Senior Web Analyst: Present Accompanied by: Daughter Allergies lisinopril Allergy (Severe, Verified 04/26/25 14:25) Swelling metformin Allergy (Intermediate, Verified 04/26/25 14:25) Intolerance, chest pain, high BP, diarrhea pantoprazole Allergy (Intermediate, Verified 04/26/25 14:25) rash quetiapine Allergy (Intermediate, Verified 04/26/25 14:25) chest pain empagliflozin (From Jardiance) Adverse Reaction (Intermediate, Verified 04/26/25 14:25) uti atorvastatin Adverse Reaction (Mild, Verified 04/26/25 14:25) Diarrhea orange juice Allergy (Intermediate, Uncoded 04/26/25 14:25) gerd Medication List - Last Reconciled 04/26/25 by Anabela Thompson MD acetaminophen (Tylenol) 325 mg PO QID PRN acetaminophen 500 mg PO Q6H PRN adhesive tape (Band-Aid Paper Tape) As directed [adult diapers pull-ups Use 1 diaper 6 times a day] amlodipine 10 mg PO DAILY 90 days benzonatate 200 mg PO TID PRN blood sugar diagnostic (FreeStyle Lite Strips) 3 times a day 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 meter (FreeStyle Lite Meter kit) 3 times a day 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 sensor (FreeStyle Stephon 3 Sensor device) apply new sensor every 14 days as directed 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 sensor (FreeStyle Stephon 3 Plus Sensor device) Apply 1 new sensor every 14 days as directed to monitor blood glucose continuously. 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,signwriter,cont (FreeStyle Stephon 3 Hubbard) as directed chlorthalidone 25 mg PO DAILY cholecalciferol (vitamin D3) 25 mcg PO DAILY commode As directed [compression stockings knee high As directed] Dexilant (dexlansoprazole) 60 mg PO DAILY NS dicyclomine 20 mg PO QID 30 days doxycycline monohydrate 100 mg PO BID 7 days dulaglutide (Trulicity) 3 mg (0.5 mL) subcut QWEEK elastic bandage (Coban Self-Adherent Wrap) As directed ezetimibe 10 mg PO DAILY 90 days ferrous sulfate 325 mg PO DAILY 90 days fluticasone propionate 50 mcg/actuation (Flonase Allergy Relief) 1 spray intranasal DAILY furosemide 40 mg PO DAILY gauze bandage (Band-Aid Gauze Pads) As directed glipizide ER 2.5 mg PO DAILY glucose (Dex4 Glucose) 16 grams (4 x 4 gram) PO Q15M PRN insulin glargine (Lantus Solostar U-100 Insulin) 10 units (0.1 mL) subcut QPM lactulose 10 grams (15 mL) PO BEDTIME PRN 30 days lancets (FreeStyle Lancets) 3 times a day loperamide (Imodium A-D) 2 mg PO BID metoclopramide HCl (Reglan) 10 mg PO QIDACHS miscellaneous medical supply As directed nitrofurantoin monohyd/m-cryst 100 mg (Macrobid) 100 mg PO BID omega-3 fatty acids-fish oil 300-1,000 mg 1 cap PO BID pen needle, diabetic (Comfort EZ Pen [place]) Use 1 pen needle once a day [personal wipes As directed] rosuvastatin 10 mg PO BEDTIME Shower Chair As directed simethicone (Gas Relief (simethicone)) 180 mg PO BID PRN 90 days sucralfate (Carafate) 10 mL PO QIDACHS tramadol 50 mg PO BID PRN 30 days [walker with seat As directed] [wheelchair As directed] Tobacco use date assessed: 04/26/25 Fall risk assessment: No Falls in past year Last assessed Fall Risk: 04/26/25 Dental Screening Dental Screen Date: 12/23/24 HPI HPI Comments History of Present Illness Details The patient is a 70-year-old female presenting with a follow-up on chronic conditions and laboratory results. Hypertension has been managed with multiple antihypertensive medications, including amlodipine and chlorthalidone, with a current blood pressure reading of 120/70 mmHg. The patient is allergic to lisinopril, which limits some treatment options. The patient has a history of hyperlipidemia, currently managed with ezetimibe. There is a plan to increase the cholesterol medication due to suboptimal control. Anemia has been noted with a hemoglobin level of 11.6 g/dL, slightly below the normal range. Iron supplementation is part of the management plan. Diabetes mellitus is being managed with glipizide and Lantus, with a recent HbA1c of 7.6%. The patient's blood glucose levels have been stable, with no recent episodes of hypoglycemia. The patient experiences constipation, managed with lactulose. Gastroesophageal reflux disease is treated with metoclopramide. Preventative care includes osteoporosis screening, with a bone density test planned to assess for osteoporosis. Colon cancer screening is also part of the preventative care plan, with a colonoscopy being considered due to the patient's age and history. [facility] Medical History (Updated 04/26/25 @ 15:07 by Anabela Thompson MD) UTI symptoms Recurrent UTI (urinary tract infection) Diabetes mellitus Dysuria Urinary frequency Aortic stenosis Uncontrolled type 2 diabetes mellitus with hyperglycemia, with long-term current use of insulin Shortness of breath Chest pain Fissure in skin of foot Impacted cerumen of left ear Dyspepsia Cyst of skin Left shoulder pain Hospital discharge follow-up Medicare annual wellness visit, subsequent Cellulitis of left leg Dementia Retinitis pigmentosa of both eyes GERD (gastroesophageal reflux disease) Obesity (BMI 30-39.9) Vitamin D deficiency Dyslipidemia Hypertension Diabetic polyneuropathy associated with type 2 diabetes mellitus Diabetic nephropathy associated with type 2 diabetes mellitus Diabetes type 2, uncontrolled Surgical History History of esophagogastroduodenoscopy (EGD) H/O colonoscopy Hx of cholecystectomy Hx of tubal ligation Hx of hernia repair Family History Father No problems noted. Mother Heart disease HTN (hypertension) Sister Pre-diabetes Brother Leukemia Son In good health Daughter In good health Daughter In good health Social History Household Members: Family Housing: Apartment Alcohol intake: never Patient Tobacco Use Status: Never used Tobacco e-Cigarette/Vaping Use: Never Used Second Hand Smoke Exposure: No service: No Current occupational status: disabled Cognitive needs: No Hearing needs: No Vision needs: No Questionnaire Thrive Questionnaire Date Thrive assessed: 12/23/24 I am a: Patient What is your living situation today?: I have a steady place to live Within the past 12 months, did the food you bought not last and you didn't have the money to get more?: Sometimes True Within the past 12 months, did you worry whether your food would run out before you got money to buy more?: Sometimes True Do you have trouble paying for medicines?: No Do you have trouble getting transportation to medical appointments?: No Do you have trouble paying your heating and electricity bill?: No Do you have trouble taking care of your child, family member or friend?: No Do you have trouble with day-to-day activities such as bathing, preparing meals, shopping, managing finances, etc.?: Yes Are you currently unemployed and looking for a job?: No Are you interested in more education?: I choose not to answer this question Please select the resources that you would like help with: None Currently or been in a relationship where the following occur: No concerns reported THRIVE Score: 2 AUDIT C Alcohol Use Questionnaire (AUDIT-C) 3. How often do you have six or more drinks on one occasion?: Never Total Score: 0 KALIE-7 AMB Questionnaire KALIE-7 Date KALIE - 7 assessed: 12/23/24 Source: Developed by Drs. Jean Francis, Prisca Drew, Eliseo Suarez and colleagues, with an educational logan from [employer]. Review of Systems Const All systems reviewed & are unremarkable except as noted in HPI and below Card Denies chest pain at rest, Denies chest pain with activity, Denies edema, Denies irregular heart rhythm, Denies claudication, Denies dyspnea, Denies dyspnea on exertion, Denies orthopnea, Denies paroxysmal nocturnal dyspnea and Denies slow heart rate Resp Denies cough, Denies dyspnea and Denies dyspnea on exertion GI Denies abdominal pain, Denies change in bowel habits, Denies excessive flatus, Denies nausea and Denies vomiting Physical exam (Primary Care) Vital Signs: Last Vital Signs Temp 97.1 F 04/26/25 13:55 Pulse 84 04/26/25 13:55 BP 120/70 04/26/25 13:55 Pulse Ox 96 04/26/25 13:55 Oxygen Delivery Method Room Air 04/26/25 13:55 BMI result Body Mass Index 27.2 Tobacco/Smoking Status: Tobacco use Status Tobacco use date assessed 04/26/25 04/26/25 14:00 Patient Tobacco Use Status Never used Tobacco 04/26/25 14:00 e-Cigarette/Vaping Use Never Used 04/26/25 14:00 Thrive Assessment: Date of Thrive Assessment Date Thrive assessed 12/23/24 04/26/25 14:00 Currently or been in a relationship where the following occur: No concerns reported Resp Effort & Inspection: normal respiratory effort Auscultation: clear to auscultation bilaterally Cardio Jugular venous distension: no JVD Rate: regular rate Rhythm: regular rhythm Heart sounds: S1 normal heart sound present and S2 normal heart sound present Extrem General: Yes full ROM Coding Level of Care Code Est Pt Level 4 (09990) Complex EM visit Add On G2211 Diagnoses Diabetes mellitus E11.9 Dyslipidemia E78.5 Essential hypertension I10 Hypertension type: essential hypertension Chronic GERD K21.9 Anemia D64.9 Time Spent (min) 23 Assessment & Plan Assessment & Plan (1) Diabetes mellitus: Code(s): E11.9 - Type 2 diabetes mellitus without complications Category: Medical (2) Dyslipidemia: Code(s): E78.5 - Hyperlipidemia, unspecified Category: Medical (3) Hypertension: Code(s): I10 - Essential (primary) hypertension Category: Medical Qualifiers: Hypertension type: essential hypertension Qualified Code(s): I10 - Essential (primary) hypertension (4) Chronic GERD: Code(s): K21.9 - Gastro-esophageal reflux disease without esophagitis Category: Medical (5) Anemia: Code(s): D64.9 - Anemia, unspecified Category: Medical Plan Plan Patient was informed and verbally consented to the use of an ambient scribe for clinic note documentation during this visit. 1. Hypertension The patient's hypertension is currently managed with amlodipine and chlorthalidone, achieving a blood pressure of 120/70 mmHg. The patient is allergic to lisinopril, which limits some treatment options. 2. Hyperlipidemia The patient is on ezetimibe for hyperlipidemia, with plans to increase the medication due to suboptimal control. 3. Anemia Anemia is noted with a hemoglobin level of 11.6 g/dL, and iron supplementation is part of the management plan. 4. Diabetes Mellitus Diabetes mellitus is managed with glipizide and Lantus, with a recent HbA1c of 7.6%. The patient's blood glucose levels have been stable, with no recent episodes of hypoglycemia. 5. Constipation Constipation is managed with lactulose. 6. Gastroesophageal Reflux Disease Gastroesophageal reflux disease is treated with metoclopramide. 7. Preventative Care: Osteoporosis Screening A bone density test is planned to assess for osteoporosis as part of preventative care. 8. Preventative Care: Colon Cancer Screening A colonoscopy is being considered for colon cancer screening due to the patient's age and history. Orders: Orders Microalbumin, Random (w Creat) Today R80.9 - Proteinuria, unspecified Comprehensive [place]. Panel Fast 4 Months E11.9 - Type 2 diabetes mellitus without complications Vitamin B12 and Folate 4 Months E53.8 - Deficiency of other specified B group vitamins Complete Blood Count Auto Diff 4 Months D64.9 - Anemia, unspecified XR lumbar spine 2-3V Today M54.50 - Low back pain, unspecified AMB Urinalysis Automated Today Z13.9 - Encounter for screening, unspecified XR DEXA axial skeleton Today Z78.0 - Asymptomatic menopausal state Lipid Panel 4 Months E78.5 - Hyperlipidemia, unspecified Vitamin D 25-OH Total 4 Months E55.9 - Vitamin D deficiency, unspecified IRON PROFILE 4 Months D64.9 - Anemia, unspecified Referrals Gastroenterology Referral Z12.11 - Encounter for screening for malignant neoplasm of colon Medications: Refilled ferrous sulfate 325 mg PO DAILY 90 tabs 1RF 90 days
[2025-04-26 13:55] VITALS: BP 120/70; PULSE 84; TEMP 36.2; O2SAT 96; BMI 27.2
--- OUTSIDE RECORDS SUMMARY | 2025-04-26 15:04 | XMS_ITS | Encounter Summary ---
Author Organization [facility] Address [address] [place] [address] Phone -x2013 Care Team Providers Care Shake Sawyer Name Role Phone Anabela Jin MD Primary Care Provid er Reason for Visit * Reason Onset Date Comments Medication Problem 12/25/2023 dulaglutide 3 mg/0.5 mL PnIj Encounter Details Date Type Department Care Team (Late st Contact Info) Description 12/25/[address] [address] Anabela Jin MD [address] [place] [address] [place] [phone] Medication Problem (dulaglutide [...] 3 mg/0.5 mL PnIj Refill status: Preferred Language:Luxembourgish Caller was aware message would be routed [...] documented as of this encounter Care Teams Shake Sawyer Relationship Specialty Start Date End Date Anabela Jin MD [address] [place] [address] [place] [phone] PCP - General Internal Medicine 11/24/23 documented as of this encounter
--- OUTSIDE RECORDS SUMMARY | 2025-04-26 15:04 | XMS_ITS | Encounter Summary ---
Author Organization [facility] Address [address] [place] [address] Phone -x2013 Care Team Providers Care Aircraft Maintenance Manager Name Role Phone Anabela Jin MD Primary Care Provid er Reason for Visit * Reason Comments Med Change Request Encounter Details Date Type Department Care Team (Late st Contact Info) Description 01/27/2024 [facility] [address] [place], [place] [phone] Jewell Estrada APRN [address] [place] [address] Med Change Request Social History [...] documented as of this encounter Care Teams Aircraft Maintenance Manager Relationship Specialty Start Date End Date Anabela Jin MD [address] [facility] [address] [place], [place] [phone] PCP - General Internal Medicine 11/24/23 documented as of this encounter
--- OUTSIDE RECORDS SUMMARY | 2025-04-26 15:04 | XMS_ITS | Clinical Summary ---
Author Organization [facility] Address [address] [place] [address] Care Team Providers Care Employment Security Officer Name Role Phone Anabela Jin MD [...] patient's age to complete this topic Insurance [facility] MEDICARE PART A & B Care Teams Employment Security Officer Relationship Specialty Start Date End Date Anabela Jin MD [address] [place] [phone] PCP - General Family Medicine 02/17/21
--- OUTSIDE RECORDS SUMMARY | 2025-04-26 15:04 | XMS_ITS | Encounter Summary ---
Author Organization [facility] Address [address] [place] [address] Phone -x2013 Care Team Providers Care Remelt Operator Name Role Phone Anabela Jin MD Primary Care Provid er Reason for Visit * Reason Comments Med Change Request Encounter Details Date Type Department Care Team (Late st Contact Info) Description 02/05/[address] [address] Jewell Estrada APRN [address] [place] [address] Med Change Request Social History [...] use of insulin (HC Code) (HC CODE) documented in this encounter Additional Health Concerns Assessment Noted Time PHQ-9 Depression Total Score: 0 12/18/19 9:05 AM EDT documented as of this encounter Care Teams Remelt Operator Relationship Specialty Start Date End Date Anabela Jin MD [address] [place] [address] [place] [phone] PCP - General Internal Medicine 11/24/23 documented as of this encounter
--- OUTSIDE RECORDS SUMMARY | 2025-04-26 15:04 | XMS_ITS | Encounter Summary ---
Author Organization [facility] Address [address] [place] [address] Phone -x2013 Care Team Providers Care Obiee Lead Developer Name Role Phone Anabela Jin MD Primary Care Provid er Reason for Visit * Reason Comments Med Change Request Encounter Details Date Type Department Care Team (Late st Contact Info) Description 12/25/2023 [facility] [address] [place], [place] [phone] Jewell Estrada APRN [address] [place] [address] Med Change Request Social History [...] documented as of this encounter Care Teams Obiee Lead Developer Relationship Specialty Start Date End Date Anabela Jin MD [address] [place] [address] [place] [phone] PCP - General Internal Medicine 11/24/23 documented as of this encounter
--- OUTSIDE RECORDS SUMMARY | 2025-04-26 15:04 | XMS_ITS | Encounter Summary ---
Author Organization [facility] Address [address] [place] [address] Phone -x2013 Care Team Providers Care Flight Steward Name Role Phone Anabela Jin MD Primary Care Provid er Reason for Visit * Reason Onset Date Comments Medication Problem 12/29/2023 semaglutide ( OZEMPIC) 0.25 mg or 0.5 mg (2 mg/3 mL) pen injector Advice Only 12/29/2023 Encounter Details Date Type Department Care Team ([facility] st Contact Info) Description 12/29/[address] [address] Anabela Jin MD [address] [place] [address] [place] [phone] Medication Problem (semaglutide [...] James RN - 12/29/2023 4:15 PM EDT #[id number] namibian interpretor Called back pt and relayed [...] she didn't understand the previous call with sheriff sergeant [place] line was cutting out and requesting [...] she didn't understand the previous call with sheriff sergeant [place] line was cutting out and requesting [...] documented as of this encounter Care Teams Flight Steward Relationship Specialty Start Date End Date Anabela Jin MD [address] [place] [address] [place] [phone] PCP - General Internal Medicine 11/24/23 documented as of this encounter
--- OUTSIDE RECORDS SUMMARY | 2025-04-26 15:04 | XMS_ITS | Clinical Summary ---
Author Organization [facility] Address [address] [place] [address], [place] [address] Care Team Providers Care Pull Up Hand Name Role Phone Anabela Jin MD Primary Care Provider [phone] Allergies Active Allergy Reactions Criticality Noted Date [...] Medicaid [place] Care Teams Pull Up Hand Relationship Specialty Start Date End Date Anabela Jin MD [address] [facility] [address] [place] [address] PCP - General Internal Medicine 09/03/21
--- OUTSIDE RECORDS SUMMARY | 2025-04-26 15:04 | XMS_ITS | Clinical Summary ---
Author Organization [facility] Address [address] [place] [address] Phone Care Team Providers Care Computer Systems Architect Name Role Phone Anabela Jin MD Primary [...] with type 2 diabetes mellitus (HC Code) (HC CODE) Take 1 tablet (40 mg total) by mouth daily. 90 tablet 1 4 Active insulin pen needle, 4 mm x 32 gaugeIndications: Type 2 diabetes mellitus with hyperglycemia, without long-term current use of insulin (HC Code) (HC CODE) Use daily to administer Victoza 100 each [...] use of insulin (HC Code) (HC CODE) Inject 0.75 mLs (1 mg total) under the skin once a week. 3 mL 4 Active aspirin 81 mg EC delayed release tabletIndications :Type 2 diabetes mellitus with hyperglycemia, without long-term current use of insulin (HC Code) (HC CODE) Take 1 tablet (81 mg total) by [...] urine, random (01/15/2024 9:09 AM EDT) Pathologist [facility] Creatinine, Random Urine 166 20 - 275 [...] Comment Performing Lab: Site ID: [id number] Name: [facility] Address: [address] [place] [phone] Director: Robbin Monory M.D. Jewell Estrada APRN URINE ORDERABLES Final Result [facility] [address] [place] [address] * (ABNORMAL) Lipid panel with reflex to direct LDL (Q) (12/18/2023 11:43 AM EDT) [facility] Cholesterol, Total 284(H) <200 mg/dL [facility] [...] factors. LDL-C is now calculated using the Carol calculation, which is a validated novel method providing better accuracy than the Friedewald equation in the estimation of LDL-C. Wade VARGAS et al. MAXIMILIANO. 2013;310(19): 2906-8496 (http://education.Flyr.Run3D/faq/SAW692) Chol/HDL Ratio 5.7(H) <5.0 (calc) [facility] [...] Comment Performing Lab: Site ID: [id number] Name: [facility] Address: [address] [place] [phone] Director: Robbin Monroy M.D. Jewell Estrada APRN LAB BLOOD ORDERABLES Final Re sult [facility] [address] [place] [address], [place] * POCT glycosylated hemoglobin (HgbA1c), total (84458) (12/18/2023 9:13 AM EDT) Hemoglobin A1C, POC 11.3 4.0 - 6.0 % [facility] Test Lot Number [id number] [facility] Test Lot Exp Date 09/08/25 Date Format: MM/DD/YYYY [facility] 12/18/2023 9:13 AM EDT Jewell Estrada APRN POINT OF CARE TEST ORDERABLES Final Result [facility] [place], [place], [facility] from Last 3 Months or Most Recently Relevant to Health Maintenance Insurance MEDICARE [id number] MEDICAID MEDICARE [id number] MEDICAID MEDICAID [place] [facility] MGD MEDICARE [id number] MEDICAID Care Teams Computer Systems Architect Relationship Specialty Start Date End Date Anabela Jin MD [address] [place] [address] [place] [phone] PCP - General Internal Medicine 11/24/23
--- OUTSIDE RECORDS SUMMARY | 2025-04-26 15:04 | XMS_ITS | Clinical Summary ---
Author Organization [employer] Address [address] [facility] [address] [place] [address] Care Team Providers Care Dental Patient Coordinator Name Role Phone Unavailable Primary Care [...] patient's age to complete this topic Insurance [facility] STANDARD MEDICARE Member Subscriber Plan / Payer ([facility] 07/15/2022-Present) Name:Annette Mills Member ID:[id number] Relation to Subscriber:Self Name:Annette Mills Subscriber ID:[id number] Payer ID:[id number] Group ID:Not on file Type:Medicare Address: [facility] [place] [phone]
--- OUTSIDE RECORDS SUMMARY | 2025-04-26 15:04 | XMS_ITS | Encounter Summary ---
Author Organization [facility] Address [address] [place] [address] Phone -x2013 Care Team Providers Care Industrial Coffee Grinder Name Role Phone Anabela Jin MD Primary Care Provid er Reason for Visit * Reason Comments Medication Refill Encounter Details Date Type Department Care Team (Late st Contact Info) Description 02/25/2024 Refill [facility] [address] [place], [place] [phone] Jewell Estrada APRN [address] [place] [address] Medication Refill Social History Tobacco [...] documented as of this encounter Care Teams Industrial Coffee Grinder Relationship Specialty Start Date End Date Anabela Jin MD [address] [facility] [address] [place], [place] [phone] PCP - General Internal Medicine 11/24/23 documented as of this encounter
== END 2025-04-26 14:52 | disposition home or self-care (01) ==
LOC: HO.HMCH 13:46
PROVIDERS: PCP Internal Medicine; Visit Provider Internal Medicine
DX: E11.9 Type 2 diabetes mellitus without complications (principal); E78.5 Hyperlipidemia, unspecified; I10 Essential (primary) hypertension; K21.9 Gastro-esophageal reflux disease without esophagitis; D64.9 Anemia, unspecified

== ENCOUNTER 2025-05-04 10:35 | Outpatient (AMB) | payer MEDICARE, MEDICAID, SELFPAY ==
--- NOTE | 2025-05-04 10:39 | A.OFFVIS_ITS ---
Intake Visit Reasons: Recurrent UTIs and mixed incontinence Intake Note: Patient is present for RECURRENT UTI AND MIXED INCONTINENCE Urology Medication:NONE Antibiotic Allergy:METFORMIN,ATORVASTATIN Blood Thinner:NONE TODAY'S PVR:0ML'S Cotton Picker Operator Required: No Allergies lisinopril Allergy (Severe, Verified 05/04/25 10:40) Swelling metformin Allergy (Intermediate, Verified 05/04/25 10:40) Intolerance, chest pain, high BP, diarrhea pantoprazole Allergy (Intermediate, Verified 05/04/25 10:40) rash quetiapine Allergy (Intermediate, Verified 05/04/25 10:40) chest pain empagliflozin (From Jardiance) Adverse Reaction (Intermediate, Verified 05/04/25 10:40) uti atorvastatin Adverse Reaction (Mild, Verified 05/04/25 10:40) Diarrhea orange juice Allergy (Intermediate, Uncoded 05/04/25 10:40) gerd HPI Comments Details: Annette is a very pleasant 70-year-old South Korean-speaking female patient of Dr. Amado who was accompanied by her daughter and granddaughter at today's office vis it. She has a past medical history of recurrent urinary tract infections, diabetes, aortic stenosis, dyspepsia, dementia, retinitis pigmentosa of bilateral eyes, GERD, obesity, vitamin-D deficiency, dyslipidemia, hypertension, and diabetic polyneuropathy. She presents to the office today as a new patient for recurrent urinary tract infections as well as ongoing dysuria and mixed urinary incontinence she has been experiencing. In discussion with the patient today she reports a longstanding history of mixed urinary incontinence however most recently has been experiencing episodes of dysuria. She reports having followed up with her PCP at which time recommendations were made for urology referral for further assessment evaluation. In office urinalysis results reviewed with the patient and her family today 1+ leukocytes 2+ microscopic hematuria. Proteinuria noted as well. She does report to be following up with Nephrology here at [facility]. She continues to report episodes of dysuria. In review of patient's chart it appears urine cultures are as follows: 09/21 Proteus mirabilis, 12/19 strep agalactiae (group B) We did discussed potential causes of lower urinary tract symptoms patient is experiencing as well as microscopic hematuria. When asked she denies any previous history of nicotine dependence and or workplace chemical exposure. She denies gross/visible hematuria, foul smelling urine, changes to urinary stream, flank pain, fever, and or chills. PVR 0 mL. All questions were answered. She otherwise offers no other issues or concerns at this time. [facility] Medical History UTI symptoms Recurrent UTI (urinary tract infection) Diabetes mellitus Dysuria Urinary frequency Aortic stenosis Uncontrolled type 2 diabetes mellitus with hyperglycemia, with long-term current use of insulin Shortness of breath Chest pain Fissure in skin of foot Impacted cerumen of left ear Dyspepsia Cyst of skin Left shoulder pain Hospital discharge follow-up Medicare annual wellness visit, subsequent Cellulitis of left leg Dementia Retinitis pigmentosa of both eyes GERD (gastroesophageal reflux disease) Obesity (BMI 30-39.9) Vitamin D deficiency Dyslipidemia Hypertension Diabetic polyneuropathy associated with type 2 diabetes mellitus Diabetic nephropathy associated with type 2 diabetes mellitus Diabetes type 2, uncontrolled Surgical History History of esophagogastroduodenoscopy (EGD) H/O colonoscopy Hx of cholecystectomy Hx of tubal ligation Hx of hernia repair Family History Father No problems noted. Mother Heart disease HTN (hypertension) Sister Pre-diabetes Brother Leukemia Son In good health Daughter In good health Daughter In good health Social History Household Members: Family Housing: Apartment Alcohol intake: never Patient Tobacco Use Status: Never used Tobacco e-Cigarette/Vaping Use: Never Used Second Hand Smoke Exposure: No service: No Current occupational status: disabled Cognitive needs: No Hearing needs: No Vision needs: No Review of Systems Const All systems reviewed & are unremarkable except as noted in HPI and below Physical Exam Const General: cooperative, healthy appearing, comfortable, no acute distress, well developed, alert and awake Orientation/consciousness: patient oriented x3 Limitations: language barrier HEENT Head: Yes normal to inspection, Yes normocephalic and Yes atraumatic Ears: hearing grossly normal bilaterally Eyes General: appearance normal, both eyes and all related structures Neck Neck: Yes normal visual inspection and Yes trachea midline Chest Chest palpation & inspection: normal inspection of the chest Resp Effort & Inspection: normal respiratory effort and able to speak in complete sentences Cardio Rate: regular rate GI Inspection: Yes normal to inspection General: Yes no CVA tenderness Back/Spine/Pelvis Back: no CVA tenderness Skin General skin exam: no rashes or lesions noted Neuro General: patient oriented x3 Extrem General: Yes normal to inspection Psych Appearance: grossly normal and well kempt Mental Status: mental status grossly normal Speech and movement: Normal speech and movement present and Clear speech present Affect: normal affect Attitude: cooperative Thought process: Normal thought process present Thought content: Normal thought content present Insight: Fair insight present (Psych) Judgement: Fair judgement present (Psych) Office Procedures Post Void Residual Post Residual Void Post Void Residual (PVR): 0 [id number]-[id number] Void Residual by ultrasound Results AMB Urinalysis, Automated UA Leukoctes 15 Shad/uL Last Edit by ZULEMA Caldwell on 05/04/25 11:00 UA Nitrite Negative Last Edit by ZULEMA Caldwell on 05/04/25 11:00 UA Urobilinogen 0.2 mg/dL Last Edit by ZULEMA Caldwell on 05/04/25 11:0 0 UA Protein 100 mg/dL Last Edit by ZULEMA Caldwell on 05/04/25 11:00 UA pH 6.0 Last Edit by ZULEMA Caldwell on 05/04/25 11:00 UA Blood 80 Ermias/uL Last Edit by ZULEMA Caldwell on 05/04/25 11:00 UA Specific Orlando 1.025 Last Edit by ZULEMA Caldwell on 05/04/25 11: 00 UA Ketone Negative Last Edit by ZULEMA Caldwell on 05/04/25 11:00 UA Bilirubin 0 mg/dL Last Edit by ZULEMA Caldwell on 05/04/25 11:00 UA Glucose 0 mg/dL Last Edit by ZULEMA Caldwell on 05/04/25 11:00 Results Reviewed Results Reviewed: Laboratory Last Values Urine pH (Auto) 6.0 05/04/25 10:45 Specific Orlando (Auto) 1.025 05/04/25 10:45 Urine Protein (Auto) 100 mg/dL 05/04/25 10:45 Glucose (UA)(Auto) 0 mg/dL 05/04/25 10:45 Urine Ketones (Auto) Negative 05/04/25 10:45 Urine Blood (Auto) 80 Ermias/uL 05/04/25 10:45 Urine Nitrite (Auto) Negative 05/04/25 10:45 Urine Bilirubin (Auto) 0 mg/dL 05/04/25 10:45 Urine Urobilinogen (Auto) 0.2 mg/dL 05/04/25 10:45 Leukocyte Esterase (Auto) 15 Shad/uL 05/04/25 10:45 Assessment & Plan Assessment & Plan (1) Dysuria: Comment: no evidence of acute UTI on urinalysis; urine culture pending. Code(s): R30.0 - Dysuria Category: Medical (2) Recurrent UTI (urinary tract infection): Code(s): N39.0 - Urinary tract infection, site not specified Category: Medical (3) Mixed stress and urge urinary incontinence: Code(s): N39.46 - Mixed incontinence Category: Medical Plan In office urinalysis results reviewed with the patient today; as noted above; will send for urine culture and cytology; will await results PVR 0 mL. Will obtain retroperitoneal ultrasound for further assessment evaluation. Start Estrace cream as discussed and prescribed. We did discussed potential causes of lower urinary tract symptoms patient is experiencing as well as further treatment options and risks and benefits of these treatment options. All questions were answered. Discussed UTI prevention with D mannose supplement, vitamin-C, increasing fluid intake, behavioral therapy with timed voiding, perineal hygiene and postcoital voiding, and management of constipation with stool softeners and increased fiber intake. Follow-up in 3 months with PVR; or sooner with any issues, concerns, and or questions. Orders: Orders AMB Urinalysis Automated Today Z13.9 - Encounter for screening, unspecified Urine Culture Today N39.0 - Urinary tract infection, site not specified Urine Cytology Today R31.29 - Other microscopic hematuria US retroperitoneal comp Today N39.0 - Urinary tract infection, site not specified, N39.46 - Mixed incontinence, R30.0 - Dysuria Medications: New estradiol 0.01%(0.1mg/gram) (Estrace) Apply a pea-sized amount to urethra daily x1 month and then 3 times per week thereafter 1 g vaginal 3XW 42.5 grams 3RF 90 days Discontinued nitrofurantoin monohyd/m-cryst 100 mg (Macrobid) must administer with a meal/food Discontinued Reason: Patient Completed Course 100 mg PO BID 14 caps 0RF Patient Instructions: The patient had an opportunity to ask questions regarding the treatment plan. All questions were answered. Physical exam, labs, and imaging were discussed and reviewed in detail. As well as risks, benefits, and discussion of treatment choices. No major barriers to understanding were identified. The patient expressed understanding and agreement with the above treatment plan. The patient was made aware they should contact our office by phone for worsening of their current condition, the appearance of new symptoms, or with any questions or concerns. Compliance is encouraged with any medications and follow up testing that is ordered. It is a privilege to be allowed the opportunity to participate in? your urological care.? Again, if you have any questions or concerns If you have any questions or concerns please do not hesitate to contact me. The office is [phone]. This note is constructed using voice recognition software. While every effort has been made to ensure accuracy pe electrical engineer errors may have been included. Yours sincerely, RUBIA Goel Coding Level of Care Code New Pt Level 4 (60284) Diagnoses Dysuria R30.0 Recurrent UTI (urinary tract infection) N39.0 Mixed stress and urge urinary incontinence N39.46 CPT Codes Post Residual Void - PVR CPT Code: 04830-Izmn Void Residual by ultrasound ([id number])
== END 2025-05-04 11:20 | disposition home or self-care (01) ==
LOC: HO.HUSH 10:36
PROVIDERS: PCP Internal Medicine; Visit Provider Nurse Practitioner Family
DX: R30.0 Dysuria (principal); N39.0 Urinary tract infection, site not specified; N39.46 Mixed incontinence; Z13.9 Encounter for screening, unspecified
CPT/HCPCS: 99204

== ENCOUNTER 2025-05-04 10:35 | Outpatient (REF) | payer MEDICARE, MEDICAID, SELFPAY | END 2025-05-04 10:36 | disposition home or self-care (01) | LOC: HO.LAB 10:35 | PROVIDERS: PCP Internal Medicine; Visit Provider Nurse Practitioner Family | DX: N39.46 Mixed incontinence (principal); R30.0 Dysuria; R31.29 Other microscopic hematuria; Z13.89 Encounter for screening for other disorder; Z87.440 Personal history of urinary (tract) infections | CPT/HCPCS: 51798; 81003; 87086; 88112; 99202 ==

== ENCOUNTER 2025-05-12 08:14 | Outpatient (AMB) | payer MEDICARE, MEDICAID, SELFPAY ==
--- OUTSIDE RECORDS SUMMARY | 2025-05-12 08:21 | XMS_ITS | Clinical Summary ---
Author Organization [facility] [address] [facility] Address [address] [place] [address] Phone Care Team Providers Care Food Services Director Name Role Phone Anabela Jin MD [...] Comment Performing Lab: Site ID: [id number] Name: [facility] Address: [address] [place] [phone] Director: Robbin Monroy M.D. Jewell Estrada APRN URINE ORDERABLES Final Result [facility] [address] [place] [address] * (ABNORMAL) Lipid panel with reflex to [...] LDL-C. Wade VARGAS et al. MAXIMILIANO. 2013;310(19): 0977-2688 (http://education.SNA[employer]/faq/WJK964) Chol/HDL Ratio 5.7(H) <5.0 (calc) [facility] [...] Comment Performing Lab: Site ID: [id number] Name: [facility] Address: [address] [place] [phone] Director: Robbin Monroy M.D. Jewell Estrada APRN LAB BLOOD ORDERABLES Final Re sult [facility] [address] [place] [address], [place] * POCT glycosylated hemoglobin (HgbA1c), total (26571) (12/18/2023 9:13 AM EDT) Hemoglobin A1C, POC 11.3 4.0 - 6.0 % [facility] Test Lot Number [id number] [facility] Test Lot Exp Date 09/08/25 Date Format: MM/DD/YYYY [facility] 12/18/2023 9:13 AM EDT Jewell Estrada APRN POINT OF CARE TEST ORDERABLES Final Result [facility] [place], [place], [facility] from Last 3 Months or Most Recently Relevant to Health Maintenance Insurance MEDICARE [id number] MEDICAID MEDICARE [id number] MEDICAID MEDICAID [place] AETNA [facility] MGD MEDICARE [id number] MEDICAID Care Teams Food Services Director Relationship Specialty Start Date End Date Anabela Jin MD [address] [place] [address] [place] [phone] PCP - General Internal Medicine 11/24/23
--- OUTSIDE RECORDS SUMMARY | 2025-05-12 08:21 | XMS_ITS | Clinical Summary ---
Author Organization [employer] Address [address] [facility] 7[address] [place] [address] Care Team Providers Care Egg Breaking Machine Operator Name Role Phone Unavailable Primary Care Provider [...] patient's age to complete this topic Insurance [facility] STANDARD [place] [phone]
--- OUTSIDE RECORDS SUMMARY | 2025-05-12 08:22 | XMS_ITS | Encounter Summary ---
Author Organization [facility] Address [address] [place] [address] Phone -x2013 Care Team Providers Care Shirt Folder Name Role Phone Anabela Jin MD Primary Care Provid er Reason for Visit * Reason Onset Date Comments Medication Problem 12/29/2023 semaglutide ( OZEMPIC) 0.25 mg or 0.5 mg (2 mg/3 mL) pen injector Advice Only 12/29/2023 Encounter Details Date Type Department Care Team (Late st Contact Info) Description 12/29/[address] [address] Anabela Jin MD [address] [place] [address] [place] [phone] Medication Problem (semaglutide [...] James RN - 12/29/2023 4:15 PM EDT #[id number] setswana interpretor Called back pt and relayed medication [...] she didn't understand the previous call with security operations manager states line was cutting out and requesting a callback to get clarification on Rx if pt has to take .25 or 0.5mg and for how long please callback to advise Specify Name of Medication: semaglutide (OZEMPIC) 0.25 mg or 0.5 mg (2 mg/3 mL) pen injector Refill status:0 Preferred Language:setswana Caller was aware message would be routed to PCP team for review and F/U. Caller made aware of form policy. Caller verbalized understating and had no further question at this time. * Telephone Encounter - Priscilla Wilson - 12/29/2023 9:14 AM EDT Reason for call:states she didn't understand the previous call with security operations manager states line was cutting out and requesting a callback to get clarification on Rx if pt has to take .25 and for how longplease callback to advise Medication Issue/Schedule Appointment F/FU/Authorization Request: Specify Name of Medication:semaglutide (OZEMPIC) 0.25 mg or 0.5 mg (2 mg/3 mL) pen injector Refill status:0 Preferred Language:setswana Caller was aware message would be routed [...] documented as of this encounter Care Teams Shirt Folder Relationship Specialty Start Date End Date Anabela Jin MD [address] [place] [address] [place] [phone] PCP - General Internal Medicine 11/24/23 documented as of this encounter
--- OUTSIDE RECORDS SUMMARY | 2025-05-12 08:22 | XMS_ITS | Clinical Summary ---
Author Organization [facility] Address [address] [place] [address] Care Team Providers Care Warehouse Packer Name Role Phone Anabela Jin MD Primary Care Provider [phone] Allergies Active Allergy Reactions Criticality Noted Date [...] Vaccine (1 of 2) 2004 RSV Vaccine 50 years and older and Patients (1 - Risk 60-74 years 1-dose series) 2014 DXA Bone Density (Females,Ages 65 and older) 2019 Influenza Vaccine 02/25/2025 COVID-19 Vaccine (3 - 2024-2 6 season) 2025 01/13/2021, 12/23/2020 Hepatitis B Vaccines Aged Out No long er eligible based on patient's age to complete this topic Insurance [facility] MEDICARE PART A & B Care Teams Warehouse Packer Relationship Specialty Start Date End Date Anabela Jin MD [address] [place] [phone] PCP - General Family Medicine 02/17/21
--- OUTSIDE RECORDS SUMMARY | 2025-05-12 08:22 | XMS_ITS | Encounter Summary ---
Author Organization [facility] Address [address] [place] [address] Phone -x2013 Care Team Providers Care Office Rep Name Role Phone Anabela Jin MD Primary Care Provid er Reason for Visit * Reason Comments Med Change Request Encounter Details Date Type Department Care Team (Late st Contact Info) Description 02/05/[address] [address] Jewell Estrada APRN [address] [place] [address] Med Change Request Social History [...] documented as of this encounter Care Teams Office Rep Relationship Specialty Start Date End Date Anabela Jin MD [address] [place] [address] [place] [phone] PCP - General Internal Medicine 11/24/23 documented as of this encounter
--- OUTSIDE RECORDS SUMMARY | 2025-05-12 08:22 | XMS_ITS | Encounter Summary ---
Author Organization [facility] Address [address] [place] [address] Phone -x2013 Care Team Providers Care Coil Winding Supervisor Name Role Phone Anabela Jin MD Primary Care Provid er Reason for Visit * Reason Comments Med Change Request Encounter Details Date Type Department Care Team (Late st Contact Info) Description 01/27/2024 [facility] [address] [place], [place] [phone] Jewell Estrada APRN [address] [place] [address] Med Change Request Social History [...] documented as of this encounter Care Teams Coil Winding Supervisor Relationship Specialty Start Date End Date Anabela Jin MD [address] [facility] [address] [place], [place] [phone] PCP - General Internal Medicine 11/24/23 documented as of this encounter
--- OUTSIDE RECORDS SUMMARY | 2025-05-12 08:22 | XMS_ITS | Encounter Summary ---
Author Organization [facility] Address [address] [place] [address] Phone -x2013 Care Team Providers Care Sales Representative Adding Machines Name Role Phone Anabela Jin MD Primary Care Provid er Reason for Visit * Reason Onset Date Comments Medication Problem 12/25/2023 dulaglutide 3 mg/0.5 mL PnIj Encounter Details Date Type Department Care Team (Late st Contact Info) Description 12/25/[address] [address] Anabela Jin MD [address] [place] [address] [place] [phone] Medication Problem (dulaglutide [...] 3 mg/0.5 mL PnIj Refill status: Preferred Language:Filipino Caller was aware message would be routed [...] as of this encounter Care Teams Sales Representative Adding Machines Relationship Specialty Start Date End Date Anabela Jin MD [address] [place] [address] [place] [phone] PCP - General Internal Medicine 11/24/23 documented as of this encounter
--- OUTSIDE RECORDS SUMMARY | 2025-05-12 08:22 | XMS_ITS | Encounter Summary ---
Author Organization [facility] Address [address] [place] [address] Phone -x2013 Care Team Providers Care Weatherization Technician Name Role Phone Anabela Jin MD Primary Care Provid er Reason for Visit * Reason Comments Medication Refill Encounter Details Date Type Department Care Team (Late st Contact Info) Description 02/25/2024 Refill [facility] [address] [place], [place] [phone] Jewell Estrada APRN [address] [place] [address] Medication Refill Social History Tobacco [...] documented as of this encounter Care Teams Weatherization Technician Relationship Specialty Start Date End Date Anabela Jin MD [address] [facility] [address] [place], [place] [phone] PCP - General Internal Medicine 11/24/23 documented as of this encounter
--- OUTSIDE RECORDS SUMMARY | 2025-05-12 08:22 | XMS_ITS | Encounter Summary ---
Author Organization [facility] Address [address] [place] [address] Phone -x2013 Care Team Providers Care Hardness Tester Name Role Phone Anabela Jin MD Primary Care Provid er Reason for Visit * Reason Comments Med Change Request Encounter Details Date Type Department Care Team (Late st Contact Info) Description 12/25/2023 [facility] [address] [place], [place] [phone] Jewell Estrada APRN [address] [place] [address] Med Change Request Social History [...] documented as of this encounter Care Teams Hardness Tester Relationship Specialty Start Date End Date Anabela Jin MD [address] [place] [address] [place] [phone] PCP - General Internal Medicine 11/24/23 documented as of this encounter
--- NOTE | 2025-05-12 08:25 | AM.OFFWIN_ITS ---
Intake Vital Signs 05/12/25 08:26 Height 5 ft 2 in Weight 155 lb BMI 28.3 BP 132/70 Blood Pressure Location Rt brachial Position Sitting Pulse 83 Pulse Source Pulse Oximeter Temp 98.0 F Temp Source Oral Pulse Oximetry (%) 97 Intake Visit Reasons: EP-rt ear pain Patient Tobacco Use Status: Never used Tobacco Global Human Resources Director Required: Yes Global Human Resources Director Language: Honduran Allergies lisinopril Allergy (Severe, Verified 05/12/25 08:32) Swelling metformin Allergy (Intermediate, Verified 05/12/25 08:32) Intolerance, chest pain, high BP, diarrhea pantoprazole Allergy (Intermediate, Verified 05/12/25 08:32) rash quetiapine Allergy (Intermediate, Verified 05/12/25 08:32) chest pain empagliflozin (From Jardiance) Adverse Reaction (Intermediate, Verified 05/12/25 08:32) uti atorvastatin Adverse Reaction (Mild, Verified 05/12/25 08:32) Diarrhea orange juice Allergy (Intermediate, Uncoded 05/04/25 10:40) gerd Do you need a note to return to daycare/school/sports/work: No HPI HPI Comments History of Present Illness Details History of Present Illness - The patient is a 70-year-old [place]uran s peaking female presenting with her daughter as her mold repairer for ear pain and concern about a foreign body in the ear. - The patient was using cotton swabs for ear cleaning, which led to a piece of cotton being left in the ear. - The cotton was partially removed, but the patient continued to experience pain in the left ear. - There are no signs of infection or ear wax buildup in either ear. - The patient denies any cold symptoms, sore throat, cough, or fever. Physical Exam General: Cooperative, healthy appearing, comfortable, no acute distress and well developed Orientation: Patient oriented x3 Limitations: No limitations Head: Normal to inspection Ears: Hearing grossly normal bilaterally. No tragus tenderness noted. No mastoid tenderness noted. Left ear canal is clear. No FB noted. TM is clear, bony landmarks are noted, good cone of light. No discharge noted in the canal. Neck: Normal visual inspection and Yes full ROM. No lymphadenopathy noted. Respiratory: Normal respiratory effort and able to speak in complete sentences. Clear to auscultation bilaterally Cardiovascular: Regular rate and rhythm. Normal S1 and S2. No m/r/g noted. Patient was informed and verbally consented to the use of an ambient scribe for clinic note documentation during this visit. [facility], [facility] Medical History UTI symptoms Recurrent UTI (urinary tract infection) Diabetes mellitus Dysuria Urinary frequency Aortic stenosis Uncontrolled type 2 diabetes mellitus with hyperglycemia, with long-term current use of insulin Shortness of breath Chest pain Fissure in skin of foot Impacted cerumen of left ear Dyspepsia Cyst of skin Left shoulder pain Hospital discharge follow-up Medicare annual wellness visit, subsequent Cellulitis of left leg Dementia Retinitis pigmentosa of both eyes GERD (gastroesophageal reflux disease) Obesity (BMI 30-39.9) Vitamin D deficiency Dyslipidemia Hypertension Diabetic polyneuropathy associated with type 2 diabetes mellitus Diabetic nephropathy associated with type 2 diabetes mellitus Diabetes type 2, uncontrolled Surgical History History of esophagogastroduodenoscopy (EGD) H/O colonoscopy Hx of cholecystectomy Hx of tubal ligation Hx of hernia repair Family History Father No problems noted. Mother Heart disease HTN (hypertension) Sister Pre-diabetes Brother Leukemia Son In good health Daughter In good health Daughter In good health Social History Household Members: Family Housing: Apartment Alcohol intake: never Patient Tobacco Use Status: Never used Tobacco e-Cigarette/Vaping Use: Never Used Second Hand Smoke Exposure: No service: No Current occupational status: disabled Cognitive needs: No Hearing needs: No Vision needs: No Review of Systems Const All systems reviewed & are unremarkable except as noted in HPI and below Physical Exam Vital Signs: Last Vital Signs Temp 98.0 F 05/12/25 08:26 Pulse 83 05/12/25 08:26 BP 132/70 05/12/25 08:26 Pulse Ox 97 05/12/25 08:26 BMI result Body Mass Index 28.3 Assessment & Plan Assessment & Plan (1) Left ear pain: Code(s): H92.02 - Otalgia, left ear Plan Most likely FB that was removed by the patient plan - hydrocortisone-acetic acid drops to the left ear - follow up with PCP Medications: New hydrocortisone-acetic acid 1-2 % 4 drps otic (ear) right TID 10 mL 0RF Coding Level of Care Code Est Pt Level 3 (29007) Diagnoses Left ear pain H92.02
[2025-05-12 08:26] VITALS: BP 132/70; PULSE 83; TEMP 36.7; O2SAT 97; BMI 28.3
== END 2025-05-12 09:25 | disposition home or self-care (01) ==
PROVIDERS: PCP Internal Medicine; Visit Provider Physician Assistant Medical
DX: H92.02 Otalgia, left ear (principal)

== ENCOUNTER 2025-05-12 08:14 | Outpatient (REF) | payer MEDICARE, MEDICAID, SELFPAY ==
--- NOTE | ~2025-05-12 | XR_ITS ---
EXAMINATION: XR LUMBOSACRAL SPINE CLINICAL INFORMATION: M54.50 - Low back pain, unspecified COMPARISON: X-ray 05/12/2025 TECHNIQUE: Three views of the lumbosacral spine. FINDINGS: Osseous mineralization appears decreased. 5 lumbar type vertebral bodies. Stable grade 1 anterolisthesis of L5 on S1. Vertebral body heights are maintained. No evidence of acute fracture. Multilevel degenerative disc disease, worse at L5-S1, with moderate disc degeneration, appearing similar to previous. Multilevel endplate spurring. Multilevel facet degeneration. Redemonstrated 4.5 cm popcorn like calcifications in the left hemipelvis, appearing similar to previous, could be related to fibroid demonstrated on the prior CT scan of 08/23/2017. This can be evaluated with ultrasound. SI joints are symmetric. Cholecystectomy clips. Nonobstructive bowel gas pattern. XR/XR lumbar spine 2-3V IMPRESSION: * Grade 1 anterolisthesis of L5 on S1, stable * Multilevel disc degenerative disease worst at L5-S1, relatively similar to previous * No radiographic evidence of acute fracture. * Coarse calcifications in the left hemipelvis, could be related to uterine fibroid, can be confirmed with ultrasound.. Electronically signed by: Chuck Guthrie MD 05/12/2025 12:58 PM EDT
[2025-05-12 10:43] LABS: Appearance Urine Clear; Glucose Urine UA Negative (Negative); PH 5.5 (5.0-9.0); Specific Gravity - Urine 1.020 (1.005-1.025); UMIC TRIGGER UA YES
[2025-05-12 11:39] LABS: Alanine Aminotransferase 25 U/L (0-31); Anion Gap 14 (12-20); Aspartate Amino Transferase 35 U/L (5-31); Blood Urea Nitrogen 22 mg/dL (9-16); Calcium 9.6 mg/dL (8.4-10.2); Carbon Dioxide 18 mmol/L (22-29); Chloride 113 mmol/L (96-108); Cholesterol 170 mg/dL (<200); Estimated Glomerular Filt Rate > 60; HDL Cholesterol 51 mg/dL (>40); Potassium 4.6 mmol/L (3.3-5.1); Sodium 140 mmol/L (135-145); Triglycerides 155 mg/dL (<150)
[2025-05-12 12:09] LABS: Total Protein Urine Random 37 mg/dL (<12)
== END 2025-05-12 08:15 | disposition home or self-care (01) ==
LOC: HO.XRAY 08:14
PROVIDERS: Absent Provider Internal Medicine Hypertension Specialist; PCP Internal Medicine; Referring Provider Internal Medicine; Visit Provider Physician Assistant Medical
DX: H92.02 Otalgia, left ear (principal); M54.50 Low back pain, unspecified; R80.9 Proteinuria, unspecified; E78.5 Hyperlipidemia, unspecified; R39.9 Unspecified symptoms and signs involving the genitourinary system
CPT/HCPCS: 36415; 72100; 80048; 80061; 81001; 82570; 84156; 84450; 84460; 99212

== ENCOUNTER → 2025-05-12 10:24 | Outpatient (BNV) | payer MEDICARE, MEDICAID, SELFPAY | PROVIDERS: Absent Provider Internal Medicine Hypertension Specialist; PCP Internal Medicine; Referring Provider Internal Medicine; Visit Provider Radiology Diagnostic Ultrasound | DX: M51.370 Other intervertebral disc degeneration, lumbosacral region with discogenic back pain only (principal) | CPT/HCPCS: 72100 ==

== ENCOUNTER 2025-05-17 10:01 | Outpatient (AMB) | payer MEDICARE, MEDICAID, SELFPAY ==
--- NOTE | 2025-05-17 10:26 | HO.NEPHOV ---
Vital Signs 05/17/25 10:27 Height 5 ft 2 in Weight 152 lb BMI 27.8 BP 130/80 Blood Pressure Location Rt brachial Position Sitting Pulse 80 Pulse Source Pulse Oximeter Pulse Oximetry (%) 94 Oxygen Delivery Method Room Air Intake Visit Reasons: 6 MO FU confirmed Structural Steel Equipment Erector Required: Yes Structural Steel Equipment Erector Name: Ewa [id number] Accompanied by: Daughter Allergies lisinopril Allergy (Severe, Verified 05/17/25 10:31) Swelling metformin Allergy (Intermediate, Verified 05/17/25 10:31) Intolerance, chest pain, high BP, diarrhea pantoprazole Allergy (Intermediate, Verified 05/17/25 10:31) rash quetiapine Allergy (Intermediate, Verified 05/17/25 10:31) chest pain empagliflozin (From Jardiance) Adverse Reaction (Intermediate, Verified 05/17/25 10:31) uti atorvastatin Adverse Reaction (Mild, Verified 05/17/25 10:31) Diarrhea orange juice Allergy (Intermediate, Uncoded 05/04/25 10:40) gerd Medication List - Last Reconciled 05/17/25 by German Vásquez MD acetaminophen (Tylenol) 325 mg PO QID PRN acetaminophen 500 mg PO Q6H PRN acetic acid 2% 3 drps otic (ears) Q6H 2 weeks adhesive tape (Band-Aid Paper Tape) As directed [adult diapers pull-ups Use 1 diaper 6 times a day] amlodipine 10 mg PO DAILY 90 days blood sugar diagnostic (FreeStyle Lite Strips) 3 times a day 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 meter (FreeStyle Lite Meter kit) 3 times a day 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 sensor (FreeStyle Stephon 3 Sensor device) apply new sensor every 14 days as directed 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 sensor (FreeStyle Stephon 3 Plus Sensor device) Apply 1 new sensor every 14 days as directed to monitor blood glucose continuously. 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,bit gatherer,cont (FreeStyle Stephon 3 Meeker) as directed chlorthalidone 25 mg PO DAILY cholecalciferol (vitamin D3) 25 mcg PO DAILY commode As directed [compression stockings knee high As directed] Dexilant (dexlansoprazole) 60 mg PO DAILY NS dicyclomine 20 mg PO QID 30 days dulaglutide (Trulicity) 3 mg (0.5 mL) subcut QWEEK elastic bandage (Coban Self-Adherent Wrap) As directed estradiol 0.01%(0.1mg/gram) (Estrace) 1 g vaginal 3XW 90 days ezetimibe 10 mg PO DAILY 90 days ferrous sulfate 325 mg PO DAILY 90 days fluticasone propionate 50 mcg/actuation (Flonase Allergy Relief) 1 spray intranasal DAILY furosemide 40 mg PO DAILY gauze bandage (Band-Aid Gauze Pads) As directed glipizide ER 2.5 mg PO DAILY glucose (Dex4 Glucose) 16 grams (4 x 4 gram) PO Q15M PRN hydrocortisone-acetic acid 1-2 % 4 drps otic (ear) right TID insulin glargine (Lantus Solostar U-100 Insulin) 10 units (0.1 mL) subcut QPM lactulose 10 grams (15 mL) PO BEDTIME PRN 30 days lancets (FreeStyle Lancets) 3 times a day loperamide (Imodium A-D) 2 mg PO BID metoclopramide HCl (Reglan) 10 mg PO QIDACHS miscellaneous medical supply As directed omega-3 fatty acids-fish oil 300-1,000 mg 1 cap PO BID pen needle, diabetic (Comfort EZ Pen Upson) Use 1 pen needle once a day [personal wipes As directed] rosuvastatin 10 mg PO BEDTIME Shower Chair As directed simethicone (Gas Relief (simethicone)) 180 mg PO BID PRN 90 days sucralfate (Carafate) 10 mL PO QIDACHS tramadol 50 mg PO BID PRN 30 days [walker with seat As directed] [wheelchair As directed] HPI Comments Details: Elderly woman with a history of longstanding diabetes mellitus. She has been referred for evaluation of microalbuminuria. Blind. History of diabetic polyneuropathy She was on lisinopril and developed swelling of the lips. She has no longer on DEBBY inhibitor due to angioedema. She was accompanied by her daughter. She has retinitis pigmentosa and is legally 05/20/24;c/o burning urination 11/16/24 Here for semiannual follow up Accompanied by daughter Interpretor service was used. Recently treated for vaginal infection 05/17/25 - The patient is a 70-year-old female presenting with a routine nephrology follow-up. - Diabetes mellitus: Blood sugar at 100 mg/dL, on appropriate medications. - Hyperlipidemia: Chest pain with atorvastatin, switched to rosuvastatin without issues. - Urinary tract fungal infection: Fungal presence in urine, possibly due to antibiotics, asymptomatic. - Lumbar arthritis: Lower back pain, x-ray confirmed arthritis. [facility] Medical History UTI symptoms Recurrent UTI (urinary tract infection) Diabetes mellitus Dysuria Urinary frequency Aortic stenosis Uncontrolled type 2 diabetes mellitus with hyperglycemia, with long-term current use of insulin Shortness of breath Chest pain Fissure in skin of foot Impacted cerumen of left ear Dyspepsia Cyst of skin Left shoulder pain Hospital discharge follow-up Medicare annual wellness visit, subsequent Cellulitis of left leg Dementia Retinitis pigmentosa of both eyes GERD (gastroesophageal reflux disease) Obesity (BMI 30-39.9) Vitamin D deficiency Dyslipidemia Hypertension Diabetic polyneuropathy associated with type 2 diabetes mellitus Diabetic nephropathy associated with type 2 diabetes mellitus Diabetes type 2, uncontrolled Surgical History History of esophagogastroduodenoscopy (EGD) H/O colonoscopy Hx of cholecystectomy Hx of tubal ligation Hx of hernia repair Family History Father No problems noted. Mother Heart disease HTN (hypertension) Sister Pre-diabetes Brother Leukemia Son In good health Daughter In good health Daughter In good health Social History Household Members: Family Housing: Apartment Alcohol intake: never Patient Tobacco Use Status: Never used Tobacco e-Cigarette/Vaping Use: Never Used Second Hand Smoke Exposure: No service: No Current occupational status: disabled Cognitive needs: No Hearing needs: No Vision needs: No Physical Exam Vital Signs: Last Vital Signs Pulse 80 05/17/25 10:27 BP 130/80 05/17/25 10:27 Pulse Ox 94 05/17/25 10:27 Oxygen Delivery Method Room Air 05/17/25 10:27 BMI result Body Mass Index 27.8 Comfortable Neck supple no JVD. Lungs entry equal no rales. Heart S1-S2 heard no gallop or rub. Abdomen soft nontender. Neuro alert awake oriented. No asterixis. Extremities no edema. Results Reviewed Nephrology Results: Hgb, (12.0-16.0) 11.6 g/dl L 04/19/25 WBC, (4.8-10.8) 5.4 X10*3/uL 04/19/25 Plt Count, (160-400) 175 X10*3/uL 04/19/25 Sodium, (135-145) 140 mmol/L 05/12/25 Potassium, (3.3-5.1) 4.6 mmol/L Δ 05/12/25 Chloride, (96-108) 113 mmol/L H 05/12/25 Carbon Dioxide, (22-29) 18 mmol/L L 05/12/25 BUN, (9-16) 22 mg/dL H 05/12/25 Creatinine, (0.5-1.4) 0.89 mg/dL 05/12/25 Calcium, (8.4-10.2) 9.6 mg/dL 05/12/25 Urine Protein, (Neg-Trace) 30 (1+) mg/dL H 05/12/25 Urine Creatinine 88.07 mg/dL 05/12/25 Assessment & Plan Assessment & Plan (1) Microalbuminuria: Code(s): R80.9 - Proteinuria, unspecified Category: Medical (2) Diabetic nephropathy associated with type 2 diabetes mellitus: Code(s): E11.21 - Type 2 diabetes mellitus with diabetic nephropathy Category: Medical (3) Hypertension: Code(s): I10 - Essential (primary) hypertension Category: Medical Qualifiers: Hypertension type: essential hypertension Qualified Code(s): I10 - Essential (primary) hypertension Plan 70-year-old woman with a history of microalbuminuria most likely due to underlying diabetic kidney disease. Nondiabetic causes seem less likely at this point. Overall blood pressure is well controlled. Goal is to maintain blood pressure less than 130/80. Maintain hemoglobin A1c less than 7%. She we will benefit from DEBBY inhibition. However she has a history of angioedema with DEBBY inhibitors, therefore I would avoid using DEBBY inhibitors or ARBs. We can certainly try using spironolactone - based on BP urine protein is 0.42 She will benefit from SGLT2 inhibitors However with recurrent genital infection, Jardiance has been appropriately discontinued. Orders: Orders Total Protein Urine Random 6 Months E11.21 - Type 2 diabetes mellitus with diabetic nephropathy Basic Metabolic Panel 6 Months I10 - Essential (primary) hypertension Creatinine Urine 6 Months E11.21 - Type 2 diabetes mellitus with diabetic nephropathy UA and rflx microscopic 6 Months E11.21 - Type 2 diabetes mellitus with diabetic nephropathy Coding Level of Care Code Est Pt Level 4 (49509) Diagnoses Microalbuminuria R80.9 Diabetic nephropathy associated with type 2 diabetes mellitus E11.21 Essential hypertension I10 Hypertension type: essential hypertension
[2025-05-17 10:27] VITALS: BP 130/80; PULSE 80; O2SAT 94; BMI 27.8
--- OUTSIDE RECORDS SUMMARY | 2025-05-17 11:41 | XMS_ITS | Clinical Summary ---
Author Organization [employer] Address [address] [facility] [address] [place] [address] Care Team Providers Care Customer Service Operator Name Role Phone Unavailable Primary Care [...] patient's age to complete this topic Insurance [facility] STANDARD MEDICARE Member Subscriber Plan / Payer ([facility] 07/15/2022-Present) Name:Annette Mills Member ID:[id number] Relation to Subscriber:Self Name:Annette Mills Subscriber ID:[id number] Payer ID:STATE Group ID:Not on file Type:Medicare Address: [facility] [place] [phone]
--- OUTSIDE RECORDS SUMMARY | 2025-05-17 11:41 | XMS_ITS | Encounter Summary ---
Author Organization [facility] Address [address] [place] [address] Phone -x2013 Care Team Providers Care Clerical Adjudicator Name Role Phone Anabela Jin MD Primary Care Provid er Reason for Visit * Reason Comments Medication Refill Encounter Details Date Type Department Care Team (Late st Contact Info) Description 02/25/2024 Refill [facility] [address] [place], [place] [id number] Jewell Estrada APRN [address] [place] [address] Medication Refill Social History Tobacco [...] documented as of this encounter Care Teams Clerical Adjudicator Relationship Specialty Start Date End Date nAabela Jin MD [address] [facility] [address] [place], [place] [phone] PCP - General Internal Medicine 11/24/23 documented as of this encounter
--- OUTSIDE RECORDS SUMMARY | 2025-05-17 11:41 | XMS_ITS | Encounter Summary ---
Author Organization [facility] Address [address] [place] [address] Phone -x2013 Care Team Providers Care Poultry Packer Name Role Phone Anabela Jin MD Primary Care Provid er Reason for Visit * Reason Onset Date Comments Medication Problem 12/25/2023 dulaglutide 3 mg/0.5 mL PnIj Encounter Details Date Type Department Care Team (Late st Contact Info) Description 12/25/[address] [address] Anabela Jin MD [address] [place] [address] [place] [phone] Medication Problem (dulaglutide [...] 3 mg/0.5 mL PnIj Refill status: Preferred Language:Burkinan Caller was aware message would be routed [...] documented as of this encounter Care Teams Poultry Packer Relationship Specialty Start Date End Date Anabela Jin MD [address] [place] [address] [place] [phone] PCP - General Internal Medicine 11/24/23 documented as of this encounter
--- OUTSIDE RECORDS SUMMARY | 2025-05-17 11:41 | XMS_ITS | Encounter Summary ---
Author Organization [facility] Address [address] [place] [address] Phone -x2013 Care Team Providers Care Lube Worker Name Role Phone Anabela Jin MD Primary Care Provid er Reason for Visit * Reason Comments Med Change Request Encounter Details Date Type Department Care Team (Late st Contact Info) Description 01/27/2024 [facility] [address] [place], [place] [phone] Jewell Estrada APRN [address] [place] [address] Med Change Request Social History [...] documented as of this encounter Care Teams Lube Worker Relationship Specialty Start Date End Date Anabela Jin MD [address] [place], [place] [phone] PCP - General Internal Medicine 11/24/23 documented as of this encounter
--- OUTSIDE RECORDS SUMMARY | 2025-05-17 11:41 | XMS_ITS | Encounter Summary ---
Author Organization [facility] Address [address] [place] [address] Phone -x2013 Care Team Providers Care Team Driver Name Role Phone Anabela Jin MD Primary Care Provid er Reason for Visit * Reason Comments Med Change Request Encounter Details Date Type Department Care Team (Late st Contact Info) Description 12/25/2023 [facility] [address] [place], [place] [id number] Jewell Estrada APRN [address] [place] [address] Med Change Request Social History [...] documented as of this encounter Care Teams Team Driver Relationship Specialty Start Date End Date Anabela Jin MD [address] [place] [address] [place] [phone] PCP - General Internal Medicine 11/24/23 documented as of this encounter
--- OUTSIDE RECORDS SUMMARY | 2025-05-17 11:41 | XMS_ITS | Encounter Summary ---
Author Organization [facility] Address [address] [facility] [address] [place] [address] Phone Care Team Providers Care Engineering Technologist Name Role Phone Anabela Jin MD Primary Care Provider [phone] Reason for Visit * Reason Comments Med Refill Encounter Details Date Type Department Care Team (Late st Contact Info) Description 05/14/2025 Refill [facility] [address] [place] [phone] Rahul Jack MD [address] [facility] [address] [place] [address] Hypertension Social History Tobacco Use Types Packs/Day Years [...] as of this encounter Visit Diagnoses Diagnosis Hypertension documented in this encounter Care Teams Engineering Technologist Relationship Specialty Start Date End Date Anabela Jin MD [address] [place], [place] PCP - General Internal Medicine 09/03/21 documented as of this encounter
--- OUTSIDE RECORDS SUMMARY | 2025-05-17 11:41 | XMS_ITS | Clinical Summary ---
Author Organization [facility] Address [address] [place] [address], [place] [address] Care Team Providers Care Outside Maintenance Worker Name Role Phone Anabela Jin MD Primary Care Provider [phone] Allergies Active Allergy Reactions Criticality Noted Date [...] Date Chronic kidney disease, stage 2 (mild) 2 Hypertensive renal disease 10/30/2020 Proteinuria 10/30/2020 Renal disorder due to type 2 diabetes mellitus 0 10/30/2020 Encounters Date Type Department Care Team Description 05/14/2025 Refill [facility] [address] [place], [place] [phone] Rahul Jack MD Hypertension from Last 3 Months Immunizations Immunization Administration Dates Next Due Pfizer [...] A1C 03/19/2024 12/18/2023 Influenza Vaccine (#1) 2025 3, 06/10/2019, 05/26/2018, Additional history exists Pneumococcal Vaccine: 50+ Years Completed 12/07/2021, 11/15/2020, 11/23/2015 Pneumococcal Vaccine: Peds (0 to 5 Years) and At-Risk Patients (6 to 49 Years) Discontinued 12/07/2021, 11/15/2020, 11/23/2015 Hepatitis B Vaccine Aged Out No longe r eligible based on patient's age to complete this topic Insurance Medicare Medicaid [place] Medicare Medicaid [place] Care Teams Outside Maintenance Worker Relationship Specialty Start Date End Date Anabela Jin MD [address] [place], [place] PCP - General Internal Medicine 09/03/21
--- OUTSIDE RECORDS SUMMARY | 2025-05-17 11:41 | XMS_ITS | Encounter Summary ---
Author Organization [facility] Address [address] [place] [address] Phone -x2013 Care Team Providers Care Office 365 Consultant Name Role Phone Anabela Jin MD Primary Care Provid er Reason for Visit * Reason Comments Med Change Request Encounter Details Date Type Department Care Team (Late st Contact Info) Description 02/05/[address] [address] Jewell Estrada APRN [address] [place] [address] Med Change Request Social History [...] as of this encounter Care Teams Office 365 Consultant Relationship Specialty Start Date End Date Anabela Jin MD [address] [place] [address] [place] [phone] PCP - General Internal Medicine 11/24/23 documented as of this encounter
--- OUTSIDE RECORDS SUMMARY | 2025-05-17 11:41 | XMS_ITS | Clinical Summary ---
Author Organization [facility] [address] [facility] Address [address] [place] [address] Phone Care Team Providers Care Senior Sales Operations Manager Name Role Phone Anabela Jin MD [...] Comment Performing Lab: Site ID: [id number] Name: [facility] Address: [address] [place] [phone] Director: Robbin Monroy M.D. Jewell Estrada APRN URINE ORDERABLES Final Result [facility] [address] [place] [address] * (ABNORMAL) Lipid panel with reflex to direct LDL (Q) (12/18/2023 11:43 AM EDT) [facility] Cholesterol, Total 284(H) <200 mg/dL [facility] [...] LDL-C. Wade VARGAS et al. MAXIMILIANO. 2013;310(19): 4617-1083 (http://education.Dindong.Dynamaxx Mfg/faq/UWB885) Chol/HDL Ratio 5.7(H) <5.0 (calc) [facility] [...] Comment Performing Lab: Site ID: [id number] Name: [facility] Address: [address] [place] [phone] Director: Robbin Monroy M.D. Jewell Estrada APRN LAB BLOOD ORDERABLES Final Re sult [facility] [address] [place] [address], [place] * POCT glycosylated hemoglobin (HgbA1c), total (36305) (12/18/2023 9:13 AM EDT) Hemoglobin A1C, POC 11.3 4.0 - 6.0 % [facility] Test Lot Number [id number] [facility] Test Lot Exp Date 09/08/25 Date Format: MM/DD/YYYY [facility] 12/18/2023 9:13 AM EDT Jewell Estrada APRN POINT OF CARE TEST ORDERABLES Final Result [facility] [place], [place], [facility] from Last 3 Months or Most Recently Relevant to Health Maintenance Insurance MEDICARE [id number] MEDICAID MEDICARE [id number] MEDICAID MEDICAID [place] [facility] MGD MEDICARE [id number] MEDICAID Care Teams Senior Sales Operations Manager Relationship Specialty Start Date End Date Anabela Jin MD [address] [place] [address] [place] [phone] PCP - General Internal Medicine 11/24/23
--- OUTSIDE RECORDS SUMMARY | 2025-05-17 11:41 | XMS_ITS | Encounter Summary ---
Author Organization [facility] Address [address] [place] [address] Phone -x2013 Care Team Providers Care Buttermaker Continuous Churn Name Role Phone Anabela Jin MD Primary Care Provid er Reason for Visit * Reason Onset Date Comments Medication Problem 12/29/2023 semaglutide ( OZEMPIC) 0.25 mg or 0.5 mg (2 mg/3 mL) pen injector Advice Only 12/29/2023 Encounter Details Date Type Department Care Team (Late st Contact Info) Description 12/29/[address] [address] Anabela Jin MD [address] [place] [address] [place] [phone] Medication Problem (semaglutide [...] James RN - 12/29/2023 4:15 PM EDT #[id number] indonesian interpretor Called back pt and relayed medication [...] she didn't understand the previous call with advertising assistant states line was cutting out and requesting a callback to get clarification on Rx if pt has to take .25 or 0.5mg and for how long please callback to advise Specify Name of Medication: semaglutide (OZEMPIC) 0.25 mg or 0.5 mg (2 mg/3 mL) pen injector Refill status:0 Preferred Language:indonesian Caller was aware message would be routed to PCP team for review and F/U. Caller made aware of form policy. Caller verbalized understating and had no further question at this time. * Telephone Encounter - Priscilla Wilson - 12/29/2023 9:14 AM EDT Reason for call:states she didn't understand the previous call with advertising assistant states line was cutting out and requesting a callback to get clarification on Rx if pt has to take .25 and for how longplease callback to advise Medication Issue/Schedule Appointment F/FU/Authorization Request: Specify Name of Medication:semaglutide (OZEMPIC) 0.25 mg or 0.5 mg (2 mg/3 mL) pen injector Refill status:0 Preferred Language:indonesian Caller was aware message would be routed [...] documented as of this encounter Care Teams Buttermaker Continuous Churn Relationship Specialty Start Date End Date Anabela Jin MD [address] [place] [address] [place] [phone] PCP - General Internal Medicine 11/24/23 documented as of this encounter
--- OUTSIDE RECORDS SUMMARY | 2025-05-17 11:41 | XMS_ITS | Clinical Summary ---
Author Organization [facility] Address [address] [place] [address] Care Team Providers Care Wool Sampler Name Role Phone Anabela Jin MD Primary Care Provider [phone] Allergies Active Allergy Reactions Criticality Noted Date [...] 50+ (1 of 1 - PCV) 2004 RSV Vaccine 50 years and older and Patients (1 - Risk 50-74 years 1-dose series) 2004 Zoster (Shingles) Vaccine (1 of 2) 2004 DXA Bone Density (Females,Ages 65 and older) 2019 Influenza Vaccine 02/25/2025 COVID-19 Vaccine (3 - 2024-2 6 season) 2025 01/13/2021, 12/23/2020 Hepatitis B Vaccines Aged Out No long er eligible based on patient's age to complete this topic Insurance [facility] MEDICARE PART A & B Care Teams Wool Sampler Relationship Specialty Start Date End Date Anabela Jin MD [address] [place] [id number] PCP - General Family Medicine 02/17/21
== END 2025-05-17 10:52 | disposition home or self-care (01) ==
LOC: HO.HKA 10:02
PROVIDERS: PCP Internal Medicine; Visit Provider Internal Medicine Hypertension Specialist
DX: R80.9 Proteinuria, unspecified (principal); E11.21 Type 2 diabetes mellitus with diabetic nephropathy; I10 Essential (primary) hypertension
CPT/HCPCS: 99214

== ENCOUNTER → 2025-05-17 10:01 | Outpatient (BNVA) | payer MEDICARE, MEDICAID, SELFPAY | PROVIDERS: PCP Internal Medicine; Visit Provider Internal Medicine Hypertension Specialist | DX: R80.9 Proteinuria, unspecified (principal); E11.21 Type 2 diabetes mellitus with diabetic nephropathy; I10 Essential (primary) hypertension | CPT/HCPCS: 99212 ==

== ENCOUNTER 2025-07-12 14:26 | Outpatient (AMB) | payer MEDICARE, MEDICAID, SELFPAY ==
[2025-07-12 14:29] VITALS: BP 112/68; PULSE 84; O2SAT 97; BMI 27.0
--- NOTE | 2025-07-12 14:29 | A.OFFVIS_ITS ---
Vital Signs 07/12/25 14:29 Height 5 ft 2 in Weight 147 lb 7.828 oz BMI 27.0 BP 112/68 Blood Pressure Location Lt brachial Position Sitting Pulse 84 Pulse Source Pulse Oximeter Pulse Oximetry (%) 97 Oxygen Delivery Method Room Air Intake Visit Reasons: T2DM Intake Note: Patient present today for Type 2 Diabetes Mellitus Last Diabetic eye exam: Last exam was done on 07/05/25 at [facility] Last Podiatry Visit: Doesn't have one Random Glucose: 83 mg/dl HgA1C: 7.5% Trim Machine Adjuster Required: Yes Trim Machine Adjuster Language: Information Assurance Analyst Services: Trim Machine Adjuster Offered & Declined Accompanied by: Daughter and grandchild Allergies lisinopril Allergy (Severe, Verified 07/12/25 14:37) Swelling metformin Allergy (Intermediate, Verified 07/12/25 14:37) Intolerance, chest pain, high BP, diarrhea pantoprazole Allergy (Intermediate, Verified 07/12/25 14:37) rash quetiapine Allergy (Intermediate, Verified 07/12/25 14:37) chest pain empagliflozin (From Jardiance) Adverse Reaction (Intermediate, Verified 07/12/25 14:37) uti atorvastatin Adverse Reaction (Mild, Verified 07/12/25 14:37) Diarrhea orange juice Allergy (Intermediate, Uncoded 07/12/25 14:37) gerd Medication List - Last Reconciled 07/12/25 by ANTONIO Beatty acetaminophen (Tylenol) 325 mg PO QID PRN acetaminophen 500 mg PO Q6H PRN acetic acid 2% 3 drps otic (ears) Q6H 2 weeks adhesive tape (Band-Aid Paper Tape) As directed [adult diapers pull-ups Use 1 diaper 6 times a day] amlodipine 10 mg PO DAILY 90 days blood sugar diagnostic (FreeStyle Lite Strips) 3 times a day 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 meter (FreeStyle Lite Meter kit) 3 times a day 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 sensor (FreeStyle Stephon 3 Sensor device) apply new sensor every 14 days as directed 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 sensor (FreeStyle Stephon 3 Plus Sensor device) Apply 1 new sensor every 14 days as directed to monitor blood glucose continuously. 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,teacher music,cont (FreeStyle Stephon 3 Marcus) as directed chlorthalidone 25 mg PO DAILY cholecalciferol (vitamin D3) 25 mcg PO DAILY commode As directed [compression stockings knee high As directed] Dexilant (dexlansoprazole) 60 mg PO DAILY NS dicyclomine 20 mg PO QID 30 days dulaglutide (Trulicity) 3 mg (0.5 mL) subcut QWEEK elastic bandage (Coban Self-Adherent Wrap) As directed estradiol 0.01%(0.1mg/gram) (Estrace) 1 g vaginal 3XW 90 days ezetimibe 10 mg PO DAILY 90 days ferrous sulfate 325 mg PO DAILY 90 days fluticasone propionate 50 mcg/actuation (Flonase Allergy Relief) 1 spray intranasal DAILY furosemide 40 mg PO DAILY gauze bandage (Band-Aid Gauze Pads) As directed glipizide ER 2.5 mg PO DAILY glucose (Dex4 Glucose) 16 grams (4 x 4 gram) PO Q15M PRN hydrocortisone-acetic acid 1-2 % 4 drps otic (ear) right TID insulin glargine (Lantus Solostar U-100 Insulin) 10 units (0.1 mL) subcut QPM lactulose 10 grams (15 mL) PO BEDTIME PRN 30 days lancets (FreeStyle Lancets) 3 times a day loperamide (Imodium A-D) 2 mg PO BID metoclopramide HCl (Reglan) 10 mg PO QIDACHS miscellaneous medical supply As directed omega-3 fatty acids-fish oil 300-1,000 mg 1 cap PO BID pen needle, diabetic (Comfort EZ Pen [place]) Use 1 pen needle once a day [personal wipes As directed] rosuvastatin 10 mg PO BEDTIME Shower Chair As directed simethicone (Gas Relief (simethicone)) 180 mg PO BID PRN 90 days sucralfate (Carafate) 10 mL PO QIDACHS tramadol 50 mg PO BID PRN 30 days [walker with seat As directed] [wheelchair As directed] HPI Comments Details: This is a 70-year-old female with a past medical history of dementia, legal blindness, type 2 diabetes, dyslipidemia, hypertension, obesity, GERD and chronic constipation presenting for diabetic management. She is with her daughter, Nicolette and granddaughter who interprets. 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 Hemoglobin A1c is 7.5% today. Reviewed CGM data for the past 2 weeks CGM active 35% G NH 6.4% Average glucose 131 Glucose variability 44.1% Very high 5% High 13% Target range 80% Low 2% My interpretation is she has occasional postprandial hyperglycemia and low blood sugars overnight and mid afternoon. They report when they get the low alert and check her fingerstick it's normal, but they don't do this all the time. The patient has not complained of low blood sugars. This happens sometimes with the high alerts as well. Current medication regimen: Lantus 10 units nightly, glipizide ER 2.5 mg daily, Trulicity 3 mg weekly. Microvascular complications: neuropathy, nephropathy (microalbumin) Macrovascular complications: none Past medication: Intolerant to metformin which caused diarrhea, chest pain and elevated blood pressure. Jardiance discontinued due to vaginitis and UTI. She saw the music educator and sole cementer. Hypoglycemia symptoms: none. Denies episodes. Hyperglycemia symptoms: none. Denies episodes. Hypertension: treated with amlodipine 10 mg, chlorthalidone 25 mg. Intolerant to DEBBY inhibitor which caused swelling. Hyperlipidemia treated with rosuvastatin and Zetia and she takes fish oil. ROS: Constitutional: No unexplained weight loss, fever, chills. Respiratory: No shortness of breath, cough, wheezing, sputum production or hemoptysis Cardiovascular: No chest pain Gastrointestinal: No nausea, vomiting or abdominal pain. Neurologic: No headache, dizziness, syncope Skin: No rash or open wounds. Endocrine: No polyuria or polydipsia. Physical exam: Constitutional: Alert, in no distress. Mouth: No erythema, swelling or lesions. Respiratory: Clear to auscultation. Cardiovascular: S1 S2 regular. Systolic murmur. Feet: Warm and well perfused. Intact DP pulses. Skin intact. No rashes. [facility] Medical History UTI symptoms Recurrent UTI (urinary tract infection) Diabetes mellitus Dysuria Urinary frequency Aortic stenosis Uncontrolled type 2 diabetes mellitus with hyperglycemia, with long-term current use of insulin Shortness of breath Chest pain Fissure in skin of foot Impacted cerumen of left ear Dyspepsia Cyst of skin Left shoulder pain Hospital discharge follow-up Medicare annual wellness visit, subsequent Cellulitis of left leg Dementia Retinitis pigmentosa of both eyes GERD (gastroesophageal reflux disease) Obesity (BMI 30-39.9) Vitamin D deficiency Dyslipidemia Hypertension Diabetic polyneuropathy associated with type 2 diabetes mellitus Diabetic nephropathy associated with type 2 diabetes mellitus Diabetes type 2, uncontrolled Surgical History History of esophagogastroduodenoscopy (EGD) H/O colonoscopy Hx of cholecystectomy Hx of tubal ligation Hx of hernia repair Family History Father No problems noted. Mother Heart disease HTN (hypertension) Sister Pre-diabetes Brother Leukemia Son In good health Daughter In good health Daughter In good health Social History Household Members: Family Housing: Apartment Alcohol intake: never Patient Tobacco Use Status: Never used Tobacco e-Cigarette/Vaping Use: Never Used Second Hand Smoke Exposure: No service: No Current occupational status: disabled Cognitive needs: No Hearing needs: No Vision needs: No Physical Exam Vital Signs: Last Vital Signs Pulse 84 07/12/25 14:29 BP 112/68 07/12/25 14:29 Pulse Ox 97 07/12/25 14:29 Oxygen Delivery Method Room Air 07/12/25 14:29 BMI result Body Mass Index 27.0 Office Procedures Glucose Monitoring Details Details: See HPI 46468 - Glucose monitoring, continuous-physician I&R Procedure code (CPT) selection complete Results AMB Hemoglobin A1c AMB Hemoglobin A1c 7.5 % Last Edit by ALDO Silverman on 07/12/25 14:52 Results Reviewed Results Reviewed: Laboratory Last Values Glucose (Clinic) 83 mg/dL (60-115) 07/12/25 14:42 Hgb A1c (Clinic) 7.5 % (4.0-6.0) H 07/12/25 14:46 Laboratory Tests 05/12/25 10:18 Creatinine 0.89 Estimated GFR > 60 AST 35 H ALT 25 Triglycerides 155 H Cholesterol 170 LDL Cholesterol, Calc 88 HDL Cholesterol 51 Assessment & Plan Assessment & Plan (1) Diabetic nephropathy associated with type 2 diabetes mellitus: Code(s): E11.21 - Type 2 diabetes mellitus with diabetic nephropathy Category: Medical (2) Hypertension: Code(s): I10 - Essential (primary) hypertension Category: Medical Qualifiers: Hypertension type: essential hypertension Qualified Code(s): I10 - Essential (primary) hypertension (3) Dyslipidemia: Code(s): E78.5 - Hyperlipidemia, unspecified Category: Medical Plan In summary this is a 70-year-old female with Type II DM with microvascular complications.T arget A1c less than 8% given age, dementia, fall risk due to comorbidities. Continue Trulicity 3 mg weekly. Continue Lantus 10 units daily. Continue glipizide 2.5 mg daily. Reviewed diabetic diet. Reviewed comorbidities associated with type 2 diabetes. Bring glucometer to all appointments. Reviewed treatment of hypo and hyperglycemia. Denies symptoms of hypoglycemia. They have been checking a fingerstick sometimes when getting a low alert, and fingerstick has not confirmed hypoglycemia. I recommended doing this consistently. If she is having low sugars they will contact the office. LDL is at goal of less than 100. Triglycerides improved. Blood pressure is controlled. Continue current regimen. Follow up in 3 months for Type II DM. Orders: Orders AMB Glucose Monitoring Today E11.9 - Type 2 diabetes mellitus without complications AMB Hemoglobin A1c Today E11.65 - Type 2 diabetes mellitus with hyperglycemia, Z13.9 - Encounter for screening, unspecified Medications: Discontinued 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 sensor (FreeStyle Stephon 3 Sensor device) Discontinued Reason: Doctor's Order apply new sensor every 14 days as directed 2 ea 11RF Patient Instructions: Continue Trulicity 3 mg weekly. Continue Lantus 10 units daily. Continue glipizide 2.5 mg daily. If you experience low blood sugar (under 70), treat this by eating a chewable fruit candy like skittles or jelly beans (about 8 pieces), 4 ounces (1/2 cup) of fruit juice (not diet), 1 tablespoon of honey or 4 glucose tablets. If your blood sugar is under 50, take double the amount of one of the above. Recheck your blood sugar in 15 minutes. Please continue to check a fingerstick to confirm low or high blood sugars. Contin?e con Trulicity 3 mg semanalmente. Contin?e con Lantus 10 unidades diarias. Contin?e con glipizida 2.5 mg diarios. Si experimenta hipoglucemia (nivel de az?car en deb inferior a 70), tr?jennifer consumiendo caramelos de frutas masticables (aproximadamente 8 unidades), 120 ml (? taza) de jugo de frutas (no diet?kayleen), 1 cucharada de miel o 4 tabletas de glucosa. Si denson nivel de az?car en deb es inferior a 50, duplique la cantidad de cualquiera de las opciones anteriores. Vuelva a medir denson nivel de az?car en deb en 15 minutos. Por favor, contin?e realizando pruebas de punci?n digital para confirmar los niveles bajos o altos de az?car en deb. Coding Level of Care Code Est Pt Level 4 (08188) Diagnoses Diabetic nephropathy associated with type 2 diabetes mellitus E11.21 Essential hypertension I10 Hypertension type: essential hypertension Dyslipidemia E78.5 CPT Codes Details - CPT: 15475 - Glucose monitoring, continuous-physician I&R ([id number])
[2025-07-12 14:46] LABS: Glucose, Whole Blood 83 mg/dL (60-115)
--- OUTSIDE RECORDS SUMMARY | 2025-07-12 18:44 | XMS_ITS | Encounter Summary ---
Author Organization [facility] Address [address] [place] [address] Phone -x2013 Care Team Providers Care Slat Basket Top Maker Name Role Phone Anabela Jin MD Primary Care Provid er Reason for Visit * Reason Onset Date Comments Medication Problem 12/29/2023 semaglutide ( OZEMPIC) 0.25 mg or 0.5 mg (2 mg/3 mL) pen injector Advice Only 12/29/2023 Encounter Details Date Type Department Care Team ([facility] st Contact Info) Description 12/29/2023 [place] [address] Anabela Jin MD [address] [place] [address] [place] [phone] Medication Problem (semaglutide [...] James RN - 12/29/2023 4:15 PM EDT #[id number] new zealander interpretor Called back pt and relayed medication [...] she didn't understand the previous call with beet flumer states line was cutting out and requesting a callback to get clarification on Rx if pt has to take .25 or 0.5mg and for how long please callback to advise Specify Name of Medication: semaglutide (OZEMPIC) 0.25 mg or 0.5 mg (2 mg/3 mL) pen injector Refill status:0 Preferred Language:new zealander Caller was aware message would be routed to PCP team for review and F/U. Caller made aware of form policy. Caller verbalized understating and had no further question at this time. * Telephone Encounter - Priscilla Wilson - 12/29/2023 9:14 AM EDT Reason for call:states she didn't understand the previous call with beet flumer states line was cutting out and requesting a callback to get clarification on Rx if pt has to take .25 and for how longplease callback to advise Medication Issue/Schedule Appointment F/FU/Authorization Request: Specify Name of Medication:semaglutide (OZEMPIC) 0.25 mg or 0.5 mg (2 mg/3 mL) pen injector Refill status:0 Preferred Language:new zealander Caller was aware message would be routed [...] documented as of this encounter Care Teams Slat Basket Top Maker Relationship Specialty Start Date End Date Anabela Jin MD [address] [place] [address] [place] [phone] PCP - General Internal Medicine 11/24/23 documented as of this encounter
--- OUTSIDE RECORDS SUMMARY | 2025-07-12 18:44 | XMS_ITS | Encounter Summary ---
Author Organization [facility] Address [address] [place] [address] Phone -x2013 Care Team Providers Care Seismic Computer Name Role Phone Anabela Jin MD Primary Care Provid er Reason for Visit * Reason Comments Med Change Request Encounter Details Date Type Department Care Team (Late st Contact Info) Description 12/25/2023 [facility] [address] [place], [place] [id number] Jewell Estrada APRN [address] [place] [address] Med Change Request Social History [...] documented as of this encounter Care Teams Seismic Computer Relationship Specialty Start Date End Date Anabela Jin MD [address] [place] [address] [place] [address] PCP - General Internal Medicine 11/24/23 documented as of this encounter
--- OUTSIDE RECORDS SUMMARY | 2025-07-12 18:44 | XMS_ITS | Encounter Summary ---
Author Organization [facility] Address [address] [place] [address] Phone -x2013 Care Team Providers Care Pediatric Oncologist Name Role Phone Anabela Jin MD Primary Care Provid er Reason for Visit * Reason Comments Med Change Request Encounter Details Date Type Department Care Team (Late st Contact Info) Description 01/27/2024 [facility] [address] [place], [place] [id number] Jewell Estrada APRN [address] [place] [address] Med Change Request Social History [...] documented as of this encounter Care Teams Pediatric Oncologist Relationship Specialty Start Date End Date Anabela Jin MD [address] [place], [place] [phone] PCP - General Internal Medicine 11/24/23 documented as of this encounter
--- OUTSIDE RECORDS SUMMARY | 2025-07-12 18:44 | XMS_ITS | Encounter Summary ---
Author Organization [facility] Address [address] [place] [address] Phone -x2013 Care Team Providers Care Sterile Tech Name Role Phone Anabela Jin MD Primary Care Provid er Reason for Visit * Reason Comments Med Change Request Encounter Details Date Type Department Care Team (Late st Contact Info) Description 02/05/[address] [address] Jewell Estrada APRN [address] [place] [address] Med Change Request Social History [...] documented as of this encounter Care Teams Sterile Tech Relationship Specialty Start Date End Date Anabela Jin MD [address] [place] [address] [place] [address] PCP - General Internal Medicine 11/24/23 documented as of this encounter
--- OUTSIDE RECORDS SUMMARY | 2025-07-12 18:44 | XMS_ITS | Clinical Summary ---
Author Organization [employer] Address [address] [facility] [address] [place] [address] Care Team Providers Care Statistical Modeler Name Role Phone Unavailable Primary Care Provider [...] patient's age to complete this topic Insurance [facility]AND[facility] MEDICARE
--- OUTSIDE RECORDS SUMMARY | 2025-07-12 18:44 | XMS_ITS | Clinical Summary ---
Author Organization [facility] [address] [facility] Address [address] [place] [address] Phone Care Team Providers Care Sound Editor Name Role Phone Anabela Jin MD Primary [...] Comment Performing Lab: Site ID: [id number] Name: [facility] Address: [address] [place] [phone] Director: Robbin Monroy M.D. Jewell Estrada APRN URINE ORDERABLES Final Result [facility] [address] [place] [address] * (ABNORMAL) Lipid panel with reflex to [...] LDL-C. Wade VARGAS et al. MAXIMILIANO. 2013;310(19): 1634-2041 ([email or web address]/faq/[email or web address]) Chol/HDL Ratio 5.7(H) <5.0 (calc) [facility] [...] Comment Performing Lab: Site ID: [id number] Name: [facility] Address: [address] [place] [phone] Director: Robbin Monroy M.D. Jewell Estrada APRN LAB BLOOD ORDERABLES Final Re sult [facility] [address] [place] [address], [place] * POCT glycosylated hemoglobin (HgbA1c), total (99374) (12/18/2023 9:13 AM EDT) Hemoglobin A1C, POC 11.3 4.0 - 6.0 % [facility] Test Lot Number [id number] [facility] Test Lot Exp Date 09/08/25 Date Format: MM/DD/YYYY [facility] 12/18/2023 9:13 AM EDT Jewell Estrada APRN POINT OF CARE TEST ORDERABLES Final Result [facility] [place], [place], [facility] from Last 3 Months or Most Recently Relevant to Health Maintenance Insurance MEDICARE [id number] MEDICAID MEDICARE [id number] MEDICAID MEDICAID [place] [facility] MGD MEDICARE [id number] MEDICAID Care Teams Sound Editor Relationship Specialty Start Date End Date Anabela Jin MD [address] [place] [address] [place] [phone] PCP - General Internal Medicine 11/24/23
--- OUTSIDE RECORDS SUMMARY | 2025-07-12 18:44 | XMS_ITS | Clinical Summary ---
Author Organization [facility] Address [address] [place] [address] Care Team Providers Care Extractive Metallurgist Name Role Phone Anabela Jin MD Primary Care Provider [phone] Allergies Active Allergy Reactions Criticality Noted Date [...] age to complete this topic Insurance [facility] MEDICARE PART A & B Care Teams Extractive Metallurgist Relationship Specialty Start Date End Date Anabela Jin MD [address] [place] [address] PCP - General Family Medicine 02/17/21
--- OUTSIDE RECORDS SUMMARY | 2025-07-12 18:44 | XMS_ITS | Encounter Summary ---
Author Organization [facility] Address [address] [place] [address] Phone -x2013 Care Team Providers Care Cutter Hand Name Role Phone Anabela Jin MD Primary Care Provid er Reason for Visit * Reason Onset Date Comments Medication Problem 12/25/2023 dulaglutide 3 mg/0.5 mL PnIj Encounter Details Date Type Department Care Team (Late st Contact Info) Description 12/25/[address] [address] Anabela Jin MD [address] [place] [address] [place] [phone] Medication Problem (dulaglutide [...] 3 mg/0.5 mL PnIj Refill status: Preferred Language:Yakut Caller was aware message would be routed [...] documented as of this encounter Care Teams Cutter Hand Relationship Specialty Start Date End Date Anabela Jin MD [address] [place] [address] [place] [phone] PCP - General Internal Medicine 11/24/23 documented as of this encounter
--- OUTSIDE RECORDS SUMMARY | 2025-07-12 18:44 | XMS_ITS | Encounter Summary ---
Author Organization [facility] Address [address] [place] [address] Phone -x2013 Care Team Providers Care Sales Closer Name Role Phone Anabela Jin MD Primary Care Provid er Reason for Visit * Reason Comments Medication Refill Encounter Details Date Type Department Care Team (Late st Contact Info) Description 02/25/2024 Refill [facility] [address] [place], [place] [phone] Jewell Estrada APRN [address] [place] [address] Medication Refill Social History Tobacco [...] as of this encounter Care Teams Sales Closer Relationship Specialty Start Date End Date Anabela Jin MD [address] [place], [place] [phone] PCP - General Internal Medicine 11/24/23 documented as of this encounter
== END 2025-07-12 15:11 | disposition home or self-care (01) ==
LOC: HO.ENCR 14:27
PROVIDERS: PCP Internal Medicine; Visit Provider Physician Assistant Medical
DX: E11.21 Type 2 diabetes mellitus with diabetic nephropathy (principal); I10 Essential (primary) hypertension; E78.5 Hyperlipidemia, unspecified; Z13.9 Encounter for screening, unspecified; E11.65 Type 2 diabetes mellitus with hyperglycemia

== ENCOUNTER → 2025-07-12 14:26 | Outpatient (BNVA) | payer MEDICARE, MEDICAID, SELFPAY | PROVIDERS: PCP Internal Medicine; Visit Provider Physician Assistant Medical | DX: E11.21 Type 2 diabetes mellitus with diabetic nephropathy (principal); E11.65 Type 2 diabetes mellitus with hyperglycemia; E11.42 Type 2 diabetes mellitus with diabetic polyneuropathy; Z79.4 Long term (current) use of insulin; Z13.9 Encounter for screening, unspecified; Z79.85 Long-term (current) use of injectable non-insulin antidiabetic drugs | CPT/HCPCS: 82947; 83036; 99212 ==

== ENCOUNTER 2025-07-25 12:37 | Outpatient (REF) | payer MEDICARE, MEDICAID, SELFPAY ==
--- NOTE | ~2025-07-25 | US_ITS ---
CLINICAL HISTORY: N39.46 - Mixed incontinence Ultrasound kidneys. COMPARISON: None provided. Technique: Real time sonographic imaging, including color-flow imaging, was performed by the mental health aides teacher. Multiple sales support representative static images were saved for review. FINDINGS: Right kidney: Cortical medullary differentiation is maintained. Normal color flow by Doppler. Renal cyst with thin internal septation in the midpole measuring 0.9 x 1.1 x 1.1 cm. No hydronephrosis. Right kidney size: 10.4 x 4.8 x 6.4 cm Left kidney: Cortical medullary differentiation is maintained. Normal color flow by Doppler. No calculus or focal parenchymal abnormality identified. Mild left hydronephrosis. Left kidney size: 9.6 x 5.0 x 6.5 cm The urinary bladder is unremarkable. Bilateral ureteral jets visualized. Prevoid volume: 257 mL Postvoid volume: 61 mL IMPRESSION: 1. No renal calculus identified bilaterally. 2. Mild left hydronephrosis. 3. Mildly complex right renal cyst measuring up to 1.1 cm. Recommend comparison with prior imaging if available. If none available, renal protocol CT or MR would be helpful further characterization This document has been electronically signed by: Goyo Raphael MD on 07/26/2025 16:00:53
--- OUTSIDE RECORDS SUMMARY | 2025-07-25 14:30 | XMS_ITS | Clinical Summary ---
Author Organization [facility] [address] [facility] Address [address] [place] [address] Phone Care Team Providers Care Real Estate Utilization Officer Name Role Phone Anabela Jin MD [...] urine, random (01/15/2024 9:09 AM EDT) Pathologist [facility] Creatinine, Random Urine 166 20 - 275 [...] Comment Performing Lab: Site ID: [id number] Name: [facility] Address: [address] [place] [id number] Director: Robbin Monroy M.D. Jewell Estrada APRN URINE ORDERABLES Final Result [facility] [address] [place] [address] * (ABNORMAL) Lipid panel with reflex to direct LDL (Q) (12/18/2023 11:43 AM EDT) [facility] Cholesterol, Total 284(H) <200 mg/dL [facility] [...] LDL-C. Wade VARGAS et al. MAXIMILIANO. 2013;310(19): 1437-8223 (http://education.iCrumz.Fillm/faq/SMV699) Chol/HDL Ratio 5.7(H) <5.0 (calc) [facility] [...] Comment Performing Lab: Site ID: [id number] Name: [facility] Address: [address] [place] [id number] Director: Robbin Monroy M.D. Jewell Estrada APRN LAB BLOOD ORDERABLES Final Re sult [facility] [address] [place] [address], [place] * POCT glycosylated hemoglobin (HgbA1c), total (95524) (12/18/2023 9:13 AM EDT) Hemoglobin A1C, POC 11.3 4.0 - 6.0 % [facility] Test Lot Number [id number] [facility] Test Lot Exp Date 09/08/25 Date Format: MM/DD/YYYY [facility] 12/18/2023 9:13 AM EDT Jewell Estrada APRN POINT OF CARE TEST ORDERABLES Final Result [facility] [place], [place], [facility] from Last 3 Months or Most Recently Relevant to Health Maintenance Insurance MEDICARE [id number] MEDICAID MEDICARE [id number] MEDICAID MEDICAID [place] [facility] MGD MEDICARE [id number] MEDICAID Care Teams Real Estate Utilization Officer Relationship Specialty Start Date End Date Anabela Jin MD [address] [place] [address] [place] [phone] PCP - General Internal Medicine 11/24/23
--- OUTSIDE RECORDS SUMMARY | 2025-07-25 14:30 | XMS_ITS | Clinical Summary ---
Author Organization [employer] Address [address] [facility] 7[address] [place] [address] Care Team Providers Care Pipeline Executive Name Role Phone Unavailable Primary Care Provider [...] patient's age to complete this topic Insurance [facility] STANDARD MEDICARE
--- OUTSIDE RECORDS SUMMARY | 2025-07-25 14:30 | XMS_ITS | Encounter Summary ---
Author Organization [facility] Address [address] [place] [address] Phone -x2013 Care Team Providers Care Ordnance Engineer Name Role Phone Anabela Jin MD Primary Care Provid er Reason for Visit * Reason Comments Med Change Request Encounter Details Date Type Department Care Team (Late st Contact Info) Description 02/05/[address] [address] Jewell Estrada APRN [address] [place] [address] Med Change Request Social History [...] documented as of this encounter Care Teams Ordnance Engineer Relationship Specialty Start Date End Date Anabela Jin MD [address] [place] [address] [place] [phone] PCP - General Internal Medicine 11/24/23 documented as of this encounter
--- OUTSIDE RECORDS SUMMARY | 2025-07-25 14:30 | XMS_ITS | Encounter Summary ---
Author Organization [facility] Address [address] [place] [address] Phone -x2013 Care Team Providers Care Refinery Operator Visbreaking Name Role Phone Anabela Jin MD Primary Care Provid er Reason for Visit * Reason Comments Med Change Request Encounter Details Date Type Department Care Team (Late st Contact Info) Description 01/27/2024 [facility] [address] [place], [place] [phone] Jewell Estrada APRN [address] [place] [address] Med Change Request Social History [...] documented as of this encounter Care Teams Refinery Operator Visbreaking Relationship Specialty Start Date End Date Anabela Jin MD [address] [facility] [address] [place], [place] [phone] PCP - General Internal Medicine 11/24/23 documented as of this encounter
--- OUTSIDE RECORDS SUMMARY | 2025-07-25 14:30 | XMS_ITS | Clinical Summary ---
Author Organization [facility] Address [address] [place] [address] Care Team Providers Care Physical Medicine Teacher Name Role Phone Anabela Jin MD Primary Care Provider [phone] Allergies Active Allergy Reactions Criticality Noted Date [...] MEDICARE PART A & B Care Teams Physical Medicine Teacher Relationship Specialty Start Date End Date Anabela Jin MD [address] [facility] [facility] [address] [place] [id number] PCP - General Family Medicine 02/17/21
--- OUTSIDE RECORDS SUMMARY | 2025-07-25 14:30 | XMS_ITS | Encounter Summary ---
Author Organization [facility] Address [address] [place] [address] Phone -x2013 Care Team Providers Care Python Engineer Name Role Phone Anabela Jin MD Primary Care Provid er Reason for Visit * Reason Onset Date Comments Medication Problem 12/29/2023 semaglutide ( OZEMPIC) 0.25 mg or 0.5 mg (2 mg/3 mL) pen injector Advice Only 12/29/2023 Encounter Details Date Type Department Care Team ([facility] st Contact Info) Description 12/29/[address] [address] Anabela Jin MD [address] [place] [address] [place] [phone] Medication Problem (semaglutide [...] James RN - 12/29/2023 4:15 PM EDT #[id number] kenyan interpretor Called back pt and relayed [...] she didn't understand the previous call with oil sprayer states line was cutting out and requesting [...] she didn't understand the previous call with oil sprayer [place] line was cutting out and requesting [...] documented as of this encounter Care Teams Python Engineer Relationship Specialty Start Date End Date Anabela Jin MD [address] [place] [address] [place] [phone] PCP - General Internal Medicine 11/24/23 documented as of this encounter
--- OUTSIDE RECORDS SUMMARY | 2025-07-25 14:30 | XMS_ITS | Encounter Summary ---
Author Organization [facility] Address [address] [facility] [address] [place] [address] Phone Care Team Providers Care Food General Manager Name Role Phone Anabela Jin MD Primary Care Provider [phone] Reason for Visit * Reason Comments Med Refill Encounter Details Date Type Department Care Team (Late st Contact Info) Description 07/18/2025 Refill [facility] [address] [place] [phone] Rahul Jack MD [address] [facility] [address] [place] [address] Hypertension Social History Tobacco Use [...] Hypertension documented in this encounter Care Teams Food General Manager Relationship Specialty Start Date End Date Anabela Jin MD [address] [place], [place] PCP - General Internal Medicine 09/03/21 documented as of this encounter
--- OUTSIDE RECORDS SUMMARY | 2025-07-25 14:30 | XMS_ITS | Encounter Summary ---
Author Organization [facility] Address [address] [place] [address] Phone -x2013 Care Team Providers Care Studio Musician Name Role Phone Anabela Jin MD Primary Care Provid er Reason for Visit * Reason Comments Medication Refill Encounter Details Date Type Department Care Team (Late st Contact Info) Description 02/25/2024 Refill [facility] [address] [place], [place] [phone] Jewell Estrada APRN [address] [place] [address] Medication Refill Social History Tobacco [...] documented as of this encounter Care Teams Studio Musician Relationship Specialty Start Date End Date Anabela Jin MD [address] [facility] [address] [place], [place] [phone] PCP - General Internal Medicine 11/24/23 documented as of this encounter
--- OUTSIDE RECORDS SUMMARY | 2025-07-25 14:30 | XMS_ITS | Encounter Summary ---
Author Organization [facility] Address [address] [place] [address] Phone -x2013 Care Team Providers Care Inbound Sales Representative Name Role Phone Anabela Jin MD Primary Care Provid er Reason for Visit * Reason Comments Med Change Request Encounter Details Date Type Department Care Team (Late st Contact Info) Description 12/25/2023 [facility] [address] [place], [place] [phone] Jewell Estrada APRN [address] [place] [address] Med Change Request Social History [...] documented as of this encounter Care Teams Inbound Sales Representative Relationship Specialty Start Date End Date Anabela Jin MD [address] [place] [address] [place] [phone] PCP - General Internal Medicine 11/24/23 documented as of this encounter
--- OUTSIDE RECORDS SUMMARY | 2025-07-25 14:30 | XMS_ITS | Encounter Summary ---
Author Organization [facility] Address [address] [place] [address] Phone -x2013 Care Team Providers Care Personal Development Mentor Name Role Phone Anabela Jin MD Primary Care Provid er Reason for Visit * Reason Onset Date Comments Medication Problem 12/25/2023 dulaglutide 3 mg/0.5 mL PnIj Encounter Details Date Type Department Care Team (Late st Contact Info) Description 12/25/[address] [address] Anabela Jin MD [address] [place] [address] [place] [phone] Medication Problem (dulaglutide [...] 3 mg/0.5 mL PnIj Refill status: Preferred Language:Khmer Caller was aware message would be routed [...] documented as of this encounter Care Teams Personal Development Mentor Relationship Specialty Start Date End Date Anabela Jin MD [address] [place] [address] [place] [phone] PCP - General Internal Medicine 11/24/23 documented as of this encounter
--- OUTSIDE RECORDS SUMMARY | 2025-07-25 14:30 | XMS_ITS | Clinical Summary ---
Author Organization [facility] Address [address] [place] [address], [place] [address] Care Team Providers Care Neon Electrician Name Role Phone Anabela Jin MD Primary Care Provider [phone] Allergies Active Allergy Reactions Criticality Noted Date [...] Encounters Date Type Department Care Team Description 07/18/2025 Refill [facility] [address] [place] [address] Rahul Jack MD Hypertension 05/14/2025 Refill [facility] [address] [place] [address] Rahul Jack MD Hypertension from Last 3 [...] 03/19/2024 12/18/2023 Influenza Vaccine (#1) 2025 , 04/04/2023, 06/10/2019, Additional history exists Pneumococcal Vaccine: 50+ Years Completed 12/07/2021, 11/15/2020, 11/23/2015 Pneumococcal Vaccine: Peds (0 to 5 Years) and At-Risk Patients (6 to 49 Years) Discontinued 12/07/2021, 11/15/2020, 11/23/2015 Hepatitis B Vaccine Aged Out No longe r eligible based on patient's age to complete this topic Insurance Medicare Medicaid [place] Medicare Medicaid [place] Care Teams Neon Electrician Relationship Specialty Start Date End Date Anabela Jin MD [address] [facility] [address] [place] [address] PCP - General Internal Medicine 09/03/21
== END 2025-07-25 12:38 ==
LOC: HO.US 12:37
PROVIDERS: PCP Internal Medicine; Visit Provider Nurse Practitioner Family
DX: N39.46 Mixed incontinence (principal); N39.0 Urinary tract infection, site not specified; R30.0 Dysuria
CPT/HCPCS: 76770

== ENCOUNTER → 2025-07-25 12:39 | Outpatient (BNV) | payer MEDICARE, MEDICAID, SELFPAY | PROVIDERS: PCP Internal Medicine; Visit Provider Radiology Diagnostic Radiology | DX: R50.9 Fever, unspecified (principal); D72.829 Elevated white blood cell count, unspecified | CPT/HCPCS: 76770 ==

== ENCOUNTER → 2025-07-27 11:38 | Outpatient (BNV) | payer MEDICARE, MEDICAID, SELFPAY | PROVIDERS: Admitting Provider Internal Medicine; Emergency Provider Emergency Medicine Emergency Medical Services; PCP Internal Medicine; Visit Provider Internal Medicine | DX: R00.0 Tachycardia, unspecified (principal) | CPT/HCPCS: 93010 ==

== ENCOUNTER → 2025-07-27 11:38 | Outpatient (BNV) | payer MEDICARE, MEDICAID, SELFPAY | PROVIDERS: Emergency Provider Emergency Medicine Emergency Medical Services; PCP Internal Medicine; Visit Provider Radiology Diagnostic Radiology | DX: R50.9 Fever, unspecified (principal); D72.818 Other decreased white blood cell count; R42 Dizziness and giddiness | CPT/HCPCS: 71045; 71260; 74177 ==

== ENCOUNTER → 2025-07-27 15:35 | Outpatient (BNV) | payer MEDICARE, MEDICAID, SELFPAY | PROVIDERS: Admitting Provider Internal Medicine; Emergency Provider Emergency Medicine Emergency Medical Services; PCP Internal Medicine; Visit Provider Internal Medicine | DX: I10 Essential (primary) hypertension (principal) | CPT/HCPCS: 99232 ==